=== PATIENT | female | born 1945 | race Caucasian/White ===

== ENCOUNTER → 2016-06-21 | Outpatient (CLI) | payer OTHER, MEDICAID ==
[~2016-06-21] MED LIST: /DULO30CA; /DULO30CA OR; /ESOM40CA; /INSU7030; /INSU7030 SC; /LOR25TA OR; /LOR25TA PO; ADV250INH INH; ALBU83IN INH; ALEV220T26 PO; AMBI10TA; AMBI10TA OR; AMLO10TA2 PO; AMLO5TAB OR; AMOX500C PO; ASPI1TAB PO; ASPI325T PO; ASPI32ECTA PO; AZIT500T2 PO; CALC600T10; CALCTAB22 OR; CELE40TA PO; CETI10TA; CETI10TA OR; CHLORTHALIDONE PO; CIPR500T4 PO; CRES20TA PO; CRES40TA PO; Celexa OR; DIOV320T; DIOV320T PO; DOXY150C PO; DULO30CA PO; ECOT325T5; ECOT325T5 OR; FERR325T OR; FURO1TAB15 PO; FURO40TA2 PO; GABA600T3; GABA600T3 OR; GEMF600T OR; GLUC850T; GLUC850T OR; GLYB5TA PO; HUMULIN; HUMULIN N; HUMULIN N SC; HUMULIN N SUBQ; HYDR-3719 PO; HYDR4TAB OR; HYDROCODONE OR; HYDROCODONE PO; INCR1INH INH; INSUNSD SC; IPRASOL4 INH; K-TA10TA; K-TA10TA OR; LASI40TA; LASI40TA OR; LASI40TA PO; LASI80TA PO; LEVO500T32 PO; LOPR1TAB6 PO; LOPR50TA; LOPR50TA OR; LYRI200C PO; LYRI75CA OR; MAGN400C2 PO; MAGN500T5 PO; METF850T PO; METO25TAB PO; MULTCAP11 PO; MULTIVIT; MULTIVIT OR; MULTIVIT PO; NAPR-239 OR; NEUR100C OR; NEUR300C PO; NEXI40CA PO; NEXI40GR OR; NIAC500C OR; NIAS10003; NIAS500T2; NITR0.4S; NITR0.4S SL; NITR4TASL SL; NOVO70VL; NOVOLIN SC; OSEL75CA PO; PAIN325T OR; PENN1.5S TD; PENN1.5S2 TD; PERC5TAB8 OR; PERC5TAB8 PO; PERC7.5T8 OR; POTA20TA2; PRED10PA PO; PRED10TA PO; PRED20TA PO; PRED5TA PO; PREG50CA OR; RANI150C; RANI150C OR; RANI150C PO; RANI15TA PO; RHINOCORT; SIMV20TA2; SIMV20TA2 OR; SOMA350T OR; SPIR12.9 INH; SPIR1CAP INH; SPIR25TA4 PO; THERGRAN; TRAM50TA2 OR; TRIC145T19; TRIC145T19 OR; VALS40TA; VALS40TA PO; VIBR100C PO; VICT18IN SC; VOLT1GEL EX; VOLT1GEL TOP; VOLT1GEL24 TD; ZOLP5TAB PO; [UNRECOGNIZED DRUG - OTHER]; chlorthalidone PO
--- NOTE | 2016-07-09 02:00 | ECWPNPC ---
PATIENT NAME: ROSALVA MOSES : 1945 GENDER: FEMALE VISIT DATE: 06/21/2016 DISCHARGE DATE: 06/21/16 1543 VISIT LOCKED DATE TIME: PHYSICIAN: NOE VALLEJO RESOURCE: NOE VALLEJO REASON FOR APPOINTMENT 1. BACK HISTORY OF PRESENT ILLNESS HISTORY OF PRESENT ILLNESS: 70 Y/O FEMALE WITH HX OF CHRONIC LBP AND BILAT. 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 CURRENTLY USING LYRICA 200MG BID AND HYDROCODONE 10/325 UP TO 4X DAY PRN FOR SEVERE PAIN WITH GOOD EFFECT. REPORTS IMPROVED ACTIVITY TOLERANCE.HX OF MULTIPLE COMORBIDITIES AND HOSPITALIZATIONS. PAIN THE PATIENT DESCRIBES THE PAIN... THE PATIENT DESCRIBES THE PAIN... THE PATIENT DESCRIBES THE PAIN... THE PATIENT DESCRIBES THE PAIN... PAIN THE PATIENT DESCRIBES THE PAIN... THE PATIENT DESCRIBES THE PAIN... THE PATIENT DESCRIBES THE PAIN... THE PATIENT DESCRIBES THE PAIN... FALL RISK SCREENING: SCREENING :NO FALLS IN THE PAST YEAR CURRENT MEDICATIONS TAKING LYRICA 200 MG CAPSULE 1 CAPSULE ORALLY BID MDD2 TAKING ZOLPIDEM 5 MG TABLET 1 TAB(S) ORAL QHS TAKING ESOMEPRAZOLE MAGNESIUM 40 MG CAPSULE DELAYED RELEASE 1 CAPSULE ORALLY ONCE A DAY TAKING PREDNISONE 10 MG 1 TAB ORAL DAILY TAKING FUROSEMIDE 40 MG _ 1 TABLET ORALLY 2 TABLETS IN THE AM AND 1 IN PM TAKING CALCITRIOL 0.25 MCG CAPSULE 1 CAPSULE ORALLY MON, WED, FRI TAKING AMLODIPINE BESYLATE 10 MG TABLET 1 TABLET ORALLY ONCE A DAY TAKING ASPIRIN 325 MG TABLET 1 TABLET ORALLY ONCE A DAY TAKING CYMBALTA 30 MG CAPSULE DELAYED RELEASE PARTICLES 1 CAPSULE ORALLY TWICE A DAY TAKING HUMULIN N 100 UNIT/ML SUSPENSION 40 UNITS SUBCUTANEOUS BID TAKING METOPROLOL TARTRATE 25 MG TABLET 1 TABLET ORALLY TWICE A DAY TAKING NITROGLYCERIN 0.4 MG TABLET SUBLINGUAL SUBLINGUAL DIRECTED TAKING ZANTAC 150 MG TABLET 1 TABLET ORALLY DAILY TAKING CRESTOR 20 MG TABLET 1 TABLET ORALLY ONCE A DAY AT BEDTIME TAKING SPIRIVA HANDIHALER 18 MCG CAPSULE 1 CAPSULE INHALATION ONCE A DAY NEEDED TAKING ADVAIR DISKUS 250-50 MCG/DOSE AEROSOL POWDER BREATH ACTIVATED 1 PUFF INHALATION TWICE A DAY TAKING MAGNESIUM 500 MG TABLET 1 TABLET WITH A MEAL ORALLY BID TAKING SPIRONOLACTONE 25 MG TABLET 1 TABLET ORALLY EVERY OTHER DAY TAKING NORCO 10-325 MG TABLET 1 ORALLY Q6H PRN MDD4 NOT-TAKING FERROUS SULFATE 325 (65 FE) MG TABLET 1 TABLET ORALLY ONCE A DAY NOT-TAKING VITAMIN D (ERGOCALCIFEROL) 05878 UNIT CAPSULE 1 CAPSULE ORALLY ONCE A DAY NOT-TAKING HYDROCODONE-ACETAMINOPHEN 10-325 MG TABLET 1 TABLET NEEDED ORALLY EVERY 6 HOURS NEEDED NOT-TAKING DOXYCYCLINE HYCLATE 100 MG CAPSULE 1 CAPSULE ORALLY TWICE A DAY NOT-TAKING NEXIUM 40 MG 1 CAPSULE ORALLY ONCE A DAY NOT-TAKING LASIX 40 MG TABLET 2 TABLET ORALLY DAILY NOT-TAKING METFORMIN HCL 850 MG TABLET 1 TABLET WITH A MEAL ORALLY THREE TIMES A DAY NOT-TAKING DIOVAN 320 MG TABLET 1 TABLET ORALLY ONCE A DAY NOT-TAKING LYRICA 200 MG CAPSULE 1 CAPSULE ORALLY ONCE DAILY NOT-TAKING VICTOZA 1.8 MG SOLUTION PEN-INJECTOR SUBCUTANEOUS ONCE A DAY AT BEDTIME MEDICATION LIST REVIEWED AND RECONCILED WITH THE PATIENT PAST MEDICAL HISTORY CONGESTIVE HEART FAILURE HYPERTENSION 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 NEW PATIENT PAIN DIARY TODAY'S VISITNOTES FROM 0-10, WHAT LEVEL IS YOUR PAIN TODAY?0 PAIN CLINIC PFS, CLERGY, PUBLIC HEALTH REFERRALS PFS REFERRAL NEEDED?NO CLERGY REFERRAL NEEDED?NO PUBLIC HEALTH REFERRAL NEEDED?NO WAS THE PROVIDER NOTIFIED OF ANY PERTINENT INFO?NO PFS REFERRAL NEEDED?NO CLERGY REFERRAL NEEDED?NO PUBLIC HEALTH REFERRAL NEEDED?NO WAS THE PROVIDER NOTIFIED OF ANY PERTINENT INFO?NO REVIEW OF SYSTEMS CONSTITUTIONAL: ANY CHANGE IN YOUR MEDICAL CONDITION? NO . CHILLS NO . FEVER NO . INFECTION: DO YOU HAVE NEW INFECTIONS? NO . DO YOU HAVE HISTORY OF MRSA? NO . MUSCULOSKELETAL: ANY NEW PATTERNS OF PAIN OR NUMBNESS? NO . GASTROENTEROLOGY: ANY NEW CHANGE IN BOWEL CONTROL? NO . GENITOURINARY: ANY NEW CHANGE IN BLADDER CONTROL? NO . IS THERE A CHANCE YOU COULD BE ? NO . HEMATOLOGY/LYMPH: DO YOU TAKE ANY BLOOD THINNERS? (FOR EXAMPLE- COUMADIN, PLAVIX, AGGRENOX, PLATEL, PRADAXA, OR XARELTO) NO . WHEN WAS YOUR LAST DOSE? DATE: TIME: . NEUROLOGY: HAVE YOU FALLEN IN THE PAST 6 MONTHS? YES . ANY NEW EXTREMITY NUMBNESS OR WEAKNESS? NO . CARDIOLOGY: DO YOU HAVE A PACEMAKER OR DEFIBRILLATOR? NO . RESPIRATORY: HAVE YOU BEEN SICK IN THE PAST WEEK? NO . FEVER NO . FLU LIKE SYMPTOMS? NO . COUGH NO . INTEGUMENTARY: DO YOU HAVE ANY RASHES OR OPEN SORES? NO . ALLERGIC/IMMUNO: ARE YOU ALLERGIC TO SHELLFISH OR IV DYE? NO . ANY NEW ALLERGIES? NO . PSYCHIATRIC: DO YOU HAVE THOUGHTS OF HURTING YOURSELF OR SOMEONE ELSE? NO . ARE YOU ABUSED, NEGLECTED, OR IN AN UNSAFE ENVIRONMENT? NO . ENDOCRINOLOGY: ARE YOU DIABETIC? YES . OTHER: DO YOU NEED ANY PRESCRIPTIONS? YES . IF YES, PLEASE LIST: ____ . ANY NEW PROBLEMS WITH YOUR MEDICATIONS? NO . WHEN DID YOU LAST EAT? ____ . WHEN DID YOU LAST DRINK? ____ . WHAT DID YOU LAST DRINK? ____ . NAME OF PERSON DRIVING YOU HOME? ____ . DO YOU HAVE ANY OTHER QUESTIONS OR CONCERNS NO . REVIEWED BY: PROVIDER: NOE STINSON . VITAL SIGNS WT 182 LBS, HT 63 IN, BMI 32.24 INDEX, BP 144/71 MM HG, HR 57 /MIN, RR 18 /MIN, TEMP 96.7 F, OXYGEN SAT % 90, NA INITIALS SC 15:05, REVIEWED BY: KG. EXAMINATION GENERAL EXAMINATION: LUNGS:LUNG SOUNDS ARE CLEAR. HEART:HEART RATE REGULAR. MUSCULOSKELETAL:*, MUSCLE STRENGTH TESTING 3/5 BILAT.PALPATION: POSITIVE FOR PAIN OVER L/S SPINE. POSITIVE FOR PAIN OVER L/S PARSPINALS.. ASSESSMENTS POST LAMINECTOMY SYNDROME - M96.1 (PRIMARY) CHRONIC PRESCRIPTION OPIATE USE - Z79.891 TREATMENT POST LAMINECTOMY SYNDROME CONTINUE LYRICA CAPSULE, 200 MG, 1 CAPSULE, ORALLY, BID MDD2 REFILL NORCO TABLET, 10-325 MG, 1, ORALLY, Q6H PRN MDD4, 30 DAY(S), 120, REFILLS 0 NOTES: ISTOP REGISTRY REVIEWED AND DEMNOSTRATES COMPLLIANCE. BRINGS IN MEDICATIONS WHICH IS APPROPRIATE FOR WHAT WAS DISPENSED. RECENT URINE TOXICOLOGY REVIEWED. NO UNAUTHORIZED MEDICATIONS. NO ILLICIT SUBSTANCES AND PRESCRIBED MEDICATIONS WERE PRESENT. , RISKS AND BENEFITS OF NARCOTIC/OPIOD MEDICATIONS WERE REVIEWED WITH PATIENT - THIS INCLUDES BUT IS NOT LIMITED TO RISK OF DEPENDANCE/DEVELOPMENT OF ADDICTION, MOOD DISTURBANCE AND DEPRESSION, OSTEOPOROSIS, HORMONAL AND LABIDAL CHANGES, RESPIRATORY DEPRESSION AND . PATIENT IS ADVISED NOT TO DRIVE WHILE ON THESE MEDICATIONS. FOLLOW UP 2 MONTHS ELECTRONICALLY SIGNED BY MILAD ARVIZU ON 07/08/2016 AT 11:37 AM EST DISCLAIMER : THIS IS A VISIT SUMMARY EXTRACTED FROM THE [employer] CHART. IT IS NOT A COPY OF THE [employer] PROGRESS NOTE. ALINE
== END ==
LOC: M PAIN 14:40
PROVIDERS: ATTEND Nurse Practitioner Family
DX: Z09 Encounter for follow-up examination after completed treatment for conditions other than malignant neoplasm (principal); G89.29 Other chronic pain; M96.1 Postlaminectomy syndrome, not elsewhere classified; M79.661 Pain in right lower leg; M79.662 Pain in left lower leg; I50.9 Heart failure, unspecified; I10 Essential (primary) hypertension; E78.00 Pure hypercholesterolemia, unspecified; E11.9 Type 2 diabetes mellitus without complications; M19.90 Unspecified osteoarthritis, unspecified site; M48.06 Spinal stenosis, lumbar region; Z79.52 Long term (current) use of systemic steroids; Z79.82 Long term (current) use of aspirin; Z79.4 Long term (current) use of insulin; Z79.891 Long term (current) use of opiate analgesic; Z79.899 Other long term (current) drug therapy

== ENCOUNTER → 2016-07-07 | Outpatient (REF) | payer OTHER, MEDICAID ==
[2016-07-07 19:16] LABS: BACTERIA, URINE LARGE AMOUNT; HYALINE CAST, URINE NONE SEEN /lpf (0-1); SQUAMOUS EPITHELIAL CELL URINE MOD AMOUNT /hpf (SMALL AMT)
[2016-07-07 19:17] LABS: MICROSCOPIC EXAM PERFORMED
== END ==
LOC: M LAB REF 17:00
PROVIDERS: ATTEND Internal Medicine Nephrology
DX: N39.0 Urinary tract infection, site not specified (principal); N18.3 Chronic kidney disease, stage 3 (moderate)

== ENCOUNTER → 2016-08-19 | Outpatient (CLI) | payer OTHER, MEDICAID ==
--- NOTE | 2016-08-27 02:13 | ECWPNPC ---
PATIENT NAME: ROSALVA MOSES : 1945 GENDER: FEMALE VISIT DATE: 08/19/2016 DISCHARGE DATE: 08/19/16 1520 VISIT LOCKED DATE TIME: PHYSICIAN: NOE VALLEJO RESOURCE: NOE VALLEJO REASON FOR APPOINTMENT 1. BACK HISTORY OF PRESENT ILLNESS HISTORY OF PRESENT ILLNESS: 70 Y/O FEMALE WITH HX OF CHRONIC LBP AND BILAT. 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 CURRENTLY USING LYRICA 200MG BID AND HYDROCODONE 10/325 UP TO 4X DAY PRN FOR SEVERE PAIN WITH GOOD EFFECT. REPORTS IMPROVED ACTIVITY TOLERANCE.HX OF MULTIPLE COMORBIDITIES AND HOSPITALIZATIONS.STATES LAST HYDROCODONE WAS TAKEN THIS AM,AND TOOK 3 YESTERDAY. PAIN THE PATIENT DESCRIBES THE PAIN... THE PATIENT DESCRIBES THE PAIN... THE PATIENT DESCRIBES THE PAIN... THE PATIENT DESCRIBES THE PAIN... THE PATIENT DESCRIBES THE PAIN... FALL RISK SCREENING: SCREENING :NO FALLS IN THE PAST YEAR CURRENT MEDICATIONS TAKING ZOLPIDEM 5 MG TABLET 1 TAB(S) ORAL QHS TAKING ESOMEPRAZOLE MAGNESIUM 40 MG CAPSULE DELAYED RELEASE 1 CAPSULE ORALLY ONCE A DAY TAKING PREDNISONE 10 MG 1 TAB ORAL DAILY TAKING FUROSEMIDE 40 MG _ 1 TABLET ORALLY 2 TABLETS IN THE AM AND 1 IN PM TAKING CALCITRIOL 0.25 MCG CAPSULE 1 CAPSULE ORALLY MON, TUE, TUE TAKING AMLODIPINE BESYLATE 10 MG TABLET 1 TABLET ORALLY ONCE A DAY TAKING ASPIRIN 325 MG TABLET 1 TABLET ORALLY ONCE A DAY TAKING CYMBALTA 30 MG CAPSULE DELAYED RELEASE PARTICLES 1 CAPSULE ORALLY TWICE A DAY TAKING HUMULIN N 100 UNIT/ML SUSPENSION 50 UNITS SUBCUTANEOUS BID TAKING METOPROLOL TARTRATE 25 MG TABLET 1 TABLET ORALLY TWICE A DAY TAKING NITROGLYCERIN 0.4 MG TABLET SUBLINGUAL SUBLINGUAL DIRECTED TAKING ZANTAC 150 MG TABLET 1 TABLET ORALLY DAILY TAKING CRESTOR 20 MG TABLET 1 TABLET ORALLY ONCE A DAY AT BEDTIME TAKING ADVAIR DISKUS 250-50 MCG/DOSE AEROSOL POWDER BREATH ACTIVATED 1 PUFF INHALATION TWICE A DAY TAKING MAGNESIUM 500 MG TABLET 1 TABLET WITH A MEAL ORALLY BID TAKING SPIRONOLACTONE 25 MG TABLET 1 TABLET ORALLY EVERY OTHER DAY TAKING NORCO 10-325 MG TABLET 1 ORALLY Q6H PRN MDD4 TAKING LYRICA 200 MG CAPSULE 1 CAPSULE ORALLY BID MDD2 TAKING PROAIR HFA 108 (90 BASE) MCG/ACT AEROSOL SOLUTION 1 PUFF INHALATION EVERY 4-6 HOURS NEEDED NOT-TAKING SPIRIVA HANDIHALER 18 MCG CAPSULE 1 CAPSULE INHALATION ONCE A DAY NEEDED NOT-TAKING FERROUS SULFATE 325 (65 FE) MG TABLET 1 TABLET ORALLY ONCE A DAY NOT-TAKING VITAMIN D (ERGOCALCIFEROL) 47478 UNIT CAPSULE 1 CAPSULE ORALLY ONCE A DAY NOT-TAKING HYDROCODONE-ACETAMINOPHEN 10-325 MG TABLET 1 TABLET NEEDED ORALLY EVERY 6 HOURS NEEDED NOT-TAKING DOXYCYCLINE HYCLATE 100 MG CAPSULE 1 CAPSULE ORALLY TWICE A DAY NOT-TAKING NEXIUM 40 MG 1 CAPSULE ORALLY ONCE A DAY NOT-TAKING LASIX 40 MG TABLET 2 TABLET ORALLY DAILY NOT-TAKING METFORMIN HCL 850 MG TABLET 1 TABLET WITH A MEAL ORALLY THREE TIMES A DAY NOT-TAKING DIOVAN 320 MG TABLET 1 TABLET ORALLY ONCE A DAY NOT-TAKING LYRICA 200 MG CAPSULE 1 CAPSULE ORALLY ONCE DAILY NOT-TAKING VICTOZA 1.8 MG SOLUTION PEN-INJECTOR SUBCUTANEOUS ONCE A DAY AT BEDTIME MEDICATION LIST REVIEWED AND RECONCILED WITH THE PATIENT PAST MEDICAL HISTORY CONGESTIVE HEART FAILURE HYPERTENSION 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 REVIEW OF SYSTEMS CONSTITUTIONAL: ANY CHANGE IN YOUR MEDICAL CONDITION? NO . CHILLS NO . FEVER NO . INFECTION: DO YOU HAVE NEW INFECTIONS? NO . DO YOU HAVE HISTORY OF MRSA? NO . MUSCULOSKELETAL: ANY NEW PATTERNS OF PAIN OR NUMBNESS? NO . GASTROENTEROLOGY: ANY NEW CHANGE IN BOWEL CONTROL? NO . GENITOURINARY: ANY NEW CHANGE IN BLADDER CONTROL? NO . IS THERE A CHANCE YOU COULD BE ? NO . HEMATOLOGY/LYMPH: DO YOU TAKE ANY BLOOD THINNERS? (FOR EXAMPLE- COUMADIN, PLAVIX, AGGRENOX, PLATEL, PRADAXA, OR XARELTO) NO . WHEN WAS YOUR LAST DOSE? DATE: TIME: . NEUROLOGY: HAVE YOU FALLEN IN THE PAST 6 MONTHS? YES . ANY NEW EXTREMITY NUMBNESS OR WEAKNESS? NO . CARDIOLOGY: DO YOU HAVE A PACEMAKER OR DEFIBRILLATOR? NO . RESPIRATORY: HAVE YOU BEEN SICK IN THE PAST WEEK? NO . FEVER NO . FLU LIKE SYMPTOMS? NO . COUGH NO . INTEGUMENTARY: DO YOU HAVE ANY RASHES OR OPEN SORES? NO . ALLERGIC/IMMUNO: ARE YOU ALLERGIC TO SHELLFISH OR IV DYE? NO . ANY NEW ALLERGIES? NO . PSYCHIATRIC: DO YOU HAVE THOUGHTS OF HURTING YOURSELF OR SOMEONE ELSE? NO . ARE YOU ABUSED, NEGLECTED, OR IN AN UNSAFE ENVIRONMENT? NO . ENDOCRINOLOGY: ARE YOU DIABETIC? YES . OTHER: DO YOU NEED ANY PRESCRIPTIONS? YES . IF YES, PLEASE LIST: HYDROCODONE/ACETAMINOPHEN 10/325 MG . ANY NEW PROBLEMS WITH YOUR MEDICATIONS? NO . WHEN DID YOU LAST EAT? ____ . WHEN DID YOU LAST DRINK? ____ . WHAT DID YOU LAST DRINK? ____ . NAME OF PERSON DRIVING YOU HOME? ____ . DO YOU HAVE ANY OTHER QUESTIONS OR CONCERNS NO . REVIEWED BY: PROVIDER: NOE STINSON . VITAL SIGNS WT 184 LBS, HT 63 IN, BMI 32.59 INDEX, BP 137/63 MM HG, HR 63 /MIN, RR 18 /MIN, TEMP 97.0 F, OXYGEN SAT % 92%, NA INITIALS SC 14:08, REVIEWED BY: VENECIA. EXAMINATION GENERAL EXAMINATION: LUNGS:LUNG SOUNDS ARE CLEAR. HEART:HEART RATE REGULAR. MUSCULOSKELETAL:*, MUSCLE STRENGTH TESTING 3/5 BILAT.PALPATION: POSITIVE FOR PAIN OVER L/S SPINE. POSITIVE FOR PAIN OVER L/S PARSPINALS.. ASSESSMENTS POST LAMINECTOMY SYNDROME - M96.1 (PRIMARY) CHRONIC PRESCRIPTION OPIATE USE - Z79.891 TREATMENT POST LAMINECTOMY SYNDROME CONTINUE LYRICA CAPSULE, 200 MG, 1 CAPSULE, ORALLY, BID MDD2 REFILL NORCO TABLET, 10-325 MG, 1, ORALLY, Q6H PRN MDD4, 30 DAY(S), 120, REFILLS 0 NOTES: ISTOP REGISTRY REVIEWED AND DEMNOSTRATES COMPLLIANCE. BRINGS IN MEDICATIONS WHICH IS APPROPRIATE FOR WHAT WAS DISPENSED. RECENT URINE TOXICOLOGY REVIEWED. NO UNAUTHORIZED MEDICATIONS. NO ILLICIT SUBSTANCES AND PRESCRIBED MEDICATIONS WERE PRESENT. , RISKS AND BENEFITS OF NARCOTIC/OPIOD MEDICATIONS WERE REVIEWED WITH PATIENT - THIS INCLUDES BUT IS NOT LIMITED TO RISK OF DEPENDANCE/DEVELOPMENT OF ADDICTION, MOOD DISTURBANCE AND DEPRESSION, OSTEOPOROSIS, HORMONAL AND LABIDAL CHANGES, RESPIRATORY DEPRESSION AND . PATIENT IS ADVISED NOT TO DRIVE WHILE ON THESE MEDICATIONS.URINE TOX TODAY. PROCEDURE CODES FA211 ESTABILISHED PATIENT [facility]AC[facility] CHARGE G1198 BP SCR PRFRM RCMDD DEFIND SCR INTVL G7530 PAIN ASSESS POS TOOL F/U PLAN DOC 3016F PT SCRND UNHLTHY OH USE 1124F ACP DISCUSS-NO [id number] DOCD 0518F FALL PLAN OF CARE DOCD G8427 DOC MEDS VERIFIED W/PT OR RE G8417 BMI >=30 CALCUATE W/FOLLOWUP 3288F FALL RISK ASSESSMENT DOCD 4004F PT TOBACCO SCREEN RCVD TLK DISPOSITION & COMMUNICATION FOLLOW UP 2 MONTHS ELECTRONICALLY SIGNED BY MILAD ARVIZU ON 08/24/2016 AT 06:55 PM EDT DISCLAIMER : THIS IS A VISIT SUMMARY EXTRACTED FROM THE [employer] CHART. IT IS NOT A COPY OF THE [employer] PROGRESS NOTE. MTDD
== END ==
LOC: M PAIN 14:00
PROVIDERS: ATTEND Nurse Practitioner Family
DX: Z09 Encounter for follow-up examination after completed treatment for conditions other than malignant neoplasm (principal); G89.29 Other chronic pain; M96.1 Postlaminectomy syndrome, not elsewhere classified; I10 Essential (primary) hypertension; E11.9 Type 2 diabetes mellitus without complications; I50.9 Heart failure, unspecified; E78.00 Pure hypercholesterolemia, unspecified; M19.90 Unspecified osteoarthritis, unspecified site; Z79.52 Long term (current) use of systemic steroids; Z79.82 Long term (current) use of aspirin; Z79.4 Long term (current) use of insulin; Z79.891 Long term (current) use of opiate analgesic; Z79.899 Other long term (current) drug therapy

== ENCOUNTER 2016-09-21 13:27 | Emergency (ER) | payer OTHER, MEDICAID ==
[~2016-09-21] VITALS: Ht 160 cm; Wt 82.6 kg
[2016-09-21] MEDS ORDERED: NOVOINJ5 SC (13:49)
[2016-09-21] MEDS ORDERED: NORCO, ANEXSIA 5/325MG TABLET (HYDROcodone/ACETAMINOPHEN) PO ONE (14:45)
--- NOTE | 2016-09-21 15:07 | REP ---
RIGHT KNEE, FIVE VIEWS: HISTORY: Fall. There is no acute fracture or dislocation. There is narrowing of the joint spaces. Osteophytes are present on the patella. Chondrocalcinosis is present. IMPRESSION: Degenerative change as described above. Signed by Solomon Branham MD 09/21/2016 03:11 P
[2016-09-21 15:18] VITALS: BP 146/70
== END 2016-09-21 15:48 | disposition home or self-care (01) ==
LOC: M ED 14:39
DX: S80.01XA Contusion of right knee, initial encounter (principal); W19.XXXA Unspecified fall, initial encounter; Y92.099 Unspecified place in other non-institutional residence as the place of occurrence of the external cause; Y93.01 Activity, walking, marching and hiking; Y99.9 Unspecified external cause status; E11.9 Type 2 diabetes mellitus without complications; M25.761 Osteophyte, right knee; M11.261 Other chondrocalcinosis, right knee; Z79.82 Long term (current) use of aspirin; Z79.4 Long term (current) use of insulin; Z79.899 Other long term (current) drug therapy; Z91.89 Other specified personal risk factors, not elsewhere classified

== ENCOUNTER → 2016-10-18 | Outpatient (CLI) | payer OTHER, MEDICAID ==
[~2016-10-18] MED LIST changes: +NOVOINJ5 SC
--- NOTE | 2016-11-05 00:46 | ECWPNPC ---
PATIENT NAME: ROSALVA MOSES : 1945 GENDER: FEMALE VISIT DATE: 10/18/2016 DISCHARGE DATE: 10/18/16 1536 VISIT LOCKED DATE TIME: PHYSICIAN: NOE VALLEJO RESOURCE: NOE VALLEJO REASON FOR APPOINTMENT 1. BACK HISTORY OF PRESENT ILLNESS HISTORY OF PRESENT ILLNESS: 70 Y/O FEMALE WITH HX OF CHRONIC LBP AND BILAT. 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 CURRENTLY USING LYRICA 200MG BID AND HYDROCODONE 10/325 UP TO 4X DAY PRN FOR SEVERE PAIN WITH GOOD EFFECT. REPORTS IMPROVED ACTIVITY TOLERANCE.HX OF MULTIPLE COMORBIDITIES AND HOSPITALIZATIONS. PAIN THE PATIENT DESCRIBES THE PAIN... THE PATIENT DESCRIBES THE PAIN... THE PATIENT DESCRIBES THE PAIN... THE PATIENT DESCRIBES THE PAIN... THE PATIENT DESCRIBES THE PAIN... THE PATIENT DESCRIBES THE PAIN... FALL RISK SCREENING: SCREENING :NO FALLS IN THE PAST YEAR CURRENT MEDICATIONS TAKING ZOLPIDEM 5 MG TABLET 1 TAB(S) ORAL QHS TAKING ESOMEPRAZOLE MAGNESIUM 40 MG CAPSULE DELAYED RELEASE 1 CAPSULE ORALLY ONCE A DAY TAKING PREDNISONE 10 MG 1 TAB ORAL DAILY TAKING FUROSEMIDE 40 MG _ 1 TABLET ORALLY 2 TABLETS IN THE AM AND 1 IN PM TAKING CALCITRIOL 0.25 MCG CAPSULE 1 CAPSULE ORALLY MON, TUE, TUE TAKING AMLODIPINE BESYLATE 10 MG TABLET 1 TABLET ORALLY ONCE A DAY TAKING ASPIRIN 325 MG TABLET 1 TABLET ORALLY ONCE A DAY TAKING CYMBALTA 30 MG CAPSULE DELAYED RELEASE PARTICLES 1 CAPSULE ORALLY TWICE A DAY TAKING HUMULIN N 100 UNIT/ML SUSPENSION 50 UNITS SUBCUTANEOUS BID TAKING METOPROLOL TARTRATE 25 MG TABLET 1 TABLET ORALLY TWICE A DAY TAKING NITROGLYCERIN 0.4 MG TABLET SUBLINGUAL SUBLINGUAL DIRECTED TAKING ZANTAC 150 MG TABLET 1 TABLET ORALLY DAILY TAKING CRESTOR 20 MG TABLET 1 TABLET ORALLY ONCE A DAY AT BEDTIME TAKING ADVAIR DISKUS 250-50 MCG/DOSE AEROSOL POWDER BREATH ACTIVATED 1 PUFF INHALATION TWICE A DAY TAKING MAGNESIUM 500 MG TABLET 1 TABLET WITH A MEAL ORALLY BID TAKING SPIRONOLACTONE 25 MG TABLET 1 TABLET ORALLY EVERY OTHER DAY TAKING PROAIR HFA 108 (90 BASE) MCG/ACT AEROSOL SOLUTION 1 PUFF INHALATION EVERY 4-6 HOURS NEEDED TAKING LYRICA 200 MG CAPSULE 1 CAPSULE ORALLY BID MDD2 TAKING NORCO 10-325 MG TABLET 1 ORALLY Q6H PRN MDD4 TAKING MUCINEX 600 MG TABLET EXTENDED RELEASE 12 HOUR 1 TABLET NEEDED ORALLY EVERY 12 HRS NOT-TAKING SPIRIVA HANDIHALER 18 MCG CAPSULE 1 CAPSULE INHALATION ONCE A DAY NEEDED NOT-TAKING FERROUS SULFATE 325 (65 FE) MG TABLET 1 TABLET ORALLY ONCE A DAY NOT-TAKING VITAMIN D (ERGOCALCIFEROL) 97262 UNIT CAPSULE 1 CAPSULE ORALLY ONCE A DAY NOT-TAKING HYDROCODONE-ACETAMINOPHEN 10-325 MG TABLET 1 TABLET NEEDED ORALLY EVERY 6 HOURS NEEDED NOT-TAKING DOXYCYCLINE HYCLATE 100 MG CAPSULE 1 CAPSULE ORALLY TWICE A DAY NOT-TAKING NEXIUM 40 MG 1 CAPSULE ORALLY ONCE A DAY NOT-TAKING LASIX 40 MG TABLET 2 TABLET ORALLY DAILY NOT-TAKING METFORMIN HCL 850 MG TABLET 1 TABLET WITH A MEAL ORALLY THREE TIMES A DAY NOT-TAKING DIOVAN 320 MG TABLET 1 TABLET ORALLY ONCE A DAY NOT-TAKING LYRICA 200 MG CAPSULE 1 CAPSULE ORALLY ONCE DAILY NOT-TAKING VICTOZA 1.8 MG SOLUTION PEN-INJECTOR SUBCUTANEOUS ONCE A DAY AT BEDTIME MEDICATION LIST REVIEWED AND RECONCILED WITH THE PATIENT PAST MEDICAL HISTORY CONGESTIVE HEART FAILURE HYPERTENSION 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 SURGICAL HISTORY ANTERIOR POSTERIOR FUSION BACK SURGERY 12/28 LEFT FOOT NERVE ENTRAPMENT BACK SURGERY 1999 BACK SURGERY TOTAL HYSTERECTOMY CHOLECYSTECTOMY RIGHT SHOULDER SURGERY LEFT LOWER LEG VENOUS STRIPPING REVIEW OF SYSTEMS CONSTITUTIONAL: ANY CHANGE IN YOUR MEDICAL CONDITION? NO . CHILLS NO . FEVER NO . INFECTION: DO YOU HAVE NEW INFECTIONS? NO . DO YOU HAVE HISTORY OF MRSA? NO . MUSCULOSKELETAL: ANY NEW PATTERNS OF PAIN OR NUMBNESS? YES. PT STATES SHE JUST MOVED TO A NEW [place]WELLING 3 WEEKS AGO, STILL UNPACKING. PT STATES SHE HAS TO DO ALL OF THE UNPACKING HERSELF. PT C/O NEW PATTERNS OF PAIN TO LOWER BACK AND RIGHT LEG 01/06. PT STATES PAIN REGIMEN HELPS TO KEEP PAIN UNDER CONTROL. . GASTROENTEROLOGY: ANY NEW CHANGE IN BOWEL CONTROL? NO . GENITOURINARY: ANY NEW CHANGE IN BLADDER CONTROL? NO . IS THERE A CHANCE YOU COULD BE ? NO . HEMATOLOGY/LYMPH: DO YOU TAKE ANY BLOOD THINNERS? (FOR EXAMPLE- COUMADIN, PLAVIX, AGGRENOX, PLATEL, PRADAXA, OR XARELTO) NO . WHEN WAS YOUR LAST DOSE? DATE: TIME: . NEUROLOGY: HAVE YOU FALLEN IN THE PAST 6 MONTHS? YES. PT STATES BEFORE MOVING IN PREVIOUS DWELLING, PT WAS GETTING OUT OF BED, LOST BALANCE, FELL TO FLOOR INTO CLOSET ONTO BOXES. PT STATES SHE WAS ABLE TO GET UP INDEPENDANTLY, PAIN WAS NOT SO BAD SO SHE DIDN'T SEEK MEDICAL ASSISTANCE.&NBSP;. ANY NEW EXTREMITY NUMBNESS OR WEAKNESS? &NBSP;&NBSP; NO&NBSP;. CARDIOLOGY: DO YOU HAVE A PACEMAKER OR DEFIBRILLATOR? NO . RESPIRATORY: HAVE YOU BEEN SICK IN THE PAST WEEK? NO . FEVER NO . FLU LIKE SYMPTOMS? NO . COUGH NO . INTEGUMENTARY: DO YOU HAVE ANY RASHES OR OPEN SORES? NO . ALLERGIC/IMMUNO: ARE YOU ALLERGIC TO SHELLFISH OR IV DYE? NO . ANY NEW ALLERGIES? NO . PSYCHIATRIC: DO YOU HAVE THOUGHTS OF HURTING YOURSELF OR SOMEONE ELSE? NO . ARE YOU ABUSED, NEGLECTED, OR IN AN UNSAFE ENVIRONMENT? NO . ENDOCRINOLOGY: ARE YOU DIABETIC? YES . OTHER: DO YOU NEED ANY PRESCRIPTIONS? YES. LYRICA . IF YES, PLEASE LIST: ____ . ANY NEW PROBLEMS WITH YOUR MEDICATIONS? NO . WHEN DID YOU LAST EAT? ____ . WHEN DID YOU LAST DRINK? ____ . WHAT DID YOU LAST DRINK? ____ . NAME OF PERSON DRIVING YOU HOME? ____ . DO YOU HAVE ANY OTHER QUESTIONS OR CONCERNS NO . REVIEWED BY: PROVIDER: NOE STINSON . VITAL SIGNS WT 184 LBS, HT 63 IN, BMI 32.59 INDEX, BP 134/62 MM HG, HR 66 /MIN, RR 18 /MIN, TEMP 96.8 F, OXYGEN SAT % 92, SAFE IN ENV? (Y/N) Y, NA INITIALS MP, REVIEWED BY: EM. EXAMINATION GENERAL EXAMINATION: LUNGS:LUNG SOUNDS ARE CLEAR. HEART:HEART RATE REGULAR. MUSCULOSKELETAL:*, MUSCLE STRENGTH TESTING 3/5 BILAT.PALPATION: POSITIVE FOR PAIN OVER L/S SPINE. POSITIVE FOR PAIN OVER L/S PARSPINALS., TRIGGER POINTS:NOTED RIGHT LUMBAR PARASPINAL AND PIRIFORMIS. ASSESSMENTS POST LAMINECTOMY SYNDROME - M96.1 (PRIMARY) MYALGIA - M79.1 CHRONIC PRESCRIPTION OPIATE USE - Z79.891 TREATMENT POST LAMINECTOMY SYNDROME REFILL NORCO TABLET, 10-325 MG, 1, ORALLY, Q6H PRN MDD4, 30 DAY(S), 120, REFILLS 0 CONTINUE LYRICA CAPSULE, 200 MG, 1 CAPSULE, ORALLY, BID MDD2 [facility] MRI SPINE, L.S. WITHOUT [id number] NOTES: ISTOP REGISTRY REVIEWED AND DEMNOSTRATES COMPLLIANCE. BRINGS IN MEDICATIONS WHICH IS APPROPRIATE FOR WHAT WAS DISPENSED. RECENT URINE TOXICOLOGY REVIEWED. NO UNAUTHORIZED MEDICATIONS. NO ILLICIT SUBSTANCES AND PRESCRIBED MEDICATIONS WERE PRESENT. , RISKS AND BENEFITS OF NARCOTIC/OPIOD MEDICATIONS WERE REVIEWED WITH PATIENT - THIS INCLUDES BUT IS NOT LIMITED TO RISK OF DEPENDANCE/DEVELOPMENT OF ADDICTION, MOOD DISTURBANCE AND DEPRESSION, OSTEOPOROSIS, HORMONAL AND LABIDAL CHANGES, RESPIRATORY DEPRESSION AND . PATIENT IS ADVISED NOT TO DRIVE WHILE ON THESE MEDICATIONS. PROCEDURE CODES FA211 ESTABILISHED PATIENT [facility] CHARGE DISPOSITION & COMMUNICATION FOLLOW UP 2WKS POST (REASON: REQUEST RIGHT LOW BACK TPI/PIRIFORMIS) ELECTRONICALLY SIGNED BY MILAD ARVIZU ON 11/04/2016 AT 05:17 PM EDT DISCLAIMER : THIS IS A VISIT SUMMARY EXTRACTED FROM THE TEAM INTERVAL CHART. IT IS NOT A COPY OF THE TEAM INTERVAL PROGRESS NOTE. ALINE
== END ==
LOC: M PAIN 14:40
PROVIDERS: ATTEND Nurse Practitioner Family
DX: M96.1 Postlaminectomy syndrome, not elsewhere classified (principal); M79.1 Myalgia; I11.9 Hypertensive heart disease without heart failure; I50.9 Heart failure, unspecified; E78.00 Pure hypercholesterolemia, unspecified; E11.9 Type 2 diabetes mellitus without complications; M19.90 Unspecified osteoarthritis, unspecified site; M48.06 Spinal stenosis, lumbar region; Z79.52 Long term (current) use of systemic steroids; Z79.82 Long term (current) use of aspirin; Z79.4 Long term (current) use of insulin; Z79.891 Long term (current) use of opiate analgesic; Z79.899 Other long term (current) drug therapy

== ENCOUNTER → 2016-11-15 | Outpatient (CLI) | payer OTHER, MEDICAID ==
--- NOTE | 2016-11-22 16:31 | REP ---
REASON: Low back pain, status-post transpedicular screw placement L2 through L4 inclusive and bilateral. There are no prior postoperative examinations for comparison. The latest prior examination is obtained at an outside institution and is dated 07/12/2012. We have been waiting for that prior to arrive for comparison which has delayed interpretation of our exam. There is magnetic susceptibility artifact seen from L2 to L4 inclusive from transpedicular screw placement. There is a septated oval shaped 7.4 cm in length x 2.2 cm anterior to posterior x 3.1 cm in width structure of T1 and T2 prolongation seen posterior to the posterior thecal sac in the postoperative soft-tissues, midline. This extends from the mid body of L2 to the superior endplate of L5. There is loss of disc space height at every level with bone graft material seen. L2-3 through L4-5 inclusive. All of this represents a change from the prior exam. There is no abnormal signal seen in the imaged portion of the spinal cord. The conus ends at L1. At the T12-L1 level there is no abnormality or significant change from the prior exam. At the L1-2 level there was a broad based annular bulge seen in conjunction with degenerative facet joint changes and thickening of the ligamentum flava. There is mild compression of the anterior thecal sac and the factors in concert cause mild central canal stenosis, slightly increased from the prior exam. At the L2-3 level there is magnetic susceptibility artifact. There is a broad based annular bulge. There is no evidence of foraminal narrowing of central canal stenosis. At the L3-4 level magnetic susceptibility artifact is again noted. There is no evidence of a disc extrusion, foraminal narrowing, or central canal stenosis. At the L4-5 level there is no disc herniation, foraminal narrowing or fabiola central stenosis. At L5-S1 there is a slight broad based annular bulge. Degenerative facet joint changes seen bilaterally with mild thickening of the ligamentum flava. The factors are causing mild central canal stenosis but there is no disc extrusion or foraminal narrowing. IMPRESSION: 1. There is a fluid collection in the posterior soft tissues abutting the posterior thecal sac as described above. 2. Postoperative changes and chronic changes at multiple levels as described above. Signed by Chito Bateman DO 11/23/2016 02:05 P
== END ==
LOC: M RAD 17:08
PROVIDERS: ATTEND Nurse Practitioner Family
DX: M96.1 Postlaminectomy syndrome, not elsewhere classified (principal)

== ENCOUNTER 2016-12-06 15:39 | Emergency (ER) | payer MEDICAID, OTHER ==
[~2016-12-06] VITALS: Ht 157.5 cm; Wt 85.0 kg
[~2016-12-06 15:39] MED LIST changes: -AVEL1TAB3 PO; -ESOM1CAP5
[2016-12-06] MEDS ORDERED: ESOM1CAP5 (15:58)
[2016-12-06] MEDS ORDERED: methylPREDNISolone INJ 125 MG/2 ML VIAL (J2930) IV ONE (16:45)
[2016-12-06] MEDS ORDERED: IPRATROPIUM 0.5MG/ALBUTEROL 2.5MG INH SOL UD 3ML (DUONEB)(J7620) NEB ONE (16:45)
[2016-12-06 16:54] LABS: BASO # 0.1 K/mm3 (0.0-0.2); BASO % 0.4 % (0.0-1.0); EOS # 0.1 K/mm3 (0.0-0.50); EOS % 0.6 % (0.0-3.0); LARGE UNSTAINED CELL # 0.1 K/mm3 (0.0-0.4); LARGE UNSTAINED CELL % 0.6 % (0.0-4.0); LYMPH # 1.5 K/mm3 (1.5-4.5); LYMPH % 10.2 % (24.0-44.0); MEAN CORPUSCULAR HEMOGLOBIN 28.7 pg (27.0-33.0); MEAN CORPUSCULAR VOLUME 86.9 fl (80.0-96.0); MONO # 0.4 K/mm3 (0.0-0.8); MONO % 3.1 % (0.0-5.0); NEUTROPHILS # 11.8 K/mm3 (1.8-7.7); NEUTROPHILS % 85.1 % (36.0-66.0); PLATELET COUNT, AUTOMATED 193 k/mm3 (150-450); RED CELL DISTRIBUTION WIDTH 15.4 % (11.5-14.5); WHITE BLOOD COUNT 13.9 K/mm3 (4.0-10.0)
--- NOTE | 2016-12-06 17:04 | REP ---
Chest one-view HISTORY: Shoulder pain Comparison: 08/25/2015 The lungs are clear. The cardiac silhouette is enlarged. The pulmonary vasculature is normal in appearance. Impression: Cardiomegaly. Signed by Solomon Branham MD 12/06/2016 04:55 P
[2016-12-06 17:20] LABS: CALCIUM LEVEL 9.1 MG/DL (8.8-10.2); CREATININE FOR GFR 1.37 MG/DL (0.55-1.02); GLOMERULAR FILTRATION RATE 40.5 (>39); POTASSIUM SERUM 4.2 MEQ/L (3.5-5.1)
--- NOTE | 2016-12-06 17:27 | REP ---
RIGHT SHOULDER, ONE VIEW: HISTORY: Pain. There is no acute fracture or dislocation. The joint spaces are normal in appearance. An osteophyte is present on the coracoid process. IMPRESSION: Degenerative change as described above. Signed by Solomon Branham MD 12/06/2016 05:51 P
[2016-12-06 18:19] VITALS: BP 144/65
--- NOTE | 2016-12-06 18:37 | REP ---
BILATERAL LOWER EXTREMITY DUPLEX VEINS: HISTORY: Swelling. Right lower extremity, there are no filling defects in the deep venous system. The deep venous system is patent. IMPRESSION: There is no deep venous thrombosis. Left lower extremity, there are no filling defects in the deep venous system. The deep venous system is patent. IMPRESSION: There is no deep venous thrombosis. Signed by Solomon Branham MD 12/06/2016 06:40 P
--- NOTE | 2016-12-07 18:23 | ECGEPIP ---
Stationary ECG Study [facility] - ED Test Date: 2016-12-06 Pat Name: ROSALVA MOSES Department: Room: - Gender: F Material Coordinator: sam : 1945 Requested By: MELLY Wall Order Number: [id number] Reading MD: Yudy Roblero Measurements Intervals [place] Rate: 51 P: 39 PA: 170 QRS: -59 QRSD: 97 T: 84 QT: 466 QTc: 431 Interpretive Statements SINUS BRADYCARDIA LEFT ANTERIOR FASCICULAR BLOCK NONSPECIFIC ST & T-WAVE ABNORMALITY BASELINE ARTIFACT LIMITS INTERPRETATION Electronically Signed On 12-07-2016 18:22:48 EDT by Yudy Roblero
== END 2016-12-06 18:36 | disposition home or self-care (01) ==
LOC: M ED 15:39
DX: E06.9 Thyroiditis, unspecified (principal); N18.9 Chronic kidney disease, unspecified; R06.02 Shortness of breath; R60.9 Edema, unspecified; I50.9 Heart failure, unspecified; E11.9 Type 2 diabetes mellitus without complications; I10 Essential (primary) hypertension; G47.30 Sleep apnea, unspecified; F17.200 Nicotine dependence, unspecified, uncomplicated; I51.7 Cardiomegaly; M25.711 Osteophyte, right shoulder; Z79.82 Long term (current) use of aspirin; Z79.899 Other long term (current) drug therapy; Z79.4 Long term (current) use of insulin; Z91.89 Other specified personal risk factors, not elsewhere classified
CPT/HCPCS: 36415; 71010; 73020; 80048; 83880; 84432; 84439; 84443; 85025; 86800; 93005; 93041; 93970; 94640; 94760; 96374; 99284; J2930

== ENCOUNTER → 2016-12-06 | Outpatient (CLI) | payer OTHER, MEDICAID ==
[~2016-12-06] MED LIST changes: +ASPI325T24 PO; -ASPI32ECTA PO; +AVEL1TAB3 PO; +ESOM1CAP5; -FURO1TAB15 PO; +FURO80TA2 PO; +LEVO500T3 PO; -LEVO500T32 PO; -METF850T PO; +METF850T4 PO; +VOLT1GEL15 TD; -VOLT1GEL24 TD
[2016-12-06 17:44] LABS: FREE T4 1.03 NG/DL (0.76-1.46)
== END ==
LOC: M LAB 15:16
PROVIDERS: ATTEND Otolaryngology
DX: E06.9 Thyroiditis, unspecified (principal)

== ENCOUNTER 2017-01-02 13:43 | Emergency (ER) | payer OTHER ==
[~2017-01-02 13:43] MED LIST changes: +ESOM1CAP5
[2017-01-02 13:54] VITALS: BP 138/66
== END 2017-01-02 14:47 | disposition home or self-care (01) ==
LOC: M ED 13:43 → EDBD 13:43 → M ED 14:47
DX: S69.91XA Unspecified injury of right wrist, hand and finger(s), initial encounter (principal); S59.911A Unspecified injury of right forearm, initial encounter; W22.8XXA Striking against or struck by other objects, initial encounter; Y92.512 Supermarket, store or market as the place of occurrence of the external cause; Y93.9 Activity, unspecified; Y99.9 Unspecified external cause status; I50.9 Heart failure, unspecified; I10 Essential (primary) hypertension; E11.9 Type 2 diabetes mellitus without complications; G89.29 Other chronic pain; F17.200 Nicotine dependence, unspecified, uncomplicated; Z79.82 Long term (current) use of aspirin; Z79.899 Other long term (current) drug therapy; Z79.4 Long term (current) use of insulin; Z79.52 Long term (current) use of systemic steroids; Z91.89 Other specified personal risk factors, not elsewhere classified

== ENCOUNTER → 2017-01-03 | Outpatient (CLI) | payer OTHER, MEDICAID ==
[~2017-01-03] MED LIST changes: +AVEL1TAB3 PO; +BUPIVACAINE HCL 0.25% 10 ML VIAL As Ordered ONE; +BUPIVACAINE HCL 0.25% 30 ML VIAL As Ordered ONE; +diazePAM 5 MG TAB As Ordered ONE
--- NOTE | 2017-01-09 23:24 | ECWPNPC ---
PATIENT NAME: ROSALVA MOSES : 1945 GENDER: FEMALE VISIT DATE: 01/03/2017 DISCHARGE DATE: 01/03/17 161 VISIT LOCKED DATE TIME: PHYSICIAN: AAKASH FREEMAN RESOURCE: AAKASH FREEMAN REASON FOR APPOINTMENT 1. BILATERAL LOWER BACK AREA HISTORY OF PRESENT ILLNESS HISTORY OF PRESENT ILLNESS: PAIN THE PATIENT DESCRIBES THE PAIN... FALL RISK SCREENING: SCREENING :NO FALLS IN THE PAST YEAR CURRENT MEDICATIONS TAKING ZOLPIDEM 5 MG TABLET 1 TAB(S) ORAL QHS, NOTES: 01-02-172099 TAKING ESOMEPRAZOLE MAGNESIUM 40 MG CAPSULE DELAYED RELEASE 1 CAPSULE ORALLY ONCE A DAY, NOTES: 01-03-17799 TAKING PREDNISONE 10 MG 1 TAB ORAL DAILY, NOTES: 01-03-17799 TAKING FUROSEMIDE 40 MG _ 1 TABLET ORALLY 2 TABLETS IN THE AM AND 1 IN PM, NOTES: 01-03-17799 TAKING CALCITRIOL 0.25 MCG CAPSULE 1 CAPSULE ORALLY TUE, TUE, TUE, NOTES: 01-03-17799 TAKING AMLODIPINE BESYLATE 10 MG TABLET 1 TABLET ORALLY ONCE A DAY, NOTES: 01-03-17799 TAKING ASPIRIN 325 MG TABLET 1 TABLET ORALLY ONCE A DAY, NOTES: 01-03-172099 TAKING CYMBALTA 30 MG CAPSULE DELAYED RELEASE PARTICLES 1 CAPSULE ORALLY TWICE A DAY, NOTES: 01-03-17799 TAKING HUMULIN N 100 UNIT/ML SUSPENSION 50 UNITS SUBCUTANEOUS BID, NOTES: 01-03-17799 TAKING METOPROLOL TARTRATE 25 MG TABLET 1 TABLET ORALLY TWICE A DAY, NOTES: 01-03-17799 TAKING NITROGLYCERIN 0.4 MG TABLET SUBLINGUAL SUBLINGUAL DIRECTED, NOTES: NOT LATELY TAKING ZANTAC 150 MG TABLET 1 TABLET ORALLY DAILY, NOTES: 01-03-17799 TAKING CRESTOR 20 MG TABLET 1 TABLET ORALLY ONCE A DAY AT BEDTIME, NOTES: 01-03-17799 TAKING ADVAIR DISKUS 250-50 MCG/DOSE AEROSOL POWDER BREATH ACTIVATED 1 PUFF INHALATION TWICE A DAY, NOTES: NOT LATELY TAKING MAGNESIUM 500 MG TABLET 1 TABLET WITH A MEAL ORALLY BID, NOTES: 01-03-17699 TAKING SPIRONOLACTONE 25 MG TABLET 1 TABLET ORALLY EVERY OTHER DAY, NOTES: 01-03-17799 TAKING PROAIR HFA 108 (90 BASE) MCG/ACT AEROSOL SOLUTION 1 PUFF INHALATION EVERY 4-6 HOURS NEEDED, NOTES: 01-03-17 0800 TAKING MUCINEX 600 MG TABLET EXTENDED RELEASE 12 HOUR 1 TABLET NEEDED ORALLY EVERY 12 HRS, NOTES: NOT LATELY TAKING LYRICA 200 MG CAPSULE 1 CAPSULE ORALLY BID MDD2, NOTES: 01-03-17 0800 TAKING HYDROCODONE-ACETAMINOPHEN 10-325 MG TABLET 1 TABLET NEEDED ORALLY Q6H PRN MDD4, NOTES: 01-03 0800 NOT-TAKING NORCO 10-325 MG TABLET 1 ORALLY Q6H PRN MDD4 NOT-TAKING SPIRIVA HANDIHALER 18 MCG CAPSULE 1 CAPSULE INHALATION ONCE A DAY NEEDED NOT-TAKING FERROUS SULFATE 325 (65 FE) MG TABLET 1 TABLET ORALLY ONCE A DAY NOT-TAKING VITAMIN D (ERGOCALCIFEROL) 46416 UNIT CAPSULE 1 CAPSULE ORALLY ONCE A DAY NOT-TAKING DOXYCYCLINE HYCLATE 100 MG CAPSULE 1 CAPSULE ORALLY TWICE A DAY NOT-TAKING NEXIUM 40 MG 1 CAPSULE ORALLY ONCE A DAY NOT-TAKING LASIX 40 MG TABLET 2 TABLET ORALLY DAILY NOT-TAKING METFORMIN HCL 850 MG TABLET 1 TABLET WITH A MEAL ORALLY THREE TIMES A DAY NOT-TAKING DIOVAN 320 MG TABLET 1 TABLET ORALLY ONCE A DAY NOT-TAKING LYRICA 200 MG CAPSULE 1 CAPSULE ORALLY ONCE DAILY NOT-TAKING VICTOZA 1.8 MG SOLUTION PEN-INJECTOR SUBCUTANEOUS ONCE A DAY AT BEDTIME MEDICATION LIST REVIEWED AND RECONCILED WITH THE PATIENT PAST MEDICAL HISTORY CONGESTIVE HEART FAILURE HYPERTENSION 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 SURGICAL HISTORY ANTERIOR POSTERIOR FUSION BACK SURGERY 12/28 LEFT FOOT NERVE ENTRAPMENT BACK SURGERY 1999 BACK SURGERY TOTAL HYSTERECTOMY CHOLECYSTECTOMY RIGHT SHOULDER SURGERY LEFT LOWER LEG VENOUS STRIPPING REVIEW OF SYSTEMS REVIEWED BY: PROVIDER: . CONSTITUTIONAL: ANY CHANGE IN YOUR MEDICAL CONDITION? NO . CHILLS NO . FEVER NO . INFECTION: DO YOU HAVE NEW INFECTIONS? NO . DO YOU HAVE HISTORY OF MRSA? NO . MUSCULOSKELETAL: ANY NEW PATTERNS OF PAIN OR NUMBNESS? NO . GASTROENTEROLOGY: ANY NEW CHANGE IN BOWEL CONTROL? NO . GENITOURINARY: ANY NEW CHANGE IN BLADDER CONTROL? NO . IS THERE A CHANCE YOU COULD BE ? NO . HEMATOLOGY/LYMPH: DO YOU TAKE ANY BLOOD THINNERS? (FOR EXAMPLE- COUMADIN, PLAVIX, AGGRENOX, PLATEL, PRADAXA, OR XARELTO) NO . WHEN WAS YOUR LAST DOSE? DATE: TIME: . NEUROLOGY: HAVE YOU FALLEN IN THE PAST 6 MONTHS? [facility]CO[facility] ACCIDENT AT [facility] YES, YESTERDAY . ANY NEW EXTREMITY NUMBNESS OR WEAKNESS? NO . CARDIOLOGY: DO YOU HAVE A PACEMAKER OR DEFIBRILLATOR? NO . RESPIRATORY: HAVE YOU BEEN SICK IN THE PAST WEEK? NO . FEVER NO . FLU LIKE SYMPTOMS? NO . COUGH NO . INTEGUMENTARY: DO YOU HAVE ANY RASHES OR OPEN SORES? NO . ALLERGIC/IMMUNO: ARE YOU ALLERGIC TO SHELLFISH OR IV DYE? NO . ANY NEW ALLERGIES? NO . PSYCHIATRIC: DO YOU HAVE THOUGHTS OF HURTING YOURSELF OR SOMEONE ELSE? NO . ARE YOU ABUSED, NEGLECTED, OR IN AN UNSAFE ENVIRONMENT? NO . ENDOCRINOLOGY: ARE YOU DIABETIC? NO . OTHER: DO YOU NEED ANY PRESCRIPTIONS? NO . IF YES, PLEASE LIST: ____ . ANY NEW PROBLEMS WITH YOUR MEDICATIONS? NO . WHEN DID YOU LAST EAT? ____ . WHEN DID YOU LAST DRINK? ____ . WHAT DID YOU LAST DRINK? ____ . NAME OF PERSON DRIVING YOU HOME? ____ . DO YOU HAVE ANY OTHER QUESTIONS OR CONCERNS NO . VITAL SIGNS WT 185 LBS, HT 63 IN, BMI 32.77 INDEX, BP 165/77 MM HG, HR 61 /MIN, RR 18 /MIN, TEMP 98.5 F, OXYGEN SAT % 93%, NA INITIALS TR 1449, REVIEWED BY: KG. ASSESSMENTS MYALGIA - M79.1 (PRIMARY) PROCEDURES PN TRIGGER POINT INJECTION NO STEROIDS PRE PROCEDURE DIAGNOSIS 1. MYALGIA 2. PAIN AT BILATERAL LOWER BACK AREA POST PROCEDURE DIAGNOSIS 1. MYALGIA 2. PAIN AT BILATERAL LOWER BACK AREA PROCEDURE TRIGGER POINT INJECTION AT BILATERAL LOWER BACK AREA SURGEON DR. AAKASH FREEMAN ALLERGIST/IMMUNOLOGIST PHYSICIAN NONE ANESTHESIA LOCAL PRE PROCEDURE NOTE 71 YEAR-OLD PATIENT WITH HISTORY OF CHRONIC PAIN AT RIGHT AND LEFT LOWER BACK AREA. I EVALUATED THE PATIENT AND REVIEWED THE CHART. THERE IS EVIDENCE OF BANDS OF TISSUE WITH RESTRICTION OF MOVEMENT AND PRESENCE OF TRIGGER POINT AT THE AFFECTED AREA. I WENT OVER THE RISKS, ALTERNATIVES, AND BENEFITS ASSOCIATED WITH THIS PROCEDURE. THE PATIENT WOULD LIKE TO PROCEED AND GAVE CONSENT TO PERFORM THE PROCEDURE. THE PATIENT DENIES UNEXPLAINABLE WEIGHT LOSS, FEVER, CHILLS, OR NEW CHANGES IN URINARY OR BOWEL CONTROL. DESCRIPTION OF PROCEDURE THE PATIENT WAS BROUGHT TO THE PROCEDURE ROOM AND PLACED IN THE SITTING PRONE POSITION. THE AREA WAS CLEANED WITH ALCOHOL. THE PROCEDURE WAS DONE USING ASEPTIC STERILE TECHNIQUES. I CHECKED LATERALITY AND THE LEVEL WHERE THE PROCEDURE WAS GOING TO BE PERFORMED WITH THE PATIENT AND THE SUPPORTING STAFF AT THE MOMENT OF THE TIME OUT IN THE PROCEDURE ROOM. USING A 25-GAUGE NEEDLE, TRIGGER POINTS WERE INJECTED AT RIGHT AND LEFT LOWER BACK AREA WITH A TOTAL OF 40 ML OF BUPIVACAINE 0.25%. AGREED WITH THE PATIENT THE PROCEDURE WAS DONE WITHOUT STEROIDS. THERE WAS NO EVIDENCE OF BLOOD, PARESTHESIA OR CEREBROSPINAL FLUID DURING THE PROCEDURE. THE PATIENT WAS SENT TO THE RECOVERY ROOM. THE PATIENT WAS MOVING THE EXTREMITIES AND DOING WELL. THERE WAS NO COMPLICATION DURING THE PROCEDURE. POST PROCEDURE NOTE THE PATIENT WILL BE SEEN IN A FOLLOW UP IN THE NEXT FEW WEEKS. INSTRUCTIONS WERE GIVEN, QUESTIONS WERE ANSWERED, AND THE PATIENT EXPRESSED UNDERSTANDING AND AGREED WITH THE PLAN. I, TAMELA FITCH, DOCUMENTED THE ABOVE INFORMATION ACTING A SCRIBE FOR DR. FREEMAN. I, DR. FREEMAN, HAVE REVIEWED THE ABOVE DOCUMENT, SCRIBED BY TAMELA FITCH, AND I VERIFY THAT IT IS ACCURATE PROCEDURE CODES 87288 INJ TRIGGER POINT / MUSCL DISPOSITION & COMMUNICATION FOLLOW UP 3 WEEKS ELECTRONICALLY SIGNED BY AAKASH FREEMAN MD ON 01/09/2017 AT 07:49 AM EDT DISCLAIMER : THIS IS A VISIT SUMMARY EXTRACTED FROM THE [employer] CHART. IT IS NOT A COPY OF THE [employer] PROGRESS NOTE. MTDD
== END ==
LOC: M PAIN 14:40
PROVIDERS: ATTEND Anesthesiology
DX: G89.29 Other chronic pain (principal); M54.5 Low back pain; M79.1 Myalgia; I10 Essential (primary) hypertension; E78.00 Pure hypercholesterolemia, unspecified; E11.9 Type 2 diabetes mellitus without complications; M19.90 Unspecified osteoarthritis, unspecified site; Z79.52 Long term (current) use of systemic steroids; Z79.82 Long term (current) use of aspirin; Z79.4 Long term (current) use of insulin; Z79.891 Long term (current) use of opiate analgesic; Z79.899 Other long term (current) drug therapy

== ENCOUNTER 2017-01-11 12:51 | Emergency (ER) | payer OTHER, MEDICAID ==
[~2017-01-11] VITALS: Ht 157.5 cm; Wt 83.9 kg
[~2017-01-11 12:51] MED LIST changes: -AVEL1TAB3 PO; -BUPIVACAINE HCL 0.25% 10 ML VIAL As Ordered ONE; -BUPIVACAINE HCL 0.25% 30 ML VIAL As Ordered ONE; -diazePAM 5 MG TAB As Ordered ONE
[2017-01-11 12:52] VITALS: BP 149/70
== END 2017-01-11 14:40 | disposition home or self-care (01) ==
LOC: M ED 12:51
DX: Z48.00 Encounter for change or removal of nonsurgical wound dressing (principal); Z51.89 Encounter for other specified aftercare; S51.801D Unspecified open wound of right forearm, subsequent encounter; Y92.9 Unspecified place or not applicable; Y93.9 Activity, unspecified; Y99.9 Unspecified external cause status; X58.XXXD Exposure to other specified factors, subsequent encounter; F17.200 Nicotine dependence, unspecified, uncomplicated; Z86.73 Personal history of transient ischemic attack (TIA), and cerebral infarction without residual deficits; I50.9 Heart failure, unspecified; E78.00 Pure hypercholesterolemia, unspecified; I10 Essential (primary) hypertension; J44.9 Chronic obstructive pulmonary disease, unspecified; G47.30 Sleep apnea, unspecified; Z87.01 Personal history of pneumonia (recurrent); H54.42 Blindness, left eye, normal vision right eye; K21.9 Gastro-esophageal reflux disease without esophagitis; Z87.440 Personal history of urinary (tract) infections; Z85.3 Personal history of malignant neoplasm of breast; E11.9 Type 2 diabetes mellitus without complications; M54.9 Dorsalgia, unspecified; F32.9 Major depressive disorder, single episode, unspecified; Z79.82 Long term (current) use of aspirin; Z79.4 Long term (current) use of insulin; Z79.899 Other long term (current) drug therapy; Z91.89 Other specified personal risk factors, not elsewhere classified

== ENCOUNTER 2017-01-31 12:36 | Emergency (ER) | payer OTHER, MEDICAID ==
[~2017-01-31] VITALS: Ht 157.5 cm; Wt 84.0 kg
--- NOTE | 2017-01-31 14:20 | REP ---
Clinical: Cough. Technique: PA and lateral. Comparison: 12/06/2016. Findings: Stable cardiomegaly and diffuse interstitial changes are appreciated. Superimposed interstitial edema as well as basilar atelectasis cannot be excluded. No focal consolidation, effusion, or pneumothorax. Skeletal structures intact. Impression: Stable cardiomegaly and interstitial changes. Cannot exclude interstitial edema or scattered atelectasis. Signed by Jose Briggs MD 01/31/2017 02:12 P
[2017-01-31] MEDS ORDERED: AVEL1TAB3 PO (14:26)
[2017-01-31] MEDS ORDERED: MOXIFLOXACIN 400 MG TAB PO ONE (14:30)
[2017-01-31 14:43] VITALS: BP 151/69
[2017-01-31] MEDS ORDERED: FLUCONAZOLE 100 MG TAB PO ONE (15:00)
== END 2017-01-31 14:58 | disposition home or self-care (01) ==
LOC: M ED 12:36
DX: J20.9 Acute bronchitis, unspecified (principal); I51.7 Cardiomegaly; I50.9 Heart failure, unspecified; E11.9 Type 2 diabetes mellitus without complications; I10 Essential (primary) hypertension; Z87.440 Personal history of urinary (tract) infections; Z87.01 Personal history of pneumonia (recurrent); F17.200 Nicotine dependence, unspecified, uncomplicated; Z79.82 Long term (current) use of aspirin; Z79.4 Long term (current) use of insulin; Z79.899 Other long term (current) drug therapy; Z91.89 Other specified personal risk factors, not elsewhere classified

== ENCOUNTER → 2017-02-22 | Outpatient (CLI) | payer OTHER, MEDICAID ==
[~2017-02-22] MED LIST changes: +AVEL1TAB3 PO
--- NOTE | 2017-02-22 16:37 | REPMRS ---
Patient History The patient states she has not had a clinical breast exam in over a year. No known family history of cancer. Benign radio exam breast specimen, December 26, 2013. Benign localization of breast nodule of the right breast, December 26, 2013. Digital Mammo Screening Bilat: February 22, 2017 - Exam #: [id number] Bilateral CC and MLO view(s) were taken. Technologist: Rosio Sevilla Technologist Prior study comparison: February 13, 2016, bilateral digital mammo screening bilat performed at [facility], [place]. February 04, 2015, digital mammo diagnostic bilateral performed at [facility] [place]. FINDINGS: The breast tissue is extremely dense which could obscure a lesion on mammography. There is no evidence of cancer on this mammogram. No significant changes when compared with prior studies. ASSESSMENT: BI-RADS/ACR category 2 mammogram. Benign finding(s). Recommendation Routine screening mammogram of both breasts in 1 year (for women over age 40). This mammogram was interpreted with the aid of an FDA-approved computer-aided dectection system. Electronically Signed By: Dominic Louise MD 02/22/17 7030
== END ==
LOC: M RAD 14:56
PROVIDERS: ATTEND Internal Medicine
DX: Z12.31 Encounter for screening mammogram for malignant neoplasm of breast (principal)

== ENCOUNTER → 2017-02-22 | Outpatient (CLI) | payer OTHER, MEDICAID ==
--- NOTE | 2017-02-23 04:32 | REP ---
Clinical: Follow up abnormal findings. Comparison: 03/18/2016. Findings: Chronic progressive moderate fibrosis and interstitial changes/scarring are again identified and appear somewhat increased when compared to prior examinations. Current examination suggests cardiomegaly with chronic pulmonary vascular congestion including cephalization and prominent pulmonary vasculature. Significant atherosclerotic changes to the thoracic aorta and coronary arteries remains relatively stable. No obvious acute consolidation, nodule or mass lesion identified. No pleural effusion or pneumothorax. The tracheobronchial tree is patent. Mediastinal adenopathy including a precarinal lymph nodes measuring up to 19 mm are unchanged as well as a left superior mediastinal soft tissue mass measuring approximately 4.7 x 2.3 x 2.4 cm (images 10 - 23). Surrounding musculoskeletal structures demonstrate age-related degenerative changes without focal osseous abnormality. Limited evaluation of the upper abdomen demonstrates normal bilateral adrenal glands. Impression: 1. Moderate chronic, progressive fibrosis and interstitial changes along with stable mediastinal adenopathy and stable left superior mediastinal soft tissue mass. 2. Chronic cardiomegaly and chronic pulmonary vascular congestion. 3. No acute, new mediastinal or pleuroparenchymal process identified. Signed by Jose Briggs MD 02/23/2017 04:23 A
== END ==
LOC: M RAD 14:53
PROVIDERS: ATTEND Internal Medicine Pulmonary Disease
DX: R91.8 Other nonspecific abnormal finding of lung field (principal); Z12.31 Encounter for screening mammogram for malignant neoplasm of breast
CPT/HCPCS: 71250; G0202

== ENCOUNTER → 2017-03-01 | Outpatient (CLI) | payer OTHER, MEDICAID ==
--- NOTE | 2017-03-22 01:58 | ECWPNPC ---
PATIENT NAME: ROSALVA MOSES : 1945 GENDER: FEMALE VISIT DATE: 03/01/2017 DISCHARGE DATE: 03/01/17 1541 VISIT LOCKED DATE TIME: PHYSICIAN: NOE VALLEJO RESOURCE: NOE VALLEJO REASON FOR APPOINTMENT 1. MEDS HISTORY OF PRESENT ILLNESS HISTORY OF PRESENT ILLNESS: 70 Y/O FEMALE WITH HX OF CHRONIC LBP AND BILAT. 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 CURRENTLY USING LYRICA 200MG BID AND HYDROCODONE 10/325 UP TO 4X DAY PRN FOR SEVERE PAIN WITH GOOD EFFECT. REPORTS IMPROVED ACTIVITY TOLERANCE.HX OF MULTIPLE COMORBIDITIES AND HOSPITALIZATIONS. PAIN THE PATIENT DESCRIBES THE PAIN... THE PATIENT DESCRIBES THE PAIN... THE PATIENT DESCRIBES THE PAIN... THE PATIENT DESCRIBES THE PAIN... THE PATIENT DESCRIBES THE PAIN... THE PATIENT DESCRIBES THE PAIN... THE PATIENT DESCRIBES THE PAIN... FALL RISK SCREENING: SCREENING :NO FALLS IN THE PAST YEAR CURRENT MEDICATIONS TAKING NORVASC 10 MG TABLET 1 TABLET ORALLY ONCE A DAY TAKING RANITIDINE HCL 150 MG CAPSULE 1 CAPSULE AT BEDTIME ORALLY ONCE A DAY TAKING NYSTATIN 581699 UNIT/GM CREAM 1 APPLICATION TO AFFECTED AREA EXTERNALLY TWICE A DAY TAKING ZOLPIDEM 5 MG TABLET 1 TAB(S) ORAL QHS TAKING ESOMEPRAZOLE MAGNESIUM 40 MG CAPSULE DELAYED RELEASE 1 CAPSULE ORALLY ONCE A DAY TAKING PREDNISONE 10 MG 1 TAB ORAL DAILY TAKING FUROSEMIDE 40 MG _ 1 TABLET ORALLY 2 TABLETS IN THE AM AND 1 IN PM TAKING CALCITRIOL 0.25 MCG CAPSULE 1 CAPSULE ORALLY TUE, TUE, TUE TAKING AMLODIPINE BESYLATE 10 MG TABLET 1 TABLET ORALLY ONCE A DAY TAKING ASPIRIN 325 MG TABLET 1 TABLET ORALLY ONCE A DAY TAKING CYMBALTA 30 MG CAPSULE DELAYED RELEASE PARTICLES 1 CAPSULE ORALLY TWICE A DAY TAKING HUMULIN N 100 UNIT/ML SUSPENSION 60 UNITS SUBCUTANEOUS BID TAKING METOPROLOL TARTRATE 25 MG TABLET 1 TABLET ORALLY TWICE A DAY TAKING NITROGLYCERIN 0.4 MG TABLET SUBLINGUAL SUBLINGUAL DIRECTED TAKING ZANTAC 150 MG TABLET 1 TABLET ORALLY DAILY TAKING CRESTOR 20 MG TABLET 1 TABLET ORALLY ONCE A DAY AT BEDTIME TAKING ADVAIR DISKUS 250-50 MCG/DOSE AEROSOL POWDER BREATH ACTIVATED 1 PUFF INHALATION TWICE A DAY TAKING MAGNESIUM 500 MG TABLET 1 TABLET WITH A MEAL ORALLY BID TAKING SPIRONOLACTONE 25 MG TABLET 1 TABLET ORALLY EVERY OTHER DAY TAKING PROAIR HFA 108 (90 BASE) MCG/ACT AEROSOL SOLUTION 1 PUFF INHALATION EVERY 4-6 HOURS NEEDED TAKING LYRICA 200 MG CAPSULE 1 CAPSULE ORALLY BID MDD2 TAKING HYDROCODONE-ACETAMINOPHEN 10-325 MG TABLET 1 TABLET NEEDED ORALLY Q6H PRN MDD4 TAKING SPIRIVA HANDIHALER 18 MCG CAPSULE 1 CAPSULE INHALATION ONCE A DAY NEEDED TAKING LASIX 40 MG TABLET 2 TABLET ORALLY DAILY TAKING METFORMIN HCL 850 MG TABLET 1 TABLET WITH A MEAL ORALLY THREE TIMES A DAY NOT-TAKING LYRICA 200 MG CAPSULE 1 CAPSULE ORALLY ONCE DAILY NOT-TAKING MUCINEX 600 MG TABLET EXTENDED RELEASE 12 HOUR 1 TABLET NEEDED ORALLY EVERY 12 HRS, NOTES: NOT LATELY NOT-TAKING NORCO 10-325 MG TABLET 1 ORALLY Q6H PRN MDD4 NOT-TAKING FERROUS SULFATE 325 (65 FE) MG TABLET 1 TABLET ORALLY ONCE A DAY NOT-TAKING VITAMIN D (ERGOCALCIFEROL) 06175 UNIT CAPSULE 1 CAPSULE ORALLY ONCE A DAY NOT-TAKING DOXYCYCLINE HYCLATE 100 MG CAPSULE 1 CAPSULE ORALLY TWICE A DAY NOT-TAKING NEXIUM 40 MG 1 CAPSULE ORALLY ONCE A DAY NOT-TAKING DIOVAN 320 MG TABLET 1 TABLET ORALLY ONCE A DAY NOT-TAKING VICTOZA 1.8 MG SOLUTION PEN-INJECTOR SUBCUTANEOUS ONCE A DAY AT BEDTIME MEDICATION LIST REVIEWED AND RECONCILED WITH THE PATIENT PAST MEDICAL HISTORY CONGESTIVE HEART FAILURE HYPERTENSION 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 SURGICAL HISTORY ANTERIOR POSTERIOR FUSION BACK SURGERY 12/28 LEFT FOOT NERVE ENTRAPMENT BACK SURGERY 1999 BACK SURGERY TOTAL HYSTERECTOMY CHOLECYSTECTOMY RIGHT SHOULDER SURGERY LEFT LOWER LEG VENOUS STRIPPING REVIEW OF SYSTEMS REVIEWED BY: PROVIDER: NOE STINSON . CONSTITUTIONAL: ANY CHANGE IN YOUR MEDICAL CONDITION? YES, BILATERAL CARPAL TUNNEL . CHILLS NO . FEVER NO . INFECTION: DO YOU HAVE NEW INFECTIONS? NO . DO YOU HAVE HISTORY OF MRSA? NO . MUSCULOSKELETAL: ANY NEW PATTERNS OF PAIN OR NUMBNESS? NO . GASTROENTEROLOGY: ANY NEW CHANGE IN BOWEL CONTROL? NO . GENITOURINARY: ANY NEW CHANGE IN BLADDER CONTROL? NO . IS THERE A CHANCE YOU COULD BE ? NO . HEMATOLOGY/LYMPH: DO YOU TAKE ANY BLOOD THINNERS? (FOR EXAMPLE- COUMADIN, PLAVIX, AGGRENOX, PLATEL, PRADAXA, OR XARELTO) NO . WHEN WAS YOUR LAST DOSE? DATE: TIME: . NEUROLOGY: HAVE YOU FALLEN IN THE PAST 6 MONTHS? YES, TWO MONTHS AGO . ANY NEW EXTREMITY NUMBNESS OR WEAKNESS? NO . CARDIOLOGY: DO YOU HAVE A PACEMAKER OR DEFIBRILLATOR? NO . RESPIRATORY: HAVE YOU BEEN SICK IN THE PAST WEEK? NO . FEVER NO . FLU LIKE SYMPTOMS? NO . COUGH NO . INTEGUMENTARY: DO YOU HAVE ANY RASHES OR OPEN SORES? NO . ALLERGIC/IMMUNO: ARE YOU ALLERGIC TO SHELLFISH OR IV DYE? NO . ANY NEW ALLERGIES? NO . PSYCHIATRIC: DO YOU HAVE THOUGHTS OF HURTING YOURSELF OR SOMEONE ELSE? NO . ARE YOU ABUSED, NEGLECTED, OR IN AN UNSAFE ENVIRONMENT? NO . ENDOCRINOLOGY: ARE YOU DIABETIC? YES . OTHER: DO YOU NEED ANY PRESCRIPTIONS? YES . IF YES, PLEASE LIST: HYDROCODONE, LYRICA . ANY NEW PROBLEMS WITH YOUR MEDICATIONS? NO . WHEN DID YOU LAST EAT? ____ . WHEN DID YOU LAST DRINK? ____ . WHAT DID YOU LAST DRINK? ____ . NAME OF PERSON DRIVING YOU HOME? ____ . DO YOU HAVE ANY OTHER QUESTIONS OR CONCERNS NO . VITAL SIGNS WT 181 LBS, HT 63 IN, BMI 32.06 INDEX, BP 150/74 MM HG, HR 58 /MIN, RR 18 /MIN, TEMP 99.1 F, OXYGEN SAT % 93%, NA INITIALS SC 14:55, REVIEWED BY: NL. EXAMINATION GENERAL EXAMINATION: LUNGS:LUNG SOUNDS ARE CLEAR. HEART:HEART RATE REGULAR. MUSCULOSKELETAL:*, MUSCLE STRENGTH TESTING 3/5 BILAT.PALPATION: POSITIVE FOR PAIN OVER L/S SPINE. POSITIVE FOR PAIN OVER L/S PARSPINALS., TRIGGER POINTS:NOTED RIGHT LUMBAR PARASPINAL AND PIRIFORMIS.LOW THORACI ,UPPER LUMBAR INCISION WITH 2CM X 3CM CIRCULAR RAISED AREA.NON TENDER/NO REDDNESS. ASSESSMENTS POST LAMINECTOMY SYNDROME - M96.1 (PRIMARY) CHRONIC PRESCRIPTION OPIATE USE - Z79.891 TREATMENT POST LAMINECTOMY SYNDROME CONTINUE LYRICA CAPSULE, 200 MG, 1 CAPSULE, ORALLY, BID MDD2 REFILL HYDROCODONE-ACETAMINOPHEN TABLET, 10-325 MG, 1 TABLET NEEDED, ORALLY, Q6H PRN MDD4, 30 DAY(S), 120, REFILLS 0 NOTES: ISTOP REGISTRY REVIEWED [id number] RISKS AND BENEFITS OF NARCOTIC/OPIOD MEDICATIONS WERE REVIEWED WITH PATIENT - THIS INCLUDES BUT IS NOT LIMITED TO RISK OF DEPENDANCE/DEVELOPMENT OF ADDICTION, MOOD DISTURBANCE AND DEPRESSION, OSTEOPOROSIS, HORMONAL AND LABIDAL CHANGES, RESPIRATORY DEPRESSION AND . PATIENT IS ADVISED NOT TO DRIVE WHILE ON THESE MEDICATIONS, AND DEMNOSTRATES COMPLLIANCE. BRINGS IN MEDICATIONS WHICH IS APPROPRIATE FOR WHAT WAS DISPENSED. RECENT URINE TOXICOLOGY REVIEWED. NO UNAUTHORIZED MEDICATIONS. NO ILLICIT SUBSTANCES AND PRESCRIBED MEDICATIONS WERE PRESENT.URINE TOX TODAY. [facility]:PAINFUL THORACIC/LUMBAR INCISIONAL LUMP S/P LUMBAR SURGERY X4,LAST ONE APROX. 5 YEARS AGO PROCEDURE CODES FA211 ESTABILISHED PATIENT [facility] FACILITY CHARGE G8730 PAIN ASSESS POS TOOL F/U PLAN DOC G8427 DOC MEDS VERIFIED W/PT OR RE DISPOSITION & COMMUNICATION FOLLOW UP 2 MONTHS ELECTRONICALLY SIGNED BY MILAD ARVIZU ON 03/21/2017 AT 07:18 PM EDT DISCLAIMER : THIS IS A VISIT SUMMARY EXTRACTED FROM THE [employer] CHART. IT IS NOT A COPY OF THE [employer] PROGRESS NOTE. ALINE
== END ==
LOC: M PAIN 14:30
PROVIDERS: ATTEND Nurse Practitioner Family
DX: M96.1 Postlaminectomy syndrome, not elsewhere classified (principal); I10 Essential (primary) hypertension; E78.00 Pure hypercholesterolemia, unspecified; E11.9 Type 2 diabetes mellitus without complications; Z79.52 Long term (current) use of systemic steroids; Z79.82 Long term (current) use of aspirin; Z79.4 Long term (current) use of insulin; Z79.891 Long term (current) use of opiate analgesic; Z79.899 Other long term (current) drug therapy

== ENCOUNTER → 2017-03-09 | Outpatient (CLI) | payer OTHER, MEDICAID ==
--- NOTE | 2017-03-10 14:20 | REP ---
Clinical: Chronic renal disease stage III. Technique: Real time javed scale and color evaluation using curved array transducer. Findings: The bilateral kidneys are normal in contour, size, echogenicity, and reniform shape without hydronephrosis, nephrolithiasis, mass lesion or perinephric fluid collection. Right kidney measures 11.6 x 7.0 x 5.4 cm with 9 mm lower pole simple cyst and renovascular calcifications consistent with chronic medical renal disease. Left kidney measures 11.1 x 4.1 x 4.7 cm with column of Kush seen as well as renovascular calcifications consistent with chronic medical renal disease. Bladder is grossly unremarkable. Impression: 1. 9 mm simple right renal cyst. 2. Bilateral renovascular calcifications consistent with chronic medical renal disease. Signed by Jose Briggs MD 03/10/2017 02:11 P
== END ==
LOC: M RAD 12:46
PROVIDERS: ATTEND Internal Medicine Nephrology
DX: N18.3 Chronic kidney disease, stage 3 (moderate) (principal); E11.22 Type 2 diabetes mellitus with diabetic chronic kidney disease; I15.0 Renovascular hypertension; N28.1 Cyst of kidney, acquired

== ENCOUNTER → 2017-03-21 | Outpatient (CLI) | payer OTHER, MEDICAID ==
--- NOTE | 2017-03-21 14:01 | REP ---
MRI CERVICAL SPINE WITHOUT CONTRAST: HISTORY: Degenerative disc disease. Neck pain. No known injury. No comparison cervical spine MRI study. Comparison CT study of the cervical spine is from January 15, 2015. TECHNIQUE: Sagittal and axial T1 and T2-weighted scans are acquired in the usual fashion with and without fat saturation. Sequences include spin echo, turbo spin echo, and STIR imaging sequences. MRI FINDINGS: Cervical vertebral body heights are preserved and alignment is normal. Cortical and medullary bone signal intensity are normal. Craniocervical junction is unremarkable. Cervical cord is normal in coarse, caliber and signal intensity on T1 and T2-weighted scans. Axial and sagittal images at the C2-3 show no significant abnormality. The C3-4 and C4-5 disc levels are unremarkable as well. At C5-6 there is mild anterior discogenic spurring. Minimal uncovertebral spurring is noted on the right C5-6. No significant neural foraminal encroachment. No central canal stenosis. At C6-7 there is minimal central disc bulging. No other finding. At C7-T1 there is no abnormality. IMPRESSION: Mild degenerative spondylosis changes with central disc bulging at C6-7 and minimal right-sided uncovertebral spurring at C5-6. Anterior discogenic spurring is seen at C5-6 as well. Signed by Yaya Ludwig MD 03/21/2017 02:50 P
== END ==
LOC: M RAD 12:19
PROVIDERS: ATTEND Physician Assistant
DX: M47.892 Other spondylosis, cervical region (principal)

== ENCOUNTER 2017-04-29 13:54 | Emergency (ER) | payer OTHER, MEDICAID ==
[~2017-04-29] VITALS: Ht 157.5 cm; Wt 82.7 kg
[2017-04-29] MEDS ORDERED: SPIR25TA2 (14:12)
[2017-04-29 16:02] LABS: ABG BASE EXCESS 1.7 (-2.0-2.0); ABG PARTIAL PRESSURE CO2 35.7 mmHg (35.0-45.0); ABG STANDARD HCO3 25.9 MEQ/L (22.0-26.0); ABG TOTAL CO2 26.1 MEQ/L (23.0-31.0); ABG pH (ARTERIAL) 7.464 UNITS (7.350-7.450)
[2017-04-29] MEDS: IPRATROPIUM 0.5MG/ALBUTEROL 2.5MG INH SOL UD 3ML (DUONEB)(J7620) NEB PRN ×2 (16:05→16:06)
[2017-04-29 16:10] LABS: BASO # 0.1 10^3/uL (0.0-0.2); BASO % 0.4 % (0.0-1.0); EOS # 0.1 10^3/uL (0.0-0.50); EOS % 0.9 % (0.0-3.0); IMMATURE GRANULOCYTE % 0.5 % (0-0); LYMPH # 2.9 10^3/uL (1.5-4.5); LYMPH % 19.5 % (24.0-44.0); MEAN CORPUSCULAR HEMOGLOBIN 26.8 pg (27.0-33.0); MEAN CORPUSCULAR HGB CONC 32.5 g/dl (32.0-36.5); MEAN CORPUSCULAR VOLUME 82.4 fl (80.0-96.0); MONO # 1.3 10^3/uL (0.0-0.8); MONO % 8.6 % (0.0-5.0); NEUTROPHILS # 10.4 10^3/uL (1.8-7.7); NEUTROPHILS % 70.1 % (36.0-66.0); PLATELET COUNT, AUTOMATED 187 10^3/uL (150-450); RED CELL DISTRIBUTION WIDTH 15.9 % (11.5-14.5); WHITE BLOOD COUNT 14.8 10^3/uL (4.0-10.0)
--- NOTE | 2017-04-29 16:17 | REP ---
Clinical: Dyspnea. Cough. Comparison: 01/31/2017. Findings: Mild cardiomegaly and pulmonary vascular congestion cannot be excluded. No focal consolidation. No obvious effusion. No pneumothorax. Skeletal structures intact. Impression: Cannot exclude mild pulmonary vascular congestion. Signed by Jose Briggs MD 04/29/2017 04:08 P
[2017-04-29 16:20] LABS: INR 0.93
[2017-04-29 16:35] LABS: ANION GAP 6 MEQ/L (8-16); BLOOD UREA NITROGEN 20 MG/DL (7-18); CALCIUM LEVEL 9.2 MG/DL (8.8-10.2); CARBON DIOXIDE LEVEL 32 MEQ/L (21-32); CHLORIDE LEVEL 101 MEQ/L (98-107); GLUCOSE, FASTING 50 MG/DL (83-110); POTASSIUM SERUM 3.1 MEQ/L (3.5-5.1); SODIUM LEVEL 139 MEQ/L (136-145)
[2017-04-29 16:43] LABS: ALBUMIN 3.1 GM/DL (3.2-5.2); ALBUMIN/GLOBULIN RATIO 0.82 (1.00-1.93); BILIRUBIN,DIRECT 0.1 MG/DL (0.0-0.2); BILIRUBIN,TOTAL 0.3 MG/DL (0.2-1.0); THYROXINE (T4) 8.8 UG/DL (4.5-12.0); TOTAL PROTEIN 6.9 GM/DL (6.4-8.2)
[2017-04-29] MEDS ORDERED: methylPREDNISolone INJ 125 MG/2 ML VIAL (J2930) IV ONE (16:45)
[2017-04-29] MEDS ORDERED: CEFTRIAXONE SOD 2 GM in APPROPRIATE DILUENT 1 EA IV ONE (16:45)
[2017-04-29] MEDS ORDERED: PRED20TA PO (18:27)
[2017-04-29] MEDS ORDERED: AMOX875T2 PO (18:27)
[2017-04-29] MEDS ORDERED: cefTRIAXone SOD 1 GM VIAL (J0696) As Ordered ONE (18:29)
[2017-04-29] MEDS ORDERED: POTASSIUM CHLORIDE 10 MEQ SR TABLET PO ONE (18:30)
[2017-04-29 19:29] VITALS: BP 172/81
--- NOTE | 2017-04-30 10:48 | ECGEPIP ---
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
== END 2017-04-29 19:31 | disposition home or self-care (01) ==
LOC: M ED 13:54
DX: J20.9 Acute bronchitis, unspecified (principal); E87.6 Hypokalemia; E11.9 Type 2 diabetes mellitus without complications; K21.9 Gastro-esophageal reflux disease without esophagitis; I10 Essential (primary) hypertension; M19.90 Unspecified osteoarthritis, unspecified site; E78.00 Pure hypercholesterolemia, unspecified; Z79.82 Long term (current) use of aspirin; Z79.4 Long term (current) use of insulin; Z79.899 Other long term (current) drug therapy; Z79.52 Long term (current) use of systemic steroids; Z91.89 Other specified personal risk factors, not elsewhere classified
CPT/HCPCS: 36600; 71010; 80048; 80076; 82550; 82553; 82803; 83605; 84436; 84443; 84484; 85025; 85610; 87040; 87804; 93005; 93041; 94640; 96374; 96375; 99284; J2930

== ENCOUNTER → 2017-05-02 | Outpatient (CLI) | payer OTHER, MEDICAID ==
[~2017-05-02] MED LIST changes: +AMOX875T2 PO; +SPIR25TA2
== END ==
LOC: M PAIN 13:45
PROVIDERS: ATTEND Nurse Practitioner Family
DX: M96.1 Postlaminectomy syndrome, not elsewhere classified (principal); M47.816 Spondylosis without myelopathy or radiculopathy, lumbar region; G89.29 Other chronic pain; I11.0 Hypertensive heart disease with heart failure; E11.9 Type 2 diabetes mellitus without complications; I50.9 Heart failure, unspecified; E78.00 Pure hypercholesterolemia, unspecified; F17.210 Nicotine dependence, cigarettes, uncomplicated; Z79.82 Long term (current) use of aspirin; Z79.4 Long term (current) use of insulin; Z79.891 Long term (current) use of opiate analgesic; Z79.899 Other long term (current) drug therapy

== ENCOUNTER → 2017-07-04 | Outpatient (CLI) | payer OTHER, MEDICAID | LOC: M PAIN 13:30 | DX: M96.1 Postlaminectomy syndrome, not elsewhere classified (principal); M47.816 Spondylosis without myelopathy or radiculopathy, lumbar region; I10 Essential (primary) hypertension; E78.00 Pure hypercholesterolemia, unspecified; E11.9 Type 2 diabetes mellitus without complications; M19.90 Unspecified osteoarthritis, unspecified site; F17.210 Nicotine dependence, cigarettes, uncomplicated; Z79.82 Long term (current) use of aspirin; Z79.4 Long term (current) use of insulin; Z79.899 Other long term (current) drug therapy | CPT/HCPCS: G0463 ==

== ENCOUNTER 2017-07-19 14:56 | Emergency (ER) | payer OTHER, MEDICAID ==
[2017-07-19 17:01] LABS: VENOUS BASE EXCESS 1.1 (-2.0-2.0); VENOUS HCO3 26.8 MEQ/L (23.0-27.0); VENOUS O2 SATURATION 94.3 % (60.0-80.0); VENOUS PARTIAL PRESSURE CO2 46.4 mmHg (38.0-50.0); VENOUS PARTIAL PRESSURE O2 71.4 mmHg (30.0-50.0); VENOUS STANDARD HCO3 25.4 MEQ/L; VENOUS TOTAL CO2 28.3 MEQ/L (24.0-28.0)
[2017-07-19 17:09] LABS: BASO % 0.3 % (0.0-1.0); HEMATOCRIT 45.8 % (36.0-47.0); HEMOGLOBIN 14.9 g/dl (12.0-16.0); IMMATURE GRANULOCYTE % 0.4 % (0-3.0); LYMPH # 1.3 10^3/uL (1.5-4.5); LYMPH % 9.6 % (24.0-44.0); MEAN CORPUSCULAR HEMOGLOBIN 26.4 pg (27.0-33.0); MEAN CORPUSCULAR HGB CONC 32.5 g/dl (32.0-36.5); MEAN CORPUSCULAR VOLUME 81.1 fl (80.0-96.0); MONO # 0.7 10^3/uL (0.0-0.8); NEUTROPHILS # 11.6 10^3/uL (1.8-7.7); NEUTROPHILS % 84.7 % (36.0-66.0); PLATELET COUNT, AUTOMATED 162 10^3/uL (150-450); RED BLOOD COUNT 5.65 10^6/uL (4.00-5.40); RED CELL DISTRIBUTION WIDTH 16.3 % (11.5-14.5); WHITE BLOOD COUNT 13.7 10^3/uL (4.0-10.0)
[2017-07-19 17:12] LABS: ALBUMIN 3.5 GM/DL (3.2-5.2); ALBUMIN/GLOBULIN RATIO 0.88 (1.00-1.93); ALKALINE PHOSPHATASE 67 U/L (45-117); ALT/SGPT 13 U/L (12-78); ANION GAP 7 MEQ/L (8-16); AST/SGOT 6 U/L (7-37); BILIRUBIN,DIRECT 0.1 MG/DL (0.0-0.2); BILIRUBIN,TOTAL 0.3 MG/DL (0.2-1.0); BLOOD UREA NITROGEN 12 MG/DL (7-18); CALCIUM LEVEL 8.4 MG/DL (8.8-10.2); CARBON DIOXIDE LEVEL 28 MEQ/L (21-32); CHLORIDE LEVEL 105 MEQ/L (98-107); CREATININE FOR GFR 1.35 MG/DL (0.55-1.30); GLOMERULAR FILTRATION RATE 41.2 (>39); GLUCOSE, FASTING 107 MG/DL (70-100); POTASSIUM SERUM 4.1 MEQ/L (3.5-5.1); SODIUM LEVEL 140 MEQ/L (136-145); TOTAL PROTEIN 7.5 GM/DL (6.4-8.2)
[2017-07-19 17:13] LABS: LACTIC ACID SEPSIS PROTOCOL 1.6 MMOL/L (0.4-2.0)
[2017-07-19 17:28] LABS: INFLUENZA A AMPLIFICATION NEGATIVE (NEGATIVE); INFLUENZA B AMPLIFICATION NEGATIVE (NEGATIVE)
[2017-07-19] MEDS: ONDANSETRON 4MG/2ML VIAL (J2405) IV (17:56)
[2017-07-19] MEDS: ASPIRIN 81 MG CHEW TABLET PO (17:57)
[2017-07-19] MEDS: IPRATROPIUM 0.5MG/ALBUTEROL 2.5MG INH SOL UD 3ML (DUONEB)(J7620) NEB ×2 (17:57→18:17)
[2017-07-19] MEDS: NS 1,000 ML IV (17:57)
[2017-07-19] MEDS: MOXIFLOXACIN 400 MG TAB PO (18:41)
== END 2017-07-19 18:55 | disposition home or self-care (01) ==
LOC: M ED 14:56
DX: J44.0 Chronic obstructive pulmonary disease with (acute) lower respiratory infection (principal); I10 Essential (primary) hypertension; F17.200 Nicotine dependence, unspecified, uncomplicated; Z99.81 Dependence on supplemental oxygen; Z91.048 Other nonmedicinal substance allergy status; Z79.899 Other long term (current) drug therapy; Z79.891 Long term (current) use of opiate analgesic; Z79.51 Long term (current) use of inhaled steroids; Z79.4 Long term (current) use of insulin; Z79.52 Long term (current) use of systemic steroids
CPT/HCPCS: 71046

== ENCOUNTER → 2017-08-27 | Outpatient (REF) | payer OTHER, MEDICAID | LOC: M LAB 11:42 | DX: J44.9 Chronic obstructive pulmonary disease, unspecified (principal); E78.5 Hyperlipidemia, unspecified; E11.9 Type 2 diabetes mellitus without complications; I10 Essential (primary) hypertension ==

== ENCOUNTER → 2017-09-08 | Outpatient (CLI) | payer OTHER, MEDICAID | LOC: M PAIN 14:30 | DX: G89.29 Other chronic pain (principal); M96.1 Postlaminectomy syndrome, not elsewhere classified; Z79.891 Long term (current) use of opiate analgesic; G96.19 Other disorders of meninges, not elsewhere classified; I50.9 Heart failure, unspecified; I11.0 Hypertensive heart disease with heart failure; M79.1 Myalgia; E78.00 Pure hypercholesterolemia, unspecified; E11.9 Type 2 diabetes mellitus without complications; F17.210 Nicotine dependence, cigarettes, uncomplicated; Z98.1 Arthrodesis status; Z79.52 Long term (current) use of systemic steroids; Z79.4 Long term (current) use of insulin; Z79.899 Other long term (current) drug therapy | CPT/HCPCS: G0463 ==

== ENCOUNTER → 2017-09-13 | Outpatient (REF) | payer OTHER, MEDICAID ==
[2017-09-13 13:59] LABS: C REACTIVE PROTEIN QUANTITATIV 0.31 MG/DL (0.00-0.30)
[2017-09-13 14:13] LABS: ERYTHROCYTE SEDIMENTATION RATE 2 mm/hr (0-30); REASON FOR REVIEW LEUKOCYTOSIS; SLIDE REVIEW Report; SOURCE PERIPHERAL SMEAR
[2017-09-14 14:16] LABS: ANTINUCLEAR ANTIBODIES DIRECT Negative (Negative)
== END ==
LOC: M LAB REF 12:55
DX: D72.829 Elevated white blood cell count, unspecified (principal)
CPT/HCPCS: 86140

== ENCOUNTER → 2017-10-04 | Outpatient (CLI) | payer OTHER, MEDICAID | LOC: M RAD 15:32 | DX: R91.8 Other nonspecific abnormal finding of lung field (principal); J84.10 Pulmonary fibrosis, unspecified; I70.0 Atherosclerosis of aorta | CPT/HCPCS: 71250 ==

== ENCOUNTER 2017-10-24 19:33 | Inpatient (IN) | payer OTHER, MEDICAID ==
[2017-10-24 20:39] LABS: BASO % 0.3 % (0.0-1.0); EOS % 0.1 % (0.0-3.0); HEMATOCRIT 44.6 % (36.0-47.0); IMMATURE GRANULOCYTE % 0.6 % (0-3.0); LYMPH # 1.6 10^3/uL (1.5-4.5); LYMPH % 10.9 % (24.0-44.0); MEAN CORPUSCULAR HEMOGLOBIN 25.4 pg (27.0-33.0); MEAN CORPUSCULAR HGB CONC 31.4 g/dl (32.0-36.5); MEAN CORPUSCULAR VOLUME 80.8 fl (80.0-96.0); MONO # 0.9 10^3/uL (0.0-0.8); MONO % 6.2 % (0.0-5.0); NEUTROPHILS # 11.7 10^3/uL (1.8-7.7); NEUTROPHILS % 81.9 % (36.0-66.0); PLATELET COUNT, AUTOMATED 177 10^3/uL (150-450); RED BLOOD COUNT 5.52 10^6/uL (4.00-5.40); RED CELL DISTRIBUTION WIDTH 18.7 % (11.5-14.5); WHITE BLOOD COUNT 14.3 10^3/uL (4.0-10.0)
[2017-10-24 20:51] LABS: ANION GAP 8 MEQ/L (8-16); BLOOD UREA NITROGEN 22 MG/DL (7-18); CALCIUM LEVEL 8.1 MG/DL (8.8-10.2); CARBON DIOXIDE LEVEL 27 MEQ/L (21-32); CHLORIDE LEVEL 106 MEQ/L (98-107); CK-MB VALUE MASS 1.2 NG/ML (<3.6); CPK CREATINE PHOSPHOKINASE 62 U/L (26-192); CREATININE FOR GFR 2.02 MG/DL (0.55-1.30); GLOMERULAR FILTRATION RATE 25.8 (>39); GLUCOSE, FASTING 215 MG/DL (70-100); MB/CK RELATIVE INDEX 1.93 (< OR =4); NT-PRO BNP 1312 PG/ML (<125); POTASSIUM SERUM 4.2 MEQ/L (3.5-5.1); SODIUM LEVEL 141 MEQ/L (136-145); TROPONIN I < 0.02 NG/ML (< 0.10)
[2017-10-24 20:52] LABS: LACTIC ACID SEPSIS PROTOCOL 2.4 MMOL/L (0.4-2.0)
[2017-10-24] MEDS: IPRATROPIUM 0.5MG/ALBUTEROL 2.5MG INH SOL UD 3ML (DUONEB)(J7620) NEB ×3 (21:15)
[2017-10-24 21:36] LABS: VENOUS BASE EXCESS 3.1 (-2.0-2.0); VENOUS HCO3 25.7 MEQ/L (23.0-27.0); VENOUS O2 SATURATION 88.8 % (60.0-80.0); VENOUS PARTIAL PRESSURE CO2 33.1 mmHg (38.0-50.0); VENOUS PARTIAL PRESSURE O2 48.9 mmHg (30.0-50.0); VENOUS PH 7.508 UNITS (7.330-7.430); VENOUS TOTAL CO2 26.7 MEQ/L (24.0-28.0)
[2017-10-25] MEDS: FUROSEMIDE 100 MG/10 ML VIAL (J1940) IV ×3 (00:45→21:26)
[2017-10-25] MEDS ORDERED: BISACODYL 10 MG SUPP PR (03:15)
[2017-10-25] MEDS ORDERED: ACETAMINOPHEN TAB 650MG DOSE (2X325MG) PO (03:15)
[2017-10-25] MEDS ORDERED: MORPHINE 4 MG/ML 1ML VIAL/SYRINGE (J2270) IV (03:15)
[2017-10-25] MEDS ORDERED: ONDANSETRON 4 MG TAB (S0181) PO (03:15)
[2017-10-25] MEDS: PERCOCET 5MG/325MG TAB PO ×2 (03:40→21:25)
[2017-10-25 05:08] LABS: BASO % 0.3 % (0.0-1.0); EOS # 0.1 10^3/uL (0.0-0.50); EOS % 0.5 % (0.0-3.0); HEMATOCRIT 41.6 % (36.0-47.0); IMMATURE GRANULOCYTE % 0.3 % (0-3.0); LYMPH # 2.4 10^3/uL (1.5-4.5); LYMPH % 19.6 % (24.0-44.0); MEAN CORPUSCULAR HEMOGLOBIN 25.2 pg (27.0-33.0); MEAN CORPUSCULAR HGB CONC 31.3 g/dl (32.0-36.5); MEAN CORPUSCULAR VOLUME 80.6 fl (80.0-96.0); MONO # 1.3 10^3/uL (0.0-0.8); MONO % 10.7 % (0.0-5.0); NEUTROPHILS # 8.2 10^3/uL (1.8-7.7); NEUTROPHILS % 68.6 % (36.0-66.0); PLATELET COUNT, AUTOMATED 161 10^3/uL (150-450); RED BLOOD COUNT 5.16 10^6/uL (4.00-5.40); RED CELL DISTRIBUTION WIDTH 18.4 % (11.5-14.5)
[2017-10-25 05:30] LABS: BLOOD UREA NITROGEN 25 MG/DL (7-18); CALCIUM LEVEL 8.5 MG/DL (8.8-10.2); CARBON DIOXIDE LEVEL 30 MEQ/L (21-32); CHLORIDE LEVEL 105 MEQ/L (98-107); CREATININE FOR GFR 1.76 MG/DL (0.55-1.30); GLOMERULAR FILTRATION RATE 30.2 (>39); GLUCOSE, FASTING 99 MG/DL (70-100); MAGNESIUM LEVEL 2.1 MG/DL (1.8-2.4); TROPONIN I < 0.02 NG/ML (< 0.10)
[2017-10-25 05:41] LABS: ANION GAP 8 MEQ/L (8-16); SODIUM LEVEL 143 MEQ/L (136-145)
[2017-10-25 05:45] LABS: POTASSIUM SERUM 3.2 MEQ/L (3.5-5.1)
[2017-10-25] MEDS: HEPARIN SOD (PORCINE) 5000 UNITS/ML VIAL SC ×3 (06:00→21:27)
[2017-10-25] MEDS ORDERED: NITROGLYCERIN 0.4 MG SUBL TABLET SL (07:00)
[2017-10-25] MEDS ORDERED: ALBUTEROL SULFATE 2.5 MG/0.5 ML INH NEB SOLN INH (07:00)
[2017-10-25] MEDS ORDERED: IPRATROPIUM 0.5MG/ALBUTEROL 2.5MG INH SOL UD 3ML (DUONEB)(J7620) NEB (07:30)
[2017-10-25] MEDS: POTASSIUM CHLORIDE 10 MEQ SR TABLET PO ×2 (08:37→12:34)
[2017-10-25] MEDS: amLODIPine 10 MG TAB PO (08:37)
[2017-10-25] MEDS: PREGABALIN 100 MG CAP (LYRICA) PO ×2 (08:37→21:27)
[2017-10-25] MEDS: methylPREDNISolone INJ 125 MG/2 ML VIAL (J2930) IV ×2 (08:37→17:01)
[2017-10-25] MEDS: HumuLIN N INSULIN (NovoLIN N) PER UNIT SC ×2 (08:37→17:01)
[2017-10-25] MEDS: METOPROLOL TART 25 MG TABLET PO ×2 (08:37→21:27)
[2017-10-25] MEDS: DULoxetine 30 MG CAP (CYMBALTA) PO ×2 (08:37→21:27)
[2017-10-25] MEDS: SENOKOT S TAB PO ×2 (08:38→21:27)
[2017-10-25] MEDS: ALLOPURINOL 300 MG TAB PO (08:38)
[2017-10-25] MEDS: LevoFLOXacin IV 750 MG in APPROPRIATE DILUENT 1 EA IV (08:38)
[2017-10-25] MEDS: PANTOPRAZOLE 40MG TAB (PROTONIX) PO (08:38)
[2017-10-25] MEDS ORDERED: HumuLIN N INSULIN (NovoLIN N) PER UNIT SC (09:00)
[2017-10-25] MEDS: ADVAIR HFA 115/21MCG INHALER INH ×2 (09:00→20:40)
[2017-10-25] MEDS ORDERED: SLF 3 ML SYR IV (11:00)
[2017-10-25] MEDS: SLF 3 ML SYR IV ×2 (15:01→21:28)
[2017-10-25] MEDS: zolPIDEM TARTRATE 5 MG TAB PO (21:26)
[2017-10-25] MEDS: ASPIRIN ENTERIC 325 MG TAB PO (21:26)
[2017-10-25] MEDS: ROSUVASTATIN 10 MG TAB (CRESTOR) PO (21:26)
[2017-10-26] MEDS: methylPREDNISolone INJ 125 MG/2 ML VIAL (J2930) IV (00:53)
[2017-10-26 05:43] LABS: BASO % 0.1 % (0.0-1.0); HEMATOCRIT 41.5 % (36.0-47.0); HEMOGLOBIN 12.7 g/dl (12.0-15.5); IMMATURE GRANULOCYTE % 0.6 % (0-3.0); LYMPH # 0.9 10^3/uL (1.5-4.5); LYMPH % 7.5 % (24.0-44.0); MEAN CORPUSCULAR HEMOGLOBIN 24.8 pg (27.0-33.0); MEAN CORPUSCULAR HGB CONC 30.6 g/dl (32.0-36.5); MEAN CORPUSCULAR VOLUME 81.1 fl (80.0-96.0); MONO # 0.2 10^3/uL (0.0-0.8); MONO % 1.2 % (0.0-5.0); NEUTROPHILS % 90.6 % (36.0-66.0); PLATELET COUNT, AUTOMATED 182 10^3/uL (150-450); RED BLOOD COUNT 5.12 10^6/uL (4.00-5.40); RED CELL DISTRIBUTION WIDTH 17.6 % (11.5-14.5); WHITE BLOOD COUNT 12.1 10^3/uL (4.0-10.0)
[2017-10-26] MEDS: SLF 3 ML SYR IV ×3 (05:54→21:38)
[2017-10-26] MEDS: HEPARIN SOD (PORCINE) 5000 UNITS/ML VIAL SC ×3 (05:55→21:37)
[2017-10-26 05:59] LABS: ANION GAP 6 MEQ/L (8-16); BLOOD UREA NITROGEN 31 MG/DL (7-18); CARBON DIOXIDE LEVEL 28 MEQ/L (21-32); CHLORIDE LEVEL 103 MEQ/L (98-107); CREATININE FOR GFR 1.55 MG/DL (0.55-1.30); MAGNESIUM LEVEL 2.1 MG/DL (1.8-2.4); POTASSIUM SERUM 4.4 MEQ/L (3.5-5.1); SODIUM LEVEL 137 MEQ/L (136-145)
[2017-10-26 06:00] LABS: GLUCOSE, FASTING 438 MG/DL (70-100)
[2017-10-26] MEDS ORDERED: GLUCOSE 4 GM CHEW TABLET PO (07:00)
[2017-10-26] MEDS ORDERED: DEXTROSE 50% 50 ML SYRINGE IV (07:00)
[2017-10-26] MEDS ORDERED: GLUCAGON FOR INJ 1 MG VIAL (J1610) SC (07:00)
[2017-10-26] MEDS: ADVAIR HFA 115/21MCG INHALER INH ×2 (07:22→21:00)
[2017-10-26] MEDS: HumuLIN N INSULIN (NovoLIN N) PER UNIT SC ×2 (08:48→17:30)
[2017-10-26] MEDS: HumaLOG INSULIN (NovoLOG) PER UNIT SC ×4 (08:49→21:36)
[2017-10-26] MEDS: ALLOPURINOL 300 MG TAB PO (08:49)
[2017-10-26] MEDS: PREGABALIN 100 MG CAP (LYRICA) PO ×2 (08:49→21:32)
[2017-10-26] MEDS: amLODIPine 10 MG TAB PO (08:50)
[2017-10-26] MEDS: METOPROLOL TART 25 MG TABLET PO ×2 (08:50→21:34)
[2017-10-26] MEDS: predniSONE 20 MG TAB PO (08:50)
[2017-10-26] MEDS: SPIRONOLACTONE 25 MG TAB PO (08:50)
[2017-10-26] MEDS: DULoxetine 30 MG CAP (CYMBALTA) PO ×2 (08:50→21:32)
[2017-10-26] MEDS: CALCITRIOL 0.25 MCG CAP (S0169) PO (08:50)
[2017-10-26] MEDS: FUROSEMIDE 100 MG/10 ML VIAL (J1940) IV ×2 (08:51→21:32)
[2017-10-26] MEDS: PANTOPRAZOLE 40MG TAB (PROTONIX) PO (08:51)
[2017-10-26] MEDS: SENOKOT S TAB PO ×2 (08:51→21:35)
[2017-10-26 12:06] LABS: BEDSIDE GLUCOSE 562 MG/DL (83-110)
[2017-10-26] MEDS: ASPIRIN ENTERIC 325 MG TAB PO (21:32)
[2017-10-26] MEDS: zolPIDEM TARTRATE 5 MG TAB PO (21:33)
[2017-10-26] MEDS: ROSUVASTATIN 10 MG TAB (CRESTOR) PO (21:33)
[2017-10-26] MEDS: PERCOCET 5MG/325MG TAB PO (21:35)
[2017-10-27 05:16] LABS: BASO % 0.1 % (0.0-1.0); EOS % 0.1 % (0.0-3.0); HEMATOCRIT 41.2 % (36.0-47.0); HEMOGLOBIN 12.9 g/dl (12.0-15.5); IMMATURE GRANULOCYTE % 0.6 % (0-3.0); LYMPH # 2.2 10^3/uL (1.5-4.5); LYMPH % 13.9 % (24.0-44.0); MEAN CORPUSCULAR HEMOGLOBIN 25.2 pg (27.0-33.0); MEAN CORPUSCULAR HGB CONC 31.3 g/dl (32.0-36.5); MEAN CORPUSCULAR VOLUME 80.6 fl (80.0-96.0); MONO # 0.9 10^3/uL (0.0-0.8); MONO % 5.4 % (0.0-5.0); NEUTROPHILS # 12.6 10^3/uL (1.8-7.7); NEUTROPHILS % 79.9 % (36.0-66.0); PLATELET COUNT, AUTOMATED 198 10^3/uL (150-450); RED BLOOD COUNT 5.11 10^6/uL (4.00-5.40); RED CELL DISTRIBUTION WIDTH 17.8 % (11.5-14.5); WHITE BLOOD COUNT 15.7 10^3/uL (4.0-10.0)
[2017-10-27] MEDS: SLF 3 ML SYR IV ×3 (05:17→20:50)
[2017-10-27] MEDS: HEPARIN SOD (PORCINE) 5000 UNITS/ML VIAL SC ×3 (05:17→20:50)
[2017-10-27 05:28] LABS: ANION GAP 6 MEQ/L (8-16); BLOOD UREA NITROGEN 40 MG/DL (7-18); CARBON DIOXIDE LEVEL 29 MEQ/L (21-32); CHLORIDE LEVEL 101 MEQ/L (98-107); CREATININE FOR GFR 1.58 MG/DL (0.55-1.30); GLOMERULAR FILTRATION RATE 34.2 (>39); GLUCOSE, FASTING 279 MG/DL (70-100); MAGNESIUM LEVEL 1.9 MG/DL (1.8-2.4); POTASSIUM SERUM 3.9 MEQ/L (3.5-5.1); SODIUM LEVEL 136 MEQ/L (136-145)
[2017-10-27] MEDS: ADVAIR HFA 115/21MCG INHALER INH ×2 (07:28→20:33)
[2017-10-27] MEDS: DULoxetine 30 MG CAP (CYMBALTA) PO ×2 (07:57→20:45)
[2017-10-27] MEDS: HumaLOG INSULIN (NovoLOG) PER UNIT SC ×4 (07:57→20:49)
[2017-10-27] MEDS: FUROSEMIDE 100 MG/10 ML VIAL (J1940) IV ×2 (07:57→20:49)
[2017-10-27] MEDS: LevoFLOXacin IV 750 MG in APPROPRIATE DILUENT 1 EA IV (07:57)
[2017-10-27] MEDS: PREGABALIN 100 MG CAP (LYRICA) PO ×2 (07:58→20:45)
[2017-10-27] MEDS: ALLOPURINOL 300 MG TAB PO (07:58)
[2017-10-27] MEDS: SENOKOT S TAB PO ×2 (07:58→20:48)
[2017-10-27] MEDS: METOPROLOL TART 25 MG TABLET PO ×2 (07:58→20:48)
[2017-10-27] MEDS: amLODIPine 10 MG TAB PO (07:59)
[2017-10-27] MEDS: predniSONE 10 MG TAB PO (07:59)
[2017-10-27] MEDS: PANTOPRAZOLE 40MG TAB (PROTONIX) PO (07:59)
[2017-10-27 10:11] LABS: BEDSIDE GLUCOSE 410 MG/DL (83-110)
[2017-10-27 10:11] LABS: BEDSIDE GLUCOSE 428 MG/DL (83-110)
[2017-10-27 10:12] LABS: BEDSIDE GLUCOSE 356 MG/DL (83-110)
[2017-10-27] MEDS: HumuLIN N INSULIN (NovoLIN N) PER UNIT SC ×2 (10:21→18:04)
[2017-10-27 11:27] LABS: BEDSIDE GLUCOSE 387 MG/DL (83-110)
[2017-10-27 17:38] LABS: BEDSIDE GLUCOSE 286 MG/DL (83-110)
[2017-10-27] MEDS: PERCOCET 5MG/325MG TAB PO ×2 (18:04→23:23)
[2017-10-27 20:42] LABS: BEDSIDE GLUCOSE 400 MG/DL (83-110)
[2017-10-27] MEDS: zolPIDEM TARTRATE 5 MG TAB PO (20:45)
[2017-10-27] MEDS: ASPIRIN ENTERIC 325 MG TAB PO (20:45)
[2017-10-27] MEDS: ROSUVASTATIN 10 MG TAB (CRESTOR) PO (20:48)
[2017-10-28] MEDS: SLF 3 ML SYR IV (05:41)
[2017-10-28] MEDS: HEPARIN SOD (PORCINE) 5000 UNITS/ML VIAL SC (05:41)
[2017-10-28 05:48] LABS: BASO % 0.2 % (0.0-1.0); EOS % 0.3 % (0.0-3.0); HEMATOCRIT 42.6 % (36.0-47.0); HEMOGLOBIN 13.5 g/dl (12.0-15.5); IMMATURE GRANULOCYTE % 0.7 % (0-3.0); LYMPH # 3.1 10^3/uL (1.5-4.5); LYMPH % 22.8 % (24.0-44.0); MEAN CORPUSCULAR HEMOGLOBIN 25.3 pg (27.0-33.0); MEAN CORPUSCULAR HGB CONC 31.7 g/dl (32.0-36.5); MEAN CORPUSCULAR VOLUME 79.9 fl (80.0-96.0); MONO # 1.3 10^3/uL (0.0-0.8); MONO % 9.3 % (0.0-5.0); NEUTROPHILS # 9.2 10^3/uL (1.8-7.7); NEUTROPHILS % 66.7 % (36.0-66.0); PLATELET COUNT, AUTOMATED 204 10^3/uL (150-450); RED BLOOD COUNT 5.33 10^6/uL (4.00-5.40); RED CELL DISTRIBUTION WIDTH 17.5 % (11.5-14.5); WHITE BLOOD COUNT 13.7 10^3/uL (4.0-10.0)
[2017-10-28 06:08] LABS: ANION GAP 6 MEQ/L (8-16); BLOOD UREA NITROGEN 36 MG/DL (7-18); CALCIUM LEVEL 8.9 MG/DL (8.8-10.2); CARBON DIOXIDE LEVEL 34 MEQ/L (21-32); CHLORIDE LEVEL 104 MEQ/L (98-107); CREATININE FOR GFR 1.41 MG/DL (0.55-1.30); GLUCOSE, FASTING 177 MG/DL (70-100); MAGNESIUM LEVEL 1.7 MG/DL (1.8-2.4); POTASSIUM SERUM 3.7 MEQ/L (3.5-5.1); SODIUM LEVEL 144 MEQ/L (136-145)
[2017-10-28] MEDS: MAG SULF 1GM/100ML (MAG RUN) 1 GM in APPROPRIATE DILUENT 1 EA IV (06:39)
[2017-10-28] MEDS: ADVAIR HFA 115/21MCG INHALER INH (07:24)
[2017-10-28] MEDS: FUROSEMIDE 100 MG/10 ML VIAL (J1940) IV (08:39)
[2017-10-28] MEDS: HumaLOG INSULIN (NovoLOG) PER UNIT SC (08:39)
[2017-10-28] MEDS: DULoxetine 30 MG CAP (CYMBALTA) PO (08:40)
[2017-10-28] MEDS: PREGABALIN 100 MG CAP (LYRICA) PO (08:40)
[2017-10-28] MEDS: HumuLIN N INSULIN (NovoLIN N) PER UNIT SC (08:40)
[2017-10-28] MEDS: SENOKOT S TAB PO (08:40)
[2017-10-28] MEDS: CALCITRIOL 0.25 MCG CAP (S0169) PO (08:40)
[2017-10-28] MEDS: METOPROLOL TART 25 MG TABLET PO (08:41)
[2017-10-28] MEDS: ALLOPURINOL 300 MG TAB PO (08:41)
[2017-10-28] MEDS: PANTOPRAZOLE 40MG TAB (PROTONIX) PO (08:41)
[2017-10-28] MEDS: predniSONE 10 MG TAB PO (08:41)
[2017-10-28] MEDS: SPIRONOLACTONE 25 MG TAB PO (08:41)
[2017-10-28] MEDS: amLODIPine 10 MG TAB PO (08:41)
[2017-10-28] MEDS: PERCOCET 5MG/325MG TAB PO (08:49)
== END 2017-10-28 12:00 | disposition home or self-care (01) | DRG 291 ==
LOC: M ED INP 10-25 03:10 → M PCU 10-25 03:45 → M ED 19:33
DX: I13.0 Hypertensive heart and chronic kidney disease with heart failure and stage 1 through stage 4 chronic kidney disease, or unspecified chronic kidney disease (principal); I50.31 Acute diastolic (congestive) heart failure; N17.9 Acute kidney failure, unspecified; J96.11 Chronic respiratory failure with hypoxia; J44.1 Chronic obstructive pulmonary disease with (acute) exacerbation; N18.3 Chronic kidney disease, stage 3 (moderate); E11.65 Type 2 diabetes mellitus with hyperglycemia; K21.9 Gastro-esophageal reflux disease without esophagitis; E78.5 Hyperlipidemia, unspecified; G47.00 Insomnia, unspecified; F39 Unspecified mood [affective] disorder; G89.29 Other chronic pain; Z91.11 Patient's noncompliance with dietary regimen; M10.9 Gout, unspecified; Z79.899 Other long term (current) drug therapy; Z79.82 Long term (current) use of aspirin; I27.20 Pulmonary hypertension, unspecified

== ENCOUNTER → 2017-11-25 | Outpatient (CLI) | payer OTHER, MEDICAID | LOC: M PAIN 13:45 | DX: M96.1 Postlaminectomy syndrome, not elsewhere classified (principal); G89.29 Other chronic pain; I10 Essential (primary) hypertension; E78.00 Pure hypercholesterolemia, unspecified; E11.9 Type 2 diabetes mellitus without complications; M19.90 Unspecified osteoarthritis, unspecified site; F17.210 Nicotine dependence, cigarettes, uncomplicated; Z79.4 Long term (current) use of insulin; Z79.82 Long term (current) use of aspirin; Z79.891 Long term (current) use of opiate analgesic; Z86.79 Personal history of other diseases of the circulatory system | CPT/HCPCS: G0463 ==

== ENCOUNTER 2017-12-05 17:12 | Emergency (ER) | payer OTHER, MEDICAID ==
[2017-12-05 19:01] LABS: ANION GAP 5 MEQ/L (8-16); BLOOD UREA NITROGEN 25 MG/DL (7-18); CALCIUM LEVEL 8.7 MG/DL (8.8-10.2); CARBON DIOXIDE LEVEL 30 MEQ/L (21-32); CHLORIDE LEVEL 105 MEQ/L (98-107); CREATININE FOR GFR 1.45 MG/DL (0.55-1.30); GLOMERULAR FILTRATION RATE 37.8 (>39); GLUCOSE, FASTING 141 MG/DL (70-100); POTASSIUM SERUM 4.7 MEQ/L (3.5-5.1); SODIUM LEVEL 140 MEQ/L (136-145)
[2017-12-05] MEDS ORDERED: PROHANCE 279.3MG/ML 5ML VIAL (A9576) As Ordered (21:54)
[2017-12-05 23:20] LABS: BEDSIDE GLUCOSE 71 MG/DL (83-110)
== END 2017-12-05 23:40 | disposition home or self-care (01) ==
LOC: M ED 17:12
DX: H05.20 Unspecified exophthalmos (principal); E11.9 Type 2 diabetes mellitus without complications; I10 Essential (primary) hypertension; J44.9 Chronic obstructive pulmonary disease, unspecified; F32.9 Major depressive disorder, single episode, unspecified; Z72.0 Tobacco use; H26.9 Unspecified cataract; Z79.82 Long term (current) use of aspirin; Z79.4 Long term (current) use of insulin; Z79.899 Other long term (current) drug therapy; Z91.89 Other specified personal risk factors, not elsewhere classified
CPT/HCPCS: A9576

== ENCOUNTER → 2018-01-18 | Outpatient (CLI) | payer OTHER, MEDICAID | LOC: M WUC 14:53 | DX: M19.011 Primary osteoarthritis, right shoulder (principal); M85.871 Other specified disorders of bone density and structure, right ankle and foot; M85.811 Other specified disorders of bone density and structure, right shoulder; M19.071 Primary osteoarthritis, right ankle and foot; M25.471 Effusion, right ankle | CPT/HCPCS: 73030 ==

== ENCOUNTER → 2018-02-27 | Outpatient (CLI) | payer OTHER, MEDICAID | LOC: M PAIN 14:00 | DX: M96.1 Postlaminectomy syndrome, not elsewhere classified (principal); E11.9 Type 2 diabetes mellitus without complications; M19.90 Unspecified osteoarthritis, unspecified site; I10 Essential (primary) hypertension; E78.00 Pure hypercholesterolemia, unspecified; Z79.82 Long term (current) use of aspirin; Z79.4 Long term (current) use of insulin; Z79.899 Other long term (current) drug therapy; Z87.891 Personal history of nicotine dependence; Z86.79 Personal history of other diseases of the circulatory system | CPT/HCPCS: G0463 ==

== ENCOUNTER 2018-03-06 17:42 | Emergency (ER) | payer OTHER, MEDICAID ==
[2018-03-06] MEDS: predniSONE 20 MG TAB PO (18:37)
[2018-03-06] MEDS: IPRATROPIUM 0.5MG/ALBUTEROL 2.5MG INH SOL UD 3ML (DUONEB)(J7620) NEB (18:38)
== END 2018-03-06 19:54 | disposition home or self-care (01) ==
LOC: M ED 17:42
DX: J44.1 Chronic obstructive pulmonary disease with (acute) exacerbation (principal); E11.9 Type 2 diabetes mellitus without complications; I12.9 Hypertensive chronic kidney disease with stage 1 through stage 4 chronic kidney disease, or unspecified chronic kidney disease; N18.3 Chronic kidney disease, stage 3 (moderate); N17.9 Acute kidney failure, unspecified; Z99.81 Dependence on supplemental oxygen; Z79.82 Long term (current) use of aspirin; Z91.048 Other nonmedicinal substance allergy status; Z79.899 Other long term (current) drug therapy; Z79.51 Long term (current) use of inhaled steroids; Z79.4 Long term (current) use of insulin
CPT/HCPCS: 71046

== ENCOUNTER → 2018-04-14 | Outpatient (CLI) | payer OTHER, MEDICAID | LOC: M RAD 12:59 | DX: Z12.31 Encounter for screening mammogram for malignant neoplasm of breast (principal) | CPT/HCPCS: 77067 ==

== ENCOUNTER → 2018-05-12 | Outpatient (CLI) | payer OTHER, MEDICAID ==
[~2018-05-12] MED LIST changes: +ALLO10TA PO; -AMLO10TA2 PO; +AMLO10TA4 PO; -ASPI325T24 PO; +ASPI325T25 PO; +CALC1CAP31 PO; +CALC600T31 PO; +CALCTAB68 PO; +DULO1CAP3 PO; +GUAI100S27 PO; +INSUN SC; +IPRA0.00 INH; -IPRASOL4 INH; +MAGN400T PO; +MAXI0.1O OS; +MAXI0.1S4 OP; +METO25TA4 PO; +NEO/POLY/DEX; +PRED10TA2 PO; +SPIR-10; +SPIR-10 PO; -SPIR25TA2; +VENTAER INH; +VITA50005 PO; +ZANT150T15 PO; +ZITHTAB PO; +ZYLO300T6 PO
--- NOTE | 2018-05-12 14:05 | REP ---
CT chest without contrast: History: Abnormal lung field finding. Adenopathy. Density left lung. There are numerous prior chest CTs. The most recent of these is a CT study from October 04, 2017. The most remote prior chest CT in the patient's electronic x-ray jacket is dated April 29, 2005. CT findings: The known superior middle mediastinum is again seen essentially unchanged over the long interval of a prior CT studies. It measures 4.9 cm anterior to posterior by 2.3 cm medial to lateral by 3.1 cm cranial to caudal which is similar to multiple prior studies. There is mild mediastinal lymphadenopathy again noted. These lymph nodes are a little larger than they were in 2005 but not changed from the more recent prior study of October 04, 2017. The largest lymph node is a precarinal lymph node which measures 17 x 20 mm in transverse dimension. Prominent vascular calcification is again noted. There is no evidence of pleural effusion. There is a diffuse interstitial fibrosis pattern in the bases as before. Coarse fibrosis is seen in the upper lobes unchanged. No pulmonary mass lesion or new nodular opacity is seen. No adrenal lesion is observed. The gallbladder is surgically absent. There is fusion hardware in the upper lumbar spine. Impression: Chronic findings including left mediastinal mass and stable mediastinal lymphadenopathy. Interstitial fibrosis and coarse fibrosis changes in the lung parenchyma are stable as well. Electronically Signed by Yaya Ludwig MD 05/12/2018 04:57 P
== END ==
LOC: M RAD 13:20
PROVIDERS: ATTEND Internal Medicine Pulmonary Disease
DX: R91.8 Other nonspecific abnormal finding of lung field (principal)

== ENCOUNTER → 2018-07-03 | Outpatient (CLI) | payer MEDICARE, MEDICAID ==
[~2018-07-03] MED LIST changes: -AMLO10TA4 PO; +AMLO10TA5 PO; +LASI40TA9 PO; -LASI80TA PO; +LASI80TA3 PO
--- NOTE | 2018-07-04 01:58 | ECWPNPC ---
PATIENT NAME: ROSALVA MOSES : 1945 GENDER: FEMALE VISIT DATE: 07/03/2018 DISCHARGE DATE: 07/03/18 1417 VISIT LOCKED DATE TIME: PHYSICIAN: NOE VALLEJO RESOURCE: NOE VALLEJO REASON FOR APPOINTMENT 1. BACK HISTORY OF PRESENT ILLNESS HISTORY OF PRESENT ILLNESS: 72 Y/O FEMALE WITH HX OF CHRONIC LBP AND BILAT. 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 CURRENTLY USING LYRICA 200MG BID AND HYDROCODONE 10/325 UP TO 4X DAY PRN FOR SEVERE PAIN WITH GOOD EFFECT. REPORTS IMPROVED ACTIVITY TOLERANCE.HX OF MULTIPLE COMORBIDITIES AND HOSPITALIZATIONS.COMPLAINING SEVERE NIGHTTIME CRAMPING 2-3 NIGHTS PER WEEK. PAIN THE PATIENT DESCRIBES THE PAIN... THE PATIENT DESCRIBES THE PAIN... THE PATIENT DESCRIBES THE PAIN... THE PATIENT DESCRIBES THE PAIN... THE PATIENT DESCRIBES THE PAIN... THE PATIENT DESCRIBES THE PAIN... THE PATIENT DESCRIBES THE PAIN... THE PATIENT DESCRIBES THE PAIN... THE PATIENT DESCRIBES THE PAIN... THE PATIENT DESCRIBES THE PAIN... THE PATIENT DESCRIBES THE PAIN... THE PATIENT DESCRIBES THE PAIN... THE PATIENT DESCRIBES THE PAIN... FALL RISK SCREENING: SCREENING :NO FALLS IN THE PAST YEAR CURRENT MEDICATIONS TAKING SPIRIVA HANDIHALER 18 MCG CAPSULE 1 CAPSULE INHALATION ONCE A DAY NEEDED TAKING LASIX 40 MG TABLET 2 TABLET ORALLY BID TAKING PREDNISONE 10 MG TABLET 1 TABLET ORALLY ONCE A DAY TAKING RANITIDINE HCL 150 MG CAPSULE 1 CAPSULE ORALLY ONCE A DAY TAKING CALCITRIOL 0.25 MCG CAPSULE 1 CAPSULE ORALLY TUE, TUE, TUE TAKING ASPIRIN 325 MG TABLET 1 TABLET ORALLY ONCE A DAY TAKING CYMBALTA 60 MG CAPSULE DELAYED RELEASE PARTICLES 1 CAPSULE ORALLY TWICE A DAY TAKING HUMULIN N 100 UNIT/ML SUSPENSION 70 UNITS SUBCUTANEOUS BID TAKING NITROGLYCERIN 0.4 MG TABLET SUBLINGUAL SUBLINGUAL DIRECTED TAKING CRESTOR 20 MG TABLET 1 TABLET ORALLY ONCE A DAY AT BEDTIME TAKING MAGNESIUM 500 MG TABLET 2 TABLET WITH A MEAL ORALLY BID TAKING SPIRONOLACTONE 25 MG TABLET 1 TABLET ORALLY ONCE A DAY TAKING NEXIUM 40 MG 1 CAPSULE ORALLY ONCE A DAY TAKING ACETAMINOPHEN EXTRA STRENGTH 500 MG TABLET 1-2 TABLET NEEDED ORALLY EVERY 8 HRS TAKING AMLODIPINE BESYLATE 5 MG TABLET 1 TABLET ORALLY ONCE A DAY TAKING LYRICA 200 MG CAPSULE 1 CAPSULE ORALLY BID MDD2 TAKING OXYGEN 2 LITERS/MIN NASAL CANNULA TAKING LYRICA 200 MG CAPSULE 1 CAPSULE ORALLY BID MDD=2 TAKING HYDROCODONE-ACETAMINOPHEN 10-325 MG TABLET 1 TABLET NEEDED ORALLY Q6H PRN MDD4 NOT-TAKING VITAMIN D (ERGOCALCIFEROL) 84744 UNIT CAPSULE 1 CAPSULE ORALLY ONCE A DAY NOT-TAKING ZOLPIDEM 5 MG TABLET 1 TAB(S) ORAL QHS NOT-TAKING METOPROLOL TARTRATE 25 MG TABLET 1 TABLET ORALLY TWICE A DAY NOT-TAKING ADVAIR DISKUS 250-50 MCG/DOSE AEROSOL POWDER BREATH ACTIVATED 1 PUFF INHALATION TWICE A DAY NOT-TAKING PROAIR HFA 108 (90 BASE) MCG/ACT AEROSOL SOLUTION 1 PUFF INHALATION EVERY 4-6 HOURS NEEDED NOT-TAKING ALLOPURINOL 300 MG TABLET 1 TABLET ORALLY ONCE A DAY NOT-TAKING CALCIUM 600 + D 600-200 MG-UNIT TABLET 1 TABLET WITH A MEAL ORALLY ONCE A DAY NOT-TAKING ROSUVASTATIN CALCIUM 20 MG TABLET 1 TABLET ORALLY ONCE A DAY NOT-TAKING ZANTAC 150 MG TABLET 1 TABLET ORALLY DAILY NOT-TAKING MUCINEX 600 MG TABLET EXTENDED RELEASE 12 HOUR 1 TABLET NEEDED ORALLY EVERY 12 HRS, NOTES: NOT LATELY MEDICATION LIST REVIEWED AND RECONCILED WITH THE PATIENT PAST MEDICAL HISTORY CONGESTIVE HEART FAILURE HYPERTENSION 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 SURGICAL HISTORY ANTERIOR POSTERIOR FUSION BACK SURGERY 12/28 LEFT FOOT NERVE ENTRAPMENT BACK SURGERY 1999 BACK SURGERY TOTAL HYSTERECTOMY CHOLECYSTECTOMY RIGHT SHOULDER SURGERY LEFT LOWER LEG VENOUS STRIPPING FAMILY HISTORY FATHER: DIAGNOSED WITH HYPERTENSION MOTHER: DIAGNOSED WITH DIABETES, HYPERTENSION SOCIAL HISTORY GENERAL: TOBACCO USE ARE YOU A:CURRENT SMOKER ARE YOU INTERESTED IN QUITTING?NOT READY TO QUIT HAS CUT DOWN ON # OF CIGARETTES/DAY HOW MANY CIGARETTES A DAY DO YOU SMOKE?11-20 HOW SOON AFTER YOU WAKE UP DO YOU SMOKE YOUR FIRST CIGARETTE?6-30 MIN HOW OFTEN DO YOU SMOKE CIGARETTES?EVERY DAY PATIENT COUNSELED ON THE DANGERS OF TOBACCO USE AND URGED TO QUIT:02/27/2018 ALCOHOL SCREENING DID YOU HAVE A DRINK CONTAINING ALCOHOL IN THE PAST YEAR?NO POINTS0 INTERPRETATIONNEGATIVE RECREATIONAL DRUG USE DRUG USE?NO CAFFEINE CAFFEINE USE?YES HOW OFTEN AND HOW MUCH? 2 CUPS COFFEE PER DAY CONGREGATIONAL [id number] YARSANI LANGUAGE LANGUAGES SPOKEN:UKRAINIAN LEARNING BARRIERS / SPECIAL NEEDS ORIENTED TO PLAN OF CARE: PATIENT, PAIN MANAGEMENT PATIENT, ORIENTED TO PLAN OF CARE: PATIENT, PAIN MANAGEMENT PATIENT. NO DOMESTIC VIOLENCE . 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 DIET: REGULAR, NO ADDED SALT. EXERCISE: NONE. OTHERS AT HOME: NONE. NEW PATIENT PAIN DIARY TODAY'S VISITNOTES FROM 0-10, WHAT LEVEL IS YOUR PAIN TODAY?8 PAIN CLINIC PFS, CLERGY, PUBLIC HEALTH REFERRALS PFS REFERRAL NEEDED?NO CLERGY REFERRAL NEEDED?NO PUBLIC HEALTH REFERRAL NEEDED?NO WAS THE PROVIDER NOTIFIED OF ANY PERTINENT INFO?NO N/A HAS THE PATIENT BEEN EDUCATED REGARDING HIS/HER PLAN OF CARE?YES HAS THE PATIENT BEEN EDUCATED REGARDING PAIN, THE RISK FOR PAIN, THE IMPORTANCE OF EFFECTIVE PAIN MANAGEMENT, AND THE PAIN ASSESSMENT PROCESS?YES HOUSING: RENTS APARTMENT. ADVANCE DIRECTIVE ADVANCE DIRECTIVE DISCUSSED WITH PATIENT:YES DECLINED INFO AND ASSISTANCE WITH HCP FORM AT THIS TIME. 07/03/18 REVIEWED WITH PT 07/03/18 1349 BV. HOSPITALIZATION/MAJOR DIAGNOSTIC PROCEDURE SURGERY RELATED CONGESTIVE HEART FAILURE AND REDUCED KIDNEY FUNCTION 10/2017 REVIEW OF SYSTEMS REVIEWED BY: PROVIDER: NOE STINSON . CONSTITUTIONAL: ANY CHANGE IN YOUR MEDICAL CONDITION? NO . CHILLS NO . FEVER NO . INFECTION: DO YOU HAVE NEW INFECTIONS? NO . DO YOU HAVE HISTORY OF MRSA? NO . MUSCULOSKELETAL: ANY NEW PATTERNS OF PAIN OR NUMBNESS? NO . GASTROENTEROLOGY: ANY NEW CHANGE IN BOWEL CONTROL? YES, COMPLAINS OF INCREASED LOOSE STOOLS OVER THE PAST MONTH. . GENITOURINARY: ANY NEW CHANGE IN BLADDER CONTROL? YES, COMPLAINS OF INCREASED STRESS INCONTINENCE AND URGENCY OVER THE PAST COUPLE MONTHS. . IS THERE A CHANCE YOU COULD BE ? NO . HEMATOLOGY/LYMPH: DO YOU TAKE ANY BLOOD THINNERS? (FOR EXAMPLE- COUMADIN, PLAVIX, AGGRENOX, PLATEL, PRADAXA, OR XARELTO) NO . WHEN WAS YOUR LAST DOSE? DATE: TIME: . NEUROLOGY: HAVE YOU FALLEN IN THE PAST 12 MONTHS? YES, PT REPORTS A FEW FALLS IN THE PAST 12 MONTS. CANNOT RECALL EXACTLY WHEN BUT DENIES INJURIES OR ED VISIT WITH ANY FALL, . ANY NEW EXTREMITY NUMBNESS OR WEAKNESS? YES, PT COMPLAINS OF CONSTANT NUMBNESS IN BILATERAL HANDS THAT HAS BEEN GOING ON FOR THE PAST COUPLE MONTHS . CARDIOLOGY: DO YOU HAVE A PACEMAKER OR DEFIBRILLATOR? NO . RESPIRATORY: HAVE YOU BEEN SICK IN THE PAST WEEK? NO . FEVER NO . FLU LIKE SYMPTOMS? NO . COUGH NO . INTEGUMENTARY: DO YOU HAVE ANY RASHES OR OPEN SORES? YES, PT HAS SCRAPE TO RIGHT ARM THAT SHE HAS COVERED BY A BANDAGE. STATES SHE KNOCKED HER ARM ON THE BATHROOM COUNTER. . ALLERGIC/IMMUNO: ARE YOU ALLERGIC TO IV DYE? NO . ANY NEW ALLERGIES? NO . PSYCHIATRIC: DO YOU HAVE THOUGHTS OF HURTING YOURSELF OR SOMEONE ELSE? NO . ARE YOU ABUSED, NEGLECTED, OR IN AN UNSAFE ENVIRONMENT? NO . ENDOCRINOLOGY: ARE YOU DIABETIC? YES . OTHER: DO YOU NEED ANY PRESCRIPTIONS? NO . IF YES, PLEASE LIST: ____ . ANY NEW PROBLEMS WITH YOUR MEDICATIONS? NO . WHEN DID YOU LAST EAT? ____ . WHEN DID YOU LAST DRINK? ____ . WHAT DID YOU LAST DRINK? ____ . NAME OF PERSON DRIVING YOU HOME? ____ . DO YOU HAVE ANY OTHER QUESTIONS OR CONCERNS NO . VITAL SIGNS WT 192 LBS, HT 63 IN, BMI 34.01 INDEX, BP 172/74 MM HG, HR 86 /MIN, RR 18 /MIN, TEMP 97.0 F, OXYGEN SAT % 91%, NA INITIALS SC 13:38, REVIEWED BY: BV. EXAMINATION GENERAL EXAMINATION: LUNGS:BILATERAL, BIBASILAR CRACKLES. HEART:HEART RATE REGULAR. MUSCULOSKELETAL:*, MUSCLE STRENGTH TESTING 3/5 BILAT.PALPATION: POSITIVE FOR PAIN OVER L/S SPINE. POSITIVE FOR PAIN OVER L/S PARSPINALS., TRIGGER POINTS:NOTED RIGHT LUMBAR PARASPINAL AND PIRIFORMIS.LOW THORACI ,UPPER LUMBAR INCISION WITH 2CM X 3CM CIRCULAR RAISED AREA.NON TENDER/NO REDDNESS. ASSESSMENTS POST LAMINECTOMY SYNDROME - M96.1 RESTLESS LEG SYNDROME - G25.81 TREATMENT POST LAMINECTOMY SYNDROME CONTINUE LYRICA CAPSULE, 200 MG, 1 CAPSULE, ORALLY, BID MDD2 REFILL HYDROCODONE-ACETAMINOPHEN TABLET, 10-325 MG, 1 TABLET NEEDED, ORALLY, Q6H PRN MDD4, 30 DAY(S), 120, REFILLS 0 START ROPINIROLE HCL TABLET, 0.25 MG, 1TO 2, ORALLY, BEFORE BEDTIME, 30 DAY(S), 60, REFILLS 1 NOTES: [employer] REGISTRY REVIEWED AND DEMONSTRATES COMPLLIANCE. (REF # [id number] ) BRINGS IN MEDICATIONS WHICH IS APPROPRIATE FOR WHAT WAS DISPENSED. RECENT URINE TOXICOLOGY REVIEWED. NO UNAUTHORIZED MEDICATIONS. NO ILLICIT SUBSTANCES AND PRESCRIBED MEDICATIONS WERE PRESENT. URINE TOX TODAY, RISKS AND BENEFITS OF NARCOTIC/OPIOD MEDICATIONS WERE REVIEWED WITH PATIENT - THIS INCLUDES BUT IS NOT LIMITED TO RISK OF DEPENDANCE/DEVELOPMENT OF ADDICTION, MOOD DISTURBANCE AND DEPRESSION, OSTEOPOROSIS, HORMONAL AND LABIDAL CHANGES, RESPIRATORY DEPRESSION AND . PATIENT IS ADVISED NOT TO DRIVE OR DRINK ALCOHOL WHILE ON THESE MEDICATIONS, [facility] NARCOTIC AGREEMENT WAS UPDATEDAND SIGNED TODAY BY THE PATIENT. SEE ATTACHED DOCUMENT FOR FULL DETAILS; SPECIFIC ISSUES WERE REVIEWED: 1) KEEP PAIN MEDS IN THEIR ORIGINAL BOTTLES AND ANY WEEKLY PLANNERS ARE TO BE BROUGHT TO THE PAIN CENTER AT EVERY VISIT. 2) THE PATIENT IS NOT TO INCREASE DOSING OR TIMING OF THEIR PAIN MEDICATION WITHOUT SPECIFIC DIRECTION OF THEIR PAIN CENTERPROVIDER (NOT ER OR OTHER PROVIDERS). 3) ALL PAIN MEDS ARE TO BE KEPT SECURED, IN A LOCKED BOX. 4) NO PAIN MEDS ARE TO BE SHARED WITH ANY OTHER PERSON FOR ANY REASON. 5) NO PAIN MEDS MAY BE TAKEN FROM ANY FRIENDS OR RELATIVES FOR ANY REASON 6) NO MEDS OR SUBSTANCES WHICH ARE NOT LEGAL ARE TO BE USED- NO MARIJUANA, NO COCAINE, AMPHETAMINES, HEROIN, OR OTHERS ARE EVER TO BE USED. 7)URINE TESTING IS DONE TO ACCOUNT FOR MEDS AND SUBSTANCES BEING TAKEN AND WILL BE DONE RANDOMLY. PROCEDURE CODES FA211 ESTABILISHED PATIENT [facility] CHARGE DISPOSITION & COMMUNICATION FOLLOW UP 3 MONTHS ELECTRONICALLY SIGNED BY MILAD BUENO ON 07/03/2018 AT 02:11 PM EST DISCLAIMER : THIS IS A VISIT SUMMARY EXTRACTED FROM THE [employer] ([employer] CHART. IT IS NOT A COPY OF THE [employer] PROGRESS NOTE. ALINE
== END ==
LOC: M PAIN 13:30
PROVIDERS: ATTEND Nurse Practitioner Family
DX: M96.1 Postlaminectomy syndrome, not elsewhere classified (principal); G25.81 Restless legs syndrome; I50.9 Heart failure, unspecified; E11.9 Type 2 diabetes mellitus without complications; I11.0 Hypertensive heart disease with heart failure; M19.90 Unspecified osteoarthritis, unspecified site; E78.00 Pure hypercholesterolemia, unspecified; F17.210 Nicotine dependence, cigarettes, uncomplicated; Z90.710 Acquired absence of both cervix and uterus; E66.09 Other obesity due to excess calories; Z68.34 Body mass index [BMI] 34.0-34.9, adult; Z79.82 Long term (current) use of aspirin; Z79.4 Long term (current) use of insulin; Z86.79 Personal history of other diseases of the circulatory system

== ENCOUNTER 2018-10-24 14:55 | Inpatient (IN) | payer MEDICARE, MEDICAID ==
[~2018-10-24] VITALS: Ht 157.5 cm; Wt 83.7 kg
[~2018-10-24 14:55] MED LIST changes: -/DULO30CA; -/DULO30CA OR; -/ESOM40CA; -/INSU7030; -/INSU7030 SC; +ASPI-1 PO; +ASPI-255 PO; -ASPI1TAB PO; -ASPI325T PO; -ASPI325T25 PO; +ASPI81TA26 PO; -CRES20TA PO; +CRES20TA2 PO; +CYMB1CAP5; +CYMB1CAP5 OR; -DULO30CA PO; +DULO30CA9 PO; +GLYB-147 PO; -GLYB5TA PO; +GUAI100L6 PO; -GUAI100S27 PO; +METO1TAB63 PO; -METO25TAB PO; +NEXI1CAP3; +NOVO1INJ4; +NOVO1INJ4 SC; +PRED-351 PO; -PRED10TA PO
[2018-10-24] MEDS ORDERED: CVS10CAP7 PO (16:01)
[2018-10-24] MEDS ORDERED: NYAM10003 TOP (16:01)
[2018-10-24] MEDS ORDERED: ACET-683 PO (16:01)
[2018-10-24] MEDS ORDERED: REQU1TAB14 PO (16:01)
[2018-10-24] MEDS ORDERED: SPIR1CAP INH (16:01)
--- NOTE | 2018-10-24 16:01 | REP ---
Clinical: Cough and dyspnea. Comparison: 03/06/2018. Findings: Stable cardiomegaly and diffuse chronic changes are appreciated. Mild pulmonary vascular congestion cannot be excluded and requires clinical correlation. No focal consolidation or effusion. No pneumothorax. Skeletal structures intact. Impression: Stable cardiomegaly and stable chronic changes. Evaluation is limited by technique and mild pulmonary venous congestion cannot be excluded. Electronically Signed by Jose Briggs MD 10/24/2018 03:53 P
[2018-10-24] MEDS ORDERED: XALA0.007 OU (16:03)
[2018-10-24] MEDS ORDERED: REST0.05 OU (16:03)
[2018-10-24 16:20] LABS: BASO # 0.1 10^3/uL (0.0-0.2); BASO % 0.3 % (0.0-1.0); HEMATOCRIT 43.8 % (36.0-47.0); HEMOGLOBIN 13.5 g/dl (12.0-15.5); LYMPH # 1.5 10^3/uL (1.5-4.5); LYMPH % 7.2 % (24.0-44.0); MEAN CORPUSCULAR HEMOGLOBIN 24.4 pg (27.0-33.0); MEAN CORPUSCULAR HGB CONC 30.8 g/dl (32.0-36.5); MEAN CORPUSCULAR VOLUME 79.1 fl (80.0-96.0); MONO # 0.6 10^3/uL (0.0-0.8); MONO % 3.2 % (0.0-5.0); NEUTROPHILS % 88.7 % (36.0-66.0); PLATELET COUNT, AUTOMATED 207 10^3/uL (150-450); RED BLOOD COUNT 5.54 10^6/uL (4.00-5.40); WHITE BLOOD COUNT 20.3 10^3/uL (4.0-10.0)
[2018-10-24 16:29] LABS: INR 0.94; PROTHROMBIN TIME 12.7 SECONDS (12.1-14.4)
[2018-10-24 16:50] LABS: ALBUMIN 3.6 GM/DL (3.2-5.2); ALT/SGPT 18 U/L (12-78); BILIRUBIN,DIRECT < 0.1 MG/DL (0.0-0.2); BILIRUBIN,TOTAL 0.4 MG/DL (0.2-1.0); BLOOD UREA NITROGEN 26 MG/DL (7-18); CALCIUM LEVEL 9.5 MG/DL (8.8-10.2); CARBON DIOXIDE LEVEL 29 MEQ/L (21-32); CHLORIDE LEVEL 104 MEQ/L (98-107); CPK CREATINE PHOSPHOKINASE 77 U/L (26-192); CREATININE FOR GFR 1.35 MG/DL (0.55-1.30); GLOMERULAR FILTRATION RATE 40.9 (>39); GLUCOSE, FASTING 86 MG/DL (70-100); MB/CK RELATIVE INDEX 4.29 (< OR =4); NT-PRO BNP 1439 PG/ML (<125); POTASSIUM SERUM 4.2 MEQ/L (3.5-5.1); SODIUM LEVEL 140 MEQ/L (136-145); THYROXINE (T4) 6.5 UG/DL (4.5-12.0); TROPONIN I 0.04 NG/ML (< 0.10)
[2018-10-24] MEDS ORDERED: ISOVUE-370 76% 100ML VIAL (Q9967) As Ordered ONE (17:50)
[2018-10-24] MEDS ORDERED: FUROSEMIDE 40 MG/4 ML VIAL (J1940) IV ONE (18:15)
--- NOTE | 2018-10-24 18:18 | REP ---
Clinical: Acute chest pain. Technique: Axial contrast enhanced images from the thoracic inlet to the upper abdomen using 100 ml Isovue 370 intravenous contrast material with coronal and sagittal re-formations. Comparison: Multiple examinations through 03/18/2016 Findings: Satisfactory enhancement of the pulmonary vasculature is achieved and no filling defects are identified to suggest pulmonary embolus. Cardiomegaly is appreciated with chronic pulmonary vascular congestion. Atherosclerotic changes to the thoracic aorta and coronary arteries noted. No evidence for aortic aneurysm or dissection. No pericardial effusion. The lung shelton demonstrate diffuse chronic fibrosis and scarring along with chronic stable mass in the medial left apex unchanged through 2016. Mediastinal adenopathy is also identified and unchanged. No acute consolidation, effusion, or atelectasis. Impression: 1. No evidence for pulmonary embolus. 2. Cardiomegaly and pulmonary vascular congestion. 3. No obvious further acute mediastinal or pleuroparenchymal process appreciated. 4. Chronic scattered fibrosis/scarring and adenopathy as well as chronic stable left apical mass all of which remains stable through 03/18/2016. Electronically Signed by Jose Briggs MD 10/24/2018 06:10 P
[2018-10-24] MEDS ORDERED: FUROSEMIDE 100 MG/10 ML VIAL (J1940) IV ONE (18:30)
[2018-10-24] MEDS ORDERED: INCR1INH INH (18:38)
[2018-10-24] MEDS ORDERED: FURO40TA2 PO (18:38)
[2018-10-24] MEDS ORDERED: RANI150T14 PO (18:38)
[2018-10-24] MEDS ORDERED: NITROGLYCERIN 0.4 MG SUBL TABLET SL PRN (20:15)
[2018-10-24] MEDS ORDERED: IPRATROPIUM 0.5MG/ALBUTEROL 2.5MG INH SOL UD 3ML (DUONEB)(J7620) NEB PRN (20:15)
[2018-10-24] MEDS: HumaLOG INSULIN (NovoLOG) PER UNIT SC SCH (21:00)
[2018-10-24] MEDS: ASPIRIN ENTERIC 325 MG TAB PO SCH (21:00)
[2018-10-24] MEDS: rOPINIRole 0.25 MG TAB(REQUIP) PO SCH (21:00)
--- NOTE | 2018-10-24 21:10 | ECGEPIP ---
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
[2018-10-24] MEDS ORDERED: GLUCOSE 4 GM CHEW TABLET PO PRN (22:00)
[2018-10-24] MEDS ORDERED: GLUCAGON FOR INJ 1 MG VIAL (J1610) SC PRN (22:00)
[2018-10-24] MEDS ORDERED: DEXTROSE 50% 50 ML SYRINGE IV PRN (22:00)
--- NOTE | 2018-10-24 22:08 | HPEPDOC ---
General Date of Admission 10/24/2018 Date of Service: October 24, 2018 Other Providers Primary care provider: Kurt Stanley Attending Physician: SARA ESPINOZA MD Chief Complaint The patient is a 73-year-old female admitted with a reason for visit of Fluid Retention/Sob. Source: Patient, Family, Old records Exam Limitations: No limitations Timing/Duration: Week(s) Associated Symptoms: Cough, Shortness of breath, Weakness History of Present Illness Ms. Julio is a 73-year-old female who presents to [facility]'s Emergency Department with shortness of breath. Patient is accompanied by her daughter and granddaughter. Patient states that for about the last week she has been having increasing shortness of breath. At baseline she is able to shower and wash dishes, but that starting last week she was having increasing shortness of breath and only able to walk about 25 feet. She does wear oxygen, but had to increase it from 2L to 3L and also started wearing it at night. Her daughter checked her oxygen saturation today and it was in the 70s. Associated with the shortness of breath is a cough that is productive of yellow/clear sputum. Patient denies sick contacts or recently being sick. She further denies fevers, night sweats, chills. She has also noted increased swelling of her ankles and lower legs up to her knees. However, even with daily weights she has not noticed any change in her weight. Her "dry weight" is about 180 pounds. She states that she sleeps with one pillow at night and that has not varied over this last week. She does not wake up gasping for air. She is experiencing chest pain on the right side of her chest that is reproducible with palpation. Patient also experiences occasional episodes of food getting stuck (and points to the center of her chest), but states that it is not difficulty to swallow or painful to swallow. She has had diabetes for 30+ years and has noticed a decrease, over the last week, or oral intake with abdominal bloating. Emergency Department evaluation included a chest x-ray which was personally reviewed by myself and revealed an enlarged heart with pulmonary vascular congestion without focal consolidations. A CT chest angiogram was also done which was personally reviewed by myself and revealed an enlarged heart, emphysematous changes, pulmonary vascular congestion without focal consolidations. A pro-BNP level was 1439, neutrophilic leukocytosis of 20.3, baseline renal function with creatinine of 1.35. Lactic acid of 1.2. Pending blood cultures. Hospitalist service was consulted and patient was admitted for further medical management. Home Medications Scheduled Acetaminophen (Acetaminophen) 500 Mg Tablet, 1,000 MG PO QHS, (Reported) Allopurinol (Zyloprim) 300 Mg Tab, 300 MG PO DAILY, (Reported) Amlodipine Besylate (Amlodipine Besylate) 10 Mg Tab, 10 MG PO DAILY, (Reported) Aspirin (Aspirin EC) 325 Mg Tabec, 325 MG PO QHS, (Reported) Calcitriol (Calcitriol) 0.25 Mcg Cap, 0.25 MCG PO 3XW, (Reported) TAKES TUESDAY, TUESDAY AND TUESDAY MORNINGS Cyclosporine (Restasis) 0.05% Droperette, 1 DROP OU BID, (Reported) Duloxetine Hcl (Duloxetine HCl) 60 Mg Cap, 60 MG PO BID, (Reported) Esomeprazole Magnesium (Nexium) 40 Mg Cap, 40 MG PO DAILY, (Reported) Furosemide (Furosemide) 40 Mg Tab, 80 MG PO DAILY, (Reported) Insulin Human NPH (Novolin N) 1 Ml Susp, 80 UNITS SC BID, (Reported) Latanoprost (Xalatan) 0.005% 2.5ML Drops, 1 DROP OU QHS, (Reported) Magnesium Oxide (Magnesium Oxide) 400 Mg Tab, 400 MG PO BID, (Reported) Melatonin (Melatonin) 10 Mg Capsule, 10 MG PO QHS, (Reported) Prednisone (Prednisone) 10 Mg Tab, 10 MG PO DAILY, (Reported) Pregabalin (Lyrica) 200 Mg Cap, 200 MG PO BID, (Reported) Ranitidine HCl (Ranitidine HCl) 150 Mg Tablet, 1 TAB PO DAILY, (Reported) Ropinirole HCl (Requip) 0.25 Mg Tablet, 0.5 MG PO QHS, (Reported) Rosuvastatin Calcium (Crestor) 20 Mg Tab, 20 MG PO QHS, (Reported) Spironolactone (Spironolactone) 25 Mg Tab, 25 MG PO QHS, (Reported) Umeclidinium [place] (Incruse Ellipta) 62.5 Mcg Blst.w.dev, 1 PUFF INH DAILY, (Reported) Scheduled PRN Albuterol Sulf (Albuterol Sulfate) 2.5 Mg/3 Ml Nebu, 2.5 MG INH Q4H PRN for SHORTNESS OF BREATH, (Reported) Albuterol Sulfate (Ventolin Hfa) 108 Mcg/Act Aer, 2 PUFFS INH Q4H PRN for SHORTNESS OF BREATH, (Reported) Furosemide (Furosemide) 40 Mg Tablet, 80 MG PO DAILY PRN for SWELLING, (Repo rted) TAKES IN THE AFTERNOON Hydrocodone/Acetaminophen (Hydrocodone-Acetamin 10-325 mg) 1 Tab Tab, 1 TAB PO Q6H PRN for PAIN, (Reported) Nitroglycerin (Nitrostat) 0.4 Mg Subl, 0.4 MG SL NITRO PRN for CHEST PAIN, (Reported) Nystatin (Nyamyc) 15 Gm Powder, 1 DOSE TOP BID PRN for REDNESS/IRRITATION, (R eported) APPLY TO UNDER BREASTS AND GROIN Allergies Coded Allergies: TAPE (Verified Allergy, Unknown, 10/25/18) GME ATTESTATION My faculty preceptor for this patient encounter was physically present during the encounter and was fully available. All aspects of the patient interview, examination, medical decision making process, and medical care plan development were reviewed and approved by the faculty preceptor. The faculty preceptor is aware and concurs with the plan as stated in the body of this note and will attest to such by his/her cosignature. Past Medical History Medical History 1. Emphysematous COPD 2. Gout 3. HTN 4. CAD 5. Dry eye 6. Depression 7. CHF, diastolic, EF 65% 8. GERD 9. DM 10. Diabetic neuropathy 11. CBP 12. Glaucoma 13. Insomnia 14. RLS 15. DLP Surgical History 1. Left knee joint debridement 2. B/L blepharoplasty 3. Right distal claviculectomy, acromioplasty, bursectomy 4. Cholecystecotmy 5. SHAYLA with B/L OOP 6. EGD 7. Colonoscopy 8. Trigger point injections 9. Multiple back steroid injections 10. Right cataract 11. L3-4 laminectomy and decompression 12. Right breast lesion excision 13. Bronchoscopy Family History Father: , 49, CHF Mother: , 72, CHF Siblings - Sister: Alive, 72 - Brothers: x2, alive, 63, 90 - Sister: , 60s, liver cancer - Sister: , 63, pulmonary HTN, COPD, DM - Brother: , 56, MS - Brother: , 78, CHF Social History * Smoker: current smoker (1 PPD, started at age 35) Alcohol: Denies Drugs: denies Patient lives independently. . 5 children, 1 at age 47 from endocarditis. No pets in the home. 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 No EtOH, illicit drug use. A-FIB/CHADSVASC A-FIB History Current/History of A-Fib/PAF?: No Review of Systems Constitutional: Reports: Weakness (B/L hands); Denies: Chills, Fever, Night Sweats, Weight Loss Eyes: Denies: Vision change, Conjunctivae inflammation, Eyelid inflammation ENT: Denies: Head Aches, Dysphagia, Sinus Congestion, Post Nasal Drip, Sore Throat, Epistaxis, Other Symptoms (describes food getting stuck in the center of her chest) Skin: Denies: Rash, Lesions, Jaundice, Bruising Pulmonary: Reports: Dyspnea (with requiring increasing oxygen requirements), Cough (productive of yellow/clear sputum), Pleuritic Chest Pain (right sided) Cardiovascular: Reports: Chest Pain (pleuritic, right sided), Edema (B/L LE up to the knees), Lt Headedness (without falls); Denies: Palpitations, Orthopnea, Paroxysmal Noc. Dyspnea Gastrointestinal: Reports: Abdominal Pain, Diarrhea (chronic, unsure of etiology); Denies: Nausea, Vomiting, Constipation, Melena, Hematochezia Genitourinary: Denies: Dysuria, Frequency, Incontinence, Hematuria, Retention Hematologic: Reports: Bruising; Denies: Bleeding Excessively, Petecchia Endocrine: Denies: Polydipsia, Polyphagia Musculoskeletal: Reports: Neck Pain, Back Pain, Other Symptoms (elbow pain) Neurological: Reports: Weakness (B/L hands), Numbness (B/L hands) Physical Examination General Exam: Positive: Alert, Cooperative Eye Exam: Positive: PERRLA, Conjunctiva & lids normal, EOMI, Other Eye Symptoms (wears spectacles); Negative: Sclera icteric, Ptosis ENT Exam: Positive: Atraumatic, Mucous membr. moist/pink, Pharynx Normal, Tongue Midline, Nares Patent; Negative: Pharyngeal Edema Neck Exam: Positive: Supple, JVD (+3 cm above the sternal angle), +2 carotid pulse wo bruit; Negative: thyromegaly, Lymphadenopathy Chest Exam: Positive: Rales, Rhonchi, Diminished; Negative: Clear to auscultation, Normal air movement, Wheezing Heart Exam: Positive: Rate Normal, Regular Rhythm, Normal S1, Normal S2; Negative: Gallops, Murmurs, Rubs Telemetry: Positive: Sinus, PACs, Other Telemetry: (leftward axis, LAFB) Abdomen Exam: Positive: BS Hypoactive, Soft, Other (stretch kat, midline healed abdominal surgical incision); Negative: Tenderness, Hepatospenomegaly, Mass, Hernia Extremity Exam: Positive: Edema (+2 pitting edema up to the leve of the B/L tibial tuberosities), Normal pulses, Swelling; Negative: Clubbing, Cyanosis, Tenderness Skin Exam: Positive: Other skin issue (many ecchymoses noted on B/L UE) Neuro Exam: Positive: Normal Speech, Cranial Nerves 3-12 NL Psych Exam: Positive: Oriented x 3 Other physical findings 1. Portable chest x-ray on 10/24/2018 - Stable cardiomegaly and stable chronic changes. Evaluation is limited by technique and mild pulmonary venous congestion cannot be excluded. 2. CT chest angiogram on 10/24/2018 - No evidence for pulmonary embolus. Cardiomegaly and pulmonary vascular congestion. No obvious further acute mediastinal or pleuroparenchymal process appreciated. Chronic scattered fibrosis/scarring and adenopathy as well as chronic stable left apical mass all of which remains stable through 03/18/2016. Vital Signs Vital Signs Date Time Temp Pulse Resp B/P (MAP) Pulse Ox O2 Delivery O2 Flow Rate FiO2 10/24/18 20:01 210/86 (127) 10/24/18 20:00 82 91 10/24/18 19:00 19 Nasal Cannula 4.0 10/24/18 14:55 97.7 Height (in): 62 Weight (kg): 85 BMI (kg): 34.3 Laboratory Data Labs 24H Laboratory Tests 2 10/24/18 15:51: Immature Granulocyte % (Auto) 0.6, White Blood Count 20.3H, Red Blood Count 5.54H, Hemoglobin 13.5, Hematocrit 43.8, Mean Corpuscular Volume 79.1L, Mean Corpuscular Hemoglobin 24.4L, Mean Corpuscular Hemoglobin Concent 30.8L, Red Cell Distribution Width 18.8H, Platelet Count 207, Neutrophils (%) (Auto) 88.7H, Lymphocytes (%) (Auto) 7.2L, Monocytes (%) (Auto) 3.2, Eosinophils (%) (Auto) 0.0, Basophils (%) (Auto) 0.3, Neutrophils # (Auto) 18.0H, Lymphocytes # (Auto) 1.5, Monocytes # (Auto) 0.6, Eosinophils # (Auto) 0.0, Basophils # (Auto) 0.1, Nucleated Red Blood Cells % (auto) 0.0, Prothrombin Time 12.7, Prothromb Time International Ratio 0.94, Anion Gap 7L, Glomerular Filtration Rate 40.9, Lactic Acid Level 1.2, Calcium Level 9.5, Aspartate Amino Transf (AST/SGOT) 20, Alanine Aminotransferase (ALT/SGPT) 18, Alkaline Phosphatase 80, Total Bilirubin 0.4, Direct Bilirubin < 0.1, Total Creatine Kinase 77, Creatine Kinase MB 3.0, Creatine Kinase MB Relative Index 4.29H, Troponin I 0.04, LG-Msq-[id number]-Type Natriuretic Peptide 1439H, Total Protein 7.0, Albumin 3.6, Albumin/Globulin Ratio 1.06, Thyroid Stimulating Hormone (TSH) 2.080, Thyroxine (T4) 6.5 CBC/BMP Laboratory Tests 10/24/18 15:51 Red Blood Count 5.54 H, Mean Corpuscular Volume 79.1 L, Mean Corpuscular Hemoglobin 24.4 L, Mean Corpuscular Hemoglobin Concent 30.8 L, Red Cell Distribution Width 18.8 H, Neutrophils (%) (Auto) 88.7 H, Lymphocytes (%) (Auto) 7.2 L, Monocytes (%) (Auto) 3.2, Eosinophils (%) (Auto) 0.0, Basophils (%) (Auto) 0.3, Neutrophils # (Auto) 18.0 H, Lymphocytes # (Auto) 1.5, Monocytes # (Auto) 0.6, Eosinophils # (Auto) 0.0, Basophils # (Auto) 0.1 Microbiology Microbiology 10/24/18 Blood Culture, Received Pending 10/24/18 Blood Culture, Received Pending Plan / VTE VTE Prophylaxis Ordered?: Yes (Heparin 5,000 units SQ Q8H) Plan Plan 1. Diastolic CHF exacerbation, EF 65% (2018 echocardiogram) - Pro-BNP 1439. Hold home dose of Lasx. Start Lasix 60mg IV Q8H. Continue Spironolactone 25mg PO QHS. No BB on reconciled home medication list (likely due to patient's underlying COPD). BB are not initiated during CHF exacerbation. Instructed patient to elevated B/L lower extremities. TEDs and sequentials ordered. Patient's activity as tolerated. ABG ordered. 2. COPD, emphysematous - Continue Spiriva. Started Duoneb's scheduled and as needed. Continue low dose Prednisone. No clinical or imaging findings consistent with infective source. Unremarkable lactic acid. Afebrile. Will monitor leukocytosis with daily labs. Sputum culture and gram stain ordered. Oxygen therapy with titration orders to maintain oxygenation 88-92%. Respiratory panel ordered. Continuous pulse oximetry. Patient continues to smoke. Smoking cessation counseling ordered. 3. Neutrophilic leukocytosis - Afebrile, not tachycardiac, not HoTN. Respiratory panel and sputum culture with gram stain ordered. No antibiotics at this time. If patient becomes febrile will consider addition of antibiotic regimen. Monitor for the time. Daily labs. 4. HTN - Continue Amlodipine, Spironolactone. 5. CAD - Continue ASA, Crestor, Nitroglycerin. 6. DM with diabetic neuropathy - Continue NPH insulin 80 unit SQ BID, FBSB AC/HS, SSI AC/HS, hypoglycemic protocol. Continue Lyrica. 7. CKD-III - Stable. Creatinine at baseline. 8. RLS - Continue Requip. 9. DLP - Continue Crestor. 10. GERD - Continue Protonix. Adjusted Ranitidine to Famotidine since Ranitidine is not on formulary. 11. CBP - Adjusted patient's Hydrocodone to Oxycodone since Hydrocodone is not on formulary. Continue Tylenol. 12. Gout - Continue Allopurinol. 13. Depression - Continue Cymbalta. 14. Glaucoma - Continue Latanoprost. Disposition Admit: Med/Surg Anticipated hospitalization: 2 nights Attending: Diet: Continue Current Activity: Continue Current Therapy: PT Respiratory: Increase Oxygen Diagnostics: Check Labs, Repeat Labs in AM, Obtain Cultures Anticipated Discharge: Home GRACY VANG DO October 24, 2018 22:08 SARA ESPINOZA MD October 25, 2018 06:09
[2018-10-24] MEDS: DULoxetine 30 MG CAP (CYMBALTA) PO SCH (22:26)
[2018-10-24] MEDS: SPIRONOLACTONE 25 MG TAB PO SCH (22:26)
[2018-10-24] MEDS: ROSUVASTATIN 10 MG TAB (CRESTOR) PO SCH (22:26)
[2018-10-24] MEDS: MAGNESIUM OXIDE 400 MG TAB (MAG-OX) PO SCH (22:27)
[2018-10-24] MEDS: PREGABALIN 100 MG CAP (LYRICA) PO SCH (22:27)
[2018-10-24] MEDS: ACETAMINOPHEN 500 MG TAB PO SCH (22:28)
[2018-10-24] MEDS: HEPARIN SOD (PORCINE) 5000 UNITS/ML VIAL SC SCH (22:29)
[2018-10-24 22:35] LABS: ABG BASE EXCESS 2.7 (-2.0-2.0); ABG HCO3 26.7 MEQ/L (22.0-26.0); ABG O2 SATURATION 96.9 % (95.0-99.0); ABG PARTIAL PRESSURE O2 89.9 mmHg (75.0-100.0); ABG STANDARD HCO3 26.8 MEQ/L (22.0-26.0); ABG TOTAL CO2 27.9 MEQ/L (23.0-31.0); ABG pH (ARTERIAL) 7.453 UNITS (7.350-7.450)
[2018-10-24] MEDS: oxyCODONE 5MG TAB PO PRN (22:35)
[2018-10-25] MEDS: LATANOPROST 0.005% OPHTH SOLN 2.5 ML OU SCH ×2 (01:00→21:51)
[2018-10-25] MEDS: HumuLIN N INSULIN (NovoLIN N) PER UNIT SC SCH ×3 (01:00→21:51)
[2018-10-25 01:01] LABS: MB/CK RELATIVE INDEX 3.47 (< OR =4); TROPONIN I 0.05 NG/ML (< 0.10)
[2018-10-25] MEDS: IPRATROPIUM 0.5MG/ALBUTEROL 2.5MG INH SOL UD 3ML (DUONEB)(J7620) NEB SCH ×4 (02:00→19:33)
[2018-10-25] MEDS: FUROSEMIDE 100 MG/10 ML VIAL (J1940) IV SCH ×3 (02:20→17:00)
[2018-10-25] MEDS: HEPARIN SOD (PORCINE) 5000 UNITS/ML VIAL SC SCH ×3 (06:12→20:29)
[2018-10-25 07:12] LABS: HEMATOCRIT 43.5 % (36.0-47.0); HEMOGLOBIN 13.2 g/dl (12.0-15.5); MEAN CORPUSCULAR HEMOGLOBIN 24.3 pg (27.0-33.0); MEAN CORPUSCULAR HGB CONC 30.3 g/dl (32.0-36.5); MEAN CORPUSCULAR VOLUME 80.1 fl (80.0-96.0); PLATELET COUNT, AUTOMATED 195 10^3/uL (150-450); RED BLOOD COUNT 5.43 10^6/uL (4.00-5.40); WHITE BLOOD COUNT 13.1 10^3/uL (4.0-10.0)
[2018-10-25 07:29] LABS: CALCIUM LEVEL 8.7 MG/DL (8.8-10.2); CREATININE FOR GFR 1.35 MG/DL (0.55-1.30); GLOMERULAR FILTRATION RATE 40.9 (>39); MB/CK RELATIVE INDEX 3.48 (< OR =4); POTASSIUM SERUM 3.4 MEQ/L (3.5-5.1); TROPONIN I 0.06 NG/ML (< 0.10)
[2018-10-25] MEDS: TIOTROPIUM INHALER/CAPSULE (SPIRIVA) INH SCH (07:30)
[2018-10-25] MEDS: HumaLOG INSULIN (NovoLOG) PER UNIT SC SCH ×4 (07:36→21:51)
[2018-10-25] MEDS: PREGABALIN 100 MG CAP (LYRICA) PO SCH ×2 (09:07→20:27)
[2018-10-25] MEDS: DULoxetine 30 MG CAP (CYMBALTA) PO SCH ×2 (09:07→20:28)
[2018-10-25] MEDS: FAMOTIDINE 20 MG TAB PO SCH (09:08)
[2018-10-25] MEDS: ALLOPURINOL 300 MG TAB PO SCH (09:09)
[2018-10-25] MEDS: PANTOPRAZOLE 40MG TAB (PROTONIX) PO SCH (09:09)
[2018-10-25] MEDS: amLODIPine 10 MG TAB PO SCH (09:09)
[2018-10-25] MEDS: MAGNESIUM OXIDE 400 MG TAB (MAG-OX) PO SCH ×2 (09:10→20:28)
[2018-10-25] MEDS: predniSONE 10 MG TAB PO SCH (09:10)
--- NOTE | 2018-10-25 13:31 | IPNPDOC ---
Text Note Date of Service The patient was seen on 10/25/18. NOTE SUBJECTIVE: Ms. Julio is seen at bedside rounds this morning, she is a little bit short of breath during conversation. She does state that this is a little bit bothersome for her. Otherwise patient denies chest pain, shortness breath, nausea, vomiting, fevers, chills. OBJECTIVE PHYSICAL EXAMINATION: VITAL SIGNS: Please see below. GENERAL: This is 73-year-old female appearing older than her stated age, she is laying in bed, she does appear to have conversational dyspnea and some shortness of breath during the physical examination, she is not using accessory muscles of respiration to breathe. She is mildly uncomfortable appearing due to this. HEENT: Moist mucous membranes, EOMI, minimal elevation in JVD CARDIOVASCULAR: Normal S1 and S2 although distant, no murmurs, rubs or gallops appreciated RESPIRATORY: Diffusely rhonchorous with crackles, no rales appreciated, wheezing diffusely throughout as well ABDOMINAL: Obese, NABS 4, no hepatosplenomegaly, no masses appreciated, no pain to palpation, no distention, no rebound rigidity or guarding EXTREMITIES: Trace bilateral lower extremity edema, no cyanosis or mottling NEUROLOGICAL: No focal neurologic deficits appreciated PSYCHOLOGICAL: [Appropriate] LABORATORY DATA, MICROBIOLOGY: Please see below. ASSESSMENT AND PLAN: This is a 73-year-old female who came to the emergency department with shortness of breath and found to be in CHF exacerbation PROBLEMS: 1. Shortness of breath secondary to CHF exacerbation -Unfortunately the patient on physical examination does still appear to be volume overloaded. She has responded well to current diuresis and has put out 1.5 L. We will continue the Lasix 60 mg IV every 8 hours right now. She is continued on spironolactone 25 mg. We will consider weaning her down on her diuretics tomorrow pending her respiratory status. She is on 3 L nasal cannula oxygenation which is her home O2 use, therefore we will not wean this down today. 2. COPD -This could also be contributing to her shortness of breath, we will continue with DuoNeb's and her Spiriva. She is maintained on low-dose prednisone. We'll hold off on antibiotics at this point time. Her white count improved today. She is afebrile. She did not present with an increased lactic acid. Sputum culture & gram stains are currently still pending. Respiratory panel pending. She continues on 3 L of oxygenation which is her current home dose. She does have blood cultures pending but do not suspect this is infectious in nature. 3. Hypertension Controlled, continue amlodipine and spironolactone 4. Coronary artery disease - stable, will continue aspirin, crestor and nitroglycerin 5. DM2 -Patient continues on consistent carb diet, NPH insulin 80 units subcutaneous twice a day, hypoglycemic protocol, sliding scale with FBSB AC/HS. 7. CKD-III -Continue to monitor, creatinine 1.35, this is her baseline. 8. RLS -C/w Requip 9. DLP - -c/w home statin 10. GERD - -c/w home protonix 11. CBP - -chronic for her, c/w home pain medication and Tylenol 12. Gout -c/w home allopurinol 13. Depression -stable c/w home medication Cymbalta Disposition, the patient is still fluid overloaded, we will continue with current Lasix therapy. VS,Fishbone, I+O VS, Fishbone, I+O Laboratory Tests 10/24/18 15:51 Red Blood Count 5.54 H, Mean Corpuscular Volume 79.1 L, Mean Corpuscular Hemoglobin 24.4 L, Mean Corpuscular Hemoglobin Concent 30.8 L, Red Cell Distri bution Width 18.8 H, Neutrophils (%) (Auto) 88.7 H, Lymphocytes (%) (Auto) 7.2 L, Monocytes (%) (Auto) 3.2, Eosinophils (%) (Auto) 0.0, Basophils (%) (Auto) 0.3, Neutrophils # (Auto) 18.0 H, Lymphocytes # (Auto) 1.5, Monocytes # (Auto) 0.6, Eosinophils # (Auto) 0.0, Basophils # (Auto) 0.1 10/25/18 06:53 Red Blood Count 5.43 H, Mean Corpuscular Volume 80.1, Mean Corpuscular H emoglobin 24.3 L, Mean Corpuscular Hemoglobin Concent 30.3 L, Red Cell Distribution Width 18.7 H, Calcium Level 8.7 L, Total Creatine Kinase 69 Vital Signs Date Time Temp Pulse Resp B/P (MAP) Pulse Ox O2 Delivery O2 Flow Rate FiO2 10/25/18 13:04 71 93 Nasal Cannula 4.0 10/25/18 13:00 167/77 (107) 10/25/18 11:00 98.1 18 I&O- Last 24 Hours up to 6 AM 10/25/18 06:00 Output Total 2300 ml Balance -2300 ml GME ATTESTATION GME ATTESTATION My faculty preceptor for this patient encounter was physically present during the encounter and was fully available. All aspects of the patient interview, examination, medical decision making process, and medical care plan development were reviewed and approved by the faculty preceptor. The faculty preceptor is aware and concurs with the plan as stated in the body of this note and will attest to such by his/her cosignature. ATTENDING NOTE I saw and evaluated the patient. I agree with the findings and plan of care as documented in the resident's note FELICIA REES DO October 25, 2018 13:31 EVERARDO FOUNTAIN MD Oct 28, 2018 12:21
[2018-10-25 15:21] VITALS: BP 177/85
[2018-10-25] MEDS: oxyCODONE 5MG TAB PO PRN (16:49)
[2018-10-25 17:28] VITALS: O2SAT 91
[2018-10-25] MEDS ORDERED: POTASSIUM CHLORIDE 10 MEQ SR TABLET PO ONE (17:30)
[2018-10-25] MEDS: SPIRONOLACTONE 25 MG TAB PO SCH (20:28)
[2018-10-25] MEDS: ROSUVASTATIN 10 MG TAB (CRESTOR) PO SCH (20:28)
[2018-10-25] MEDS: rOPINIRole 0.25 MG TAB(REQUIP) PO SCH (20:28)
[2018-10-25] MEDS: ASPIRIN ENTERIC 325 MG TAB PO SCH (20:28)
[2018-10-25] MEDS: ACETAMINOPHEN 500 MG TAB PO SCH (20:29)
[2018-10-25 22:00] VITALS: BP 159/78
[2018-10-26] MEDS: oxyCODONE 5MG TAB PO PRN ×3 (01:52→20:40)
[2018-10-26 02:25] VITALS: O2SAT 92
[2018-10-26] MEDS: IPRATROPIUM 0.5MG/ALBUTEROL 2.5MG INH SOL UD 3ML (DUONEB)(J7620) NEB SCH ×4 (02:30→19:41)
[2018-10-26] MEDS: HEPARIN SOD (PORCINE) 5000 UNITS/ML VIAL SC SCH ×3 (05:13→20:36)
[2018-10-26 06:00] VITALS: BP 151/70
[2018-10-26 06:34] LABS: HEMATOCRIT 42.7 % (36.0-47.0); HEMOGLOBIN 12.8 g/dl (12.0-15.5); MEAN CORPUSCULAR HEMOGLOBIN 23.7 pg (27.0-33.0); MEAN CORPUSCULAR VOLUME 79.2 fl (80.0-96.0); PLATELET COUNT, AUTOMATED 198 10^3/uL (150-450); RED BLOOD COUNT 5.39 10^6/uL (4.00-5.40); WHITE BLOOD COUNT 12.4 10^3/uL (4.0-10.0)
[2018-10-26 06:59] LABS: CALCIUM LEVEL 8.6 MG/DL (8.8-10.2); CREATININE FOR GFR 1.18 MG/DL (0.55-1.30); GLOMERULAR FILTRATION RATE 47.8 (>39); POTASSIUM SERUM 3.5 MEQ/L (3.5-5.1)
[2018-10-26] MEDS: HumaLOG INSULIN (NovoLOG) PER UNIT SC SCH ×4 (07:30→21:53)
[2018-10-26] MEDS: HumuLIN N INSULIN (NovoLIN N) PER UNIT SC SCH ×2 (08:12→21:54)
[2018-10-26 08:19] LABS: TROPONIN I 0.04 NG/ML (< 0.10)
[2018-10-26] MEDS: MAGNESIUM OXIDE 400 MG TAB (MAG-OX) PO SCH ×2 (09:29→20:35)
[2018-10-26] MEDS: PREGABALIN 100 MG CAP (LYRICA) PO SCH ×2 (09:30→20:35)
[2018-10-26] MEDS: FAMOTIDINE 20 MG TAB PO SCH (09:30)
[2018-10-26] MEDS: PANTOPRAZOLE 40MG TAB (PROTONIX) PO SCH (09:30)
[2018-10-26] MEDS: predniSONE 10 MG TAB PO SCH (09:30)
[2018-10-26] MEDS: DULoxetine 30 MG CAP (CYMBALTA) PO SCH ×2 (09:30→20:34)
[2018-10-26] MEDS: ALLOPURINOL 300 MG TAB PO SCH (09:30)
[2018-10-26] MEDS: amLODIPine 10 MG TAB PO SCH (09:33)
[2018-10-26] MEDS: FUROSEMIDE 100 MG/10 ML VIAL (J1940) IV SCH ×2 (09:53→18:05)
[2018-10-26] MEDS: TIOTROPIUM INHALER/CAPSULE (SPIRIVA) INH SCH (12:20)
[2018-10-26 14:00] VITALS: BP 148/72
[2018-10-26] MEDS ORDERED: LASI80TA3 PO (14:47)
[2018-10-26] MEDS ORDERED: LASI20TA3 PO (14:47)
--- NOTE | 2018-10-26 16:05 | ECHO ---
DATE OF STUDY: 10/25/2018 REFERRING PHYSICIAN: Dr. Mohinder Loera INDICATION: Dyspnea. HEIGHT: 158 cm WEIGHT: 85 kg 2-D MEASUREMENTS: Left atrium: 3.2 cm Aortic root: 2.8 cm Ventricular septum: 1.21 cm Posterior wall: 1.24 cm Left ventricle diastole: 4.5 cm Aortic annulus: 1.1 cm Inferior vena cava: 2.1 cm (more than 50% respiratory variation) DOPPLER MEASUREMENTS: Aortic valve velocity: 160 cm/s LVOT velocity: 125 cm/s LVOT VTI: 28.3 cm Mitral E velocity: 65.2 cm/s Mitral A velocity: 102 cm/s Mitral deceleration time: 271 ms Very mild tricuspid regurgitation. Estimated right ventricle systolic pressure 65-70 mmHg No pulmonic regurgitation. MITRAL ANNULAR TISSUE DOPPLER: E prime septal: 4.2 cm/s E prime lateral: 5.1 cm/s DESCRIPTION: Rhythm was sinus. This was a moderately, technically difficult echocardiogram. No pericardial effusion. CONCLUSIONS: 1. Suggestive of severe elevation of estimated right ventricular systolic pressure (65-70 mmHg assuming a right atrial pressure of 5-10 mmHg). Normal right ventricle size and systolic function. Right atrium appeared in normal size. 2. Slight concentric left ventricular hypertrophy. Normal regional LV wall motion and wall thickening. Normal LV systolic function. Left ventricular ejection fraction (LVEF) 75% by visual estimate. Grade 1 LV diastolic dysfunction (impaired relaxation filling pattern). Normal left atrial size. 3. Mild aortic valve sclerosis of a 3-cusp aortic valve. No aortic regurgitation. 4. Mild mitral annular calcification. No mitral regurgitation. 5. No pericardial effusion.
--- NOTE | 2018-10-26 16:19 | IPNPDOC ---
Text Note Date of Service The patient was seen on 10/26/18. NOTE SUBJECTIVE: Ms. Julio is seen at bedside rounds this morning, she is much i mproved in her breathing on bedside rounds. She states she feels better as well. She has no CP, but does complain of some productive cough, no n/v or fevers reported. OBJECTIVE PHYSICAL EXAMINATION: VITAL SIGNS: Please see below. GENERAL: This is 73-year-old female appearing older than her stated age, she is sitting in her bedside chair, she appears comfortable and NAD HEENT: Moist mucous membranes, EOMI, no elevation in JVD CARDIOVASCULAR: Normal S1 and S2 although distant, no murmurs, rubs or gallops appreciated RESPIRATORY: diminished throughout, no rales, no rhonchi, some diffuse crackles at bibasilar lung [place] ABDOMINAL: Obese, NABS 4, no hepatosplenomegaly, no masses appreciated, no pain to palpation, no distention, no rebound rigidity or guarding EXTREMITIES: Trace bilateral lower extremity edema but this is improved today as well, no cyanosis or mottling NEUROLOGICAL: No focal neurologic deficits appreciated PSYCHOLOGICAL: Appropriate affect LABORATORY DATA, MICROBIOLOGY: Please see below. ASSESSMENT AND PLAN: This is a 73-year-old female who came to the emergency depa rtment with shortness of breath and found to be in CHF exacerbation PROBLEMS: 1. Shortness of breath secondary to CHF exacerbation -She seems more comfortable today, not as labored as she was yesterday, she is definitely improved. She has responded well to current diuresis and has put out 2.6 L. She is continued on spironolactone 25 mg. She is continued on Lasix 60 mg BID. We will consider weaning her down on her diuretics tomorrow.She did have an ECHO performed and we are awaiting results. pending her respiratory status. She is on 2 L nasal cannula oxygenation, her home O2 is 3L. 2. COPD -This could also be contributing to her shortness of breath, continue with DuoNeb's and her Spiriva. She is maintained on low-dose prednisone. Do not believe she needs antibiotics at this time. She is afebrile. She did not present with an increased lactic acid. Sputum culture pending, resp panel is negative. Blood cx negative for 24 hours. 3. Hypertension Controlled, continue amlodipine and spironolactone 4. Coronary artery disease - stable, will continue aspirin, crestor and nitroglycerin 5. DM2 -Patient continues on consistent carb diet, NPH insulin 80 units subcutaneous twice a day, hypoglycemic protocol, sliding scale with FBSB AC/HS. 7. CKD-III -Continue to monitor, creatinine 1.35, this is her baseline. 8. RLS -C/w Requip 9. DLP - -c/w home statin 10. GERD - -c/w home protonix 11. CBP - -chronic for her, c/w home pain medication and Tylenol 12. Gout -c/w home allopurinol 13. Depression -stable c/w home medication Cymbalta Disposition: She needs to continue to work with physical therapy, her breathing is certainly improved from yesterday from diuresis. We will see how she is doing in the morning, we can change her to PO Lasix in the AM. VS,Fishbone, I+O VS, Fishbone, I+O Laboratory Tests 10/26/18 05:39 Red Blood Count 5.39, Mean Corpuscular Volume 79.2 L, Mean Corpuscular Hemoglobin 23.7 L, Mean Corpuscular Hemoglobin Concent 30.0 L, Red Cell Distribution Width 18.4 H, Calcium Level 8.6 L Vital Signs Date Time Temp Pulse Resp B/P (MAP) Pulse Ox O2 Delivery O2 Flow Rate FiO2 10/26/18 14:00 97.3 70 18 148/72 (97) 91 2.0 10/26/18 02:25 Nasal Cannula I&O- Last 24 Hours up to 6 AM 10/26/18 06:00 Intake Total 1470 ml Output Total 1700 ml Balance -230 ml GME ATTESTATION GME ATTESTATION My faculty preceptor for this patient encounter was physically present during the encounter and was fully available. All aspects of the patient interview, examination, medical decision making process, and medical care plan development were reviewed and approved by the faculty preceptor. The faculty preceptor is aware and concurs with the plan as stated in the body of this note and will attest to such by his/her cosignature. ATTENDING NOTE I saw and evaluated the patient. I agree with the findings and plan of care as documented in the resident's note FELICIA REES DO October 26, 2018 16:18 EVERARDO FOUNTAIN MD Oct 28, 2018 12:30
[2018-10-26] MEDS: ROSUVASTATIN 10 MG TAB (CRESTOR) PO SCH (20:34)
[2018-10-26] MEDS: ASPIRIN ENTERIC 325 MG TAB PO SCH (20:34)
[2018-10-26] MEDS: ACETAMINOPHEN 500 MG TAB PO SCH (20:35)
[2018-10-26] MEDS: rOPINIRole 0.25 MG TAB(REQUIP) PO SCH (20:35)
[2018-10-26] MEDS: LATANOPROST 0.005% OPHTH SOLN 2.5 ML OU SCH (20:36)
[2018-10-26] MEDS: SPIRONOLACTONE 25 MG TAB PO SCH (20:40)
--- NOTE | 2018-10-26 21:57 | ECGEPIP ---
[facility] Test Date: 2018-10-25 Pat Name: ROSALVA MOSES Department: Room: Y0128-27 Gender: Female Test Conductor: LILA : 1945 Requested By: EVERARDO FOUNTAIN Order Number: [id number] Reading MD: Issa [place] Measurements Intervals [place] Rate: 91 P: 67 [place]: 175 QRS: QRSD: 98 T: 93 QT: 360 QTc: 444 Interpretive Statements SINUS RHYTHM WITH FREQUENT SUPRAVENTRICULAR PREMATURE COMPLEXES POSSIBLE LEFT ATRIAL ENLARGEMENT Marked left axis deviation Nonspecific ST-T abnormalities. No significant change compared with 10/24/2018 at 1549 Electronically Signed on 10-26-2018 21:57:05 EDT by Issa Washington
[2018-10-26 22:00] VITALS: BP 182/84
[2018-10-26 23:00] VITALS: BP 164/72
[2018-10-27] MEDS: IPRATROPIUM 0.5MG/ALBUTEROL 2.5MG INH SOL UD 3ML (DUONEB)(J7620) NEB SCH ×2 (01:37→07:16)
[2018-10-27] MEDS ORDERED: BENZONATATE 100 MG CAP PO ONE (04:00)
[2018-10-27] MEDS: HEPARIN SOD (PORCINE) 5000 UNITS/ML VIAL SC SCH (05:19)
[2018-10-27 05:55] LABS: HEMATOCRIT 40.2 % (36.0-47.0); HEMOGLOBIN 12.3 g/dl (12.0-15.5); MEAN CORPUSCULAR HEMOGLOBIN 23.9 pg (27.0-33.0); MEAN CORPUSCULAR HGB CONC 30.6 g/dl (32.0-36.5); MEAN CORPUSCULAR VOLUME 78.1 fl (80.0-96.0); PLATELET COUNT, AUTOMATED 195 10^3/uL (150-450); RED BLOOD COUNT 5.15 10^6/uL (4.00-5.40); WHITE BLOOD COUNT 12.1 10^3/uL (4.0-10.0)
[2018-10-27 06:00] VITALS: BP 162/73
[2018-10-27 06:10] LABS: CALCIUM LEVEL 9.2 MG/DL (8.8-10.2); CREATININE FOR GFR 1.42 MG/DL (0.55-1.30); GLOMERULAR FILTRATION RATE 38.6 (>39); POTASSIUM SERUM 3.9 MEQ/L (3.5-5.1)
[2018-10-27] MEDS: TIOTROPIUM INHALER/CAPSULE (SPIRIVA) INH SCH (07:16)
[2018-10-27] MEDS ORDERED: BENZONATATE 100 MG CAP PO SCH (09:00)
[2018-10-27 09:15] VITALS: BP 162/73
[2018-10-27] MEDS: predniSONE 10 MG TAB PO SCH (09:15)
[2018-10-27] MEDS: MAGNESIUM OXIDE 400 MG TAB (MAG-OX) PO SCH (09:15)
[2018-10-27] MEDS: amLODIPine 10 MG TAB PO SCH (09:15)
[2018-10-27] MEDS: HumaLOG INSULIN (NovoLOG) PER UNIT SC SCH (09:16)
[2018-10-27] MEDS: PREGABALIN 100 MG CAP (LYRICA) PO SCH (09:16)
[2018-10-27] MEDS: PANTOPRAZOLE 40MG TAB (PROTONIX) PO SCH (09:16)
[2018-10-27] MEDS: ALLOPURINOL 300 MG TAB PO SCH (09:16)
[2018-10-27] MEDS: FAMOTIDINE 20 MG TAB PO SCH (09:16)
[2018-10-27] MEDS: DULoxetine 30 MG CAP (CYMBALTA) PO SCH (09:16)
[2018-10-27] MEDS: FUROSEMIDE 100 MG/10 ML VIAL (J1940) IV SCH (09:18)
[2018-10-27] MEDS: HumuLIN N INSULIN (NovoLIN N) PER UNIT SC SCH (10:52)
--- NOTE | 2018-10-27 12:02 | DS.PDOC ---
Discharge Summary General Date of Admission October 24, 2018 at 20:50 Date of Discharge 10/27/18 Discharge Summary DISCHARGE DIAGNOSIS: SOB secondary to CHF exacerbation SECONDARY DIAGNOSIS: 1. COPD 2. Hypertension 3. Coronary artery disease 4. DM2 5. CKD-III 6. RLS 7. DLP - 8. GERD - 9. CBP - 10. Gout 11. Depression PROCEDURES PERFORMED DURING STAY: ECHO CONSULTANTS:None HOSPITAL COURSE: During the course of her stay she was actively diuresed with IV Lasix. She worked with physical therapy for improvement in her acute on chronic physical deconditioning. She was eventually weaned down to her home O2 needs of 2L and was tolerating this well on day of discharge. She will be sent home on total of 100 mg Lasix which is 20 mg more than she was on pre-admission, she is aware of this. She has follow up appt all ready scheduled with PCP and Cardiology and she is aware of these appointments. She had ECHO performed this stay and it showed increased RV systolic pressure with an EF of 75%, likely she has some elevated pulmonary pressures, and with diastolic dysfunction. We did discuss importance of smoking cessation and using her CPAP at night. DISCHARGE MEDICATIONS: Please see below. ALLERGIES: Please see below. SUBJECTIVE: This is a 73 y/o female sitting in bed, in NAD, she states she is at her baseline respiratory status and feels well to go home. She is anxious to leave. Otherwise patient denies chest pain, shortness, breath, nausea, vomiting, fevers, chills. OBJECTIVE: PHYSICAL EXAMINATION: VITAL SIGNS: Please see below. GENERAL: Pleasant 73 y/o female sitting up in bed awake alert oriented speaking in complete sentences no acute distress HEENT: moist mucus membranes, EOMI, no JVD CARDIOVASCULAR: S1 S2 regular no additional heart sounds appreciated RESPIRATORY: minimal bibasilar wheeze, no crackles, no rhonchi, no rales ABDOMINAL: soft, non-tender, nabsx4, no distension, no rebound ridgity or guarding, no hepatosplenomegaly or masses appreciated EXTREMITIES: No clubbing, cyanosis, edema NEUROLOGICAL: no gross focal deficits appreciated PSYCHOLOGICAL: Appropriate affect LABORATORY DATA, MICROBIOLOGY: Please see below. IMAGING STUDIES: CXR 10.24.18 Impression: Stable cardiomegaly and stable chronic changes. Evaluation is limited by technique and mild pulmonary venous congestion cannot be excluded. CTA chest 10.24.18 Impression: 1. No evidence for pulmonary embolus. 2. Cardiomegaly and pulmonary vascular congestion. 3. No obvious further acute mediastinal or pleuroparenchymal process appreciated. 4. Chronic scattered fibrosis/scarring and adenopathy as well as chronic stable left apical mass all of which remains stable through 03/18/2016. ECHOCARDIOGRAM: CONCLUSIONS: 1. Suggestive of severe elevation of estimated right ventricular systolic pressure (65-70 mmHg assuming a right atrial pressure of 5-10 mmHg). Normal right ventricle size and systolic function. Right atrium appeared in normal size. 2. Slight concentric left ventricular hypertrophy. Normal regional LV wall motion and wall thickening. Normal LV systolic function. Left ventricular ejection fraction (LVEF) 75% by visual estimate. Grade 1 LV diastolic dysfunction (impaired relaxation filling pattern). Normal left atrial size. 3. Mild aortic valve sclerosis of a 3-cusp aortic valve. No aortic regurgitation. 4. Mild mitral annular calcification. No mitral regurgitation. 5. No pericardial effusion. ASSESSMENT AND PLAN: This is a 73 y/o female who presented for SOB and found to be in CHF exacerbation. PROBLEMS: 1. COPD 2. Hypertension 3. Coronary artery disease 4. DM2 5. CKD-III 6. RLS 7. DLP - 8. GERD - 9. CBP - 10. Gout 11. Depression DISPOSITION: Discharge to home DISCHARGE CONDITION: Improved and Stable [PROGNOSIS]: Stable FOLLOW UP: Please follow up with Cardiology and PCP within 5-7 days of d/c ACTIVITY: As prior to admission DIET: As prior to admission TIME SPENT ON DISCHARGE: 35 minutes Vital Signs/I&Os Vital Signs Date Time Temp Pulse Resp B/P (MAP) Pulse Ox O2 Delivery O2 Flow Rate FiO2 10/27/18 09:15 76 162/73 10/27/18 09:00 2.0 10/27/18 06:00 98.5 16 92 10/26/18 02:25 Nasal Cannula I&O- Last 24 Hours up to 6 AM 10/27/18 06:00 Intake Total 1500 ml Output Total 1200 ml Balance 300 ml Laboratory Data Labs 24H Laboratory Tests 2 10/26/18 11:53: Bedside Glucose (Misc Panel) 140H 10/26/18 17:03: Bedside Glucose (Misc Panel) 306H 10/26/18 20:46: Bedside Glucose (Misc Panel) 343H 10/27/18 05:33: Nucleated Red Blood Cells % (auto) 0.0, Anion Gap 5L, Glomerular Filtration Rate 38.6L, Blood Urea Nitrogen 26H, Creatinine 1.42H, Sodium Level 137, Potassium Level 3.9, Chloride Level 99, Carbon Dioxide Level 33H, Calcium Level 9.2 CBC/BMP Laboratory Tests 10/27/18 05:33 Red Blood Count 5.15, Mean Corpuscular Volume 78.1 L, Mean Corpuscular Hemoglobin 23.9 L, Mean Corpuscular Hemoglobin Concent 30.6 L, Red Cell Distribution Width 17.6 H, Calcium Level 9.2 FSBS Laboratory Tests Test 10/26/18 11:53 10/26/18 17:03 10/26/18 20:46 Range/Units Bedside Glucose (Misc Panel) 140 306 343 83-110 MG/DL Microbiology Microbiology 10/24/18 Blood Culture - Preliminary, Resulted No Growth after 48 hours. All Specime... 10/24/18 Blood Culture - Preliminary, Resulted No Growth after 48 hours. All Specime... 10/25/18 Gram Stain - Final, Complete 10/25/18 Sputum Culture - Final, Complete Haemophilus Influenzae 10/25/18 Respiratory Virus Panel (PCR) (MARY) - Final, Complete Discharge Medications Scheduled Acetaminophen (Acetaminophen) 500 Mg Tablet, 1,000 MG PO QHS, (Reported) Allopurinol (Zyloprim) 300 Mg Tab, 300 MG PO DAILY, (Reported) Amlodipine Besylate (Amlodipine Besylate) 10 Mg Tab, 10 MG PO DAILY, (Reported) Aspirin (Aspirin EC) 325 Mg Tabec, 325 MG PO QHS, (Reported) Calcitriol (Calcitriol) 0.25 Mcg Cap, 0.25 MCG PO 3XW, (Reported) TAKES TUESDAY, TUESDAY AND TUESDAY MORNINGS Cyclosporine (Restasis) 0.05% Droperette, 1 DROP OU BID, (Reported) Duloxetine Hcl (Duloxetine HCl) 60 Mg Cap, 60 MG PO BID, (Reported) Esomeprazole Magnesium (Nexium) 40 Mg Cap, 40 MG PO DAILY, (Reported) Furosemide (Lasix) 20 Mg Tablet, 1 TAB PO DAILY Furosemide (Lasix) 80 Mg Tablet, 80 MG PO DAILY Insulin Human NPH (Novolin N) 1 Ml Susp, 80 UNITS SC BID, (Reported) Latanoprost (Xalatan) 0.005% 2.5ML Drops, 1 DROP OU QHS, (Reported) Magnesium Oxide (Magnesium Oxide) 400 Mg Tab, 400 MG PO BID, (Reported) Melatonin (Melatonin) 10 Mg Capsule, 10 MG PO QHS, (Reported) Prednisone (Prednisone) 10 Mg Tab, 10 MG PO DAILY, (Reported) Pregabalin (Lyrica) 200 Mg Cap, 200 MG PO BID, (Reported) Ranitidine HCl (Ranitidine HCl) 150 Mg Tablet, 1 TAB PO DAILY, (Reported) Ropinirole HCl (Requip) 0.25 Mg Tablet, 0.5 MG PO QHS, (Reported) Rosuvastatin Calcium (Crestor) 20 Mg Tab, 20 MG PO QHS, (Reported) Spironolactone (Spironolactone) 25 Mg Tab, 25 MG PO QHS, (Reported) Umeclidinium [place] (Incruse Ellipta) 62.5 Mcg Blst.w.dev, 1 PUFF INH DAILY, (Reported) Scheduled PRN Albuterol Sulf (Albuterol Sulfate) 2.5 Mg/3 Ml Nebu, 2.5 MG INH Q4H PRN for SHORTNESS OF BREATH, (Reported) Albuterol Sulfate (Ventolin Hfa) 108 Mcg/Act Aer, 2 PUFFS INH Q4H PRN for SHORTNESS OF BREATH, (Reported) Hydrocodone/Acetaminophen (Hydrocodone-Acetamin 10-325 mg) 1 Tab Tab, 1 TAB PO Q6H PRN for PAIN, (Reported) Nitroglycerin (Nitrostat) 0.4 Mg Subl, 0.4 MG SL NITRO PRN for CHEST PAIN, (Reported) Nystatin (Nyamyc) 15 Gm Powder, 1 DOSE TOP BID PRN for REDNESS/IRRITATION, (Reported) APPLY TO UNDER BREASTS AND GROIN Allergies Coded Allergies: TAPE (Verified Allergy, Unknown, 10/25/18) GME ATTESTATION GME ATTESTATION My faculty preceptor for this patient encounter was physically present during the encounter and was fully available. All aspects of the patient interview, examination, medical decision making process, and medical care plan development were reviewed and approved by the faculty preceptor. The faculty preceptor is aware and concurs with the plan as stated in the body of this note and will attest to such by his/her cosignature. ATTENDING NOTE I saw and evaluated the patient. I agree with the findings and plan of care as documented in the resident's note. I spent 45 minutes coordinating this patient's discharge. FELICIA REES DO October 27, 2018 12:02 EVERARDO FOUNTAIN MD Oct 28, 2018 12:33
== END 2018-10-27 11:58 | disposition home or self-care (01) | DRG 291 ==
LOC: M ED 14:55 → M ED INP 20:50 → M MSPAV 10-25 14:45
PROVIDERS: ADMIT Internal Medicine; ATTEND Internal Medicine
DX: I13.0 Hypertensive heart and chronic kidney disease with heart failure and stage 1 through stage 4 chronic kidney disease, or unspecified chronic kidney disease (principal); I50.33 Acute on chronic diastolic (congestive) heart failure; J44.9 Chronic obstructive pulmonary disease, unspecified; K21.9 Gastro-esophageal reflux disease without esophagitis; M10.9 Gout, unspecified; F32.9 Major depressive disorder, single episode, unspecified; E11.40 Type 2 diabetes mellitus with diabetic neuropathy, unspecified; N18.3 Chronic kidney disease, stage 3 (moderate); G25.81 Restless legs syndrome; Z79.82 Long term (current) use of aspirin; Z79.899 Other long term (current) drug therapy; G47.00 Insomnia, unspecified; H40.9 Unspecified glaucoma

== ENCOUNTER 2018-11-03 13:17 | Inpatient (IN) | payer MEDICARE, MEDICAID ==
[~2018-11-03] VITALS: Ht 157.5 cm; Wt 85.8 kg
[~2018-11-03 13:17] MED LIST changes: +ACET-683 PO; +CVS10CAP7 PO; +LASI20TA3 PO; +NYAM10003 TOP; +RANI150T14 PO; +REQU1TAB14 PO; +REST0.05 OU; +XALA0.007 OU
[2018-11-03 14:48] LABS: VENOUS BASE EXCESS 6.6 (-2.0-2.0); VENOUS HCO3 31.2 MEQ/L (23.0-27.0); VENOUS O2 SATURATION 96.3 % (60.0-80.0); VENOUS PARTIAL PRESSURE CO2 44.6 mmHg (38.0-50.0); VENOUS PARTIAL PRESSURE O2 82.5 mmHg (30.0-50.0); VENOUS PH 7.463 UNITS (7.330-7.430); VENOUS STANDARD HCO3 30.4 MEQ/L; VENOUS TOTAL CO2 32.6 MEQ/L (24.0-28.0)
[2018-11-03 14:50] LABS: BASO # 0.1 10^3/uL (0.0-0.2); BASO % 0.2 % (0.0-1.0); EOS # 0.1 10^3/uL (0.0-0.50); EOS % 0.3 % (0.0-3.0); HEMATOCRIT 42.9 % (36.0-47.0); HEMOGLOBIN 13.3 g/dl (12.0-15.5); LYMPH # 1.4 10^3/uL (1.5-4.5); LYMPH % 6.5 % (24.0-44.0); MEAN CORPUSCULAR HEMOGLOBIN 24.6 pg (27.0-33.0); MEAN CORPUSCULAR VOLUME 79.4 fl (80.0-96.0); MONO # 0.8 10^3/uL (0.0-0.8); MONO % 3.7 % (0.0-5.0); NEUTROPHILS # 18.9 10^3/uL (1.8-7.7); NEUTROPHILS % 88.6 % (36.0-66.0); PLATELET COUNT, AUTOMATED 224 10^3/uL (150-450); WHITE BLOOD COUNT 21.3 10^3/uL (4.0-10.0)
[2018-11-03 15:00] LABS: INR 0.96; PROTHROMBIN TIME 12.9 SECONDS (12.1-14.4)
[2018-11-03 15:21] LABS: ALBUMIN 3.5 GM/DL (3.2-5.2); BILIRUBIN,DIRECT 0.1 MG/DL (0.0-0.2); BILIRUBIN,TOTAL 0.3 MG/DL (0.2-1.0); CALCIUM LEVEL 8.5 MG/DL (8.8-10.2); CK-MB VALUE MASS 3.7 NG/ML (<3.6); CREATININE FOR GFR 1.36 MG/DL (0.55-1.30); GLOMERULAR FILTRATION RATE 40.6 (>39); MB/CK RELATIVE INDEX 4.35 (< OR =4); POTASSIUM SERUM 4.2 MEQ/L (3.5-5.1); THYROID STIMULATING HORMONE 5.96 uIU/ML (0.358-3.740); TOTAL PROTEIN 7.6 GM/DL (6.4-8.2); TROPONIN I 0.05 NG/ML (< 0.10)
--- NOTE | 2018-11-03 16:09 | REP ---
Bilateral lower extremity Duplex Doppler venous ultrasound: Real time compression and duplex Doppler interrogation of the bilateral lower extremity deep venous system is performed. Bilaterally, the common femoral, superficial femoral and popliteal veins are fully compressible with transducer pressure and demonstrate normal spontaneous and phasic flow, without evidence of deep venous thrombosis. Impression: No evidence of deep venous thrombosis of the bilateral lower extremity femoral popliteal venous system. Electronically Signed by Dominic Louise MD 11/03/2018 04:01 P
[2018-11-03] MEDS ORDERED: FURO20TA2 PO (16:14)
[2018-11-03] MEDS ORDERED: MELA5TAB7 PO (16:19)
[2018-11-03] MEDS ORDERED: FURO80TA2 PO (16:19)
[2018-11-03] MEDS ORDERED: IPRATROPIUM 0.5MG/ALBUTEROL 2.5MG INH SOL UD 3ML (DUONEB)(J7620) NEB ONE (17:15)
--- NOTE | 2018-11-03 17:19 | REP ---
REASON: Cough and dyspnea. COMPARISON: Multiple, the latest 10/24/2018. The technique utilized in obtaining the radiograph has magnified the cardiac silhouette and accentuated the interstitial markings. There is global cardiomegaly status quo. There is a diffuse increase in the interstitial markings accentuated by technique. No acute patchy parenchymal opacities or pleural effusions seem to have developed on this limited semi-upright portable exam. There is no change in the osseous structures. IMPRESSION:Cardiomegaly with interstitial edema/fibrosis. This needs to be correlated clinically with appropriate followup. Consider PA and lateral views of the chest. Electronically Signed by Chito Bateman DO 11/06/2018 12:54 P
[2018-11-03] MEDS ORDERED: methylPREDNISolone INJ 125 MG/2 ML VIAL (J2930) IV ONE (18:00)
[2018-11-03] MEDS ORDERED: IPRATROPIUM 0.5MG/ALBUTEROL 2.5MG INH SOL UD 3ML (DUONEB)(J7620) NEB PRN (20:00)
[2018-11-03] MEDS ORDERED: ACETAMINOPHEN TAB 650MG DOSE (2X325MG) PO PRN (20:00)
[2018-11-03] MEDS ORDERED: DEXTROSE 50% 50 ML SYRINGE IV PRN (20:15)
[2018-11-03] MEDS ORDERED: GLUCAGON FOR INJ 1 MG VIAL (J1610) SC PRN (20:15)
[2018-11-03] MEDS ORDERED: GLUCOSE 4 GM CHEW TABLET PO PRN (20:15)
--- NOTE | 2018-11-03 20:32 | HPEPDOC ---
[facility] Medical History & Physical Date of Admission Nov 03, 2018 Date of Service: Nov 03, 2018 Other Provider PMD: Kurt Villeda History and Physical CHIEF COMPLAINT: SOB HISTORY OF PRESENT ILLNESS: 73-year-old female with past medical history of COPD on 2 L home O2, HFpEF, CAD, HTN, DM, RLS, gout presented to the ER with complaints of worsening SOB. Of note, patient has been admitted and discharged recently for similar complaints and was treated for HF/COPD with improvement. She reports worsening LE swelling, cough and LE edema. She also reports feeling unwell overall but otherwise denies any other specific complaints including chest pain, fever, chills. She is on chronic steroid at home of 10 mg Prednisone. States that she feels this is more COPD. PAST MEDICAL HISTORY: Refer to [facility] PAST SURGICAL HISTORY: Cholecystectomy Hysterectomy EGD/colonoscopy SOCIAL HISTORY: Denies tobacco, alcohol or illicit drug use. FAMILY HISTORY: Parents both passed congestive heart failure Sister- liver cancer, COPD, DM ALLERGIES: Please see below. REVIEW OF SYSTEMS: 10 point review of system negative except as stated in HPI HOME MEDICATIONS: Please see below. PHYSICAL EXAMINATION: General: lethargy, congested with mild distress. Eyes: Normal sclera, EOMI, MARIUSZ HENT: Atraumatic, neck supple, moist mucous membranes Cardiovascular: Normal rate, normal rhythm. 2+ pitting edema b/l. Pulmonary: Decrease breath sounds b/l with expiratory wheeze GI: Soft, nontender, nondistended Skin: Warm and dry Neuro: CN grossly intact. No focal deficits. Strengths equal b/l. Psych: oriented x 3 LABORATORY DATA: See below. IMAGING: CXR- IMPRESSION: Cardiomegaly with interstitial edema/fibrosis. This needs to be correlated clinically with appropriate followup. Consider PA and lateral views of the chest MICROBIOLOGY: Please see below. ECHO: 10/15 CONCLUSIONS: 1. Suggestive of severe elevation of estimated right ventricular systolic pressure (65-70 mmHg assuming a right atrial pressure of 5-10 mmHg). Normal right ventricle size and systolic function. Right atrium appeared in normal size. 2. Slight concentric left ventricular hypertrophy. Normal regional LV wall motion and wall thickening. Normal LV systolic function. Left ventricular ejection fraction (LVEF) 75% by visual estimate. Grade 1 LV diastolic dysfunction (impaired relaxation filling pattern). Normal left atrial size. 3. Mild aortic valve sclerosis of a 3-cusp aortic valve. No aortic regurgitation. 4. Mild mitral annular calcification. No mitral regurgitation. 5. No pericardial effusion. ASSESSMENT AND PLAN: 1. COPD exacerbation - On 2L home O2. Recently treated and on prednisone 10mg daily chronically at home. - Will c/w solumedrol around the clock along with nebs. - Leukocytosis likely 2/2 steroid use. Afebrile. - Monitor O2 sat, O2 support as needed. - Titrate to keep sat >92%. 2. HFpEF - Recent ECHO noted with preserved EF and grade 1 diastolic dysfunction. - Unsure if cardiac dysfunction is contributing to all symptoms. - LE edema may also be attributed to steroid use. - CXR does show interstitial edema. - Will start on IV lasix, hold home diuretics. - I/O. fluid restriction. daily weights. 3. DM - resume home regimen insulin. - Accuchecks and sliding scale. 4. HTN - Monitor BP. - Resume home meds. DVT ppx: HSQ and SCD Code status: Full code Vital Signs Vital Signs Date Time Temp Pulse Resp B/P (MAP) Pulse Ox O2 Delivery O2 Flow Rate FiO2 11/03/18 18:45 78 16 144/78 (100) 97 Nasal Cannula 2.0 11/03/18 13:17 98.5 Laboratory Data Labs 24H Laboratory Tests 2 11/03/18 14:36: Immature Granulocyte % (Auto) 0.7, White Blood Count 21.3H, Red Blood Count 5.40, Hemoglobin 13.3, Hematocrit 42.9, Mean Corpuscular Volume 79.4L, Mean Corpuscular Hemoglobin 24.6L, Mean Corpuscular Hemoglobin Concent 31.0L, Red Cell Distribution Width 19.5H, Platelet Count 224, Neutrophils (%) (Auto) 88.6H, Lymphocytes (%) (Auto) 6.5L, Monocytes (%) (Auto) 3.7, Eosinophils (%) (Auto) 0.3, Basophils (%) (Auto) 0.2, Neutrophils # (Auto) 18.9H, Lymphocytes # (Auto) 1.4L, Monocytes # (Auto) 0.8, Eosinophils # (Auto) 0.1, Basophils # (Auto) 0.1, Nucleated Red Blood Cells % (auto) 0.0, Prothrombin Time 12.9, Prothromb Time International Ratio 0.96, Blood Gas Bicarbonate Standard 30.4, Venous Blood pH 7.463H, Venous Blood Partial Pressure CO2 44.6, Venous Blood Partial Pressure O2 82.5H, Venous Blood Total Carbon Dioxide 32.6H, Venous Blood HCO3 31.2H, Venous Blood Oxygen Saturation 96.3H, Venous Blood Base Excess 6.6H, Anion Gap 7L, Glomerular Filtration Rate 40.6, Lactic Acid Level 1.7, Calcium Level 8.5L, Aspartate Amino Transf (AST/SGOT) 13, Alanine Aminotransferase (ALT/SGPT) 19, Alkaline Phosphatase 91, Total Bilirubin 0.3, Direct Bilirubin 0.1, Total Creatine Kinase 85, Creatine Kinase MB 3.7H, Creatine Kinase MB Relative Index 4.35H, Troponin I 0.05, PF-Zyh-P-Type Natriuretic Peptide 1131H, Total Protein 7.6, Albumin 3.5, Albumin/Globulin Ratio 0.85L, Thyroid Stimulating Hormone (TSH) 5.960H CBC/BMP Laboratory Tests 11/03/18 14:36 Red Blood Count 5.40, Mean Corpuscular Volume 79.4 L, Mean Corpuscular Hemoglobin 24.6 L, Mean Corpuscular Hemoglobin Concent 31.0 L, Red Cell Distribution Width 19.5 H, Neutrophils (%) (Auto) 88.6 H, Lymphocytes (%) (Auto) 6.5 L, Monocytes (%) (Auto) 3.7, Eosinophils (%) (Auto) 0.3, Basophils (%) (Auto) 0.2, Neutrophils # (Auto) 18.9 H, Lymphocytes # (Auto) 1.4 L, Monocytes # (Auto) 0.8, Eosinophils # (Auto) 0.1, Basophils # (Auto) 0.1 Microbiology Microbiology 11/03/18 Blood Culture, Received Pending 11/03/18 Blood Culture, Received Pending Home Medications Scheduled Acetaminophen (Acetaminophen) 500 Mg Tablet, 1,000 MG PO QHS Allopurinol (Zyloprim) 300 Mg Tab, 300 MG PO DAILY Amlodipine Besylate (Amlodipine Besylate) 10 Mg Tab, 10 MG PO DAILY Aspirin (Aspirin EC) 325 Mg Tabec, 325 MG PO QHS Calcitriol (Calcitriol) 0.25 Mcg Cap, 0.25 MCG PO 3XW TAKES TUESDAY, TUESDAY AND TUESDAY MORNINGS Cyclosporine (Restasis) 0.05% Droperette, 1 DROP OU BID Duloxetine Hcl (Duloxetine HCl) 60 Mg Cap, 60 MG PO BID Furosemide (Furosemide) 20 Mg Tablet, 20 MG PO QPM TAKES AT 1630 Furosemide (Furosemide) 80 Mg Tablet, 80 MG PO DAILY Insulin Human NPH (Novolin N) 1 Ml Susp, 80 UNITS SC BID Latanoprost (Xalatan) 0.005% 2.5ML Drops, 1 DROP OU QHS Magnesium Oxide (Magnesium Oxide) 400 Mg Tab, 400 MG PO BID Melatonin (Melatonin) 5 Mg Tablet, 5 MG PO QHS Prednisone (Prednisone) 10 Mg Tab, 10 MG PO DAILY Pregabalin (Lyrica) 200 Mg Cap, 200 MG PO BID Ranitidine HCl (Ranitidine HCl) 150 Mg Tablet, 1 TAB PO DAILY Ropinirole HCl (Requip) 0.25 Mg Tablet, 0.5 MG PO QHS Rosuvastatin Calcium (Crestor) 20 Mg Tab, 20 MG PO DAILY Spironolactone (Spironolactone) 25 Mg Tab, 25 MG PO QHS Umeclidinium [place] (Incruse Ellipta) 62.5 Mcg Blst.w.dev, 1 PUFF INH DAILY Scheduled PRN Albuterol Sulf (Albuterol Sulfate) 2.5 Mg/3 Ml Nebu, 1 INH INH Q4H PRN for SHORTNESS OF BREATH Albuterol Sulfate (Ventolin Hfa) 108 Mcg/Act Aer, 2 PUFFS INH Q4H PRN for SHORTNESS OF BREATH Hydrocodone/Acetaminophen (Hydrocodone-Acetamin 10-325 mg) 1 Tab Tab, 1 TAB PO Q6H PRN for PAIN Nitroglycerin (Nitrostat) 0.4 Mg Subl, 0.4 MG SL NITRO PRN for CHEST PAIN Nystatin (Nyamyc) 15 Gm Powder, 1 DOSE TOP BID PRN for REDNESS/IRRITATION APPLY TO UNDER BREASTS AND GROIN Allergies Coded Allergies: TAPE (Verified Allergy, Unknown, 10/25/18) A-FIB/CHADSVASC A-FIB History Current/History of A-Fib/PAF?: No ISSA RUELAS MD Nov 03, 2018 20:32
[2018-11-03] MEDS: LATANOPROST 0.005% OPHTH SOLN 2.5 ML OU SCH (21:00)
[2018-11-03] MEDS: HumaLOG INSULIN (NovoLOG) PER UNIT SC SCH (21:00)
[2018-11-03] MEDS: IPRATROPIUM 0.5MG/ALBUTEROL 2.5MG INH SOL UD 3ML (DUONEB)(J7620) NEB SCH (21:47)
[2018-11-03 22:25] VITALS: BP 172/77
[2018-11-03] MEDS: PREGABALIN 100 MG CAP (LYRICA) PO SCH (22:49)
[2018-11-03] MEDS: rOPINIRole 0.25 MG TAB(REQUIP) PO SCH (22:50)
[2018-11-03] MEDS: MAGNESIUM OXIDE 400 MG TAB (MAG-OX) PO SCH (22:50)
[2018-11-03] MEDS: ASPIRIN ENTERIC 325 MG TAB PO SCH (22:50)
[2018-11-03] MEDS: SPIRONOLACTONE 25 MG TAB PO SCH (22:50)
[2018-11-03] MEDS: DULoxetine 30 MG CAP (CYMBALTA) PO SCH (22:50)
[2018-11-03] MEDS: FUROSEMIDE 40 MG/4 ML VIAL (J1940) IV SCH (22:51)
[2018-11-03] MEDS: HEPARIN SOD (PORCINE) 5000 UNITS/ML VIAL SC SCH (22:51)
[2018-11-03] MEDS: NORCO, ANEXSIA 5/325MG TABLET (HYDROcodone/ACETAMINOPHEN) PO PRN (22:55)
[2018-11-03] MEDS ORDERED: DEXTROMETHORPHAN 5 ML SYRUP (ROBITUSSIN PEDIATRIC COUGH) PO PRN (23:45)
[2018-11-04] MEDS: HumuLIN N INSULIN (NovoLIN N) PER UNIT SC SCH ×3 (00:28→22:06)
[2018-11-04 02:00] VITALS: BP 165/70
[2018-11-04] MEDS: FUROSEMIDE 40 MG/4 ML VIAL (J1940) IV SCH ×2 (04:58→12:38)
[2018-11-04] MEDS: HEPARIN SOD (PORCINE) 5000 UNITS/ML VIAL SC SCH ×3 (05:10→22:06)
[2018-11-04] MEDS: methylPREDNISolone INJ 125 MG/2 ML VIAL (J2930) IV SCH ×3 (05:11→22:05)
[2018-11-04 06:00] VITALS: BP 145/72
[2018-11-04 06:01] LABS: HEMATOCRIT 44.9 % (36.0-47.0); HEMOGLOBIN 13.6 g/dl (12.0-15.5); MEAN CORPUSCULAR HEMOGLOBIN 23.4 pg (27.0-33.0); MEAN CORPUSCULAR HGB CONC 30.3 g/dl (32.0-36.5); MEAN CORPUSCULAR VOLUME 77.4 fl (80.0-96.0); PLATELET COUNT, AUTOMATED 228 10^3/uL (150-450); WHITE BLOOD COUNT 13.3 10^3/uL (4.0-10.0)
[2018-11-04 06:20] LABS: CALCIUM LEVEL 9.6 MG/DL (8.8-10.2); CREATININE FOR GFR 1.43 MG/DL (0.55-1.30); GLOMERULAR FILTRATION RATE 38.3 (>39); POTASSIUM SERUM 3.9 MEQ/L (3.5-5.1)
[2018-11-04] MEDS: IPRATROPIUM 0.5MG/ALBUTEROL 2.5MG INH SOL UD 3ML (DUONEB)(J7620) NEB SCH ×3 (07:50→19:30)
--- NOTE | 2018-11-04 08:04 | REP ---
CT CHEST WITHOUT IV CONTRAST: CT chest performed without IV contrast. Sagittal and coronal reconstruction images are performed. Comparison is made with prior studies of and 05/12/2018. There is diffuse interstitial fibrotic change in the lungs, moderate and symmetrical bilaterally. The findings are stable. No new infiltrate is seen. The heart is somewhat enlarged. There is no pleural or pericardial effusion. Left superior mediastinal mass is stable. There are severe mildly enlarged mediastinal lymph nodes which are also stable. There are degenerative changes of the spine. Multiple metallic clips are seen in the right upper quadrant presumably status post cholecystectomy. IMPRESSION: Stable chronic fibrotic changes of the lungs. Stable left superior mediastinal mass and stable mediastinal adenopathy. Electronically Signed by Dominic Louise MD 11/07/2018 09:58 A
[2018-11-04] MEDS: ROSUVASTATIN 10 MG TAB (CRESTOR) PO SCH (08:13)
[2018-11-04] MEDS: PREGABALIN 100 MG CAP (LYRICA) PO SCH ×2 (08:13→22:04)
[2018-11-04] MEDS: ALLOPURINOL 300 MG TAB PO SCH (08:13)
[2018-11-04] MEDS: DULoxetine 30 MG CAP (CYMBALTA) PO SCH ×2 (08:13→22:05)
[2018-11-04] MEDS: MAGNESIUM OXIDE 400 MG TAB (MAG-OX) PO SCH ×2 (08:13→22:04)
[2018-11-04] MEDS: HumaLOG INSULIN (NovoLOG) PER UNIT SC SCH ×4 (08:18→21:00)
--- NOTE | 2018-11-04 08:54 | ECGEPIP ---
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
[2018-11-04] MEDS ORDERED: amLODIPine 10 MG TAB PO SCH (09:00)
[2018-11-04] MEDS: NORCO, ANEXSIA 5/325MG TABLET (HYDROcodone/ACETAMINOPHEN) PO PRN ×2 (09:38→22:03)
[2018-11-04] MEDS: DOXYCYCLINE HYCLATE 100 MG TAB PO SCH ×2 (09:39→22:05)
[2018-11-04] MEDS: METOPROLOL TART 50 MG TAB PO SCH ×2 (09:41→22:04)
[2018-11-04 10:00] VITALS: BP 176/90
[2018-11-04] MEDS: DEXTROMETHORPHAN 60MG/10ML SUSP 90ML BTL(DELSYM) PO PRN (12:36)
--- NOTE | 2018-11-04 13:57 | IPNPDOC ---
Subjective Date Seen The patient was seen on 11/04/18. Subjective Chief Complaint/HPI The patient states that her swelling of b/l lower extremities started a few months ago, and amlodipine was started around the time. Currently, she feels short of breath, worse than her baseline. Denies a fever, chills, but admits to cough. The patient wants to try cough syrup. No diarrhea or constipation. General: Denies: ROS Unobtainable, Chills, Night Sweats, Fatigue, Malaise, Normal Appetite, Other Symptoms Constitutional: Denies: Chills, Fever, Malaise, Night Sweats, Weakness, Fatigue, Weight Loss, Lethargy, Other Eyes: Denies: Pain, Vision change, Conjunctivae inflammation, Eyelid inflammation, Redness, Other ENT: Denies: Head Aches, Ear Pain, Dysphagia, Sinus Congestion, Post Nasal Drip, Sore Throat, Epistaxis, Other Symptoms Skin: Denies: Rash, Lesions, Jaundice, Bruising, Itching, Dry, Breakdown, Nail Changes, Other Pulmonary: Reports: Dyspnea, Cough Cardiovascular: Reports: Edema; Denies: Chest Pain, Palpitations, Orthopnea, Paroxysmal Noc. Dyspnea, Lt Headedness, Other Symptoms Gastrointestinal: Denies: Nausea, Vomiting, Abdominal Pain, Diarrhea, Constipation, Melena, Hematochezia, Other Symptoms Genitourinary: Denies: Dysuria, Frequency, Incontinence, Hematuria, Retention, Other Symptoms Hematologic: Denies: Bruising, Bleeding Excessively, Petecchia, Purpura, Enlarged Lymph Nodes, Other Hematologic Endocrine: Denies: Polydipsia, Polyphagia, Polyuria, Heat Intolerance, Cold Intolerance, Other Endocrine Sx Musculoskeletal: Denies: Neck Pain, Back Pain, Shoulder Pain, Arm Pain, Hand Pain, Leg Pain, Foot Pain, Joint Pain, Muscle Pain, Spasms, Other Symptoms Neurological: Denies: Weakness, Numbness, Incoordination, Change in speech, Confusion, Seizures, Other Symptoms Psych: Denies: Mood Normal, Anxiety, Depression, Memory Issues, Thoughts of Self Harm, Anger, Thoughts of Harming Other, Other Psych Objective Physical Examination General Exam: Positive: Alert Eye Exam: Positive: PERRLA ENT Exam: Positive: Atraumatic, Mucous membr. moist/pink Neck Exam: Positive: Supple Chest Exam: Positive: Wheezing Heart Exam: Positive: Rate Normal Telemetry: Positive: No significant arrhythmia Abdomen Exam: Positive: Normal bowel sounds Extremity Exam: Positive: Edema Skin Exam: Positive: Nl turgor and temperature Neuro Exam: Positive: Normal Speech Psych Exam: Positive: Mood NL Assessment /Plan Problems (1) Hypoxia Status: Acute Problem Text: # Shortness of breath, lower ext edema, cough - This seems to be combination of COPD, CHF, and pulmonary HTN. - Most recent echocardiogram in September this year shows severe pulmonary HTN and LVEF 75%. - She was receiving lasix 40 IV TID, but will decrease it to BID, given mildly suppressed renal function. - She was started on amlodipine a few months ago, and she noticed lower ex tremity swelling worse from that point. This could be 2/2 worsening pHTN, but R- sided heart EF is preserved. Will stop amlodipine and start metoprolol 50 BID. - She does not have pneumonia, but will cover atypical infection in the setting of COPD exacerbation. Continue doxycycline BID. - Continue breathing treatment and IV solumedrol. Will slowly taper down steroid. # HTN, HLD, DM, DM neuropathy - Continue aspirin full dose. Cont. home medications except for amlodipine. - Cont. insulin sliding scale - Cont. lyrica # Glaucoma - Cont. home med # Depression and mental disorder - Cont. home medications Plan/VTE VTE Prophylaxis Ordered?: Yes (heparin) VS, I&O, 24H, Fishbone Vital Signs/I&O Vital Signs Date Time Temp Pulse Resp B/P (MAP) Pulse Ox O2 Delivery O2 Flow Rate FiO2 11/04/18 10:08 18 2.0 11/04/18 10:00 97.4 88 176/90 (118) 94 11/04/18 07:53 Nasal Cannula I&O- Last 24 Hours up to 6 AM 11/04/18 06:00 Intake Total 0 ml Output Total 50 ml Balance -50 ml Laboratory Data 24H LABS Laboratory Tests 2 11/03/18 14:36: Immature Granulocyte % (Auto) 0.7, White Blood Count 21.3H, Red Blood Count 5.40, Hemoglobin 13.3, Hematocrit 42.9, Mean Corpuscular Volume 79.4L, Mean Corpuscular Hemoglobin 24.6L, Mean Corpuscular Hemoglobin Concent 31.0L, Red Cell Distribution Width 19.5H, Platelet Count 224, Neutrophils (%) (Auto) 88.6H, Lymphocytes (%) (Auto) 6.5L, Monocytes (%) (Auto) 3.7, Eosinophils (%) (Auto) 0.3, Basophils (%) (Auto) 0.2, Neutrophils # (Auto) 18.9H, Lymphocytes # (Auto) 1.4L, Monocytes # (Auto) 0.8, Eosinophils # (Auto) 0.1, Basophils # (Auto) 0.1, Nucleated Red Blood Cells % (auto) 0.0, Prothrombin Time 12.9, Prothromb Time International Ratio 0.96, Blood Gas Bicarbonate Standard 30.4, Venous Blood pH 7.463H, Venous Blood Partial Pressure CO2 44.6, Venous Blood Partial Pressure O2 82.5H, Venous Blood Total Carbon Dioxide 32.6H, Venous Blood HCO3 31.2H, Venous Blood Oxygen Saturation 96.3H, Venous Blood Base Excess 6.6H, Anion Gap 7L, Glomerular Filtration Rate 40.6, Lactic Acid Level 1.7, Calcium Level 8.5L, Aspartate Amino Transf (AST/SGOT) 13, Alanine Aminotransferase (ALT/SGPT) 19, Alkaline Phosphatase 91, Total Bilirubin 0.3, Direct Bilirubin 0.1, Total Creatine Kinase 85, Creatine Kinase MB 3.7H, Creatine Kinase MB Relative Index 4.35H, Troponin I 0.05, VK-[id number]-Type Natriuretic Peptide 1131H, Total Protein 7.6, Albumin 3.5, Albumin/Globulin Ratio 0.85L, Thyroid Stimulating Hormone (TSH) 5.960H 11/03/18 22:48: Bedside Glucose (Misc Panel) 228H 11/04/18 05:45: Nucleated Red Blood Cells % (auto) 0.0, Anion Gap 7L, Glomerular Filtration Rate 38.3L, Calcium Level 9.6, Blood Urea Nitrogen 22H, Creatinine 1.43H, Sodium Level 136, Potassium Level 3.9, Chloride Level 100, Carbon Dioxide Level 29 11/04/18 11:29: Bedside Glucose (Misc Panel) 425H CBC/BMP Laboratory Tests 11/03/18 14:36 Red Blood Count 5.40, Mean Corpuscular Volume 79.4 L, Mean Corpuscular Hemoglobin 24.6 L, Mean Corpuscular Hemoglobin Concent 31.0 L, Red Cell Distribution Width 19.5 H, Neutrophils (%) (Auto) 88.6 H, Lymphocytes (%) (Auto) 6.5 L, Monocytes (%) (Auto) 3.7, Eosinophils (%) (Auto) 0.3, Basophils (%) (Auto) 0.2, Neutrophils # (Auto) 18.9 H, Lymphocytes # (Auto) 1.4 L, Monocytes # (Auto) 0.8, Eosinophils # (Auto) 0.1, Basophils # (Auto) 0.1 11/04/18 05:45 Red Blood Count 5.80 H, Mean Corpuscular Volume 77.4 L, Mean Corpuscular Hemoglobin 23.4 L, Mean Corpuscular Hemoglobin Concent 30.3 L, Red Cell Distribution Width 19.6 H, Calcium Level 9.6 Microbiology Microbiology 11/03/18 Blood Culture, Received Pending 11/03/18 Blood Culture, Received Pending KOBE FULLER MD Nov 04, 2018 13:57
[2018-11-04 14:00] VITALS: BP 137/51
[2018-11-04] MEDS ORDERED: guaiFENesin DM LIQ 10ML UD PO PRN (14:00)
[2018-11-04 18:00] VITALS: BP 166/73
[2018-11-04 22:00] VITALS: BP 152/69
[2018-11-04] MEDS: LATANOPROST 0.005% OPHTH SOLN 2.5 ML OU SCH (22:04)
[2018-11-04] MEDS: ASPIRIN ENTERIC 325 MG TAB PO SCH (22:05)
[2018-11-04] MEDS: SPIRONOLACTONE 25 MG TAB PO SCH (22:05)
[2018-11-04] MEDS: rOPINIRole 0.25 MG TAB(REQUIP) PO SCH (22:05)
[2018-11-05 02:00] VITALS: BP 157/72
[2018-11-05] MEDS: IPRATROPIUM 0.5MG/ALBUTEROL 2.5MG INH SOL UD 3ML (DUONEB)(J7620) NEB SCH ×4 (02:00→20:33)
[2018-11-05] MEDS: HEPARIN SOD (PORCINE) 5000 UNITS/ML VIAL SC SCH ×3 (05:43→21:09)
[2018-11-05] MEDS: methylPREDNISolone INJ 125 MG/2 ML VIAL (J2930) IV SCH ×2 (05:43→21:09)
[2018-11-05 06:00] VITALS: BP 156/75
[2018-11-05 06:54] LABS: HEMATOCRIT 42.3 % (36.0-47.0); MEAN CORPUSCULAR HEMOGLOBIN 24.3 pg (27.0-33.0); MEAN CORPUSCULAR HGB CONC 30.7 g/dl (32.0-36.5); MEAN CORPUSCULAR VOLUME 79.2 fl (80.0-96.0); PLATELET COUNT, AUTOMATED 240 10^3/uL (150-450); RED BLOOD COUNT 5.34 10^6/uL (4.00-5.40); WHITE BLOOD COUNT 20.2 10^3/uL (4.0-10.0)
[2018-11-05 07:35] LABS: ALBUMIN 3.3 GM/DL (3.2-5.2); BILIRUBIN,TOTAL 0.3 MG/DL (0.2-1.0); CALCIUM LEVEL 9.3 MG/DL (8.8-10.2); CREATININE FOR GFR 1.41 MG/DL (0.55-1.30); GLOMERULAR FILTRATION RATE 38.9 (>39); POTASSIUM SERUM 4.4 MEQ/L (3.5-5.1); TOTAL PROTEIN 6.9 GM/DL (6.4-8.2)
[2018-11-05] MEDS: PREGABALIN 100 MG CAP (LYRICA) PO SCH ×2 (08:57→21:10)
[2018-11-05] MEDS: FUROSEMIDE 20 MG TAB PO SCH (08:57)
[2018-11-05] MEDS: DOXYCYCLINE HYCLATE 100 MG TAB PO SCH ×2 (08:57→21:09)
[2018-11-05] MEDS: ALLOPURINOL 300 MG TAB PO SCH (08:57)
[2018-11-05] MEDS: ROSUVASTATIN 10 MG TAB (CRESTOR) PO SCH (08:57)
[2018-11-05] MEDS: MAGNESIUM OXIDE 400 MG TAB (MAG-OX) PO SCH ×2 (08:57→21:10)
[2018-11-05] MEDS: DULoxetine 30 MG CAP (CYMBALTA) PO SCH ×2 (08:57→21:10)
[2018-11-05] MEDS: DEXTROMETHORPHAN 60MG/10ML SUSP 90ML BTL(DELSYM) PO PRN ×2 (08:58→21:12)
[2018-11-05] MEDS: HumuLIN N INSULIN (NovoLIN N) PER UNIT SC SCH ×2 (08:58→21:00)
[2018-11-05] MEDS: HumaLOG INSULIN (NovoLOG) PER UNIT SC SCH ×4 (08:58→21:10)
[2018-11-05] MEDS ORDERED: FUROSEMIDE 40 MG/4 ML VIAL (J1940) IV SCH (09:00)
[2018-11-05] MEDS: NORCO, ANEXSIA 5/325MG TABLET (HYDROcodone/ACETAMINOPHEN) PO PRN ×3 (09:06→22:15)
[2018-11-05 10:00] VITALS: BP 146/56
--- NOTE | 2018-11-05 12:38 | IPNPDOC ---
Subjective Date Seen The patient was seen on 11/05/18. Subjective Chief Complaint/HPI The patient feels better today. Cough has improved, although she is still coughing. No fevers, chills, nausea, or vomiting. No dysuria or urgency. General: Denies: ROS Unobtainable, Chills, Night Sweats, Fatigue, Malaise, No rmal Appetite, Other Symptoms Constitutional: Denies: Chills, Fever, Malaise, Night Sweats, Weakness, Fatigue, Weight Loss, Lethargy, Other Eyes: Denies: Pain, Vision change, Conjunctivae inflammation, Eyelid inflammation, Redness, Other ENT: Denies: Head Aches, Ear Pain, Dysphagia, Sinus Congestion, Post Nasal Drip, Sore Throat, Epistaxis, Other Symptoms Skin: Denies: Rash, Lesions, Jaundice, Bruising, Itching, Dry, Breakdown, Nail Changes, Other Pulmonary: Reports: Dyspnea, Cough Cardiovascular: Denies: Chest Pain, Palpitations, Orthopnea, Paroxysmal Noc. Dyspnea, Edema, Lt Headedness, Other Symptoms Gastrointestinal: Denies: Nausea, Vomiting, Abdominal Pain, Diarrhea, Constipation, Melena, Hematochezia, Other Symptoms Genitourinary: Denies: Dysuria, Frequency, Incontinence, Hematuria, Retention, Other Symptoms Hematologic: Denies: Bruising, Bleeding Excessively, Petecchia, Purpura, Enla rged Lymph Nodes, Other Hematologic Endocrine: Denies: Polydipsia, Polyphagia, Polyuria, Heat Intolerance, Cold Intolerance, Other Endocrine Sx Musculoskeletal: Denies: Neck Pain, Back Pain, Shoulder Pain, Arm Pain, Hand Pain, Leg Pain, Foot Pain, Joint Pain, Muscle Pain, Spasms, Other Symptoms Neurological: Denies: Weakness, Numbness, Incoordination, Change in speech, Confusion, Seizures, Other Symptoms Psych: Denies: Mood Normal, Anxiety, Depression, Memory Issues, Thoughts of Self Harm, Anger, Thoughts of Harming Other, Other Psych Objective Physical Examination General Exam: Positive: Alert Eye Exam: Positive: PERRLA ENT Exam: Positive: Atraumatic, Mucous membr. moist/pink Neck Exam: Positive: Supple Chest Exam: Positive: Wheezing Heart Exam: Positive: Rate Normal Telemetry: Positive: No significant arrhythmia Abdomen Exam: Positive: Normal bowel sounds Extremity Exam: Positive: Edema Skin Exam: Positive: Nl turgor and temperature Neuro Exam: Positive: Normal Speech Psych Exam: Positive: Mood NL Assessment /Plan Problems (1) Hypoxia Status: Acute Problem Text: # Shortness of breath, lower ext edema, cough - This seems to be combination of COPD, CHF, and pulmonary HTN. - Most recent echocardiogram in September this year shows severe pulmonary HTN and LVEF 75%. - She was receiving lasix 40 IV TID, but was decreased to BID, given mildly suppressed renal function. Further decreased to 20 mg PO daily today. She is not hypervolemic. - She was started on amlodipine a few months ago, and she noticed lower extremit y swelling worse from that point. This could be 2/2 worsening pHTN, but R-sided heart EF is preserved. Amlodipine was stopped, and metoprolol 50 BID was started. - She does not have pneumonia, but will cover atypical infection in the setting of COPD exacerbation. Continue doxycycline BID. - Continue breathing treatment and IV solumedrol. # HTN, HLD, DM, DM neuropathy - Continue aspirin full dose. Cont. home medications except for amlodipine. - Cont. insulin sliding scale - Cont. lyrica # Glaucoma - Cont. home med # Depression and mental disorder - Cont. home medications Plan/VTE VTE Prophylaxis Ordered?: Yes (heparin) VS, I&O, 24H, Fishbone Vital Signs/I&O Vital Signs Date Time Temp Pulse Resp B/P (MAP) Pulse Ox O2 Delivery O2 Flow Rate FiO2 11/05/18 10:00 97.7 58 17 146/56 (86) 97 2.0 11/05/18 07:21 Nasal Cannula I&O- Last 24 Hours up to 6 AM 11/05/18 06:00 Intake Total 1200 ml Output Total 2750 ml Balance -1550 ml Laboratory Data 24H LABS Laboratory Tests 2 11/04/18 16:28: Bedside Glucose (Misc Panel) 144H 11/04/18 20:04: Bedside Glucose (Misc Panel) 237H 11/05/18 06:43: Nucleated Red Blood Cells % (auto) 0.0, Anion Gap 7L, Glomerular Filtration Rate 38.9L, Blood Urea Nitrogen 41#H, Creatinine 1.41H, Sodium Level 137, Potassium Level 4.4, Chloride Level 99, Carbon Dioxide Level 31, Calcium Level 9.3, Aspartate Amino Transf (AST/SGOT) 8, Alanine Aminotransferase (ALT/SGPT) 24, Alkaline Phosphatase 72, Total Bilirubin 0.3, Total Protein 6.9, Albumin 3.3, Albumin/Globulin Ratio 0.92L 11/05/18 11:46: Bedside Glucose (Misc Panel) 451H CBC/BMP Laboratory Tests 11/05/18 06:43 Red Blood Count 5.34, Mean Corpuscular Volume 79.2 L, Mean Corpuscular Hemoglobin 24.3 L, Mean Corpuscular Hemoglobin Concent 30.7 L, Red Cell Distribution Width 19.0 H, Calcium Level 9.3, Aspartate Amino Transf (AST/SGOT) 8, Alanine Aminotransferase (ALT/SGPT) 24, Alkaline Phosphatase 72, Total Bilirubin 0.3, Total Protein 6.9, Albumin 3.3 Microbiology Microbiology 11/03/18 Blood Culture - Preliminary, Resulted No growth after 24 hours . All specim... 11/03/18 Blood Culture - Preliminary, Resulted No growth after 24 hours . All specim... KOBE FULLER MD Nov 05, 2018 12:38
[2018-11-05 14:00] VITALS: BP 138/53
[2018-11-05] MEDS: NICOTINE 21MG/24HR 1 EA TRANSDERMAL TD SCH (17:32)
[2018-11-05 18:00] VITALS: BP 103/77
[2018-11-05] MEDS: SPIRONOLACTONE 25 MG TAB PO SCH (21:09)
[2018-11-05] MEDS: LATANOPROST 0.005% OPHTH SOLN 2.5 ML OU SCH (21:10)
[2018-11-05] MEDS: rOPINIRole 0.25 MG TAB(REQUIP) PO SCH (21:10)
--- NOTE | 2018-11-05 21:52 | IPNPDOC ---
Date Seen The patient was seen on 11/05/18. [facility] out [facility] N[facility] that patient takes at home, switch to Levemir 60 units BID. Monitor BS and adjust as needed. ISSA RUELAS MD Nov 05, 2018 21:52
[2018-11-05 22:00] VITALS: BP 136/69
[2018-11-05] MEDS: LEVEMIR (INSULIN DETEMIR) 1 UNITS/0.01ML SC SCH (22:15)
[2018-11-06] MEDS: IPRATROPIUM 0.5MG/ALBUTEROL 2.5MG INH SOL UD 3ML (DUONEB)(J7620) NEB SCH ×4 (01:58→20:42)
[2018-11-06 02:00] VITALS: BP 172/72
[2018-11-06] MEDS: HEPARIN SOD (PORCINE) 5000 UNITS/ML VIAL SC SCH ×3 (05:40→21:59)
[2018-11-06 06:00] VITALS: BP 164/64
[2018-11-06 06:07] LABS: HEMATOCRIT 43.1 % (36.0-47.0); HEMOGLOBIN 13.2 g/dl (12.0-15.5); MEAN CORPUSCULAR HEMOGLOBIN 24.3 pg (27.0-33.0); MEAN CORPUSCULAR HGB CONC 30.6 g/dl (32.0-36.5); MEAN CORPUSCULAR VOLUME 79.4 fl (80.0-96.0); PLATELET COUNT, AUTOMATED 210 10^3/uL (150-450); RED BLOOD COUNT 5.43 10^6/uL (4.00-5.40); WHITE BLOOD COUNT 15.6 10^3/uL (4.0-10.0)
[2018-11-06 06:26] LABS: ALBUMIN 2.9 GM/DL (3.2-5.2); BILIRUBIN,TOTAL 0.3 MG/DL (0.2-1.0); CALCIUM LEVEL 8.4 MG/DL (8.8-10.2); CREATININE FOR GFR 1.32 MG/DL (0.55-1.30); POTASSIUM SERUM 4.4 MEQ/L (3.5-5.1)
[2018-11-06] MEDS: DULoxetine 30 MG CAP (CYMBALTA) PO SCH ×2 (08:26→21:58)
[2018-11-06] MEDS: NIFEdipine 30 MG XL TAB PO SCH (08:28)
[2018-11-06] MEDS: NORCO, ANEXSIA 5/325MG TABLET (HYDROcodone/ACETAMINOPHEN) PO PRN ×3 (08:28→23:12)
[2018-11-06] MEDS: ROSUVASTATIN 10 MG TAB (CRESTOR) PO SCH (08:29)
[2018-11-06] MEDS: ALLOPURINOL 300 MG TAB PO SCH (08:29)
[2018-11-06] MEDS: MAGNESIUM OXIDE 400 MG TAB (MAG-OX) PO SCH ×2 (08:29→21:58)
[2018-11-06] MEDS: PREGABALIN 100 MG CAP (LYRICA) PO SCH ×2 (08:29→21:58)
[2018-11-06] MEDS: FUROSEMIDE 20 MG TAB PO SCH (08:30)
[2018-11-06] MEDS: DOXYCYCLINE HYCLATE 100 MG TAB PO SCH ×2 (08:30→21:58)
[2018-11-06] MEDS: methylPREDNISolone INJ 125 MG/2 ML VIAL (J2930) IV SCH (08:31)
[2018-11-06] MEDS: LEVEMIR (INSULIN DETEMIR) 1 UNITS/0.01ML SC SCH ×2 (08:32→21:59)
[2018-11-06] MEDS: HumaLOG INSULIN (NovoLOG) PER UNIT SC SCH ×4 (08:32→22:00)
[2018-11-06] MEDS: NICOTINE 21MG/24HR 1 EA TRANSDERMAL TD SCH (08:35)
[2018-11-06 10:00] VITALS: BP 151/66
--- NOTE | 2018-11-06 12:06 | IPNPDOC ---
Subjective Date Seen The patient was seen on 11/06/18. Subjective Chief Complaint/HPI Breathing has improved. Mild cough, but overall she feels much improved. No other complaints. She continues to ambulate to the bathroom, but she is physically not very active. General: Denies: ROS Unobtainable, Chills, Night Sweats, Fatigue, Malaise, Normal Appetite, Other Symptoms Constitutional: Denies: Chills, Fever, Malaise, Night Sweats, Weakness, Fatigue, Weight Loss, Lethargy, Other Eyes: Denies: Pain, Vision change, Conjunctivae inflammation, Eyelid inflammation, Redness, Other ENT: Denies: Head Aches, Ear Pain, Dysphagia, Sinus Congestion, Post Nasal Drip, Sore Throat, Epistaxis, Other Symptoms Skin: Denies: Rash, Lesions, Jaundice, Bruising, Itching, Dry, Breakdown, Nail Changes, Other Pulmonary: Reports: Dyspnea, Cough Cardiovascular: Denies: Chest Pain, Palpitations, Orthopnea, Paroxysmal Noc. Dyspnea, Edema, Lt Headedness, Other Symptoms Gastrointestinal: Denies: Nausea, Vomiting, Abdominal Pain, Diarrhea, Constipation, Melena, Hematochezia, Other Symptoms Genitourinary: Denies: Dysuria, Frequency, Incontinence, Hematuria, Retention, Other Symptoms Hematologic: Denies: Bruising, Bleeding Excessively, Petecchia, Purpura, Enlarged Lymph Nodes, Other Hematologic Endocrine: Denies: Polydipsia, Polyphagia, Polyuria, Heat Intolerance, Cold Intolerance, Other Endocrine Sx Musculoskeletal: Denies: Neck Pain, Back Pain, Shoulder Pain, Arm Pain, Hand Pain, Leg Pain, Foot Pain, Joint Pain, Muscle Pain, Spasms, Other Symptoms Neurological: Denies: Weakness, Numbness, Incoordination, Change in speech, Confusion, Seizures, Other Symptoms Psych: Denies: Mood Normal, Anxiety, Depression, Memory Issues, Thoughts of Self Harm, Anger, Thoughts of Harming Other, Other Psych Objective Physical Examination General Exam: Positive: Alert Eye Exam: Positive: PERRLA ENT Exam: Positive: Atraumatic, Mucous membr. moist/pink Neck Exam: Positive: Supple Chest Exam: Positive: Wheezing Heart Exam: Positive: Rate Normal Telemetry: Positive: No significant arrhythmia Abdomen Exam: Positive: Normal bowel sounds Extremity Exam: Positive: Edema Skin Exam: Positive: Nl turgor and temperature Neuro Exam: Positive: Normal Speech Psych Exam: Positive: Mood NL Assessment /Plan Problems (1) Hypoxia Status: Acute Problem Text: # Shortness of breath, lower ext edema, cough - This seems to be combination of COPD, acute on chronic CHF, and pulmonary HTN. - Most recent echocardiogram in September this year shows severe pulmonary HTN and LVEF 75%. - She was receiving lasix 40 IV TID, but was decreased to BID, given mildly suppressed renal function. Further decreased to 20 mg PO daily yesterday. She is not hypervolemic. - She was started on amlodipine a few months ago, and she noticed lower extremity swelling worse from that point. This could be 2/2 worsening pHTN, but R-sided heart EF is preserved. Amlodipine was stopped, and metoprolol 50 BID was started. Given uncontrolled hypertension, nifedipine ER 30 was started. This could have a different side effect profile, and continue to watch lower ext edema. - She does not have pneumonia, but will cover atypical infection in the setting of COPD exacerbation. Continue doxycycline BID. - Improved breathing, will start prednisone from this afternoon, and continue daily. If she is doing well tomorrow, she could be discharged tomorrow afternoon. - Continue PPI given high dose of steroid. # HTN, HLD, DM, DM neuropathy - Continue aspirin full dose. Cont. home medications except for amlodipine. Continue metoprolol 50 BID. - Cont. insulin sliding scale - Cont. lyrica # Glaucoma - Cont. home med # Depression and mental disorder - Cont. home medications # Mild protein calorie malnutrition - Continue to encourage PO intake Plan/VTE VTE Prophylaxis Ordered?: Yes (heparin) VS, I&O, 24H, [facility] Vital Signs/I&O Vital Signs Date Time Temp Pulse Resp B/P (MAP) Pulse Ox O2 Delivery O2 Flow Rate FiO2 11/06/18 10:00 98.0 71 18 151/66 (94) 94 2.0 11/05/18 07:21 Nasal Cannula I&O- Last 24 Hours up to 6 AM 11/06/18 06:00 Intake Total 1170 ml Output Total 1550 ml Balance -380 ml Laboratory Data 24H LABS Laboratory Tests 2 11/05/18 16:49: Bedside Glucose (Misc Panel) 269H 11/05/18 20:37: Bedside Glucose (Misc Panel) 454H 11/06/18 05:20: Bedside Glucose (Misc Panel) 268H 11/06/18 05:23: Nucleated Red Blood Cells % (auto) 0.0, Anion Gap 5L, Glomerular Filtration Rate 42.0, Blood Urea Nitrogen 42H, Creatinine 1.32H, Sodium Level 138, Potassium Level 4.4, Chloride Level 102, Carbon Dioxide Level 31, Calcium Level 8.4L, Aspartate Amino Transf (AST/SGOT) 9, Alanine Aminotransferase (ALT/SGPT) 16, Alkaline Phosphatase 77, Total Bilirubin 0.3, Total Protein 7.0, Albumin 2.9L, Albumin/Globulin Ratio 0.71L CBC/BMP Laboratory Tests 11/06/18 05:23 Red Blood Count 5.43 H, Mean Corpuscular Volume 79.4 L, Mean Corpuscular Hemoglobin 24.3 L, Mean Corpuscular Hemoglobin Concent 30.6 L, Red Cell Di stribution Width 18.6 H, Calcium Level 8.4 L, Aspartate Amino Transf (AST/SGOT) 9, Alanine Aminotransferase (ALT/SGPT) 16, Alkaline Phosphatase 77, Total Bilirubin 0.3, Total Protein 7.0, Albumin 2.9 L Microbiology Microbiology 11/03/18 Blood Culture - Preliminary, Resulted No Growth after 48 hours. All Specime... 11/03/18 Blood Culture - Preliminary, Resulted No Growth after 48 hours. All Specime... KOBE FULLER MD Nov 06, 2018 12:06
[2018-11-06] MEDS ORDERED: PANTOPRAZOLE 40MG INJ (PROTONIX) (C9113) IV ONE (13:00)
[2018-11-06 14:00] VITALS: BP 174/79
[2018-11-06] MEDS ORDERED: predniSONE 20 MG TAB PO ONE (17:00)
[2018-11-06 17:30] VITALS: BP 116/75
[2018-11-06] MEDS: SPIRONOLACTONE 25 MG TAB PO SCH (21:58)
[2018-11-06] MEDS: rOPINIRole 0.25 MG TAB(REQUIP) PO SCH (21:59)
[2018-11-06 22:00] VITALS: BP 166/69
[2018-11-06] MEDS: LATANOPROST 0.005% OPHTH SOLN 2.5 ML OU SCH (22:00)
[2018-11-07 02:00] VITALS: BP 149/72
[2018-11-07] MEDS: IPRATROPIUM 0.5MG/ALBUTEROL 2.5MG INH SOL UD 3ML (DUONEB)(J7620) NEB SCH ×2 (02:00→07:23)
[2018-11-07 06:00] VITALS: BP 165/72
[2018-11-07 06:12] LABS: HEMATOCRIT 41.5 % (36.0-47.0); HEMOGLOBIN 12.7 g/dl (12.0-15.5); MEAN CORPUSCULAR HEMOGLOBIN 23.6 pg (27.0-33.0); MEAN CORPUSCULAR HGB CONC 30.6 g/dl (32.0-36.5); MEAN CORPUSCULAR VOLUME 77.3 fl (80.0-96.0); PLATELET COUNT, AUTOMATED 226 10^3/uL (150-450); RED BLOOD COUNT 5.37 10^6/uL (4.00-5.40); WHITE BLOOD COUNT 14.4 10^3/uL (4.0-10.0)
[2018-11-07] MEDS: HEPARIN SOD (PORCINE) 5000 UNITS/ML VIAL SC SCH (06:21)
[2018-11-07 06:36] LABS: ALBUMIN 2.9 GM/DL (3.2-5.2); BILIRUBIN,TOTAL 0.3 MG/DL (0.2-1.0); CALCIUM LEVEL 8.2 MG/DL (8.8-10.2); CREATININE FOR GFR 1.16 MG/DL (0.55-1.30); GLOMERULAR FILTRATION RATE 48.8 (>39); POTASSIUM SERUM 4.5 MEQ/L (3.5-5.1); TOTAL PROTEIN 6.7 GM/DL (6.4-8.2)
[2018-11-07] MEDS ORDERED: PANTOPRAZOLE 40MG TAB (PROTONIX) PO SCH (07:00)
[2018-11-07] MEDS: HumaLOG INSULIN (NovoLOG) PER UNIT SC SCH ×2 (07:50→11:41)
[2018-11-07] MEDS: LEVEMIR (INSULIN DETEMIR) 1 UNITS/0.01ML SC SCH (07:50)
[2018-11-07] MEDS: ALLOPURINOL 300 MG TAB PO SCH (07:51)
[2018-11-07] MEDS: FUROSEMIDE 20 MG TAB PO SCH (07:51)
[2018-11-07] MEDS: PREGABALIN 100 MG CAP (LYRICA) PO SCH (07:51)
[2018-11-07] MEDS: ROSUVASTATIN 10 MG TAB (CRESTOR) PO SCH (07:51)
[2018-11-07] MEDS: NICOTINE 21MG/24HR 1 EA TRANSDERMAL TD SCH (07:51)
[2018-11-07 07:52] VITALS: BP 158/80
[2018-11-07] MEDS: NIFEdipine 30 MG XL TAB PO SCH (07:52)
[2018-11-07] MEDS: DOXYCYCLINE HYCLATE 100 MG TAB PO SCH (07:52)
[2018-11-07] MEDS: DULoxetine 30 MG CAP (CYMBALTA) PO SCH (07:52)
[2018-11-07] MEDS: MAGNESIUM OXIDE 400 MG TAB (MAG-OX) PO SCH (07:52)
[2018-11-07] MEDS: NORCO, ANEXSIA 5/325MG TABLET (HYDROcodone/ACETAMINOPHEN) PO PRN (07:53)
[2018-11-07] MEDS ORDERED: predniSONE 20 MG TAB PO SCH (09:00)
[2018-11-07 10:00] VITALS: BP 160/70
[2018-11-07] MEDS ORDERED: NICO21PAT TD (10:07)
[2018-11-07] MEDS ORDERED: PRED10TA2 PO (10:07)
[2018-11-07] MEDS ORDERED: DOXY100T PO (10:07)
[2018-11-07] MEDS ORDERED: INSUN SC (16:13)
--- NOTE | 2018-11-07 16:19 | DS.PDOC ---
Discharge Summary General Date of Admission Nov 03, 2018 at 19:54 Date of Discharge 11/07/2018 Attending Physician: EVERARDO FOUNTAIN MD Specialist/Consultants Involve Primary care provider: Kurt Stanley MD Discharge Summary PROCEDURES PERFORMED DURING STAY: None. ADMITTING DIAGNOSES: 1. COPD exacerbation. 2. HFpEF. 3. DM. 4. HTN. DISCHARGE DIAGNOSES: 1. COPD exacerbation. 2. Acute on chronic HFpEF. 3. Pulmonary HTN. 4. HTN. 5. DLP. 6. DM with neuropathy. 7. Glaucoma. 8. Depression. COMPLICATIONS/CHIEF COMPLAINT: Chf, Copd Exacerbation. HISTORY OF PRESENT ILLNESS: Ms. Julio is a 73-year-old female with past medical history of COPD on 2 L home O2, HFpEF, CAD, HTN, DM, RLS, gout presented to the ER with complaints of worsening SOB. Of note, patient has been admitted and discharged recently for similar complaints and was treated for HF/COPD with improvement. She reports worsening LE swelling, cough and LE edema. She also reports feeling unwell overall but otherwise denies any other specific complaints including chest pain, fever, chills. She is on chronic steroid at home of 10 mg Prednisone. States that she feels this is more COPD. HOSPITAL COURSE: Patient was admitted for COPD exacerbation and started on SoluMedrol and Duoneb's. Started patient on IV Furosemide and held home diuretics. Continued home insulin regimen and blood pressure medications. Amlodipine was discontinued due to lower extremity edema. She was started on Metoprolol 50mg PO BID. Patient was covered with Doxycycline for atypical infection. Insulin was adjusted to Levemir 60 units BID. Nifedipine ER 30 was admitted for blood pressure control. Adjusted to oral Prednisone. Patient was discharged with remaining course of Doxycycline, an oral Prednisone taper, and Nicotine replacement patches. Her Amlodipine was discontinued. Other home medications remained the same. DISCHARGE MEDICATIONS: Please see below. ALLERGIES: Please see below. PHYSICAL EXAMINATION ON DISCHARGE: VITAL SIGNS: Please see below. GENERAL: Well nourished, well developed female, alert and conversant, no acute distress. HEENT: Atraumatic, normocephalic, PERRL, EOMI, wears spectacles, oral mucosa pink and moist, nares are patent. NECK: Soft, supple, trachea midline. CARDIOVASCULAR EXAMINATION: Regular rate and rhythm, normal S1 and S2, no murmur, rub, click. RESPIRATORY EXAMINATION: Improvement in wheezing. ABDOMINAL EXAMINATION: Round, soft, non-tender, non-distended. EXTREMITIES: No clubbing, no cyanosis, B/L LE edema. SKIN: Warm, dry, intact. NEUROLOGICAL EXAMINATION: CN II-XII grossly intact. PSYCHIATRIC EXAMINATION: Mood and affect appropriate. LABORATORY DATA: Please see below. IMAGIN. Portable chest x-ray - Cardiomegaly with interstitial edema/fibrosis. This needs to be correlated clinically with appropriate followup. Consider PA and lateral views of the chest. 2. Bilateral lower extremity duplex ultrasound - No evidence of deep venous thrombosis of the bilateral lower extremity femoral popliteal venous system. 3. CT chest without contrast - Stable chronic fibrotic changes of the lungs. Stable left superior mediastinal mass and stable mediastinal adenopathy. PROGNOSIS: Stable. ACTIVITY: As tolerated; 4-wheeled walker. DIET: COPD + consistent carbohydrate. DISCHARGE PLAN: Problem: Managing health at home Goal: Improve health & wellness Instructions: Follow DC Instruction DISPOSITION: 01 Home, Self-Care. DISCHARGE INSTRUCTIONS: 1. Follow-up appointment - Dr. Kurt Stanley on 11/10/2018 at 1:30pm. 2. Check daily weights. 3. Resume home care. 4. Return to the ED if your symptoms worsen or persist. 5. Consider moving in with daughter or alternative living arrangement. ITEMS TO FOLLOWUP ON ON OUTPATIENT: 1. COPD exacerbation. 2. Hypertension. 3. Tobacco dependence. 4. Diabetes management. DISCHARGE CONDITION: Stable. TIME SPENT ON DISCHARGE: Greater than 30 minutes. Vital Signs/I&Os Vital Signs Date Time Temp Pulse Resp B/P (MAP) Pulse Ox O2 Delivery O2 Flow Rate FiO2 11/07/18 10:00 98.3 83 20 160/70 (100) 91 2.0 11/05/18 07:21 Nasal Cannula I&O- Last 24 Hours up to 6 AM 11/07/18 06:00 Intake Total 890 ml Output Total 2100 ml Balance -1210 ml Laboratory Data Labs 24H Laboratory Tests 2 11/06/18 16:45: Bedside Glucose (Misc Panel) 224H 11/06/18 20:36: Bedside Glucose (Misc Panel) 274H 11/07/18 06:01: Nucleated Red Blood Cells % (auto) 0.0, Anion Gap 3L, Glomerular Filtration Rate 48.8, Blood Urea Nitrogen 37H, Creatinine 1.16, Sodium Level 139, Potassium Level 4.5, Chloride Level 103, Carbon Dioxide Level 33H, Calcium Level 8.2L, Aspartate Amino Transf (AST/SGOT) 10, Alanine Aminotransferase (ALT/SGPT) 20, Alkaline Phosphatase 67, Total Bilirubin 0.3, Total Protein 6.7, Albumin 2.9L, Albumin/Globulin Ratio 0.76L CBC/BMP Laboratory Tests 11/07/18 06:01 Red Blood Count 5.37, Mean Corpuscular Volume 77.3 L, Mean Corpuscular Hemoglobin 23.6 L, Mean Corpuscular Hemoglobin Concent 30.6 L, Red Cell Distribution Width 18.4 H, Calcium Level 8.2 L, Aspartate Amino Transf (AST/SGOT) 10, Alanine Aminotransferase (ALT/SGPT) 20, Alkaline Phosphatase 67, Total Bilirubin 0.3, Total Protein 6.7, Albumin 2.9 L FSBS Laboratory Tests Test 11/06/18 16:45 11/06/18 20:36 Range/Units Bedside Glucose (Misc Panel) 224 274 83-110 MG/DL Microbiology Microbiology 11/03/18 Blood Culture - Preliminary, Resulted No Growth after 72 hours. All specime... 11/03/18 Blood Culture - Preliminary, Resulted No Growth after 72 hours. All specime... Discharge Medications Scheduled Acetaminophen (Acetaminophen) 500 Mg Tablet, 1,000 MG PO QHS, (Reported) Allopurinol (Zyloprim) 300 Mg Tab, 300 MG PO DAILY, (Reported) Aspirin (Aspirin EC) 325 Mg Tabec, 325 MG PO QHS, (Reported) Calcitriol (Calcitriol) 0.25 Mcg Cap, 0.25 MCG PO 3XW, (Reported) TAKES TUESDAY, TUESDAY AND TUESDAY MORNINGS Cyclosporine (Restasis) 0.05% Droperette, 1 DROP OU BID, (Reported) Doxycycline Hyclate (Doxycycline Hyclate) 100 Mg Tablet, 100 MG PO BID Duloxetine Hcl (Duloxetine HCl) 60 Mg Cap, 60 MG PO BID, (Reported) Furosemide (Furosemide) 20 Mg Tablet, 20 MG PO QPM, (Reported) TAKES AT 1630 Furosemide (Furosemide) 80 Mg Tablet, 80 MG PO DAILY, (Reported) Insulin Human NPH (Novolin N) 1 Ml Susp, 80 UNITS SC BID, (Reported) Latanoprost (Xalatan) 0.005% 2.5ML Drops, 1 DROP OU QHS, (Reported) Magnesium Oxide (Magnesium Oxide) 400 Mg Tab, 400 MG PO BID, (Reported) Melatonin (Melatonin) 5 Mg Tablet, 5 MG PO QHS, (Reported) Nicotine (Nicotine Patch) 21 Mg Patch.td24, 1 PATCH TD DAILY Prednisone (Prednisone) 10 Mg Tab, 10 MG PO DAILY, (Reported) Prednisone (Prednisone) 10 Mg Tablet, 10 MG PO TAPER 4 tabs daily x3 days, 3 tabs daily x3 days, 2 tabs daily x3 days, 1 tab daily x3 days, continue home dose Pregabalin (Lyrica) 200 Mg Cap, 200 MG PO BID, (Reported) Ranitidine HCl (Ranitidine HCl) 150 Mg Tablet, 1 TAB PO DAILY, (Reported) Ropinirole HCl (Requip) 0.25 Mg Tablet, 0.5 MG PO QHS, (Reported) Rosuvastatin Calcium (Crestor) 20 Mg Tab, 20 MG PO DAILY, (Reported) Spironolactone (Spironolactone) 25 Mg Tab, 25 MG PO QHS, (Reported) Umeclidinium [place] (Incruse Ellipta) 62.5 Mcg Blst.w.dev, 1 PUFF INH DAILY, (Reported) Scheduled PRN Albuterol Sulf (Albuterol Sulfate) 2.5 Mg/3 Ml Nebu, 1 INH INH Q4H PRN for SHORTNESS OF BREATH, (Reported) Albuterol Sulfate (Ventolin Hfa) 108 Mcg/Act Aer, 2 PUFFS INH Q4H PRN for SHORTNESS OF BREATH, (Reported) Hydrocodone/Acetaminophen (Hydrocodone-Acetamin 10-325 mg) 1 Tab Tab, 1 TAB PO Q6H PRN for PAIN, (Reported) Nitroglycerin (Nitrostat) 0.4 Mg Subl, 0.4 MG SL NITRO PRN for CHEST PAIN, (Reported) Nystatin (Nyamyc) 15 Gm Powder, 1 DOSE TOP BID PRN for REDNESS/IRRITATION, (Reported) APPLY TO UNDER BREASTS AND GROIN Allergies Coded Allergies: TAPE (Verified Allergy, Unknown, 10/25/18) GRACY VANG DO Nov 07, 2018 16:19
== END 2018-11-07 12:38 | disposition home or self-care (01) | DRG 190 ==
LOC: M ED 13:17 → M ED INP 19:54 → M MSPAV 22:22
PROVIDERS: ADMIT Student in an Organized Health Care Education/Training Program; ATTEND Internal Medicine
DX: J44.1 Chronic obstructive pulmonary disease with (acute) exacerbation (principal); I50.21 Acute systolic (congestive) heart failure; E44.1 Mild protein-calorie malnutrition; E11.40 Type 2 diabetes mellitus with diabetic neuropathy, unspecified; I11.0 Hypertensive heart disease with heart failure; F32.9 Major depressive disorder, single episode, unspecified; I27.20 Pulmonary hypertension, unspecified; H40.9 Unspecified glaucoma; M10.9 Gout, unspecified; G25.81 Restless legs syndrome; F17.200 Nicotine dependence, unspecified, uncomplicated; Z79.4 Long term (current) use of insulin; Z79.899 Other long term (current) drug therapy; I25.10 Atherosclerotic heart disease of native coronary artery without angina pectoris

== ENCOUNTER 2018-12-13 23:00 | Observation (INO) | payer MEDICARE, MEDICAID ==
[~2018-12-13] VITALS: Ht 157.5 cm; Wt 83.0 kg
[~2018-12-13 23:00] MED LIST changes: -NOVOINJ13 SC; -TORS20TA2 PO
[2018-12-14 00:36] LABS: BASO # 0.1 10^3/uL (0.0-0.2); BASO % 0.3 % (0.0-1.0); EOS % 0.1 % (0.0-3.0); HEMATOCRIT 48.4 % (36.0-47.0); HEMOGLOBIN 15.2 g/dl (12.0-15.5); LYMPH # 2.2 10^3/uL (1.5-4.5); LYMPH % 12.2 % (24.0-44.0); MEAN CORPUSCULAR HEMOGLOBIN 25.2 pg (27.0-33.0); MEAN CORPUSCULAR HGB CONC 31.4 g/dl (32.0-36.5); MEAN CORPUSCULAR VOLUME 80.4 fl (80.0-96.0); MONO # 1.2 10^3/uL (0.0-0.8); MONO % 6.3 % (0.0-5.0); NEUTROPHILS # 14.7 10^3/uL (1.8-7.7); NEUTROPHILS % 80.2 % (36.0-66.0); PLATELET COUNT, AUTOMATED 179 10^3/uL (150-450); RED BLOOD COUNT 6.02 10^6/uL (4.00-5.40); WHITE BLOOD COUNT 18.4 10^3/uL (4.0-10.0)
[2018-12-14 01:04] LABS: CALCIUM LEVEL 9.2 MG/DL (8.8-10.2); CK-MB VALUE MASS 5.9 NG/ML (<3.6); CREATININE FOR GFR 1.52 MG/DL (0.55-1.30); FREE T4 0.81 NG/DL (0.76-1.46); GLOMERULAR FILTRATION RATE 35.7 (>39); MAGNESIUM LEVEL 2.9 MG/DL (1.8-2.4); MB/CK RELATIVE INDEX 6.7 (< OR =4); POTASSIUM SERUM 3.7 MEQ/L (3.5-5.1); THYROID STIMULATING HORMONE 1.49 uIU/ML (0.358-3.740); TROPONIN I 0.05 NG/ML (< 0.10)
--- NOTE | 2018-12-14 02:42 | REPVR ---
EXAM: CT Cervical Spine Without Contrast EXAM DATE/TIME: 12/14/18 (12:56am) CLINICAL HISTORY: 73 year old female. Pain. Trauma. TECHNIQUE: Imaging protocol: Computed tomography images of the cervical spine without contrast. Coronal and sagittal reformatted images were created and reviewed. Radiation optimization: All CT scans at this facility use at least one of these dose optimization techniques: automated exposure control; mA and/or kV adjustment per patient size (includes targeted exams where dose is matched to clinical indication); or iterative reconstruction. COMPARISON: CT CERVICAL SPINE of 01/15/15 FINDINGS: Vertebrae: No acute fracture. Normal alignment. Discs/Spinal canal/Neural foramina: No spinal stenosis. No neural foraminal narrowing. Soft tissues: Unremarkable. Lungs: Lung apices are normal. IMPRESSION: No acute findings. Electronically signed by: Rosa Cool On 12/14/2018 02:42:02 AM
--- NOTE | 2018-12-14 02:48 | REPVR ---
EXAM: CT Chest Without Contrast EXAM DATE/TIME: 12/14/18 (12:56am) CLINICAL HISTORY: 73 year old female. Injury or trauma. Initial encounter. Abrasion. TECHNIQUE: Imaging protocol: Axial computed tomography images of the chest without intravenous contrast. Coronal and sagittal reformatted images were created and reviewed. 3D rendering: MIP reconstructed images were created and reviewed. Radiation optimization: All CT scans at this facility use at least one of these dose optimization techniques: automated exposure control; mA and/or kV adjustment per patient size (includes targeted exams where dose is matched to clinical indication); or iterative reconstruction. COMPARISON: CT CHEST of 11/03/18 FINDINGS: Lungs: No masses. Scattered streaky parenchymal changes (perhaps old scarring, eg). No dense consolidation. Pleural space: Unremarkable. No pneumothorax. No pleural effusions. Heart: Cardiomegaly. No pericardial effusion. Aorta: Unremarkable. No aortic aneurysm. Lymph nodes: Nonspecific mediastinal nodes. Bones/joints: No acute fracture. Previous posterior lumbar spine fusion surgery. Soft tissues: Unremarkable. Upper abdomen: Previous cholecystectomy. IMPRESSION: No acute findings. Previous cholecystectomy. Electronically signed by: Rosa Cool On 12/14/2018 02:48:47 AM
--- NOTE | 2018-12-14 02:52 | REPVR ---
EXAM: CT Head Without Contrast EXAM DATE/TIME: 12/14/18 (12:56am) CLINICAL HISTORY: 73 year old female. Trauma. Pain. TECHNIQUE: Imaging protocol: Computed tomography images of the head without contrast. Radiation optimization: All CT scans at this facility use at least one of these dose optimization techniques: automated exposure control; mA and/or kV adjustment per patient size (includes targeted exams where dose is matched to clinical indication); or iterative reconstruction. COMPARISON: CT HEAD of 08/04/15 FINDINGS: Brain: No acute hemorrhage. No cerebral edema. Age-appropriate atrophic changes are noted. Periventricular and subcortical areas of low attenuation, compatible with small vessel microischemic changes. Ventricles: Normal. No ventriculomegaly. Bones/joints: Unremarkable. No acute fracture. Sinuses: Visualized sinuses are unremarkable. No fluid levels. Mastoid air cells: Visualized mastoid air cells are well aerated. No mastoid effusion. Soft tissues: Unremarkable. IMPRESSION: No acute intracranial pathology is appreciated. Chronic atrophic and microischemic changes are noted. Electronically signed by: Rosa Cool On 12/14/2018 02:51:56 AM
[2018-12-14 03:15] VITALS: O2SAT 87
[2018-12-14] MEDS ORDERED: methylPREDNISolone INJ 125 MG/2 ML VIAL (J2930) IV ONE (03:45)
[2018-12-14] MEDS ORDERED: IPRATROPIUM 0.5MG/ALBUTEROL 2.5MG INH SOL UD 3ML (DUONEB)(J7620) NEB ONE (03:45)
[2018-12-14] MEDS ORDERED: FURO40TA2 PO ×2 (04:10)
[2018-12-14] MEDS ORDERED: ALBU83IN INH (04:10)
[2018-12-14] MEDS ORDERED: NOVOINJ13 SC (04:10)
[2018-12-14] MEDS ORDERED: NEXI40CA PO (04:10)
[2018-12-14] MEDS ORDERED: AMLO10TA5 PO (04:10)
[2018-12-14] MEDS ORDERED: GLUCAGON FOR INJ 1 MG VIAL (J1610) SC PRN (04:15)
[2018-12-14] MEDS ORDERED: MAALOX 30 ML SUSP *UDC PO PRN (04:15)
[2018-12-14] MEDS ORDERED: DEXTROSE 50% 50 ML SYRINGE IV PRN (04:15)
[2018-12-14] MEDS ORDERED: MOM 30ML SUSPENSION UDC PO PRN (04:15)
[2018-12-14] MEDS ORDERED: GLUCOSE 4 GM CHEW TABLET PO PRN (04:15)
[2018-12-14] MEDS ORDERED: ALBUTEROL SULFATE 2.5 MG/0.5 ML INH NEB SOLN NEB PRN (04:15)
--- NOTE | 2018-12-14 04:23 | HPEPDOC ---
General Date of Admission 12/14/18 Date of Service: Dec 14, 2018 Primary Care Physician: АНДРЕЙ GARCIA MD Attending Physician: URSULA LANCE MD Chief Complaint The patient is a 73-year-old female admitted with a reason for visit of Blood Sugar Issue. Source: Patient Exam Limitations: No limitations Timing/Duration: 4-6 hours Severity: Moderate Associated Symptoms: Other (altered mental status) History of Present Illness 73 years old, obese, white female with past medical history of diabetes mellitus, COPD, syncope on home oxygen 2 L nasal cannula active smoker, was found by EMS outside in the street in a wheelchair lethargic and confused. She was found to have blood sugar of 39, and O2 saturation of 80% on room air, hence was brought to the to the ED for further workup. As per patient, she was doing her dinner shopping at 12:00 and she did not travel with her oxygen tank is too heavy. Patient denies any trauma, injury any drugs or any other medications. ED, patient's blood sugar improved after oranges and some food, but she is still complaining of shortness of breath as being admitted with exacerbation of COPD Home Medications Scheduled Acetaminophen (Acetaminophen) 500 Mg Tablet, 1,000 MG PO QHS, (Reported) Allopurinol (Zyloprim) 300 Mg Tab, 300 MG PO DAILY, (Reported) Aspirin (Aspirin EC) 325 Mg Tabec, 325 MG PO QHS, (Reported) Calcitriol (Calcitriol) 0.25 Mcg Cap, 0.25 MCG PO 3XW, (Reported) TAKES TUESDAY, TUESDAY AND TUESDAY MORNINGS Cyclosporine (Restasis) 0.05% Droperette, 1 DROP OU BID, (Reported) Doxycycline Hyclate (Doxycycline Hyclate) 100 Mg Tablet, 100 MG PO BID Duloxetine Hcl (Duloxetine HCl) 60 Mg Cap, 60 MG PO BID, (Reported) Furosemide (Furosemide) 20 Mg Tablet, 20 MG PO QPM, (Reported) TAKES AT 1630 Furosemide (Furosemide) 80 Mg Tablet, 80 MG PO DAILY, (Reported) Insulin Human NPH (Novolin N) 1 Ml Susp, 80 UNITS SC BID Latanoprost (Xalatan) 0.005% 2.5ML Drops, 1 DROP OU QHS, (Reported) Magnesium Oxide (Magnesium Oxide) 400 Mg Tab, 400 MG PO BID, (Reported) Melatonin (Melatonin) 5 Mg Tablet, 5 MG PO QHS, (Reported) Nicotine (Nicotine Patch) 21 Mg Patch.td24, 1 PATCH TD DAILY Prednisone (Prednisone) 10 Mg Tab, 10 MG PO DAILY, (Reported) Prednisone (Prednisone) 10 Mg Tablet, 10 MG PO TAPER 4 tabs daily x3 days, 3 tabs daily x3 days, 2 tabs daily x3 days, 1 tab daily x3 days, continue home dose Pregabalin (Lyrica) 200 Mg Cap, 200 MG PO BID, (Reported) Ranitidine HCl (Ranitidine HCl) 150 Mg Tablet, 1 TAB PO DAILY, (Reported) Ropinirole HCl (Requip) 0.25 Mg Tablet, 0.5 MG PO QHS, (Reported) Rosuvastatin Calcium (Crestor) 20 Mg Tab, 20 MG PO DAILY, (Reported) Spironolactone (Spironolactone) 25 Mg Tab, 25 MG PO QHS, (Reported) Umeclidinium [place] (Incruse Ellipta) 62.5 Mcg Blst.w.dev, 1 PUFF INH DAILY, (Reported) Scheduled PRN Albuterol Sulf (Albuterol Sulfate) 2.5 Mg/3 Ml Nebu, 1 INH INH Q4H PRN for SHORTNESS OF BREATH, (Reported) Albuterol Sulfate (Ventolin Hfa) 108 Mcg/Act Aer, 2 PUFFS INH Q4H PRN for SHORTNESS OF BREATH, (Reported) Hydrocodone/Acetaminophen (Hydrocodone-Acetamin 10-325 mg) 1 Tab Tab, 1 TAB PO Q6H PRN for PAIN, (Reported) Nitroglycerin (Nitrostat) 0.4 Mg Subl, 0.4 MG SL NITRO PRN for CHEST PAIN, (Reported) Nystatin (Nyamyc) 15 Gm Powder, 1 DOSE TOP BID PRN for REDNESS/IRRITATION, (Reported) APPLY TO UNDER BREASTS AND GROIN Allergies Coded Allergies: TAPE (Verified Allergy, Unknown, 12/13/18) Past Medical History Medical History As per HPI Surgical History Right distal clavicle surgery, L4, L3 decompression, left knee joint. Debridement, 4 laminectomies , cholecystectomy, hysterectomy with BSO Family History Significant Family History: No pertinent family hx Social History * Smoker: current smoker Alcohol: Denies Drugs: denies A-FIB/CHADSVASC A-FIB History Current/History of A-Fib/PAF?: No Review of Systems Constitutional: Denies: Chills, Fever, Malaise, Night Sweats, Weakness, Fatigue, Weight Loss, Lethargy, Other Eyes: Denies: Pain, Vision change ENT: Denies: Head Aches, Ear Pain, Dysphagia, Sinus Congestion, Post Nasal Drip, Sore Throat, Epistaxis, Other Symptoms Skin: Denies: Rash, Lesions, Breakdown Pulmonary: Reports: Dyspnea Cardiovascular: Denies: Chest Pain, Palpitations, Orthopnea, Paroxysmal Noc. Dyspnea, Edema, Lt Headedness, Other Symptoms Gastrointestinal: Denies: Nausea, Vomiting, Abdominal Pain, Diarrhea, Con stipation, Melena, Hematochezia, Other Symptoms Genitourinary: Denies: Dysuria, Frequency, Incontinence, Hematuria, Retention, Other Symptoms Hematologic: Denies: Bruising, Bleeding Excessively, Petecchia, Purpura, Enlarged Lymph Nodes, Other Hematologic Endocrine: Denies: Polydipsia, Polyphagia, Polyuria, Heat Intolerance, Cold Int olerance, Other Endocrine Sx Musculoskeletal: Denies: Neck Pain, Back Pain, Shoulder Pain, Arm Pain, Hand Pain, Leg Pain, Foot Pain, Joint Pain, Muscle Pain, Spasms, Other Symptoms Neurological: Denies: Weakness, Numbness, Incoordination, Change in speech, Confusion, Seizures, Other Symptoms Psych: Denies: Mood Normal, Anxiety, Depression, Memory Issues, Thoughts of Self Harm, Anger, Thoughts of Harming Other, Other Psych Physical Examination General Exam: Positive: Alert, Cooperative Eye Exam: Positive: PERRLA, Conjunctiva & lids normal ENT Exam: Positive: Atraumatic, Mucous membr. moist/pink Neck Exam: Positive: Supple, JVD Chest Exam: Positive: Wheezing Heart Exam: Positive: Rate Normal, Normal S1, Normal S2 Abdomen Exam: Positive: Normal bowel sounds, Soft Skin Exam: Positive: Nl turgor and temperature Neuro Exam: Positive: Normal Gait, Cranial Nerves 3-12 NL Psych Exam: Positive: Mental status NL, Oriented x 3 Vital Signs Vital Signs Date Time Temp Pulse Resp B/P (MAP) Pulse Ox O2 Delivery O2 Flow Rate FiO2 12/14/18 03:15 87 Nasal Cannula 12/14/18 03:01 97.0 74 18 150/67 (94) 3.0 Laboratory Data Labs 24H Laboratory Tests 2 12/14/18 00:29: Immature Granulocyte % (Auto) 0.9, White Blood Count 18.4H, Red Blood Count 6.02H, Hemoglobin 15.2, Hematocrit 48.4H, Mean Corpuscular Volume 80.4, Mean Corpuscular Hemoglobin 25.2L, Mean Corpuscular Hemoglobin Concent 31.4L, Red Cell Distribution Width 20.7H, Platelet Count 179, Neutrophils (%) (Auto) 80.2H, Lymphocytes (%) (Auto) 12.2L, Monocytes (%) (Auto) 6.3H, Eosinophils (%) (Auto) 0.1, Basophils (%) (Auto) 0.3, Neutrophils # (Auto) 14.7H, Lymphocytes # (Auto) 2.2, Monocytes # (Auto) 1.2H, Eosinophils # (Auto) 0.0, Basophils # (Auto) 0.1, Nucleated Red Blood Cells % (auto) 0.1H, Anion Gap 7L, Glomerular Filtration Rate 35.7L, Blood Urea Nitrogen 26H, Creatinine 1.52H, Sodium Level 142, Potassium Level 3.7, Chloride Level 103, Carbon Dioxide Level 32, Calcium Level 9.2, Total Creatine Kinase 88, Magnesium Level 2.9H, Creatine Kinase MB 5.9H, Creatine Kinase MB Relative Index 6.70H, Troponin I 0.05, Thyroid Stimulating Hormone (TSH) 1.490, Free Thyroxine 0.81 12/14/18 00:32: Bedside Glucose (Misc Panel) 40L 12/14/18 01:37: Bedside Glucose (Misc Panel) 66L 12/14/18 03:13: Bedside Glucose (Misc Panel) 148H CBC/BMP Laboratory Tests 12/14/18 00:29 Red Blood Count 6.02 H, Mean Corpuscular Volume 80.4, Mean Corpuscular Hemog lobin 25.2 L, Mean Corpuscular Hemoglobin Concent 31.4 L, Red Cell Distribution Width 20.7 H, Neutrophils (%) (Auto) 80.2 H, Lymphocytes (%) (Auto) 12.2 L, Monocytes (%) (Auto) 6.3 H, Eosinophils (%) (Auto) 0.1, Basophils (%) (Auto) 0.3, Neutrophils # (Auto) 14.7 H, Lymphocytes # (Auto) 2.2, Monocytes # (Auto) 1.2 H, Eosinophils # (Auto) 0.0, Basophils # (Auto) 0.1, Calcium Level 9.2, Total Creatine Kinase 88 Problems (1) COPD exacerbation Onset Date: 05/24/2014 Status: Acute Problem Text: Admit to medical floor with telemetry with T4 per continuous pulse ox monitoring O2 support Patient received a loading dose of steroids in ED Continue Solu-Medrol as per orders DuoNeb scheduled and as needed basis Continue home meds, once the med rec is completed by pharmacy Diabetic diet Activity as tolerated Due to prophylaxis with heparin (2) Hypoglycemia Status: Acute Problem Text: Secondary to noncompliance Blood sugar is under well control now Will start fingerstick blood sugar every before meals and at bedtime and with coverage Restart home long-acting insulin dose once the med rec record is completed by pharmacy Plan / VTE VTE Prophylaxis Ordered?: Yes URSULA LANCE MD Dec 14, 2018 04:23
--- NOTE | 2018-12-14 05:44 | ECGEPIP ---
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
--- NOTE | 2018-12-14 07:13 | REP ---
Left tibia-fibula two views : There is no fracture or dislocation. Mineralization and joint spaces are normal. There are no calcifications or foreign bodies. Impression: Negative Left tibia-fibula . Electronically Signed by Dominic Mckenna MD 12/14/2018 07:05 A
[2018-12-14] MEDS: HumaLOG INSULIN (NovoLOG) PER UNIT SC SCH ×4 (07:30→23:32)
[2018-12-14] MEDS: DOCUSATE SODIUM 100 MG CAP PO SCH ×2 (08:32→22:24)
[2018-12-14] MEDS: ACETAMINOPHEN TAB 650MG DOSE (2X325MG) PO PRN ×2 (08:32→13:01)
[2018-12-14] MEDS: HEPARIN SOD (PORCINE) 5000 UNITS/ML VIAL SC SCH ×2 (08:32→22:25)
[2018-12-14] MEDS: IPRATROPIUM 0.5MG/ALBUTEROL 2.5MG INH SOL UD 3ML (DUONEB)(J7620) NEB SCH ×3 (08:39→20:45)
[2018-12-14] MEDS ORDERED: predniSONE 10 MG TAB PO SCH (09:00)
[2018-12-14 11:40] VITALS: BP 103/54
[2018-12-14] MEDS ORDERED: methylPREDNISolone INJ 125 MG/2 ML VIAL (J2930) IV SCH (12:00)
[2018-12-14 14:00] VITALS: BP 175/85
[2018-12-14] MEDS: ALLOPURINOL 300 MG TAB PO SCH ×2 (15:54→18:23)
[2018-12-14] MEDS: ROSUVASTATIN 10 MG TAB (CRESTOR) PO SCH ×2 (15:54→18:23)
[2018-12-14] MEDS: PANTOPRAZOLE 40MG TAB (PROTONIX) PO SCH ×2 (15:54→18:23)
[2018-12-14] MEDS: TORSEMIDE 20 MG TAB PO SCH (18:21)
[2018-12-14] MEDS: amLODIPine 10 MG TAB PO SCH (18:21)
[2018-12-14] MEDS ORDERED: diphenhydrAMINE INJ 50MG/ML VIAL (J1200) IV PRN (18:30)
[2018-12-14] MEDS ORDERED: NYSTATIN 100,000 UNITS/GM TOPICAL PWD 15 GM TOP PRN (18:30)
--- NOTE | 2018-12-14 18:34 | IPNPDOC ---
Text Note Date of Service The patient was seen on 12/14/18. NOTE S: patient seen with granddaughter in room and spoke with daughter on phone. patient non compliant and left house to go to store on her electric wheelchair without oxygen (because too big to carry on chair) and did not eat (was going to store to get something to eat). She states her PCP told her to take NPH whether she eats or not, and whether her blood sugar is high or low. She states 7 of 10 blood sugars are low on her monitor - mostly in the morning. Med rec reveiwed with patient and family: patient is on torsemide - not lasix takes 81mg asa not 325 O: Vitals as below General : Pleasant, NAD AAOx3 HRRR LCTA no W/R/R Ext: no edema A/P: Leukocytosis probably leukamoid reaction from hypoxia/hypoglycemia no antibiotics at this time. repeat in AM (may be elevated due to steroids) COPD exacerbation - resolved. 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 Recommend holding NPH if blood sugars below 100 and to cover high sugars with SSI. Discussed possible outpatient referral to [facility] for DM management and they will discuss with PCP. Anticipate d/c tomorrow VS,Pamela, I+O VS, Pamela, I+O Laboratory Tests 12/14/18 00:29 Red Blood Count 6.02 H, Mean Corpuscular Volume 80.4, Mean Corpuscular Hemoglobin 25.2 L, Mean Corpuscular Hemoglobin Concent 31.4 L, Red Cell Distribution Width 20.7 H, Neutrophils (%) (Auto) 80.2 H, Lymphocytes (%) (Auto) 12.2 L, Monocytes (%) (Auto) 6.3 H, Eosinophils (%) (Auto) 0.1, Basophils (%) (Auto) 0.3, Neutrophils # (Auto) 14.7 H, Lymphocytes # (Auto) 2.2, Monocytes # (Auto) 1.2 H, Eosinophils # (Auto) 0.0, Basophils # (Auto) 0.1, Calcium Level 9.2, Total Creatine Kinase 88 Vital Signs Date Time Temp Pulse Resp B/P (MAP) Pulse Ox O2 Delivery O2 Flow Rate FiO2 12/14/18 11:40 97.1 65 20 103/54 (70) 95 2.0 12/14/18 06:53 Nasal Cannula ARMEN BOLANOS DO Dec 14, 2018 15:10
[2018-12-14] MEDS ORDERED: HumaLOG INSULIN (NovoLOG) PER UNIT SC STA (18:36)
[2018-12-14] MEDS ORDERED: LEVEMIR (INSULIN DETEMIR) 1 UNITS/0.01ML SC SCH (21:00)
[2018-12-14 22:00] VITALS: BP 152/73
[2018-12-14] MEDS: MAGNESIUM OXIDE 400 MG TAB (MAG-OX) PO SCH (22:23)
[2018-12-14] MEDS: SPIRONOLACTONE 25 MG TAB PO SCH (22:24)
[2018-12-14] MEDS: DULoxetine 30 MG CAP (CYMBALTA) PO SCH (22:24)
[2018-12-14] MEDS: ASPIRIN 81 MG ENTERIC TAB PO SCH (22:24)
[2018-12-14] MEDS: rOPINIRole 0.25 MG TAB(REQUIP) PO SCH (22:24)
[2018-12-14] MEDS: PREGABALIN 100 MG CAP (LYRICA) PO SCH (22:24)
[2018-12-14] MEDS: ACETAMINOPHEN 500 MG TAB PO SCH (22:25)
[2018-12-14] MEDS: LATANOPROST 0.005% OPHTH SOLN 2.5 ML OU SCH ×2 (22:27→23:31)
[2018-12-14] MEDS: NORCO, ANEXSIA 5/325MG TABLET (HYDROcodone/ACETAMINOPHEN) PO PRN (22:49)
[2018-12-15] MEDS: IPRATROPIUM 0.5MG/ALBUTEROL 2.5MG INH SOL UD 3ML (DUONEB)(J7620) NEB SCH ×4 (02:00→20:00)
[2018-12-15] MEDS ORDERED: HumaLOG INSULIN (NovoLOG) PER UNIT SC ONE (03:45)
[2018-12-15 05:55] LABS: HEMATOCRIT 42.7 % (36.0-47.0); HEMOGLOBIN 13.4 g/dl (12.0-15.5); MEAN CORPUSCULAR HEMOGLOBIN 25.2 pg (27.0-33.0); MEAN CORPUSCULAR HGB CONC 31.4 g/dl (32.0-36.5); MEAN CORPUSCULAR VOLUME 80.4 fl (80.0-96.0); PLATELET COUNT, AUTOMATED 166 10^3/uL (150-450); RED BLOOD COUNT 5.31 10^6/uL (4.00-5.40); WHITE BLOOD COUNT 13.4 10^3/uL (4.0-10.0)
[2018-12-15 06:00] VITALS: BP 162/79
[2018-12-15 06:12] LABS: HEMOGLOBIN A1c 8.4 %
[2018-12-15 06:18] LABS: ALBUMIN 3.2 GM/DL (3.2-5.2); BILIRUBIN,TOTAL 0.3 MG/DL (0.2-1.0); CREATININE FOR GFR 1.37 MG/DL (0.55-1.30); GLOMERULAR FILTRATION RATE 40.2 (>39); MAGNESIUM LEVEL 2.4 MG/DL (1.8-2.4); TOTAL PROTEIN 6.8 GM/DL (6.4-8.2)
[2018-12-15] MEDS: NORCO, ANEXSIA 5/325MG TABLET (HYDROcodone/ACETAMINOPHEN) PO PRN ×2 (08:52→23:41)
[2018-12-15] MEDS: TORSEMIDE 20 MG TAB PO SCH ×2 (08:53→18:22)
[2018-12-15] MEDS: DULoxetine 30 MG CAP (CYMBALTA) PO SCH ×2 (08:53→21:45)
[2018-12-15] MEDS: MAGNESIUM OXIDE 400 MG TAB (MAG-OX) PO SCH ×2 (08:53→21:45)
[2018-12-15] MEDS: PREGABALIN 100 MG CAP (LYRICA) PO SCH ×2 (08:53→21:44)
[2018-12-15] MEDS: ALLOPURINOL 300 MG TAB PO SCH (08:53)
[2018-12-15] MEDS: ROSUVASTATIN 10 MG TAB (CRESTOR) PO SCH (08:53)
[2018-12-15] MEDS: predniSONE 10 MG TAB PO SCH (08:53)
[2018-12-15] MEDS: PANTOPRAZOLE 40MG TAB (PROTONIX) PO SCH (08:53)
[2018-12-15] MEDS: amLODIPine 10 MG TAB PO SCH (08:53)
[2018-12-15] MEDS: DOCUSATE SODIUM 100 MG CAP PO SCH ×3 (08:54→21:45)
[2018-12-15] MEDS: HumaLOG INSULIN (NovoLOG) PER UNIT SC SCH ×4 (08:54→21:46)
[2018-12-15] MEDS: HEPARIN SOD (PORCINE) 5000 UNITS/ML VIAL SC SCH ×2 (08:54→21:43)
[2018-12-15] MEDS ORDERED: LEVEMIR (INSULIN DETEMIR) 1 UNITS/0.01ML SC SCH (09:00)
[2018-12-15] MEDS ORDERED: FAMOTIDINE 20 MG TAB PO SCH (09:00)
[2018-12-15] MEDS: NYSTATIN 100,000 UNITS/GM TOPICAL PWD 15 GM TOP SCH ×2 (12:14→21:43)
[2018-12-15] MEDS ORDERED: LEVEMIR (INSULIN DETEMIR) 1 UNITS/0.01ML SC ONE (13:00)
--- NOTE | 2018-12-15 13:20 | IPNPDOC ---
Text Note Date of Service The patient was seen on 12/15/18. NOTE S: patient states feels fine and hoping to go home. She has had significantly elevated blood sugars (300-400) during the night and given 10unit levemir last night and this AM with minimal improvement. She is on SSI. States no SOB, no CP, no cough, no REIS, no vision changes, no N, no V. Patient is on insulin NPH 80 unit BID at home that caused significant hypoglycemia. O: VITAL BELOW General : Pleasant, NAD AAOx3 HRRR LCTA no W/R/R abdomen soft NT ND Ext no edema to pretibia or ankles A/P: Leukocytosis probably leukamoid reaction from hypoxia/hypoglycemia - IMPROVED no antibiotics at this time. repeat in AM (may be elevated due to IV steroids) COPD exacerbation - resolved. due to hypoxic episode from not wearing oxygen and outdoor ambient temperature/humidity D/C IV solumedrol and continue with home prednisone dose 10mg daily continue nebs, oxygen (at baseline 2 liter). outpatient PCP and family working on getting portable oxygen concentrator Diabetes -on fci insulin with hypoglycemia discussed with patient and family basal insulin vs NPH. Recommend holding NPH at home if blood sugars below 100 and to cover high sugars with SSI. sta rted on LOW dose detemir last night with blood sugar above 300. Will give detemir 40 units BID and anticipate d/c tomorrow if BS more stable. Discussed possible outpatient referral to [facility] for DM management and they will discuss with PCP. VS,Emeteriobone, I+O VS, Fishbone, I+O Laboratory Tests 12/15/18 05:28 Red Blood Count 5.31, Mean Corpuscular Volume 80.4, Mean Corpuscular Hemoglobin 25.2 L, Mean Corpuscular Hemoglobin Concent 31.4 L, Red Cell Distribution Width 20.1 H, Calcium Level 9.0, Aspartate Amino Transf (AST/SGOT) 7, Alanine Amino transferase (ALT/SGPT) 19, Alkaline Phosphatase 84, Total Bilirubin 0.3, Total Protein 6.8, Albumin 3.2 Vital Signs Date Time Temp Pulse Resp B/P (MAP) Pulse Ox O2 Delivery O2 Flow Rate FiO2 12/15/18 09:22 18 12/15/18 08:53 76 162/79 12/15/18 08:00 2.0 12/15/18 06:00 97.1 93 12/14/18 06:53 Nasal Cannula I&O- Last 24 Hours up to 6 AM 12/15/18 06:00 Intake Total 2430 ml Output Total 1200 ml Balance 1230 ml ARMEN BOLANOS DO Dec 15, 2018 12:54
[2018-12-15 14:00] VITALS: BP 150/74
[2018-12-15] MEDS: rOPINIRole 0.25 MG TAB(REQUIP) PO SCH (21:45)
[2018-12-15] MEDS: ACETAMINOPHEN 500 MG TAB PO SCH (21:45)
[2018-12-15] MEDS: ASPIRIN 81 MG ENTERIC TAB PO SCH (21:45)
[2018-12-15] MEDS: SPIRONOLACTONE 25 MG TAB PO SCH (21:45)
[2018-12-15] MEDS: LEVEMIR (INSULIN DETEMIR) 1 UNITS/0.01ML SC SCH (21:47)
[2018-12-15 22:00] VITALS: BP 124/75
[2018-12-16] MEDS: IPRATROPIUM 0.5MG/ALBUTEROL 2.5MG INH SOL UD 3ML (DUONEB)(J7620) NEB SCH ×2 (02:00→07:33)
[2018-12-16 06:00] VITALS: BP 129/78
[2018-12-16] MEDS: HumaLOG INSULIN (NovoLOG) PER UNIT SC SCH ×2 (07:30→12:41)
[2018-12-16] MEDS: NORCO, ANEXSIA 5/325MG TABLET (HYDROcodone/ACETAMINOPHEN) PO PRN (08:46)
[2018-12-16] MEDS: ALLOPURINOL 300 MG TAB PO SCH ×2 (08:50→09:19)
[2018-12-16] MEDS: HEPARIN SOD (PORCINE) 5000 UNITS/ML VIAL SC SCH (08:50)
[2018-12-16] MEDS: DULoxetine 30 MG CAP (CYMBALTA) PO SCH (08:50)
[2018-12-16] MEDS: ROSUVASTATIN 10 MG TAB (CRESTOR) PO SCH ×2 (08:50→09:23)
[2018-12-16] MEDS: TORSEMIDE 20 MG TAB PO SCH (08:50)
[2018-12-16] MEDS: predniSONE 10 MG TAB PO SCH (08:51)
[2018-12-16] MEDS: PANTOPRAZOLE 40MG TAB (PROTONIX) PO SCH ×2 (08:52→09:19)
[2018-12-16] MEDS: amLODIPine 10 MG TAB PO SCH ×2 (08:52→09:19)
[2018-12-16] MEDS: MAGNESIUM OXIDE 400 MG TAB (MAG-OX) PO SCH ×2 (08:52→09:19)
[2018-12-16] MEDS: DOCUSATE SODIUM 100 MG CAP PO SCH ×2 (08:52→09:23)
[2018-12-16] MEDS: PREGABALIN 100 MG CAP (LYRICA) PO SCH ×2 (08:53→09:19)
[2018-12-16] MEDS: NYSTATIN 100,000 UNITS/GM TOPICAL PWD 15 GM TOP SCH (09:00)
[2018-12-16 09:19] VITALS: BP 129/78
[2018-12-16] MEDS: LEVEMIR (INSULIN DETEMIR) 1 UNITS/0.01ML SC SCH (09:20)
[2018-12-16] MEDS ORDERED: TORS20TA2 PO (11:17)
--- NOTE | 2018-12-16 11:27 | DS.PDOC ---
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 HISTORY OF PRESENT ILLNESS: 73 years old, obese, white female with past medical history of diabetes mellitus, COPD, syncope on home oxygen 2 L nasal cannula active smoker, was found by EMS outside in the street in a wheelchair lethargic and confused. She was found to have blood sugar of 39, and O2 saturation of 80% on room air, hence was brought to the to the ED for further workup. As per patient, she was doing her dinner shopping at 12:00 and she did not travel with her oxygen tank is too heavy. Patient denies any trauma, injury any drugs or any other medications. ED, patient's blood sugar improved after oranges and some food, but she is still complaining of shortness of breath as being admitted with exacerbation of COPD. see H&P for details HOSPITAL COURSE: patient was placed under observation , hypoglycemia treated and her blood sugars ranged from 80-400 during hospitalization and were difficult to control. She is using 80 unit NPH BID and although HgA1c is good, she is experiencing hypoglycemia on frequent bases. Her oxygenation and COPD improved with restarting her baseline oxygen dose. IV steroids were stopped after first day and she was resumed on her usual oral steroid dose. Discussed importance of compliance with patient to avoid hospitalizations (she left her home without oxygen, did not eat breakfast or lunch on day of admission). Patient demonstarted good verbal understanding and is being discharged in stable and improved condition. DISCHARGE MEDICATIONS: Please see below. ALLERGIES: Please see below. PHYSICAL EXAMINATION ON DISCHARGE: VITAL SIGNS: Please see below. General: pleasant, NAD AAOx3 HRRR LCTA Ext: no edema Abdomen obese, NT ND NABS ACTIVITY: as tolerated DIET: consistant carb DISCHARGE PLAN: discharge home DISCHARGE INSTRUCTIONS: do not take NPH if BS before 100; use 1/2 dose NPH if BS is below 150; keep using sliding scale insulin recommend follow up at [facility] DISCHARGE CONDITION:stable TIME SPENT ON DISCHARGE: 29 minutes. Vital Signs/I&Os Vital Signs Date Time Temp Pulse Resp B/P (MAP) Pulse Ox O2 Delivery O2 Flow Rate FiO2 12/16/18 09:19 83 129/78 12/16/18 09:16 16 12/16/18 08:46 2.0 12/16/18 06:00 98.0 94 12/14/18 06:53 Nasal Cannula I&O- Last 24 Hours up to 6 AM 12/16/18 06:00 Intake Total 2740 ml Output Total 200 ml Balance 2540 ml Laboratory Data Labs 24H Laboratory Tests 2 12/15/18 12:00: Bedside Glucose (Misc Panel) 403H 12/15/18 12:02: Bedside Glucose (Misc Panel) 389H 12/15/18 17:32: Bedside Glucose (Misc Panel) 340H 12/15/18 20:38: Bedside Glucose (Misc Panel) 356H 12/16/18 06:54: Bedside Glucose (Misc Panel) 89 12/16/18 09:57: Bedside Glucose (Misc Panel) 362H FSBS Laboratory Tests Test 12/15/18 12:00 12/15/18 12:02 12/15/18 17:32 12/15/18 20:38 Range/Units Bedside Glucose (Misc Panel) 403 389 340 356 83-110 MG/DL Test 12/16/18 06:54 12/16/18 09:57 Range/Units Bedside Glucose (Misc Panel) 89 362 83-110 MG/DL Discharge Medications Scheduled Acetaminophen (Acetaminophen) 500 Mg Tablet, 1,000 MG PO QHS, (Reported) Allopurinol (Zyloprim) 300 Mg Tab, 300 MG PO DAILY, (Reported) Amlodipine Besylate (Amlodipine Besylate) 10 Mg Tablet, 10 MG PO DAILY, (Reported) Aspirin (Aspirin EC) 325 Mg Tabec, 325 MG PO QHS, (Reported) Calcitriol (Calcitriol) 0.25 Mcg Cap, 0.25 MCG PO 3XW, (Reported) TAKES TUESDAY, TUESDAY AND TUESDAY MORNINGS Cyclosporine (Restasis) 0.05% Droperette, 1 DROP OU BID, (Reported) Duloxetine Hcl (Duloxetine HCl) 60 Mg Cap, 60 MG PO BID, (Reported) Esomeprazole Magnesium (Nexium) 40 Mg Capsule.dr, 40 MG PO DAILY, (Reported) Furosemide (Furosemide) 40 Mg Tablet, 40 MG PO BID, (Reported) Insulin NPH Human Isophane (Novolin N) 100 Unit/1 Ml Vial, 80 UNITS SC BID, (Reported) Latanoprost (Xalatan) 0.005% 2.5ML Drops, 1 DROP OU QHS, (Reported) Magnesium Oxide (Magnesium Oxide) 400 Mg Tab, 400 MG PO BID, (Reported) Melatonin (Melatonin) 5 Mg Tablet, 5 MG PO QHS, (Reported) Prednisone (Prednisone) 10 Mg Tab, 10 MG PO DAILY, (Reported) Pregabalin (Lyrica) 200 Mg Cap, 200 MG PO BID, (Reported) Ranitidine HCl (Ranitidine HCl) 150 Mg Tablet, 1 TAB PO DAILY, (Reported) Ropinirole HCl (Requip) 0.25 Mg Tablet, 0.5 MG PO QHS, (Reported) Rosuvastatin Calcium (Crestor) 20 Mg Tab, 20 MG PO DAILY, (Reported) Spironolactone (Spironolactone) 25 Mg Tab, 25 MG PO QHS, (Reported) Torsemide (Torsemide) 20 Mg Tablet, 40 MG PO BID@ no prescription given - has medication at home Umeclidinium Letts (Incruse Ellipta) 62.5 Mcg Blst.w.dev, 1 PUFF INH DAILY, (Reported) Scheduled PRN Albuterol Sulf (Albuterol Sulfate) 2.5 Mg/3 Ml Vial.neb, 2.5 MG INH Q4H PRN for SHORTNESS OF BREATH, (Reported) Albuterol Sulfate (Ventolin Hfa) 108 Mcg/Act Aer, 2 PUFFS INH Q4H PRN for SHORT NESS OF BREATH, (Reported) Hydrocodone/Acetaminophen (Hydrocodone-Acetamin 10-325 mg) 1 Tab Tab, 1 TAB PO Q6H PRN for PAIN, (Reported) Nitroglycerin (Nitrostat) 0.4 Mg Subl, 0.4 MG SL NITRO PRN for CHEST PAIN, (Reported) Nystatin (Nyamyc) 15 Gm Powder, 1 DOSE TOP BID PRN for REDNESS/IRRITATION, (Reported) APPLY TO UNDER BREASTS AND GROIN Allergies Coded Allergies: TAPE (Verified Allergy, Unknown, 12/13/18) ARMEN BOLANOS DO Dec 16, 2018 11:27
== END 2018-12-16 13:37 | disposition home health service (06) ==
LOC: M ED 23:00 → M ED INP 23:01 → M MSPAV 12-14 13:24
PROVIDERS: ADMIT Internal Medicine; ATTEND Family Medicine
DX: J44.1 Chronic obstructive pulmonary disease with (acute) exacerbation (principal); E11.649 Type 2 diabetes mellitus with hypoglycemia without coma; Z91.11 Patient's noncompliance with dietary regimen; D72.829 Elevated white blood cell count, unspecified; J96.11 Chronic respiratory failure with hypoxia; Z99.81 Dependence on supplemental oxygen; Z79.82 Long term (current) use of aspirin; Z79.52 Long term (current) use of systemic steroids; Z79.899 Other long term (current) drug therapy; E66.9 Obesity, unspecified; F17.210 Nicotine dependence, cigarettes, uncomplicated; M79.605 Pain in left leg
CPT/HCPCS: 36415; 70450; 71250; 72125; 73590; 80048; 80053; 82550; 82553; 82947; 83036; 83735; 84439; 84443; 84484; 85025; 85027; 93005; 93041; 94640; 94760; 96372; 96374; 96376; 99285; G0378; G0463; J2930

== ENCOUNTER → 2018-12-13 | Outpatient (CLI) | payer MEDICARE, MEDICAID ==
[~2018-12-13] MED LIST changes: +DOXY100T PO; -DULO1CAP3 PO; +DULO1CAP6 PO; +FURO20TA2 PO; +MELA5TAB7 PO; +NICO21PAT TD; +NOVOINJ13 SC; +TORS20TA2 PO
--- NOTE | 2018-12-28 01:39 | ECWPNPC ---
PATIENT NAME: ROSALVA MOSES : 1945 GENDER: FEMALE VISIT DATE: 12/13/2018 DISCHARGE DATE: 12/13/18 1354 VISIT LOCKED DATE TIME: PHYSICIAN: NOE VALLEJO RESOURCE: NOE VALLEJO REASON FOR APPOINTMENT 1. BACK HISTORY OF PRESENT ILLNESS HISTORY OF PRESENT ILLNESS: 72 Y/O FEMALE WITH HX OF CHRONIC LBP AND BILAT. 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 CURRENTLY USING LYRICA 200MG BID AND HYDROCODONE 10/325 UP TO 4X DAY PRN FOR SEVERE PAIN WITH GOOD EFFECT. REPORTS IMPROVED ACTIVITY TOLERANCE.HX OF MULTIPLE COMORBIDITIES AND HOSPITALIZATIONS.COMPLAINING SEVERE NIGHTTIME CRAMPING 2-3 NIGHTS PER WEEK. PAIN THE PATIENT DESCRIBES THE PAIN... THE PATIENT DESCRIBES THE PAIN... THE PATIENT DESCRIBES THE PAIN... THE PATIENT DESCRIBES THE PAIN... THE PATIENT DESCRIBES THE PAIN... THE PATIENT DESCRIBES THE PAIN... THE PATIENT DESCRIBES THE PAIN... THE PATIENT DESCRIBES THE PAIN... THE PATIENT DESCRIBES THE PAIN... THE PATIENT DESCRIBES THE PAIN... THE PATIENT DESCRIBES THE PAIN... THE PATIENT DESCRIBES THE PAIN... THE PATIENT DESCRIBES THE PAIN... THE PATIENT DESCRIBES THE PAIN... FALL RISK SCREENING: SCREENING :NO FALLS REPORTED IN THE LAST YEAR CURRENT MEDICATIONS TAKING SPIRIVA HANDIHALER 18 MCG CAPSULE 1 CAPSULE INHALATION ONCE A DAY NEEDED TAKING PREDNISONE 10 MG TABLET 1 TABLET ORALLY ONCE A DAY TAKING RANITIDINE HCL 150 MG CAPSULE 1 CAPSULE ORALLY ONCE A DAY TAKING CALCITRIOL 0.25 MCG CAPSULE 1 CAPSULE ORALLY MON, WED, TUE TAKING CYMBALTA 60 MG CAPSULE DELAYED RELEASE PARTICLES 1 CAPSULE ORALLY TWICE A DAY TAKING HUMULIN N 100 UNIT/ML SUSPENSION 70 UNITS SUBCUTANEOUS BID TAKING NITROGLYCERIN 0.4 MG TABLET SUBLINGUAL SUBLINGUAL DIRECTED TAKING CRESTOR 20 MG TABLET 1 TABLET ORALLY ONCE A DAY AT BEDTIME TAKING MAGNESIUM 500 MG TABLET 2 TABLET WITH A MEAL ORALLY BID TAKING SPIRONOLACTONE 25 MG TABLET 1 TABLET ORALLY ONCE A DAY TAKING NEXIUM 40 MG 1 CAPSULE ORALLY ONCE A DAY TAKING ACETAMINOPHEN EXTRA STRENGTH 500 MG TABLET 1-2 TABLET NEEDED ORALLY EVERY 8 HRS TAKING AMLODIPINE BESYLATE 5 MG TABLET 1 TABLET ORALLY ONCE A DAY TAKING OXYGEN 2 LITERS/MIN NASAL CANNULA TAKING LYRICA 200 MG CAPSULE 1 CAPSULE ORALLY BID MDD2 TAKING ROPINIROLE HCL 0.25 MG TABLET 1TO 2 ORALLY BEFORE BEDTIME TAKING HYDROCODONE-ACETAMINOPHEN 10-325 MG TABLET 1 TABLET NEEDED ORALLY Q6H PRN MDD4 TAKING ASPIRIN 81 81 MG TABLET DELAYED RELEASE 1 TABLET ORALLY ONCE A DAY NOT-TAKING VITAMIN D (ERGOCALCIFEROL) 35098 UNIT CAPSULE 1 CAPSULE ORALLY ONCE A DAY NOT-TAKING ZOLPIDEM 5 MG TABLET 1 TAB(S) ORAL QHS NOT-TAKING METOPROLOL TARTRATE 25 MG TABLET 1 TABLET ORALLY TWICE A DAY NOT-TAKING ADVAIR DISKUS 250-50 MCG/DOSE AEROSOL POWDER BREATH ACTIVATED 1 PUFF INHALATION TWICE A DAY NOT-TAKING PROAIR HFA 108 (90 BASE) MCG/ACT AEROSOL SOLUTION 1 PUFF INHALATION EVERY 4-6 HOURS NEEDED NOT-TAKING ALLOPURINOL 300 MG TABLET 1 TABLET ORALLY ONCE A DAY NOT-TAKING CALCIUM 600 + D 600-200 MG-UNIT TABLET 1 TABLET WITH A MEAL ORALLY ONCE A DAY NOT-TAKING ROSUVASTATIN CALCIUM 20 MG TABLET 1 TABLET ORALLY ONCE A DAY NOT-TAKING ZANTAC 150 MG TABLET 1 TABLET ORALLY DAILY NOT-TAKING MUCINEX 600 MG TABLET EXTENDED RELEASE 12 HOUR 1 TABLET NEEDED ORALLY EVERY 12 HRS, NOTES: NOT LATELY DISCONTINUED LASIX 40 MG TABLET 2 TABLET ORALLY BID DISCONTINUED ASPIRIN 325 MG TABLET 1 TABLET ORALLY ONCE A DAY DISCONTINUED LYRICA 200 MG CAPSULE 1 CAPSULE ORALLY BID MDD=2 MEDICATION LIST REVIEWED AND RECONCILED WITH THE PATIENT PAST MEDICAL HISTORY CONGESTIVE HEART FAILURE HYPERTENSION 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 SURGICAL HISTORY ANTERIOR POSTERIOR FUSION BACK SURGERY 12/28 LEFT FOOT NERVE ENTRAPMENT BACK SURGERY 1999 BACK SURGERY TOTAL HYSTERECTOMY CHOLECYSTECTOMY RIGHT SHOULDER SURGERY LEFT LOWER LEG VENOUS STRIPPING FAMILY HISTORY FATHER: DIAGNOSED WITH HYPERTENSION MOTHER: DIABETES, HYPERTENSION SOCIAL HISTORY GENERAL: TOBACCO USE ARE YOU A:CURRENT SMOKER ARE YOU INTERESTED IN QUITTING?NOT READY TO QUIT HAS CUT DOWN ON # OF CIGARETTES/DAY COUNSELED THE PATIENT ON SMOKING EFFECTS, EDUCATION [id number]/17/2019 HOW MANY CIGARETTES A DAY DO YOU SMOKE?11-20 HOW SOON AFTER YOU WAKE UP DO YOU SMOKE YOUR FIRST CIGARETTE?6-30 MIN HOW OFTEN DO YOU SMOKE CIGARETTES?EVERY DAY PATIENT COUNSELED ON THE DANGERS OF TOBACCO USE AND URGED TO QUIT:02/27/2018 OTHERS AT HOME: NONE. HOUSING: RENTS APARTMENT. DIET: REGULAR, NO ADDED SALT. LANGUAGE LANGUAGES SPOKEN:SYRIAC NO DOMESTIC VIOLENCE . NEW PATIENT PAIN DIARY TODAY'S VISITNOTES FROM 0-10, WHAT LEVEL IS YOUR PAIN TODAY?8 RECREATIONAL DRUG USE DRUG USE?NO EXERCISE: NONE. LEARNING BARRIERS / SPECIAL NEEDS ORIENTED TO PLAN OF CARE: PATIENT, PAIN MANAGEMENT PATIENT, ORIENTED TO PLAN OF CARE: PATIENT, PAIN MANAGEMENT PATIENT. PAIN CLINIC PFS, CLERGY, PUBLIC HEALTH REFERRALS PFS REFERRAL NEEDED?NO CLERGY REFERRAL NEEDED?NO PUBLIC HEALTH REFERRAL NEEDED?NO WAS THE PROVIDER NOTIFIED OF ANY PERTINENT INFO?NO N/A HAS THE PATIENT BEEN EDUCATED REGARDING HIS/HER PLAN OF CARE?YES HAS THE PATIENT BEEN EDUCATED REGARDING PAIN, THE RISK FOR PAIN, THE IMPORTANCE OF EFFECTIVE PAIN MANAGEMENT, AND THE PAIN ASSESSMENT PROCESS?YES CAFFEINE CAFFEINE USE?YES HOW OFTEN AND HOW MUCH? 2 CUPS COFFEE PER DAY ADVANCE DIRECTIVE ADVANCE DIRECTIVE DISCUSSED WITH PATIENT:YES DECLINED INFO AND ASSISTANCE WITH HCP FORM AT THIS TIME. 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 REVIEWED WITH PT 07/03/18 1349 BV. HOSPITALIZATION/MAJOR DIAGNOSTIC PROCEDURE SURGERY RELATED CONGESTIVE HEART FAILURE AND REDUCED KIDNEY FUNCTION 10/2017 REVIEW OF SYSTEMS REVIEWED BY: PROVIDER: NOE STINSON . CONSTITUTIONAL: ANY CHANGE IN YOUR MEDICAL CONDITION? NO . CHILLS NO . FEVER NO . INFECTION: DO YOU HAVE NEW INFECTIONS? NO . DO YOU HAVE HISTORY OF MRSA? NO . MUSCULOSKELETAL: ANY NEW PATTERNS OF PAIN OR NUMBNESS? NO . GASTROENTEROLOGY: ANY NEW CHANGE IN BOWEL CONTROL? NO . GENITOURINARY: ANY NEW CHANGE IN BLADDER CONTROL? NO . IS THERE A CHANCE YOU COULD BE ? NO . HEMATOLOGY/LYMPH: DO YOU TAKE ANY BLOOD THINNERS? (FOR EXAMPLE- COUMADIN, PLAVIX, AGGRENOX, PLATEL, PRADAXA, OR XARELTO) NO . WHEN WAS YOUR LAST DOSE? DATE: TIME: . NEUROLOGY: HAVE YOU FALLEN IN THE PAST 12 MONTHS? NO . ANY NEW EXTREMITY NUMBNESS OR WEAKNESS? NO . CARDIOLOGY: DO YOU HAVE A PACEMAKER OR DEFIBRILLATOR? NO . RESPIRATORY: HAVE YOU BEEN SICK IN THE PAST WEEK? NO . FEVER NO . FLU LIKE SYMPTOMS? NO . COUGH NO . INTEGUMENTARY: DO YOU HAVE ANY RASHES OR OPEN SORES? NO . ALLERGIC/IMMUNO: ARE YOU ALLERGIC TO IV DYE? NO . ANY NEW ALLERGIES? NO . PSYCHIATRIC: DO YOU HAVE THOUGHTS OF HURTING YOURSELF OR SOMEONE ELSE? NO . ARE YOU ABUSED, NEGLECTED, OR IN AN UNSAFE ENVIRONMENT? NO . ENDOCRINOLOGY: ARE YOU DIABETIC? YES . OTHER: DO YOU NEED ANY PRESCRIPTIONS? YES, LYRICA, NORCO, ROPINEROLE . IF YES, PLEASE LIST: ____ . ANY NEW PROBLEMS WITH YOUR MEDICATIONS? NO . WHEN DID YOU LAST EAT? ____ . WHEN DID YOU LAST DRINK? ____ . WHAT DID YOU LAST DRINK? ____ . NAME OF PERSON DRIVING YOU HOME? ____ . DO YOU HAVE ANY OTHER QUESTIONS OR CONCERNS YES ,WILL BE RECEIVING SHINGLES VACCINE SOON . VITAL SIGNS WT 186 LBS, HT 63 IN, BMI 32.94 INDEX, BP 156/70 MM HG, HR 81 /MIN, RR 16 /MIN, TEMP 95.9 F, OXYGEN SAT % 90 ON 2L NC, REVIEWED BY: EM. EXAMINATION GENERAL EXAMINATION: GENERAL AWAKE,ALERT ,PLEAASANT . PSYCH AFFECT NORMAL . LUNGS: LUNG MCMAHON DIMINISHED BILAT.NO RSPIRATORY DISTRESS.ON O2 2L. HEART: S1, S2 IN A REGULAR RATE AND RHYTHM. NO SIGNIFICANT MURMURS, RUBS OR GALLOPS NOTED . ASSESSMENTS POST LAMINECTOMY SYNDROME - M96.1 TREATMENT POST LAMINECTOMY SYNDROME REFILL LYRICA CAPSULE, 200 MG, 1 CAPSULE, ORALLY, BID MDD2, 30 DAY(S), 60, REFILLS 2 CONTINUE ROPINIROLE HCL TABLET, 0.25 MG, 1TO 2, ORALLY, BEFORE BEDTIME REFILL HYDROCODONE-ACETAMINOPHEN TABLET, 10-325 MG, 1 TABLET NEEDED, ORALLY, Q6H PRN MDD4, 30 DAY(S), 120, REFILLS 0 NOTES: ISTOP REGISTRY REVIEWED AND DEMONSTRATES COMPLLIANCE. BRINGS IN MEDICATIONS WHICH IS APPROPRIATE FOR WHAT WAS DISPENSED. RECENT URINE TOXICOLOGY REVIEWED. NO UNAUTHORIZED MEDICATIONS. NO ILLICIT SUBSTANCES AND PRESCRIBED MEDICATIONS WERE PRESENT. , RISKS AND BENEFITS OF NARCOTIC/OPIOD MEDICATIONS WERE REVIEWED WITH PATIENT - THIS INCLUDES BUT IS NOT LIMITED TO RISK OF DEPENDANCE/DEVELOPMENT OF ADDICTION, MOOD DISTURBANCE AND DEPRESSION, OSTEOPOROSIS, HORMONAL AND LABIDAL CHANGES, RESPIRATORY DEPRESSION AND . PATIENT IS ADVISED NOT TO DRIVE OR DRINK ALCOHOL WHILE ON THESE MEDICATIONS. PROCEDURE CODES FA211 ESTABILISHED PATIENT [facility] FACILITY CHARGE DISPOSITION & COMMUNICATION FOLLOW UP 3 MONTHS ELECTRONICALLY SIGNED BY MILAD BUENO ON 12/27/2018 AT 04:10 PM EDT DISCLAIMER : THIS IS A VISIT SUMMARY EXTRACTED FROM THE [employer] CHART. IT IS NOT A COPY OF THE [employer] PROGRESS NOTE. CAROL ANND
== END ==
LOC: M PAIN 13:15
PROVIDERS: ATTEND Nurse Practitioner Family
DX: M96.1 Postlaminectomy syndrome, not elsewhere classified (principal); I50.9 Heart failure, unspecified; I11.0 Hypertensive heart disease with heart failure; E78.00 Pure hypercholesterolemia, unspecified; E11.9 Type 2 diabetes mellitus without complications; M48.061 Spinal stenosis, lumbar region without neurogenic claudication; F17.210 Nicotine dependence, cigarettes, uncomplicated; Z98.1 Arthrodesis status; Z90.710 Acquired absence of both cervix and uterus; Z90.49 Acquired absence of other specified parts of digestive tract; Z79.52 Long term (current) use of systemic steroids; Z79.4 Long term (current) use of insulin; Z79.82 Long term (current) use of aspirin; Z79.899 Other long term (current) drug therapy; Z99.81 Dependence on supplemental oxygen

== ENCOUNTER → 2019-01-17 | Outpatient (CLI) | payer MEDICARE, MEDICAID ==
[~2019-01-17] MED LIST changes: +NOVOINJ13 SC; +TORS20TA2 PO
--- NOTE | 2019-01-17 18:27 | REP ---
HISTORY: COPD with exacerbation. COMPARISON: 11/03/2018, a portable exam. There is cardiomegaly. The interstitial markings are diffusely increased. No patchy parenchymal opacities have developed. There are chronic changes seen involving the imaged osseous structures. IMPRESSION: Cardiomegaly and suspected fibrotic changes, however, I cannot completely rule out the possibility of acute disease superimposed upon chronic change. Clinical correlation is recommended. Electronically Signed by Chito Bateman DO 01/18/2019 10:52 A
== END ==
LOC: M SMT 15:21
PROVIDERS: ATTEND Nurse Practitioner Family
DX: J44.9 Chronic obstructive pulmonary disease, unspecified (principal); I50.32 Chronic diastolic (congestive) heart failure; I51.7 Cardiomegaly

== ENCOUNTER → 2019-01-18 | Outpatient (CLI) | payer MEDICARE, MEDICAID ==
[~2019-01-18] MED LIST changes: -AZIT500T2 PO; +AZIT500T5 PO; -MAGN400T PO; +MAGN400T3 PO
--- NOTE | 2019-01-18 13:40 | REP ---
MRI LEFT ELBOW WITHOUT CONTRAST: HISTORY: Contusion of the left elbow. Rule out fracture. Injury in a fall in the previous month. No comparison imaging. TECHNIQUE: Axial, coronal, and sagittal imaging planes are utilized for T1- and T2-weighted scans obtained with and without fat saturation. MRI FINDINGS: There is subcutaneous edema along the dorsal aspect of the proximal ulna consistent with soft tissue contusion. Cortical and medullary bone signal intensity are normal about the elbow. No occult fracture is appreciated. There is no evidence of abnormal joint effusion. The triceps, brachialis, and biceps tendons appear intact. Skeletal muscle signal intensity is normal as visualized. No abnormal fluid collection is seen. IMPRESSION: No occult fracture is evident. Soft tissue contusion pattern about the olecranon. Electronically Signed by Yaya Ludwig MD 01/18/2019 04:49 P
== END ==
LOC: M RAD 10:53
PROVIDERS: ATTEND Physician Assistant
DX: S50.02XA Contusion of left elbow, initial encounter (principal); X58.XXXA Exposure to other specified factors, initial encounter; Y92.89 Other specified places as the place of occurrence of the external cause

== ENCOUNTER → 2019-02-09 | Outpatient (CLI) | payer MEDICARE, MEDICAID ==
[~2019-02-09] MED LIST changes: +AZIT500T2 PO; -AZIT500T5 PO; +MAGN400T PO; -MAGN400T3 PO
[2019-02-09 14:36] LABS: CALCIUM LEVEL 9.5 MG/DL (8.8-10.2); CREATININE FOR GFR 1.65 MG/DL (0.55-1.30); GLOMERULAR FILTRATION RATE 32.5 (>39); POTASSIUM SERUM 3.9 MEQ/L (3.5-5.1)
== END ==
LOC: M LAB 13:44
PROVIDERS: ATTEND Physician Assistant
DX: I50.32 Chronic diastolic (congestive) heart failure (principal)

== ENCOUNTER → 2019-02-16 | Outpatient (CLI) | payer MEDICARE, MEDICAID ==
[~2019-02-16] MED LIST changes: -AZIT500T2 PO; +AZIT500T5 PO; +CONRAY-43 43% 50ML VIAL (Q9960) As Ordered ONE; +LIDOCAINE 1% MDV 20ML VIAL As Ordered ONE; -MAGN400T PO; +MAGN400T3 PO; +methylPREDNISolone SUSP 40 MG/ML (DEPO-medrol) VIAL (J1030) As Ordered ONE
--- NOTE | 2019-02-16 17:29 | REP ---
RIGHT SHOULDER INJECTION The procedure was performed under the direct supervision of Dr. Louise. The benefits and risks including but not limited to pain infection bleeding and anaphylaxis were explained to the patient and informed consent was obtained. The right glenohumeral joint space was localized using fluoroscopic guidance. The skin was prepped and draped in a sterile fashion. 1% lidocaine was used as a local anesthetic. Using fluoroscopic guidance a 22-gauge needle was inserted and advanced into the joint. 0.5 ml of Conray 43 was injected to verify placement. 7 ml of a solution containing 5 ml of 1% lidocaine and 2 ml of Depo-Medrol 40 mg injected. The needle was then removed. The patient tolerated the procedure well and there were no immediate complications. Less than 6 seconds of fluoroscopy time was utilized for this procedure. Electronically Signed by ROBLES Adams 02/16/2019 01:37 P Electronically Signed by Dominic Louise MD 02/16/2019 05:21 P
== END ==
LOC: M RADPRO 11:25
PROVIDERS: ATTEND Physician Assistant
DX: M19.011 Primary osteoarthritis, right shoulder (principal)
CPT/HCPCS: 20610; 77002; 99152; 99153; J1030; Q9960

== ENCOUNTER → 2019-03-15 | Outpatient (CLI) | payer MEDICARE, MEDICAID ==
[~2019-03-15] MED LIST changes: -CONRAY-43 43% 50ML VIAL (Q9960) As Ordered ONE; -LIDOCAINE 1% MDV 20ML VIAL As Ordered ONE; -methylPREDNISolone SUSP 40 MG/ML (DEPO-medrol) VIAL (J1030) As Ordered ONE
--- NOTE | 2019-03-29 03:41 | ECWPNPC ---
PATIENT NAME: ROSALVA MOSES : 1945 GENDER: FEMALE VISIT DATE: 03/15/2019 DISCHARGE DATE: 03/15/19 145 VISIT LOCKED DATE TIME: PHYSICIAN: NOE VALLEJO RESOURCE: NOE VALLEJO DISCLAIMER : THIS IS A VISIT SUMMARY [facility]. IT IS NOT A COPY OF THE [employer] PROGRESS NOTE. MTDD
== END ==
LOC: M PAIN 13:15
PROVIDERS: ATTEND Nurse Practitioner Family
DX: M96.1 Postlaminectomy syndrome, not elsewhere classified (principal); M54.5 Low back pain; I50.9 Heart failure, unspecified; E11.9 Type 2 diabetes mellitus without complications; I12.9 Hypertensive chronic kidney disease with stage 1 through stage 4 chronic kidney disease, or unspecified chronic kidney disease; N18.9 Chronic kidney disease, unspecified; F17.210 Nicotine dependence, cigarettes, uncomplicated; Z79.4 Long term (current) use of insulin; Z79.891 Long term (current) use of opiate analgesic; Z79.899 Other long term (current) drug therapy

== ENCOUNTER → 2019-03-16 | Outpatient (CLI) | payer MEDICARE, MEDICAID ==
--- NOTE | 2019-03-16 14:39 | REP ---
DIGITAL DIAGNOSTIC UNILATERAL LEFT BREAST MAMMOGRAPHY WITH CAD, AND 3D TOMOGRAPHY. HISTORY: Unilateral left breast enlargement times 1 week. Comparison is made with April 14, 2018, February 22, 2017, and February 13, 2016 prior left breast mammography. MAMMOGRAPHIC FINDINGS: Left breast parenchyma remains heterogeneously dense in a pattern which may inhibit the sensitivity of mammography. This is unchanged however. No neodensity is seen. No spiculation or architectural distortion is seen. No worrisome skin change or microcalcification is observed. 3D tone was synthesis shows no additional abnormality. IMPRESSION: BIRADS 1: BI-RADS/ACR category 1 mammogram. Negative Mammogram. BIRADS category 1 negative mammographic findings. Recommend screening mammography of the right breast in March 2019 and bilateral screening mammography in 1 year. This mammogram was interpreted with the aid of an FDA-approved computer-aided detection system. A the patient states she had a clinical breast exam in March 18, 2019 The patient letter being requested is M2 . This patient's estimated Tyrer-Cuzick lifetime risk assessment for the breast cancer is 2.9 %. Electronically Signed by Yaya Ludwig MD 03/16/2019 07:42 P
== END ==
LOC: M RAD 12:50
PROVIDERS: ATTEND Nurse Practitioner Family
DX: N62 Hypertrophy of breast (principal)
CPT/HCPCS: 77065; G0279

== ENCOUNTER → 2019-05-01 | Outpatient (REF) | payer MEDICARE, MEDICAID | LOC: M LAB REF 18:55 | PROVIDERS: ATTEND Dermatology | DX: D04.39 Carcinoma in situ of skin of other parts of face (principal) | CPT/HCPCS: 11102; 17000; 17003; 17110; 88305; G0463 ==

== ENCOUNTER → 2019-06-13 | Outpatient (REF) | payer MEDICARE, MEDICAID | LOC: M LAB REF 10:22 | PROVIDERS: ATTEND Dermatology | DX: D04.39 Carcinoma in situ of skin of other parts of face (principal); L57.0 Actinic keratosis ==

== ENCOUNTER → 2019-06-19 | Outpatient (REF) | payer MEDICARE, MEDICAID | LOC: M LAB REF 09:20 | PROVIDERS: ATTEND Dermatology | DX: C44.320 Squamous cell carcinoma of skin of unspecified parts of face (principal) ==

== ENCOUNTER → 2019-07-18 | Outpatient (REF) | payer MEDICARE, MEDICAID ==
[~2019-07-18] MED LIST changes: +HUMU1INJ2; +METO25TA
== END ==
LOC: M LAB REF 09:27
PROVIDERS: ATTEND Dermatology
DX: D04.30 Carcinoma in situ of skin of unspecified part of face (principal); L57.0 Actinic keratosis

== ENCOUNTER → 2019-08-01 | Outpatient (CLI) | payer MEDICARE, MEDICAID ==
[~2019-08-01] MED LIST changes: -HUMU1INJ2; -METO25TA
--- NOTE | 2019-08-01 18:45 | REP ---
Left ankle: Four views. History: Knee and ankle pain. Findings: Four views of the left ankle demonstrate diffuse osteopenia. There is a large Achilles calcaneal spur. There is diffuse subcutaneous swelling in the distal calf. There is subtle irregularity of the distal fibular tip. It is difficult to exclude a tiny distal fibular tip chip fracture. This should be correlated with area of tenderness to palpation. No other evidence of fracture or subluxation is seen. Ankle mortise is intact. Impression: Cannot exclude tiny chip fracture lateral malleolus. Diffuse osteopenia. Diffuse soft tissue subcutaneous swelling. Electronically Signed by Yaya Ludwig MD 08/01/2019 07:37 P
--- NOTE | 2019-08-01 18:46 | REP ---
Left knee series: Five views. History: Knee and ankle pain. Findings: Five views of the left knee are compared with radiographs from December 14, 2018. Findings: There is patellofemoral osteoarthritic spurring. Some vascular calcification and diffuse osteopenia is noted. There is no evidence of joint effusion. No fracture is seen. No bony destructive lesion seen. Impression: Diffuse osteoporosis. Patellofemoral spurring. No acute bony abnormality. Electronically Signed by Yaya Ludwig MD 08/01/2019 07:37 P
== END ==
LOC: M WUC 17:51
PROVIDERS: ATTEND Physician Assistant
DX: M25.562 Pain in left knee (principal); M25.572 Pain in left ankle and joints of left foot

== ENCOUNTER 2019-08-06 14:49 | Emergency (ER) | payer MEDICARE, MEDICAID ==
[~2019-08-06] VITALS: Ht 160 cm; Wt 71.3 kg
[2019-08-06] MEDS ORDERED: METO25TA (17:11)
[2019-08-06] MEDS ORDERED: HUMU1INJ2 (17:11)
--- NOTE | 2019-08-06 17:13 | REP ---
Left ribs for views: There is o rib fracture or other rib abnormalities. PA chest: Comparison is the PA and lateral chest of 01/17/2019. There is no pneumothorax, hemothorax or pulmonary contusion. No pleural thickening. There is chronic diffuse interstitial coarsening compatible with chronic lung disease, unchanged. No focal infiltrate. There is chronic cardiomegaly, unchanged. Impression: Chronic interstitial coarsening. Chronic cardiomegaly. Pedicle screws and stabilization rods are identified in the visualized lumbar spine. Electronically Signed by Dominic Mckenna MD 08/06/2019 05:04 P
--- NOTE | 2019-08-06 17:18 | REP ---
Right knee four views: There is no fracture or dislocation. There is no hemarthrosis. There is diffuse demineralization. There is questionable chondrocalcinosis suggestive of CPPD. There is calcified vascular atheroma. Impression: No fracture or dislocation. No hemarthrosis. Questionable chondrocalcinosis and CPPD. Electronically Signed by Dominic Mckenna MD 08/06/2019 05:08 P
[2019-08-06 18:25] LABS: BASO # 0.1 10^3/uL (0.0-0.2); BASO % 0.3 % (0.0-1.0); HEMATOCRIT 43.6 % (36.0-47.0); HEMOGLOBIN 13.9 g/dl (12.0-15.5); LYMPH # 1.3 10^3/uL (1.5-5.0); LYMPH % 7.4 % (24.0-44.0); MEAN CORPUSCULAR HEMOGLOBIN 25.4 pg (27.0-33.0); MEAN CORPUSCULAR HGB CONC 31.9 g/dl (32.0-36.5); MEAN CORPUSCULAR VOLUME 79.7 fl (80.0-96.0); MONO # 0.5 10^3/uL (0.0-0.8); NEUTROPHILS # 15.4 10^3/uL (1.5-8.5); NEUTROPHILS % 88.9 % (36.0-66.0); PLATELET COUNT, AUTOMATED 208 10^3/uL (150-450); RED BLOOD COUNT 5.47 10^6/uL (4.00-5.40); WHITE BLOOD COUNT 17.3 10^3/uL (4.0-10.0)
[2019-08-06] MEDS ORDERED: ISOVUE-370 76% 100ML VIAL (Q9967) As Ordered ONE (18:33)
[2019-08-06 18:51] LABS: ALBUMIN 3.6 GM/DL (3.2-5.2); ALT/SGPT 22 U/L (12-78); AMYLASE 132 U/L (25-115); BILIRUBIN,DIRECT < 0.1 MG/DL (0.0-0.2); BILIRUBIN,TOTAL 0.4 MG/DL (0.2-1.0); TOTAL PROTEIN 7.2 GM/DL (6.4-8.2)
--- NOTE | 2019-08-06 19:48 | REPVR ---
PROCEDURE INFORMATION: Exam: CT Abdomen And Pelvis With Contrast Exam date and time: 08/06/2019 6:36 PM Age: 73 years old Clinical indication: Abdominal pain; Localized; Left upper quadrant (luq); Additional info: Luq x 1 mo TECHNIQUE: Imaging protocol: Computed tomography of the abdomen and pelvis with intravenous contrast. Radiation optimization: All CT scans at this facility use at least one of these dose optimization techniques: automated exposure control; mA and/or kV adjustment per patient size (includes targeted exams where dose is matched to clinical indication); or iterative reconstruction. Contrast material: ISOVUE 370; Contrast volume: 100 ml; Contrast route: IV; COMPARISON: CT ABD PELVIS WITH CONTRAST 12/25/2012 1:58 AM FINDINGS: Lungs: There is subpleural reticulation in both lung bases, which is similar in appearance compared to the prior CT on 12/25/2012. Heart: The heart is enlarged, which is similar in size compared to the prior CT on 12/25/2012. No pericardial effusion is noted. Liver: Unremarkable. No liver lesion is identified. The contour of the liver is smooth. No hepatomegaly is noted. Gallbladder and bile ducts: There has been a cholecystectomy. There is no fluid collection in the gallbladder fossa. There is mild intrahepatic biliary ductal dilation and dilation of the common bile duct, which measures 11 mm in diameter at the level of the charanjit hepatis, which are similar findings compared to the prior CT on 12/25/2012. No calcified stones are seen in the common bile duct. Pancreas: Normal. No dilation of the main pancreatic duct is noted. There is no inflammatory fat stranding around the pancreas to suggest acute pancreatitis. Spleen: Normal. No splenomegaly is noted. Adrenals: Normal. No adrenal mass is noted. Kidneys and ureters: No calculi are seen in the kidneys or ureters. There is no hydronephrosis or hydroureter. There are no wedge-shaped areas of low attenuation in the kidneys to suggest pyelonephritis. There is no renal abscess or perinephric fluid collection. There is a 9 mm benign-appearing cyst in the midpole of the right kidney for which follow-up is not necessary. Stomach and bowel: There is colonic diverticulosis without evidence for diverticulitis. There is no evidence for a bowel obstruction, colitis, pneumatosis intestinalis, intussusception, volvulus, or perforated viscus. There is thickening of the wall of the stomach, which may be secondary to its decompressed state versus gastritis. Appendix: The appendix is not identified and may have been removed. No dilated blind ending tubular structure, inflammatory fat stranding, or fluid is noted in the expected location of the appendix. Intraperitoneal space: No free air. No fluid collection. Retroperitoneal space: No fluid collection. No mass. Vasculature: The abdominal aorta is patent, normal in caliber, and there is no dissection. The iliac arteries, common femoral arteries, renal arteries, celiac artery, superior mesenteric artery, and inferior mesenteric artery are patent. There are extensive atherosclerotic calcifications. The portal veins, splenic vein, superior mesenteric vein, inferior mesenteric vein, and renal veins are patent. Lymph nodes: No enlarged lymph nodes. Bladder: The distended urinary bladder is normal in appearance. No stones or masses are seen in the bladder. Reproductive: There has been a hysterectomy. No adnexal mass is noted. Bones/joints: No fracture or dislocation is noted. There is no suspicious osteolytic or osteoblastic lesion. Postoperative changes are noted from a posterior lumbar interbody fusion, bilateral laminectomy, and bilateral facetectomy at the L2-L3 and L3-L4 levels, with bilateral vertical posterior rods and transpedicular screws, which are intact and appropriately positioned without evidence for loosening. A solid interbody fusion has been achieved at the L2-L3 and L3-L4 levels. There is also a solid lumbar interbody fusion at the L4-L5 level with bilateral laminectomy defects at this level. There is a slight levoscoliosis of the lumbar spine. There is severe loss of disc height, vacuum phenomenon intervertebral disc, a broad-based posterior protrusion, increased epidural fat posteriorly, and mild stenosis of the thecal sac at the L1-L2 level. At the L5-S1 level, there is moderate osteoarthritis of the right facet joint and mild osteoarthritis of the left facet joint. Soft tissues: There is a small fat containing umbilical hernia, which is similar in appearance compared to the prior CT on 12/25/2012. There is a midline vertical incision scar and a left paramedian vertical incision scar in the anterior abdominal wall. There is scarring of the soft tissues dorsally along the midline of the lumbar spine. There is severe fatty atrophy of the paraspinal muscles in the lumbosacral region. IMPRESSION: 1. Thickening of the wall of the stomach, which may be secondary to its decompressed state versus gastritis. 2. Colonic diverticulosis without evidence for diverticulitis. 3. Small fat containing umbilical hernia, which is similar in appearance compared to the prior CT on 12/25/2012. 4. Cardiomegaly, which is similar in size compared to the prior CT on 12/25/2012. Electronically signed by: Lorenzo Fairbanks On 08/06/2019 19:48:08 PM
[2019-08-06 20:10] VITALS: BP 137/64
== END 2019-08-06 20:13 | disposition home or self-care (01) ==
LOC: M ED 14:49
DX: R10.12 Left upper quadrant pain (principal); R07.9 Chest pain, unspecified; S89.91XA Unspecified injury of right lower leg, initial encounter; W07.XXXA Fall from chair, initial encounter; Y92.019 Unspecified place in single-family (private) house as the place of occurrence of the external cause; I51.7 Cardiomegaly; J98.4 Other disorders of lung; K57.30 Diverticulosis of large intestine without perforation or abscess without bleeding; K43.9 Ventral hernia without obstruction or gangrene; E11.9 Type 2 diabetes mellitus without complications; J44.9 Chronic obstructive pulmonary disease, unspecified; F17.210 Nicotine dependence, cigarettes, uncomplicated; Z98.1 Arthrodesis status; Z91.048 Other nonmedicinal substance allergy status; Z79.51 Long term (current) use of inhaled steroids; Z79.899 Other long term (current) drug therapy
CPT/HCPCS: 36415; 71101; 73564; 74177; 80047; 80076; 82150; 85025; 99284; Q9967

== ENCOUNTER 2020-02-10 17:34 | Inpatient (IN) | payer MEDICARE, MEDICAID ==
[~2020-02-10] VITALS: Ht 157.5 cm; Wt 68.6 kg
[~2020-02-10 17:34] MED LIST changes: -AMLO10TA5 PO; +AMLO1TAB25 PO; +HUMU1INJ2 SQ; +METO25TA PO
[2020-02-10] MEDS ORDERED: COMBIVENT RESPIMAT 100-20MCG INHALER 4GM INH STA (17:45)
[2020-02-10] MEDS ORDERED: methylPREDNISolone 125MG 2ML VIAL IV ONE (17:45)
[2020-02-10 18:16] LABS: VENOUS BASE EXCESS 3.7 (-2.0-2.0); VENOUS HCO3 30.9 MEQ/L (23.0-27.0); VENOUS O2 SATURATION 67.5 % (60.0-80.0); VENOUS PARTIAL PRESSURE CO2 57.3 mmHg (38.0-50.0); VENOUS PARTIAL PRESSURE O2 36.5 mmHg (30.0-50.0); VENOUS TOTAL CO2 32.7 MEQ/L (24.0-28.0)
[2020-02-10 18:24] LABS: BASO # 0.1 10^3/uL (0.0-0.2); BASO % 0.3 % (0.0-1.0); EOS % 0.2 % (0.0-3.0); HEMATOCRIT 47.2 % (36.0-47.0); HEMOGLOBIN 14.6 g/dl (12.0-15.5); LYMPH # 1.2 10^3/uL (1.5-5.0); LYMPH % 5.3 % (24.0-44.0); MEAN CORPUSCULAR HEMOGLOBIN 26.2 pg (27.0-33.0); MEAN CORPUSCULAR HGB CONC 30.9 g/dl (32.0-36.5); MEAN CORPUSCULAR VOLUME 84.6 fl (80.0-96.0); MONO # 1.2 10^3/uL (0.0-0.8); MONO % 5.3 % (0.0-5.0); NEUTROPHILS # 19.5 10^3/uL (1.5-8.5); NEUTROPHILS % 88.4 % (36.0-66.0); PLATELET COUNT, AUTOMATED 196 10^3/uL (150-450); RED BLOOD COUNT 5.58 10^6/uL (4.00-5.40); WHITE BLOOD COUNT 22.1 10^3/uL (4.0-10.0)
--- NOTE | 2020-02-10 18:30 | REPVR ---
PROCEDURE INFORMATION: Exam: XR Chest, 1 View Exam date and time: 02/10/2020 5:55 PM Age: 74 years old Clinical indication: Shortness of breath; Additional info: Dyspnea/cough TECHNIQUE: Imaging protocol: XR of the chest Views: 1 view. COMPARISON: 1. CR Ribs uni W-PA CHEST ONLY 08/06/2019 4:[address] Chest without contrast 12/14/2018. FINDINGS: Lungs: Diffuse mild nonspecific prominence of the pulmonary interstitium is similar to prior chest x-rays. Interstitial prominence and pulmonary vascular prominence are suggestive of early congestive heart failure and interstitial pulmonary edema. No focal pulmonary infiltrate. Pleural space: No pleural effusion. Heart/Mediastinum: Stable mild cardiomegaly. Bones/joints: No acute asseous abnormalities are identified. Soft tissues: Unremarkable. IMPRESSION: 1. Stable mild cardiomegaly. 2. Diffuse mild nonspecific prominence of the pulmonary interstitium is similar to prior chest x-rays. 3. Interstitial prominence and pulmonary vascular prominence are suggestive of early congestive heart failure and interstitial pulmonary edema. 4. No focal pulmonary infiltrate. Electronically signed by: Quang Abbott On 02/10/2020 18:30:16 PM
[2020-02-10 18:37] LABS: INR 0.92; PROTHROMBIN TIME 12.5 SECONDS (11.8-14.0)
[2020-02-10] MEDS ORDERED: FUROSEMIDE 100MG/10ML VIAL (J1940) IV ONE (18:45)
[2020-02-10 18:51] LABS: ALBUMIN 3.3 GM/DL (3.2-5.2); BILIRUBIN,DIRECT 0.1 MG/DL (0.0-0.2); BILIRUBIN,TOTAL 0.4 MG/DL (0.2-1.0); CALCIUM LEVEL 9.3 MG/DL (8.8-10.2); CK-MB VALUE MASS 3.7 NG/ML (<3.6); CREATININE FOR GFR 1.41 MG/DL (0.55-1.30); GLOMERULAR FILTRATION RATE 38.8 (>39); MB/CK RELATIVE INDEX 5.69 (< OR =4); POTASSIUM SERUM 4.4 MEQ/L (3.5-5.1); THYROID STIMULATING HORMONE 1.56 uIU/ML (0.358-3.740); TOTAL PROTEIN 7.3 GM/DL (6.4-8.2); TROPONIN I 0.02 NG/ML (< 0.10)
[2020-02-10] MEDS ORDERED: ISOVUE-370 76% 100ML VIAL As Ordered ONE (19:31)
[2020-02-10] MEDS: SYMBICORT 80/4.5MCG INHALER 6GM INH SCH (20:00)
[2020-02-10 20:54] VITALS: O2SAT 76
--- NOTE | 2020-02-10 20:54 | REPVR ---
PROCEDURE INFORMATION: Exam: CT Angiography Chest With Contrast Exam date and time: 02/10/2020 7:40 PM Age: 74 years old Clinical indication: Shortness of breath; Additional info: Hypoxia above baseline TECHNIQUE: Imaging protocol: Computed tomographic angiography of the chest with intravenous contrast. 3D rendering (Not supervised by radiologist): MIP and/or 3D reconstructed images were created by the technologist. Radiation optimization: All CT scans at this facility use at least one of these dose optimization techniques: automated exposure control; mA and/or kV adjustment per patient size (includes targeted exams where dose is matched to clinical indication); or iterative reconstruction. Contrast material: ISOVUE 370; Contrast volume: 75 ml; Contrast route: INTRAVENOUS (IV); COMPARISON: 1. CT ANGIO CHEST 10/24/2018 5:[address] ANGIO CHEST 05/07/2015 11:07:[address] ANGIO CHEST 11/09/2013 4:41:29 PM FINDINGS: Pulmonary arteries: No pulmonary embolism. The pulmonary artery trunk is dilated and measures 3.9 cm in diameter, which is stable compared to the prior CTA chest on 10/24/2018 and can be seen with pulmonary artery hypertension. Aorta: The thoracic aorta is intact and patent. There is no thoracic aortic aneurysm, pseudoaneurysm, penetrating atherosclerotic ulcer, intramural hematoma, or dissection. There are extensive atherosclerotic calcifications. Great vessels off aortic arch: The brachiocephalic artery, imaged proximal portions of the common carotid arteries, imaged proximal portions of the vertebral arteries, and subclavian arteries are intact. No stenosis or occlusion of these vessels is noted. Thyroid: Unremarkable. Tracheobronchial tree: Intact and patent. Lungs: There is a 4.5 cm left superior mediastinal/left apical soft tissue density lesion that is unchanged compared to the prior CTAs on 10/24/2018, 05/07/2015 and 11/09/2013. No new region of lung consolidation is noted compared to the prior CTA chest on 10/24/2018. There are chronic subpleural reticular opacities in both lungs without significant change compared to the prior CTA chest on 10/24/2018. No honeycombing is noted. There is no cavitary lesion. Pleural space: Normal. No pneumothorax or pleural effusion. Heart: The heart is enlarged. The ratio of the diameter of the right ventricle to the diameter of the left ventricle measures less than 1, which is within normal limits and there is no evidence for a right ventricular strain. There are coronary artery calcifications. No pericardial effusion is noted. There is lipomatous hypertrophy of the interatrial septum. Mediastinal space: No mediastinal fluid collection or pneumomediastinum is noted. Lymph nodes: There is pretracheal, subcarinal, and bilateral hilar lymphadenopathy, which is stable compared to the prior CTA chest on 10/24/2018. For example, there is a 15 mm pretracheal lymph node, a 20 mm subcarinal lymph node, an 11 mm right hilar lymph node, and a 10 mm left hilar lymph node, which are unchanged compared to the prior CTA chest on 10/24/2018. Gallbladder and bile ducts: There are surgical clips in the gallbladder fossa secondary to a cholecystectomy. The common bile duct is dilated and measures 15 mm in diameter at the level of the charanjit hepatis, which is unchanged compared to the prior CTA chest on 11/09/2013. The bile ducts were not fully imaged. Adrenals: Normal. No adrenal mass is noted. Bones/joints: There is no fracture or dislocation. No suspicious osteolytic or osteoblastic lesion. There are endplate spurs in the thoracic spine. Soft tissues: Unremarkable. No soft tissue fluid collection. IMPRESSION: 1. No acute findings in the chest. No pulmonary embolism. 2. 4.5 cm left superior mediastinal/left apical soft tissue density lesion that is unchanged compared to the prior CTAs on 10/24/2018, 05/07/2015 and 11/09/2013. 3. Pretracheal, subcarinal, and bilateral hilar lymphadenopathy, which is stable compared to the prior CTA chest on 10/24/2018. 4. Chronic subpleural reticular opacities in both lungs without significant change compared to the prior CTA chest on 10/24/2018. 5. Cardiomegaly, which is similar in appearance compared to the prior CTA chest on 10/24/2018. 6. Dilation of the pulmonary artery trunk, which may indicate pulmonary artery hypertension. Electronically signed by: Lorenzo Fairbanks On 02/10/2020 20:53:29 PM
[2020-02-10] MEDS: HumuLIN N INSULIN (NovoLIN N) PER UNIT SC SCH (21:00)
[2020-02-10] MEDS ORDERED: INSUNSD SC ×2 (21:38→21:45)
[2020-02-10] MEDS ORDERED: XALA0.007 OU (21:45)
[2020-02-10] MEDS ORDERED: TORS20TA2 PO (21:45)
[2020-02-10] MEDS ORDERED: NYSTATIN 100,000 UNITS/GM TOPICAL PWD 15 GM TOP PRN (22:00)
--- NOTE | 2020-02-10 22:16 | HPEPDOC ---
General Date of Admission Feb 10, 2020 at 21:44 Date of Service: Feb 10, 2020 Chief Complaint The patient is a 74-year-old female admitted with a reason for visit of Chf,Copd Exacerbation. Source: Patient Exam Limitations: No limitations Timing/Duration: 24 hours Severity: Moderate Associated Symptoms: Shortness of breath History of Present Illness Patient 73 years old female with past medical history of COPD on 2 L home O2, active smoker, HFpEF, CAD, HTN, DM, RLS, gout presented to the ER with complaints of worsening SOB. Patient stated that today she has been having increased shortness of breath associated with increased cough and yellowish to brownish sputum production. Patient denies any fever or chills. In ER patient was found to have leukocytosis of 22.1, hemoglobin 14.6, creatinine 1.4. CTA was done and showed Cardiomegaly, which is similar in appearance compared to the prior CTA chest on 10/24/2018, 4.5 cm left superior mediastinal/left apical soft tissue density lesion that is unchanged compared to the prior CTAs on 10/24/2018, 05/07/2015 and 11/09/2013. Pretracheal, subcarinal, and bilateral hilar lymphadenopathy, which is stable compared to the prior CTA chest on 10/24/2018 Home Medications Scheduled Acetaminophen (Acetaminophen) 500 Mg Tablet, 1,000 MG PO QHS, (Reported) Allopurinol (Zyloprim) 300 Mg Tab, 300 MG PO DAILY, (Reported) Amlodipine Besylate (Amlodipine Besylate) 10 Mg Tablet, 10 MG PO DAILY, (Reported) Calcitriol (Calcitriol) 0.25 Mcg Cap, 0.25 MCG PO 5XW, (Reported) MON-TUE Duloxetine Hcl (Duloxetine HCl) 60 Mg Cap, 60 MG PO BID, (Reported) Esomeprazole Magnesium (Nexium) 40 Mg Capsule.dr, 40 MG PO DAILY, (Reported) Insulin Human NPH (Humulin N) 100 Unit/1 Ml Vial, 10 UNITS SC QHS, (Reported) PATIENT HOLDS IN BS IS LESS THAN 300 Insulin NPH Human Isophane (Humulin N Kwikpen) 100 Unit/1 Ml Insuln.pen, 75 UNITS SQ QAM, (Reported) Latanoprost (Xalatan) 0.005% 2.5ML Drops, 1 DROP OU QHS, (Reported) Latanoprost (Xalatan) 0.005% 2.5ML Drops, 1 DROP OU QHS, (Reported) Melatonin (Melatonin) 5 Mg Tablet, 5 MG PO QHS, (Reported) Metolazone (Metolazone) 2.5 Mg Tablet, 2.5 MG PO BID, (Reported) Prednisone (Prednisone) 10 Mg Tab, 10 MG PO DAILY, (Reported) Pregabalin (Lyrica) 200 Mg Cap, 200 MG PO BID, (Reported) Ropinirole HCl (Requip) 0.25 Mg Tablet, 0.5 MG PO QHS, (Reported) Rosuvastatin Calcium (Crestor) 20 Mg Tab, 20 MG PO DAILY, (Reported) Spironolactone (Spironolactone) 25 Mg Tab, 25 MG PO BID, (Reported) Torsemide (Torsemide) 20 Mg Tablet, 40 MG PO BID, (Reported) Umeclidinium [place] (Incruse Ellipta) 62.5 Mcg Blst.w.dev, 1 PUFF INH DAILY, (Reported) Scheduled PRN Albuterol Sulf (Albuterol Sulfate) 2.5 Mg/3 Ml Vial.neb, 2.5 MG INH Q4H PRN for SHORTNESS OF BREATH, (Reported) Albuterol Sulfate (Ventolin Hfa) 108 Mcg/Act Aer, 2 PUFFS INH Q4H PRN for SHORTNESS OF BREATH, (Reported) Hydrocodone/Acetaminophen (Hydrocodone-Acetamin 10-325 mg) 1 Tab Tab, 1 TAB PO Q6H PRN for PAIN, (Reported) Nitroglycerin (Nitrostat) 0.4 Mg Subl, 0.4 MG SL NITRO PRN for CHEST PAIN, (Reported) Nystatin (Nyamyc) 15 Gm Powder, 1 DOSE TOP BID PRN for REDNESS/IRRITATION, (Reported) APPLY TO UNDER BREASTS AND GROIN Allergies Coded Allergies: TAPE (Verified Allergy, Unknown, 12/13/18) Past Medical History Medical History COPD on 2 L home O2, HFpEF, CAD, HTN, DM, RLS, gout Surgical History Right distal clavicle surgery, L4, L3 decompression, left knee joint. Debridement, 4 laminectomies , cholecystectomy, hysterectomy with BSO Family History I personally reviewed family history and found not pertinent Social History * Smoker: current smoker Alcohol: Denies Drugs: denies A-FIB/CHADSVASC A-FIB History Current/History of A-Fib/PAF?: No Current PO Anticoag Therapy: No Review of Systems Constitutional: Reports: Fatigue; Denies: Chills, Fever Eyes: Denies: Pain ENT: Denies: Head Aches Skin: Denies: Rash, Lesions Pulmonary: Reports: Dyspnea, Cough Cardiovascular: Denies: Chest Pain, Palpitations Gastrointestinal: Denies: Nausea, Vomiting Genitourinary: Denies: Dysuria Hematologic: Denies: Bruising Endocrine: Denies: Polydipsia, Polyphagia Musculoskeletal: Denies: Neck Pain Neurological: Denies: Weakness Psych: Reports: Mood Normal Physical Examination General Exam: Positive: Alert, Cooperative Eye Exam: Positive: PERRLA ENT Exam: Positive: Atraumatic Neck Exam: Positive: Supple, JVD Chest Exam: Positive: Rhonchi, Wheezing Heart Exam: Positive: Rate Normal Telemetry: Positive: No significant arrhythmia Abdomen Exam: Positive: Normal bowel sounds Extremity Exam: Positive: Clubbing; Negative: Cyanosis Skin Exam: Positive: Nl turgor and temperature Neuro Exam: Positive: Strength at 5/5 X4 ext, Cranial Nerves 3-12 NL Psych Exam: Positive: Mental status NL Vital Signs Vital Signs Date Time Temp Pulse Resp B/P (MAP) Pulse Ox O2 Delivery O2 Flow Rate FiO2 02/10/20 20:54 76 Room Air 02/10/20 18:28 2.0 93 02/10/20 18:06 76 16 02/10/20 17:56 99.0 179/81 (113) Laboratory Data Labs 24H Laboratory Tests 2 02/10/20 17:41: Immature Granulocyte % (Auto) 0.5, Neutrophils (%) (Auto) 88.4H, Lymphocytes (%) (Auto) 5.3L, Monocytes (%) (Auto) 5.3H, Eosinophils (%) (Auto) 0.2, Basophils (%) (Auto) 0.3, Neutrophils # (Auto) 19.5H, Lymphocytes # (Auto) 1.2L, Monocytes # (Auto) 1.2H, Eosinophils # (Auto) 0.0, Basophils # (Auto) 0.1, Nucleated Red Blood Cells % (auto) 0.0, Prothrombin Time 12.5, Prothromb Time International Ratio 0.92, Anion Gap 6L, Glomerular Filtration Rate 38.8L, Lactic Acid Level 1.1, Calcium Level 9.3, Total Bilirubin 0.4, Direct Bilirubin 0.1, Aspartate Amino Transf (AST/SGOT) 22, Alanine Aminotransferase (ALT/SGPT) 28, Alkaline Phosphatase 88, Total Creatine Kinase 65, Creatine Kinase MB 3.7H, Creatine Ki nase MB Relative Index 5.69H, Troponin I 0.02, LV-Szd-M-Type Natriuretic Peptide 2792H, Total Protein 7.3, Albumin 3.3, Albumin/Globulin Ratio 0.8L, Thyroid Stimulating Hormone (TSH) 1.560 02/10/20 17:53: Blood Gas Bicarbonate Standard 27.0, Venous Blood pH 7.350, Venous Blood Partial Pressure CO2 57.3H, Venous Blood Partial Pressure O2 36.5, Venous Blood Total Carbon Dioxide 32.7H, Venous Blood HCO3 30.9H, Venous Blood Oxygen Saturation 67.5, Venous Blood Base Excess 3.7H CBC/BMP Laboratory Tests 02/10/20 17:41 Microbiology Microbiology 02/10/20 Blood Culture, Received Pending 02/10/20 Blood Culture, Received Pending Assessment/Plan Patient 73 years old female with past medical history of COPD on 2 L home O2, active smoker, HFpEF, CAD, HTN, DM, RLS, gout presented to the ER with c omplaints of worsening SOB. Patient stated that today she has been having increased shortness of breath associated with increased cough and yellowish to brownish sputum production. Patient denies any fever or chills. In ER patient was found to have leukocytosis of 22.1, hemoglobin 14.6, creatinine 1.4. CTA was done and showed Cardiomegaly, which is similar in appearance compared to the prior CTA chest on 10/24/2018, 4.5 cm left superior mediastinal/left apical soft tissue density lesion that is unchanged compared to the prior CTAs on 10/24/2018, 05/07/2015 and 11/09/2013. Pretracheal, subcarinal, and bilateral hilar lymphadenopathy, which is stable compared to the prior CTA chest on 09/28 Problems (1) SIRS (systemic inflammatory response syndrome) Status: Acute Problem Text: Most likely secondary to COPD exacerbation Patient has leukocytosis and increased dyspnea Levofloxacin IV started (2) Diastolic CHF, acute on chronic Status: Acute Problem Text: I's and O's Cardiac diet Lasix IV Echo (3) Insulin dependent diabetes mellitus Status: Chronic Problem Text: NPH twice a day Diabetes is diet (4) COPD exacerbation Onset Date: 05/24/2014 Status: Acute Problem Text: Patient is active smoker Levofloxacin IV Continue inhalers Prednisone 40 mg daily (5) Acute and chronic respiratory failure ([id number]) Status: Acute Problem Text: Multifactorial secondary to acute CHF exacerbation with COPD exacerbation. During walking oxygen saturation dropped to 84-85% Incentive spirometry (6) HTN (hypertension) Status: Chronic Problem Text: Continue home meds (7) HLD (hyperlipidemia) Status: Chronic Problem Text: Continue statin Plan / VTE VTE Prophylaxis Ordered?: Yes ALMA KIMBROUGH DO Feb 10, 2020 22:16
[2020-02-10 22:45] VITALS: BP 151/75
[2020-02-10] MEDS: SPIRONOLACTONE 25 MG TAB PO SCH (23:14)
[2020-02-10] MEDS: ACETAMINOPHEN TAB 650MG DOSE (2X325MG) PO PRN (23:15)
[2020-02-10] MEDS: rOPINIRole 0.25 MG TAB(REQUIP) PO SCH (23:15)
[2020-02-10] MEDS: PREGABALIN 100 MG CAP (LYRICA) PO SCH (23:15)
[2020-02-10] MEDS: DULoxetine 30 MG CAP (CYMBALTA) PO SCH (23:16)
[2020-02-10] MEDS: LevoFLOXacin IV 750 MG in IV 1 EA IV SCH (23:21)
[2020-02-11 00:06] LABS: ABG BASE EXCESS 2.4 (-2.0-2.0); ABG HCO3 27.2 MEQ/L (22.0-26.0); ABG O2 SATURATION 91.9 % (95.0-99.0); ABG PARTIAL PRESSURE CO2 42.9 mmHg (35.0-45.0); ABG PARTIAL PRESSURE O2 62.8 mmHg (75.0-100.0); ABG STANDARD HCO3 26.5 MEQ/L (22.0-26.0); ABG TOTAL CO2 28.5 MEQ/L (23.0-31.0)
[2020-02-11] MEDS: FUROSEMIDE 40MG/4ML VIAL (J1940) IV SCH ×3 (00:56→23:53)
[2020-02-11] MEDS: IPRATROPIUM 0.5MG/ALBUTEROL 2.5MG INH SOL UD 3ML (DUONEB) NEB SCH ×4 (01:38→20:00)
[2020-02-11 06:00] VITALS: BP 148/77
[2020-02-11 06:47] LABS: HEMATOCRIT 43.3 % (36.0-47.0); HEMOGLOBIN 13.7 g/dl (12.0-15.5); MEAN CORPUSCULAR HEMOGLOBIN 26.4 pg (27.0-33.0); MEAN CORPUSCULAR HGB CONC 31.6 g/dl (32.0-36.5); MEAN CORPUSCULAR VOLUME 83.4 fl (80.0-96.0); PLATELET COUNT, AUTOMATED 188 10^3/uL (150-450); RED BLOOD COUNT 5.19 10^6/uL (4.00-5.40); WHITE BLOOD COUNT 16.2 10^3/uL (4.0-10.0)
[2020-02-11 07:05] LABS: ALBUMIN 2.8 GM/DL (3.2-5.2); BILIRUBIN,TOTAL 0.3 MG/DL (0.2-1.0); CALCIUM LEVEL 8.7 MG/DL (8.8-10.2); CREATININE FOR GFR 1.38 MG/DL (0.55-1.30); GLOMERULAR FILTRATION RATE 39.8 (>39); MAGNESIUM LEVEL 2.1 MG/DL (1.8-2.4); POTASSIUM SERUM 4.2 MEQ/L (3.5-5.1); TOTAL PROTEIN 6.7 GM/DL (6.4-8.2)
[2020-02-11] MEDS: SYMBICORT 80/4.5MCG INHALER 6GM INH SCH ×2 (07:23→19:19)
[2020-02-11] MEDS ORDERED: FLUBLOK(EGG FREE)(QUAD)INFLUENZA VACC 0.5ML SYRINGE 18YRS & OLDER IM ONE (09:00)
[2020-02-11] MEDS: PREGABALIN 100 MG CAP (LYRICA) PO SCH ×2 (09:25→21:18)
[2020-02-11] MEDS: DULoxetine 30 MG CAP (CYMBALTA) PO SCH ×2 (09:25→21:20)
[2020-02-11] MEDS: amLODIPine 10 MG TAB PO SCH (09:25)
[2020-02-11] MEDS: SPIRONOLACTONE 25 MG TAB PO SCH ×2 (09:25→21:19)
[2020-02-11] MEDS: ROSUVASTATIN 10 MG TAB (CRESTOR) PO SCH (09:26)
[2020-02-11] MEDS: PANTOPRAZOLE 40MG TAB (PROTONIX) PO SCH (09:26)
[2020-02-11] MEDS: predniSONE 20 MG TAB PO SCH (09:26)
[2020-02-11] MEDS: allopurinoL 300 MG TAB PO SCH (09:26)
[2020-02-11] MEDS: ENOXAPARIN 30MG/0.3ML SYRINGE (J1650 PER 10MG) SC SCH (09:27)
[2020-02-11] MEDS: ACETAMINOPHEN TAB 650MG DOSE (2X325MG) PO PRN (10:40)
[2020-02-11] MEDS: HumuLIN N INSULIN (NovoLIN N) PER UNIT SQ SCH (12:21)
--- NOTE | 2020-02-11 13:53 | IPNPDOC ---
Text Note Date of Service The patient was seen on 02/11/20. NOTE Subjective: Patient stated that she is doing better today, her breathing impr dianne. Patient denied fever, chills, nausea, vomiting, diarrhea or dysuria Objective: GENERAL APPEARANCE: NAD HEENT: no scleral icterus, + JVD, EOMI CARDIOVASCULAR: S1S2 LUNGS: Diminished sounds with bibasilar crackles ABDOMEN: soft & not tender w palpitation MUSCULOSKELETAL: no cyanosis, no swelling INTEGUMENT: no generalized palor NEUROLOGICAL: cranial nerve function from 2-12 intact intact, follows commands, speech not dysarthric Assessment/Plan Patient 73 years old female with past medical history of COPD on 2 L home O2, active smoker, HFpEF, CAD, HTN, DM, RLS, gout presented to the ER with complaints of worsening SOB. Patient stated that today she has been having increased shortness of breath associated with increased cough and yellowish to brownish sputum production. Patient denies any fever or chills. In ER patient was found to have leukocytosis of 22.1, hemoglobin 14.6, creatinine 1.4. CTA was done and showed Cardiomegaly, which is similar in appearance compared to the prior CTA chest on 10/24/2018, 4.5 cm left superior mediastinal/left apical soft tissue density lesion that is unchanged compared to the prior CTAs on 10/24/2018, 05/07/2015 and 11/09/2013. Pretracheal, subcarinal, and bilateral hilar lymphadenopathy, which is stable compared to the prior CTA chest on 10/24/2018 Problems (1) SIRS (systemic inflammatory response syndrome) Improved Most likely secondary to COPD exacerbation Patient has leukocytosis and increased dyspnea Levofloxacin IV (2) Diastolic CHF, acute on chronic I's and O's Cardiac diet Lasix IV Echo pending (3) Insulin dependent diabetes mellitus NPH twice a day Diabetes is diet (4) COPD exacerbation Patient is active smoker Levofloxacin IV Continue inhalers Prednisone 40 mg daily (5) Acute and chronic respiratory failure ([id number]) Improved Multifactorial secondary to acute CHF exacerbation with COPD exacerbation. During walking oxygen saturation dropped to 84-85% Incentive spirometry (6) HTN (hypertension) Continue home meds (7) HLD (hyperlipidemia) Continue statin VS,Fishbone, I+O VS, Fishbone, I+O Laboratory Tests 02/10/20 17:41 02/11/20 06:22 Vital Signs Date Time Temp Pulse Resp B/P (MAP) Pulse Ox O2 Delivery O2 Flow Rate FiO2 02/11/20 09:25 88 155/77 02/11/20 06:00 98.6 18 91 Nasal Cannula 2.0 02/10/20 18:28 93 I&O- Last 24 Hours up to 6 AM 02/11/20 06:00 Intake Total 400 ml Output Total 1730 ml Balance -1330 ml ALMA KIMBROUGH DO Feb 11, 2020 13:53
[2020-02-11 14:00] VITALS: BP 156/73
[2020-02-11] MEDS: PERCOCET 5MG/325MG TAB PO PRN ×2 (15:22→21:27)
[2020-02-11] MEDS ORDERED: GLUCAGON INJ 1MG VIAL SC PRN (18:15)
[2020-02-11] MEDS ORDERED: DEXTROSE 50% 50 ML SYRINGE IV PRN (18:15)
[2020-02-11] MEDS ORDERED: GLUCOSE 4GM CHEW TABLET PO PRN (18:15)
[2020-02-11] MEDS: HumaLOG INSULIN (NovoLOG) PER UNIT SC SCH ×2 (18:27→21:19)
[2020-02-11] MEDS: HumuLIN N INSULIN (NovoLIN N) PER UNIT SC SCH (21:19)
[2020-02-11] MEDS: rOPINIRole 0.25 MG TAB(REQUIP) PO SCH (21:20)
[2020-02-11 22:00] VITALS: BP 154/70
[2020-02-12] MEDS: IPRATROPIUM 0.5MG/ALBUTEROL 2.5MG INH SOL UD 3ML (DUONEB) NEB SCH ×5 (02:00→23:55)
[2020-02-12] MEDS: PERCOCET 5MG/325MG TAB PO PRN ×3 (04:49→20:52)
[2020-02-12 06:00] VITALS: BP 157/81
[2020-02-12 06:01] LABS: BASO % 0.2 % (0.0-1.0); EOS % 0.1 % (0.0-3.0); HEMATOCRIT 39.9 % (36.0-47.0); HEMOGLOBIN 12.8 g/dl (12.0-15.5); LYMPH # 2.2 10^3/uL (1.5-5.0); LYMPH % 12.9 % (24.0-44.0); MEAN CORPUSCULAR HEMOGLOBIN 26.6 pg (27.0-33.0); MEAN CORPUSCULAR HGB CONC 32.1 g/dl (32.0-36.5); MONO # 1.3 10^3/uL (0.0-0.8); MONO % 7.4 % (0.0-5.0); NEUTROPHILS # 13.3 10^3/uL (1.5-8.5); NEUTROPHILS % 78.9 % (36.0-66.0); PLATELET COUNT, AUTOMATED 207 10^3/uL (150-450); RED BLOOD COUNT 4.81 10^6/uL (4.00-5.40); WHITE BLOOD COUNT 16.9 10^3/uL (4.0-10.0)
[2020-02-12 06:22] LABS: CALCIUM LEVEL 8.8 MG/DL (8.8-10.2); CREATININE FOR GFR 1.46 MG/DL (0.55-1.30); GLOMERULAR FILTRATION RATE 37.3 (>39); MAGNESIUM LEVEL 2.1 MG/DL (1.8-2.4); POTASSIUM SERUM 4.1 MEQ/L (3.5-5.1)
[2020-02-12] MEDS: SYMBICORT 80/4.5MCG INHALER 6GM INH SCH ×2 (07:10→19:41)
[2020-02-12] MEDS: ENOXAPARIN 30MG/0.3ML SYRINGE (J1650 PER 10MG) SC SCH (07:43)
[2020-02-12] MEDS: HumaLOG INSULIN (NovoLOG) PER UNIT SC SCH ×4 (07:44→20:53)
[2020-02-12] MEDS: PREGABALIN 100 MG CAP (LYRICA) PO SCH ×2 (07:45→20:52)
[2020-02-12] MEDS: PANTOPRAZOLE 40MG TAB (PROTONIX) PO SCH (07:45)
[2020-02-12] MEDS: SPIRONOLACTONE 25 MG TAB PO SCH ×2 (07:45→20:52)
[2020-02-12] MEDS: HumuLIN N INSULIN (NovoLIN N) PER UNIT SQ SCH (07:45)
[2020-02-12] MEDS: ROSUVASTATIN 10 MG TAB (CRESTOR) PO SCH (07:45)
[2020-02-12] MEDS: allopurinoL 300 MG TAB PO SCH (07:46)
[2020-02-12] MEDS: predniSONE 20 MG TAB PO SCH (07:46)
[2020-02-12] MEDS: DULoxetine 30 MG CAP (CYMBALTA) PO SCH ×2 (07:46→20:52)
[2020-02-12] MEDS: amLODIPine 10 MG TAB PO SCH (07:48)
[2020-02-12] MEDS: FUROSEMIDE 40MG/4ML VIAL (J1940) IV SCH (12:49)
--- NOTE | 2020-02-12 13:52 | ECHO ---
DATE OF PROCEDURE: 02/11/2020 Age: Gender: Height: 157 cm Weight: 69 kg REFERRING PHYSICIAN: Sundeep Morales DO INDICATION: Congestive heart failure, unspecified. MEASUREMENTS: 2D Measurements: Left ventricle diastole 4.8 cm Aortic root 2.6 cm Left atrium 3.5 cm Left atrial volume index 32 cm Aortic root 2.6 cm Intraventricular septum 1.20 cm Posterior wall 1.21 cm Inferior vena cava 1.7 cm (more than 50% respiratory variation) Doppler Measurements: Aortic valve velocity 156 cm/s LVOT velocity 114 cm/s No aortic stenosis No aortic regurgitation No mitral stenosis No mitral regurgitation Mitral E velocity 59.7 cm/s Mitral A velocity 108 cm/s Mitral deceleration time 187 msec Mild tricuspid regurgitation Estimated right ventricular systolic pressure 67-72 mmHg Estimated right atrial pressure 5-10 mmHg No pulmonic regurgitation MITRAL ANNULAR TISSUE DOPPLER E prime lateral 16.1 cm/s, E prime septal 3.0 cm/s DESCRIPTION: Rhythm was sinus. Image quality was fair. No pericardial effusion. This was a 2D, M-mode, color flow Doppler, and pulsed wave Doppler examination including mitral annular tissue Doppler. CONCLUSIONS: 1. Severe elevation of estimated right ventricle systolic pressure (67-72 mmHg). Normal right ventricle size with mild right ventricle hypertrophy. Normal right ventricle systolic function. 2. Very mild concentric left ventricular hypertrophy. Hyperdynamic LV systolic function. LVEF 75% by visual estimate. Grade 1 LV diastolic dysfunction. 3. Mild left atrial dilatation by left atrial volume index. 4. Mild mitral annular calcification. No mitral regurgitation. 5. Mild aortic valve sclerosis of a 3-cuspid aortic valve. No aortic regurgitation. 6. No pericardial effusion. [facility]
[2020-02-12 14:00] VITALS: BP 158/78
--- NOTE | 2020-02-12 15:27 | IPNPDOC ---
Text Note Date of Service The patient was seen on 02/12/20. NOTE Subjective: Patient stated that she is doing better today, her breathing impr dianne. Patient denied fever, chills, nausea, vomiting, diarrhea or dysuria Objective: GENERAL APPEARANCE: NAD HEENT: no scleral icterus, + JVD, EOMI CARDIOVASCULAR: S1S2 LUNGS: Diminished sounds with bibasilar crackles ABDOMEN: soft & not tender w palpitation MUSCULOSKELETAL: no cyanosis, no swelling INTEGUMENT: no generalized palor NEUROLOGICAL: cranial nerve function from 2-12 intact intact, follows commands, speech not dysarthric Assessment/Plan Patient 73 years old female with past medical history of COPD on 2 L home O2, active smoker, HFpEF, CAD, HTN, DM, RLS, gout presented to the ER with complaints of worsening SOB. Patient stated that today she has been having increased shortness of breath associated with increased cough and yellowish to brownish sputum production. Patient denies any fever or chills. In ER patient was found to have leukocytosis of 22.1, hemoglobin 14.6, creatinine 1.4. CTA was done and showed Cardiomegaly, which is similar in appearance compared to the prior CTA chest on 10/24/2018, 4.5 cm left superior mediastinal/left apical soft tissue density lesion that is unchanged compared to the prior CTAs on 10/24/2018, 05/07/2015 and 11/09/2013. Pretracheal, subcarinal, and bilateral hilar lymphadenopathy, which is stable compared to the prior CTA chest on 10/24/2018 Problems (1) SIRS (systemic inflammatory response syndrome) Improved Most likely secondary to COPD exacerbation Patient has leukocytosis and increased dyspnea Levofloxacin IV (2) Diastolic CHF, acute on chronic I's and O's Cardiac diet Lasix IV dose decreased due worsening kidney function Echo pending (3) Insulin dependent diabetes mellitus NPH twice a day Diabetes is diet (4) COPD exacerbation Patient is active smoker Levofloxacin IV Continue inhalers Prednisone 20 mg daily (5) Acute and chronic respiratory failure (siqhd-pu-ssfiyis) Improved Multifactorial secondary to acute CHF exacerbation with COPD exacerbation. During walking oxygen saturation dropped to 84-85% Incentive spirometry (6) HTN (hypertension) Continue home meds (7) HLD (hyperlipidemia) Continue statin Lung nodules CT showed multiple lung nodules, unchanged from previous CT However patient has a high risk for lung cancer due to smoking history Follow-up with drier feeder in the outpatient settings for biopsy or PET scan VS,Raymund[place], I+O VS, [place]mund[place], I+O Laboratory Tests 02/12/20 05:39 Vital Signs Date Time Temp Pulse Resp B/P (MAP) Pulse Ox O2 Delivery O2 Flow Rate FiO2 02/12/20 14:47 18 02/12/20 14:00 98.1 86 158/78 (104) 96 Nasal Cannula 2.0 02/10/20 18:28 93 I&O- Last 24 Hours up to 6 AM 02/12/20 06:00 Intake Total 1350 ml Output Total 1350 ml Balance 0 ml ALMA KIMBROUGH DO Feb 12, 2020 15:27
[2020-02-12] MEDS: rOPINIRole 0.25 MG TAB(REQUIP) PO SCH (20:53)
[2020-02-12] MEDS: HumuLIN N INSULIN (NovoLIN N) PER UNIT SC SCH (20:54)
[2020-02-12 22:00] VITALS: BP 166/77
[2020-02-12] MEDS: LevoFLOXacin IV 750 MG in IV 1 EA IV SCH (23:49)
[2020-02-13] MEDS ORDERED: FUROSEMIDE 40MG/4ML VIAL (J1940) IV SCH
[2020-02-13] MEDS: PERCOCET 5MG/325MG TAB PO PRN (03:04)
[2020-02-13 06:00] VITALS: BP 160/80
[2020-02-13 07:01] LABS: BASO % 0.1 % (0.0-1.0); EOS % 0.2 % (0.0-3.0); HEMOGLOBIN 12.4 g/dl (12.0-15.5); LYMPH # 2.4 10^3/uL (1.5-5.0); LYMPH % 17.9 % (24.0-44.0); MEAN CORPUSCULAR HEMOGLOBIN 26.4 pg (27.0-33.0); MEAN CORPUSCULAR HGB CONC 31.8 g/dl (32.0-36.5); MEAN CORPUSCULAR VOLUME 83.2 fl (80.0-96.0); MONO # 1.2 10^3/uL (0.0-0.8); MONO % 8.8 % (0.0-5.0); NEUTROPHILS # 9.6 10^3/uL (1.5-8.5); NEUTROPHILS % 72.5 % (36.0-66.0); PLATELET COUNT, AUTOMATED 188 10^3/uL (150-450); RED BLOOD COUNT 4.69 10^6/uL (4.00-5.40); WHITE BLOOD COUNT 13.2 10^3/uL (4.0-10.0)
[2020-02-13 07:06] LABS: CALCIUM LEVEL 8.8 MG/DL (8.8-10.2); CREATININE FOR GFR 1.53 MG/DL (0.55-1.30); GLOMERULAR FILTRATION RATE 35.3 (>39); MAGNESIUM LEVEL 1.8 MG/DL (1.8-2.4)
[2020-02-13] MEDS: SYMBICORT 80/4.5MCG INHALER 6GM INH SCH (07:11)
[2020-02-13] MEDS: IPRATROPIUM 0.5MG/ALBUTEROL 2.5MG INH SOL UD 3ML (DUONEB) NEB SCH ×2 (07:11→13:39)
[2020-02-13] MEDS ORDERED: predniSONE 20 MG TAB PO SCH (09:00)
[2020-02-13] MEDS ORDERED: PANTOPRAZOLE 20 MG TAB PO SCH (09:00)
[2020-02-13] MEDS: HumuLIN N INSULIN (NovoLIN N) PER UNIT SQ SCH (09:28)
[2020-02-13] MEDS: HumaLOG INSULIN (NovoLOG) PER UNIT SC SCH ×3 (09:29→17:24)
[2020-02-13] MEDS: ENOXAPARIN 30MG/0.3ML SYRINGE (J1650 PER 10MG) SC SCH (09:30)
[2020-02-13] MEDS: SPIRONOLACTONE 25 MG TAB PO SCH (09:30)
[2020-02-13] MEDS: PREGABALIN 100 MG CAP (LYRICA) PO SCH (09:31)
[2020-02-13] MEDS: ROSUVASTATIN 10 MG TAB (CRESTOR) PO SCH (09:31)
[2020-02-13] MEDS: DULoxetine 30 MG CAP (CYMBALTA) PO SCH (09:31)
[2020-02-13] MEDS: allopurinoL 300 MG TAB PO SCH (09:32)
[2020-02-13 09:34] VITALS: BP 172/88
[2020-02-13] MEDS: amLODIPine 10 MG TAB PO SCH (09:34)
[2020-02-13] MEDS ORDERED: LEVA1TAB2 PO (13:37)
[2020-02-13 13:57] VITALS: BP 173/87
--- NOTE | 2020-02-13 14:39 | DS.PDOC ---
Discharge Summary General Date of Admission Feb 10, 2020 at 21:44 Date of Discharge 02/13/20 Discharge Summary PROCEDURES PERFORMED DURING STAY: [None]. ADMITTING DIAGNOSES: SIRS (systemic inflammatory response syndrome) Diastolic CHF, acute on chronic Insulin dependent diabetes mellitus COPD exacerbation Acute and chronic respiratory failure (smjwc-gf-hliwvuq) HTN (hypertension) HLD (hyperlipidemia) Lung nodules DISCHARGE DIAGNOSES: SIRS (systemic inflammatory response syndrome) Diastolic CHF, acute on chronic Insulin dependent diabetes mellitus COPD exacerbation Acute and chronic respiratory failure (qovhu-kd-mvibxyv) HTN (hypertension) HLD (hyperlipidemia) Lung nodules COMPLICATIONS/CHIEF COMPLAINT: Chf,Copd Exacerbation. HISTORY OF PRESENT ILLNESS: Patient 73 years old female with past medical history of COPD on 2 L home O2, active smoker, HFpEF, CAD, HTN, DM, RLS, gout presented to the ER with complaints of worsening SOB. Patient stated that today she has been having increased shortness of breath associated with increased cough and yellowish to brownish sputum production. Patient denies any fever or chills. In ER patient was found to have leukocytosis of 22.1, hemoglobin 14.6, creatinine 1.4. CTA was done and showed Cardiomegaly, which is similar in appearance compared to the prior CTA chest on 10/24/2018, 4.5 cm left superior mediastinal/left apical soft tissue density lesion that is unchanged compared to the prior CTAs on 10/24/2018, 05/07/2015 and 11/09/2013. Pretracheal, subcarinal, and bilateral hilar lymphadenopathy, which is stable compared to the prior CTA chest on 10/24/2018 HOSPITAL COURSE: During hospital stay the following issues addressed (1) SIRS (systemic inflammatory response syndrome) Resolved Most likely secondary to COPD exacerbation Patient received treatment with Levofloxacin IV (2) Diastolic CHF, acute on chronic I's and O's Cardiac diet Patient received treatment with Lasix IV Echo pending (3) Insulin dependent diabetes mellitus NPH twice a day Diabetes is diet (4) COPD exacerbation Patient is active smoker Levofloxacin IV Continue inhalers Prednisone 20 mg daily (5) Acute and chronic respiratory failure (qxhpf-pr-lkhsvvt) Improved Multifactorial secondary to acute CHF exacerbation with COPD exacerbation. During walking oxygen saturation dropped to 84-85% Incentive spirometry (6) HTN (hypertension) Continue home meds (7) HLD (hyperlipidemia) Continue statin Lung nodules Follow-up with regional owner operator truck driver in the outpatient settings. Patient might need biopsy DISCHARGE MEDICATIONS: Please see below. ALLERGIES: Please see below. PHYSICAL EXAMINATION ON DISCHARGE: VITAL SIGNS: Please see below. GENERAL APPEARANCE: NAD HEENT: no scleral icterus, + JVD, EOMI CARDIOVASCULAR: S1S2 LUNGS: Diminished sounds with bibasilar crackles ABDOMEN: soft & not tender w palpitation MUSCULOSKELETAL: no cyanosis, no swelling INTEGUMENT: no generalized palor NEUROLOGICAL: cranial nerve function from 2-12 intact intact, follows commands, speech not dysarthric LABORATORY DATA: Please see below. IMAGING: PROCEDURE INFORMATION: Exam: CT Angiography Chest With Contrast Exam date and time: 02/10/2020 7:40 PM Age: 74 years old Clinical indication: Shortness of breath; Additional info: Hypoxia above baseline TECHNIQUE: Imaging protocol: Computed tomographic angiography of the chest with intravenous contrast. 3D rendering (Not supervised by radiologist): MIP and/or 3D reconstructed images were created by the technologist. Radiation optimization: All CT scans at this facility use at least one of these dose optimization techniques: automated exposure control; mA and/or kV adjustment per patient size (includes targeted exams where dose is matched to clinical indication); or iterative reconstruction. Contrast material: ISOVUE 370; Contrast volume: 75 ml; Contrast route: INTRAVENOUS (IV); COMPARISON: 1. CT ANGIO CHEST 10/24/2018 5:[address] ANGIO CHEST 05/07/2015 11:07:[address] ANGIO CHEST 11/09/2013 4:41:29 PM FINDINGS: Pulmonary arteries: No pulmonary embolism. The pulmonary artery trunk is dilated and measures 3.9 cm in diameter, which is stable compared to the prior CTA chest on 10/24/2018 and can be seen with pulmonary artery hypertension. Aorta: The thoracic aorta is intact and patent. There is no thoracic aortic aneurysm, pseudoaneurysm, penetrating atherosclerotic ulcer, intramural hematoma, or dissection. There are extensive atherosclerotic calcifications. Great vessels off aortic arch: The brachiocephalic artery, imaged proximal portions of the common carotid arteries, imaged proximal portions of the vertebral arteries, and subclavian arteries are intact. No stenosis or occlusion of these vessels is noted. Thyroid: Unremarkable. Tracheobronchial tree: Intact and patent. Lungs: There is a 4.5 cm left superior mediastinal/left apical soft tissue density lesion that is unchanged compared to the prior CTAs on 10/24/2018, 05/07/2015 and 11/09/2013. No new region of lung consolidation is noted compared to the prior CTA chest on 10/24/2018. There are chronic subpleural reticular opacities in both lungs without significant change compared to the prior CTA chest on 10/24/2018. No honeycombing is noted. There is no cavitary lesion. Pleural space: Normal. No pneumothorax or pleural effusion. Heart: The heart is enlarged. The ratio of the diameter of the right ventricle to the diameter of the left ventricle measures less than 1, which is within normal limits and there is no evidence for a right ventricular strain. There are coronary artery calcifications. No pericardial effusion is noted. There is lipomatous hypertrophy of the interatrial septum. Mediastinal space: No mediastinal fluid collection or pneumomediastinum is noted. Lymph nodes: There is pretracheal, subcarinal, and bilateral hilar lymphadenopathy, which is stable compared to the prior CTA chest on 10/24/2018. For example, there is a 15 mm pretracheal lymph node, a 20 mm subcarinal lymph node, an 11 mm right hilar lymph node, and a 10 mm left hilar lymph node, which are unchanged compared to the prior CTA chest on 10/24/2018. Gallbladder and bile ducts: There are surgical clips in the gallbladder fossa secondary to a cholecystectomy. The common bile duct is dilated and measures 15 PROGNOSIS: ACTIVITY: [As tolerated]. DIET: Cardiac DISPOSITION: . Home DISCHARGE INSTRUCTIONS: Continue incentive spirometry ITEMS TO FOLLOWUP ON ON OUTPATIENT: Follow-up with regional owner operator truck driver and manager of supply chain in 5-7 days DISCHARGE CONDITION: [Stable]. TIME SPENT ON DISCHARGE: Greater than 40 minutes. Vital Signs/I&Os Vital Signs Date Time Temp Pulse Resp B/P (MAP) Pulse Ox O2 Delivery O2 Flow Rate FiO2 02/13/20 13:57 98.1 71 20 173/87 (115) 99 Nasal Cannula 2.0 02/10/20 18:28 93 I&O- Last 24 Hours up to 6 AM 02/13/20 05:59 Intake Total 1820 ml Output Total 2700 ml Balance -880 ml Laboratory Data Labs 24H Laboratory Tests 2 02/12/20 16:38: Bedside Glucose (Misc Panel) 235H 02/12/20 20:20: Bedside Glucose (Misc Panel) 343H 02/13/20 06:14: Immature Granulocyte % (Auto) 0.5, Neutrophils (%) (Auto) 72.5H, Lymphocytes (%) (Auto) 17.9L, Monocytes (%) (Auto) 8.8H, Eosinophils (%) (Auto) 0.2, Basophils (%) (Auto) 0.1, Neutrophils # (Auto) 9.6H, Lymphocytes # (Auto) 2.4, Monocytes # (Auto) 1.2H, Eosinophils # (Auto) 0.0, Basophils # (Auto) 0.0, Nucleated Red Blood Cells % (auto) 0.0, Anion Gap 5L, Glomerular Filtration Rate 35.3L, Calcium Level 8.8, Magnesium Level 1.8 02/13/20 11:34: Bedside Glucose (Misc Panel) 83 CBC/BMP Laboratory Tests 02/13/20 06:14 FSBS Laboratory Tests Test 02/12/20 16:38 02/12/20 20:20 02/13/20 11:34 Range/Units Bedside Glucose (Misc Panel) 235 343 83 83-110 MG/DL Microbiology Microbiology 02/11/20 Gram Stain - Final, Resulted 02/11/20 Sputum Culture, Resulted Pending 02/10/20 Blood Culture - Preliminary, Resulted No Growth after 48 hours. All Specime... 02/10/20 Blood Culture - Preliminary, Resulted No Growth after 48 hours. All Specime... 02/10/20 Blood Culture - Preliminary, Resulted No Growth after 48 hours. All Specime... Discharge Medications Scheduled Allopurinol (Zyloprim) 300 Mg Tab, 300 MG PO DAILY, (Reported) Amlodipine Besylate (Amlodipine Besylate) 10 Mg Tablet, 10 MG PO DAILY, ( Reported) Calcitriol (Calcitriol) 0.25 Mcg Cap, 0.25 MCG PO 5XW, (Reported) MON-FRI Duloxetine Hcl (Duloxetine HCl) 60 Mg Cap, 60 MG PO BID, (Reported) Esomeprazole Magnesium (Nexium) 40 Mg Capsule.dr, 40 MG PO DAILY, (Reported) Insulin Human NPH (Humulin N) 100 Unit/1 Ml Vial, 10 UNITS SC QHS, (Reported) PATIENT HOLDS IN BS IS LESS THAN 300 Insulin NPH Human Isophane (Humulin N Kwikpen) 100 Unit/1 Ml Insuln.pen, 75 UNITS SQ QAM, (Reported) Latanoprost (Xalatan) 0.005% 2.5ML Drops, 1 DROP OU QHS, (Reported) Latanoprost (Xalatan) 0.005% 2.5ML Drops, 1 DROP OU QHS, (Reported) Levofloxacin (Levaquin) 500 Mg Tablet, 500 MG PO Q48H Melatonin (Melatonin) 5 Mg Tablet, 5 MG PO QHS, (Reported) Metolazone (Metolazone) 2.5 Mg Tablet, 2.5 MG PO BID, (Reported) Prednisone (Prednisone) 10 Mg Tab, 10 MG PO DAILY, (Reported) Pregabalin (Lyrica) 200 Mg Cap, 200 MG PO BID, (Reported) Ropinirole HCl (Requip) 0.25 Mg Tablet, 0.5 MG PO QHS, (Reported) Rosuvastatin Calcium (Crestor) 20 Mg Tab, 20 MG PO DAILY, (Reported) Spironolactone (Spironolactone) 25 Mg Tab, 25 MG PO BID, (Reported) Torsemide (Torsemide) 20 Mg Tablet, 40 MG PO BID, (Reported) Umeclidinium [place] (Incruse Ellipta) 62.5 Mcg Blst.w.dev, 1 PUFF INH DAILY, (Reported) Scheduled PRN Albuterol Sulf (Albuterol Sulfate) 2.5 Mg/3 Ml Vial.neb, 2.5 MG INH Q4H PRN for SHORTNESS OF BREATH, (Reported) Albuterol Sulfate (Ventolin Hfa) 108 Mcg/Act Aer, 2 PUFFS INH Q4H PRN for SHORTNESS OF BREATH, (Reported) Hydrocodone/Acetaminophen (Hydrocodone-Acetamin 10-325 mg) 1 Tab Tab, 1 TAB PO Q6H PRN for PAIN, (Reported) Nitroglycerin (Nitrostat) 0.4 Mg Subl, 0.4 MG SL NITRO PRN for CHEST PAIN, (Reported) Nystatin (Nyamyc) 15 Gm Powder, 1 DOSE TOP BID PRN for REDNESS/IRRITATION, (Reported) APPLY TO UNDER BREASTS AND GROIN Allergies Coded Allergies: TAPE (Verified Allergy, Unknown, 12/13/18) ALMA KIMBROUGH DO Feb 13, 2020 14:39
[2020-02-14] MEDS ORDERED: LevoFLOXacin 500 MG TABLET PO SCH (06:00)
--- NOTE | 2020-02-15 12:18 | ECGEPIP ---
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
== END 2020-02-13 18:04 | disposition home or self-care (01) | DRG 189 ==
LOC: EDBD 17:34 → M ED 17:34 → M ED INP 21:44 → ENRESERV 22:13 → M MSPAV 22:45
PROVIDERS: ADMIT Internal Medicine; ATTEND Internal Medicine
DX: J96.20 Acute and chronic respiratory failure, unspecified whether with hypoxia or hypercapnia (principal); I50.33 Acute on chronic diastolic (congestive) heart failure; J44.1 Chronic obstructive pulmonary disease with (acute) exacerbation; I11.0 Hypertensive heart disease with heart failure; R91.8 Other nonspecific abnormal finding of lung field; E11.9 Type 2 diabetes mellitus without complications; E78.5 Hyperlipidemia, unspecified; F17.200 Nicotine dependence, unspecified, uncomplicated; I25.10 Atherosclerotic heart disease of native coronary artery without angina pectoris; M10.9 Gout, unspecified; G25.81 Restless legs syndrome; Z79.4 Long term (current) use of insulin; Z79.899 Other long term (current) drug therapy

== ENCOUNTER 2020-02-27 13:50 | Inpatient (IN) | payer MEDICARE, MEDICAID ==
[~2020-02-27] VITALS: Ht 157.5 cm; Wt 69.8 kg
[~2020-02-27 13:50] MED LIST changes: +LEVA1TAB2 PO
[2020-02-27 14:36] LABS: BASO # 0.1 10^3/uL (0.0-0.2); BASO % 0.4 % (0.0-1.0); EOS # 0.1 10^3/uL (0.0-0.5); EOS % 0.6 % (0.0-3.0); HEMATOCRIT 44.4 % (36.0-47.0); HEMOGLOBIN 14.2 g/dl (12.0-15.5); LYMPH # 2.2 10^3/uL (1.5-5.0); LYMPH % 11.2 % (24.0-44.0); MEAN CORPUSCULAR HEMOGLOBIN 26.2 pg (27.0-33.0); MEAN CORPUSCULAR VOLUME 82.1 fl (80.0-96.0); MONO # 1.5 10^3/uL (0.0-0.8); MONO % 7.3 % (0.0-5.0); NEUTROPHILS # 15.9 10^3/uL (1.5-8.5); NEUTROPHILS % 79.7 % (36.0-66.0); PLATELET COUNT, AUTOMATED 240 10^3/uL (150-450); RED BLOOD COUNT 5.41 10^6/uL (4.00-5.40); WHITE BLOOD COUNT 19.9 10^3/uL (4.0-10.0)
--- NOTE | 2020-02-27 15:15 | REPVR ---
PROCEDURE INFORMATION: Exam: XR Chest, 1 View Exam date and time: 02/27/2020 2:22 PM Age: 74 years old Clinical indication: Shortness of breath; Additional info: SOB TECHNIQUE: Imaging protocol: XR of the chest Views: 1 view. COMPARISON: CR PORTABLE CHEST X-RAY 02/10/2020 5:48 PM FINDINGS: Lungs: Comparison to the previous chest radiograph from 02/10/2020 shows persistence of patchy pneumonia/pneumonitis and or atelectasis in the right lower lobe. There is a small amount of improvement in aeration at the right costophrenic angle. Pleural space: See "Lungs" finding. Heart/Mediastinum: Cardiomegaly is present with mild pulmonary venous congestion. The right pulmonary hilum appears prominent but this is likely an artifact, secondary to rotation of the patient right anterior oblique. Bones/joints: Unremarkable. IMPRESSION: 1. Comparison to the previous chest radiograph from 02/10/2020 shows persistence of patchy pneumonia/pneumonitis and or atelectasis in the right lower lobe. There is a small amount of improvement in aeration at the right costophrenic angle. 2. Cardiomegaly is present with mild pulmonary venous congestion. The right pulmonary hilum appears prominent but this is likely an artifact, secondary to rotation of the patient right anterior oblique. Electronically signed by: Venkata Ha On 02/27/2020 15:15:32 PM
[2020-02-27 16:05] LABS: ALBUMIN 3.3 GM/DL (3.2-5.2); ALT/SGPT 40 U/L (12-78); BILIRUBIN,DIRECT 0.2 MG/DL (0.0-0.2); BILIRUBIN,TOTAL 0.4 MG/DL (0.2-1.0); BLOOD UREA NITROGEN 45 MG/DL (7-18); CALCIUM LEVEL 9.3 MG/DL (8.8-10.2); CARBON DIOXIDE LEVEL 31 MEQ/L (21-32); CHLORIDE LEVEL 94 MEQ/L (98-107); CK-MB VALUE MASS 5.2 NG/ML (<3.6); CPK CREATINE PHOSPHOKINASE 104 U/L (26-192); CREATININE FOR GFR 1.79 MG/DL (0.55-1.30); GLOMERULAR FILTRATION RATE 29.5 (>39); GLUCOSE, FASTING 215 MG/DL (70-100); POTASSIUM SERUM 4.2 MEQ/L (3.5-5.1); SODIUM LEVEL 132 MEQ/L (136-145); TOTAL PROTEIN 6.7 GM/DL (6.4-8.2); TROPONIN I 0.03 NG/ML (< 0.10)
[2020-02-27 16:36] LABS: NT-PRO BNP 359 PG/ML (<125)
--- NOTE | 2020-02-27 16:52 | REPVR ---
PROCEDURE INFORMATION: Exam: CT Chest Without Contrast Exam date and time: 02/27/2020 4:09 PM Age: 74 years old Clinical indication: Other: Persistent rll infiltrate TECHNIQUE: Imaging protocol: Computed tomography of the chest without contrast. 3D rendering (Not supervised by radiologist): MIP and/or 3D reconstructed images were created by the technologist. Radiation optimization: All CT scans at this facility use at least one of these dose optimization techniques: automated exposure control; mA and/or kV adjustment per patient size (includes targeted exams where dose is matched to clinical indication); or iterative reconstruction. COMPARISON: CT ANGIO CHEST 02/10/2020 7:31 PM FINDINGS: Lungs: There are multiple lung findings suggestive of underlying pulmonary fibrotic lung disease with tiny areas of peripheral honeycombing in both lower lobes, patchy areas of ground-glass density in the inferior lingula and anterior right upper lobes, as well as pleural thickening and bronchiolectasis with associated airspace consolidation in the medial right middle lobe seen on images 49 through 63 of series 202. Pleural space: Unremarkable. No pneumothorax. No pleural effusion. Heart: The heart size is normal. Severe coronary artery calcification is present however. Mediastinal space: There is a soft tissue mass present in the lateral left side upper mediastinum on image 20 of series 202, image 74 of series 205 and image 53 of series 203. This measures 4.6 x 2.5 cm transversely and approximately 3.7 cm craniocaudally. The mass lies immediately posterior to the proximal left subclavian artery but appears separate from the artery on images 71 through 78 of series 205. The differential diagnosis includes thymic hyperplasia/thymoma, lymphoma, with a medial left upper lobe lung mass or pleural mass less likely. Pulmonary arteries: The main pulmonary artery trunk is markedly enlarged measuring 4.5 cm transversely on image 43 of series 202 suggestive of underlying central pulmonary arterial hypertension. Aorta: No CT evidence of thoracic aortic aneurysm or acute intramural thoracic aortic hematoma. Lymph nodes: Small shotty lymph nodes are present in the mediastinum. Gallbladder and bile ducts: Prior cholecystectomy. Bones/joints: Moderate chronic degenerative vertebral body endplate osteophytic disease is seen in the mid to lower thoracic spine. Soft tissues: Unremarkable. IMPRESSION: 1. There is a soft tissue mass present in the lateral left side upper mediastinum on image 20 of series 202, image 74 of series 205 and image 53 of series 203. This measures 4.6 x 2.5 cm transversely and approximately 3.7 cm craniocaudally. The mass lies immediately posterior to the proximal left subclavian artery but appears separate from the artery on images 71 through 78 of series 205. The differential diagnosis includes thymic hyperplasia/thymoma, lymphoma, with a medial left upper lobe lung mass or pleural mass less likely. 2. The main pulmonary artery trunk is markedly enlarged measuring 4.5 cm transversely on image 43 of series 202 suggestive of underlying central pulmonary arterial hypertension. 3. No CT evidence of thoracic aortic aneurysm or acute intramural thoracic aortic hematoma. 4. The heart size is normal. Severe coronary artery calcification is present however. 5. There are multiple lung findings suggestive of underlying pulmonary fibrotic lung disease with tiny areas of peripheral honeycombing in both lower lobes, patchy areas of ground-glass density in the inferior lingula and anterior right upper lobes, as well as pleural thickening and bronchiolectasis with associated airspace consolidation in the medial right middle lobe seen on images 49 through 63 of series 202. 6. Small shotty lymph nodes are present in the mediastinum. 7. Moderate chronic degenerative vertebral body endplate osteophytic disease is seen in the mid to lower thoracic spine. 8. Prior cholecystectomy. Electronically signed by: Venkata Ha On 02/27/2020 16:52:29 PM
[2020-02-27] MEDS ORDERED: ALBUTEROL 90 MCG/ACT 8GM HFA INHALER INH PRN ×2 (17:15→18:00)
[2020-02-27] MEDS ORDERED: D3 U5000 PO (17:33)
[2020-02-27] MEDS ORDERED: ASPI81TA86 PO (17:33)
[2020-02-27] MEDS ORDERED: FAMO20TA PO (17:33)
[2020-02-27 17:43] LABS: C REACTIVE PROTEIN QUANTITATIV < 0.30 MG/DL (0.00-0.30)
[2020-02-27] MEDS ORDERED: cefTRIAXone SOD 2 GM in D5W MINI-BAG PLUS 50 ML IV SCH (18:00)
[2020-02-27] MEDS ORDERED: ALBUTEROL SULFATE 2.5 MG/0.5 ML INH NEB SOLN INH PRN (18:00)
[2020-02-27] MEDS ORDERED: NITROGLYCERIN 0.4 MG SUBL TABLET SL PRN (18:00)
[2020-02-27] MEDS ORDERED: NYSTATIN 100,000 UNITS/GM TOPICAL PWD 15 GM TOP PRN (18:00)
[2020-02-27 18:13] LABS: ERYTHROCYTE SEDIMENTATION RATE 4 mm/hr (0-30)
--- NOTE | 2020-02-27 18:31 | HPEPDOC ---
[facility] Medical History & Physical Date of Admission Feb 27, 2020 Date of Service: Feb 27, 2020 History and Physical CHIEF COMPLAINT: weakness 2days after hospital discharge HISTORY OF PRESENTING ILLNESS: 74F recently admitted for CHF exacerbation and pneumonia treated with diuresis and levaquin, followed up with her sterile preparation technician's office Dr. Borrego, without changes in meds presents now with worsening weakness 2 days after hospital discharge. She denies any sob, fever, chills, cough, or sputum production, n/v/d/abd pain, dysuria, urgency, frequency, flank pain, diarrhea, headache, sore throat, changes in vision, hearing, polyphagia, polydipsia, and only admits to unintentional weight loss in the past 1 year from 200lbs when she first moved in with her daughter to 148 lbs now. She denies any diplopia, ptosis, fatigable chewing, feeling that her head is heavy, dysarthria, but has had episodes of dysphagia. Pt c/o feeling tired all the time and wanting to take a nap. She has chronic back pain and leg pain which are alleviated by her q4-6hrs hydrocodone. 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 Troponin was nega tive. wbc 19 from discharge of 13, but pt has been on prednisone. PAST MEDICAL HISTORY: 1. Emphysematous COPD, steroid and 2L o2 dependent 2. Gout 3. HTN 4. CAD 5. Dry eye 6. Depression 7. CHF, diastolic, EF 65% 8. GERD 9. DM 10. Diabetic neuropathy 11. CBP 12. Glaucoma 13. Insomnia 14. RLS 15. DLP 16. Chronic Hypoxic respiratory Failure on 2liters home oxygen 17. Chronic hypercapnic respiratory Failure 18. Active tobacco smoker PAST SURGICAL HISTORY: 1. Left knee joint debridement 2. B/L blepharoplasty 3. Right distal claviculectomy, acromioplasty, bursectomy 4. Cholecystecotmy 5. SHAYLA with B/L OOP 6. EGD 7. Colonoscopy 8. Trigger point injections 9. Multiple back steroid injections 10. Right cataract 11. L3-4 laminectomy and decompression 12. Right breast lesion excision 13. Bronchoscopy HOME MEDICATIONS: pls see below ALLERGIES: TAPE FAMILY HISTORY: Father: , 49, CHF Mother: , 72, CHF Siblings - Sister: Alive, 72 - Brothers: x2, alive, 63, 90 - Sister: , 60s, liver cancer - Sister: , 63, pulmonary HTN, COPD, DM - Brother: , 56, SD - Brother: , 78, CHF SOCIAL HISTORY: * Smoker: current smoker (1 PPD, started at age 35) Alcohol: Denies Drugs: denies Patient lives independently. . 5 children, 1 at age 47 from endocarditis. No pets in the home. 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 No EtOH, illicit drug use. A-FIB/CHADSVASC A-FIB History Current/History of A-Fib/PAF?: No Review of Systems Constitutional: Reports: Weakness (B/L hands); Denies: Chills, Fever, Night Sweats, (+)Weight Loss 200 lbs to 148 lbs in the past year. generalized weakness. Eyes: Denies: Vision change, Conjunctivae inflammation, Eyelid inflammation ENT: Denies: Head Aches, Dysphagia, Sinus Congestion, Post Nasal Drip, Sore Throat, Epistaxis, Skin: Denies: Rash, Lesions, Jaundice, Bruising Pulmonary: Reports: Dyspnea (with requiring increasing oxygen requirements), Cough (productive of clear sputum improved from previous hospital admission) Cardiovascular: Denies: Palpitations, Orthopnea, Paroxysmal Noc. Dyspnea Gastrointestinal: Denies: Nausea, Vomiting, Constipation, Melena, Hematochezia Genitourinary: Denies: Dysuria, Frequency, Incontinence, Hematuria, Retention Hematologic: Reports: Bruising; Denies: Bleeding Excessively, Petecchia Endocrine: Denies: Polydipsia, Polyphagia Musculoskeletal: Reports: Neck Pain, Back Pain, Other Symptoms (elbow pain) Neurological: Reports: generalized Weakness PHYSICAL EXAMINATION: VITALS: SEE BELOW General Exam: Positive: Alert, Cooperative Eye Exam: Positive: PERRLA, Conjunctiva & lids normal, EOMI, Other Eye Symptoms (wears spectacles); Negative: Sclera icteric, Ptosis ENT Exam: Positive: Atraumatic, Mucous membr. moist/pink, Pharynx Normal, Tongue Midline, Nares Patent; Negative: Pharyngeal Edema Neck Exam: Positive: Supple, no JVD, +2 carotid pulse wo bruit; Negative: thyromegaly, Lymphadenopathy Chest Exam: Positive: rhonchi Heart Exam: Positive: Rate Normal, Regular Rhythm, Normal S1, Normal S2; Negative: Gallops, Murmurs, Rubs Telemetry: Positive: Sinus, PACs, Other Telemetry: (leftward axis, LAFB) Abdomen Exam: Positive: BS Soft, Other (stretch kat, midline healed abdominal surgical incision); Negative: Tenderness, Hepatospenomegaly, Mass, Hernia Extremity Exam: Positive: trace edema b/l LE Normal pulses, Negative: Clubbing, Cyanosis, Tenderness Skin Exam: Positive: Other skin issue (many ecchymoses noted on B/L UE) Neuro Exam: Positive: Normal Speech, Cranial Nerves 3-12 NL Psych Exam: Positive: Oriented x 3 LABORATORY DATA: pls see below IMAGING STUDIES: PROCEDURE INFORMATION: Exam: CT Chest Without Contrast Exam date and time: 02/27/2020 4:09 PM Age: 74 years old Clinical indication: Other: Persistent rll infiltrate TECHNIQUE: Imaging protocol: Computed tomography of the chest without contrast. 3D rendering (Not supervised by radiologist): MIP and/or 3D reconstructed images were created by the technologist. Radiation optimization: All CT scans at this facility use at least one of these dose optimization techniques: automated exposure control; mA and/or kV adjustment per patient size (includes targeted exams where dose is matched to clinical indication); or iterative reconstruction. COMPARISON: CT ANGIO CHEST 02/10/2020 7:31 PM FINDINGS: Lungs: There are multiple lung findings suggestive of underlying pulmonary fibrotic lung disease with tiny areas of peripheral honeycombing in both lower lobes, patchy areas of ground-glass density in the inferior lingula and anterior right upper lobes, as well as pleural thickening and bronchiolectasis with associated airspace consolidation in the medial right middle lobe seen on images 49 through 63 of series 202. Pleural space: Unremarkable. No pneumothorax. No pleural effusion. Heart: The heart size is normal. Severe coronary artery calcification is present however. Mediastinal space: There is a soft tissue mass present in the lateral left side upper mediastinum on image 20 of series 202, image 74 of series 205 and image 53 of series 203. This measures 4.6 x 2.5 cm transversely and approximately 3.7 cm craniocaudally. The mass lies immediately posterior to the proximal left subclavian artery but appears separate from the artery on images 71 through 78 of series 205. The differential diagnosis includes thymic hyperplasia/thymoma, lymphoma, with a medial left upper lobe lung mass or pleural mass less likely. Pulmonary arteries: The main pulmonary artery trunk is markedly enlarged measuring 4.5 cm transversely on image 43 of series 202 suggestive of underlying central pulmonary arterial hypertension. Aorta: No CT evidence of thoracic aortic aneurysm or acute intramural thoracic aortic hematoma. Lymph nodes: Small shotty lymph nodes are present in the mediastinum. Gallbladder and bile ducts: Prior cholecystectomy. Bones/joints: Moderate chronic degenerative vertebral body endplate osteophytic disease is seen in the mid to lower thoracic spine. Soft tissues: Unremarkable. IMPRESSION: 1. There is a soft tissue mass present in the lateral left side upper mediastinum on image 20 of series 202, image 74 of series 205 and image 53 of series 203. This measures 4.6 x 2.5 cm transversely and approximately 3.7 cm craniocaudally. The mass lies immediately posterior to the proximal left subclavian artery but appears separate from the artery on images 71 through 78 of series 205. The differential diagnosis includes thymic hyperplasia/thymoma, lymphoma, with a medial left upper lobe lung mass or pleural mass less likely. 2. The main pulmonary artery trunk is markedly enlarged measuring 4.5 cm transversely on image 43 of series 202 suggestive of underlying central pulmonary arterial hypertension. 3. No CT evidence of thoracic aortic aneurysm or acute intramural thoracic aortic hematoma. 4. The heart size is normal. Severe coronary artery calcification is present however. 5. There are multiple lung findings suggestive of underlying pulmonary fibrotic Electronically signed by: Angela Ha On 02/27/2020 16:52:29 PM DD: ANGELA HA MD 02/27/20 1609 DT: QUENTIN 02/27/20 165 DS: AALIYAH 02/27/20 165 ASSESSMENT AND PLAN: 74F recently admitted for CHF exacerbation and pneumonia treated with diuresis and levaquin, followed up with her sterile preparation technician's office Dr. Borrego, without changes in meds presents now with worsening weakness 2 days after hospital dis charge. She denies any sob, fever, chills, cough, or sputum production, n/v/d/abd pain, dysuria, urgency, frequency, flank pain, diarrhea, headache, sore throat, changes in vision, hearing, polyphagia, polydipsia, and only admits to unintentional weight loss in the past 1 year from 200lbs when she first moved in with her daughter to 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 Troponin was negative. wbc 19 from discharge of 13, but pt has been on prednisone. 1. Community Acquired RLL Pneumonia 2. Failure to thrive 3. 52 Weight loss for the past year 4. Steroid-induced Leukocytosis vs Reactive Leukocytosis 5. COPD, compensated 6. 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 CHF with preserved systolic function, grade 1 Diastolic dysfunction, compensated 8. Mediastinal mass 4.6 x 2.5 cm / ? Thymoma rule out myasthenia gravis 9. Active Tobacco abuse 10. Chronic hypoxic and chronic hypercapnic respiratory failure 11. Chronic bronchiectasis 12. Pulmonary Fibrosis 13. Generalized weakness 14. Dysphagia, intermittent Plan: Due to leukocytosis with wbc 19, will continue on iv ceftriaxone and doxycycline to cover typical gram negative and atypical bacteria, obtain sputum, blood, urine cx, continue albuterol, keep o2 sat 88-92% with supplemental oxygen. check tsh and a1c to evaluate weight loss. resume home meds for chf as she appears euvolemic, but monitor for worsening azotemia with daily basic metabolic panel. replete any electrolyte abnormalities. cycle card kat, and review CT Chest with her export clerk. Pt presents with B symptoms, and a mediastinal mass, but no significant LAD to suspect lymphoma. Due to worsening weakness and possible thymoma, may benefit from neurology referral for myasthenia gravis at some point for repetitive nerve stimulation test. will do serologic workup to rule out myasthenia gravis including Binding, blocking, and modulating Acet ylcholinesterase receptor antibodies, and if negative muSK ab, or anti-striated muscle antibody if available. If persistent dysphagia, can check UGI series and swallow evaluation. Vital Signs Vital Signs Date Time Temp Pulse Resp B/P (MAP) Pulse Ox O2 Delivery O2 Flow Rate FiO2 02/27/20 15:30 73 144/82 (102) 97 Nasal Cannula 2.0 02/27/20 14:07 97.2 18 Laboratory Data Labs 24H Laboratory Tests 2 02/27/20 14:14: Immature Granulocyte % (Auto) 0.8, Neutrophils (%) (Auto) 79.7H, Lymphocytes (%) (Auto) 11.2L, Monocytes (%) (Auto) 7.3H, Eosinophils (%) (Auto) 0.6, Basophils (%) (Auto) 0.4, Neutrophils # (Auto) 15.9H, Lymphocytes # (Auto) 2.2, Monocytes # (Auto) 1.5H, Eosinophils # (Auto) 0.1, Basophils # (Auto) 0.1, Nucleated Red Blood Cells % (auto) 0.0 02/27/20 14:51: POC pH (Misc Panel) 7.444, POC Base Excess (Misc Panel) 5.0H, POC Saturated Percent O2 (Misc) 96, POC pO2 (Misc Panel) 82.0, POC pCO2 (Misc Panel) 42.3, POC HCO3 (Misc Panel) 29.0H, POC Total CO2 (Misc Panel) 30.0H 02/27/20 15:17: Anion Gap 7L, Glomerular Filtration Rate 29.5L, Calcium Level 9.3, Total Bilirubin 0.4, Direct Bilirubin 0.2, Aspartate Amino Transf (AST/SGOT) 25, Alanine Aminotransferase (ALT/SGPT) 40, Alkaline Phosphatase 75, Total Creatine Kinase 104, Creatine Kinase MB 5.2H, Creatine Kinase MB Relative Index 5.00H, Troponin I 0.03, IP-Xma-N-Type Natriuretic Peptide 359H, Total Protein 6.7, Albumin 3.3, Albumin/Globulin Ratio 1.0L CBC/BMP Laboratory Tests 02/27/20 14:14 02/27/20 15:17 Microbiology Microbiology 02/27/20 Blood Culture, Received Pending 02/27/20 Blood Culture, Received Pending Home Medications Scheduled Allopurinol (Zyloprim) 300 Mg Tab, 300 MG PO DAILY Amlodipine Besylate (Amlodipine Besylate) 10 Mg Tablet, 10 MG PO DAILY Aspirin (Aspir 81) 81 Mg Tablet.dr, 81 MG PO QHS Calcitriol (Calcitriol) 0.25 Mcg Cap, 0.25 MCG PO 5XW MON-TUE Cholecalciferol (Vitamin D3) (Vitamin D3) 125 Mcg Capsule, 5,000 MCG PO DAILY Duloxetine Hcl (Duloxetine HCl) 60 Mg Cap, 60 MG PO BID Esomeprazole Magnesium (Nexium) 40 Mg Capsule.dr, 40 MG PO DAILY Famotidine (Famotidine) 20 Mg Tablet, 20 MG PO QHS Insulin NPH Human Isophane (Humulin N Kwikpen) 100 Unit/1 Ml Insuln.pen, 75 UNITS SQ QAM Latanoprost (Xalatan) 0.005% 2.5ML Drops, 1 DROP OU QHS Melatonin (Melatonin) 5 Mg Tablet, 5 MG PO QHS Metolazone (Metolazone) 2.5 Mg Tablet, 2.5 MG PO 3XW MON/WED/FRI Prednisone (Prednisone) 10 Mg Tab, 10 MG PO DAILY Pregabalin (Lyrica) 200 Mg Cap, 200 MG PO BID Ropinirole HCl (Requip) 0.25 Mg Tablet, 0.5 MG PO QHS Rosuvastatin Calcium (Crestor) 20 Mg Tab, 20 MG PO QHS Spironolactone (Spironolactone) 25 Mg Tab, 25 MG PO BID Torsemide (Torsemide) 20 Mg Tablet, 40 MG PO BID TAKES AM/1600 Umeclidinium [place] (Incruse Ellipta) 62.5 Mcg Blst.w.dev, 1 PUFF INH DAILY Scheduled PRN Albuterol Sulf (Albuterol Sulfate) 2.5 Mg/3 Ml Vial.neb, 2.5 MG INH Q4H PRN for SHORTNESS OF BREATH Albuterol Sulfate (Ventolin Hfa) 108 Mcg/Act Aer, 2 PUFFS INH Q4H PRN for SHORTNESS OF BREATH Hydrocodone/Acetaminophen (Hydrocodone-Acetamin 10-325 mg) 1 Tab Tab, 1 TAB PO Q6H PRN for PAIN Nitroglycerin (Nitrostat) 0.4 Mg Subl, 0.4 MG SL NITRO PRN for CHEST PAIN Nystatin (Nyamyc) 15 Gm Powder, 1 DOSE TOP BID PRN for REDNESS/IRRITATION APPLY TO UNDER BREASTS AND GROIN Allergies Coded Allergies: TAPE (Verified Allergy, Unknown, 12/13/18) A-FIB/CHADSVASC A-FIB History Current/History of A-Fib/PAF?: No Current PO Anticoag Therapy: No Age/Risk Factor Scoring CHADSVASC: CHADSVASC Response (Comments) Value Age Risk Factor Age 65-74 years old 1 Gender Risk Factor Female 1 Hx of CHF Yes 1 Hx of HTN Yes 1 Hx of Stroke/TIA/or VTE No 0 Hx of Diabetes No 0 Hx of Vascular Disease No 0 Total 4 Treatment Treatment ordered: NONE JENNIFER PONCE MD Feb 27, 2020 17:23
[2020-02-27] MEDS ORDERED: amLODIPine 10 MG TAB PO ONE (19:15)
[2020-02-27 20:22] VITALS: BP 176/78
[2020-02-27] MEDS ORDERED: ANEXSIA, NORCO 7.5MG/325MG TABLET(HYDROCODONE/APAP) PO ONE (20:30)
--- NOTE | 2020-02-27 20:43 | ECGEPIP ---
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
[2020-02-27] MEDS ORDERED: DOXYCYCLINE HYCLATE 100 MG in D5W MINI-BAG PLUS 100 ML IV SCH (21:00)
[2020-02-27] MEDS ORDERED: SPIRONOLACTONE 25 MG TAB PO SCH (21:00)
[2020-02-27] MEDS: FAMOTIDINE 20 MG TAB PO SCH (21:02)
[2020-02-27] MEDS: ASPIRIN 81 MG ENTERIC TAB PO SCH (21:02)
[2020-02-27] MEDS: LATANOPROST 0.005% OPHTH SOLN 2.5 ML OU SCH (21:02)
[2020-02-27] MEDS: rOPINIRole 0.25 MG TAB(REQUIP) PO SCH (21:03)
[2020-02-27] MEDS: DULoxetine 30 MG CAP (CYMBALTA) PO SCH (21:03)
[2020-02-27] MEDS: ROSUVASTATIN 10 MG TAB (CRESTOR) PO SCH (21:03)
[2020-02-27] MEDS: PREGABALIN 100 MG CAP (LYRICA) PO SCH (21:06)
[2020-02-28 00:35] LABS: CK-MB VALUE MASS 5.2 NG/ML (<3.6); MB/CK RELATIVE INDEX 4.3 (< OR =4); TROPONIN I 0.04 NG/ML (< 0.10)
[2020-02-28] MEDS: ANEXSIA, NORCO 7.5MG/325MG TABLET(HYDROCODONE/APAP) PO PRN ×3 (05:29→20:29)
[2020-02-28 06:00] VITALS: BP 148/83
[2020-02-28 06:43] LABS: HEMATOCRIT 41.2 % (36.0-47.0); HEMOGLOBIN 13.2 g/dl (12.0-15.5); MEAN CORPUSCULAR HEMOGLOBIN 26.1 pg (27.0-33.0); MEAN CORPUSCULAR VOLUME 81.6 fl (80.0-96.0); PLATELET COUNT, AUTOMATED 230 10^3/uL (150-450); RED BLOOD COUNT 5.05 10^6/uL (4.00-5.40); WHITE BLOOD COUNT 15.9 10^3/uL (4.0-10.0)
[2020-02-28 07:06] LABS: HEMOGLOBIN A1c 6.9 %
[2020-02-28 07:22] LABS: CALCIUM LEVEL 9.5 MG/DL (8.8-10.2); CREATININE FOR GFR 1.99 MG/DL (0.55-1.30); GLOMERULAR FILTRATION RATE 26.1 (>39); MB/CK RELATIVE INDEX 4.4 (< OR =4); POTASSIUM SERUM 3.7 MEQ/L (3.5-5.1); THYROID STIMULATING HORMONE 1.72 uIU/ML (0.358-3.740); TROPONIN I 0.05 NG/ML (< 0.10)
[2020-02-28] MEDS: CALCITRIOL 0.25 MCG CAP (S0169) PO SCH (08:08)
[2020-02-28] MEDS: DULoxetine 30 MG CAP (CYMBALTA) PO SCH ×2 (08:09→20:28)
[2020-02-28] MEDS: PREGABALIN 100 MG CAP (LYRICA) PO SCH ×2 (08:09→20:28)
[2020-02-28] MEDS: amLODIPine 10 MG TAB PO SCH (08:09)
[2020-02-28] MEDS: allopurinoL 300 MG TAB PO SCH (08:09)
[2020-02-28] MEDS: PANTOPRAZOLE 40MG TAB (PROTONIX) PO SCH (08:09)
[2020-02-28] MEDS: HumuLIN N INSULIN (NovoLIN N) PER UNIT SQ SCH (08:14)
[2020-02-28] MEDS ORDERED: TORSEMIDE 20 MG TAB PO SCH (09:00)
[2020-02-28] MEDS ORDERED: MOXIFLOXACIN 400 MG TAB PO ONE (12:00)
[2020-02-28 14:00] VITALS: BP 149/78
[2020-02-28] MEDS: ASPIRIN 81 MG ENTERIC TAB PO SCH (20:28)
[2020-02-28] MEDS: FAMOTIDINE 20 MG TAB PO SCH (20:28)
[2020-02-28] MEDS: ROSUVASTATIN 10 MG TAB (CRESTOR) PO SCH (20:28)
[2020-02-28] MEDS: rOPINIRole 0.25 MG TAB(REQUIP) PO SCH (20:28)
[2020-02-28] MEDS: LATANOPROST 0.005% OPHTH SOLN 2.5 ML OU SCH (20:29)
[2020-02-28 22:00] VITALS: BP 150/77
[2020-02-29] MEDS: ANEXSIA, NORCO 7.5MG/325MG TABLET(HYDROCODONE/APAP) PO PRN ×3 (04:46→20:04)
[2020-02-29] MEDS: MOXIFLOXACIN 400 MG TAB PO SCH (05:23)
[2020-02-29 06:00] VITALS: BP 149/76
[2020-02-29 06:36] LABS: HEMATOCRIT 41.6 % (36.0-47.0); HEMOGLOBIN 13.6 g/dl (12.0-15.5); MEAN CORPUSCULAR HEMOGLOBIN 26.8 pg (27.0-33.0); MEAN CORPUSCULAR HGB CONC 32.7 g/dl (32.0-36.5); MEAN CORPUSCULAR VOLUME 81.9 fl (80.0-96.0); PLATELET COUNT, AUTOMATED 224 10^3/uL (150-450); RED BLOOD COUNT 5.08 10^6/uL (4.00-5.40); WHITE BLOOD COUNT 13.8 10^3/uL (4.0-10.0)
[2020-02-29 07:05] LABS: CALCIUM LEVEL 9.2 MG/DL (8.8-10.2); CREATININE FOR GFR 1.92 MG/DL (0.55-1.30); GLOMERULAR FILTRATION RATE 27.2 (>39)
[2020-02-29] MEDS: allopurinoL 300 MG TAB PO SCH (08:04)
[2020-02-29] MEDS: DULoxetine 30 MG CAP (CYMBALTA) PO SCH ×2 (08:04→20:04)
[2020-02-29] MEDS: PANTOPRAZOLE 40MG TAB (PROTONIX) PO SCH (08:04)
[2020-02-29] MEDS: PREGABALIN 100 MG CAP (LYRICA) PO SCH ×2 (08:04→20:04)
[2020-02-29] MEDS: HumuLIN N INSULIN (NovoLIN N) PER UNIT SQ SCH (08:04)
[2020-02-29] MEDS: CALCITRIOL 0.25 MCG CAP (S0169) PO SCH (08:04)
[2020-02-29] MEDS: amLODIPine 10 MG TAB PO SCH (08:09)
--- NOTE | 2020-02-29 10:09 | IPN ---
DATE: 02/28/2020 SUBJECTIVE: Patient seen and examined at the bedside. Chart has been reviewed. This morning still complains of generalized weakness. She otherwise denies any shortness of breath, chest pain, pressure, or tightness, lightheadedness, or dizziness. She denies any dysuria, urgency, frequency, fever, chills, or flank pain. She continues to complain of occasional dysphagia to solids and liquids. She has had some weight loss as well as chronic left lid lag. She complains of some difficulty with chewing her food and fatigability at times. She presented to the emergency room for evaluation of generalized weakness, which has progressed on since she was released from the hospital. She was noted to have significant leukocytosis with white count of 19,000, decreased to 15.9. Imaging studies included CT chest, which was showing improved right middle lobe consolidation and bronchiectasis. OBJECTIVE: PHYSICAL EXAMINATION: VITAL SIGNS: Temperature 98.3, pulse 80, respiratory rate 18, blood pressure 148/83, 94% on 2 liters nasal cannula. GENERAL: Patient appears older than her stated age. No respiratory distress, cyanosis. Patient has dry mucous membranes with chapped lips. No jugular venous distention (JVD) or thyromegaly. LUNGS: Diminished with bilateral coarse rhonchi. HEART: S1, S2, sinus rhythm. ABDOMEN: Soft, nontender, nondistended. Positive bowel sounds. No costovertebral angle (CVA) tenderness. EXTREMITIES: No cyanosis, clubbing, or pitting edema. LABORATORY DATA: White count 15.9, hemoglobin 13, hematocrit 41, platelet count 230. Sodium 129, potassium 3.7, chloride 93, bicarbonate 32, BUN 52, creatinine 1.99, glucose 193. A1c of 6.9. Troponin 0.05. TSH 1.72. ASSESSMENT AND PLAN: This is a 74-year-old female recently discharged after being treated for congestive heart failure (CHF) exacerbation and pneumonia. Completed a full course of Levaquin as outpatient. Presented to the emergency room with complaints of generalized weakness 2 days after hospital discharge, which has progressed along. She was found to have a white count of 19,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 IMPRESSION: 1. Resolving right lower lobe pneumonia. Patient completed Levaquin as outpatient, now with elevated white count. Patient's C-reactive protein (CRP) and sedimentation rate are negative. She is afebrile. She still complains of cough productive of yellow sputum, most likely due to bronchiectasis. Therefore, we will continue with oral antibiotics. Ceftriaxone and doxycycline have been discontinued. She will be continued on Avelox 400 mg to complete a full 7-day course. Attempt to clear her bronchiectasis with some Acapella. Avoid over- diuresis. 2. Acute on chronic renal failure, currently a stage IV creatinine. Her diuretics have been held temporarily. Chest CT shows chronic fibrosis and prior right lower lobe pneumonia. No signs of fluid overload but will continue to monitor renal function. Once we know function is improved with decreasing creatinine back to normal, will resume patient's diuretics. 3. Hypertension. Continue on Norvasc for now. 4. Depression. Continue on Cymbalta. 5. Chronic neuropathy, on Lyrica. 6. Reflux. Continue on Protonix. 7. Restless legs. Continue Requip. 8. Congestive heart failure. Patient's Aldactone and torsemide have been held due to acute on chronic renal failure. 9, Weight loss with left-sided lid lag. Complains of dysphagia and fatigable mastication, rule out myasthenia gravis. We have checked acetylcholine, esterase antibodies. If abnormal, may refer to neurology for repetitive nerve stimulation test for confirmation and treatment. CAROL ANND
--- NOTE | 2020-02-29 12:50 | IPNPDOC ---
Date Seen The patient was seen on 02/29/20. Progress Note SUBJECTIVE: Patient seen and examined at the bedside. Chart has been reviewed. patient has been continued on Avelox due to increased risk of persistent bacterial infection due to chronic bronchiectasis despite completing a full course of antibiotics during the previous admission. She remains afebrile with decreasing white count. She currently says that her breathing is improved but still dyspneic on exertion and generalized weakness. The patient continues to have decreased appetite, awaiting nutrition consult for failure to thrive and unintentional weight loss. She otherwise complains of occasional fatigability with chewing as well as dysphagia to solids. OBJECTIVE: PHYSICAL EXAMINATION: VITAL SIGNS: SEE BELOW GENERAL: Speaks in full sentences. No conversational dyspnea. Speech is fluent. Face is symmetric. Patient has slitlike in the left upper eyelid No respiratory distress, cyanosis. Patient has dry mucous membranes with chapped lips. No jugular venous distention (JVD) or thyromegaly. LUNGS: Diminished with bilateral coarse rhonchi. , Air entry is equal bilaterally HEART: S1, S2, sinus rhythm. ABDOMEN: Soft, nontender, nondistended. Positive bowel sounds. No costoverteb ralangle (CVA) tenderness. EXTREMITIES: No cyanosis, clubbing, or pitting edema. LABORATORY DATA: see below IMAGING STUDIES: see chart ASSESSMENT AND PLAN: This is a 74-year-old female recently discharged after being treated for congestive heart failure (CHF) exacerbation and pneumonia. Completed a full course of Levaquin as outpatient. Presented to the emergency room with complaints of generalized weakness 2 days after hospital discharge, which has progressed along. She was found to have a white count of 19,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 IMPRESSION: 1. Resolving right lower lobe pneumonia. 2. Acute on chronic renal failure, currently a stage IV 3. Hypertension. 4. Depression 5. Chronic neuropathy 6. Reflux. 7. Restless legs. 8. Congestive heart failure with preserved systolic function, compensated. 9. Unintentional Weight loss with left-sided lid lag. Complains of dysphagia and fatigable mastication, rule out myasthenia gravis. 10. Chronic bronchiectasis 11. Generalized weakness and fatigue PLAN: Patient was admitted for evaluation of generalized weakness and fatigue which occurred 2 days after hospital discharge at home. Per the daughter, ervin price usually does not complain and does not like being in the hospital, but the patient was concerned that "something is going on." Evaluation in the ER included a CT chest which showed resolving pneumonia, improved from previous. She has completed a full course of antibiotics at home, but with persisting cough and increased white count of 20,000. She was initially treated with IV ceftriaxone and intravenous doxycycline. Due to normal. Last CRP in sedimentation rate despite increased white count. IV antibiotics have been discontinued. However, because of chronic bronchiectasis and increased a ggressive infection. Patient had been On Avelox, which symptomatic improvement with decrease in cough production and change in sputum production to White from yellow. Patient is concerned about hair unintentional weight loss, as well as dysphagia which have not been looked at previously due to nonspecific complaints and CT chest showing a possible thymoma versus thymic hyperplasia. We are ruling her out for myasthenia gravis and have sent off anticholinesterase receptor antibodies as well as MGUS K antibody. If abnormal, patient will benefit from neurology referral in order to confirm with the repetitive stimulation test. Patient has past home safety evaluation. We are waiting for her kidney function to return back to baseline of stage III and has been without her diuretics since hospital admission. She currently denies any shortness of breath or signs of fluid overload. . She appears to be clinically euvolemic. However, we will need to wait until the creatinine and GFR are back to baseline before resuming her diuretics. We are continuing strict I's and O's, daily weights to monitor for any fluid overload and she has been advised to tell her nurse in case shortness of breath were to occur. VS[facility]&O, [facility] Vital Signs/I&O Vital Signs Date Time Temp Pulse Resp B/P (MAP) Pulse Ox O2 Delivery O2 Flow Rate FiO2 02/29/20 11:43 20 02/29/20 09:00 2.0 02/29/20 08:09 92 140/80 02/29/20 06:00 97.2 91 Nasal Cannula I&O- Last 24 Hours up to 6 AM 02/29/20 06:00 Intake Total 945 ml Output Total 1000 ml Balance -55 ml Laboratory Data 24H LABS Laboratory Tests 2 02/28/20 16:25: Bedside Glucose (Misc Panel) 185H 02/28/20 19:44: Bedside Glucose (Misc Panel) 253H 02/29/20 06:04: Nucleated Red Blood Cells % (auto) 0.0, Anion Gap 5L, Glomerular Filtration Rate 27.2L, Calcium Level 9.2 02/29/20 11:28: Bedside Glucose (Misc Panel) 85 CBC/BMP Laboratory Tests 02/29/20 06:04 Microbiology Microbiology 02/28/20 Gram Stain - Final, Resulted 02/28/20 Sputum Culture, Resulted Pending 02/27/20 Blood Culture - Preliminary, Resulted No growth after 24 hours . All specim... 02/27/20 Blood Culture - Preliminary, Resulted No growth after 24 hours . All specim... JENNIFER PONCE MD Feb 29, 2020 12:34
[2020-02-29 14:00] VITALS: BP 131/72
[2020-02-29] MEDS: FAMOTIDINE 20 MG TAB PO SCH (20:04)
[2020-02-29] MEDS: rOPINIRole 0.25 MG TAB(REQUIP) PO SCH (20:04)
[2020-02-29] MEDS: ASPIRIN 81 MG ENTERIC TAB PO SCH (20:04)
[2020-02-29] MEDS: ROSUVASTATIN 10 MG TAB (CRESTOR) PO SCH (20:04)
[2020-02-29] MEDS: LATANOPROST 0.005% OPHTH SOLN 2.5 ML OU SCH (20:05)
[2020-02-29 22:00] VITALS: BP 133/65
[2020-03-01] MEDS: ANEXSIA, NORCO 7.5MG/325MG TABLET(HYDROCODONE/APAP) PO PRN ×2 (01:47→18:04)
[2020-03-01] MEDS: MOXIFLOXACIN 400 MG TAB PO SCH (05:29)
[2020-03-01 06:00] VITALS: BP 133/65
[2020-03-01 06:42] LABS: HEMATOCRIT 40.5 % (36.0-47.0); HEMOGLOBIN 12.8 g/dl (12.0-15.5); MEAN CORPUSCULAR HEMOGLOBIN 26.3 pg (27.0-33.0); MEAN CORPUSCULAR HGB CONC 31.6 g/dl (32.0-36.5); MEAN CORPUSCULAR VOLUME 83.3 fl (80.0-96.0); PLATELET COUNT, AUTOMATED 200 10^3/uL (150-450); RED BLOOD COUNT 4.86 10^6/uL (4.00-5.40); WHITE BLOOD COUNT 11.6 10^3/uL (4.0-10.0)
[2020-03-01 07:09] LABS: CREATININE FOR GFR 1.64 MG/DL (0.55-1.30); GLOMERULAR FILTRATION RATE 32.6 (>39); POTASSIUM SERUM 3.9 MEQ/L (3.5-5.1)
[2020-03-01] MEDS: HumuLIN N INSULIN (NovoLIN N) PER UNIT SQ SCH (08:00)
--- NOTE | 2020-03-01 08:42 | REPVR ---
PROCEDURE INFORMATION: Exam: XR Chest, 1 View Exam date and time: 03/01/2020 7:38 AM Age: 74 years old Clinical indication: Shortness of breath; Additional info: SOB TECHNIQUE: Imaging protocol: XR of the chest Views: 1 view. COMPARISON: CT Chest without contrast 02/27/2020 4:03 PM FINDINGS: Lungs: Stable chronic interstitial changes in the lungs bilaterally suggesting pulmonary fibrosis.No acute infiltrate or consolidation is seen. Pleural space: No pleural effusion. No pneumothorax. Heart/Mediastinum: The heart demonstrates mild diffuse enlargement. Bones/joints: There is a mild scoliosis. There is moderate diffuse osteopenia. Metallic hardware is seen in the lumbar spine. Soft tissues: Soft tissue mass is again noted in the left paratracheal region in the superior mediastinum. IMPRESSION: 1. Stable chronic interstitial changes in the lungs bilaterally suggesting pulmonary fibrosis.No acute infiltrate or consolidation is seen. 2. Soft tissue mass is again noted in the left paratracheal region in the superior mediastinum. Electronically signed by: Stefan Hills On 03/01/2020 08:41:40 AM
[2020-03-01] MEDS: DULoxetine 30 MG CAP (CYMBALTA) PO SCH ×2 (09:20→20:16)
[2020-03-01] MEDS: PREGABALIN 100 MG CAP (LYRICA) PO SCH ×2 (09:21→20:16)
[2020-03-01] MEDS: PANTOPRAZOLE 40MG TAB (PROTONIX) PO SCH (09:21)
[2020-03-01] MEDS: allopurinoL 300 MG TAB PO SCH (09:21)
[2020-03-01] MEDS: amLODIPine 10 MG TAB PO SCH (09:23)
--- NOTE | 2020-03-01 10:25 | IPNPDOC ---
Date Seen The patient was seen on 03/01/20. Progress Note SUBJECTIVE: Patient seen and examined at the bedside. Chart has been reviewed. Patient continues to have a lid lag at the left upper eyelid. She sometimes has red eyes but no drainage. Vision is unchanged. She is feeling better. Creatinine is improving. Dr. luque. No chest pain, pressure, tightness or shortness of breath despite holding her diuretic. She is noticing exertional dyspnea. Last able to sleep with 2 pillows without any discomfort. No nausea, vomiting. Appetite is improved, tolerating her diet. No fever, chills, no cough. OBJECTIVE: PHYSICAL EXAMINATION: VITAL SIGNS: SEE BELOW GENERAL: Speaks in full sentences. No conversational dyspnea. Speech is fluent. Face is symmetric. Patient has lid lag in the left upper eyelid No respiratory distress, cyanosis. Patient has dry mucous membranes with chapped lips. No jugular venous distention (JVD) or thyromegaly. Ptosis of the left eye LUNGS: Diminished with bilateral coarse rhonchi. , Air entry is equal bilaterally . Slight kyphosis HEART: S1, S2, sinus rhythm. Nondisplaced point of maximal impulse. ABDOMEN: Soft, nontender, nondistended. Positive bowel sounds. No costovertebralangle (CVA) tenderness. EXTREMITIES: No cyanosis, clubbing, or pitting edema. LABORATORY DATA: see below IMAGING STUDIES: see chart ASSESSMENT AND PLAN: This is a 74-year-old female recently discharged after being treated for congest luiz heart failure (CHF) exacerbation and pneumonia. Completed a full course of Levaquin as outpatient. Presented to the emergency room with complaints of generalized weakness 2 days after hospital discharge, which has progressed along. She was found to have a white count of 19,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 IMPRESSION: 1. Resolving right lower lobe pneumonia. 2. Acute on chronic renal failure, currently a stage IV 3. Hypertension. 4. Depression 5. Chronic neuropathy 6. Reflux. 7. Restless legs. 8. Congestive heart failure with preserved systolic function, compensated. 9. Unintentional Weight loss with left-sided lid lag. Complains of dysphagia and fatigable mastication, rule out myasthenia gravis. 10. Chronic bronchiectasis 11. Generalized weakness and fatigue PLAN: Continue present management.. We may be able to resume patient's diuretics tomorrow when she is back to her baseline creatinine of 1.4. We will need to monitor her for the next 12 hours to make sure that the creatinine does not worsen or she does not develop florid ingest heart failure. Chest x-ray today has no fluid overload. Her severe pulmonary hypertension. She has chronic fibrosis and improving consolidation. She is continued on Avelox to complete a course due to risk of infection with chronic bronchiectasis. She has been given acapella, as well as incentive spirometry encouraged to ambulate and has passed some safety evaluation. Discharge plans are for Tuesday VS, I&O, 24H, [facility] Vital Signs/I&O Vital Signs Date Time Temp Pulse Resp B/P (MAP) Pulse Ox O2 Delivery O2 Flow Rate FiO2 03/01/20 09:23 73 135/65 03/01/20 06:00 97.3 18 97 Nasal Cannula 2.0 I&O- Last 24 Hours up to 6 AM 03/01/20 06:00 Intake Total 1595 ml Output Total 1200 ml Balance 395 ml Laboratory Data 24H LABS Laboratory Tests 2 02/29/20 11:28: Bedside Glucose (Misc Panel) 85 02/29/20 16:59: Bedside Glucose (Misc Panel) 131H 02/29/20 19:48: Bedside Glucose (Misc Panel) 133H 02/29/20 21:12: Urine Color YELLOW, Urine Appearance HAZY, Urine pH 5.0, Urine Specific [place] 1.017, Urine Protein 2+H, Urine Glucose (UA) NEGATIVE, Urine Ketones NEGATIVE, Urine Blood NEGATIVE, Urine Nitrite NEGATIVE, Urine Bilirubin NEGATIVE, Urine Urobilinogen 0.2, Urine Leukocyte Esterase NEGATIVE, Urine WBC (Auto) 3, Urine RBC (Auto) 1, Urine Hyaline Casts (Auto) 25, Urine Bacteria (Auto) 2+H, Urine Squamous Epithelial Cells 3, Urine Sperm (Auto) 03/01/20 05:45: Nucleated Red Blood Cells % (auto) 0.0, Anion Gap 7L, Glomerular Filtration Rate 32.6L, Calcium Level 9.0 CBC/BMP Laboratory Tests 03/01/20 05:45 Microbiology Microbiology 02/28/20 Gram Stain - Final, Complete 02/28/20 Sputum Culture - Final, Complete Yeast Like Organism 02/27/20 Blood Culture - Preliminary, Resulted No Growth after 48 hours. All Specime... 02/27/20 Blood Culture - Preliminary, Resulted No Growth after 48 hours. All Specime... JENNIFER PONCE MD Mar 01, 2020 10:25
[2020-03-01 14:00] VITALS: BP 142/69
[2020-03-01] MEDS ORDERED: HumaLOG INSULIN (NovoLOG) PER UNIT SC STA (17:48)
[2020-03-01] MEDS: LATANOPROST 0.005% OPHTH SOLN 2.5 ML OU SCH (20:16)
[2020-03-01] MEDS: rOPINIRole 0.25 MG TAB(REQUIP) PO SCH (20:16)
[2020-03-01] MEDS: ROSUVASTATIN 10 MG TAB (CRESTOR) PO SCH (20:16)
[2020-03-01] MEDS: ASPIRIN 81 MG ENTERIC TAB PO SCH (20:16)
[2020-03-01] MEDS: FAMOTIDINE 20 MG TAB PO SCH (20:16)
[2020-03-01 22:00] VITALS: BP 140/66
[2020-03-02] MEDS: ANEXSIA, NORCO 7.5MG/325MG TABLET(HYDROCODONE/APAP) PO PRN ×4 (00:06→22:29)
[2020-03-02] MEDS: MOXIFLOXACIN 400 MG TAB PO SCH (05:55)
[2020-03-02 05:57] LABS: HEMATOCRIT 39.4 % (36.0-47.0); HEMOGLOBIN 12.6 g/dl (12.0-15.5); MEAN CORPUSCULAR HEMOGLOBIN 26.5 pg (27.0-33.0); MEAN CORPUSCULAR VOLUME 82.8 fl (80.0-96.0); PLATELET COUNT, AUTOMATED 175 10^3/uL (150-450); RED BLOOD COUNT 4.76 10^6/uL (4.00-5.40); WHITE BLOOD COUNT 12.7 10^3/uL (4.0-10.0)
[2020-03-02 06:00] VITALS: BP 141/61
[2020-03-02 06:18] LABS: CALCIUM LEVEL 9.1 MG/DL (8.8-10.2); CREATININE FOR GFR 1.46 MG/DL (0.55-1.30); GLOMERULAR FILTRATION RATE 37.3 (>39); POTASSIUM SERUM 3.7 MEQ/L (3.5-5.1)
[2020-03-02] MEDS: PREGABALIN 100 MG CAP (LYRICA) PO SCH ×2 (09:49→20:34)
[2020-03-02] MEDS: DULoxetine 30 MG CAP (CYMBALTA) PO SCH ×2 (09:49→20:34)
[2020-03-02] MEDS: HumuLIN N INSULIN (NovoLIN N) PER UNIT SQ SCH (09:49)
[2020-03-02] MEDS: PANTOPRAZOLE 40MG TAB (PROTONIX) PO SCH (09:49)
[2020-03-02] MEDS: allopurinoL 300 MG TAB PO SCH (09:49)
--- NOTE | 2020-03-02 09:54 | IPNPDOC ---
Date Seen The patient was seen on 03/02/20. Progress Note SUBJECTIVE: Patient was seen and examined at the methotrexate has been reviewed. No conversational dyspnea. No fever or chills. Still occasional cough with white sputum, not thick or purulent. Patient has no nausea, vomiting, fatigue is improved. Patient has passed, home safety evaluation and ready for hospital discharge in the morning. Once patient's diuretics are resumed and creatinine remained stable overnight. No other complaints .agreeable for hospital discharge in the morning OBJECTIVE: PHYSICAL EXAMINATION: VITAL SIGNS: SEE BELOW GENERAL: Speaks in full sentences. No conversational dyspnea. Speech is fluent. Face is symmetric. Patient has lid lag in the left upper eyelid No respiratory distress, cyanosis. Patient has dry mucous membranes with chapped lips. No jugular venous distention (JVD) or thyromegaly. LUNGS: Diminished with bilateral coarse rhonchi. , Air entry is equal bilaterally . Slight kyphosis HEART: S1, S2, sinus rhythm. Nondisplaced point of maximal impulse. ABDOMEN: Soft, nontender, nondistended. Positive bowel sounds. No costovertebralangle (CVA) tenderness. EXTREMITIES: No cyanosis, clubbing, or pitting edema. LABORATORY DATA: see below IMAGING STUDIES: see chart ASSESSMENT AND PLAN: This is a 74-year-old female recently discharged after being treated for congestive heart failure (CHF) exacerbation and pneumonia. Completed a full course of Levaquin as outpatient. Presented to the emergency room with complaints of generalized weakness 2 days after hospital discharge, which has progressed along. She was found to have a white count of 19,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 IMPRESSION: 1. Resolving right lower lobe pneumonia., Resolved 2. Acute on chronic renal failure, stage IV on hospital admission, currently is stage III, resolving 3. Hypertension. 4. Depression 5. Chronic neuropathy 6. Reflux. 7. Restless legs. 8. Congestive heart failure with preserved systolic function, compensated. 9. Unintentional Weight loss with left-sided lid lag. Complains of dysphagia and fatigable mastication, rule out myasthenia gravis. 10. Chronic bronchiectasis 11. Generalized weakness and fatigue PLAN: Patient is clinically improving and has completed a full course of antibiotics from previous hospitalization and will not need outpatient antibiotics. Patient's diuretic will be started today. If stable overnight with no change in her creatinine. She may be discharged home in the morning. Patient has passed a home safety evaluation and maybe released. She appears to be back to her baseline strength myasthenia gravis workup will be discussed by her primary care physician once serologic testing has returned. If negative, no further testing is positive. Her suspicion remains. Patient may be referred to [facility] to do repetitive stimulation testing to confirm myasthenia gravis and proceed with treatment if this is occasionally improved with resection of thymoma. No need for inpatient work up for this. She is not an aspiration risk. Despite complains of dysphagia. VS, I&O, 24H, [facility] Vital Signs/I&O Vital Signs Date Time Temp Pulse Resp B/P (MAP) Pulse Ox O2 Delivery O2 Flow Rate FiO2 03/02/20 06:38 16 03/02/20 06:00 98.4 76 141/61 (87) 97 Nasal Cannula 2.0 I&O- Last 24 Hours up to 6 AM 03/02/20 06:00 Intake Total 1660 ml Output Total 1600 ml Balance 60 ml Laboratory Data 24H LABS Laboratory Tests 2 03/01/20 11:32: Bedside Glucose (Misc Panel) 172H 03/01/20 16:21: Bedside Glucose (Misc Panel) 338H 03/01/20 21:22: Bedside Glucose (Misc Panel) 94 03/02/20 05:33: Nucleated Red Blood Cells % (auto) 0.0, Anion Gap 4L, Glomerular Filtration Rate 37.3L, Calcium Level 9.1 CBC/BMP Laboratory Tests 03/02/20 05:33 Microbiology Microbiology 02/28/20 Gram Stain - Final, Complete 02/28/20 Sputum Culture - Final, Complete Yeast Like Organism 02/27/20 Blood Culture - Preliminary, Resulted No Growth after 72 hours. All specime... 02/27/20 Blood Culture - Preliminary, Resulted No Growth after 72 hours. All specime... JENNIFER PONCE MD Mar 02, 2020 09:54
[2020-03-02] MEDS: amLODIPine 10 MG TAB PO SCH (09:58)
[2020-03-02 14:00] VITALS: BP 143/78
[2020-03-02] MEDS: OLOPATADINE 0.1% OPHTH SOL 5ML(PATANOL) OS SCH (16:31)
[2020-03-02] MEDS: POLYVINYL ALCOHOL OPHTH SOLN 15 ML(LIQUITEARS) OS SCH ×2 (16:31→20:34)
[2020-03-02] MEDS: ROSUVASTATIN 10 MG TAB (CRESTOR) PO SCH (20:33)
[2020-03-02] MEDS: LATANOPROST 0.005% OPHTH SOLN 2.5 ML OU SCH (20:34)
[2020-03-02] MEDS: rOPINIRole 0.25 MG TAB(REQUIP) PO SCH (20:34)
[2020-03-02] MEDS: ASPIRIN 81 MG ENTERIC TAB PO SCH (20:34)
[2020-03-02] MEDS: FAMOTIDINE 20 MG TAB PO SCH (20:34)
[2020-03-02 22:00] VITALS: BP 144/70
[2020-03-03] MEDS: ANEXSIA, NORCO 7.5MG/325MG TABLET(HYDROCODONE/APAP) PO PRN (04:52)
[2020-03-03 05:57] LABS: HEMOGLOBIN 11.6 g/dl (12.0-15.5); MEAN CORPUSCULAR HEMOGLOBIN 26.1 pg (27.0-33.0); MEAN CORPUSCULAR HGB CONC 31.4 g/dl (32.0-36.5); MEAN CORPUSCULAR VOLUME 83.3 fl (80.0-96.0); PLATELET COUNT, AUTOMATED 163 10^3/uL (150-450); RED BLOOD COUNT 4.44 10^6/uL (4.00-5.40); WHITE BLOOD COUNT 10.9 10^3/uL (4.0-10.0)
[2020-03-03 06:00] VITALS: BP 151/70
[2020-03-03] MEDS: MOXIFLOXACIN 400 MG TAB PO SCH (06:14)
[2020-03-03 06:21] LABS: CALCIUM LEVEL 8.2 MG/DL (8.8-10.2); CREATININE FOR GFR 1.3 MG/DL (0.55-1.30); GLOMERULAR FILTRATION RATE 42.6 (>39); POTASSIUM SERUM 3.8 MEQ/L (3.5-5.1)
[2020-03-03] MEDS ORDERED: OLOP0.1D OS (08:07)
[2020-03-03] MEDS ORDERED: POLYOPD OS (08:07)
[2020-03-03] MEDS: OLOPATADINE 0.1% OPHTH SOL 5ML(PATANOL) OS SCH (08:59)
[2020-03-03] MEDS: HumuLIN N INSULIN (NovoLIN N) PER UNIT SQ SCH (09:00)
[2020-03-03] MEDS: PREGABALIN 100 MG CAP (LYRICA) PO SCH (09:00)
[2020-03-03] MEDS: DULoxetine 30 MG CAP (CYMBALTA) PO SCH (09:00)
[2020-03-03] MEDS: CALCITRIOL 0.25 MCG CAP (S0169) PO SCH (09:00)
[2020-03-03] MEDS: PANTOPRAZOLE 40MG TAB (PROTONIX) PO SCH (09:01)
[2020-03-03] MEDS: allopurinoL 300 MG TAB PO SCH (09:01)
[2020-03-03 09:03] VITALS: BP 178/68
[2020-03-03] MEDS: amLODIPine 10 MG TAB PO SCH (09:03)
[2020-03-03] MEDS: POLYVINYL ALCOHOL OPHTH SOLN 15 ML(LIQUITEARS) OS SCH (09:12)
--- NOTE | 2020-03-03 12:31 | DS.PDOC ---
Discharge Summary General Date of Admission Feb 27, 2020 at 17:10 Date of Discharge 03/03/20 Discharge Summary DISCHARGE DIAGNOSES: 1. Resolving right lower lobe pneumonia. 2. Acute on chronic renal failure, presented with stage IV, resolved back to stage III at hospital discharge. 3. Hypertension. 4. Depression 5. Chronic neuropathy 6. Reflux. 7. Restless legs. 8. Congestive heart failure with preserved systolic function, compensated. 9. Unintentional Weight loss with left-sided lid lag. Complains of dysphagia and fatigable mastication, rule out myasthenia gravis. 10. Chronic bronchiectasis 11. Generalized weakness and fatigue DISCHARGE MEDICATIONS: SEE BELOW DISCHARGE INSTRUCTIONS: Patient is to see her primary care physician within 5 days of discharge. Anterior for her to neurology. Patient's neurologic symptoms do not resolve. PCP to discuss findings of serologic testing from myasthenia gravis workup. If persistent dysphagia occur. 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 Elder', without changes in meds presents now with worsening weakness 2 days after hospital discharge. She denies any sob, fever, chills, cough, or sputum production, n/v/d/abd pain, dysuria, urgency, frequency, flank pain, diarrhea, headache, sore throat, changes in vision, hearing, polyphagia, polydipsia, and only admits to unintentional weight loss in the past 1 year from 200lbs when she first moved in with her daughter to 148 lbs now. She denies any diplopia, ptosis, fatigable chewing, feeling that her head is heavy, dysarthria, but has had episodes of dysphagia. Pt c/o feeling tired all the time and wanting to take a nap. She has chronic back pain and leg pain which are alleviated by her q4-6hrs hydrocodone. 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 Troponin was negative. wbc 19 from discharge of 13, but pt has been on prednisone. HOSPITAL COURSE: Due to leukocytosis with wbc 19, patient was started on iv ceftriaxone and doxycycline to cover typical gram negative and atypical bacteria, sputum, blood cultures were negative. Patient was kept on albuterol and supplemental oxygen, to keep o2 sat 88-92%. Her home meds for chf were resumed as she appears euvolemic. CT chest showed bronchiectasis resolving consolidation and possible thymoma versus thymic hyperplasia. Pt presents with B symptoms, and a mediastinal mass, but no significant LAD to suspect lymphoma. Due to worsening weakness and possible thymoma, may benefit from neurology referral for myasthenia gravis at some point for repetitive nerve stimulation test as outpatient . We have done serologic workup to rule out myasthenia gravis including Binding, blocking, and modulating Acetylcholinesterase receptor antibodies, and if negative muSK ab, or anti-striated muscle antibody if available. Due to worsening creatinine. Patient's diuretics were held and kidney function returned back to baseline with a creatinine 1.3. Her antibiotics were de-escalated to Avelox with no resultant cough, fever or chills. She completed a full course of antibiotics with no antibiotics prescribed at hospital discharge. Patient had no signs of aspiration and diet was not changed. DISCHARGE PHYSICAL EXAMINATION: VITAL SIGNS: SEE BELOW GENERAL: Speaks in full sentences. No conversational dyspnea. Speech is fluent. Face is symmetric. Patient has lid lag in the left upper eyelid No respiratory distress, cyanosis. Patient has dry mucous membranes with chapped lips. No jugular venous distention (JVD) or thyromegaly. Ptosis of the left eye LUNGS: Diminished with bilateral coarse rhonchi. , Air entry is equal bilaterally . Slight kyphosis HEART: S1, S2, sinus rhythm. Nondisplaced point of maximal impulse. ABDOMEN: Soft, nontender, nondistended. Positive bowel sounds. No costovertebralangle (CVA) tenderness. EXTREMITIES: No cyanosis, clubbing, or pitting edema. DISCHARGE LABORATORY DATA: see below IMAGING STUDIES: PROCEDURE INFORMATION: Exam: CT Chest Without Contrast Exam date and time: 02/27/2020 4:09 PM Age: 74 years old Clinical indication: Other: Persistent rll infiltrate TECHNIQUE: Imaging protocol: Computed tomography of the chest without contrast. 3D rendering (Not supervised by radiologist): MIP and/or 3D reconstructed images were created by the technologist. Radiation optimization: All CT scans at this facility use at least one of these dose optimization techniques: automated exposure control; mA and/or kV adjustment per patient size (includes targeted exams where dose is matched to clinical indication); or iterative reconstruction. COMPARISON: CT ANGIO CHEST 02/10/2020 7:31 PM FINDINGS: Lungs: There are multiple lung findings suggestive of underlying pulmonary fibrotic lung disease with tiny areas of peripheral honeycombing in both lower lobes, patchy areas of ground-glass density in the inferior lingula and anterior right upper lobes, as well as pleural thickening and bronchiolectasis with associated airspace consolidation in the medial right middle lobe seen on images 49 through 63 of series 202. Pleural space: Unremarkable. No pneumothorax. No pleural effusion. Heart: The heart size is normal. Severe coronary artery calcification is present however. Mediastinal space: There is a soft tissue mass present in the lateral left side upper mediastinum on image 20 of series 202, image 74 of series 205 and image 53 of series 203. This measures 4.6 x 2.5 cm transversely and approximately 3.7 cm craniocaudally. The mass lies immediately posterior to the proximal left subclavian artery but appears separate from the artery on images 71 through 78 of series 205. The differential diagnosis includes thymic hyperplasia/thymoma, lymphoma, with a medial left upper lobe lung mass or pleural mass less likely. Pulmonary arteries: The main pulmonary artery trunk is markedly enlarged measuring 4.5 cm transversely on image 43 of series 202 suggestive of underlying central pulmonary arterial hypertension. Aorta: No CT evidence of thoracic aortic aneurysm or acute intramural thoracic aortic hematoma. Lymph nodes: Small shotty lymph nodes are present in the mediastinum. Gallbladder and bile ducts: Prior cholecystectomy. Bones/joints: Moderate chronic degenerative vertebral body endplate osteophytic disease is seen in the mid to lower thoracic spine. Soft tissues: Unremarkable. IMPRESSION: 1. There is a soft tissue mass present in the lateral left side upper mediastinum on image 20 of series 202, image 74 of series 205 and image 53 of series 203. This measures 4.6 x 2.5 cm transversely and approximately 3.7 cm craniocaudally. The mass lies immediately posterior to the proximal left subclavian artery but appears separate from the artery on images 71 through 78 of series 205. The differential diagnosis includes thymic hyperplasia/thymoma, lymphoma, with a medial left upper lobe lung mass or pleural mass less likely. 2. The main pulmonary artery trunk is markedly enlarged measuring 4.5 cm transversely on image 43 of series 202 suggestive of underlying central pulmonary arterial hypertension. 3. No CT evidence of thoracic aortic aneurysm or acute intramural thoracic aortic hematoma. 4. The heart size is normal. Severe coronary artery calcification is present however. 5. There are multiple lung findings suggestive of underlying pulmonary fibrotic lung disease with tiny areas of peripheral honeycombing in both lower lobes, patchy areas of ground-glass density in the inferior lingula and anterior right upper lobes, as well as pleural thickening and bronchiolectasis with associated airspace consolidation in the medial right middle lobe seen on images 49 through 63 of series 202. 6. Small shotty lymph nodes are present in the mediastinum. 7. Moderate chronic degenerative vertebral body endplate osteophytic disease is seen in the mid to lower thoracic spine. 8. Prior cholecystectomy. Electronically signed by: Angela Ha On 02/27/2020 16:52:29 PM DD: ANGELA HA MD 02/27/20 1609 DT: QUENTIN 02/27/20 1652 DS: AALIYAH 02/27/20 1652 TIME SPENT ON DISCHARGE 30 MINUTES Vital Signs/I&Os Vital Signs Date Time Temp Pulse Resp B/P (MAP) Pulse Ox O2 Delivery O2 Flow Rate FiO2 03/03/20 09:41 2.0 03/03/20 09:03 178/68 03/03/20 06:00 98.5 77 18 98 Nasal Cannula I&O- Last 24 Hours up to 6 AM 03/03/20 06:00 Intake Total 720 ml Output Total 850 ml Balance -130 ml Laboratory Data Labs 24H Laboratory Tests 2 03/02/20 16:26: Bedside Glucose (Misc Panel) 235H 03/02/20 19:33: Bedside Glucose (Misc Panel) 179H 03/03/20 05:25: Nucleated Red Blood Cells % (auto) 0.0, Anion Gap 5L, Glomerular Filtration Rate 42.6, Calcium Level 8.2L 03/03/20 11:48: Bedside Glucose (Misc Panel) 166H CBC/BMP Laboratory Tests 03/03/20 05:25 FSBS Laboratory Tests Test 03/02/20 16:26 03/02/20 19:33 03/03/20 11:48 Range/Units Bedside Glucose (Misc Panel) 235 179 166 83-110 MG/DL Microbiology Microbiology 02/28/20 Gram Stain - Final, Complete 02/28/20 Sputum Culture - Final, Complete Yeast Like Organism 02/27/20 Blood Culture - Preliminary, Resulted No Growth after 72 hours. All specime... 02/27/20 Blood Culture - Preliminary, Resulted No Growth after 72 hours. All specime... Discharge Medications Scheduled Allopurinol (Zyloprim) 300 Mg Tab, 300 MG PO DAILY, (Reported) Amlodipine Besylate (Amlodipine Besylate) 10 Mg Tablet, 10 MG PO DAILY, (Reported) Aspirin (Aspir 81) 81 Mg Tablet.dr, 81 MG PO QHS, (Reported) Calcitriol (Calcitriol) 0.25 Mcg Cap, 0.25 MCG PO 5XW, (Reported) TUE-TUE Cholecalciferol (Vitamin D3) (Vitamin D3) 125 Mcg Capsule, 5,000 MCG PO DAILY, (Reported) Duloxetine Hcl (Duloxetine HCl) 60 Mg Cap, 60 MG PO BID, (Reported) Esomeprazole Magnesium (Nexium) 40 Mg Capsule.dr, 40 MG PO DAILY, (Reported) Famotidine (Famotidine) 20 Mg Tablet, 20 MG PO QHS, (Reported) Insulin NPH Human Isophane (Humulin N Kwikpen) 100 Unit/1 Ml Insuln.pen, 75 UNITS SQ QAM, (Reported) Latanoprost (Xalatan) 0.005% 2.5ML Drops, 1 DROP OU QHS, (Reported) Melatonin (Melatonin) 5 Mg Tablet, 5 MG PO QHS, (Reported) Metolazone (Metolazone) 2.5 Mg Tablet, 2.5 MG PO 3XW, (Reported) TUE/TUE/TUE Olopatadine HCl (Olopatadine HCl) 0.1% 5ML Drops, 1 DROP OS BID@09,17 Polyvinyl Alcohol (Artificial Tears) 15 Ml Drops, 2 DROP OS QID Prednisone (Prednisone) 10 Mg Tab, 10 MG PO DAILY, (Reported) Pregabalin (Lyrica) 200 Mg Cap, 200 MG PO BID, (Reported) Ropinirole HCl (Requip) 0.25 Mg Tablet, 0.5 MG PO QHS, (Reported) Rosuvastatin Calcium (Crestor) 20 Mg Tab, 20 MG PO QHS, (Reported) Spironolactone (Spironolactone) 25 Mg Tab, 25 MG PO BID, (Reported) Torsemide (Torsemide) 20 Mg Tablet, 40 MG PO BID, (Reported) TAKES AM/1600 Umeclidinium [place] (Incruse Ellipta) 62.5 Mcg Blst.w.dev, 1 PUFF INH DAILY, (Reported) Scheduled PRN Albuterol Sulf (Albuterol Sulfate) 2.5 Mg/3 Ml Vial.neb, 2.5 MG INH Q4H PRN for SHORTNESS OF BREATH, (Reported) Albuterol Sulfate (Ventolin Hfa) 108 Mcg/Act Aer, 2 PUFFS INH Q4H PRN for SHORTNESS OF BREATH, (Reported) Hydrocodone/Acetaminophen (Hydrocodone-Acetamin 10-325 mg) 1 Tab Tab, 1 TAB PO Q6H PRN for PAIN, (Reported) Nitroglycerin (Nitrostat) 0.4 Mg Subl, 0.4 MG SL NITRO PRN for CHEST PAIN, (Reported) Nystatin (Nyamyc) 15 Gm Powder, 1 DOSE TOP BID PRN for REDNESS/IRRITATION, (Reported) APPLY TO UNDER BREASTS AND GROIN Allergies Coded Allergies: TAPE (Verified Allergy, Unknown, 12/13/18) JENNIFER PONCE MD Mar 03, 2020 12:26
[2020-03-06 12:12] LABS: ACETYLCHOLINE RCPTOR BINDING A < 0.03 nmol/L (0.00-0.24); ACETYLCHOLINE RCPTOR BLOCK AB 25 % (0-25); ACETYLCHOLINE RCPTOR MODULATIN <12 % (0-20); ANTINUCLEAR ANTIBODIES DIRECT Negative (Negative); STRIATIONAL ANTIBODIES Negative (Neg:<1:40)
== END 2020-03-03 12:15 | disposition home or self-care (01) | DRG 391 ==
LOC: EDBD 13:50 → M ED 13:50 → M ED INP 17:10 → ENRESERV 19:37 → M MSPAV 20:22
PROVIDERS: ADMIT General Practice; ATTEND General Practice
DX: R13.10 Dysphagia, unspecified (principal); J18.9 Pneumonia, unspecified organism; J44.0 Chronic obstructive pulmonary disease with (acute) lower respiratory infection; I50.32 Chronic diastolic (congestive) heart failure; J96.11 Chronic respiratory failure with hypoxia; J96.12 Chronic respiratory failure with hypercapnia; N18.4 Chronic kidney disease, stage 4 (severe); I13.0 Hypertensive heart and chronic kidney disease with heart failure and stage 1 through stage 4 chronic kidney disease, or unspecified chronic kidney disease; N17.9 Acute kidney failure, unspecified; M10.9 Gout, unspecified; I25.10 Atherosclerotic heart disease of native coronary artery without angina pectoris; F32.9 Major depressive disorder, single episode, unspecified; K21.9 Gastro-esophageal reflux disease without esophagitis; E11.40 Type 2 diabetes mellitus with diabetic neuropathy, unspecified; H40.9 Unspecified glaucoma; R53.1 Weakness; G47.00 Insomnia, unspecified; R53.83 Other fatigue; G25.81 Restless legs syndrome; E78.5 Hyperlipidemia, unspecified; F17.200 Nicotine dependence, unspecified, uncomplicated; G70.00 Myasthenia gravis without (acute) exacerbation; R62.7 Adult failure to thrive; R63.4 Abnormal weight loss; E11.22 Type 2 diabetes mellitus with diabetic chronic kidney disease; J84.10 Pulmonary fibrosis, unspecified; Z99.81 Dependence on supplemental oxygen; Z79.82 Long term (current) use of aspirin; Z98.41 Cataract extraction status, right eye; Z90.49 Acquired absence of other specified parts of digestive tract; Z79.52 Long term (current) use of systemic steroids; Z79.899 Other long term (current) drug therapy; Z91.048 Other nonmedicinal substance allergy status; Z20.828 Contact with and (suspected) exposure to other viral communicable diseases

== ENCOUNTER 2020-03-05 11:39 | Inpatient (IN) | payer MEDICARE, MEDICAID ==
[~2020-03-05] VITALS: Ht 157.5 cm; Wt 67.2 kg
[~2020-03-05 11:39] MED LIST changes: +ASPI81TA86 PO; +D3 U5000 PO; +FAMO20TA PO; +OLOP0.1D OS; +POLYOPD OS
[2020-03-05 12:25] LABS: BASO # 0.1 10^3/uL (0.0-0.2); BASO % 0.3 % (0.0-1.0); EOS # 0.1 10^3/uL (0.0-0.5); EOS % 0.3 % (0.0-3.0); HEMATOCRIT 43.7 % (36.0-47.0); HEMOGLOBIN 14.1 g/dl (12.0-15.5); LYMPH # 1.4 10^3/uL (1.5-5.0); LYMPH % 7.3 % (24.0-44.0); MEAN CORPUSCULAR HEMOGLOBIN 26.8 pg (27.0-33.0); MEAN CORPUSCULAR HGB CONC 32.3 g/dl (32.0-36.5); MEAN CORPUSCULAR VOLUME 83.1 fl (80.0-96.0); MONO % 5.1 % (0.0-5.0); NEUTROPHILS # 16.1 10^3/uL (1.5-8.5); NEUTROPHILS % 86.6 % (36.0-66.0); PLATELET COUNT, AUTOMATED 185 10^3/uL (150-450); RED BLOOD COUNT 5.26 10^6/uL (4.00-5.40); WHITE BLOOD COUNT 18.6 10^3/uL (4.0-10.0)
[2020-03-05 12:29] LABS: INR 0.97; PROTHROMBIN TIME 13.1 SECONDS (12.5-14.3)
[2020-03-05 12:30] LABS: PARTIAL THROMBOPLASTIN TIME 36.2 SECONDS (24.2-38.5)
[2020-03-05 12:44] LABS: ALBUMIN 2.9 GM/DL (3.2-5.2); ALT/SGPT 25 U/L (12-78); BILIRUBIN,DIRECT 0.1 MG/DL (0.0-0.2); BILIRUBIN,TOTAL 0.3 MG/DL (0.2-1.0); BLOOD UREA NITROGEN 34 MG/DL (7-18); CALCIUM LEVEL 9.5 MG/DL (8.8-10.2); CARBON DIOXIDE LEVEL 31 MEQ/L (21-32); CHLORIDE LEVEL 98 MEQ/L (98-107); CK-MB VALUE MASS 2.9 NG/ML (<3.6); CPK CREATINE PHOSPHOKINASE 108 U/L (26-192); CREATININE FOR GFR 1.45 MG/DL (0.55-1.30); GLOMERULAR FILTRATION RATE 37.6 (>39); GLUCOSE, FASTING 186 MG/DL (70-100); LIPASE 53 U/L (73-393); MB/CK RELATIVE INDEX 2.69 (< OR =4); POTASSIUM SERUM 4.2 MEQ/L (3.5-5.1); SODIUM LEVEL 134 MEQ/L (136-145); TOTAL PROTEIN 7.7 GM/DL (6.4-8.2); TROPONIN I < 0.02 NG/ML (< 0.10)
[2020-03-05] MEDS ORDERED: ISOVUE-370 76% 100ML VIAL As Ordered ONE (12:58)
[2020-03-05 13:46] LABS: NT-PRO BNP 4879 PG/ML (<125)
--- NOTE | 2020-03-05 13:46 | REPVR ---
PROCEDURE INFORMATION: Exam: CT Abdomen And Pelvis With Contrast Exam date and time: 03/05/2020 1:14 PM Age: 74 years old Clinical indication: Abdominal pain TECHNIQUE: Imaging protocol: Computed tomography of the abdomen and pelvis with intravenous contrast. Radiation optimization: All CT scans at this facility use at least one of these dose optimization techniques: automated exposure control; mA and/or kV adjustment per patient size (includes targeted exams where dose is matched to clinical indication); or iterative reconstruction. Contrast material: ISO 370; Contrast volume: 100 ml; Contrast route: INTRAVENOUS (IV); COMPARISON: CT ABD/PEL W/IV CONTRAST ONLY 08/06/2019 6:34 PM FINDINGS: Lungs: Complete consolidation of the imaged portion of the right middle lobe. Interstitial scarring in the lung bases. Heart: Cardiomegaly. Liver: Normal. No mass. Gallbladder and bile ducts: There has been a cholecystectomy. Unchanged mild diffuse intrahepatic ductal dilatation. Unchanged mild prominence of the extrahepatic duct. Findings most likely reflect dynamic changes following cholecystectomy. Pancreas: Normal. No ductal dilation. Spleen: Normal. No splenomegaly. Adrenals: Normal. No mass. Kidneys and ureters: Mild bilateral renal cortical scarring. 10 mm simple right renal cortical cyst. Subcentimeter bilateral renal cortical hypodensities are too small to definitively characterize, but likely represent cysts. Stomach and bowel: Copious amount of retained colonic fecal material. No evidence of bowel obstruction. Colonic diverticulosis. No evidence of acute diverticulitis. Apparent mild circumferential wall thickening of the cecum and the proximal ascending colon. Apparent mild circumferential wall thickening of the proximal transverse colon. Apparent colonic wall thickening may be secondary to nondistention. Appendix: No evidence of appendicitis. Intraperitoneal space: Unremarkable. No free air. No significant fluid collection. Vasculature: Advanced atherosclerotic changes. Lymph nodes: Unremarkable. No enlarged lymph nodes. Urinary bladder: Unremarkable as visualized. Reproductive: The patient appears to be status post hysterectomy. Bones/joints: Degenerative change of the spine. Postsurgical change of the spine. Mild degenerative change of the pubic symphysis. Mild bilateral hip joint DJD. Soft tissues: Left inguinal surgical clips. IMPRESSION: 1. Question of mild regional colitis, which may be artifactual. 2. Copious amount of retained colonic fecal material. Correlate for constipation. 3. Colonic diverticulosis. 4. Complete consolidation of the imaged portion of the right middle lobe, suggestive of pneumonia. 5. Additional nonacute findings, as above. COMMENTS: Consistent with the [employer]'s Incidental Findings Committee white paper (J Am Namita Radiol 2018): Any incidental renal lesion less than 1 cm or classified as too small to characterize, or any incidental cystic renal lesion characterized as simple-appearing, is likely benign. No follow-up imaging is recommended for these lesions per consensus recommendations based on imaging criteria. Electronically signed by: Shi Loo On 03/05/2020 13:46:15 PM
--- NOTE | 2020-03-05 13:49 | REPVR ---
PROCEDURE INFORMATION: Exam: XR Chest, 1 View Exam date and time: 03/05/2020 1:32 PM Age: 74 years old Clinical indication: Shortness of breath; Additional info: Chf TECHNIQUE: Imaging protocol: XR of the chest Views: 1 view. COMPARISON: CR PORTABLE CHEST X-RAY 03/01/2020 8:05 AM FINDINGS: Lungs: Consolidation in the right lung base, significantly progressed since prior. Interstitial scarring in both lungs. Pleural space: Unremarkable. No pleural effusion. No pneumothorax. Heart/Mediastinum: Prominence of the cardiac silhouette. Vasculature: Calcification of the thoracic aorta. Bones/joints: Degenerative change of the spine. IMPRESSION: Right-sided pneumonia, significantly progressed since prior. Electronically signed by: Shi Loo On 03/05/2020 13:48:53 PM
[2020-03-05] MEDS ORDERED: PIPERACILLIN/TAZOBACTAM SOD 3.375 GM in D5W MINI-BAG PLUS 50 ML IV ONE (14:45)
[2020-03-05] MEDS ORDERED: PIPERACILLIN/TAZOBACTAM SOD 4.5 GM in D5W MINI-BAG PLUS 100 ML IV SCH (15:15)
[2020-03-05] MEDS ORDERED: ACETAMINOPHEN TAB 650MG DOSE (2X325MG) PO PRN (15:15)
[2020-03-05] MEDS ORDERED: OLOP0.1D OS (15:25)
[2020-03-05] MEDS ORDERED: POLYOPD OU (15:25)
--- NOTE | 2020-03-05 15:53 | HPEPDOC ---
General Date of Admission Mar 05, 2020 at 15:13 Date of Service: Mar 05, 2020 Chief Complaint The patient is a 74-year-old female admitted with a reason for visit of Acute And Chronic Resp Failure,Pneumonia. Source: Patient Exam Limitations: No limitations Timing/Duration: Day(s) Severity: Moderate Associated Symptoms: Shortness of breath History of Present Illness Patient 74 years old female with past medical history of COPD on 2 L home O2, active smoker, HFpEF, CAD, HTN, DM, RLS, gout presented to the ER with complaints of worsening SOB. Patient stated that for past few days she has been having increased shortness of breath associated with increased cough and yellowish to brownish sputum production. Also patient complains on the diffuse abdominal pain. Patient stated that she had large bowel movement in the morning, denies any blood or black stool. Patient denies any fever or chills. In ER patient was found to have leukocytosis of 18, lactic acid of 2.1, BNP elevated to 4800. Chest x-ray showed Consolidation in the right lung base, significantly progressed since prior Home Medications Scheduled Allopurinol (Zyloprim) 300 Mg Tab, 300 MG PO DAILY, (Reported) Amlodipine Besylate (Amlodipine Besylate) 10 Mg Tablet, 10 MG PO DAILY, (Reported) Aspirin (Aspir 81) 81 Mg Tablet.dr, 81 MG PO QHS, (Reported) Calcitriol (Calcitriol) 0.25 Mcg Cap, 0.25 MCG PO 5XW, (Reported) TUE-TUE Cholecalciferol (Vitamin D3) (Vitamin D3) 125 Mcg Capsule, 5,000 MCG PO DAILY, (Reported) Duloxetine Hcl (Duloxetine HCl) 60 Mg Cap, 60 MG PO BID, (Reported) Esomeprazole Magnesium (Nexium) 40 Mg Capsule.dr, 40 MG PO DAILY, (Reported) Famotidine (Famotidine) 20 Mg Tablet, 20 MG PO QHS, (Reported) Insulin NPH Human Isophane (Humulin N Kwikpen) 100 Unit/1 Ml Insuln.pen, 75 UNITS SQ QAM, (Reported) Latanoprost (Xalatan) 0.005% 2.5ML Drops, 1 DROP OU QHS, (Reported) Melatonin (Melatonin) 5 Mg Tablet, 10 MG PO QHS, (Reported) Metolazone (Metolazone) 2.5 Mg Tablet, 2.5 MG PO 3XW, (Reported) TUE/TUE/TUE Olopatadine HCl (Olopatadine HCl) 0.1% 5ML Drops, 1 DROP OS BID, (Reported) Prednisone (Prednisone) 10 Mg Tab, 10 MG PO DAILY, (Reported) Pregabalin (Lyrica) 200 Mg Cap, 200 MG PO BID, (Reported) Ropinirole HCl (Requip) 0.25 Mg Tablet, 0.5 MG PO QHS, (Reported) Rosuvastatin Calcium (Crestor) 20 Mg Tab, 20 MG PO QHS, (Reported) Spironolactone (Spironolactone) 25 Mg Tab, 25 MG PO BID, (Reported) Torsemide (Torsemide) 20 Mg Tablet, 40 MG PO BID, (Reported) TAKES AM/1600 Umeclidinium [place] (Incruse Ellipta) 62.5 Mcg Blst.w.dev, 1 PUFF INH DAILY, (Reported) Scheduled PRN Albuterol Sulf (Albuterol Sulfate) 2.5 Mg/3 Ml Vial.neb, 2.5 MG INH Q4H PRN for SHORTNESS OF BREATH, (Reported) Albuterol Sulfate (Ventolin Hfa) 108 Mcg/Act Aer, 2 PUFFS INH Q4H PRN for SHORTNESS OF BREATH, (Reported) Hydrocodone/Acetaminophen (Hydrocodone-Acetamin 10-325 mg) 1 Tab Tab, 1 TAB PO Q6H PRN for PAIN, (Reported) Nitroglycerin (Nitrostat) 0.4 Mg Subl, 0.4 MG SL NITRO PRN for CHEST PAIN, (Reported) Nystatin (Nyamyc) 15 Gm Powder, 1 DOSE TOP BID PRN for REDNESS/IRRITATION, (Reported) APPLY TO UNDER BREASTS AND GROIN Polyvinyl Alcohol (Artificial Tears) 15 Ml Drops, 1 DROP OU QID PRN for DRY EYES, (Reported) Allergies Coded Allergies: TAPE (Verified Allergy, Unknown, 12/13/18) Past Medical History Medical History 1. Emphysematous COPD, steroid and 2L o2 dependent 2. Gout 3. HTN 4. CAD 5. Dry eye 6. Depression 7. CHF, diastolic, EF 65% 8. GERD 9. DM 10. Diabetic neuropathy 11. CBP 12. Glaucoma 13. Insomnia 14. RLS 15. DLP 16. Chronic Hypoxic respiratory Failure on 2liters home oxygen 17. Chronic hypercapnic respiratory Failure 18. Active tobacco smoker Surgical History 1. Left knee joint debridement 2. B/L blepharoplasty 3. Right distal claviculectomy, acromioplasty, bursectomy 4. Cholecystecotmy 5. SHAYLA with B/L OOP 6. EGD 7. Colonoscopy 8. Trigger point injections 9. Multiple back steroid injections 10. Right cataract 11. L3-4 laminectomy and decompression 12. Right breast lesion excision 13. Bronchoscopy Family History Father: , 49, CHF Mother: , 72, CHF Siblings - Sister: Alive, 72 - Brothers: x2, alive, 63, 90 - Sister: , 60s, liver cancer - Sister: , 63, pulmonary HTN, COPD, DM - Brother: , 56, [place] - Brother: , 78, CHF Social History * Smoker: current smoker Alcohol: Denies Drugs: denies A-FIB/CHADSVASC A-FIB History Current/History of A-Fib/PAF?: No Current PO Anticoag Therapy: No Review of Systems Constitutional: Reports: Malaise; Denies: Chills, Fever Eyes: Denies: Pain ENT: Denies: Head Aches Skin: Denies: Rash, Lesions Pulmonary: Reports: Dyspnea, Cough Cardiovascular: Denies: Chest Pain, Palpitations Gastrointestinal: Reports: Abdominal Pain; Denies: Nausea, Vomiting Genitourinary: Denies: Dysuria Hematologic: Denies: Bruising Endocrine: Denies: Polydipsia, Polyphagia Musculoskeletal: Denies: Neck Pain, Back Pain Neurological: Denies: Weakness Psych: Reports: Mood Normal Physical Examination General Exam: Positive: Alert, Cooperative Eye Exam: Positive: PERRLA ENT Exam: Positive: Atraumatic Neck Exam: Positive: Supple, JVD Chest Exam: Positive: Diminished Heart Exam: Positive: Rate Normal Telemetry: Positive: No significant arrhythmia Abdomen Exam: Positive: Normal bowel sounds Extremity Exam: Negative: Cyanosis, Edema Skin Exam: Positive: Nl turgor and temperature Neuro Exam: Positive: Strength at 5/5 X4 ext, Cranial Nerves 3-12 NL Psych Exam: Positive: Mental status NL Vital Signs Vital Signs Date Time Temp Pulse Resp B/P (MAP) Pulse Ox O2 Delivery O2 Flow Rate FiO2 03/05/20 11:57 97.3 81 18 163/77 (105) 95 Nasal Cannula 2.0 Laboratory Data Labs 24H Laboratory Tests 2 03/05/20 11:58: Immature Granulocyte % (Auto) 0.4, Neutrophils (%) (Auto) 86.6H, Lymphocytes (%) (Auto) 7.3L, Monocytes (%) (Auto) 5.1H, Eosinophils (%) (Auto) 0.3, Basophils (%) (Auto) 0.3, Neutrophils # (Auto) 16.1H, Lymphocytes # (Auto) 1.4L, Monocytes # (Auto) 1.0H, Eosinophils # (Auto) 0.1, Basophils # (Auto) 0.1, Nucleated Red Blood Cells % (auto) 0.0, Prothrombin Time 13.1, Prothromb Time International Ratio 0.97, Activated Partial Thromboplast Time 36.2, Anion Gap 5L, Glomerular Filtration Rate 37.6L, Lactic Acid Level 2.1*H, Calcium Level 9.5#, Total Bilirubin 0.3, Direct Bilirubin 0.1, Aspartate Amino Transf (AST/SGOT) 19, Alanine Aminotransferase (ALT/SGPT) 25, Alkaline Phosphatase 85, Total Creatine Kinase 108, Creatine Kinase MB 2.9, Creatine Kinase MB Relative Index 2.69, Troponin I < 0.02, MD-Zli-O-Type Natriuretic Peptide 4879H, Total Protein 7.7, Albumin 2.9L, Albumin/Globulin Ratio 0.6L, Lipase 53L 03/05/20 15:17: CBC/BMP Laboratory Tests 03/05/20 11:58 Microbiology Microbiology 03/05/20 Blood Culture, Received Pending 03/05/20 Blood Culture, Received Pending Assessment/Plan Patient 74 years old female with past medical history of COPD on 2 L home O2, active smoker, HFpEF, CAD, HTN, DM, RLS, gout presented to the ER with complaints of worsening SOB. Patient stated that for past few days she has been having increased shortness of breath associated with increased cough and yellowish to brownish sputum production. Also patient complains on the diffuse abdominal pain. Patient stated that she had large bowel movement in the morning, denies any blood or black stool. Patient denies any fever or chills. In ER patient was found to have leukocytosis of 18, lactic acid of 2.1. Chest x-ray showed Consolidation in the right lung base, significantly progressed since prior Problems (1) Pneumonia Status: Acute Problem Text: Chest x-ray showed right middle lobe pneumonia increased in size compared to the previous one Patient was recently hospitalized, there is concern for HCAP versus postobstructive pneumonia secondary to malignancy Zosyn IV, azithromycin IV Incentive spirometry will repeat CT chest On 02/27/2020 CT was done and showed There is a soft tissue mass present in the lateral left side upper mediastinum on image 20 of series 202, image 74 of series 205 and image 53 of series 203. This measures 4.6 x 2.5 cm transversely and approximately 3.7 cm craniocaudally. The mass lies immediately posterior to the proximal left subclavian artery but appears separate from the artery on images 71 through 78 of series 205. The differential diagnosis includes thymic hyperplasia/thymoma, lymphoma, with a medial left upper lobe lung mass or pleural mass less likely I did not find labs related to myasthenia gravis workup I will repeat anti Ach receptor Ab test Appreciate/agree with drafter (cad) electrical consult (2) Chronic kidney disease Status: Chronic Problem Text: Stage III Continue to monitor (3) Congestive heart failure (CHF) Status: Acute Problem Text: Diastolic CHF exacerbation Echo Is and os Lasix IV (4) GERD (gastroesophageal reflux disease) Status: Chronic Problem Text: Continue Protonix (5) Insulin dependent diabetes mellitus Status: Chronic Problem Text: Insulin sliding scale Detemir twice a day Diabetes diet (6) Dyspnea Status: Acute Problem Text: Secondary to right-sided pneumonia and CHF exacerbation Continue oxygen, inhalers, diuresis Plan / VTE VTE Prophylaxis Ordered?: Yes ALMA KIMBROUGH DO Mar 05, 2020 15:53
[2020-03-05] MEDS ORDERED: GLUCOSE 4GM CHEW TABLET PO PRN (16:00)
[2020-03-05] MEDS ORDERED: DEXTROSE 50% 50 ML SYRINGE IV PRN (16:00)
[2020-03-05] MEDS ORDERED: ALBUTEROL 90 MCG/ACT 8GM HFA INHALER INH PRN (16:00)
[2020-03-05] MEDS ORDERED: NYSTATIN 100,000 UNITS/GM TOPICAL PWD 15 GM TOP PRN (16:00)
[2020-03-05] MEDS ORDERED: NITROGLYCERIN 0.4 MG SUBL TABLET SL PRN (16:00)
[2020-03-05] MEDS ORDERED: GLUCAGON INJ 1MG VIAL SC PRN (16:00)
[2020-03-05] MEDS ORDERED: POLYVINYL ALCOHOL OPHTH SOLN 15 ML(LIQUITEARS) OU PRN (16:00)
--- NOTE | 2020-03-05 16:26 | REPVR ---
PROCEDURE INFORMATION: Exam: CT Chest Without Contrast Exam date and time: 03/05/2020 3:54 PM Age: 74 years old Clinical indication: Chest pain; Additional info: Pna TECHNIQUE: Imaging protocol: Computed tomography of the chest without contrast. 3D rendering (Not supervised by radiologist): MIP and/or 3D reconstructed images were created by the technologist. Radiation optimization: All CT scans at this facility use at least one of these dose optimization techniques: automated exposure control; mA and/or kV adjustment per patient size (includes targeted exams where dose is matched to clinical indication); or iterative reconstruction. COMPARISON: CT Chest without contrast 02/27/2020 4:03 PM FINDINGS: Limitations: Lack of intravenous contrast material limits evaluation of the vascular and visceral structures. Lungs: Complete consolidation and volume loss of the right middle lobe, significantly progressed since prior. Occlusion of the right middle lobe bronchi. Interlobular septal thickening, in a predominantly subpleural distribution. Pleural space: Unremarkable. No pneumothorax. No pleural effusion. Heart: Cardiomegaly. Prominent coronary artery calcifications. Aortic valve calcification. Mediastinal space: Redemonstration of a mass within the left posterosuperior mediastinum. This measures 5.0 cm x 2.3 cm and is intermediate in density. Pulmonary arteries: Unchanged prominence of the main pulmonary arteries, suggestive of pulmonary hypertension. Aorta: Moderate atherosclerotic calcification of the thoracic aorta. Lymph nodes: Several prominent mediastinal lymph nodes, measuring up to 16 mm in short axis dimension. Overall, these are slightly increased in size. Bones/joints: Degenerative change of the spine. Postsurgical change of the spine. Soft tissues: Unremarkable. Other findings: Abdominal findings are dictated separately. IMPRESSION: 1. Complete consolidation and volume loss of the right middle lobe and occlusion of the right middle lobe bronchi. Findings are progressed since the prior CT. 2. Slight interval progression of mediastinal lymphadenopathy. 3. Stable mediastinal mass. 4. Pulmonary fibrosis. 5. Cardiomegaly and prominent coronary artery calcifications. 6. Pulmonary hypertension. Electronically signed by: Shi Loo On 03/05/2020 16:25:36 PM
[2020-03-05 16:30] VITALS: BP 157/74
[2020-03-05] MEDS ORDERED: TORSEMIDE 20 MG TAB PO SCH (17:00)
[2020-03-05] MEDS: IPRATROPIUM 0.5MG/ALBUTEROL 2.5MG INH SOL UD 3ML (DUONEB) INH SCH ×3 (17:02→23:25)
[2020-03-05] MEDS ORDERED: SLF 3 ML SYR IV PRN (17:15)
[2020-03-05] MEDS: FUROSEMIDE 40MG/4ML VIAL (J1940) IV SCH ×2 (18:01→23:56)
[2020-03-05] MEDS: HumaLOG INSULIN (NovoLOG) PER UNIT SC SCH ×2 (18:02→22:42)
[2020-03-05] MEDS: AZITHROMYCIN INJ 500 MG, VIAL MATE ADAPTER 1 EACH in D5W 250 ML IV SCH (18:02)
--- NOTE | 2020-03-05 18:33 | ECGEPIP ---
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
[2020-03-05] MEDS: ADVAIR HFA 230/21MCG INHALER INH SCH (19:24)
[2020-03-05 20:00] VITALS: BP 132/72
[2020-03-05] MEDS ORDERED: LEVEMIR (INSULIN DETEMIR) 1 UNITS/0.01ML SC SCH (21:00)
[2020-03-05] MEDS ORDERED: MORPHINE 2 MG/ML 1ML VIAL (J2270) IV ONE (21:30)
[2020-03-05] MEDS: OLOPATADINE 0.1% OPHTH SOL 5ML(PATANOL) OS SCH (21:56)
[2020-03-05] MEDS: LATANOPROST 0.005% OPHTH SOLN 2.5 ML OU SCH (21:56)
[2020-03-05] MEDS: PIPERACILLIN/TAZOBACTAM SOD 3.375 GM in D5W MINI-BAG PLUS 50 ML IV SCH (22:00)
[2020-03-05] MEDS: HEPARIN SOD (PORCINE) 5000UNITS/ML 1ML VIAL/SYRINGE SC SCH (22:00)
[2020-03-05] MEDS: PREGABALIN 100 MG CAP (LYRICA) PO SCH (22:01)
[2020-03-05] MEDS: FAMOTIDINE 20 MG TAB PO SCH (22:01)
[2020-03-05] MEDS: DULoxetine 30 MG CAP (CYMBALTA) PO SCH (22:01)
[2020-03-05] MEDS: ROSUVASTATIN 10 MG TAB (CRESTOR) PO SCH (22:02)
[2020-03-05] MEDS: SLF 3 ML SYR IV SCH (22:02)
[2020-03-05] MEDS: ASPIRIN 81 MG ENTERIC TAB PO SCH (22:02)
[2020-03-05] MEDS: rOPINIRole 0.25 MG TAB(REQUIP) PO SCH (22:02)
[2020-03-05] MEDS: SPIRONOLACTONE 25 MG TAB PO SCH (22:41)
[2020-03-05] MEDS: ANEXSIA, NORCO 7.5MG/325MG TABLET(HYDROCODONE/APAP) PO PRN (23:35)
[2020-03-06] VITALS: BP 145/72
[2020-03-06 04:00] VITALS: BP 136/70
[2020-03-06] MEDS: IPRATROPIUM 0.5MG/ALBUTEROL 2.5MG INH SOL UD 3ML (DUONEB) INH SCH ×5 (04:00→19:54)
[2020-03-06] MEDS: PIPERACILLIN/TAZOBACTAM SOD 3.375 GM in D5W MINI-BAG PLUS 50 ML IV SCH ×4 (04:01→20:56)
[2020-03-06 05:27] LABS: HEMATOCRIT 38.9 % (36.0-47.0); HEMOGLOBIN 12.6 g/dl (12.0-15.5); MEAN CORPUSCULAR HEMOGLOBIN 26.5 pg (27.0-33.0); MEAN CORPUSCULAR HGB CONC 32.4 g/dl (32.0-36.5); MEAN CORPUSCULAR VOLUME 81.7 fl (80.0-96.0); PLATELET COUNT, AUTOMATED 191 10^3/uL (150-450); RED BLOOD COUNT 4.76 10^6/uL (4.00-5.40); WHITE BLOOD COUNT 15.3 10^3/uL (4.0-10.0)
[2020-03-06 06:02] LABS: ALBUMIN 2.6 GM/DL (3.2-5.2); BILIRUBIN,TOTAL 0.3 MG/DL (0.2-1.0); CREATININE FOR GFR 1.47 MG/DL (0.55-1.30); MAGNESIUM LEVEL 1.8 MG/DL (1.8-2.4); POTASSIUM SERUM 3.6 MEQ/L (3.5-5.1); TOTAL PROTEIN 6.1 GM/DL (6.4-8.2)
[2020-03-06] MEDS: SLF 3 ML SYR IV SCH ×3 (06:37→20:56)
[2020-03-06] MEDS: ANEXSIA, NORCO 7.5MG/325MG TABLET(HYDROCODONE/APAP) PO PRN ×3 (07:01→22:30)
[2020-03-06] MEDS: ADVAIR HFA 230/21MCG INHALER INH SCH ×2 (07:26→19:54)
[2020-03-06] MEDS: TIOTROPIUM INHALER/CAPSULE (SPIRIVA) INH SCH (07:26)
[2020-03-06] MEDS: HumaLOG INSULIN (NovoLOG) PER UNIT SC SCH ×5 (07:30→21:00)
[2020-03-06 08:00] VITALS: BP 158/68
[2020-03-06] MEDS ORDERED: POTASSIUM CHLORIDE 10 MEQ SR TABLET PO ONE (08:00)
[2020-03-06] MEDS: LEVEMIR (INSULIN DETEMIR) 1 UNITS/0.01ML SC SCH ×2 (08:33→20:49)
[2020-03-06] MEDS: SENNA 8.6 MG TAB (SENOKOT) PO SCH (08:34)
[2020-03-06] MEDS: CALCITRIOL 0.25 MCG CAP (S0169) PO SCH (08:34)
[2020-03-06] MEDS: predniSONE 10 MG TAB PO SCH (08:35)
[2020-03-06] MEDS: allopurinoL 300 MG TAB PO SCH (08:35)
[2020-03-06] MEDS: FUROSEMIDE 40MG/4ML VIAL (J1940) IV SCH ×2 (08:36→15:03)
[2020-03-06] MEDS: DULoxetine 30 MG CAP (CYMBALTA) PO SCH ×2 (08:36→20:50)
[2020-03-06] MEDS: PREGABALIN 100 MG CAP (LYRICA) PO SCH ×2 (08:36→20:50)
[2020-03-06] MEDS: PANTOPRAZOLE 40MG TAB (PROTONIX) PO SCH (08:36)
[2020-03-06] MEDS: HEPARIN SOD (PORCINE) 5000UNITS/ML 1ML VIAL/SYRINGE SC SCH ×2 (08:37→20:48)
[2020-03-06] MEDS: amLODIPine 10 MG TAB PO SCH (08:39)
[2020-03-06] MEDS: SPIRONOLACTONE 25 MG TAB PO SCH ×2 (08:39→22:30)
[2020-03-06] MEDS: OLOPATADINE 0.1% OPHTH SOL 5ML(PATANOL) OS SCH ×2 (08:39→20:56)
--- NOTE | 2020-03-06 11:32 | IPNPDOC ---
Text Note Date of Service The patient was seen on 03/06/20. NOTE Subjective: No any acute events overnight. Patient denies fever, chills, nausea, vomiting, diarrhea or dysuria. Patient stated that her breathing is better today. Objective: GENERAL APPEARANCE: NAD HEENT: no scleral icterus, + JVD, left eye blindness CARDIOVASCULAR: S1S2 LUNGS: CTA ABDOMEN: soft & not tender w palpitation MUSCULOSKELETAL: no cyanosis, no swelling INTEGUMENT: no generalized palor NEUROLOGICAL: follows commands, speech not dysarthric, no nuchal rigidity Assessment/Plan Patient 74 years old female with past medical history of COPD on 2 L home O2, active smoker, HFpEF, CAD, HTN, DM, RLS, gout presented to the ER with complaints of worsening SOB. Patient stated that for past few days she has been having increased shortness of breath associated with increased cough and yellowish to brownish sputum production. Also patient complains on the diffuse a bdominal pain. Patient stated that she had large bowel movement in the morning, denies any blood or black stool. Patient denies any fever or chills. In ER patient was found to have leukocytosis of 18, lactic acid of 2.1. Chest x-ray showed Consolidation in the right lung base, significantly progressed since prior Problems (1) Pneumonia Chest x-ray showed right middle lobe pneumonia increased in size compared to the previous one Patient was recently hospitalized, there is concern for HCAP versus postobstructive pneumonia secondary to malignancy Zosyn IV, azithromycin IV Incentive spirometry On 02/27/2020 CT was done and showed There is a soft tissue mass present in the lateral left side upper mediastinum on image 20 of series 202, image 74 of series 205 and image 53 of series 203. This measures 4.6 x 2.5 cm transversely and approximately 3.7 cm craniocaudally. The mass lies immediately posterior to the proximal left subclavian artery but appears separate from the artery on images 71 through 78 of series 205. The differential diagnosis includes thymic hyperplasia/thymoma, lymphoma, with a medial left upper lobe lung mass or pleural mass less likely I did not find labs related to myasthenia gravis workup - anti Ach receptor Ab test pending On 03/05 CT chest showed . Complete consolidation and volume loss of the right middle lobe and occlusion of the right middle lobe bronchi. Findings are progressed since the prior CT. Slight interval progression of mediastinal lymphadenopathy. Stable mediastinal mass. Dr. Holcomb recommended to continue antibiotic therapy, pulmonology team will re- evaluate patient few days for possible bronchoscopy (2) Chronic kidney disease Stage III Continue to monitor (3) Congestive heart failure (CHF) Diastolic CHF exacerbation Echo Is and os Lasix IV (4) GERD (gastroesophageal reflux disease) Continue Protonix (5) Insulin dependent diabetes mellitus Insulin sliding scale Detemir twice a day. I reduced the dose of detemir to 20 units twice a day due to one episode of hypoglycemia Diabetes diet (6) Dyspnea Resolved Secondary to right-sided pneumonia and CHF exacerbation Continue oxygen, inhalers, diuresis Mediastinal mass Patient had biopsy in 2014, negative for malignancy, biopsy was done by Dr. Carranza However patient is active smoker, we'll discuss with pulmonology team possible repeat of biopsy VS,Pamela, I+O VS, Raymund[place], I+O Laboratory Tests 03/05/20 11:58 03/06/20 05:10 Vital Signs Date Time Temp Pulse Resp B/P (MAP) Pulse Ox O2 Delivery O2 Flow Rate FiO2 03/06/20 08:39 69 158/68 03/06/20 08:00 96.9 17 94 Nasal Cannula 2.0 I&O- Last 24 Hours up to 6 AM 03/06/20 06:00 Intake Total 50 ml Output Total 1875 ml Balance -1825 ml ALMA KIMBROUGH DO Mar 06, 2020 11:32
[2020-03-06 12:00] VITALS: BP 140/0
[2020-03-06 16:00] VITALS: BP 137/67
[2020-03-06] MEDS: AZITHROMYCIN INJ 500 MG, VIAL MATE ADAPTER 1 EACH in D5W 250 ML IV SCH (17:32)
--- NOTE | 2020-03-06 18:26 | CR ---
DATE OF CONSULTATION: 03/05/2020 REASON FOR CONSULTATION: Pulmonary consultation. I was asked to evaluate this 74-year-old, female admitted today for increasing dyspnea and abnormal x-rays. She is followed on an outpatient basis by Dr. France, last visit was June of 2019, at which time she was assessed for her obstructive lung disease and abnormal adenopathy. She underwent bronchoscopy in 2014 for biopsy of an abnormal lymph node in the right hilar area. Atypical cells were identified but there was no evidence of malignancy. CT scans have been stable from 2013 up to January of 2020. The patient is oxygen dependent with chronic obstructive pulmonary disease (COPD), actively smoking, she has a 50+ pack-year smoking history, now has reduced her habit to a few cigarettes per day. She has an FEV1 of 1.13 liters, 54% of predicted. At baseline, she is oxygen dependent and dyspneic with activities of daily living. She has some daily cough with occasional sputum production. Prior to admission, she did not experience fever or chills, her cough was mildly purulent, no hemoptysis. She denies chest pain. PAST MEDICAL HISTORY: Includes obstructive sleep apnea syndrome, remote diagnosis, not using continuous positive airway pressure (CPAP) prescribed at a level of 4 cm, chronic pain, type 2 diabetes, hypertension, pulmonary hypertension (right ventricular (RV) systolic pressure 70), lumbar disc disease status post discectomy. Her pulmonary medications included Advair 250/50 twice a day and Incruse Ellipta once a day, Ventolin as needed, and supplemental oxygen at two liters. ALLERGIES: She has no known medication allergies. PHYSICAL EXAMINATION: Her temperature is 97, pulse rate 74, respirations 20, blood pressure 154/74. She is alert and oriented, in moderate respiratory distress. HEENT: Her oral mucosa is pink. Neck is supple, no meningismus, no adenopathy in the cervical chains. She has mild exophthalmus. Jugular venous distention is approximately 3 cm. Heart sounds are regular with a prominent second heart sound. Breath sounds are diminished with coarse rhonchi on the right. Abdomen is soft. Extremities: No edema. Extensive review was made of her past medical records, her laboratory studies since admission, and imaging studies. IMPRESSIONS: 1. Acute exacerbation of chronic hypoxemic respiratory failure. 2. Pulmonary edema. 3. Pulmonary hypertension. 4. Obstructive sleep apnea. 5. Abnormal CT. 5.a. Atelectasis right middle lobe. 6. Bronchiectasis. 7. Ongoing tobacco use. RECOMMENDATION: 1. I agree with supplemental oxygen diuresis and I will restart long acting inhaled corticosteroid, long acting beta agonist, long acting muscarinic antagonist therapy. 2. I will add positive expiratory pressure (PEP) therapy and Acapella to facilitate secretion clearance. 3. Will obtain sputum for cytology. 4. Will reassess imaging and if the atelectasis persists at that point I would consider endoscopic evaluation. Thank you for allowing me to consult in the care of this patient. If there are questions, please do not hesitate to contact me. ALINE
[2020-03-06 20:00] VITALS: BP 152/71
[2020-03-06] MEDS: ASPIRIN 81 MG ENTERIC TAB PO SCH (20:50)
[2020-03-06] MEDS: rOPINIRole 0.25 MG TAB(REQUIP) PO SCH (20:50)
[2020-03-06] MEDS: FAMOTIDINE 20 MG TAB PO SCH (20:50)
[2020-03-06] MEDS: ROSUVASTATIN 10 MG TAB (CRESTOR) PO SCH (20:51)
[2020-03-06] MEDS: LATANOPROST 0.005% OPHTH SOLN 2.5 ML OU SCH (20:56)
[2020-03-07] VITALS: BP 153/70
[2020-03-07] MEDS: FUROSEMIDE 40MG/4ML VIAL (J1940) IV SCH ×3 (00:34→15:13)
[2020-03-07] MEDS ORDERED: HumaLOG INSULIN (NovoLOG) PER UNIT SC ONE ×2 (02:30)
[2020-03-07] MEDS: PIPERACILLIN/TAZOBACTAM SOD 3.375 GM in D5W MINI-BAG PLUS 50 ML IV SCH ×4 (03:01→20:28)
[2020-03-07] MEDS: IPRATROPIUM 0.5MG/ALBUTEROL 2.5MG INH SOL UD 3ML (DUONEB) INH SCH ×6 (03:23→19:45)
[2020-03-07 04:00] VITALS: BP 150/72
[2020-03-07] MEDS: ANEXSIA, NORCO 7.5MG/325MG TABLET(HYDROCODONE/APAP) PO PRN ×3 (04:26→20:27)
[2020-03-07] MEDS: SLF 3 ML SYR IV SCH ×3 (05:46→21:55)
[2020-03-07] MEDS: TIOTROPIUM INHALER/CAPSULE (SPIRIVA) INH SCH (07:21)
[2020-03-07] MEDS: ADVAIR HFA 230/21MCG INHALER INH SCH ×2 (07:21→19:44)
[2020-03-07 08:00] VITALS: BP 159/80
[2020-03-07 08:23] LABS: BASO # 0.1 10^3/uL (0.0-0.2); BASO % 0.5 % (0.0-1.0); EOS # 0.1 10^3/uL (0.0-0.5); EOS % 1.1 % (0.0-3.0); HEMATOCRIT 39.1 % (36.0-47.0); HEMOGLOBIN 12.4 g/dl (12.0-15.5); LYMPH # 2.3 10^3/uL (1.5-5.0); LYMPH % 18.9 % (24.0-44.0); MEAN CORPUSCULAR HEMOGLOBIN 26.4 pg (27.0-33.0); MEAN CORPUSCULAR HGB CONC 31.7 g/dl (32.0-36.5); MEAN CORPUSCULAR VOLUME 83.4 fl (80.0-96.0); MONO % 8.3 % (0.0-5.0); NEUTROPHILS # 8.6 10^3/uL (1.5-8.5); NEUTROPHILS % 70.8 % (36.0-66.0); PLATELET COUNT, AUTOMATED 205 10^3/uL (150-450); RED BLOOD COUNT 4.69 10^6/uL (4.00-5.40); WHITE BLOOD COUNT 12.1 10^3/uL (4.0-10.0)
[2020-03-07] MEDS: HumaLOG INSULIN (NovoLOG) PER UNIT SC SCH ×4 (08:35→20:25)
[2020-03-07] MEDS: HEPARIN SOD (PORCINE) 5000UNITS/ML 1ML VIAL/SYRINGE SC SCH ×2 (08:36→20:28)
[2020-03-07] MEDS: PANTOPRAZOLE 40MG TAB (PROTONIX) PO SCH (08:37)
[2020-03-07] MEDS: LEVEMIR (INSULIN DETEMIR) 1 UNITS/0.01ML SC SCH (08:37)
[2020-03-07] MEDS: DULoxetine 30 MG CAP (CYMBALTA) PO SCH ×2 (08:38→20:26)
[2020-03-07] MEDS: predniSONE 10 MG TAB PO SCH (08:38)
[2020-03-07] MEDS: allopurinoL 300 MG TAB PO SCH (08:38)
[2020-03-07] MEDS: CALCITRIOL 0.25 MCG CAP (S0169) PO SCH (08:39)
[2020-03-07] MEDS: amLODIPine 10 MG TAB PO SCH (08:39)
[2020-03-07] MEDS: SPIRONOLACTONE 25 MG TAB PO SCH ×2 (08:39→20:26)
[2020-03-07] MEDS: SENNA 8.6 MG TAB (SENOKOT) PO SCH (08:39)
[2020-03-07] MEDS: PREGABALIN 100 MG CAP (LYRICA) PO SCH ×2 (08:39→20:26)
[2020-03-07] MEDS: OLOPATADINE 0.1% OPHTH SOL 5ML(PATANOL) OS SCH ×2 (08:41→20:28)
[2020-03-07 08:55] LABS: CREATININE FOR GFR 1.81 MG/DL (0.55-1.30)
[2020-03-07 08:56] LABS: CALCIUM LEVEL 8.4 MG/DL (8.8-10.2); GLOMERULAR FILTRATION RATE 29.1 (>39); MAGNESIUM LEVEL 1.6 MG/DL (1.8-2.4)
[2020-03-07] MEDS ORDERED: metOLazone 2.5 MG TAB PO SCH (09:00)
--- NOTE | 2020-03-07 11:43 | IPNPDOC ---
Text Note Date of Service The patient was seen on 03/07/20. NOTE Subjective: No any acute events overnight. Patient stated that her breathing improved Objective: GENERAL APPEARANCE: NAD HEENT: no scleral icterus, + JVD, left eye blindness CARDIOVASCULAR: S1S2 LUNGS: CTA ABDOMEN: soft & not tender w palpitation MUSCULOSKELETAL: no cyanosis, no swelling INTEGUMENT: no generalized palor NEUROLOGICAL: follows commands, speech not dysarthric, no nuchal rigidity Assessment/Plan Patient 74 years old female with past medical history of COPD on 2 L home O2, active smoker, HFpEF, CAD, HTN, DM, RLS, gout presented to the ER with c omplaints of worsening SOB. Patient stated that for past few days she has been having increased shortness of breath associated with increased cough and yellowish to brownish sputum production. Also patient complains on the diffuse abdominal pain. Patient stated that she had large bowel movement in the morning, denies any blood or black stool. Patient denies any fever or chills. In ER patient was found to have leukocytosis of 18, lactic acid of 2.1. Chest x-ray showed Consolidation in the right lung base, significantly progressed since prior (1) Pneumonia Chest x-ray showed right middle lobe pneumonia increased in size compared to the previous one Patient was recently hospitalized, there is concern for HCAP versus postobstructive pneumonia secondary to malignancy Zosyn IV, azithromycin IV Incentive spirometry On 02/27/2020 CT was done and showed There is a soft tissue mass present in the lateral left side upper mediastinum on image 20 of series 202, image 74 of series 205 and image 53 of series 203. This measures 4.6 x 2.5 cm transversely and approximately 3.7 cm craniocaudally. The mass lies immediately posterior to the proximal left subclavian artery but appears separate from the artery on images 71 through 78 of series 205. The differential diagnosis includes thymic hyperplasia/thymoma, lymphoma, with a medial left upper lobe lung mass or pleural mass less likely I did not find labs related to myasthenia gravis workup - anti Ach receptor Ab test pending On 03/05 CT chest showed . Complete consolidation and volume loss of the right middle lobe and occlusion of the right middle lobe bronchi. Findings are progressed since the prior CT. Slight interval progression of mediastinal lymphadenopathy. Stable mediastinal mass. Dr. Holcomb recommended to continue antibiotic therapy Dr. Carranza saw patient today she recommended follow-up in the outpatient settings (2) Chronic kidney disease Stage III Continue to monitor (3) Congestive heart failure (CHF) Diastolic CHF exacerbation Echo pending Is and os Lasix IV (4) GERD (gastroesophageal reflux disease) Continue Protonix (5) Insulin dependent diabetes mellitus Insulin sliding scale Detemir twice a day. (6) Dyspnea Resolved Secondary to right-sided pneumonia and CHF exacerbation Continue oxygen, inhalers, diuresis Mediastinal mass Patient had biopsy in 2014, negative for malignancy, biopsy was done by Dr. Carranza However patient is active smoker Dr. Carranza saw patient today and recommended follow-up in the outpatient settings VS,Emeteriobone, I+O VS, Fishbone, I+O Laboratory Tests 03/07/20 07:51 Vital Signs Date Time Temp Pulse Resp B/P (MAP) Pulse Ox O2 Delivery O2 Flow Rate FiO2 03/07/20 10:44 20 03/07/20 09:00 2.0 03/07/20 08:39 85 159/80 03/07/20 08:00 98.4 95 Nasal Cannula I&O- Last 24 Hours up to 6 AM 03/07/20 06:00 Intake Total 2130 ml Output Total 2750 ml Balance -620 ml ALMA KIMBROUGH DO Mar 07, 2020 11:43
[2020-03-07 12:00] VITALS: BP 142/60
[2020-03-07 16:00] VITALS: BP 150/70
[2020-03-07] MEDS ORDERED: PILL CUTTER 1 EACH XX PRN (18:30)
[2020-03-07] MEDS: AZITHROMYCIN INJ 500 MG, VIAL MATE ADAPTER 1 EACH in D5W 250 ML IV SCH (18:33)
[2020-03-07 20:00] VITALS: BP 143/77
[2020-03-07] MEDS: MAGNESIUM GLUCONATE 500 MG TAB PO SCH (20:24)
[2020-03-07] MEDS: ROSUVASTATIN 10 MG TAB (CRESTOR) PO SCH (20:26)
[2020-03-07] MEDS: rOPINIRole 0.25 MG TAB(REQUIP) PO SCH (20:26)
[2020-03-07] MEDS: LATANOPROST 0.005% OPHTH SOLN 2.5 ML OU SCH (20:27)
[2020-03-07] MEDS: ASPIRIN 81 MG ENTERIC TAB PO SCH (20:27)
[2020-03-07] MEDS: FAMOTIDINE 20 MG TAB PO SCH (20:27)
[2020-03-07] MEDS ORDERED: LEVEMIR (INSULIN DETEMIR) 1 UNITS/0.01ML SC SCH (21:00)
[2020-03-07] MEDS ORDERED: MAGNESIUM GLUCONATE 500 MG TAB PO SCH (21:00)
[2020-03-08] VITALS: BP 155/74
[2020-03-08] MEDS: IPRATROPIUM 0.5MG/ALBUTEROL 2.5MG INH SOL UD 3ML (DUONEB) INH SCH ×4 (00:01→12:00)
[2020-03-08] MEDS: FUROSEMIDE 40MG/4ML VIAL (J1940) IV SCH ×2 (00:03→08:50)
[2020-03-08 04:00] VITALS: BP 154/76
[2020-03-08] MEDS: PIPERACILLIN/TAZOBACTAM SOD 3.375 GM in D5W MINI-BAG PLUS 50 ML IV SCH ×2 (04:19→08:53)
[2020-03-08 04:27] LABS: BASO # 0.1 10^3/uL (0.0-0.2); BASO % 0.5 % (0.0-1.0); EOS # 0.1 10^3/uL (0.0-0.5); EOS % 0.5 % (0.0-3.0); HEMATOCRIT 38.6 % (36.0-47.0); HEMOGLOBIN 12.2 g/dl (12.0-15.5); LYMPH # 2.4 10^3/uL (1.5-5.0); MEAN CORPUSCULAR HGB CONC 31.6 g/dl (32.0-36.5); MEAN CORPUSCULAR VOLUME 82.1 fl (80.0-96.0); MONO % 8.4 % (0.0-5.0); NEUTROPHILS # 8.5 10^3/uL (1.5-8.5); NEUTROPHILS % 70.1 % (36.0-66.0); PLATELET COUNT, AUTOMATED 200 10^3/uL (150-450); WHITE BLOOD COUNT 12.1 10^3/uL (4.0-10.0)
[2020-03-08] MEDS: ANEXSIA, NORCO 7.5MG/325MG TABLET(HYDROCODONE/APAP) PO PRN (04:44)
[2020-03-08 04:53] LABS: CALCIUM LEVEL 9.2 MG/DL (8.8-10.2); CREATININE FOR GFR 1.74 MG/DL (0.55-1.30); GLOMERULAR FILTRATION RATE 30.4 (>39); MAGNESIUM LEVEL 1.6 MG/DL (1.8-2.4); POTASSIUM SERUM 4.4 MEQ/L (3.5-5.1)
[2020-03-08] MEDS: SLF 3 ML SYR IV SCH (05:22)
[2020-03-08] MEDS: TIOTROPIUM INHALER/CAPSULE (SPIRIVA) INH SCH (07:28)
[2020-03-08] MEDS: ADVAIR HFA 230/21MCG INHALER INH SCH (07:28)
[2020-03-08] MEDS: HumaLOG INSULIN (NovoLOG) PER UNIT SC SCH ×2 (07:30→12:00)
[2020-03-08 08:00] VITALS: BP 159/76
[2020-03-08 08:51] VITALS: BP 159/76
[2020-03-08] MEDS: predniSONE 10 MG TAB PO SCH (08:51)
[2020-03-08] MEDS: allopurinoL 300 MG TAB PO SCH (08:51)
[2020-03-08] MEDS: SENNA 8.6 MG TAB (SENOKOT) PO SCH (08:51)
[2020-03-08] MEDS: amLODIPine 10 MG TAB PO SCH (08:51)
[2020-03-08] MEDS: DULoxetine 30 MG CAP (CYMBALTA) PO SCH (08:51)
[2020-03-08] MEDS: PANTOPRAZOLE 40MG TAB (PROTONIX) PO SCH (08:51)
[2020-03-08] MEDS: SPIRONOLACTONE 25 MG TAB PO SCH (08:52)
[2020-03-08] MEDS: PREGABALIN 100 MG CAP (LYRICA) PO SCH (08:52)
[2020-03-08] MEDS: HEPARIN SOD (PORCINE) 5000UNITS/ML 1ML VIAL/SYRINGE SC SCH (08:52)
[2020-03-08] MEDS: MAGNESIUM GLUCONATE 500 MG TAB PO SCH (08:52)
[2020-03-08] MEDS: OLOPATADINE 0.1% OPHTH SOL 5ML(PATANOL) OS SCH (08:53)
[2020-03-08] MEDS: LEVEMIR (INSULIN DETEMIR) 1 UNITS/0.01ML SC SCH (08:53)
[2020-03-08] MEDS ORDERED: NICO1DIS9 TOP (10:27)
[2020-03-08] MEDS ORDERED: AZIT-12 PO (10:29)
[2020-03-08 12:00] VITALS: BP 136/68
--- NOTE | 2020-03-08 12:34 | DS.PDOC ---
Discharge Summary General Date of Admission Mar 05, 2020 at 15:13 Date of Discharge 03/08/20 Discharge Summary PROCEDURES PERFORMED DURING STAY: [None]. ADMITTING DIAGNOSES: Pneumonia Chronic kidney disease Congestive heart failure (CHF) GERD (gastroesophageal reflux disease) Insulin dependent diabetes mellitus Dyspnea Mediastinal mass DISCHARGE DIAGNOSES: Pneumonia Chronic kidney disease Congestive heart failure (CHF) GERD (gastroesophageal reflux disease) Insulin dependent diabetes mellitus Dyspnea Mediastinal mass COMPLICATIONS/CHIEF COMPLAINT: Acute And Chronic Resp Failure,Pneumonia. HISTORY OF PRESENT ILLNESS: Patient 74 years old female with past medical history of COPD on 2 L home O2, active smoker, HFpEF, CAD, HTN, DM, RLS, gout presented to the ER with complaints of worsening SOB. Patient stated that for past few days she has been having increased shortness of breath associated with increased cough and yellowish to brownish sputum production. Also patient complains on the diffuse abdominal pain. Patient stated that she had large bowel movement in the morning, denies any blood or black stool. Patient denies any fever or chills. In ER patient was found to have leukocytosis of 18, lactic acid of 2.1. Chest x-ray showed Consolidation in the right lung base, significantly progressed since prior HOSPITAL COURSE: During hospital stay following issue addressed (1) Pneumonia Chest x-ray showed right middle lobe pneumonia increased in size compared to the previous one Patient was recently hospitalized, there is concern for HCAP versus postobstructive pneumonia secondary to malignancy Patient received treatment with antibiotic therapy Incentive spirometry On 02/27/2020 CT was done and showed There is a soft tissue mass present in the lateral left side upper mediastinum on image 20 of series 202, image 74 of series 205 and image 53 of series 203. This measures 4.6 x 2.5 cm transversely and approximately 3.7 cm craniocaudally. The mass lies immediately posterior to the proximal left subclavian artery but appears separate from the artery on images 71 through 78 of series 205. The differential diagnosis includes thymic hyperplasia/thymoma, lymphoma, with a medial left upper lobe lung mass or pleural mass less likely I did not find labs related to myasthenia gravis workup - anti Ach receptor Ab test pending On 03/05 CT chest showed . Complete consolidation and volume loss of the right middle lobe and occlusion of the right middle lobe bronchi. Findings are progressed since the prior CT. Slight interval progression of mediastinal lymphadenopathy. Stable mediastinal mass. Dr. Holcomb recommended to continue antibiotic therapy Dr. Carranza saw patient today she recommended follow-up in the outpatient settings Most likely patient will benefit from chronic azithromycin therapy. (2) Chronic kidney disease Stage III Continue to monitor (3) Congestive heart failure (CHF) Diastolic CHF exacerbation Echo pending Is and os Lasix IV (4) GERD (gastroesophageal reflux disease) Continue Protonix (5) Insulin dependent diabetes mellitus Insulin sliding scale Detemir twice a day. (6) Dyspnea Resolved Secondary to right-sided pneumonia and CHF exacerbation Continue oxygen, inhalers, diuresis Mediastinal mass Patient had biopsy in 2014, negative for malignancy, biopsy was done by Dr. Carranza However patient is active smoker Dr. Carranza saw patient today and recommended follow-up in the outpatient settings DISCHARGE MEDICATIONS: Please see below. ALLERGIES: Please see below. PHYSICAL EXAMINATION ON DISCHARGE: VITAL SIGNS: Please see below. GENERAL APPEARANCE: NAD HEENT: no scleral icterus, + JVD, left eye blindness CARDIOVASCULAR: S1S2 LUNGS: CTA ABDOMEN: soft & not tender w palpitation MUSCULOSKELETAL: no cyanosis, no swelling INTEGUMENT: no generalized palor NEUROLOGICAL: follows commands, speech not dysarthric, no nuchal rigidity LABORATORY DATA: Please see below. IMAGING: Exam: CT Chest Without Contrast Exam date and time: 03/05/2020 3:54 PM Age: 74 years old Clinical indication: Chest pain; Additional info: Pna TECHNIQUE: Imaging protocol: Computed tomography of the chest without contrast. 3D rendering (Not supervised by radiologist): MIP and/or 3D reconstructed images were created by the technologist. Radiation optimization: All CT scans at this facility use at least one of these dose optimization techniques: automated exposure control; mA and/or kV adjustment per patient size (includes targeted exams where dose is matched to clinical indication); or iterative reconstruction. COMPARISON: CT Chest without contrast 02/27/2020 4:03 PM FINDINGS: Limitations: Lack of intravenous contrast material limits evaluation of the vascular and visceral structures. Lungs: Complete consolidation and volume loss of the right middle lobe, significantly progressed since prior. Occlusion of the right middle lobe bronchi. Interlobular septal thickening, in a predominantly subpleural distribution. Pleural space: Unremarkable. No pneumothorax. No pleural effusion. Heart: Cardiomegaly. Prominent coronary artery calcifications. Aortic valve calcification. Mediastinal space: Redemonstration of a mass within the left posterosuperior mediastinum. This measures 5.0 cm x 2.3 cm and is intermediate in density. Pulmonary arteries: Unchanged prominence of the main pulmonary arteries, suggestive of pulmonary hypertension. Aorta: Moderate atherosclerotic calcification of the thoracic aorta. Lymph nodes: Several prominent mediastinal lymph nodes, measuring up to 16 mm in short axis dimension. Overall, these are slightly increased in size. Bones/joints: Degenerative change of the spine. Postsurgical change of the spine. Soft tissues: Unremarkable. Other findings: Abdominal findings are dictated separately. IMPRESSION: 1. Complete consolidation and volume loss of the right middle lobe and occlusion of the right middle lobe bronchi. Findings are progressed since the prior CT. 2. Slight interval progression of mediastinal lymphadenopathy. 3. Stable mediastinal mass. 4. Pulmonary fibrosis. 5. Cardiomegaly and prominent coronary artery calcifications. 6. Pulmonary hypertension. Electronically signed by: Shi Loo On 03/05/2020 16:25:36 PM DD: SHI LOO MD 03/05/20 1554 DT: QUENTIN 03/05/20 1625 DS: MIKE 03/05/20 1625 PROGNOSIS: Fair ACTIVITY: [As tolerated]. DIET: Regular DISCHARGE PLAN: Home with home service DISCHARGE INSTRUCTIONS: Follow-up with foam rubber molder, director credit risk and PCP in 7 days DISCHARGE CONDITION: [Stable]. TIME SPENT ON DISCHARGE: Greater than 40minutes. Vital Signs/I&Os Vital Signs Date Time Temp Pulse Resp B/P (MAP) Pulse Ox O2 Delivery O2 Flow Rate FiO2 03/08/20 12:00 97.2 86 20 136/68 (90) 95 Nasal Cannula 2.0 I&O- Last 24 Hours up to 6 AM 03/08/20 06:00 Intake Total 999 ml Output Total 3550 ml Balance -2551 ml Laboratory Data Labs 24H Laboratory Tests 2 03/07/20 18:14: Bedside Glucose (Misc Panel) 369H 03/07/20 19:52: Bedside Glucose (Misc Panel) 447H 03/07/20 23:55: Bedside Glucose (Misc Panel) 213H 03/08/20 02:37: Bedside Glucose (Misc Panel) 179H 03/08/20 04:11: Immature Granulocyte % (Auto) 0.5, Neutrophils (%) (Auto) 70.1H, Lymphocytes (%) (Auto) 20.0L, Monocytes (%) (Auto) 8.4H, Eosinophils (%) (Auto) 0.5, Basophils (%) (Auto) 0.5, Neutrophils # (Auto) 8.5, Lymphocytes # (Auto) 2.4, Monocytes # (Auto) 1.0H, Eosinophils # (Auto) 0.1, Basophils # (Auto) 0.1, Nucleated Red Blood Cells % (auto) 0.0, Anion Gap 4L, Glomerular Filtration Rate 30.4L, Calcium Level 9.2, Magnesium Level 1.6L 03/08/20 04:18: Bedside Glucose (Misc Panel) 170H CBC/BMP Laboratory Tests 03/08/20 04:11 FSBS Laboratory Tests Test 03/07/20 18:14 03/07/20 19:52 03/07/20 23:55 03/08/20 02:37 Range/Units Bedside Glucose (Misc Panel) 369 447 213 179 83-110 MG/DL Test 03/08/20 04:18 Range/Units Bedside Glucose (Misc Panel) 170 83-110 MG/DL Microbiology Microbiology 03/05/20 Gram Stain - Final, Complete 03/05/20 Sputum Culture - Final, Complete 03/05/20 Blood Culture - Preliminary, Resulted No Growth after 72 hours. All specime... 03/05/20 Blood Culture - Preliminary, Resulted No Growth after 72 hours. All specime... Discharge Medications Scheduled Allopurinol (Zyloprim) 300 Mg Tab, 300 MG PO DAILY, (Reported) Amlodipine Besylate (Amlodipine Besylate) 10 Mg Tablet, 10 MG PO DAILY, (Reported) Aspirin (Aspir 81) 81 Mg Tablet.dr, 81 MG PO QHS, (Reported) Azithromycin (Azithromycin) 250 Mg Tablet, 250 MG PO ASDIRECTED 2 the first day followed by 1 for days 2-5 Calcitriol (Calcitriol) 0.25 Mcg Cap, 0.25 MCG PO 5XW, (Reported) MON-TUE Cholecalciferol (Vitamin D3) (Vitamin D3) 125 Mcg Capsule, 5,000 MCG PO DAILY, (Reported) Duloxetine Hcl (Duloxetine HCl) 60 Mg Cap, 60 MG PO BID, (Reported) Esomeprazole Magnesium (Nexium) 40 Mg Capsule.dr, 40 MG PO DAILY, (Reported) Famotidine (Famotidine) 20 Mg Tablet, 20 MG PO QHS, (Reported) Insulin NPH Human Isophane (Humulin N Kwikpen) 100 Unit/1 Ml Insuln.pen, 75 UNITS SQ QAM, (Reported) Latanoprost (Xalatan) 0.005% 2.5ML Drops, 1 DROP OU QHS, (Reported) Melatonin (Melatonin) 5 Mg Tablet, 10 MG PO QHS, (Reported) Metolazone (Metolazone) 2.5 Mg Tablet, 2.5 MG PO 3XW, (Reported) MON/TUE/FRI Nicotine (Nicotine Patch) 14 Mg/24 Hr Patch.td24, 1 PATCH TOP DAILY for smoking cessation Olopatadine HCl (Olopatadine HCl) 0.1% 5ML Drops, 1 DROP OS BID, (Reported) Prednisone (Prednisone) 10 Mg Tab, 10 MG PO DAILY, (Reported) Pregabalin (Lyrica) 200 Mg Cap, 200 MG PO BID, (Reported) Ropinirole HCl (Requip) 0.25 Mg Tablet, 0.5 MG PO QHS, (Reported) Rosuvastatin Calcium (Crestor) 20 Mg Tab, 20 MG PO QHS, (Reported) Spironolactone (Spironolactone) 25 Mg Tab, 25 MG PO BID, (Reported) Torsemide (Torsemide) 20 Mg Tablet, 40 MG PO BID, (Reported) TAKES AM/1600 Umeclidinium [place] (Incruse Ellipta) 62.5 Mcg Blst.w.dev, 1 PUFF INH DAILY, (Reported) Scheduled PRN Albuterol Sulf (Albuterol Sulfate) 2.5 Mg/3 Ml Vial.neb, 2.5 MG INH Q4H PRN for SHORTNESS OF BREATH, (Reported) Albuterol Sulfate (Ventolin Hfa) 108 Mcg/Act Aer, 2 PUFFS INH Q4H PRN for SHORTNESS OF BREATH, (Reported) Hydrocodone/Acetaminophen (Hydrocodone-Acetamin 10-325 mg) 1 Tab Tab, 1 TAB PO Q6H PRN for PAIN, (Reported) Nitroglycerin (Nitrostat) 0.4 Mg Subl, 0.4 MG SL NITRO PRN for CHEST PAIN, (Reported) Nystatin (Nyamyc) 15 Gm Powder, 1 DOSE TOP BID PRN for REDNESS/IRRITATION, (Reported) APPLY TO UNDER BREASTS AND GROIN Polyvinyl Alcohol (Artificial Tears) 15 Ml Drops, 1 DROP OU QID PRN for DRY EYES, (Reported) Allergies Coded Allergies: TAPE (Verified Allergy, Unknown, 12/13/18) ALMA KIMBROUGH DO Mar 08, 2020 12:34
[2020-03-09 14:11] LABS: BODY FLUID CULTURE Not indicated. (.); ORGANISM ID Not indicated. (.); SPECIMEN SOURCE Urine (.); URINE STREP PNEUMONIAE ANTIGEN Negative (Negative)
--- NOTE | 2020-03-09 14:27 | IPN ---
DATE: 03/07/2020 Ms. Julio is seen on progressive care unit (PCU). She reports that she is gradually improving. She denies any new issues overnight. Patient denies fevers or chills. She states her breathing is gradually improving. PHYSICAL EXAMINATION: Vital signs: Temperature 98.4, pulse 82, respiratory rate 18, blood pressure 159/80, pulse oximetry 95% on two liters. General: Patient is alert and oriented times three, mood and affect appropriate. She speaks in complete sentences. She is sitting up in a chair. HEENT: Head is normocephalic, atraumatic. Moist mucous membranes. Mallampati IV. Neck: Neck is supple, no cervical lymphadenopathy. No jugular venous distension (JVD). Trachea is midline. Cardiac: Regular rate and rhythm, S1 and S2, no murmurs. Pulmonary: Patient has an inspiratory squeak on the right. No wheezes, rales, or rhonchi appreciated. No accessory muscle use. Abdomen: Positive bowel sounds, soft, nontender, no rebound or guarding. Extremities: No clubbing, cyanosis, or edema. Skin: Patient does have areas of ecchymosis on her upper distal extremities. She does have a dressing on her right gotti area covering a skin tear. LABORATORY DATA: WBC 12.1, hemoglobin 12.4, hematocrit 39.1, platelets 205. Chemistry pending at the time of this dictation. Sputum culture is pending at the time of this dictation. Chest x-ray from 03/07/2020: There is a consolidation in the right lung which does appear to be improving compared to prior imaging. ASSESSMENT AND PLAN: 1. Pneumonia. DICTATION ENDS HERE MTDD
--- NOTE | 2020-03-10 07:13 | ECHO ---
DATE OF PROCEDURE: 03/07/2020 Age: 74 Gender: Female REFERRING PROVIDER: Sundeep Morales DO PATIENT LOCATION: Room 3217. REASON FOR STUDY: Heart failure, unspecified. 2D MEASUREMENTS: IVS 1.7 cm LV 4.3 cm LVPW 1.6 cm LA 5.0 cm Aorta 3.2 cm IVC 1.5 cm DOPPLER MEASUREMENT Peak velocity across the aortic valve 1.6 m/s Peak velocity across the LVOT 0.86 m/s Peak gradient across the aortic valve 10 mmHg. Mean gradient across the aortic valve 6 mmHg Mitral E 0.78 Mitral A 0.97 with a ratio of 0.8 Maximum tricuspid valve velocity 2.6 m/s 2D COMMENTS: 1. Normal left ventricular size with moderately increased left ventricular wall thickness. Left ventricular systolic function is normal, estimated at 60% to 65%. 2. Mildly to moderately enlarged left atrium. Normal right atrium. The right ventricle appeared to be mildly enlarged and hypokinetic in limited views. 3. The atrial septum appeared to be normal without evidence of defect or shunt. 4. Normal aortic root. 5. A small pericardial effusion was noted, no evidence of cardiac tamponade. 6. Mildly calcified aortic valve with normal leaflet excursion. Mildly calcified mitral annulus with normal anterior mitral valve leaflet motion. Normal tricuspid valve and pulmonic valve. The proximal pulmonary artery branches were not well visualized. 7. The inferior vena cava was normal in size, central venous pressure is most likely normal. Doppler detects mild tricuspid regurgitation, and mild pulmonic regurgitation. The calculated pulmonary artery systolic pressure varies between 30 to 40 mmHg. Abnormal relaxation pattern was noted across the mitral valve leaflets, as well as the mitral valve annulus consistent with features of grade 1 left ventricular diastolic dysfunction. IMPRESSION: 1. Normal global left ventricular systolic function. There are some features of grade 1 left ventricular dialysis manifested by abnormal relaxation. 2. Aortic valve sclerosis with trivial aortic stenosis, but no aortic regurgitation. 3. Mitral annulus calcification, isolated. The left atrium is mildly to moderately enlarged. No evidence of significant mitral regurgitation or mitral stenosis. 4. Mild tricuspid regurgitation with mild pulmonary hypertension. 5. Mild pulmonic regurgitation. 6. A small pericardial effusion was noted, no evidence of cardiac tamponade. 7. Patient had an echocardiogram on 02/11/2020, left ventricular systolic function was normal. [facility]
--- NOTE | 2020-03-11 09:23 | REP ---
CHEST X-RAY: 2-VIEWS HISTORY: Right middle lobe atelectasis. COMPARISON: Made with chest CT study and chest x-ray study 03/05/2020. FINDINGS: There is parenchymal opacity in the right middle lobe distribution obscuring the right heart border consistent with CT finding of lobar atelectasis right middle lobe. Widening of the mediastinum is seen in the left apex above the aortic arch consistent with the mediastinal mass seen in this location. Moderate cardiac enlargement is again observed unchanged. Diffuse interstitial parenchymal changes are seen bilaterally consistent with fibrosis. No pleural effusion is seen. IMPRESSION: Lobar atelectasis right middle lobe. Cardiomegaly and diffuse interstitial lung disease. Mediastinal mass to the left of the trachea at the thoracic inlet. MTDD
--- NOTE | 2020-03-11 15:15 | IPN ---
DATE: 03/07/2020 SUBJECTIVE: Ms. Julio is seen in the PCU. She reports that she is gradually improving and feels that she is slowly breathing better. She denies any issues overnight. She denies fevers or chills. PHYSICAL EXAMINATION: Vitals: Temperature 98.4, pulse 85, respiratory rate 18, blood pressure 159/80, pulse oximetry 95% on 2 liters. General: The patient is alert and oriented times three. Mood and affect appropriate. She is sitting in a chair. She is speaking complete sentences. HEENT: Head is normocephalic/atraumatic. Moist mucous membranes. Tongue is midline. Mallampati IV. Neck: Neck is supple. No cervical lymphadenopathy. No JVD. Trachea is midline. Cardiac: Regular rate and rhythm, S1, S2, no murmurs. Pulmonary: The patient has an inspiratory squeak on the right, otherwise no rales, rhonchi, or wheezes. No accessory muscle use. Abdomen: Positive bowel sounds, soft and nontender. Extremities: No clubbing, cyanosis, or edema. Skin: Skin is warm and dry. There is ecchymosis noted on the distal upper extremities. The patient does have a dressing on her right distal lower extremity for a skin tear. LABS: WBC 12.1, hemoglobin 12.4, hematocrit 39.1, platelets 205. Chemistry is pending at the time of this dictation. Sputum culture is pending at the time of this dictation. Chest x-ray: Chest x-ray from 03/07/2020 does show consolidation in the right lung which does appear to be improving compared to prior imaging. ASSESSMENT AND PLAN: 1. Pneumonia. The patient is being treated with antibiotics. She is on IV Zosyn and IV Azithromycin. She is getting nebs. She is getting Prednisone. She is getting Advair and Spiriva. We feel the patient is likely nearing discharge. We have discussed this with the patient's medical attending. 2. Abnormal chest CT. The patients chest CT does show a right middle lobe consolidation with minimal aeration which is new this admission. She does have mediastinal adenopathy which does appear to be stable going back to prior imaging studies. She has bronchiectasis. There is peripheral fibrosis without true features of IPF. The patient does have a left-sided mediastinal mass in the posterior/superior mediastinum that has been unchanged going back over a year. This may be a loculated area from lung collapse. When the patient is able to be discharged, the patient should follow up with her mid level business analyst, Dr. France for followup and consideration of bronchoscopy due to the abnormalities on imaging. ALINE
== END 2020-03-08 14:00 | disposition home health service (06) | DRG 291 ==
LOC: M ED 11:39 → EDBD 11:39 → M ED INP 15:13 → ENRESERV 15:28 → M PCU 16:28
PROVIDERS: ADMIT Internal Medicine; ATTEND Internal Medicine
DX: I13.0 Hypertensive heart and chronic kidney disease with heart failure and stage 1 through stage 4 chronic kidney disease, or unspecified chronic kidney disease (principal); J18.9 Pneumonia, unspecified organism; I50.33 Acute on chronic diastolic (congestive) heart failure; J96.20 Acute and chronic respiratory failure, unspecified whether with hypoxia or hypercapnia; N18.30 Chronic kidney disease, stage 3 unspecified; E11.40 Type 2 diabetes mellitus with diabetic neuropathy, unspecified; Z79.4 Long term (current) use of insulin; J43.9 Emphysema, unspecified; F17.210 Nicotine dependence, cigarettes, uncomplicated; I25.10 Atherosclerotic heart disease of native coronary artery without angina pectoris; G25.81 Restless legs syndrome; M10.9 Gout, unspecified; Z79.899 Other long term (current) drug therapy; Z79.82 Long term (current) use of aspirin; Z79.52 Long term (current) use of systemic steroids; F32.9 Major depressive disorder, single episode, unspecified; G47.33 Obstructive sleep apnea (adult) (pediatric); H40.9 Unspecified glaucoma; Z96.662 Presence of left artificial ankle joint; I27.20 Pulmonary hypertension, unspecified; R91.8 Other nonspecific abnormal finding of lung field

== ENCOUNTER → 2020-08-04 | Outpatient (CLI) | payer MEDICARE, MEDICAID ==
[~2020-08-04] MED LIST changes: +AZIT-12 PO; +NICO1DIS9 TOP; +POLYOPD OU
== END ==
LOC: M PT 13:02
PROVIDERS: ATTEND Internal Medicine
DX: M48.07 Spinal stenosis, lumbosacral region (principal)

== ENCOUNTER → 2020-08-20 | Outpatient (CLI) | payer MEDICARE, MEDICAID ==
[~2020-08-20] MED LIST changes: +ACET1TAB16 PO; +AUGM875T28 PO
[2020-08-20 13:44] LABS: CREATININE FOR GFR 1.2 MG/DL (0.55-1.30); FREE THYROXINE INDEX 2.2 % (1.3-4.8); GLOMERULAR FILTRATION RATE 46.8 (>39); THYROID STIMULATING HORMONE 1.87 uIU/ML (0.358-3.740)
== END ==
LOC: M LAB 12:24
PROVIDERS: ATTEND Physician Assistant
DX: H05.20 Unspecified exophthalmos (principal)

== ENCOUNTER 2020-08-23 17:15 | Emergency (ER) | payer MEDICARE, MEDICAID ==
[~2020-08-23] VITALS: Ht 154.9 cm; Wt 66.8 kg
[~2020-08-23 17:15] MED LIST changes: -ACET1TAB16 PO; -AUGM875T28 PO
[2020-08-23] MEDS ORDERED: ACET1TAB16 PO (17:44)
[2020-08-23 18:24] LABS: BASO % 0.2 % (0.0-1.0); EOS % 0.2 % (0.0-3.0); HEMATOCRIT 39.9 % (36.0-47.0); HEMOGLOBIN 11.9 g/dl (12.0-15.5); LYMPH # 1.2 10^3/uL (1.5-5.0); LYMPH % 8.1 % (24.0-44.0); MEAN CORPUSCULAR HEMOGLOBIN 23.4 pg (27.0-33.0); MEAN CORPUSCULAR HGB CONC 29.8 g/dl (32.0-36.5); MEAN CORPUSCULAR VOLUME 78.4 fl (80.0-96.0); MONO # 0.6 10^3/uL (0.0-0.8); MONO % 4.2 % (2.0-8.0); NEUTROPHILS # 12.8 10^3/uL (1.5-8.5); NEUTROPHILS % 86.8 % (36.0-66.0); PLATELET COUNT, AUTOMATED 205 10^3/uL (150-450); RED BLOOD COUNT 5.09 10^6/uL (4.00-5.40); WHITE BLOOD COUNT 14.8 10^3/uL (4.0-10.0)
--- NOTE | 2020-08-23 19:20 | REP ---
INDICATION: cough. COMPARISON: Comparison radiograph March 07, 2020. TECHNIQUE: Portable upright AP chest radiograph. FINDINGS: Moderate cardiac enlargement is observed. Pulmonary vascular and interstitial markings are increased. Fissural thickening is noted. No free pleural effusion is seen. No definite focal infiltrate. . IMPRESSION: Cardiomegaly. Vascular cephalization and congestion. CHF pattern. No definite focal infiltrate.. <Electronically signed by Kristopher Ludwig > 08/23/201915
--- NOTE | 2020-08-23 19:25 | REPVR ---
PROCEDURE INFORMATION: Exam: CT Abdomen And Pelvis Without Contrast Exam date and time: 08/23/2020 6:26 PM Age: 74 years old Clinical indication: Abdominal pain; Flank; Left; Additional info: Left flank pain with CVA tenderness TECHNIQUE: Imaging protocol: Computed tomography of the abdomen and pelvis without contrast. Radiation optimization: All CT scans at this facility use at least one of these dose optimization techniques: automated exposure control; mA and/or kV adjustment per patient size (includes targeted exams where dose is matched to clinical indication); or iterative reconstruction. COMPARISON: CT ABD/PEL W/IV CONTRAST ONLY 03/05/2020 1:02 PM FINDINGS: Liver: Normal. No mass. Gallbladder and bile ducts: Cholecystectomy clips. Pancreas: Normal. No ductal dilation. Spleen: Normal. No splenomegaly. Adrenal glands: Normal. No mass. Kidneys and ureters: Left perinephric stranding. Stomach and bowel: Diverticulosis of the colon. Appendix: No evidence of appendicitis. Intraperitoneal space: Unremarkable. No free air. No significant fluid collection. Vasculature: Atherosclerotic calcification of the abdominal aorta and bilateral iliac vessels. Lymph nodes: Unremarkable. No enlarged lymph nodes. Urinary bladder: Unremarkable as visualized. Reproductive: Unremarkable as visualized. Bones/joints: Posterior spinal fixation of L2, L3 and L4 vertebra. Soft tissues: Unremarkable. IMPRESSION: 1. No acute abdominal or pelvic abnormality. 2. Mild left perinephric stranding. Etiology inflammation/infection. Electronically signed by: Ben Galdamez On 08/23/2020 19:25:15 PM
[2020-08-23] MEDS ORDERED: MORPHINE 4 MG/ML 1ML VIAL/SYRINGE (J2270) IV ONE (21:10)
[2020-08-23] MEDS ORDERED: cefTRIAXone SOD 1 GM in D5W MINI-BAG PLUS 50 ML IV ONE (21:10)
[2020-08-23] MEDS ORDERED: ONDANSETRON 4MG/2ML VIAL IV ONE (21:10)
[2020-08-23] MEDS ORDERED: AUGM875T28 PO (21:56)
[2020-08-23 22:00] VITALS: BP 150/95
[2020-08-24] MEDS ORDERED: ASPI81TA26 PO (20:52)
== END 2020-08-23 22:20 | disposition home or self-care (01) ==
LOC: M ED 17:15
DX: N10 Acute pyelonephritis (principal); E11.9 Type 2 diabetes mellitus without complications; I51.7 Cardiomegaly; I50.9 Heart failure, unspecified; J44.9 Chronic obstructive pulmonary disease, unspecified; N28.1 Cyst of kidney, acquired; F17.200 Nicotine dependence, unspecified, uncomplicated; Z91.048 Other nonmedicinal substance allergy status; Z79.899 Other long term (current) drug therapy

== ENCOUNTER 2020-08-24 18:12 | Inpatient (IN) | payer MEDICARE, MEDICAID ==
[~2020-08-24] VITALS: Ht 154.9 cm; Wt 67.9 kg
[~2020-08-24 18:12] MED LIST changes: +ACET1TAB16 PO; +AUGM875T28 PO
[2020-08-24] MEDS ORDERED: NS 500 ML IV ONE (19:50)
[2020-08-24] MEDS ORDERED: ONDANSETRON 4MG/2ML VIAL IV ONE (19:50)
[2020-08-24] MEDS ORDERED: MORPHINE 4 MG/ML 1ML VIAL/SYRINGE (J2270) IV ONE (19:50)
[2020-08-24] MEDS ORDERED: cefTRIAXone SOD 1 GM in D5W MINI-BAG PLUS 50 ML IV ONE (20:00)
[2020-08-24 20:22] LABS: HEMATOCRIT 37.7 % (36.0-47.0); MEAN CORPUSCULAR HEMOGLOBIN 23.6 pg (27.0-33.0); MEAN CORPUSCULAR HGB CONC 29.2 g/dl (32.0-36.5); MEAN CORPUSCULAR VOLUME 80.7 fl (80.0-96.0); PLATELET COUNT, AUTOMATED 214 10^3/uL (150-450); RED BLOOD COUNT 4.67 10^6/uL (4.00-5.40)
--- NOTE | 2020-08-24 20:32 | REPVR ---
PROCEDURE INFORMATION: Exam: CT Head Without Contrast Exam date and time: 08/24/2020 8:00 PM Age: 74 years old Clinical indication: Injury or trauma; Fall; Blunt trauma (contusions or hematomas); With loss of consciousness; Additional info: Falls with head injuries and loc TECHNIQUE: Imaging protocol: Computed tomography of the head without contrast. Radiation optimization: All CT scans at this facility use at least one of these dose optimization techniques: automated exposure control; mA and/or kV adjustment per patient size (includes targeted exams where dose is matched to clinical indication); or iterative reconstruction. COMPARISON: CT Head without contrast 12/14/2018 12:55 AM FINDINGS: Brain: There are moderate periventricular and subcortical lucencies consistent with chronic microvascular ischemic changes. The javed-white differentiation is maintained. No hemorrhage. No edema. Cerebral ventricles: No ventriculomegaly. Bones/joints: Unremarkable. No acute fracture. Paranasal sinuses: Visualized sinuses are unremarkable. No fluid levels. Mastoid air cells: Visualized mastoid air cells are well aerated. Soft tissues: Unremarkable. IMPRESSION: No acute intracranial abnormality. Chronic microvascular ischemic changes. Electronically signed by: Ben Galdamez On 08/24/2020 20:32:06 PM
[2020-08-24 20:47] LABS: ALBUMIN 2.8 GM/DL (3.2-5.2); BILIRUBIN,TOTAL 0.2 MG/DL (0.2-1.0); CALCIUM LEVEL 7.8 MG/DL (8.8-10.2); CK-MB VALUE MASS 3.7 NG/ML (<3.6); CREATININE FOR GFR 1.51 MG/DL (0.55-1.30); GLOMERULAR FILTRATION RATE 35.9 (>39); MB/CK RELATIVE INDEX 3.43 (< OR =4); POTASSIUM SERUM 5.2 MEQ/L (3.5-5.1); TOTAL PROTEIN 6.3 GM/DL (6.4-8.2); TROPONIN I 0.03 NG/ML (< 0.10)
[2020-08-24] MEDS ORDERED: NS 1,000 ML IV SCH (20:48)
[2020-08-24 20:50] LABS: RSV AMPLIFICATION NEGATIVE (NEGATIVE)
[2020-08-24] MEDS ORDERED: DEXTROSE 50% 50 ML SYRINGE IV PRN (20:50)
[2020-08-24] MEDS ORDERED: MAALOX 30 ML SUSP *UDC PO PRN (20:50)
[2020-08-24] MEDS ORDERED: MOM 30ML SUSPENSION UDC PO PRN (20:50)
[2020-08-24] MEDS ORDERED: GLUCAGON INJ 1MG VIAL SC PRN (20:50)
[2020-08-24] MEDS ORDERED: GLUCOSE 4GM CHEW TABLET PO PRN (20:50)
[2020-08-24] MEDS ORDERED: ASPI81TA26 PO (20:52)
[2020-08-24] MEDS: LATANOPROST 0.005% OPHTH SOLN 2.5 ML OU SCH (21:00)
[2020-08-24 21:08] LABS: PHOSPHORUS LEVEL 3.3 MG/DL (2.5-4.9)
--- NOTE | 2020-08-24 21:35 | REPVR ---
PROCEDURE INFORMATION: Exam: XR Chest Exam date and time: 08/24/2020 9:23 PM Age: 74 years old Clinical indication: Shortness of breath; Additional info: SOB, hypoxia TECHNIQUE: Imaging protocol: XR of the chest Views: 1 view. COMPARISON: [place] PORTABLE CHEST X-RAY 08/23/2020 6:36 PM FINDINGS: Lungs: Increased pulmonary vascular and interstitial markings. No focal consolidations. Pleural spaces: Unremarkable. No pleural effusion. No pneumothorax. Heart/Mediastinum: Cardiomegaly. Bones/joints: Degenerative changes of the spine. IMPRESSION: Cardiomegaly with pulmonary vascular congestion. No significant change from prior study. Electronically signed by: Ben Galdamez On 08/24/2020 21:35:34 PM
[2020-08-24] MEDS: ACETAMINOPHEN TAB 650MG DOSE (2X325MG) PO PRN (22:00)
[2020-08-24] MEDS: HumaLOG INSULIN (NovoLOG) PER UNIT SC SCH (22:26)
[2020-08-24 23:20] VITALS: BP 161/79
[2020-08-24 23:30] VITALS: O2SAT 92
[2020-08-24 23:50] VITALS: BP 158/78
--- NOTE | 2020-08-24 23:58 | HPEPDOC ---
[facility] Medical History & Physical Date of Admission Aug 25, 2020 Date of Service: Aug 25, 2020 Other Provider Kurt Stanley MD Attending Physician: IBIS MCMULLEN MD History and Physical TIME OF SERVICE: 215am CHIEF COMPLAINT: weakness HISTORY OF PRESENT ILLNESS: The history was obtained from who saw the patient on August 23 and This 74 yr old F presented to the ER on August 23 w c/o L flank pain for 1 week and was diagnosed with pyelonephritis and sent home with augmentin; she was sent home but continued to feel weak passed out 2 times and hit her head, so she returned to the ER for evaluation. Prior to this the patient told that she was recently treated for a UTI had to switch abx because the infection was resistant to the abx. At the time of my evaluation the patient denied having dizziness, n/v/d, chest pain, or pain with urination. She had some abdominal pain and added that her back pain was chronic. 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 FAMILY HISTORY: Father: , 49, CHF Mother: , 72, CAD Sister: , 60s, liver cancer Sister: , 63, pulmonary HTN, COPD, DM Brother: , 56, GA Brother: , 78, CHF ALLERGIES: Please see below. HOME MEDICATIONS: Please see below. PHYSICAL EXAMINATION: Vital Signs Date Time Temp Pulse Resp B/P (MAP) Pulse Ox O2 Delivery O2 Flow Rate FiO2 08/24/20 18:25 97.3 74 18 132/69 (90) 92 Room Air 2.0 GENERAL APPEARANCE: well nourished and developed / NAD HEENT: EOMI / NC in place CARDIOVASCULAR: RRR/S3 LUNGS: Rhochi ABDOMEN: obese /soft &slightly tender w palpation MUSCULOSKELETAL: BRIAN x 4 INTEGUMENT: not flushed or diaphoretic NEUROLOGICAL: CN 2-12 grossly intact / speech not dysarthric PSYCHIATRIC: A&Ox 3 / able to understand and follow all commands LABORATORY DATA: 08/24/20 19:59 Nucleated Red Blood Cells % (auto) 0.0, Anion Gap 2L, Glomerular Filtration Rate 35.9L, Lactic Acid Level 1.1, Calcium Level 7.8L, Phosphorus Level 3.3, Total Bilirubin 0.2, Aspartate Amino Transf (AST/SGOT) 19, Alanine Aminotransferase (ALT/SGPT) 20, Alkaline Phosphatase 82, Total Creatine Kinase 108, Creatine Kinase MB 3.7H, Creatine Kinase MB Relative Index 3.43, Troponin I 0.03, Total Protein 6.3L, Albumin 2.8L, Albumin/Globulin Ratio 0.8L 08/24/20 22:25: Bedside Glucose (Misc Panel) 249H IMAGING: CT head IMPRESSION: No acute intracranial abnormality. Chronic microvascular ischemic changes. Chest xray IMPRESSION: Cardiomegaly with pulmonary vascular congestion. No significant change from prior study. MICROBIOLOGY: Coronavirus (COVID-19)(PCR) NEGATIVE, Influenza Type A (RT-PCR) NEGATIVE, Influenza Type B (RT-PCR) NEGATIVE, Respiratory Syncytial Virus (PCR) NEGATIVE ASSESSMENT is a 74 yr old w a hx of UTIs, HTN, HFpEF, COPD, Chronic O2 dep re spiratory failure, CAD, DM, gout, chronic back pain w hx of laminectomies who was diagnosed w pyelonephritis on August 23 and returned after having 2 syncopal episodes. PLAN: 1 Syncope/Transient Loss of Consciousness Cause TBD CT head, Troponin &, EKG unrevealing Plan: admit to medical floor / f/u orthostats & finger sticks to r/o hypoglycemia / fall precautions / hold famotidine, and melatonin which can cause sedation / f/u A1C if to low she may be having hypoglycemia 2 SREE Possibly cardiorenal Plan: f/u Ulytes for FENa & Renal US 3 Hyperkalemia 2/2 SREE Plan: f/u repeat K 4 Partially decompensated HFpEF/ HTN Partially decompensated Plan: f/u Is and Os /daily weights / hold torsemide 40 mg daily & start Lasix 60 mg IV daily / c/w Spironolactone 5 Abnormal UTI She only has + Leuk esterase Plan: hold off additional abx / f/u blood cx 6 O2 and steroid dependent COPD with Chronic hypoxic hypercapneic respiratory failure Plan: c/w supplemental O2 / c/w inhalers & current dose of prednisone 7 IDDM w neuropathy Plan: diabetic diet / f/u accuchecks / hypoglycemia protocol / sliding scale insulin / hold oral anti-glycemic / f/u A1C (target A1C is 7.1 to 8.5% bc she is frail and elderly) / decrease long acting insulin from 90 to 45 units for now / Pregabalin 8 Essential HTN Plan: Amlodipine 9 Chronic CAD / DLP Plan: Aspirin & Rosuvastatin 10 Chronic back pain Plan Hydrocodone/Acetaminophen 11. Gout Plan: Allopurinol 12. RLS Plan: Ropinirole DVT px w lovenox Dispo: home after at least 2 midnights stay Home Medications Scheduled Allopurinol (Zyloprim) 300 Mg Tab, 300 MG PO DAILY Amlodipine Besylate (Amlodipine Besylate) 10 Mg Tablet, 10 MG PO DAILY Aspirin (Aspirin EC) 81 Mg Tablet.dr, 81 MG PO QHS Calcitriol (Calcitriol) 0.25 Mcg Cap, 0.25 MCG PO 5XW MON-FRI Cholecalciferol (Vitamin D3) (Vitamin D3) 125 Mcg Capsule, 5,000 MCG PO DAILY Duloxetine Hcl (Duloxetine HCl) 60 Mg Cap, 60 MG PO BID Esomeprazole Magnesium (Nexium) 40 Mg Capsule.dr, 40 MG PO DAILY Famotidine (Famotidine) 20 Mg Tablet, 20 MG PO QHS Insulin NPH Human Isophane (Humulin N Kwikpen) 100 Unit/1 Ml Insuln.pen, 90 UNITS SQ QAM Latanoprost (Xalatan) 0.005% 2.5ML Drops, 1 DROP OU QHS Melatonin (Melatonin) 5 Mg Tablet, 10 MG PO QHS Metolazone (Metolazone) 2.5 Mg Tablet, 2.5 MG PO 3XW MON/WED/FRI Prednisone (Prednisone) 10 Mg Tab, 10 MG PO DAILY Pregabalin (Lyrica) 200 Mg Cap, 200 MG PO BID Ropinirole HCl (Requip) 0.25 Mg Tablet, 0.5 MG PO QHS Rosuvastatin Calcium (Crestor) 20 Mg Tab, 20 MG PO QHS Spironolactone (Spironolactone) 25 Mg Tab, 25 MG PO BID Torsemide (Torsemide) 20 Mg Tablet, 40 MG PO BID TAKES AM/1600 Umeclidinium [place] (Incruse Ellipta) 62.5 Mcg Blst.w.dev, 1 PUFF INH DAILY Scheduled PRN Albuterol Sulf (Albuterol Sulfate) 2.5 Mg/3 Ml Vial.neb, 2.5 MG INH Q4H PRN for SHORTNESS OF BREATH Albuterol Sulfate (Ventolin Hfa) 108 Mcg/Act Aer, 2 PUFFS INH Q4H PRN for SHORTNESS OF BREATH Hydrocodone/Acetaminophen (Hydrocodone-Acetamin 10-325 mg) 1 Tab Tab, 1 TAB PO Q6H PRN for PAIN Nitroglycerin (Nitrostat) 0.4 Mg Subl, 0.4 MG SL NITRO PRN for CHEST PAIN Nystatin (Nyamyc) 15 Gm Powder, 1 DOSE TOP BID PRN for REDNESS/IRRITATION APPLY TO UNDER BREASTS AND GROIN Polyvinyl Alcohol (Artificial Tears) 15 Ml Drops, 1 DROP OU QID PRN for DRY EYES Allergies Coded Allergies: TAPE (Verified Allergy, Unknown, 12/13/18) A-FIB/CHADSVASC A-FIB History Current/History of A-Fib/PAF?: No Current PO Anticoag Therapy: No IBIS MCMULLEN MD Aug 24, 2020 23:58
[2020-08-25] VITALS (9 sets, daily range): BP systolic 132–145; BP diastolic 66–70; O2SAT 94
[2020-08-25] MEDS: MORPHINE 4 MG/ML 1ML VIAL/SYRINGE (J2270) IV PRN ×3 (00:30→10:45)
[2020-08-25] MEDS ORDERED: NITROGLYCERIN 0.4 MG SUBL TABLET SL PRN (01:35)
[2020-08-25] MEDS ORDERED: NYSTATIN 100,000 UNITS/GM TOPICAL PWD 15 GM TOP PRN (01:35)
[2020-08-25] MEDS ORDERED: POLYVINYL ALCOHOL OPHTH SOLN 15 ML(LIQUITEARS) OU PRN (01:35)
[2020-08-25] MEDS ORDERED: ALBUTEROL 90 MCG/ACT 8GM HFA INHALER INH PRN (01:35)
[2020-08-25] MEDS ORDERED: ALBUTEROL SULFATE 2.5 MG/0.5 ML INH NEB SOLN INH PRN (01:35)
[2020-08-25] MEDS ORDERED: TORSEMIDE 20 MG TAB PO SCH (01:35)
[2020-08-25] MEDS: ACETAMINOPHEN TAB 650MG DOSE (2X325MG) PO PRN ×2 (02:08→09:19)
[2020-08-25] MEDS: rOPINIRole 0.25 MG TAB(REQUIP) PO SCH ×2 (02:09→21:17)
[2020-08-25] MEDS: SPIRONOLACTONE 25 MG TAB PO SCH ×3 (02:09→21:18)
[2020-08-25] MEDS: PREGABALIN 100 MG CAP (LYRICA) PO SCH ×3 (02:09→21:18)
[2020-08-25] MEDS: ASPIRIN 81MG ENTERIC TABLET PO SCH ×2 (02:09→21:18)
[2020-08-25] MEDS: DULoxetine 30 MG CAP (CYMBALTA) PO SCH ×3 (02:09→21:16)
[2020-08-25] MEDS ORDERED: LevoFLOXacin 500 MG TABLET PO SCH (06:00)
[2020-08-25 06:50] LABS: HEMATOCRIT 35.8 % (36.0-47.0); HEMOGLOBIN 10.5 g/dl (12.0-15.5); MEAN CORPUSCULAR HEMOGLOBIN 23.6 pg (27.0-33.0); MEAN CORPUSCULAR HGB CONC 29.3 g/dl (32.0-36.5); MEAN CORPUSCULAR VOLUME 80.4 fl (80.0-96.0); PLATELET COUNT, AUTOMATED 218 10^3/uL (150-450); RED BLOOD COUNT 4.45 10^6/uL (4.00-5.40); WHITE BLOOD COUNT 13.5 10^3/uL (4.0-10.0)
[2020-08-25] MEDS ORDERED: NS 1,000 ML IV SCH (06:55)
[2020-08-25 07:08] LABS: HEMOGLOBIN A1c 7.7 %
[2020-08-25 07:18] LABS: CREATININE FOR GFR 1.28 MG/DL (0.55-1.30); GLOMERULAR FILTRATION RATE 43.4 (>39); POTASSIUM SERUM 4.1 MEQ/L (3.5-5.1)
[2020-08-25] MEDS: HumaLOG INSULIN (NovoLOG) PER UNIT SC SCH ×4 (07:26→21:26)
[2020-08-25] MEDS: IPRATROPIUM HFA INHALER 12.9 GRAMS (ATROVENT HFA) INH SCH ×2 (07:33→20:01)
[2020-08-25 07:51] LABS: TROPONIN I 0.03 NG/ML (< 0.10)
[2020-08-25] MEDS ORDERED: HumuLIN N INSULIN (NovoLIN N) PER UNIT SQ SCH (09:00)
[2020-08-25] MEDS: predniSONE 10 MG TAB PO SCH (09:04)
[2020-08-25] MEDS: VITAMIN D 1,000 INTERNATIONAL UNITS TABLET PO SCH (09:05)
[2020-08-25] MEDS: metOLazone 2.5 MG TAB PO SCH (09:05)
[2020-08-25] MEDS: FUROSEMIDE 100MG/10ML VIAL (J1940) IV SCH ×2 (09:06→17:20)
[2020-08-25] MEDS: ENOXAPARIN 30MG/0.3ML SYRINGE (J1650 PER 10MG) SC SCH (09:06)
[2020-08-25] MEDS: PANTOPRAZOLE 40MG TAB (PROTONIX) PO SCH (09:06)
[2020-08-25] MEDS: CALCITRIOL 0.25 MCG CAP (S0169) PO SCH (09:06)
[2020-08-25] MEDS: allopurinoL 300 MG TAB PO SCH (09:06)
--- NOTE | 2020-08-25 11:11 | REP ---
INDICATION: leslye. COMPARISON: Comparison CT study August 23, 2020.. TECHNIQUE: Urinary tract sonography. FINDINGS: Scanning at the level of the urinary bladder shows no abnormality. Renal cortical echogenicity pattern is normal bilaterally and contours are smooth. There is no evidence hydronephrosis on either side. No mass is seen. Bilateral small renal cysts are observed. The largest on the right is 0.9 cm in the largest on the left 0.8 cm.. The right kidney measures 10.6 x 4.7 x 4.9 cm. Left renal dimensions are 10.4 x 4.9 x 5.5 cm. IMPRESSION: Small bilateral renal cortical cysts. Otherwise negative urinary tract sonography.. <Electronically signed by Kristopher Ludwig > 08/25/20 [id number]
[2020-08-25] MEDS: ANEXSIA, NORCO 7.5MG/325MG TABLET(HYDROCODONE/APAP) PO PRN ×2 (11:40→21:18)
--- NOTE | 2020-08-25 17:15 | IPNPDOC ---
Text Note Date of Service The patient was seen on 08/25/20. NOTE SUBJECTIVE: Patient is reclined in the bed. She is awake, alert, and appears to be a good historian. Apparently she has had multiple episodes of syncope while at home. She reports that these episodes come on suddenly and she does not apparently have any sort of prodrome or warning signs. She has not had any such episodes since her admission. This morning she was found to be hypoglycemic and lethargic, she was given an amp of D50 and seemed to recover fairly well. Her NPH insulin is discontinued at this time, and we will proceed with only AC & HS dosing of insulin without any long-acting, as it is suspected that her syncope may be secondary to hypoglycemic episodes, and her insulin dose at home is most likely too high. PHYSICAL EXAMINATION: GENERAL APPEARANCE: well nourished and developed / NAD HEENT: EOMI / NC in place. Exophthalmos noted, she indicates that she has been followed by ophthalmology for the past few months regarding this. CARDIOVASCULAR: RRR/S3 LUNGS: Clear to auscultation ABDOMEN: obese /soft &slightly tender w palpation INTEGUMENT: not flushed or diaphoretic NEUROLOGICAL: CN 2-12 grossly intact / speech not dysarthric PSYCHIATRIC: A&Ox 3 / able to understand and follow all commands ASSESSMENT is a 74 yr old w a hx of UTIs, HTN, HFpEF, COPD, Chronic O2 dep respiratory failure, CAD, DM, gout, chronic back pain w hx of laminectomies who was diagnosed w pyelonephritis on August 23 and returned after having 2 syncopal episodes PLAN: 1 Syncope/Transient Loss of Consciousness Cause TBD CT head, Troponin &, EKG unrevealing -Most likely etiology of this point is hypoglycemia. NPH insulin has been discontinued. Continue with AC & HS dosing only for now to determine insulin requirements. Will likely reinitiate with a long-acting insulin such as Levemir and continue forward with basal bolus dosing as this has been found to be more effective than using NPH. Orthostatic vital signs were within normal limits. Will continue to hold medications that can cause sedation. 2 SREE 3 Recent Pyelonephritis Given fluid bolus on admission but in light of the fact that she appears to be partially decompensated heart failure (perhaps cardiorenal), we will be cautious with fluid administration. This does now appear to be resolving/improving. Continue to monitor. 4 Hyperkalemia Plan: f/u repeat K & supplement as necessary 5 Partially decompensated HFpEF/ HTN Partially decompensated Plan: f/u Is and Os /daily weights / Spironolactone / hold torsemide 40 mg daily. Continue Lasix 60 mg IV daily 6 Abnormal UTI (likely asymptomatic bacteriuria in the elderly) She only has + Leuk esterase Plan: hold off additional abx / f/u blood cx 7 Emphysematous COPD, steroid and 2L o2 dependent / Chronic Hypoxic hypercapneic respiratory Failure on 2liters home oxygen Plan: supplemental O2 / c/w inhalers 8 IDDM w neuropathy Plan: diabetic diet / f/u accuchecks / hypoglycemia protocol / sliding scale insulin / hold oral anti-glycemic / f/u A1C (target A1C is 7.1 to 8.5% bc she is frail and eldery / Pregabalin. Long-acting NPH insulin has been discontinued at this time as per the plan above. 9 HTN Plan: Amlodipine 10 CAD / DLP Plan: Aspirin & Rosuvastatin 11 Chronic back pain Plan Hydrocodone/Acetaminophen 12. Gout Plan: Allopurinol 13. RLS Plan: Ropinirole DVT px w lovenox VS,Fishbone, I+O VS, Fishbone, I+O Laboratory Tests 08/24/20 19:59 08/25/20 06:38 Vital Signs Date Time Temp Pulse Resp B/P (MAP) Pulse Ox O2 Delivery O2 Flow Rate FiO2 08/25/20 14:19 75 141/66 (91) 76 138/66 (90) 08/25/20 14:00 98.1 12 89 Nasal Cannula 3.5 I&O- Last 24 Hours up to 6 AM 08/25/20 06:00 Intake Total 600 ml Output Total 800 ml Balance -200 ml BAUTISTA GRAHAM DO Aug 25, 2020 17:15
--- NOTE | 2020-08-25 19:55 | ECGEPIP ---
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
[2020-08-25] MEDS: LATANOPROST 0.005% OPHTH SOLN 2.5 ML OU SCH (21:16)
[2020-08-25 21:21] LABS: CREATININE, URINE 27.6 MG/DL
[2020-08-26] MEDS: ACETAMINOPHEN TAB 650MG DOSE (2X325MG) PO PRN (01:16)
[2020-08-26 02:08] VITALS: O2SAT 92
[2020-08-26 06:00] VITALS: BP 142/70
[2020-08-26 07:22] LABS: HEMATOCRIT 37.2 % (36.0-47.0); MEAN CORPUSCULAR HEMOGLOBIN 23.3 pg (27.0-33.0); MEAN CORPUSCULAR HGB CONC 29.6 g/dl (32.0-36.5); MEAN CORPUSCULAR VOLUME 78.6 fl (80.0-96.0); PLATELET COUNT, AUTOMATED 237 10^3/uL (150-450); RED BLOOD COUNT 4.73 10^6/uL (4.00-5.40); WHITE BLOOD COUNT 11.8 10^3/uL (4.0-10.0)
[2020-08-26 07:45] LABS: ALBUMIN 2.7 GM/DL (3.2-5.2); CREATININE FOR GFR 1.2 MG/DL (0.55-1.30); GLOMERULAR FILTRATION RATE 46.8 (>39); PHOSPHORUS LEVEL 2.7 MG/DL (2.5-4.9); POTASSIUM SERUM 3.9 MEQ/L (3.5-5.1)
[2020-08-26] MEDS: IPRATROPIUM HFA INHALER 12.9 GRAMS (ATROVENT HFA) INH SCH ×2 (07:56→19:36)
[2020-08-26] MEDS: HumaLOG INSULIN (NovoLOG) PER UNIT SC SCH ×4 (08:09→21:37)
[2020-08-26] MEDS: PREGABALIN 100 MG CAP (LYRICA) PO SCH ×2 (08:10→21:37)
[2020-08-26] MEDS: ANEXSIA, NORCO 7.5MG/325MG TABLET(HYDROCODONE/APAP) PO PRN (08:11)
[2020-08-26 09:30] VITALS: BP 167/79
[2020-08-26] MEDS: PANTOPRAZOLE 40MG TAB (PROTONIX) PO SCH (09:46)
[2020-08-26] MEDS: DULoxetine 30 MG CAP (CYMBALTA) PO SCH ×2 (09:47→21:36)
[2020-08-26] MEDS: VITAMIN D 1,000 INTERNATIONAL UNITS TABLET PO SCH (09:47)
[2020-08-26] MEDS: predniSONE 10 MG TAB PO SCH (09:48)
[2020-08-26] MEDS: CALCITRIOL 0.25 MCG CAP (S0169) PO SCH (09:48)
[2020-08-26] MEDS: allopurinoL 300 MG TAB PO SCH (09:48)
[2020-08-26] MEDS: SPIRONOLACTONE 25 MG TAB PO SCH ×2 (09:49→21:37)
[2020-08-26] MEDS: ENOXAPARIN 30MG/0.3ML SYRINGE (J1650 PER 10MG) SC SCH (09:51)
[2020-08-26] MEDS: FUROSEMIDE 100MG/10ML VIAL (J1940) IV SCH ×2 (09:52→17:00)
[2020-08-26] MEDS ORDERED: cefTRIAXone SOD 1 GM in D5W MINI-BAG PLUS 50 ML IV SCH (11:00)
[2020-08-26] MEDS: ACETAMINOPHEN 500 MG TAB PO SCH ×2 (11:29→17:02)
--- NOTE | 2020-08-26 11:39 | IPN ---
PROGRESS NOTE DATE: 08/26/2020 SUBJECTIVE: The patient complains of left-sided flank pain without fever or chills. No dysuria, urgency, or frequency. No shortness of breath, chest pain, pressure, tightness, lightheadedness, or dizziness. OBJECTIVE: VITAL SIGNS: Temperature 98.4, pulse 64, respiratory rate 20, blood pressure 142/70, 91% on 3 liters nasal cannula. GENERAL: Awake, alert, oriented, and answering questions appropriately. HEENT: Anicteric. No jaundice. No use of respiratory accessory muscles. Exophthalmos noted. Moist mucous membranes. LUNGS: Clear to auscultation. No wheezing or rales. HEART: S1, S2. Sinus rhythm. ABDOMEN: Soft, nontender, nondistended, and obese. Positive bowel sounds x4 quadrants. EXTREMITIES: No cyanosis or clubbing. LABORATORY DATA: Reviewed. Input 940, output 2500, negative 1560 overnight. Current weight 66.8 kg. ASSESSMENT AND PLAN: This 74-year-old admitted on 08/24 with history of chronic obstructive pulmonary disease (COPD) on chronic O2 at 3 liters, hypoxic respiratory failure, coronary artery disease (CAD), diabetes, chronic back pain with laminectomy, history of urinary tract infections (UTIs), diastolic heart failure, hypertension, diagnosed with pyelonephritis 08/23, and with two syncopal episodes at home. IMPRESSION: 1. Syncope. Most likely secondary to hypoglycemia. NPH insulin has been discontinued. Echo is still pending. On a consistent carbohydrate diet, insulin on sliding scale, and hyperglycemic protocol. 2. Acute kidney injury in the setting of recent pyelonephritis. The patient is currently on intravenous (IV) antibiotics. Creatinine is back to baseline normal. Avoid nephrotoxins and renally dose all medications. 3. Decompensated diastolic heart failure currently on Spironolactone and Lasix with negative balance currently. Avoid nephrotoxins. Renal function is back to baseline. Repeat chest x-ray today. 4. Pyelonephritis. Blood culture is negative. Afebrile. Urine culture on 08/23 was contaminated. A 08/23 CT abdomen and pelvis shows left-sided perinephric stranding. Continued on ceftriaxone. 5. Diastolic heart failure currently on IV Lasix and has been net negative balance. Continue with Lasix for now. Recheck a chest x-ray and if negative, resume home dose of Lasix once the patient's infection is stable. 6. Chronic obstructive pulmonary disease (COPD) compensated on chronic prednisone, oxygen, and nebulizer treatments. MTDD
[2020-08-26] MEDS: oxyCODONE 5MG TAB PO PRN ×3 (12:45→21:36)
[2020-08-26 14:00] VITALS: BP 163/76
[2020-08-26] MEDS: rOPINIRole 0.25 MG TAB(REQUIP) PO SCH (21:36)
[2020-08-26] MEDS: LATANOPROST 0.005% OPHTH SOLN 2.5 ML OU SCH (21:36)
[2020-08-26] MEDS: ASPIRIN 81MG ENTERIC TABLET PO SCH (21:37)
[2020-08-26 22:00] VITALS: BP 139/73
[2020-08-27] MEDS: oxyCODONE 5MG TAB PO PRN ×4 (03:53→17:32)
[2020-08-27] MEDS: ACETAMINOPHEN 500 MG TAB PO SCH ×4 (05:32→17:32)
[2020-08-27 06:00] VITALS: BP 178/88
[2020-08-27 06:55] LABS: HEMATOCRIT 40.5 % (36.0-47.0); HEMOGLOBIN 11.9 g/dl (12.0-15.5); MEAN CORPUSCULAR HGB CONC 29.4 g/dl (32.0-36.5); MEAN CORPUSCULAR VOLUME 78.3 fl (80.0-96.0); PLATELET COUNT, AUTOMATED 235 10^3/uL (150-450); RED BLOOD COUNT 5.17 10^6/uL (4.00-5.40); WHITE BLOOD COUNT 11.8 10^3/uL (4.0-10.0)
[2020-08-27 07:17] LABS: ALBUMIN 2.8 GM/DL (3.2-5.2); CALCIUM LEVEL 9.2 MG/DL (8.8-10.2); CREATININE FOR GFR 1.11 MG/DL (0.55-1.30); GLOMERULAR FILTRATION RATE 51.2 (>39); PHOSPHORUS LEVEL 2.2 MG/DL (2.5-4.9)
[2020-08-27] MEDS: IPRATROPIUM HFA INHALER 12.9 GRAMS (ATROVENT HFA) INH SCH (07:54)
[2020-08-27] MEDS: FUROSEMIDE 100MG/10ML VIAL (J1940) IV SCH ×2 (08:10→17:31)
[2020-08-27] MEDS: VITAMIN D 1,000 INTERNATIONAL UNITS TABLET PO SCH (08:10)
[2020-08-27 08:11] VITALS: BP 148/84
[2020-08-27] MEDS: allopurinoL 300 MG TAB PO SCH (08:11)
[2020-08-27] MEDS: PREGABALIN 100 MG CAP (LYRICA) PO SCH (08:11)
[2020-08-27] MEDS: CALCITRIOL 0.25 MCG CAP (S0169) PO SCH (08:11)
[2020-08-27] MEDS: DULoxetine 30 MG CAP (CYMBALTA) PO SCH (08:11)
[2020-08-27] MEDS: PANTOPRAZOLE 40MG TAB (PROTONIX) PO SCH (08:11)
[2020-08-27] MEDS: predniSONE 10 MG TAB PO SCH (08:11)
[2020-08-27] MEDS: SPIRONOLACTONE 25 MG TAB PO SCH (08:11)
[2020-08-27] MEDS: ENOXAPARIN 30MG/0.3ML SYRINGE (J1650 PER 10MG) SC SCH (08:12)
[2020-08-27] MEDS: metOLazone 2.5 MG TAB PO SCH (08:12)
[2020-08-27] MEDS: HumaLOG INSULIN (NovoLOG) PER UNIT SC SCH ×3 (08:13→17:30)
[2020-08-27] MEDS ORDERED: BACI1CAP PO (08:53)
[2020-08-27] MEDS ORDERED: LEVO750T13 PO (08:53)
[2020-08-27] MEDS ORDERED: LINEZOLID 600MG TABLET (ZYVOX) PO ONE (10:45)
[2020-08-27] MEDS ORDERED: FLUC10TA PO (11:07)
--- NOTE | 2020-08-27 11:11 | REP ---
INDICATION: sob COMPARISON: 08/24/2020 TECHNIQUE: Portable AP view of the chest FINDINGS: The mediastinum and cardiac silhouette are stable and cardiomegaly is again appreciated along with findings to suggest pulmonary vascular congestion/interstitial edema. No focal consolidation. No obvious effusion. No pneumothorax. Skeletal structures stable. IMPRESSION: Stable cardiomegaly and findings to suggest pulmonary vascular congestion/interstitial edema. No focal consolidation or effusion identified. <Electronically signed by Jose Briggs > 08/27/20 1101
--- NOTE | 2020-08-27 11:13 | DS.PDOC ---
Discharge Summary General Date of Admission Aug 24, 2020 at 20:48 Date of Discharge 08/27/20 Discharge Summary please have community health outreach worker call [employer] at [phone] to stat transcribed discharge summary by Dr. Kimball if needed urgently. Vital Signs/I&Os Vital Signs Date Time Temp Pulse Resp B/P (MAP) Pulse Ox O2 Delivery O2 Flow Rate FiO2 08/27/20 08:12 18 08/27/20 08:11 72 148/84 08/27/20 06:00 97.6 95 Nasal Cannula 2.5 I&O- Last 24 Hours up to 6 AM 08/27/20 05:59 Intake Total 1940 ml Output Total 1650 ml Balance 290 ml Laboratory Data Labs 24H Laboratory Tests 2 08/26/20 11:19: Urine Color STRAW, Urine Appearance CLEAR, Urine pH 7.0, Urine Specific [place] 1.008, Urine Protein 1+H, Urine Glucose (UA) NEGATIVE, Urine Ketones NEGATIVE, Urine Blood NEGATIVE, Urine Nitrite NEGATIVE, Urine Bilirubin NEGATIVE, Urine Urobilinogen 0.2, Urine Leukocyte Esterase 1+H, Urine WBC (Auto) 3, Urine RBC (Auto) 5H, Urine Hyaline Casts (Auto) 0, Urine Bacteria (Auto) 1+H, Urine Squamous Epithelial Cells 3, Urine Sperm (Auto) 08/26/20 12:16: Bedside Glucose (Misc Panel) 162H 08/26/20 16:38: Bedside Glucose (Misc Panel) 245H 08/26/20 20:01: Bedside Glucose (Misc Panel) 287H 08/27/20 06:28: Nucleated Red Blood Cells % (auto) 0.0, Anion Gap 2L, Glomerular Filtration Rate 51.2, Calcium Level 9.2, Phosphorus Level 2.2L, Albumin 2.8L CBC/BMP Laboratory Tests 08/27/20 06:28 FSBS Laboratory Tests Test 08/26/20 12:16 08/26/20 16:38 08/26/20 20:01 Range/Units Bedside Glucose (Misc Panel) 162 245 287 83-110 MG/DL Microbiology Microbiology 08/26/20 Urine Culture - Final, Complete Yeast Like Organism 08/24/20 Blood Culture - Preliminary, Resulted Discharge Medications Scheduled Allopurinol (Zyloprim) 300 Mg Tab, 300 MG PO DAILY, (Reported) Amlodipine Besylate (Amlodipine Besylate) 10 Mg Tablet, 10 MG PO DAILY, (Reported) Aspirin (Aspirin EC) 81 Mg Tablet.dr, 81 MG PO QHS, (Reported) Bacillus Coagulans (Bacid with Lactospore) 1 Each Capsule, 1 CAP PO WM Calcitriol (Calcitriol) 0.25 Mcg Cap, 0.25 MCG PO 5XW, (Reported) MON-FRI Cholecalciferol (Vitamin D3) (Vitamin D3) 125 Mcg Capsule, 5,000 MCG PO DAILY, (Reported) Duloxetine Hcl (Duloxetine HCl) 60 Mg Cap, 60 MG PO BID, (Reported) Esomeprazole Magnesium (Nexium) 40 Mg Capsule.dr, 40 MG PO DAILY, (Reported) Famotidine (Famotidine) 20 Mg Tablet, 20 MG PO QHS, (Reported) Fluconazole (Diflucan) 100 Mg Tablet, 100 MG PO DAILY for yeast infection Insulin NPH Human Isophane (Humulin N Kwikpen) 100 Unit/1 Ml Insuln.pen, 90 UNITS SQ QAM, (Reported) Latanoprost (Xalatan) 0.005% 2.5ML Drops, 1 DROP OU QHS, (Reported) Melatonin (Melatonin) 5 Mg Tablet, 10 MG PO QHS, (Reported) Metolazone (Metolazone) 2.5 Mg Tablet, 2.5 MG PO 3XW, (Reported) TUE/TUE/FRI Prednisone (Prednisone) 10 Mg Tab, 10 MG PO DAILY, (Reported) Pregabalin (Lyrica) 200 Mg Cap, 200 MG PO BID, (Reported) Ropinirole HCl (Requip) 0.25 Mg Tablet, 0.5 MG PO QHS, (Reported) Rosuvastatin Calcium (Crestor) 20 Mg Tab, 20 MG PO QHS, (Reported) Spironolactone (Spironolactone) 25 Mg Tab, 25 MG PO BID, (Reported) Torsemide (Torsemide) 20 Mg Tablet, 40 MG PO BID, (Reported) TAKES AM/1600 Umeclidinium [place] (Incruse Ellipta) 62.5 Mcg Blst.w.dev, 1 PUFF INH DAILY, (Reported) Scheduled PRN Albuterol Sulf (Albuterol Sulfate) 2.5 Mg/3 Ml Vial.neb, 2.5 MG INH Q4H PRN for SHORTNESS OF BREATH, (Reported) Albuterol Sulfate (Ventolin Hfa) 108 Mcg/Act Aer, 2 PUFFS INH Q4H PRN for SHORTNESS OF BREATH, (Reported) Hydrocodone/Acetaminophen (Hydrocodone-Acetamin 10-325 mg) 1 Tab Tab, 1 TAB PO Q6H PRN for PAIN, (Reported) Nitroglycerin (Nitrostat) 0.4 Mg Subl, 0.4 MG SL NITRO PRN for CHEST PAIN, (Reported) Nystatin (Nyamyc) 15 Gm Powder, 1 DOSE TOP BID PRN for REDNESS/IRRITATION, (Reported) APPLY TO UNDER BREASTS AND GROIN Polyvinyl Alcohol (Artificial Tears) 15 Ml Drops, 1 DROP OU QID PRN for DRY EYES, (Reported) Allergies Coded Allergies: TAPE (Verified Allergy, Unknown, 12/13/18) JENNIFER KIMBALL MD Aug 27, 2020 11:13
[2020-08-27] MEDS ORDERED: VANCOMYCIN HCL 1,000 MG, VIAL MATE ADAPTER 1 EACH in NS 250 ML IV ONE (11:20)
--- NOTE | 2020-08-27 11:42 | DSES ---
DISCHARGE SUMMARY DATE OF ADMISSION: 08/24/2020 DATE OF DISCHARGE: 08/27/2020 PRIMARY DISCHARGE DIAGNOSIS: 1. Syncopal episode due to hypoglycemia. 2. Recent pyelonephritis. Urine culture showing yeast in the urine. 3. Congestive heart failure, diastolic dysfunction, acute exacerbation. 4. Uncontrolled hypertension. 5. Chronic kidney disease Stage III. 6. Possible contaminated blood culture s/p 1 dose of vancomycin. DISCHARGE INSTRUCTIONS: Immediate follow-up with primary care physician within five days of discharge, 2 liter fluid restriction, call your dwarf tree grower if more than 2 pound weight gain. HOSPITAL COURSE: This is a 74-year-old female with a history of diastolic congestive heart failure, chronic kidney disease Stage III, admitted on 08/24/2020 due to complaints of generalized weakness. Patient was seen in the Emergency Room with complaints of left sided flank pain on 08/23/2020, diagnosed with pyelonephritis and sent home with Augmentin, passed out twice at home and hit her head. Prior to this, the patient had been recently treated for a UTI but was resistant to prior antibiotic. She was found to be hypoglycemic as a cause for her syncopal episode. Repeat urine culture grew out yeast. She was treated with two days of IV Ceftriaxone and Diflucan on discharge. Renal ultrasound was negative on 08/24/2020 without signs or pyelonephritis or perinephric stranding. The patient had no fevers or chills. She developed shortness of breath. Chest x-ray showed increase in vascular distribution. She was treated with intravenous Lasix 60 mg IV b.i.d. with resolution of her shortness of breath but remained hypoxic with ambulation but quickly recovers after 1 minute back to saturations of 95%. The patient's discharge weight is 67.9 with previous weight of 71.36 kilos back in February 2020. The patient was adamant about being discharged and was in stable condition, did well physically with ambulation with Physical Therapy. She had episodes of uncontrolled blood pressure and was given Norvasc 10 mg. Patient was instructed to keep to a 2 liter fluid restriction. Continue with daily weights and to call our dwarf tree grower if more than 2 pound weight gain at home. Blood culture grew out gram positive cocci. She was given one dose of Zyvox, most likely a contamination. Repeat blood cultures, two sets were obtained as well. Since the urine culture grew out yeast she was given Diflucan. No organisms were seen on the urine culture obtained recently. A 08/23/2020 urine culture was contaminated. LABORATORY DATA ON DISCHARGE: White count 11.8, previous white count was 14.8 on 08/23/2020, hemoglobin 11.9, hematocrit of 40, platelet count 235,000, sodium 137, potassium 4, chloride 98, bicarbonate 37, BUN 28, creatinine 1.1, glucose of 202. Phosphorus of 2.2, albumin of 2.8. Microbiology: Urine culture on 08/26 showed yeast. Blood culture on 08/24 showed gram positive cocci in clusters. A 08/23 urine culture was contaminated. IMAGING STUDIES: Renal ultrasound on 08/25/2020: Renal cortical echogenicity pattern is normal bilaterally, contours are smooth, no hydronephrosis on either side. No mass. Bilateral small renal cysts observed. Largest on the right, 0.9 cm and the left 0.8 cm. Negative ultrasound sonography. TIME SPENT ON DISCHARGE: 30 minutes [facility]
[2020-08-27] MEDS ORDERED: VANCOMYCIN HCL 750 MG, VIAL MATE ADAPTER 1 EACH in NS 250 ML IV ONE (12:00)
[2020-08-27] MEDS ORDERED: FLUCONAZOLE 50MG TABLET PO ONE (13:00)
[2020-08-27] MEDS ORDERED: VANCOMYCIN HCL 500 MG in D5W MINI-BAG PLUS 100 ML IV ONE (13:00)
[2020-08-27 14:00] VITALS: BP 166/74
[2020-08-27] MEDS ORDERED: DIFL200T PO (15:28)
== END 2020-08-27 18:25 | disposition home or self-care (01) | DRG 291 ==
LOC: M ED 18:12 → M ED INP 20:48 → ENRESERV 21:22 → M MS5PR 23:30
PROVIDERS: ADMIT Internal Medicine; ATTEND General Practice
DX: I13.0 Hypertensive heart and chronic kidney disease with heart failure and stage 1 through stage 4 chronic kidney disease, or unspecified chronic kidney disease (principal); I50.33 Acute on chronic diastolic (congestive) heart failure; J96.11 Chronic respiratory failure with hypoxia; N17.9 Acute kidney failure, unspecified; M10.9 Gout, unspecified; N18.30 Chronic kidney disease, stage 3 unspecified; I25.10 Atherosclerotic heart disease of native coronary artery without angina pectoris; J43.9 Emphysema, unspecified; K21.9 Gastro-esophageal reflux disease without esophagitis; E11.40 Type 2 diabetes mellitus with diabetic neuropathy, unspecified; G47.00 Insomnia, unspecified; G25.81 Restless legs syndrome; H40.9 Unspecified glaucoma; E87.5 Hyperkalemia; Z79.899 Other long term (current) drug therapy; Z79.82 Long term (current) use of aspirin; Z99.81 Dependence on supplemental oxygen

== ENCOUNTER 2020-09-01 11:44 | Emergency (ER) | payer MEDICARE, MEDICAID ==
[~2020-09-01] VITALS: Ht 154.9 cm; Wt 67.7 kg
[~2020-09-01 11:44] MED LIST changes: +BACI1CAP PO; +DIFL200T PO; +FLUC10TA PO; +LEVO750T13 PO
[2020-09-01 12:39] LABS: BASO # 0.1 10^3/uL (0.0-0.2); BASO % 0.3 % (0.0-1.0); EOS # 0.1 10^3/uL (0.0-0.5); EOS % 0.5 % (0.0-3.0); HEMATOCRIT 35.4 % (36.0-47.0); HEMOGLOBIN 10.8 g/dl (12.0-15.5); LYMPH # 2.5 10^3/uL (1.5-5.0); LYMPH % 11.7 % (24.0-44.0); MEAN CORPUSCULAR HEMOGLOBIN 23.7 pg (27.0-33.0); MEAN CORPUSCULAR HGB CONC 30.5 g/dl (32.0-36.5); MEAN CORPUSCULAR VOLUME 77.6 fl (80.0-96.0); MONO # 1.6 10^3/uL (0.0-0.8); MONO % 7.5 % (2.0-8.0); NEUTROPHILS % 79.1 % (36.0-66.0); PLATELET COUNT, AUTOMATED 202 10^3/uL (150-450); RED BLOOD COUNT 4.56 10^6/uL (4.00-5.40)
[2020-09-01 12:52] LABS: WHITE BLOOD COUNT 21.6 10^3/uL (4.0-10.0)
--- NOTE | 2020-09-01 12:53 | REP ---
INDICATION: DYSPNEA/COUGH. COMPARISON: Portable chest dated 08/27/2020. TECHNIQUE: Portable AP chest with the patient sitting. FINDINGS: There is diffuse bilateral interstitial coarsening, unchanged, chronic versus acute versus combination. Cardiomegaly, unchanged. No pleural effusions. IMPRESSION: Diffuse bilateral interstitial coarsening, chronic versus acute versus combination. There is cardiomegaly, unchanged. There are no pleural effusions. No significant interval change. <Electronically signed by Dominic Mckenna > 09/01/20 [id number]
[2020-09-01] MEDS ORDERED: FUROSEMIDE 40MG/4ML VIAL (J1940) IV ONE (13:00)
[2020-09-01 13:16] LABS: BILIRUBIN,DIRECT 0.1 MG/DL (0.0-0.2); BILIRUBIN,TOTAL 0.3 MG/DL (0.2-1.0); CK-MB VALUE MASS 2.7 NG/ML (<3.6); MB/CK RELATIVE INDEX 3.38 (< OR =4); THYROID STIMULATING HORMONE 2.09 uIU/ML (0.358-3.740); TOTAL PROTEIN 6.3 GM/DL (6.4-8.2); TROPONIN I 0.07 NG/ML (< 0.10)
[2020-09-01 15:45] VITALS: BP 146/68
--- NOTE | 2020-09-02 17:51 | ECGEPIP ---
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
--- NOTE | 2020-09-03 17:55 | ED PDOC ---
Post-Departure Follow-Up cxr faxed o dr moroe for fu . pt left ama. Reji Lewis MD Sep 03, 2020 17:55
== END 2020-09-01 15:56 | disposition left against medical advice (07) ==
LOC: EDBD 11:44 → M ED 11:44
DX: J96.20 Acute and chronic respiratory failure, unspecified whether with hypoxia or hypercapnia (principal); J44.9 Chronic obstructive pulmonary disease, unspecified; Z99.81 Dependence on supplemental oxygen; I13.0 Hypertensive heart and chronic kidney disease with heart failure and stage 1 through stage 4 chronic kidney disease, or unspecified chronic kidney disease; I50.33 Acute on chronic diastolic (congestive) heart failure; N17.9 Acute kidney failure, unspecified; I51.7 Cardiomegaly; K21.9 Gastro-esophageal reflux disease without esophagitis; I25.10 Atherosclerotic heart disease of native coronary artery without angina pectoris; G25.81 Restless legs syndrome; F17.200 Nicotine dependence, unspecified, uncomplicated; Z91.048 Other nonmedicinal substance allergy status; Z79.82 Long term (current) use of aspirin; Z79.899 Other long term (current) drug therapy; Z79.51 Long term (current) use of inhaled steroids
CPT/HCPCS: 71045; 80047; 80076; 82550; 82553; 82803; 83605; 83880; 84443; 84484; 85025; 87040; 87798; 93005; 93041; 94760; 96374; 99285; J1940

== ENCOUNTER → 2020-10-09 | Outpatient (CLI) | payer MEDICARE, MEDICAID ==
[2020-10-09 16:24] LABS: CREATININE FOR GFR 1.15 MG/DL (0.55-1.30)
== END ==
LOC: M LAB 15:29
PROVIDERS: ATTEND Ophthalmology
DX: H05.25 Intermittent exophthalmos (principal)

== ENCOUNTER → 2020-10-10 | Outpatient (CLI) | payer MEDICARE, MEDICAID ==
[~2020-10-10] MED LIST changes: +PROHANCE 279.3MG/ML 5ML VIAL As Ordered ONE
--- NOTE | 2020-10-10 19:47 | REPVR ---
PROCEDURE INFORMATION: Exam: MR Orbit Without and With Contrast Exam date and time: 10/10/2020 6:42 PM Age: 75 years old Clinical indication: Exophthalmos (bulging eyes); Constant exophthalmos; Left; Patient HX: Proprosis exophthalmos TECHNIQUE: Imaging protocol: MR Orbit was performed without and with intravenous contrast. Contrast material: PROHANCE; Contrast volume: 7 ml; Contrast route: INTRAVENOUS (IV); COMPARISON: MRI ORBIT FACE NECK W/O FOLL W 12/05/2017 9:14 PM FINDINGS: Orbital cavity: Bilateral exophthalmos, left greater than right with an ovoid shape of the left globe.. Increase in intraorbital fat, predominantly intraconal. Slight enlargement of the medial inferior rectus muscles bilaterally and of the lateral rectus muscle on the left. Paranasal sinuses: Mild inflammatory changes in the anterior ethmoid cells on the right and anterior and mid ethmoid cells on the left. Soft tissues: Unremarkable. IMPRESSION: 1. Bilateral exophthalmos, left greater than right with an ovoid shape of the left globe.. Increase in intraorbital fat, predominantly intraconal. Slight enlargement of the medial inferior rectus muscles bilaterally and of the lateral rectus muscle on the left. Clinical correlation to exclude thyroid ophthalmopathy suggested. 2. Mild inflammatory changes in the anterior ethmoid cells on the right and anterior and mid ethmoid cells on the left. Electronically signed by: Michel Hinojosa On 10/10/2020 19:46:30 PM
--- NOTE | 2020-10-10 19:49 | REPVR ---
PROCEDURE INFORMATION: Exam: MR Head Without Contrast Exam date and time: 10/10/2020 6:42 PM Age: 75 years old Clinical indication: Other: Proprosis exophthalmos TECHNIQUE: Imaging protocol: MR of the head without contrast. COMPARISON: MRI-Brain W/O FOLL BY WITH 12/05/2017 8:55 PM FINDINGS: Brain: Multiple foci of T2 lengthening are demonstrated in the subcortical, periventricular and centrum semiovale white matter consistent with age-related small vessel gliosis. Moderate age related parenchymal atrophy. No evidence of acute ischemia. Cerebral ventricles: Normal. No ventriculomegaly. Bones/joints: Unremarkable. Paranasal sinuses: Normal as visualized. No acute sinusitis. Mastoid air cells: Normal as visualized. No mastoid effusion. Orbital cavity: Unremarkable. Soft tissues: Unremarkable. IMPRESSION: 1. Multiple foci of T2 lengthening are demonstrated in the subcortical, periventricular and centrum semiovale white matter consistent with age-related small vessel gliosis. 2. Moderate age related parenchymal atrophy. 3. No acute findings. Electronically signed by: Michel Hinojosa On 10/10/2020 19:48:56 PM
== END ==
LOC: M RAD 17:05
PROVIDERS: ATTEND Physician Assistant
DX: H05.20 Unspecified exophthalmos (principal)
CPT/HCPCS: 70543; 70551; A9576

== ENCOUNTER → 2020-12-23 | Outpatient (CLI) | payer MEDICARE, MEDICAID ==
[~2020-12-23] MED LIST changes: -PROHANCE 279.3MG/ML 5ML VIAL As Ordered ONE
[2020-12-23 10:51] LABS: BASO % 0.3 % (0.0-1.0); EOS # 0.3 10^3/uL (0.0-0.5); EOS % 1.7 % (0.0-3.0); HEMOGLOBIN 13.7 g/dl (12.0-15.5); LYMPH # 3.2 10^3/uL (1.5-5.0); LYMPH % 21.9 % (24.0-44.0); MEAN CORPUSCULAR HGB CONC 31.1 g/dl (32.0-36.5); MEAN CORPUSCULAR VOLUME 86.8 fl (80.0-96.0); MONO # 1.2 10^3/uL (0.0-0.8); MONO % 7.9 % (2.0-8.0); NEUTROPHILS % 67.7 % (36.0-66.0); PLATELET COUNT, AUTOMATED 157 10^3/uL (150-450); RED BLOOD COUNT 5.07 10^6/uL (4.00-5.40); WHITE BLOOD COUNT 14.7 10^3/uL (4.0-10.0)
[2020-12-23 11:21] LABS: ALBUMIN 3.1 GM/DL (3.2-5.2); BILIRUBIN,TOTAL 0.4 MG/DL (0.2-1.0); CALCIUM LEVEL 8.7 MG/DL (8.8-10.2); CHOLESTEROL RISK RATIO 2.071 (<5); CREATININE FOR GFR 1.25 MG/DL (0.55-1.30); GLOMERULAR FILTRATION RATE 44.5 (>39); PERCENT SATURATION 15.5 % (13.2-45.0); POTASSIUM SERUM 4.5 MEQ/L (3.5-5.1); TOTAL PROTEIN 6.6 GM/DL (6.4-8.2)
[2020-12-23 11:42] LABS: HEMOGLOBIN A1c 7.2 %
== END ==
LOC: M LAB 10:09
PROVIDERS: ATTEND Internal Medicine
DX: E11.9 Type 2 diabetes mellitus without complications (principal); I10 Essential (primary) hypertension; D63.8 Anemia in other chronic diseases classified elsewhere; J44.9 Chronic obstructive pulmonary disease, unspecified; E78.5 Hyperlipidemia, unspecified

== ENCOUNTER 2021-01-20 13:38 | Outpatient (RCR) | payer MEDICARE, OTHER | END 2021-01-27 | LOC: M OT 13:38 | PROVIDERS: ATTEND Physician Assistant | DX: G56.01 Carpal tunnel syndrome, right upper limb (principal) ==

== ENCOUNTER 2021-01-29 13:35 | Outpatient (RCR) | payer MEDICARE, OTHER | END 2021-02-26 | LOC: M OT 13:35 | PROVIDERS: ATTEND Physician Assistant | DX: Z98.890 Other specified postprocedural states (principal); G56.01 Carpal tunnel syndrome, right upper limb ==

== ENCOUNTER → 2021-01-30 | Outpatient (REF) | payer MEDICARE, OTHER | LOC: M LAB REF 17:28 | PROVIDERS: ATTEND Nurse Practitioner Family | DX: E83.42 Hypomagnesemia (principal) ==

== ENCOUNTER → 2021-02-13 | Outpatient (REF) | payer MEDICARE, MEDICAID, OTHER ==
[~2021-02-13] MED LIST changes: +ALLO300T2 PO; +CARV6.25 PO; +CEFD300C41 PO; +DOXY100C3 PO; -LEVO500T3 PO; +LEVO500T4 PO; +MAGN400C PO; +MAGN400T2 PO; -MAGN400T3 PO; +MAGN400T33 PO; +ROPI0.253 PO; +TRUL0.5I SC; +VALS1TAB66 PO; +VITA400C56 PO
== END ==
LOC: M LAB REF 17:05
PROVIDERS: ATTEND Nurse Practitioner Family
DX: E83.42 Hypomagnesemia (principal)

== ENCOUNTER → 2021-03-27 | Outpatient (REF) | payer MEDICARE, MEDICAID, OTHER ==
[~2021-03-27] MED LIST changes: -ALLO300T2 PO; -CARV6.25 PO; -CEFD300C41 PO; -DOXY100C3 PO; +LEVO500T3 PO; -LEVO500T4 PO; -MAGN400C PO; -MAGN400T2 PO; -ROPI0.253 PO; -TRUL0.5I SC; -VALS1TAB66 PO; -VITA400C56 PO
== END ==
LOC: M LAB REF 16:49
PROVIDERS: ATTEND Nurse Practitioner Family
DX: E83.42 Hypomagnesemia (principal)

== ENCOUNTER → 2021-05-21 | Outpatient (CLI) | payer MEDICARE, MEDICAID, OTHER ==
--- NOTE | 2021-05-21 16:05 | REP ---
INDICATION: DYSPNEA, CHRONIC DIASTOLIC HEART FAILURE. COMPARISON: 09/01/2020 a portable exam TECHNIQUE: PA and lateral FINDINGS: Once again, there is evidence of global cardiomegaly. Once again, there is a diffuse increase in the interstitial markings throughout the lung [place]. No patchy opacities or pleural effusions have developed. There is no significant change in the appearance of the osseous structures. IMPRESSION: There are chronic changes as described above. Correlate clinically to rule out the possibility of acute interstitial edema superimposed upon chronic changes. <Electronically signed by Chito Bateman > 05/21/21 [id number]
== END ==
LOC: M WUC 15:53
PROVIDERS: ATTEND Nurse Practitioner Family
DX: I50.32 Chronic diastolic (congestive) heart failure (principal); R06.00 Dyspnea, unspecified

== ENCOUNTER 2021-06-02 12:31 | Emergency (ER) | payer MEDICARE, MEDICAID, OTHER ==
[~2021-06-02] VITALS: Ht 160 cm; Wt 68.7 kg
[2021-06-02 12:31] VITALS: BP 108/57
== END 2021-06-02 15:47 | disposition left against medical advice (07) ==
LOC: M ED 12:31
DX: Z53.21 Procedure and treatment not carried out due to patient leaving prior to being seen by health care provider (principal)

== ENCOUNTER → 2021-06-23 | Outpatient (REF) | payer MEDICARE, MEDICAID, OTHER ==
[~2021-06-23] MED LIST changes: +ALLO300T2 PO; +CARV6.25 PO; +CEFD300C41 PO; +DOXY100C3 PO; -LEVO500T3 PO; +LEVO500T4 PO; +MAGN400C PO; +MAGN400T2 PO; +ROPI0.253 PO; +TRUL0.5I SC; +VALS1TAB66 PO; +VITA400C56 PO
== END ==
LOC: M LAB REF 16:59
PROVIDERS: ATTEND Nurse Practitioner Family
DX: D23.62 Other benign neoplasm of skin of left upper limb, including shoulder (principal)
CPT/HCPCS: 11102; 88305; G0463

== ENCOUNTER → 2021-06-26 | Outpatient (CLI) | payer MEDICARE, OTHER | LOC: M PLAIMG 13:10 | PROVIDERS: ATTEND Physician Assistant | DX: M50.21 Other cervical disc displacement, high cervical region (principal); M50.221 Other cervical disc displacement at C4-C5 level; M50.222 Other cervical disc displacement at C5-C6 level; M50.223 Other cervical disc displacement at C6-C7 level; M48.02 Spinal stenosis, cervical region; M47.892 Other spondylosis, cervical region ==

== ENCOUNTER 2021-07-07 15:57 | Inpatient (IN) | payer MEDICARE, OTHER ==
[~2021-07-07] VITALS: Ht 154.9 cm; Wt 67.3 kg
[~2021-07-07 15:57] MED LIST changes: -ALLO300T2 PO; -CARV6.25 PO; -MAGN400C PO; -MAGN400T2 PO; -ROPI0.253 PO; -TRUL0.5I SC; -VALS1TAB66 PO; -VITA400C56 PO
[2021-07-07] MEDS ORDERED: HYDR-3719 PO (16:34)
[2021-07-07] MEDS ORDERED: CARV6.25 PO (16:34)
[2021-07-07] MEDS ORDERED: TRUL0.5I SC (16:34)
[2021-07-07] MEDS ORDERED: MAGN400C PO (16:34)
[2021-07-07] MEDS ORDERED: FURO40TA2 PO (16:34)
[2021-07-07] MEDS ORDERED: ALBUTEROL SULFATE 2.5 MG/0.5 ML INH NEB SOLN INH ONE (16:40)
[2021-07-07] MEDS ORDERED: cefTRIAXone SOD 2 GM in D5W MINI-BAG PLUS 50 ML IV ONE (16:40)
[2021-07-07] MEDS ORDERED: dexameTHASONE 20MG/5ML VIAL (J1100 PER 1MG) IV ONE (16:40)
[2021-07-07] MEDS ORDERED: IPRATROPIUM 0.5MG/ALBUTEROL 2.5MG INH SOL UD 3ML (DUONEB) NEB ONE (16:40)
[2021-07-07 16:44] LABS: BASO # 0.1 10^3/uL (0.0-0.2); BASO % 0.3 % (0.0-1.0); EOS # 0.1 10^3/uL (0.0-0.5); EOS % 0.6 % (0.0-3.0); HEMATOCRIT 41.9 % (36.0-47.0); HEMOGLOBIN 13.1 g/dl (12.0-15.5); LYMPH # 1.4 10^3/uL (1.5-5.0); LYMPH % 7.2 % (24.0-44.0); MEAN CORPUSCULAR HEMOGLOBIN 28.7 pg (27.0-33.0); MEAN CORPUSCULAR HGB CONC 31.3 g/dl (32.0-36.5); MEAN CORPUSCULAR VOLUME 91.9 fl (80.0-96.0); MONO # 1.3 10^3/uL (0.0-0.8); MONO % 6.9 % (2.0-8.0); NEUTROPHILS # 16.4 10^3/uL (1.5-8.5); NEUTROPHILS % 84.3 % (36.0-66.0); PLATELET COUNT, AUTOMATED 138 10^3/uL (150-450); RED BLOOD COUNT 4.56 10^6/uL (4.00-5.40); WHITE BLOOD COUNT 19.5 10^3/uL (4.0-10.0)
[2021-07-07 17:29] LABS: CK-MB VALUE MASS 4.2 NG/ML (<3.6); MB/CK RELATIVE INDEX 6.36 (< OR =4)
[2021-07-07 17:54] LABS: ABG BASE EXCESS 1.7 (-2.0-2.0); ABG HCO3 27.2 MEQ/L (22.0-26.0); ABG PARTIAL PRESSURE O2 62.2 mmHg (75.0-100.0); ABG STANDARD HCO3 25.8 MEQ/L (22.0-26.0); ABG TOTAL CO2 28.6 MEQ/L (23.0-31.0); ABG pH (ARTERIAL) 7.389 UNITS (7.350-7.450)
[2021-07-07 17:54] LABS: BILIRUBIN,DIRECT 0.1 MG/DL (0.0-0.2); BILIRUBIN,TOTAL 0.4 MG/DL (0.2-1.0); CALCIUM LEVEL 8.9 MG/DL (8.8-10.2); CREATININE FOR GFR 1.63 MG/DL (0.55-1.30); GLOMERULAR FILTRATION RATE 32.7 (>39); POTASSIUM SERUM 5.7 MEQ/L (3.5-5.1); TOTAL PROTEIN 6.7 GM/DL (6.4-8.2)
[2021-07-07 18:50] LABS: THYROID STIMULATING HORMONE 2.21 uIU/ML (0.358-3.740)
[2021-07-07] MEDS ORDERED: ROPI0.253 PO (19:25)
[2021-07-07] MEDS ORDERED: VITA400C56 PO (19:25)
[2021-07-07] MEDS ORDERED: ALLO300T2 PO (19:25)
[2021-07-07] MEDS ORDERED: CVS10CAP7 PO (19:25)
[2021-07-07] MEDS ORDERED: VALS1TAB66 PO (19:25)
[2021-07-07] MEDS ORDERED: MAGN400T2 PO (19:27)
[2021-07-07] MEDS ORDERED: HOME MED LIST COMPLETE! XX SCH (19:30)
[2021-07-07] MEDS ORDERED: GLUCOSE 4GM CHEW TABLET PO PRN (20:05)
[2021-07-07] MEDS ORDERED: GLUCAGON INJ 1MG VIAL SC PRN (20:05)
[2021-07-07] MEDS ORDERED: DEXTROSE 50% 50 ML SYRINGE IV PRN (20:05)
[2021-07-07] MEDS ORDERED: ALBUTEROL 90 MCG/ACT 8GM HFA INHALER INH PRN (20:05)
[2021-07-07] MEDS ORDERED: NYSTATIN 100,000 UNITS/GM TOPICAL PWD 15 GM TOP PRN (20:05)
[2021-07-07] MEDS ORDERED: ALBUTEROL SULFATE 2.5 MG/0.5 ML INH NEB SOLN INH PRN (20:05)
[2021-07-07 21:11] LABS: CALCIUM LEVEL 9.4 MG/DL (8.8-10.2); CREATININE FOR GFR 1.56 MG/DL (0.55-1.30); GLOMERULAR FILTRATION RATE 34.4 (>39); POTASSIUM SERUM 5.5 MEQ/L (3.5-5.1)
[2021-07-07] MEDS: HumaLOG INSULIN (NovoLOG) PER UNIT SC SCH (22:00)
[2021-07-07] MEDS ORDERED: FUROSEMIDE 40MG/4ML VIAL (J1940) IV ONE (22:00)
[2021-07-07] MEDS: NORCO, ANEXSIA 5/325MG TABLET (HYDROcodone/ACETAMINOPHEN) PO PRN (23:05)
[2021-07-07] MEDS: DULoxetine 30MG CAPSULE (CYMBALTA) PO SCH (23:05)
[2021-07-07] MEDS: ROSUVASTATIN 10 MG TAB (CRESTOR) PO SCH (23:05)
[2021-07-07] MEDS: DOXYCYCLINE HYCLATE 100 MG in D5W MINI-BAG PLUS 100 ML IV SCH (23:05)
[2021-07-07] MEDS: PREGABALIN 100 MG CAP (LYRICA) PO SCH (23:05)
[2021-07-07] MEDS: FAMOTIDINE 20 MG TAB PO SCH (23:05)
[2021-07-07] MEDS: CARVedilol 6.25 MG TAB PO SCH (23:05)
[2021-07-07] MEDS: ASPIRIN 81MG ENTERIC TABLET PO SCH (23:05)
[2021-07-08] MEDS: POLYVINYL ALCOHOL OPHTH SOLN 15 ML(LIQUITEARS) OU SCH ×2 (00:13→09:00)
[2021-07-08] MEDS: rOPINIRole 0.25 MG TAB(REQUIP) PO SCH ×2 (00:13→21:51)
[2021-07-08] MEDS: IPRATROPIUM 0.5MG/ALBUTEROL 2.5MG INH SOL UD 3ML (DUONEB) INH SCH ×6 (01:21→18:20)
[2021-07-08 04:49] VITALS: BP 142/72
[2021-07-08] MEDS: HEPARIN SOD (PORCINE) 5000UNITS/ML 1ML VIAL/SYRINGE SQ SCH ×3 (05:26→21:52)
[2021-07-08] MEDS: NORCO, ANEXSIA 5/325MG TABLET (HYDROcodone/ACETAMINOPHEN) PO PRN ×3 (05:27→21:53)
[2021-07-08 06:17] LABS: BASO % 0.1 % (0.0-1.0); HEMATOCRIT 39.9 % (36.0-47.0); HEMOGLOBIN 12.5 g/dl (12.0-15.5); LYMPH # 1.2 10^3/uL (1.5-5.0); LYMPH % 10.1 % (24.0-44.0); MEAN CORPUSCULAR HEMOGLOBIN 28.6 pg (27.0-33.0); MEAN CORPUSCULAR HGB CONC 31.3 g/dl (32.0-36.5); MEAN CORPUSCULAR VOLUME 91.3 fl (80.0-96.0); MONO # 0.3 10^3/uL (0.0-0.8); MONO % 2.3 % (2.0-8.0); NEUTROPHILS % 86.8 % (36.0-66.0); PLATELET COUNT, AUTOMATED 132 10^3/uL (150-450); RED BLOOD COUNT 4.37 10^6/uL (4.00-5.40); WHITE BLOOD COUNT 11.5 10^3/uL (4.0-10.0)
[2021-07-08 06:31] LABS: CALCIUM LEVEL 9.1 MG/DL (8.8-10.2); CREATININE FOR GFR 1.59 MG/DL (0.55-1.30); GLOMERULAR FILTRATION RATE 33.7 (>39); POTASSIUM SERUM 5.9 MEQ/L (3.5-5.1)
[2021-07-08] MEDS: TIOTROPIUM INHALER/CAPSULE (SPIRIVA) INH SCH (07:18)
[2021-07-08] MEDS ORDERED: VALSARTAN 80 MG TAB (DIOVAN) PO SCH (09:00)
[2021-07-08] MEDS ORDERED: LEVEMIR (INSULIN DETEMIR) 1 UNITS/0.01ML SC SCH (09:00)
[2021-07-08] MEDS ORDERED: FUROSEMIDE 40 MG TAB PO SCH (09:00)
[2021-07-08] MEDS: FUROSEMIDE 40MG/4ML VIAL (J1940) IV SCH ×2 (09:26→17:07)
[2021-07-08] MEDS: HumaLOG INSULIN (NovoLOG) PER UNIT SC SCH ×4 (09:26→21:52)
[2021-07-08] MEDS: allopurinoL 300 MG TAB PO SCH (09:27)
[2021-07-08] MEDS: predniSONE 20 MG TAB PO SCH (09:27)
[2021-07-08] MEDS: MAGNESIUM OXIDE 400MG TAB (MAG-OX) PO SCH (09:27)
[2021-07-08] MEDS: DULoxetine 30MG CAPSULE (CYMBALTA) PO SCH ×2 (09:27→21:51)
[2021-07-08] MEDS: PREGABALIN 100 MG CAP (LYRICA) PO SCH ×2 (09:27→21:51)
[2021-07-08] MEDS: LEVEMIR (INSULIN DETEMIR) 1 UNITS/0.01ML SC SCH (09:27)
[2021-07-08] MEDS: guaiFENesin ER 600 MG TAB PO SCH ×2 (09:28→21:51)
[2021-07-08] MEDS: PANTOPRAZOLE 40MG TAB (PROTONIX) PO SCH (09:28)
[2021-07-08] MEDS: CARVedilol 6.25 MG TAB PO SCH ×2 (09:28→21:51)
[2021-07-08] MEDS: DOXYCYCLINE HYCLATE 100 MG in D5W MINI-BAG PLUS 100 ML IV SCH ×2 (09:28→21:53)
[2021-07-08] MEDS: CALCITRIOL 0.25 MCG CAP (S0169) PO SCH (09:28)
[2021-07-08 14:00] VITALS: BP 114/54
[2021-07-08 15:34] LABS: MAGNESIUM LEVEL 2.4 MG/DL (1.7-2.2)
[2021-07-08] MEDS: cefTRIAXone SOD 1 GM in D5W MINI-BAG PLUS 50 ML IV SCH (16:38)
[2021-07-08] MEDS: ASPIRIN 81MG ENTERIC TABLET PO SCH (21:51)
[2021-07-08] MEDS: ROSUVASTATIN 10 MG TAB (CRESTOR) PO SCH (21:51)
[2021-07-08] MEDS: FAMOTIDINE 20 MG TAB PO SCH (21:51)
[2021-07-08 22:00] VITALS: BP 137/65
[2021-07-09] MEDS: IPRATROPIUM 0.5MG/ALBUTEROL 2.5MG INH SOL UD 3ML (DUONEB) INH SCH
[2021-07-09] MEDS: POLYVINYL ALCOHOL OPHTH SOLN 15 ML(LIQUITEARS) OU SCH ×3 (00:52→19:59)
[2021-07-09] MEDS: ALBUTEROL SULFATE 2.5 MG/0.5 ML INH NEB SOLN NEB SCH ×6 (00:52→20:37)
[2021-07-09] MEDS: NORCO, ANEXSIA 5/325MG TABLET (HYDROcodone/ACETAMINOPHEN) PO PRN ×3 (05:40→20:07)
[2021-07-09] MEDS: HEPARIN SOD (PORCINE) 5000UNITS/ML 1ML VIAL/SYRINGE SQ SCH ×3 (05:40→21:13)
[2021-07-09 06:00] VITALS: BP 154/70
[2021-07-09 06:25] LABS: BASO % 0.1 % (0.0-1.0); EOS % 0.1 % (0.0-3.0); HEMATOCRIT 38.6 % (36.0-47.0); LYMPH # 2.3 10^3/uL (1.5-5.0); LYMPH % 13.3 % (24.0-44.0); MEAN CORPUSCULAR HEMOGLOBIN 28.4 pg (27.0-33.0); MEAN CORPUSCULAR HGB CONC 31.1 g/dl (32.0-36.5); MEAN CORPUSCULAR VOLUME 91.5 fl (80.0-96.0); MONO # 1.1 10^3/uL (0.0-0.8); MONO % 6.5 % (2.0-8.0); NEUTROPHILS # 13.8 10^3/uL (1.5-8.5); NEUTROPHILS % 79.3 % (36.0-66.0); PLATELET COUNT, AUTOMATED 155 10^3/uL (150-450); RED BLOOD COUNT 4.22 10^6/uL (4.00-5.40); WHITE BLOOD COUNT 17.5 10^3/uL (4.0-10.0)
[2021-07-09 07:01] LABS: CALCIUM LEVEL 9.1 MG/DL (8.8-10.2); CREATININE FOR GFR 1.49 MG/DL (0.55-1.30); GLOMERULAR FILTRATION RATE 36.3 (>39); POTASSIUM SERUM 4.4 MEQ/L (3.5-5.1)
[2021-07-09] MEDS: TIOTROPIUM INHALER/CAPSULE (SPIRIVA) INH SCH (08:00)
[2021-07-09] MEDS: FUROSEMIDE 40MG/4ML VIAL (J1940) IV SCH ×2 (08:45→18:23)
[2021-07-09] MEDS: DOXYCYCLINE HYCLATE 100 MG in D5W MINI-BAG PLUS 100 ML IV SCH ×2 (08:45→19:56)
[2021-07-09] MEDS: LEVEMIR (INSULIN DETEMIR) 1 UNITS/0.01ML SC SCH (08:46)
[2021-07-09] MEDS: HumaLOG INSULIN (NovoLOG) PER UNIT SC SCH ×4 (08:46→20:07)
[2021-07-09] MEDS: CARVedilol 6.25 MG TAB PO SCH ×2 (08:47→19:58)
[2021-07-09] MEDS: DULoxetine 30MG CAPSULE (CYMBALTA) PO SCH ×2 (08:47→19:57)
[2021-07-09] MEDS: predniSONE 20 MG TAB PO SCH (08:47)
[2021-07-09] MEDS: allopurinoL 300 MG TAB PO SCH (08:47)
[2021-07-09] MEDS: PREGABALIN 100 MG CAP (LYRICA) PO SCH ×2 (08:47→19:57)
[2021-07-09] MEDS: CALCITRIOL 0.25 MCG CAP (S0169) PO SCH (08:47)
[2021-07-09] MEDS: PANTOPRAZOLE 40MG TAB (PROTONIX) PO SCH (08:48)
[2021-07-09] MEDS: guaiFENesin ER 600 MG TAB PO SCH ×2 (08:48→19:56)
[2021-07-09] MEDS: MAGNESIUM OXIDE 400MG TAB (MAG-OX) PO SCH (08:56)
[2021-07-09 14:00] VITALS: BP 154/75
[2021-07-09] MEDS: cefTRIAXone SOD 1 GM in D5W MINI-BAG PLUS 50 ML IV SCH (18:23)
[2021-07-09] MEDS: rOPINIRole 0.25 MG TAB(REQUIP) PO SCH (19:56)
[2021-07-09] MEDS: ROSUVASTATIN 10 MG TAB (CRESTOR) PO SCH (19:57)
[2021-07-09] MEDS: FAMOTIDINE 20 MG TAB PO SCH (19:58)
[2021-07-09] MEDS: ASPIRIN 81MG ENTERIC TABLET PO SCH (19:58)
[2021-07-09 21:05] VITALS: BP 149/68
[2021-07-10] MEDS: ALBUTEROL SULFATE 2.5 MG/0.5 ML INH NEB SOLN NEB SCH ×4 (01:22→11:19)
[2021-07-10] MEDS: HEPARIN SOD (PORCINE) 5000UNITS/ML 1ML VIAL/SYRINGE SQ SCH ×2 (05:18→14:00)
[2021-07-10 06:57] VITALS: BP 144/68
[2021-07-10] MEDS: TIOTROPIUM INHALER/CAPSULE (SPIRIVA) INH SCH (07:16)
[2021-07-10 07:17] LABS: BASO % 0.1 % (0.0-1.0); EOS # 0.1 10^3/uL (0.0-0.5); EOS % 0.4 % (0.0-3.0); HEMOGLOBIN 12.6 g/dl (12.0-15.5); LYMPH # 2.7 10^3/uL (1.5-5.0); LYMPH % 16.3 % (24.0-44.0); MEAN CORPUSCULAR HEMOGLOBIN 28.9 pg (27.0-33.0); MEAN CORPUSCULAR HGB CONC 31.5 g/dl (32.0-36.5); MEAN CORPUSCULAR VOLUME 91.7 fl (80.0-96.0); MONO # 1.3 10^3/uL (0.0-0.8); MONO % 7.9 % (2.0-8.0); NEUTROPHILS # 12.2 10^3/uL (1.5-8.5); NEUTROPHILS % 74.7 % (36.0-66.0); PLATELET COUNT, AUTOMATED 157 10^3/uL (150-450); RED BLOOD COUNT 4.36 10^6/uL (4.00-5.40); WHITE BLOOD COUNT 16.3 10^3/uL (4.0-10.0)
[2021-07-10 07:42] LABS: CALCIUM LEVEL 8.9 MG/DL (8.8-10.2); CREATININE FOR GFR 1.17 MG/DL (0.55-1.30)
[2021-07-10] MEDS ORDERED: FURO40TA2 PO (08:14)
[2021-07-10] MEDS ORDERED: PRED20TA PO (08:14)
[2021-07-10] MEDS ORDERED: DOXY100C3 PO (08:17)
[2021-07-10] MEDS ORDERED: CEFD300C41 PO (08:17)
[2021-07-10] MEDS: DOXYCYCLINE HYCLATE 100 MG in D5W MINI-BAG PLUS 100 ML IV SCH (08:28)
[2021-07-10] MEDS: HumaLOG INSULIN (NovoLOG) PER UNIT SC SCH ×2 (08:28→11:40)
[2021-07-10] MEDS: FUROSEMIDE 40MG/4ML VIAL (J1940) IV SCH (08:28)
[2021-07-10] MEDS: PANTOPRAZOLE 40MG TAB (PROTONIX) PO SCH (08:29)
[2021-07-10] MEDS: DULoxetine 30MG CAPSULE (CYMBALTA) PO SCH (08:29)
[2021-07-10] MEDS: allopurinoL 300 MG TAB PO SCH (08:29)
[2021-07-10] MEDS: MAGNESIUM OXIDE 400MG TAB (MAG-OX) PO SCH (08:29)
[2021-07-10] MEDS: LEVEMIR (INSULIN DETEMIR) 1 UNITS/0.01ML SC SCH (08:29)
[2021-07-10] MEDS: predniSONE 20 MG TAB PO SCH (08:29)
[2021-07-10] MEDS: PREGABALIN 100 MG CAP (LYRICA) PO SCH (08:29)
[2021-07-10] MEDS: CARVedilol 6.25 MG TAB PO SCH (08:30)
[2021-07-10] MEDS: CALCITRIOL 0.25 MCG CAP (S0169) PO SCH (08:30)
[2021-07-10] MEDS: POLYVINYL ALCOHOL OPHTH SOLN 15 ML(LIQUITEARS) OU SCH (08:30)
[2021-07-10] MEDS: guaiFENesin ER 600 MG TAB PO SCH (08:30)
[2021-07-10 09:46] VITALS: BP 170/85
[2021-07-10] MEDS ORDERED: cefTRIAXone SOD 1 GM in D5W MINI-BAG PLUS 50 ML IV SCH (11:00)
== END 2021-07-10 15:23 | disposition home health service (06) | DRG 193 ==
LOC: EDBD 15:57 → M ED 15:57 → M ED INP 20:10 → M MSPAV 07-08 04:40
PROVIDERS: ADMIT Family Medicine; ATTEND Internal Medicine Nephrology
DX: J18.9 Pneumonia, unspecified organism (principal); J96.21 Acute and chronic respiratory failure with hypoxia; J96.22 Acute and chronic respiratory failure with hypercapnia; I50.33 Acute on chronic diastolic (congestive) heart failure; I13.0 Hypertensive heart and chronic kidney disease with heart failure and stage 1 through stage 4 chronic kidney disease, or unspecified chronic kidney disease; J44.1 Chronic obstructive pulmonary disease with (acute) exacerbation; J44.0 Chronic obstructive pulmonary disease with (acute) lower respiratory infection; N18.30 Chronic kidney disease, stage 3 unspecified; E11.22 Type 2 diabetes mellitus with diabetic chronic kidney disease; I27.20 Pulmonary hypertension, unspecified; E11.40 Type 2 diabetes mellitus with diabetic neuropathy, unspecified; J84.10 Pulmonary fibrosis, unspecified; I25.10 Atherosclerotic heart disease of native coronary artery without angina pectoris; K21.9 Gastro-esophageal reflux disease without esophagitis; G25.81 Restless legs syndrome; M10.9 Gout, unspecified; B37.2 Candidiasis of skin and nail; Z79.899 Other long term (current) drug therapy; Z79.82 Long term (current) use of aspirin; Z79.52 Long term (current) use of systemic steroids; Z99.81 Dependence on supplemental oxygen; E78.5 Hyperlipidemia, unspecified; F17.210 Nicotine dependence, cigarettes, uncomplicated; E87.5 Hyperkalemia

== ENCOUNTER → 2021-07-07 | Outpatient (REF) | payer MEDICARE, OTHER ==
[~2021-07-07] MED LIST changes: -CEFD300C41 PO; -DOXY100C3 PO
== END ==
LOC: M LAB REF 17:19
PROVIDERS: ATTEND Nurse Practitioner Family
DX: I50.32 Chronic diastolic (congestive) heart failure (principal)

== ENCOUNTER 2021-10-08 13:40 | Emergency (ER) | payer MEDICARE ==
[~2021-10-08] VITALS: Ht 160 cm; Wt 65.9 kg
[~2021-10-08 13:40] MED LIST changes: -ACET1TAB16 PO; +ACET300T48 PO; +ALLO300T2 PO; +CARV6.25 PO; +CEFD300C41 PO; +DOXY100C3 PO; -DOXY150C PO; +DOXY150C3 PO; +MAGN400C PO; +MAGN400T2 PO; -OLOP0.1D OS; +OLOP5DRO16 OS; +ROPI0.253 PO; +TRUL0.5I SC; +VALS1TAB66 PO; +VITA400C56 PO
[2021-10-08] MEDS ORDERED: NORCO, ANEXSIA 5/325MG TABLET (HYDROcodone/ACETAMINOPHEN) PO ONE ×2 (19:00→21:20)
[2021-10-08 19:50] VITALS: BP 182/85
[2021-10-08 20:21] LABS: BASO % 0.2 % (0.0-1.0); EOS % 0.1 % (0.0-3.0); HEMATOCRIT 42.3 % (36.0-47.0); HEMOGLOBIN 13.5 g/dl (12.0-15.5); LYMPH # 1.9 10^3/uL (1.5-5.0); LYMPH % 9.9 % (24.0-44.0); MEAN CORPUSCULAR HGB CONC 31.9 g/dl (32.0-36.5); MEAN CORPUSCULAR VOLUME 90.8 fl (80.0-96.0); MONO # 1.2 10^3/uL (0.0-0.8); MONO % 6.4 % (2.0-8.0); NEUTROPHILS # 15.5 10^3/uL (1.5-8.5); NEUTROPHILS % 82.8 % (36.0-66.0); PLATELET COUNT, AUTOMATED 113 10^3/uL (150-450); RED BLOOD COUNT 4.66 10^6/uL (4.00-5.40); WHITE BLOOD COUNT 18.7 10^3/uL (4.0-10.0)
[2021-10-08 20:53] LABS: C REACTIVE PROTEIN QUANTITATIV 3.56 MG/DL (0.00-0.30); CALCIUM LEVEL 8.3 MG/DL (8.8-10.2); CREATININE FOR GFR 1.32 MG/DL (0.55-1.30); GLOMERULAR FILTRATION RATE 41.7 (>39); POTASSIUM SERUM 4.2 MEQ/L (3.5-5.1)
[2021-10-08 21:00] LABS: ERYTHROCYTE SEDIMENTATION RATE 24 mm/hr (0-30)
[2021-10-08] MEDS ORDERED: CEPHALEXIN 500 MG CAP PO ONE (21:15)
[2021-10-08] MEDS ORDERED: CEPH500C PO (21:18)
[2021-10-08] MEDS ORDERED: HYDR-3713 PO (21:21)
== END 2021-10-08 22:20 | disposition home or self-care (01) ==
LOC: M ED 13:40
DX: R22.32 Localized swelling, mass and lump, left upper limb (principal); L03.012 Cellulitis of left finger; E11.9 Type 2 diabetes mellitus without complications; J44.9 Chronic obstructive pulmonary disease, unspecified; N18.30 Chronic kidney disease, stage 3 unspecified; I10 Essential (primary) hypertension; Z86.79 Personal history of other diseases of the circulatory system; Z79.4 Long term (current) use of insulin; Z91.048 Other nonmedicinal substance allergy status

== ENCOUNTER 2021-11-11 20:43 | Inpatient (IN) | payer MEDICARE ==
[~2021-11-11] VITALS: Ht 160 cm; Wt 66.0 kg
[~2021-11-11 20:43] MED LIST changes: +ALBU2.5V10 INH; -ALBU83IN INH; +CEPH500C PO; +HUMU1INJ2 SC; -HUMU1INJ2 SQ; +HYDR-3713 PO
[2021-11-11] MEDS ORDERED: methylPREDNISolone 125MG 2ML VIAL IV ONE (20:55)
[2021-11-11 22:02] LABS: CK-MB VALUE MASS 3.8 NG/ML (<3.6); MB/CK RELATIVE INDEX 7.31 (< OR =4)
[2021-11-11 22:04] LABS: ALBUMIN 2.1 GM/DL (3.2-5.2); BILIRUBIN,DIRECT 0.2 MG/DL (0.0-0.2); BILIRUBIN,TOTAL 0.2 MG/DL (0.2-1.0); CALCIUM LEVEL 7.5 MG/DL (8.8-10.2); CREATININE FOR GFR 1.88 MG/DL (0.55-1.30); GLOMERULAR FILTRATION RATE 27.7 (>39); POTASSIUM SERUM 5.8 MEQ/L (3.5-5.1); THYROID STIMULATING HORMONE 0.712 uIU/ML (0.358-3.740); THYROXINE (T4) 2.5 UG/DL (4.5-12.0)
[2021-11-11] MEDS ORDERED: ACETAMINOPHEN 325 MG TAB PO ONE (22:25)
[2021-11-11 22:28] LABS: BASO % 0.1 % (0.0-1.0); HEMATOCRIT 35.7 % (36.0-47.0); HEMOGLOBIN 11.2 g/dl (12.0-15.5); LYMPH # 1.3 10^3/uL (1.5-5.0); LYMPH % 7.4 % (24.0-44.0); MEAN CORPUSCULAR HEMOGLOBIN 28.1 pg (27.0-33.0); MEAN CORPUSCULAR HGB CONC 31.4 g/dl (32.0-36.5); MEAN CORPUSCULAR VOLUME 89.5 fl (80.0-96.0); MONO # 0.7 10^3/uL (0.0-0.8); MONO % 3.9 % (2.0-8.0); NEUTROPHILS # 15.9 10^3/uL (1.5-8.5); NEUTROPHILS % 87.8 % (36.0-66.0); PLATELET COUNT, AUTOMATED 192 10^3/uL (150-450); RED BLOOD COUNT 3.99 10^6/uL (4.00-5.40); WHITE BLOOD COUNT 18.1 10^3/uL (4.0-10.0)
[2021-11-11] MEDS ORDERED: FUROSEMIDE 100MG/10ML VIAL (J1940) IV ONE (22:35)
[2021-11-11] MEDS ORDERED: HumuLIN R (REGULAR) INSULIN (NovoLIN R) **100U/ML** PER UNIT IV ONE (22:45)
[2021-11-12] MEDS ORDERED: ALBUTEROL SULFATE 2.5 MG/0.5 ML INH NEB SOLN NEB PRN (01:20)
[2021-11-12] MEDS ORDERED: GLUCOSE 4GM CHEW TABLET PO PRN (01:20)
[2021-11-12] MEDS ORDERED: GLUCAGON INJ 1MG VIAL SC PRN (01:20)
[2021-11-12] MEDS ORDERED: HYDROMORPHONE HCL 0.5 MG/ 0.5 ML SYRINGE (J1170 PER 1) IV PRN (01:20)
[2021-11-12] MEDS ORDERED: DEXTROSE 50% 50 ML SYRINGE IV PRN (01:20)
[2021-11-12] MEDS: IPRATROPIUM 0.5MG/ALBUTEROL 2.5MG INH SOL UD 3ML (DUONEB) NEB SCH ×4 (02:00→19:45)
[2021-11-12] MEDS ORDERED: FURO20TA2 PO (02:03)
[2021-11-12] MEDS ORDERED: POTA10TA17 PO (02:03)
[2021-11-12] MEDS ORDERED: HYDR-4517 PO (02:03)
[2021-11-12] MEDS ORDERED: GLUC1KIT IM (02:03)
[2021-11-12] MEDS ORDERED: D 50CAP2 PO (02:03)
[2021-11-12] MEDS ORDERED: NYSTATIN 100,000 UNITS/GM TOPICAL PWD 15 GM TOP PRN (02:05)
[2021-11-12] MEDS ORDERED: HOME MED LIST COMPLETE! XX SCH (02:05)
[2021-11-12] MEDS ORDERED: NITROGLYCERIN 0.4 MG SUBL TABLET SL PRN (02:05)
[2021-11-12] MEDS: NS 1,000 ML IV SCH ×2 (02:13→03:24)
[2021-11-12] MEDS ORDERED: HumuLIN R (REGULAR) INSULIN (NovoLIN R) **100U/ML** PER UNIT IV STA (02:22)
[2021-11-12 02:38] VITALS: BP 143/86
[2021-11-12] MEDS: NORCO, ANEXSIA 5/325MG TABLET (HYDROcodone/ACETAMINOPHEN) PO PRN ×3 (03:24→18:00)
[2021-11-12 06:00] VITALS: BP 144/85
[2021-11-12] MEDS ORDERED: methylPREDNISolone 125MG 2ML VIAL IV SCH (06:00)
[2021-11-12 06:39] LABS: HEMATOCRIT 36.1 % (36.0-47.0); HEMOGLOBIN 11.5 g/dl (12.0-15.5)
[2021-11-12 06:55] LABS: ALBUMIN 2.1 GM/DL (3.2-5.2); BILIRUBIN,TOTAL 0.3 MG/DL (0.2-1.0); CALCIUM LEVEL 8.8 MG/DL (8.8-10.2); CREATININE FOR GFR 1.73 MG/DL (0.55-1.30); GLOMERULAR FILTRATION RATE 30.5 (>39); POTASSIUM SERUM 5.5 MEQ/L (3.5-5.1); TOTAL PROTEIN 6.7 GM/DL (6.4-8.2)
[2021-11-12] MEDS ORDERED: FUROSEMIDE 100MG/10ML VIAL (J1940) IV SCH (08:00)
[2021-11-12] MEDS: DULoxetine 30MG CAPSULE (CYMBALTA) PO SCH ×2 (08:36→22:05)
[2021-11-12] MEDS: allopurinoL 300 MG TAB PO SCH (08:36)
[2021-11-12] MEDS: CARVedilol 6.25 MG TAB PO SCH ×2 (08:37→22:06)
[2021-11-12] MEDS: PANTOPRAZOLE 40MG TAB (PROTONIX) PO SCH (08:37)
[2021-11-12] MEDS: HEPARIN SOD (PORCINE) 5000UNITS/ML 1ML VIAL/SYRINGE SQ SCH ×2 (08:37→22:04)
[2021-11-12] MEDS: PREGABALIN 100 MG CAP (LYRICA) PO SCH ×2 (08:37→22:04)
[2021-11-12] MEDS: HumuLIN N INSULIN (NovoLIN N) PER UNIT SC SCH ×2 (08:38→22:07)
[2021-11-12] MEDS: INSULIN LISPRO (NovoLOG) PER UNIT SC SCH ×4 (08:38→22:06)
[2021-11-12] MEDS ORDERED: ENOXAPARIN 40MG/0.4ML SYRINGE (J1650 PER 10MG) SC SCH (09:00)
[2021-11-12] MEDS ORDERED: VALSARTAN 80 MG TAB (DIOVAN) PO SCH (09:00)
[2021-11-12 14:00] VITALS: BP 142/63
[2021-11-12] MEDS: NYSTATIN 100,000 UNITS/GM TOPICAL PWD 15 GM TOP SCH ×2 (14:16→22:07)
[2021-11-12] MEDS: FUROSEMIDE 40MG/4ML VIAL (J1940) IV SCH (16:35)
[2021-11-12 19:48] VITALS: BP 139/64
[2021-11-12] MEDS: ASPIRIN 81MG ENTERIC TABLET PO SCH (22:05)
[2021-11-12] MEDS: ROSUVASTATIN 10 MG TAB (CRESTOR) PO SCH (22:05)
[2021-11-12] MEDS: rOPINIRole 0.25 MG TAB(REQUIP) PO SCH (22:05)
[2021-11-13] VITALS (8 sets, daily range): BP systolic 103–142; BP diastolic 58–80
[2021-11-13] MEDS: IPRATROPIUM 0.5MG/ALBUTEROL 2.5MG INH SOL UD 3ML (DUONEB) NEB SCH ×4 (01:14→19:28)
[2021-11-13] MEDS: NORCO, ANEXSIA 5/325MG TABLET (HYDROcodone/ACETAMINOPHEN) PO PRN ×3 (05:38→22:19)
[2021-11-13 06:41] LABS: PHOSPHORUS LEVEL 3.2 MG/DL (2.5-4.9)
[2021-11-13 08:15] LABS: BASO % 0.1 % (0.0-1.0); EOS # 0.1 10^3/uL (0.0-0.5); EOS % 0.4 % (0.0-3.0); HEMATOCRIT 36.9 % (36.0-47.0); HEMOGLOBIN 11.3 g/dl (12.0-15.5); LYMPH # 2.7 10^3/uL (1.5-5.0); LYMPH % 14.6 % (24.0-44.0); MEAN CORPUSCULAR HEMOGLOBIN 27.4 pg (27.0-33.0); MEAN CORPUSCULAR HGB CONC 30.6 g/dl (32.0-36.5); MEAN CORPUSCULAR VOLUME 89.6 fl (80.0-96.0); MONO % 5.6 % (2.0-8.0); NEUTROPHILS # 14.7 10^3/uL (1.5-8.5); NEUTROPHILS % 78.5 % (36.0-66.0); PLATELET COUNT, AUTOMATED 209 10^3/uL (150-450); RED BLOOD COUNT 4.12 10^6/uL (4.00-5.40); WHITE BLOOD COUNT 18.6 10^3/uL (4.0-10.0)
[2021-11-13 08:30] LABS: CALCIUM LEVEL 9.1 MG/DL (8.8-10.2); CREATININE FOR GFR 1.48 MG/DL (0.55-1.30); GLOMERULAR FILTRATION RATE 36.5 (>39); POTASSIUM SERUM 4.7 MEQ/L (3.5-5.1)
[2021-11-13] MEDS: PREGABALIN 100 MG CAP (LYRICA) PO SCH ×2 (08:42→22:06)
[2021-11-13] MEDS: NYSTATIN 100,000 UNITS/GM TOPICAL PWD 15 GM TOP SCH ×2 (08:42→22:16)
[2021-11-13] MEDS: HEPARIN SOD (PORCINE) 5000UNITS/ML 1ML VIAL/SYRINGE SQ SCH ×2 (08:43→22:05)
[2021-11-13] MEDS: INSULIN LISPRO (NovoLOG) PER UNIT SC SCH ×4 (08:43→21:00)
[2021-11-13] MEDS: HumuLIN N INSULIN (NovoLIN N) PER UNIT SC SCH (08:44)
[2021-11-13] MEDS: FUROSEMIDE 40MG/4ML VIAL (J1940) IV SCH ×2 (08:44→17:27)
[2021-11-13] MEDS: DULoxetine 30MG CAPSULE (CYMBALTA) PO SCH ×2 (08:44→22:06)
[2021-11-13] MEDS: CARVedilol 6.25 MG TAB PO SCH ×2 (08:48→22:15)
[2021-11-13] MEDS: PANTOPRAZOLE 40MG TAB (PROTONIX) PO SCH (08:51)
[2021-11-13] MEDS: allopurinoL 300 MG TAB PO SCH (08:51)
[2021-11-13] MEDS: carisoprodoL 350 MG TAB PO PRN ×2 (09:29→17:28)
[2021-11-13 12:59] LABS: BILIRUBIN,DIRECT 0.1 MG/DL (0.0-0.2); BILIRUBIN,TOTAL 0.2 MG/DL (0.2-1.0); TOTAL PROTEIN 6.2 GM/DL (6.4-8.2)
[2021-11-13] MEDS: predniSONE 10 MG TAB PO SCH (13:17)
[2021-11-13] MEDS: MAGNESIUM OXIDE 400MG TAB (MAG-OX) PO SCH (13:17)
[2021-11-13] MEDS: FAMOTIDINE 20 MG TAB PO SCH (22:05)
[2021-11-13] MEDS: rOPINIRole 0.25 MG TAB(REQUIP) PO SCH (22:05)
[2021-11-13] MEDS: ASPIRIN 81MG ENTERIC TABLET PO SCH (22:05)
[2021-11-13] MEDS: ROSUVASTATIN 10 MG TAB (CRESTOR) PO SCH (22:06)
[2021-11-14] MEDS: carisoprodoL 350 MG TAB PO PRN ×2 (02:02→09:48)
[2021-11-14] MEDS: IPRATROPIUM 0.5MG/ALBUTEROL 2.5MG INH SOL UD 3ML (DUONEB) NEB SCH ×4 (02:54→19:51)
[2021-11-14] MEDS: NORCO, ANEXSIA 5/325MG TABLET (HYDROcodone/ACETAMINOPHEN) PO PRN ×2 (05:56→20:41)
[2021-11-14 05:58] VITALS: BP_SYST 113; BP_SYST 114; BP_DIAS 62; BP_DIAS 66; BP_DIAS 67
[2021-11-14 06:00] VITALS: BP 113/62
[2021-11-14 07:44] LABS: ALBUMIN 2.1 GM/DL (3.2-5.2); BILIRUBIN,DIRECT 0.1 MG/DL (0.0-0.2); BILIRUBIN,TOTAL 0.2 MG/DL (0.2-1.0); TOTAL PROTEIN 5.6 GM/DL (6.4-8.2)
[2021-11-14 07:57] LABS: CALCIUM LEVEL 8.3 MG/DL (8.8-10.2); CREATININE FOR GFR 1.4 MG/DL (0.55-1.30); GLOMERULAR FILTRATION RATE 38.9 (>39); POTASSIUM SERUM 5.1 MEQ/L (3.5-5.1)
[2021-11-14] MEDS ORDERED: HumuLIN N INSULIN (NovoLIN N) PER UNIT SC SCH (09:00)
[2021-11-14] MEDS: VALSARTAN 40MG TABLET (DIOVAN) PO SCH (09:00)
[2021-11-14] MEDS: allopurinoL 300 MG TAB PO SCH (09:45)
[2021-11-14] MEDS: MAGNESIUM OXIDE 400MG TAB (MAG-OX) PO SCH (09:45)
[2021-11-14] MEDS: DULoxetine 30MG CAPSULE (CYMBALTA) PO SCH ×2 (09:45→20:40)
[2021-11-14] MEDS: PREGABALIN 100 MG CAP (LYRICA) PO SCH ×2 (09:45→20:39)
[2021-11-14] MEDS: PANTOPRAZOLE 40MG TAB (PROTONIX) PO SCH (09:45)
[2021-11-14] MEDS: CARVedilol 3.125 MG TAB PO SCH ×2 (09:48→20:42)
[2021-11-14] MEDS: predniSONE 10 MG TAB PO SCH (09:49)
[2021-11-14] MEDS: FUROSEMIDE 40MG/4ML VIAL (J1940) IV SCH ×2 (09:53→17:25)
[2021-11-14] MEDS: HEPARIN SOD (PORCINE) 5000UNITS/ML 1ML VIAL/SYRINGE SQ SCH ×2 (09:53→20:42)
[2021-11-14] MEDS: NYSTATIN 100,000 UNITS/GM TOPICAL PWD 15 GM TOP SCH ×2 (09:54→20:43)
[2021-11-14] MEDS: INSULIN LISPRO (NovoLOG) PER UNIT SC SCH ×4 (09:55→20:42)
[2021-11-14 14:00] VITALS: BP 118/69
[2021-11-14] MEDS: ASPIRIN 81MG ENTERIC TABLET PO SCH (20:39)
[2021-11-14] MEDS: ROSUVASTATIN 10 MG TAB (CRESTOR) PO SCH (20:39)
[2021-11-14] MEDS: FAMOTIDINE 20 MG TAB PO SCH (20:40)
[2021-11-14] MEDS: rOPINIRole 0.25 MG TAB(REQUIP) PO SCH (20:40)
[2021-11-14 22:00] VITALS: BP 135/71
[2021-11-15] MEDS: IPRATROPIUM 0.5MG/ALBUTEROL 2.5MG INH SOL UD 3ML (DUONEB) NEB SCH ×2 (01:34→07:31)
[2021-11-15] MEDS: NORCO, ANEXSIA 5/325MG TABLET (HYDROcodone/ACETAMINOPHEN) PO PRN (04:48)
[2021-11-15 06:00] VITALS: BP 135/74
[2021-11-15 06:26] VITALS: BP_SYST 134; BP_SYST 135; BP_DIAS 74; BP_DIAS 75
[2021-11-15 06:36] LABS: BASO % 0.2 % (0.0-1.0); EOS # 0.2 10^3/uL (0.0-0.5); EOS % 0.8 % (0.0-3.0); HEMATOCRIT 35.7 % (36.0-47.0); HEMOGLOBIN 11.3 g/dl (12.0-15.5); LYMPH # 2.3 10^3/uL (1.5-5.0); LYMPH % 10.6 % (24.0-44.0); MEAN CORPUSCULAR HEMOGLOBIN 28.3 pg (27.0-33.0); MEAN CORPUSCULAR HGB CONC 31.7 g/dl (32.0-36.5); MEAN CORPUSCULAR VOLUME 89.5 fl (80.0-96.0); MONO # 1.5 10^3/uL (0.0-0.8); MONO % 6.6 % (2.0-8.0); NEUTROPHILS # 17.6 10^3/uL (1.5-8.5); NEUTROPHILS % 80.6 % (36.0-66.0); PLATELET COUNT, AUTOMATED 205 10^3/uL (150-450); RED BLOOD COUNT 3.99 10^6/uL (4.00-5.40); WHITE BLOOD COUNT 21.9 10^3/uL (4.0-10.0)
[2021-11-15 06:58] LABS: CALCIUM LEVEL 8.6 MG/DL (8.8-10.2); CREATININE FOR GFR 1.28 MG/DL (0.55-1.30); GLOMERULAR FILTRATION RATE 43.2 (>39); POTASSIUM SERUM 4.4 MEQ/L (3.5-5.1)
[2021-11-15] MEDS: HEPARIN SOD (PORCINE) 5000UNITS/ML 1ML VIAL/SYRINGE SQ SCH (08:13)
[2021-11-15 08:14] VITALS: BP 135/76
[2021-11-15] MEDS: PREGABALIN 100 MG CAP (LYRICA) PO SCH (08:14)
[2021-11-15] MEDS: VALSARTAN 40MG TABLET (DIOVAN) PO SCH (08:14)
[2021-11-15] MEDS: DULoxetine 30MG CAPSULE (CYMBALTA) PO SCH (08:14)
[2021-11-15] MEDS: allopurinoL 300 MG TAB PO SCH (08:14)
[2021-11-15] MEDS: PANTOPRAZOLE 40MG TAB (PROTONIX) PO SCH (08:14)
[2021-11-15] MEDS: INSULIN LISPRO (NovoLOG) PER UNIT SC SCH ×2 (08:15→12:27)
[2021-11-15] MEDS: predniSONE 10 MG TAB PO SCH (08:15)
[2021-11-15] MEDS: CARVedilol 3.125 MG TAB PO SCH (08:15)
[2021-11-15] MEDS: NYSTATIN 100,000 UNITS/GM TOPICAL PWD 15 GM TOP SCH (08:16)
[2021-11-15] MEDS: FUROSEMIDE 40MG/4ML VIAL (J1940) IV SCH (08:16)
[2021-11-15] MEDS: MAGNESIUM OXIDE 400MG TAB (MAG-OX) PO SCH (08:21)
[2021-11-15 08:32] LABS: BILIRUBIN,DIRECT 0.1 MG/DL (0.0-0.2); BILIRUBIN,TOTAL 0.3 MG/DL (0.2-1.0); TOTAL PROTEIN 5.7 GM/DL (6.4-8.2)
[2021-11-15] MEDS ORDERED: HumuLIN N INSULIN (NovoLIN N) PER UNIT SC SCH (09:00)
[2021-11-15] MEDS ORDERED: NYST10006 TOP (11:20)
[2021-11-15] MEDS ORDERED: VALS1TAB66 PO (11:20)
[2021-11-15] MEDS ORDERED: CARV6.25 PO (11:20)
== END 2021-11-15 15:03 | DRG 291 ==
LOC: M ED 20:43 → M ED INP 11-12 01:17 → M MSPAV 11-12 02:37
PROVIDERS: ADMIT Internal Medicine; ATTEND Internal Medicine Nephrology
DX: I13.0 Hypertensive heart and chronic kidney disease with heart failure and stage 1 through stage 4 chronic kidney disease, or unspecified chronic kidney disease (principal); I50.33 Acute on chronic diastolic (congestive) heart failure; N17.9 Acute kidney failure, unspecified; J96.11 Chronic respiratory failure with hypoxia; F11.20 Opioid dependence, uncomplicated; J44.1 Chronic obstructive pulmonary disease with (acute) exacerbation; K21.9 Gastro-esophageal reflux disease without esophagitis; E11.42 Type 2 diabetes mellitus with diabetic polyneuropathy; G25.81 Restless legs syndrome; J84.10 Pulmonary fibrosis, unspecified; N18.30 Chronic kidney disease, stage 3 unspecified; E87.5 Hyperkalemia; R74.01 Elevation of levels of liver transaminase levels; I25.10 Atherosclerotic heart disease of native coronary artery without angina pectoris; I27.20 Pulmonary hypertension, unspecified; E11.65 Type 2 diabetes mellitus with hyperglycemia; E11.22 Type 2 diabetes mellitus with diabetic chronic kidney disease; I27.81 Cor pulmonale (chronic); M10.9 Gout, unspecified; F17.200 Nicotine dependence, unspecified, uncomplicated; Z79.52 Long term (current) use of systemic steroids; R55 Syncope and collapse; Z79.899 Other long term (current) drug therapy; Z79.82 Long term (current) use of aspirin; Z99.81 Dependence on supplemental oxygen; Z66 Do not resuscitate; B37.2 Candidiasis of skin and nail; Z79.4 Long term (current) use of insulin

== ENCOUNTER 2021-11-15 11:28 | Inpatient (IN) | payer MEDICARE ==
[~2021-11-15] VITALS: Ht 160 cm; Wt 68.1 kg
[~2021-11-15 11:28] MED LIST changes: +D 50CAP2 PO; +GLUC1KIT IM; +HYDR-4517 PO; +NYST10006 TOP; +POTA10TA17 PO
[2021-11-15] MEDS ORDERED: ALBUTEROL 90 MCG/ACT 8GM HFA INHALER INH PRN (14:20)
[2021-11-15] MEDS ORDERED: NORCO, ANEXSIA 5/325MG TABLET (HYDROcodone/ACETAMINOPHEN) PO PRN (14:20)
[2021-11-15] MEDS ORDERED: NITROGLYCERIN 0.4 MG SUBL TABLET SL PRN (14:20)
[2021-11-15] MEDS ORDERED: DEXTROSE 50% 50 ML SYRINGE IV PRN (14:20)
[2021-11-15] MEDS ORDERED: GLUCOSE 4GM CHEW TABLET PO PRN (14:20)
[2021-11-15] MEDS ORDERED: GLUCAGON INJ 1MG VIAL SC PRN (14:20)
[2021-11-15 15:14] VITALS: BP 155/78
[2021-11-15] MEDS: COMBIVENT RESPIMAT 100-20MCG INHALER 4GM INH SCH ×2 (15:42→20:00)
[2021-11-15] MEDS: REMEDY PHYTOPLEX Z-GUARD PASTE 113GM TUBE (FROM STOREROOM PRODUCT) TOP SCH ×2 (16:00→20:10)
[2021-11-15] MEDS: INSULIN LISPRO (NovoLOG) PER UNIT SC SCH ×2 (16:58→20:08)
[2021-11-15] MEDS: ACETAMINOPHEN TAB 650MG DOSE (2X325MG) PO PRN (16:58)
[2021-11-15 19:42] VITALS: BP 146/73
[2021-11-15] MEDS: ROSUVASTATIN 10 MG TAB (CRESTOR) PO SCH (20:07)
[2021-11-15] MEDS: ASPIRIN 81MG ENTERIC TABLET PO SCH (20:08)
[2021-11-15] MEDS: HEPARIN SOD (PORCINE) 5000UNITS/ML 1ML VIAL/SYRINGE SC SCH (20:08)
[2021-11-15] MEDS: SENNA 8.6 MG TAB (SENOKOT) PO SCH (20:08)
[2021-11-15] MEDS: DOCUSATE SODIUM 100MG CAPSULE PO SCH (20:08)
[2021-11-15] MEDS: PREGABALIN 100 MG CAP (LYRICA) PO SCH (20:09)
[2021-11-15] MEDS: CARVedilol 3.125 MG TAB PO SCH (20:09)
[2021-11-15] MEDS: rOPINIRole 0.25 MG TAB(REQUIP) PO SCH (20:09)
[2021-11-15] MEDS: FAMOTIDINE 20 MG TAB PO SCH (20:09)
[2021-11-15] MEDS: DULoxetine 30MG CAPSULE (CYMBALTA) PO SCH (20:10)
[2021-11-15] MEDS: NYSTATIN 100,000 UNITS/GM TOPICAL PWD 15 GM TOP SCH (20:11)
[2021-11-16] MEDS: ACETAMINOPHEN TAB 650MG DOSE (2X325MG) PO PRN ×2 (02:25→08:54)
[2021-11-16] MEDS ORDERED: ACETAMINOPHEN TAB 650MG DOSE (2X325MG) PO ONE (03:00)
[2021-11-16 06:00] VITALS: BP 160/70
[2021-11-16 06:43] LABS: BASO # 0.1 10^3/uL (0.0-0.2); BASO % 0.2 % (0.0-1.0); EOS # 0.3 10^3/uL (0.0-0.5); EOS % 1.1 % (0.0-3.0); HEMATOCRIT 36.7 % (36.0-47.0); HEMOGLOBIN 11.6 g/dl (12.0-15.5); LYMPH # 2.5 10^3/uL (1.5-5.0); LYMPH % 11.3 % (24.0-44.0); MEAN CORPUSCULAR HEMOGLOBIN 27.8 pg (27.0-33.0); MEAN CORPUSCULAR HGB CONC 31.6 g/dl (32.0-36.5); MONO % 7.9 % (2.0-8.0); NEUTROPHILS # 17.3 10^3/uL (1.5-8.5); NEUTROPHILS % 78.4 % (36.0-66.0); PLATELET COUNT, AUTOMATED 217 10^3/uL (150-450); RED BLOOD COUNT 4.17 10^6/uL (4.00-5.40)
[2021-11-16 06:54] LABS: MONO # 1.7 10^3/uL (0.0-0.8)
[2021-11-16 07:17] LABS: ALBUMIN 2.1 GM/DL (3.2-5.2); BILIRUBIN,TOTAL 0.3 MG/DL (0.2-1.0); CALCIUM LEVEL 9.2 MG/DL (8.8-10.2); CREATININE FOR GFR 1.07 MG/DL (0.55-1.30); GLOMERULAR FILTRATION RATE 53.1 (>39); POTASSIUM SERUM 4.1 MEQ/L (3.5-5.1); TOTAL PROTEIN 5.8 GM/DL (6.4-8.2)
[2021-11-16] MEDS: COMBIVENT RESPIMAT 100-20MCG INHALER 4GM INH SCH ×4 (07:38→20:00)
[2021-11-16] MEDS: INSULIN LISPRO (NovoLOG) PER UNIT SC SCH ×4 (08:53→21:21)
[2021-11-16] MEDS: HEPARIN SOD (PORCINE) 5000UNITS/ML 1ML VIAL/SYRINGE SC SCH ×2 (08:53→21:20)
[2021-11-16] MEDS: HumuLIN N INSULIN (NovoLIN N) PER UNIT SC SCH (08:53)
[2021-11-16] MEDS: PANTOPRAZOLE 40MG TAB (PROTONIX) PO SCH (08:54)
[2021-11-16] MEDS: PREGABALIN 100 MG CAP (LYRICA) PO SCH ×2 (08:54→21:25)
[2021-11-16] MEDS: DOCUSATE SODIUM 100MG CAPSULE PO SCH ×2 (08:54→21:26)
[2021-11-16] MEDS: CARVedilol 3.125 MG TAB PO SCH ×2 (08:54→21:25)
[2021-11-16] MEDS: VALSARTAN 40MG TABLET (DIOVAN) PO SCH (08:55)
[2021-11-16] MEDS: allopurinoL 300 MG TAB PO SCH (08:55)
[2021-11-16] MEDS: MAGNESIUM OXIDE 400MG TAB (MAG-OX) PO SCH (08:55)
[2021-11-16] MEDS: DULoxetine 30MG CAPSULE (CYMBALTA) PO SCH ×2 (08:55→21:24)
[2021-11-16] MEDS: REMEDY PHYTOPLEX Z-GUARD PASTE 113GM TUBE (FROM STOREROOM PRODUCT) TOP SCH ×3 (08:56→21:21)
[2021-11-16] MEDS: NYSTATIN 100,000 UNITS/GM TOPICAL PWD 15 GM TOP SCH ×2 (08:56→21:21)
[2021-11-16] MEDS: FUROSEMIDE 20 MG TAB PO SCH ×2 (12:25→17:23)
[2021-11-16] MEDS: LACTOBACILLUS ACIDOPHILUS CAP (BACID) PO SCH ×3 (13:36→21:23)
[2021-11-16] MEDS: CEPHALEXIN 500 MG CAP PO SCH ×2 (13:36→17:23)
[2021-11-16 14:00] VITALS: BP 104/55
[2021-11-16 20:00] VITALS: BP 147/67
[2021-11-16] MEDS: rOPINIRole 0.25 MG TAB(REQUIP) PO SCH (21:20)
[2021-11-16] MEDS: ROSUVASTATIN 10 MG TAB (CRESTOR) PO SCH (21:24)
[2021-11-16] MEDS: SENNA 8.6 MG TAB (SENOKOT) PO SCH (21:25)
[2021-11-16] MEDS: FAMOTIDINE 20 MG TAB PO SCH (21:25)
[2021-11-16] MEDS: ASPIRIN 81MG ENTERIC TABLET PO SCH (21:25)
[2021-11-17] MEDS: CEPHALEXIN 500 MG CAP PO SCH ×2 (00:09→06:06)
[2021-11-17 06:00] VITALS: BP 117/63
[2021-11-17 07:06] LABS: BASO # 0.1 10^3/uL (0.0-0.2); BASO % 0.3 % (0.0-1.0); EOS # 0.3 10^3/uL (0.0-0.5); EOS % 1.2 % (0.0-3.0); HEMOGLOBIN 11.2 g/dl (12.0-15.5); LYMPH # 2.8 10^3/uL (1.5-5.0); LYMPH % 11.9 % (24.0-44.0); MEAN CORPUSCULAR HEMOGLOBIN 27.4 pg (27.0-33.0); MEAN CORPUSCULAR HGB CONC 31.1 g/dl (32.0-36.5); NEUTROPHILS # 18.1 10^3/uL (1.5-8.5); NEUTROPHILS % 76.5 % (36.0-66.0); PLATELET COUNT, AUTOMATED 215 10^3/uL (150-450); RED BLOOD COUNT 4.09 10^6/uL (4.00-5.40); WHITE BLOOD COUNT 23.6 10^3/uL (4.0-10.0)
[2021-11-17] MEDS: INSULIN LISPRO (NovoLOG) PER UNIT SC SCH ×4 (07:30→22:03)
[2021-11-17] MEDS: HumuLIN N INSULIN (NovoLIN N) PER UNIT SC SCH (07:30)
[2021-11-17 07:32] LABS: MONO # 2.1 10^3/uL (0.0-0.8)
[2021-11-17 07:35] LABS: C REACTIVE PROTEIN QUANTITATIV 18.2 MG/DL (0.00-0.30); CALCIUM LEVEL 8.9 MG/DL (8.8-10.2); CREATININE FOR GFR 1.29 MG/DL (0.55-1.30); GLOMERULAR FILTRATION RATE 42.8 (>39); POTASSIUM SERUM 3.9 MEQ/L (3.5-5.1)
[2021-11-17 07:39] LABS: ERYTHROCYTE SEDIMENTATION RATE 79 mm/hr (0-30)
[2021-11-17] MEDS: ACETAMINOPHEN TAB 650MG DOSE (2X325MG) PO PRN (07:53)
[2021-11-17] MEDS: allopurinoL 300 MG TAB PO SCH (07:53)
[2021-11-17] MEDS: MAGNESIUM OXIDE 400MG TAB (MAG-OX) PO SCH (07:54)
[2021-11-17] MEDS: CARVedilol 3.125 MG TAB PO SCH ×2 (07:55→22:05)
[2021-11-17] MEDS: PREGABALIN 100 MG CAP (LYRICA) PO SCH (07:55)
[2021-11-17] MEDS: DOCUSATE SODIUM 100MG CAPSULE PO SCH (07:55)
[2021-11-17] MEDS: DULoxetine 30MG CAPSULE (CYMBALTA) PO SCH ×2 (07:55→22:06)
[2021-11-17] MEDS: FUROSEMIDE 20 MG TAB PO SCH (07:55)
[2021-11-17] MEDS: LACTOBACILLUS ACIDOPHILUS CAP (BACID) PO SCH ×5 (07:55→22:04)
[2021-11-17] MEDS: VALSARTAN 40MG TABLET (DIOVAN) PO SCH (07:56)
[2021-11-17] MEDS: PANTOPRAZOLE 40MG TAB (PROTONIX) PO SCH (07:56)
[2021-11-17] MEDS: NYSTATIN 100,000 UNITS/GM TOPICAL PWD 15 GM TOP SCH ×2 (07:56→22:07)
[2021-11-17] MEDS: HEPARIN SOD (PORCINE) 5000UNITS/ML 1ML VIAL/SYRINGE SC SCH ×2 (07:56→22:04)
[2021-11-17] MEDS: REMEDY PHYTOPLEX Z-GUARD PASTE 113GM TUBE (FROM STOREROOM PRODUCT) TOP SCH ×3 (07:57→22:07)
[2021-11-17] MEDS: COMBIVENT RESPIMAT 100-20MCG INHALER 4GM INH SCH ×4 (08:00→20:00)
[2021-11-17] MEDS: PIPERACILLIN/TAZOBACTAM SOD 3.375 GM in D5W MINI-BAG PLUS 50 ML IV SCH ×2 (12:13→18:01)
[2021-11-17 15:09] LABS: ABG BASE EXCESS 5.1 (-2.0-2.0); ABG HCO3 28.3 MEQ/L (22.0-26.0); ABG O2 SATURATION 90.5 % (95.0-99.0); ABG PARTIAL PRESSURE CO2 36.7 mmHg (35.0-45.0); ABG PARTIAL PRESSURE O2 58.4 mmHg (75.0-100.0); ABG STANDARD HCO3 28.9 MEQ/L (22.0-26.0); ABG TOTAL CO2 29.4 MEQ/L (23.0-31.0); ABG pH (ARTERIAL) 7.505 UNITS (7.350-7.450)
[2021-11-17] MEDS: guaiFENesin SYRUP 200MG 10ML UDC PO SCH ×2 (18:01→22:04)
[2021-11-17 19:57] VITALS: BP 124/60
[2021-11-17] MEDS ORDERED: HumuLIN N INSULIN (NovoLIN N) PER UNIT SC SCH (21:00)
[2021-11-17] MEDS: ASPIRIN 81MG ENTERIC TABLET PO SCH (22:04)
[2021-11-17] MEDS: ROSUVASTATIN 10 MG TAB (CRESTOR) PO SCH (22:04)
[2021-11-17] MEDS: PREGABALIN 75 MG CAP(LYRICA) PO SCH (22:05)
[2021-11-17] MEDS: FAMOTIDINE 20 MG TAB PO SCH (22:05)
[2021-11-17] MEDS: rOPINIRole 0.25 MG TAB(REQUIP) PO SCH (22:06)
[2021-11-18] MEDS: PIPERACILLIN/TAZOBACTAM SOD 3.375 GM in D5W MINI-BAG PLUS 50 ML IV SCH ×4 (00:45→18:12)
[2021-11-18 04:58] VITALS: BP 136/66
[2021-11-18 06:59] LABS: BASO # 0.1 10^3/uL (0.0-0.2); BASO % 0.4 % (0.0-1.0); EOS # 0.3 10^3/uL (0.0-0.5); EOS % 1.6 % (0.0-3.0); HEMATOCRIT 34.6 % (36.0-47.0); HEMOGLOBIN 10.7 g/dl (12.0-15.5); LYMPH # 2.5 10^3/uL (1.5-5.0); LYMPH % 12.7 % (24.0-44.0); MEAN CORPUSCULAR HGB CONC 30.9 g/dl (32.0-36.5); MEAN CORPUSCULAR VOLUME 87.4 fl (80.0-96.0); MONO % 8.8 % (2.0-8.0); NEUTROPHILS # 15.1 10^3/uL (1.5-8.5); NEUTROPHILS % 75.7 % (36.0-66.0); PLATELET COUNT, AUTOMATED 214 10^3/uL (150-450); RED BLOOD COUNT 3.96 10^6/uL (4.00-5.40)
[2021-11-18 07:25] LABS: MONO # 1.8 10^3/uL (0.0-0.8)
[2021-11-18 07:30] LABS: C REACTIVE PROTEIN QUANTITATIV 20.7 MG/DL (0.00-0.30); CALCIUM LEVEL 8.6 MG/DL (8.8-10.2); CREATININE FOR GFR 1.55 MG/DL (0.55-1.30); GLOMERULAR FILTRATION RATE 34.6 (>39); POTASSIUM SERUM 3.8 MEQ/L (3.5-5.1)
[2021-11-18] MEDS: COMBIVENT RESPIMAT 100-20MCG INHALER 4GM INH SCH ×4 (07:40→19:58)
[2021-11-18 07:41] LABS: ERYTHROCYTE SEDIMENTATION RATE 81 mm/hr (0-30)
[2021-11-18] MEDS: INSULIN LISPRO (NovoLOG) PER UNIT SC SCH ×4 (08:25→20:21)
[2021-11-18] MEDS: LACTOBACILLUS ACIDOPHILUS CAP (BACID) PO SCH ×4 (08:25→20:19)
[2021-11-18] MEDS: HEPARIN SOD (PORCINE) 5000UNITS/ML 1ML VIAL/SYRINGE SC SCH ×2 (08:25→20:20)
[2021-11-18] MEDS: REMEDY PHYTOPLEX Z-GUARD PASTE 113GM TUBE (FROM STOREROOM PRODUCT) TOP SCH ×3 (08:26→20:22)
[2021-11-18] MEDS: MAGNESIUM OXIDE 400MG TAB (MAG-OX) PO SCH (08:26)
[2021-11-18] MEDS: NYSTATIN 100,000 UNITS/GM TOPICAL PWD 15 GM TOP SCH ×2 (08:26→20:22)
[2021-11-18] MEDS: PANTOPRAZOLE 40MG TAB (PROTONIX) PO SCH (08:27)
[2021-11-18] MEDS: guaiFENesin SYRUP 200MG 10ML UDC PO SCH ×3 (08:27→20:20)
[2021-11-18] MEDS: DULoxetine 30MG CAPSULE (CYMBALTA) PO SCH ×2 (08:27→20:20)
[2021-11-18] MEDS: CARVedilol 3.125 MG TAB PO SCH ×2 (08:27→20:19)
[2021-11-18] MEDS: allopurinoL 300 MG TAB PO SCH (08:27)
[2021-11-18] MEDS: PREGABALIN 75 MG CAP(LYRICA) PO SCH ×2 (08:27→20:19)
[2021-11-18] MEDS: ACETAMINOPHEN TAB 650MG DOSE (2X325MG) PO PRN ×2 (10:25→20:18)
[2021-11-18 14:00] VITALS: BP 90/52
[2021-11-18 19:45] VITALS: BP 113/57
[2021-11-18] MEDS: ROSUVASTATIN 10 MG TAB (CRESTOR) PO SCH (20:18)
[2021-11-18] MEDS: FAMOTIDINE 20 MG TAB PO SCH (20:19)
[2021-11-18] MEDS: rOPINIRole 0.25 MG TAB(REQUIP) PO SCH (20:19)
[2021-11-18] MEDS: ASPIRIN 81MG ENTERIC TABLET PO SCH (20:19)
[2021-11-18] MEDS: LEVEMIR (INSULIN DETEMIR) 1 UNITS/0.01ML SC SCH (20:21)
[2021-11-19] MEDS: PIPERACILLIN/TAZOBACTAM SOD 3.375 GM in D5W MINI-BAG PLUS 50 ML IV SCH ×5 (00:16→23:38)
[2021-11-19 05:07] VITALS: BP 123/64
[2021-11-19] MEDS: COMBIVENT RESPIMAT 100-20MCG INHALER 4GM INH SCH ×4 (07:25→20:15)
[2021-11-19] MEDS: HEPARIN SOD (PORCINE) 5000UNITS/ML 1ML VIAL/SYRINGE SC SCH ×2 (08:25→20:29)
[2021-11-19] MEDS: INSULIN LISPRO (NovoLOG) PER UNIT SC SCH ×4 (08:25→20:28)
[2021-11-19] MEDS: LEVEMIR (INSULIN DETEMIR) 1 UNITS/0.01ML SC SCH ×2 (08:25→20:28)
[2021-11-19] MEDS: guaiFENesin SYRUP 200MG 10ML UDC PO SCH ×3 (08:25→20:24)
[2021-11-19] MEDS: PREGABALIN 75 MG CAP(LYRICA) PO SCH ×2 (08:26→20:23)
[2021-11-19] MEDS: DULoxetine 30MG CAPSULE (CYMBALTA) PO SCH ×2 (08:26→20:23)
[2021-11-19] MEDS: CARVedilol 3.125 MG TAB PO SCH ×2 (08:26→20:28)
[2021-11-19] MEDS: allopurinoL 300 MG TAB PO SCH (08:26)
[2021-11-19] MEDS: LACTOBACILLUS ACIDOPHILUS CAP (BACID) PO SCH ×4 (08:27→20:23)
[2021-11-19] MEDS: PANTOPRAZOLE 40MG TAB (PROTONIX) PO SCH (08:27)
[2021-11-19] MEDS: MAGNESIUM OXIDE 400MG TAB (MAG-OX) PO SCH (08:27)
[2021-11-19] MEDS: NYSTATIN 100,000 UNITS/GM TOPICAL PWD 15 GM TOP SCH ×2 (08:28→20:29)
[2021-11-19] MEDS: REMEDY PHYTOPLEX Z-GUARD PASTE 113GM TUBE (FROM STOREROOM PRODUCT) TOP SCH ×3 (08:29→20:29)
[2021-11-19] MEDS: ACETAMINOPHEN TAB 650MG DOSE (2X325MG) PO PRN ×2 (08:42→20:24)
[2021-11-19 15:00] VITALS: BP 120/80
[2021-11-19 20:11] VITALS: BP 125/60
[2021-11-19] MEDS: ASPIRIN 81MG ENTERIC TABLET PO SCH (20:23)
[2021-11-19] MEDS: rOPINIRole 0.25 MG TAB(REQUIP) PO SCH (20:23)
[2021-11-19] MEDS: ROSUVASTATIN 10 MG TAB (CRESTOR) PO SCH (20:25)
[2021-11-19] MEDS: FAMOTIDINE 20 MG TAB PO SCH (20:26)
[2021-11-20] MEDS: PIPERACILLIN/TAZOBACTAM SOD 3.375 GM in D5W MINI-BAG PLUS 50 ML IV SCH ×2 (05:21→12:27)
[2021-11-20 05:55] VITALS: BP 134/76
[2021-11-20 06:19] LABS: BASO % 0.2 % (0.0-1.0); EOS # 0.3 10^3/uL (0.0-0.5); EOS % 2.2 % (0.0-3.0); HEMATOCRIT 33.8 % (36.0-47.0); HEMOGLOBIN 10.6 g/dl (12.0-15.5); LYMPH # 2.2 10^3/uL (1.5-5.0); LYMPH % 16.8 % (24.0-44.0); MEAN CORPUSCULAR HEMOGLOBIN 26.8 pg (27.0-33.0); MEAN CORPUSCULAR HGB CONC 31.4 g/dl (32.0-36.5); MEAN CORPUSCULAR VOLUME 85.6 fl (80.0-96.0); MONO # 1.3 10^3/uL (0.0-0.8); MONO % 9.7 % (2.0-8.0); NEUTROPHILS # 9.2 10^3/uL (1.5-8.5); NEUTROPHILS % 70.5 % (36.0-66.0); PLATELET COUNT, AUTOMATED 195 10^3/uL (150-450); RED BLOOD COUNT 3.95 10^6/uL (4.00-5.40)
[2021-11-20 06:38] LABS: C REACTIVE PROTEIN QUANTITATIV 12.9 MG/DL (0.00-0.30); CALCIUM LEVEL 8.5 MG/DL (8.8-10.2); CREATININE FOR GFR 1.74 MG/DL (0.55-1.30); GLOMERULAR FILTRATION RATE 30.3 (>39); POTASSIUM SERUM 4.1 MEQ/L (3.5-5.1)
[2021-11-20] MEDS: COMBIVENT RESPIMAT 100-20MCG INHALER 4GM INH SCH ×4 (07:26→20:28)
[2021-11-20] MEDS: INSULIN LISPRO (NovoLOG) PER UNIT SC SCH ×4 (08:20→21:00)
[2021-11-20] MEDS: HEPARIN SOD (PORCINE) 5000UNITS/ML 1ML VIAL/SYRINGE SC SCH ×2 (08:20→21:10)
[2021-11-20] MEDS: LEVEMIR (INSULIN DETEMIR) 1 UNITS/0.01ML SC SCH ×2 (08:20→21:12)
[2021-11-20] MEDS: DULoxetine 30MG CAPSULE (CYMBALTA) PO SCH ×2 (08:21→21:11)
[2021-11-20] MEDS: guaiFENesin SYRUP 200MG 10ML UDC PO SCH ×3 (08:21→21:11)
[2021-11-20] MEDS: MAGNESIUM OXIDE 400MG TAB (MAG-OX) PO SCH (08:21)
[2021-11-20] MEDS: LACTOBACILLUS ACIDOPHILUS CAP (BACID) PO SCH ×4 (08:21→21:11)
[2021-11-20] MEDS: PREGABALIN 75 MG CAP(LYRICA) PO SCH (08:21)
[2021-11-20] MEDS: PANTOPRAZOLE 40MG TAB (PROTONIX) PO SCH (08:21)
[2021-11-20] MEDS: allopurinoL 300 MG TAB PO SCH (08:22)
[2021-11-20] MEDS: NYSTATIN 100,000 UNITS/GM TOPICAL PWD 15 GM TOP SCH ×2 (08:22→21:12)
[2021-11-20] MEDS: REMEDY PHYTOPLEX Z-GUARD PASTE 113GM TUBE (FROM STOREROOM PRODUCT) TOP SCH ×3 (08:23→21:13)
[2021-11-20] MEDS: ACETAMINOPHEN TAB 650MG DOSE (2X325MG) PO PRN (08:29)
[2021-11-20] MEDS: CARVedilol 3.125 MG TAB PO SCH ×2 (08:30→21:11)
[2021-11-20 14:00] VITALS: BP 115/55
[2021-11-20] MEDS: MOXIFLOXACIN 400 MG TAB PO SCH (18:47)
[2021-11-20 19:33] VITALS: BP 105/57
[2021-11-20] MEDS: ROSUVASTATIN 10 MG TAB (CRESTOR) PO SCH (21:10)
[2021-11-20] MEDS: PREGABALIN 100 MG CAP (LYRICA) PO SCH (21:11)
[2021-11-20] MEDS: rOPINIRole 0.25 MG TAB(REQUIP) PO SCH (21:11)
[2021-11-20] MEDS: ASPIRIN 81MG ENTERIC TABLET PO SCH (21:11)
[2021-11-20] MEDS: FAMOTIDINE 20 MG TAB PO SCH (21:11)
[2021-11-21] MEDS: ACETAMINOPHEN TAB 650MG DOSE (2X325MG) PO PRN ×2 (00:04→13:12)
[2021-11-21 05:29] VITALS: BP 132/70
[2021-11-21] MEDS: COMBIVENT RESPIMAT 100-20MCG INHALER 4GM INH SCH ×4 (07:23→20:14)
[2021-11-21 07:31] LABS: CALCIUM LEVEL 8.5 MG/DL (8.8-10.2); CREATININE FOR GFR 1.64 MG/DL (0.55-1.30); GLOMERULAR FILTRATION RATE 32.4 (>39); POTASSIUM SERUM 3.9 MEQ/L (3.5-5.1)
[2021-11-21] MEDS: REMEDY PHYTOPLEX Z-GUARD PASTE 113GM TUBE (FROM STOREROOM PRODUCT) TOP SCH ×3 (09:00→21:37)
[2021-11-21] MEDS: PANTOPRAZOLE 40MG TAB (PROTONIX) PO SCH (09:08)
[2021-11-21] MEDS: INSULIN LISPRO (NovoLOG) PER UNIT SC SCH ×4 (09:08→21:00)
[2021-11-21] MEDS: HEPARIN SOD (PORCINE) 5000UNITS/ML 1ML VIAL/SYRINGE SC SCH ×2 (09:08→21:36)
[2021-11-21] MEDS: LEVEMIR (INSULIN DETEMIR) 1 UNITS/0.01ML SC SCH ×2 (09:08→21:35)
[2021-11-21] MEDS: MAGNESIUM OXIDE 400MG TAB (MAG-OX) PO SCH (09:09)
[2021-11-21] MEDS: PREGABALIN 100 MG CAP (LYRICA) PO SCH ×2 (09:09→21:35)
[2021-11-21] MEDS: guaiFENesin SYRUP 200MG 10ML UDC PO SCH ×3 (09:09→21:34)
[2021-11-21] MEDS: LACTOBACILLUS ACIDOPHILUS CAP (BACID) PO SCH ×4 (09:09→21:35)
[2021-11-21] MEDS: CARVedilol 3.125 MG TAB PO SCH ×2 (09:09→21:36)
[2021-11-21] MEDS: DULoxetine 30MG CAPSULE (CYMBALTA) PO SCH ×2 (09:09→21:35)
[2021-11-21] MEDS: allopurinoL 300 MG TAB PO SCH (09:09)
[2021-11-21] MEDS: NYSTATIN 100,000 UNITS/GM TOPICAL PWD 15 GM TOP SCH ×2 (09:10→21:37)
[2021-11-21] MEDS: MOXIFLOXACIN 400 MG TAB PO SCH (18:19)
[2021-11-21] MEDS: ROSUVASTATIN 10 MG TAB (CRESTOR) PO SCH (21:35)
[2021-11-21] MEDS: ASPIRIN 81MG ENTERIC TABLET PO SCH (21:35)
[2021-11-21] MEDS: rOPINIRole 0.25 MG TAB(REQUIP) PO SCH (21:35)
[2021-11-21] MEDS: FAMOTIDINE 20 MG TAB PO SCH (21:36)
[2021-11-21 23:40] VITALS: BP 142/68
[2021-11-22 05:43] VITALS: BP 127/58
[2021-11-22] MEDS: ACETAMINOPHEN TAB 650MG DOSE (2X325MG) PO PRN (06:22)
[2021-11-22 07:12] LABS: CALCIUM LEVEL 8.7 MG/DL (8.8-10.2); CREATININE FOR GFR 1.37 MG/DL (0.55-1.30); GLOMERULAR FILTRATION RATE 39.9 (>39); MAGNESIUM LEVEL 1.7 MG/DL (1.8-2.4); PHOSPHORUS LEVEL 2.4 MG/DL (2.5-4.9); POTASSIUM SERUM 4.5 MEQ/L (3.5-5.1)
[2021-11-22] MEDS: COMBIVENT RESPIMAT 100-20MCG INHALER 4GM INH SCH ×4 (07:13→19:38)
[2021-11-22] MEDS: PANTOPRAZOLE 40MG TAB (PROTONIX) PO SCH (08:41)
[2021-11-22] MEDS: guaiFENesin SYRUP 200MG 10ML UDC PO SCH ×3 (08:41→20:29)
[2021-11-22] MEDS: PREGABALIN 100 MG CAP (LYRICA) PO SCH ×2 (08:41→20:29)
[2021-11-22] MEDS: LEVEMIR (INSULIN DETEMIR) 1 UNITS/0.01ML SC SCH ×2 (08:42→20:31)
[2021-11-22] MEDS: INSULIN LISPRO (NovoLOG) PER UNIT SC SCH ×4 (08:42→21:00)
[2021-11-22] MEDS: HEPARIN SOD (PORCINE) 5000UNITS/ML 1ML VIAL/SYRINGE SC SCH ×2 (08:42→20:30)
[2021-11-22] MEDS: allopurinoL 300 MG TAB PO SCH (08:43)
[2021-11-22] MEDS: LACTOBACILLUS ACIDOPHILUS CAP (BACID) PO SCH ×4 (08:43→20:30)
[2021-11-22] MEDS: MAGNESIUM OXIDE 400MG TAB (MAG-OX) PO SCH (08:43)
[2021-11-22] MEDS: CARVedilol 3.125 MG TAB PO SCH ×2 (08:43→20:30)
[2021-11-22] MEDS: DULoxetine 30MG CAPSULE (CYMBALTA) PO SCH ×2 (08:43→20:29)
[2021-11-22] MEDS: NYSTATIN 100,000 UNITS/GM TOPICAL PWD 15 GM TOP SCH ×2 (08:44→20:31)
[2021-11-22] MEDS: REMEDY PHYTOPLEX Z-GUARD PASTE 113GM TUBE (FROM STOREROOM PRODUCT) TOP SCH ×3 (08:44→20:32)
[2021-11-22 14:00] VITALS: BP 134/70
[2021-11-22] MEDS: MOXIFLOXACIN 400 MG TAB PO SCH (18:02)
[2021-11-22 19:56] VITALS: BP 140/67
[2021-11-22] MEDS: ASPIRIN 81MG ENTERIC TABLET PO SCH (20:29)
[2021-11-22] MEDS: FAMOTIDINE 20 MG TAB PO SCH (20:29)
[2021-11-22] MEDS: ROSUVASTATIN 10 MG TAB (CRESTOR) PO SCH (20:29)
[2021-11-22] MEDS: rOPINIRole 0.25 MG TAB(REQUIP) PO SCH (20:30)
[2021-11-23 05:57] VITALS: BP 141/72
[2021-11-23] MEDS: INSULIN LISPRO (NovoLOG) PER UNIT SC SCH ×4 (07:19→21:00)
[2021-11-23] MEDS: COMBIVENT RESPIMAT 100-20MCG INHALER 4GM INH SCH ×3 (07:43→20:53)
[2021-11-23] MEDS: LACTOBACILLUS ACIDOPHILUS CAP (BACID) PO SCH ×4 (08:59→21:58)
[2021-11-23] MEDS: DULoxetine 30MG CAPSULE (CYMBALTA) PO SCH ×2 (09:00→21:59)
[2021-11-23] MEDS: PREGABALIN 100 MG CAP (LYRICA) PO SCH ×2 (09:00→21:58)
[2021-11-23] MEDS: CARVedilol 3.125 MG TAB PO SCH ×2 (09:00→21:59)
[2021-11-23] MEDS: PANTOPRAZOLE 40MG TAB (PROTONIX) PO SCH (09:01)
[2021-11-23] MEDS: guaiFENesin SYRUP 200MG 10ML UDC PO SCH ×3 (09:01→21:59)
[2021-11-23] MEDS: MAGNESIUM OXIDE 400MG TAB (MAG-OX) PO SCH ×2 (09:01→21:58)
[2021-11-23] MEDS: allopurinoL 300 MG TAB PO SCH (09:02)
[2021-11-23] MEDS: HEPARIN SOD (PORCINE) 5000UNITS/ML 1ML VIAL/SYRINGE SC SCH ×2 (09:02→22:00)
[2021-11-23] MEDS: NYSTATIN 100,000 UNITS/GM TOPICAL PWD 15 GM TOP SCH ×2 (09:03→22:01)
[2021-11-23] MEDS: LEVEMIR (INSULIN DETEMIR) 1 UNITS/0.01ML SC SCH ×2 (09:03→21:59)
[2021-11-23] MEDS: ACETAMINOPHEN TAB 650MG DOSE (2X325MG) PO PRN ×2 (09:04→22:09)
[2021-11-23] MEDS: REMEDY PHYTOPLEX Z-GUARD PASTE 113GM TUBE (FROM STOREROOM PRODUCT) TOP SCH ×3 (09:05→22:01)
[2021-11-23 09:17] LABS: BASO # 0.1 10^3/uL (0.0-0.2); BASO % 0.3 % (0.0-1.0); EOS # 0.3 10^3/uL (0.0-0.5); EOS % 2.1 % (0.0-3.0); HEMATOCRIT 35.1 % (36.0-47.0); HEMOGLOBIN 10.8 g/dl (12.0-15.5); LYMPH # 2.5 10^3/uL (1.5-5.0); LYMPH % 15.8 % (24.0-44.0); MEAN CORPUSCULAR HEMOGLOBIN 27.2 pg (27.0-33.0); MEAN CORPUSCULAR HGB CONC 30.8 g/dl (32.0-36.5); MEAN CORPUSCULAR VOLUME 88.4 fl (80.0-96.0); MONO % 10.7 % (2.0-8.0); NEUTROPHILS % 70.4 % (36.0-66.0); PLATELET COUNT, AUTOMATED 246 10^3/uL (150-450); RED BLOOD COUNT 3.97 10^6/uL (4.00-5.40); WHITE BLOOD COUNT 15.6 10^3/uL (4.0-10.0)
[2021-11-23 09:44] LABS: MONO # 1.7 10^3/uL (0.0-0.8)
[2021-11-23 09:45] LABS: CREATININE FOR GFR 1.48 MG/DL (0.55-1.30); GLOMERULAR FILTRATION RATE 36.5 (>39); POTASSIUM SERUM 4.4 MEQ/L (3.5-5.1)
[2021-11-23 14:00] VITALS: BP 135/63
[2021-11-23] MEDS: MOXIFLOXACIN 400 MG TAB PO SCH (18:02)
[2021-11-23 20:00] VITALS: BP 147/75
[2021-11-23] MEDS: ROSUVASTATIN 10 MG TAB (CRESTOR) PO SCH (21:58)
[2021-11-23] MEDS: rOPINIRole 0.25 MG TAB(REQUIP) PO SCH (21:58)
[2021-11-23] MEDS: ASPIRIN 81MG ENTERIC TABLET PO SCH (21:58)
[2021-11-23] MEDS: FAMOTIDINE 20 MG TAB PO SCH (21:59)
[2021-11-24 06:00] VITALS: BP 130/66
[2021-11-24] MEDS: INSULIN LISPRO (NovoLOG) PER UNIT SC SCH ×4 (06:29→20:01)
[2021-11-24] MEDS: COMBIVENT RESPIMAT 100-20MCG INHALER 4GM INH SCH ×4 (07:36→19:56)
[2021-11-24] MEDS: PANTOPRAZOLE 40MG TAB (PROTONIX) PO SCH (07:38)
[2021-11-24] MEDS: allopurinoL 300 MG TAB PO SCH (07:38)
[2021-11-24] MEDS: PREGABALIN 100 MG CAP (LYRICA) PO SCH ×2 (07:38→20:32)
[2021-11-24] MEDS: HEPARIN SOD (PORCINE) 5000UNITS/ML 1ML VIAL/SYRINGE SC SCH ×2 (07:38→20:32)
[2021-11-24] MEDS: CARVedilol 3.125 MG TAB PO SCH ×2 (07:38→20:34)
[2021-11-24] MEDS: MAGNESIUM OXIDE 400MG TAB (MAG-OX) PO SCH ×2 (07:38→20:33)
[2021-11-24] MEDS: LACTOBACILLUS ACIDOPHILUS CAP (BACID) PO SCH ×4 (07:38→20:33)
[2021-11-24] MEDS: DULoxetine 30MG CAPSULE (CYMBALTA) PO SCH ×2 (07:39→20:32)
[2021-11-24] MEDS: guaiFENesin SYRUP 200MG 10ML UDC PO SCH ×3 (07:39→20:32)
[2021-11-24] MEDS: NYSTATIN 100,000 UNITS/GM TOPICAL PWD 15 GM TOP SCH ×2 (07:40→20:35)
[2021-11-24] MEDS: LEVEMIR (INSULIN DETEMIR) 1 UNITS/0.01ML SC SCH ×2 (07:40→20:34)
[2021-11-24] MEDS: REMEDY PHYTOPLEX Z-GUARD PASTE 113GM TUBE (FROM STOREROOM PRODUCT) TOP SCH ×3 (07:44→20:35)
[2021-11-24] MEDS: ACETAMINOPHEN TAB 650MG DOSE (2X325MG) PO PRN (10:04)
[2021-11-24 14:00] VITALS: BP 110/56
[2021-11-24] MEDS: ACETAMINOPHEN 500 MG TAB PO SCH ×2 (15:48→20:33)
[2021-11-24 20:00] VITALS: BP 125/60
[2021-11-24] MEDS: rOPINIRole 0.25 MG TAB(REQUIP) PO SCH (20:33)
[2021-11-24] MEDS: ASPIRIN 81MG ENTERIC TABLET PO SCH (20:33)
[2021-11-24] MEDS: FAMOTIDINE 20 MG TAB PO SCH (20:34)
[2021-11-24] MEDS: ROSUVASTATIN 10 MG TAB (CRESTOR) PO SCH (20:34)
[2021-11-25 06:00] VITALS: BP 137/62
[2021-11-25 07:00] LABS: BASO # 0.1 10^3/uL (0.0-0.2); BASO % 0.5 % (0.0-1.0); EOS # 0.3 10^3/uL (0.0-0.5); EOS % 3.1 % (0.0-3.0); HEMATOCRIT 31.6 % (36.0-47.0); HEMOGLOBIN 9.8 g/dl (12.0-15.5); LYMPH # 1.8 10^3/uL (1.5-5.0); LYMPH % 17.7 % (24.0-44.0); MEAN CORPUSCULAR HEMOGLOBIN 26.5 pg (27.0-33.0); MEAN CORPUSCULAR VOLUME 85.4 fl (80.0-96.0); MONO # 1.2 10^3/uL (0.0-0.8); MONO % 11.9 % (2.0-8.0); NEUTROPHILS # 6.7 10^3/uL (1.5-8.5); NEUTROPHILS % 66.3 % (36.0-66.0); PLATELET COUNT, AUTOMATED 247 10^3/uL (150-450); WHITE BLOOD COUNT 10.1 10^3/uL (4.0-10.0)
[2021-11-25 07:19] LABS: CALCIUM LEVEL 8.6 MG/DL (8.8-10.2); CREATININE FOR GFR 1.4 MG/DL (0.55-1.30); GLOMERULAR FILTRATION RATE 38.9 (>39); POTASSIUM SERUM 4.4 MEQ/L (3.5-5.1)
[2021-11-25] MEDS: INSULIN LISPRO (NovoLOG) PER UNIT SC SCH ×4 (07:22→21:00)
[2021-11-25] MEDS: PREGABALIN 100 MG CAP (LYRICA) PO SCH ×2 (07:53→21:28)
[2021-11-25] MEDS: allopurinoL 300 MG TAB PO SCH (07:53)
[2021-11-25] MEDS: PANTOPRAZOLE 40MG TAB (PROTONIX) PO SCH (07:53)
[2021-11-25] MEDS: ACETAMINOPHEN 500 MG TAB PO SCH ×3 (07:53→21:29)
[2021-11-25] MEDS: guaiFENesin SYRUP 200MG 10ML UDC PO SCH ×3 (07:53→21:26)
[2021-11-25] MEDS: DULoxetine 30MG CAPSULE (CYMBALTA) PO SCH ×2 (07:53→21:29)
[2021-11-25] MEDS: CARVedilol 3.125 MG TAB PO SCH ×2 (07:53→21:28)
[2021-11-25] MEDS: HEPARIN SOD (PORCINE) 5000UNITS/ML 1ML VIAL/SYRINGE SC SCH ×2 (07:54→21:28)
[2021-11-25] MEDS: LACTOBACILLUS ACIDOPHILUS CAP (BACID) PO SCH ×4 (07:54→21:28)
[2021-11-25] MEDS: NYSTATIN 100,000 UNITS/GM TOPICAL PWD 15 GM TOP SCH ×2 (07:54→21:32)
[2021-11-25] MEDS: MAGNESIUM OXIDE 400MG TAB (MAG-OX) PO SCH ×2 (07:54→21:28)
[2021-11-25] MEDS: LEVEMIR (INSULIN DETEMIR) 1 UNITS/0.01ML SC SCH ×2 (07:54→21:27)
[2021-11-25] MEDS: REMEDY PHYTOPLEX Z-GUARD PASTE 113GM TUBE (FROM STOREROOM PRODUCT) TOP SCH ×3 (07:55→21:32)
[2021-11-25] MEDS: COMBIVENT RESPIMAT 100-20MCG INHALER 4GM INH SCH ×4 (08:01→19:50)
[2021-11-25 14:00] VITALS: BP 133/73
[2021-11-25 20:00] VITALS: BP 110/59
[2021-11-25] MEDS: FAMOTIDINE 20 MG TAB PO SCH (21:28)
[2021-11-25] MEDS: ROSUVASTATIN 10 MG TAB (CRESTOR) PO SCH (21:28)
[2021-11-25] MEDS: ASPIRIN 81MG ENTERIC TABLET PO SCH (21:29)
[2021-11-25] MEDS: rOPINIRole 0.25 MG TAB(REQUIP) PO SCH (21:31)
[2021-11-26 05:24] VITALS: BP 132/73
[2021-11-26] MEDS: PANTOPRAZOLE 40MG TAB (PROTONIX) PO SCH (07:45)
[2021-11-26] MEDS: HEPARIN SOD (PORCINE) 5000UNITS/ML 1ML VIAL/SYRINGE SC SCH ×2 (07:45→20:42)
[2021-11-26] MEDS: guaiFENesin SYRUP 200MG 10ML UDC PO SCH ×3 (07:45→20:41)
[2021-11-26] MEDS: allopurinoL 300 MG TAB PO SCH (07:45)
[2021-11-26] MEDS: INSULIN LISPRO (NovoLOG) PER UNIT SC SCH ×4 (07:45→20:41)
[2021-11-26] MEDS: LACTOBACILLUS ACIDOPHILUS CAP (BACID) PO SCH ×4 (07:46→20:42)
[2021-11-26] MEDS: MAGNESIUM OXIDE 400MG TAB (MAG-OX) PO SCH ×2 (07:46→20:44)
[2021-11-26] MEDS: DULoxetine 30MG CAPSULE (CYMBALTA) PO SCH ×2 (07:46→20:43)
[2021-11-26] MEDS: ACETAMINOPHEN 500 MG TAB PO SCH ×3 (07:46→20:43)
[2021-11-26] MEDS: CARVedilol 3.125 MG TAB PO SCH ×2 (07:46→20:43)
[2021-11-26] MEDS: LEVEMIR (INSULIN DETEMIR) 1 UNITS/0.01ML SC SCH ×2 (07:46→20:41)
[2021-11-26] MEDS: PREGABALIN 100 MG CAP (LYRICA) PO SCH ×2 (07:46→20:43)
[2021-11-26] MEDS: NYSTATIN 100,000 UNITS/GM TOPICAL PWD 15 GM TOP SCH ×2 (07:47→20:44)
[2021-11-26] MEDS: REMEDY PHYTOPLEX Z-GUARD PASTE 113GM TUBE (FROM STOREROOM PRODUCT) TOP SCH ×3 (07:47→20:44)
[2021-11-26] MEDS: COMBIVENT RESPIMAT 100-20MCG INHALER 4GM INH SCH ×4 (08:00→20:28)
[2021-11-26] MEDS ORDERED: INCR1INH INH (10:25)
[2021-11-26] MEDS ORDERED: PREG100CA PO (10:25)
[2021-11-26] MEDS ORDERED: NEXI40CA PO (10:25)
[2021-11-26] MEDS ORDERED: CRES20TA2 PO (10:25)
[2021-11-26] MEDS ORDERED: ALLO300T2 PO (10:25)
[2021-11-26] MEDS ORDERED: NITR4TASL SL (10:25)
[2021-11-26] MEDS ORDERED: INSUHUMDS SC (10:25)
[2021-11-26] MEDS ORDERED: HUMU1INJ2 SC (10:25)
[2021-11-26] MEDS ORDERED: ROPI0.253 PO (10:25)
[2021-11-26] MEDS ORDERED: MAGN400T2 PO (10:25)
[2021-11-26] MEDS ORDERED: DULO1CAP6 PO (10:25)
[2021-11-26] MEDS ORDERED: ASPI81TA26 PO (10:25)
[2021-11-26] MEDS ORDERED: VENTAER INH (10:25)
[2021-11-26] MEDS ORDERED: FAMO20TA PO (10:25)
[2021-11-26] MEDS ORDERED: cefTRIAXone SOD 1 GM in D5W MINI-BAG PLUS 50 ML IV SCH (10:35)
[2021-11-26 14:00] VITALS: BP 157/73
[2021-11-26 19:28] VITALS: BP 128/60
[2021-11-26] MEDS: ROSUVASTATIN 10 MG TAB (CRESTOR) PO SCH (20:42)
[2021-11-26] MEDS: rOPINIRole 0.25 MG TAB(REQUIP) PO SCH (20:42)
[2021-11-26] MEDS: ASPIRIN 81MG ENTERIC TABLET PO SCH (20:42)
[2021-11-26] MEDS: FAMOTIDINE 20 MG TAB PO SCH (20:43)
[2021-11-27 05:41] VITALS: BP 140/71
[2021-11-27] MEDS: INSULIN LISPRO (NovoLOG) PER UNIT SC SCH (07:28)
[2021-11-27] MEDS: LEVEMIR (INSULIN DETEMIR) 1 UNITS/0.01ML SC SCH (07:28)
[2021-11-27] MEDS: COMBIVENT RESPIMAT 100-20MCG INHALER 4GM INH SCH (07:32)
[2021-11-27] MEDS: PREGABALIN 100 MG CAP (LYRICA) PO SCH (08:08)
[2021-11-27] MEDS: HEPARIN SOD (PORCINE) 5000UNITS/ML 1ML VIAL/SYRINGE SC SCH (08:08)
[2021-11-27] MEDS: LACTOBACILLUS ACIDOPHILUS CAP (BACID) PO SCH (08:08)
[2021-11-27] MEDS: allopurinoL 300 MG TAB PO SCH (08:08)
[2021-11-27] MEDS: DULoxetine 30MG CAPSULE (CYMBALTA) PO SCH (08:09)
[2021-11-27] MEDS: ACETAMINOPHEN 500 MG TAB PO SCH (08:09)
[2021-11-27 08:10] VITALS: BP 140/71
[2021-11-27] MEDS: PANTOPRAZOLE 40MG TAB (PROTONIX) PO SCH (08:10)
[2021-11-27] MEDS: MAGNESIUM OXIDE 400MG TAB (MAG-OX) PO SCH (08:10)
[2021-11-27] MEDS: CARVedilol 3.125 MG TAB PO SCH (08:10)
[2021-11-27] MEDS: guaiFENesin SYRUP 200MG 10ML UDC PO SCH (08:10)
[2021-11-27] MEDS: REMEDY PHYTOPLEX Z-GUARD PASTE 113GM TUBE (FROM STOREROOM PRODUCT) TOP SCH (08:13)
[2021-11-27] MEDS: NYSTATIN 100,000 UNITS/GM TOPICAL PWD 15 GM TOP SCH (08:13)
== END 2021-11-27 12:00 | disposition home health service (06) | DRG 74 ==
LOC: M PM&R 15:06
PROVIDERS: ADMIT Physical Medicine & Rehabilitation; ATTEND Physical Medicine & Rehabilitation
DX: G62.0 Drug-induced polyneuropathy (principal); G72.0 Drug-induced myopathy; I13.0 Hypertensive heart and chronic kidney disease with heart failure and stage 1 through stage 4 chronic kidney disease, or unspecified chronic kidney disease; F11.20 Opioid dependence, uncomplicated; L03.116 Cellulitis of left lower limb; J96.11 Chronic respiratory failure with hypoxia; E87.2 Acidosis; J44.9 Chronic obstructive pulmonary disease, unspecified; F17.200 Nicotine dependence, unspecified, uncomplicated; I27.20 Pulmonary hypertension, unspecified; N18.30 Chronic kidney disease, stage 3 unspecified; E11.22 Type 2 diabetes mellitus with diabetic chronic kidney disease; E11.42 Type 2 diabetes mellitus with diabetic polyneuropathy; M54.50 Low back pain, unspecified; M62.81 Muscle weakness (generalized); Z74.09 Other reduced mobility; Z74.1 Need for assistance with personal care; I50.9 Heart failure, unspecified; Z99.81 Dependence on supplemental oxygen; G25.81 Restless legs syndrome; D72.829 Elevated white blood cell count, unspecified; G89.29 Other chronic pain; Z79.82 Long term (current) use of aspirin; Z79.4 Long term (current) use of insulin; Z79.899 Other long term (current) drug therapy; Z79.52 Long term (current) use of systemic steroids; Z91.048 Other nonmedicinal substance allergy status; J84.10 Pulmonary fibrosis, unspecified

== ENCOUNTER 2021-12-04 18:15 | Observation (INO) | payer MEDICAID, MEDICARE, OTHER ==
[~2021-12-04] VITALS: Ht 160 cm; Wt 66.4 kg
[~2021-12-04 18:15] MED LIST changes: -ESOM1CAP5 PO; -FAMO1TAB11 PO; -NYST1POW9 TOP; -ROSU20TA5 PO; -VITAE40CA PO
[2021-12-04] MEDS ORDERED: methylPREDNISolone 125MG 2ML VIAL IV ONE (18:35)
[2021-12-04] MEDS ORDERED: ALBUTEROL SULFATE 2.5 MG/0.5 ML INH NEB SOLN INH ONE (18:55)
[2021-12-04] MEDS ORDERED: IPRATROPIUM 0.5MG/ALBUTEROL 2.5MG INH SOL UD 3ML (DUONEB) NEB ONE (18:55)
[2021-12-04 19:35] LABS: BASO # 0.1 10^3/uL (0.0-0.2); BASO % 0.9 % (0.0-1.0); EOS # 0.3 10^3/uL (0.0-0.5); EOS % 2.2 % (0.0-3.0); HEMATOCRIT 31.2 % (36.0-47.0); HEMOGLOBIN 9.4 g/dl (12.0-15.5); LYMPH # 3.8 10^3/uL (1.5-5.0); LYMPH % 32.4 % (24.0-44.0); MEAN CORPUSCULAR HEMOGLOBIN 26.6 pg (27.0-33.0); MEAN CORPUSCULAR HGB CONC 30.1 g/dl (32.0-36.5); MEAN CORPUSCULAR VOLUME 88.1 fl (80.0-96.0); MONO % 13.6 % (2.0-8.0); NEUTROPHILS # 5.9 10^3/uL (1.5-8.5); NEUTROPHILS % 50.5 % (36.0-66.0); PLATELET COUNT, AUTOMATED 304 10^3/uL (150-450); RED BLOOD COUNT 3.54 10^6/uL (4.00-5.40); WHITE BLOOD COUNT 11.7 10^3/uL (4.0-10.0)
[2021-12-04 20:06] LABS: MONO # 1.6 10^3/uL (0.0-0.8)
[2021-12-04 20:09] LABS: CK-MB VALUE MASS 2.8 NG/ML (<3.6); MB/CK RELATIVE INDEX 7.78 (< OR =4)
[2021-12-04 20:19] LABS: ALBUMIN 2.1 GM/DL (3.2-5.2); ALT/SGPT 19 U/L (12-78); BILIRUBIN,DIRECT < 0.1 MG/DL (0.0-0.2); BILIRUBIN,TOTAL 0.2 MG/DL (0.2-1.0); BLOOD UREA NITROGEN 36 MG/DL (7-18); CALCIUM LEVEL 8.7 MG/DL (8.8-10.2); CARBON DIOXIDE LEVEL 25 MEQ/L (21-32); CHLORIDE LEVEL 108 MEQ/L (98-107); CREATININE FOR GFR 1.52 MG/DL (0.55-1.30); GLOMERULAR FILTRATION RATE 35.4 (>39); GLUCOSE, FASTING 85 MG/DL (70-100); NT-PRO BNP 18366 PG/ML (<450); POTASSIUM SERUM 5.9 MEQ/L (3.5-5.1); SODIUM LEVEL 138 MEQ/L (136-145); THYROXINE (T4) 6.9 UG/DL (4.5-12.0); TOTAL PROTEIN 6.5 GM/DL (6.4-8.2)
[2021-12-04 20:22] LABS: RSV AMPLIFICATION NEGATIVE (NEGATIVE)
[2021-12-04] MEDS ORDERED: PATIROMER SORBITEX CALCIUM 8.4 GM POWDER PACKET (VELTASSA) PO ONE (20:55)
[2021-12-04] MEDS ORDERED: FUROSEMIDE 100MG/10ML VIAL (J1940) IV ONE (20:55)
[2021-12-04] MEDS ORDERED: POLYOPD OU (21:50)
[2021-12-04] MEDS ORDERED: FAMO1TAB11 PO (21:50)
[2021-12-04] MEDS ORDERED: TORS20TA2 PO (21:50)
[2021-12-04] MEDS ORDERED: INCR1INH INH (21:50)
[2021-12-04] MEDS ORDERED: ROSU20TA5 PO (21:50)
[2021-12-04] MEDS ORDERED: ESOM1CAP5 PO (21:50)
[2021-12-04] MEDS ORDERED: VITAE40CA PO (21:50)
[2021-12-04] MEDS ORDERED: NYST1POW9 TOP (21:50)
[2021-12-04] MEDS ORDERED: ROPI0.253 PO (21:50)
[2021-12-04] MEDS ORDERED: HUMU1INJ2 SC (21:50)
[2021-12-04] MEDS ORDERED: PREG100CA PO (21:50)
[2021-12-04] MEDS ORDERED: NITR4TASL SL (21:50)
[2021-12-04] MEDS ORDERED: MAGN400T2 PO (21:50)
[2021-12-04] MEDS ORDERED: INSUHUMDS SC (21:50)
[2021-12-04] MEDS ORDERED: DULO1CAP6 PO (21:52)
[2021-12-04] MEDS ORDERED: ALLO300T2 PO (21:52)
[2021-12-04] MEDS ORDERED: CARV6.25 PO (21:52)
[2021-12-04] MEDS ORDERED: ASPI81TA26 PO (21:53)
[2021-12-04] MEDS ORDERED: VENTAER INH (21:53)
[2021-12-04] MEDS ORDERED: HYDR-4517 PO (21:54)
[2021-12-04] MEDS ORDERED: HOME MED LIST COMPLETE! XX SCH (21:55)
[2021-12-04 21:58] LABS: CK-MB VALUE MASS 2.4 NG/ML (<3.6); MB/CK RELATIVE INDEX 2.73 (< OR =4)
[2021-12-05 01:57] LABS: CALCIUM LEVEL 9.2 MG/DL (8.8-10.2); CREATININE FOR GFR 1.3 MG/DL (0.55-1.30); GLOMERULAR FILTRATION RATE 42.4 (>39); POTASSIUM SERUM 5.7 MEQ/L (3.5-5.1)
[2021-12-05] MEDS ORDERED: ALBUTEROL 90 MCG/ACT 8GM HFA INHALER INH PRN (02:30)
[2021-12-05] MEDS ORDERED: HYDROcodone/APAP LIQUID 7.5-325MG 15ML UDC (LORTAB ELIXIR) PO PRN (02:30)
[2021-12-05] MEDS ORDERED: GLUCAGON INJ 1MG VIAL SC PRN (02:45)
[2021-12-05] MEDS ORDERED: GLUCOSE 4GM CHEW TABLET PO PRN (02:45)
[2021-12-05] MEDS ORDERED: SOD POLYSTYRENE SULFONATE SUSP 15GM 60ML UD PO ONE (02:45)
[2021-12-05] MEDS ORDERED: DEXTROSE 50% 50 ML SYRINGE IV PRN (02:45)
[2021-12-05 03:34] VITALS: BP 172/84
[2021-12-05] MEDS ORDERED: HumuLIN N INSULIN (NovoLIN N) PER UNIT SC SCH (07:30)
[2021-12-05 08:01] VITALS: BP 136/63
[2021-12-05 08:28] LABS: CREATININE FOR GFR 1.37 MG/DL (0.55-1.30); GLOMERULAR FILTRATION RATE 39.9 (>39); POTASSIUM SERUM 5.3 MEQ/L (3.5-5.1)
[2021-12-05 08:40] VITALS: BP 136/63
[2021-12-05] MEDS: INSULIN LISPRO (NovoLOG) PER UNIT SC SCH ×2 (08:41→12:57)
[2021-12-05] MEDS ORDERED: VITAMIN D 1,000 INTERNATIONAL UNITS TABLET PO SCH (09:00)
[2021-12-05] MEDS ORDERED: allopurinoL 300 MG TAB PO SCH (09:00)
[2021-12-05] MEDS ORDERED: PREGABALIN 100 MG CAP (LYRICA) PO SCH (09:00)
[2021-12-05] MEDS ORDERED: TORSEMIDE 20 MG TAB PO SCH (09:00)
[2021-12-05] MEDS ORDERED: POLYVINYL ALCOHOL OPHTH SOLN 15 ML(LIQUITEARS) OU SCH (09:00)
[2021-12-05] MEDS ORDERED: HEPARIN SOD (PORCINE) 5000UNITS/ML 1ML VIAL/SYRINGE SC SCH (09:00)
[2021-12-05] MEDS ORDERED: DULoxetine 30MG CAPSULE (CYMBALTA) PO SCH (09:00)
[2021-12-05] MEDS ORDERED: PANTOPRAZOLE 40MG TAB (PROTONIX) PO SCH (09:00)
[2021-12-05] MEDS ORDERED: CARVedilol 3.125 MG TAB PO SCH (09:00)
[2021-12-05] MEDS ORDERED: NYSTATIN 100,000 UNITS/GM TOPICAL PWD 15 GM TOP PRN (09:45)
[2021-12-05] MEDS ORDERED: ALBUTEROL SULFATE 2.5 MG/0.5 ML INH NEB SOLN INH PRN (09:45)
[2021-12-05] MEDS ORDERED: NITROGLYCERIN 0.4 MG SUBL TABLET SL PRN (09:45)
[2021-12-05] MEDS ORDERED: PRED10TA2 PO (13:03)
[2021-12-05] MEDS ORDERED: TORS20TA2 PO (13:03)
[2021-12-05] MEDS ORDERED: FAMOTIDINE 20 MG TAB PO SCH (21:00)
[2021-12-05] MEDS ORDERED: ROSUVASTATIN 10 MG TAB (CRESTOR) PO SCH (21:00)
[2021-12-05] MEDS ORDERED: INSULIN LISPRO (NovoLOG) PER UNIT SC SCH (21:00)
[2021-12-05] MEDS ORDERED: rOPINIRole 0.25 MG TAB(REQUIP) PO SCH (21:00)
[2021-12-05] MEDS ORDERED: MAGNESIUM OXIDE 400MG TAB (MAG-OX) PO SCH (21:00)
[2021-12-05] MEDS ORDERED: ASPIRIN 81MG ENTERIC TABLET PO SCH (21:00)
[2021-12-06] MEDS ORDERED: VITAMIN E 400 INTERNATIONAL UNITS CAP PO SCH (09:00)
== END 2021-12-05 14:21 | disposition home or self-care (01) ==
LOC: EDBD 18:15 → M ED 18:15 → M ED INP 18:16 → ENRESERV 12-05 02:08 → M PCU 12-05 03:20
PROVIDERS: ADMIT Internal Medicine; ATTEND Internal Medicine
DX: E87.5 Hyperkalemia (principal); E11.40 Type 2 diabetes mellitus with diabetic neuropathy, unspecified; M51.36 Other intervertebral disc degeneration, lumbar region; M10.9 Gout, unspecified; F11.20 Opioid dependence, uncomplicated; F17.210 Nicotine dependence, cigarettes, uncomplicated; J96.11 Chronic respiratory failure with hypoxia; K21.9 Gastro-esophageal reflux disease without esophagitis; B37.9 Candidiasis, unspecified; G25.81 Restless legs syndrome; Z79.82 Long term (current) use of aspirin; Z79.4 Long term (current) use of insulin; Z79.899 Other long term (current) drug therapy; I27.0 Primary pulmonary hypertension; N18.30 Chronic kidney disease, stage 3 unspecified; I50.32 Chronic diastolic (congestive) heart failure; D50.9 Iron deficiency anemia, unspecified
CPT/HCPCS: 36415; 71045; 80048; 80076; 82550; 82553; 83550; 83605; 83880; 84436; 84443; 84484; 85025; 87040; 87486; 87581; 87631; 87633; 87798; 93005; 93041; 93971; 94760; 96372; 96374; 96375; 97161; 99285; G0378; J1644; J1815; J1940; J2930

== ENCOUNTER → 2021-12-04 | Outpatient (REF) | payer MEDICARE, MEDICAID ==
[~2021-12-04] MED LIST changes: +ESOM1CAP5 PO; +FAMO1TAB11 PO; +INSUHUMDS SC; +NYST1POW9 TOP; +PREG100CA PO; +ROSU20TA5 PO; +VITAE40CA PO
[2021-12-04 17:45] LABS: PERCENT SATURATION 13.3 % (13.2-45.0)
== END ==
LOC: M LAB REF 16:43
PROVIDERS: ATTEND Nurse Practitioner Family
DX: D50.9 Iron deficiency anemia, unspecified (principal)

== ENCOUNTER 2022-01-26 16:20 | Inpatient (IN) | payer MEDICARE ==
[~2022-01-26] VITALS: Ht 160 cm; Wt 66.0 kg
[~2022-01-26 16:20] MED LIST changes: +ESOM1CAP5 PO; +FAMO1TAB11 PO; +LEVO1TAB39 PO; +LEVO1TAB40 PO; -LEVO500T4 PO; -LEVO750T13 PO; +NYST1POW9 TOP; +POTA-150 PO; -POTA10TA17 PO; +ROSU20TA5 PO; +VITAE40CA PO
[2022-01-26 17:29] LABS: BASO % 0.2 % (0.0-1.0); EOS # 0.1 10^3/uL (0.0-0.5); EOS % 0.3 % (0.0-3.0); HEMOGLOBIN 10.5 g/dl (12.0-15.5); LYMPH # 1.6 10^3/uL (1.5-5.0); LYMPH % 8.1 % (24.0-44.0); MEAN CORPUSCULAR HEMOGLOBIN 24.4 pg (27.0-33.0); MEAN CORPUSCULAR HGB CONC 29.2 g/dl (32.0-36.5); MEAN CORPUSCULAR VOLUME 83.5 fl (80.0-96.0); MONO # 0.7 10^3/uL (0.0-0.8); MONO % 3.5 % (2.0-8.0); NEUTROPHILS # 16.7 10^3/uL (1.5-8.5); NEUTROPHILS % 87.5 % (36.0-66.0); PLATELET COUNT, AUTOMATED 159 10^3/uL (150-450); RED BLOOD COUNT 4.31 10^6/uL (4.00-5.40); WHITE BLOOD COUNT 19.1 10^3/uL (4.0-10.0)
[2022-01-26] MEDS ORDERED: FUROSEMIDE 40MG/4ML VIAL (J1940) IV ONE (17:35)
[2022-01-26 18:08] LABS: CK-MB VALUE MASS 2.5 NG/ML (<3.6); MB/CK RELATIVE INDEX 6.94 (< OR =4)
[2022-01-26 18:15] LABS: ALBUMIN 2.7 GM/DL (3.2-5.2); BILIRUBIN,DIRECT 0.2 MG/DL (0.0-0.2); BILIRUBIN,TOTAL 0.6 MG/DL (0.2-1.0); CALCIUM LEVEL 8.4 MG/DL (8.8-10.2); CREATININE FOR GFR 1.57 MG/DL (0.55-1.30); GLOMERULAR FILTRATION RATE 34.1 (>39); POTASSIUM SERUM 4.3 MEQ/L (3.5-5.1); TOTAL PROTEIN 6.1 GM/DL (6.4-8.2)
[2022-01-26] MEDS ORDERED: GLUCAGON INJ 1MG VIAL SC PRN (18:45)
[2022-01-26] MEDS ORDERED: GLUCOSE 4GM CHEW TABLET PO PRN (18:45)
[2022-01-26] MEDS ORDERED: LEVALBUTEROL 1.25 MG/0.5 ML CONCENTRATE NEB INH PRN (19:20)
[2022-01-26] MEDS ORDERED: POTA1TAB23 PO (19:22)
[2022-01-26] MEDS ORDERED: SILV50CR TOP (19:22)
[2022-01-26] MEDS ORDERED: AMLO1TAB25 PO (19:22)
[2022-01-26] MEDS ORDERED: TORS20TA2 PO (19:22)
[2022-01-26] MEDS ORDERED: INSURSD SC (19:33)
[2022-01-26] MEDS ORDERED: PT COMMENT (19:34)
[2022-01-26] MEDS ORDERED: LYRI200C PO (19:37)
[2022-01-26] MEDS ORDERED: DOCU100C16 PO (19:39)
[2022-01-26] MEDS ORDERED: HOME MED LIST COMPLETE! XX SCH (19:45)
[2022-01-26] MEDS ORDERED: NYSTATIN 100,000 UNITS/GM TOPICAL PWD 15 GM TOP PRN (19:55)
[2022-01-26] MEDS ORDERED: NITROGLYCERIN 0.4 MG SUBL TABLET SL PRN (19:55)
[2022-01-26] MEDS: IPRATROPIUM 0.5MG/ALBUTEROL 2.5MG INH SOL UD 3ML (DUONEB) NEB SCH (20:37)
[2022-01-26] MEDS: INSULIN LISPRO (NovoLOG) PER UNIT SC SCH (21:00)
[2022-01-26] MEDS ORDERED: FUROSEMIDE 40MG/4ML VIAL (J1940) IV SCH (21:00)
[2022-01-26] MEDS: rOPINIRole 0.25 MG TAB(REQUIP) PO SCH (21:00)
[2022-01-26] MEDS: POLYVINYL ALCOHOL OPHTH SOLN 15 ML(LIQUITEARS) OU SCH (21:00)
[2022-01-26 21:42] VITALS: BP 188/88
[2022-01-26] MEDS: DULoxetine 30MG CAPSULE (CYMBALTA) PO SCH (22:24)
[2022-01-26] MEDS: CARVedilol 6.25 MG TAB PO SCH (22:24)
[2022-01-26] MEDS: DOCUSATE SODIUM 100MG CAPSULE PO SCH (22:24)
[2022-01-26] MEDS: MAGNESIUM OXIDE 400MG TAB (MAG-OX) PO SCH (22:24)
[2022-01-26] MEDS: POTASSIUM CHLORIDE 10MEQ SR TABLET PO SCH (22:25)
[2022-01-26] MEDS: PREGABALIN 100 MG CAP (LYRICA) PO SCH (22:25)
[2022-01-26] MEDS: NORCO, ANEXSIA 5/325MG TABLET (HYDROcodone/ACETAMINOPHEN) PO PRN (22:34)
[2022-01-27] VITALS (7 sets, daily range): BP systolic 113–164; BP diastolic 61–81; O2SAT 88
[2022-01-27] MEDS: IPRATROPIUM 0.5MG/ALBUTEROL 2.5MG INH SOL UD 3ML (DUONEB) NEB SCH ×4 (02:00→19:23)
[2022-01-27] MEDS: HEPARIN SOD (PORCINE) 5000UNITS/ML 1ML VIAL/SYRINGE SQ SCH ×3 (05:33→22:28)
[2022-01-27 06:35] LABS: BASO % 0.2 % (0.0-1.0); EOS # 0.1 10^3/uL (0.0-0.5); EOS % 0.4 % (0.0-3.0); HEMATOCRIT 34.7 % (36.0-47.0); HEMOGLOBIN 10.6 g/dl (12.0-15.5); LYMPH # 3.3 10^3/uL (1.5-5.0); LYMPH % 20.1 % (24.0-44.0); MEAN CORPUSCULAR HEMOGLOBIN 24.9 pg (27.0-33.0); MEAN CORPUSCULAR HGB CONC 30.5 g/dl (32.0-36.5); MEAN CORPUSCULAR VOLUME 81.6 fl (80.0-96.0); MONO # 1.2 10^3/uL (0.0-0.8); MONO % 7.6 % (2.0-8.0); NEUTROPHILS # 11.6 10^3/uL (1.5-8.5); NEUTROPHILS % 71.3 % (36.0-66.0); PLATELET COUNT, AUTOMATED 154 10^3/uL (150-450); RED BLOOD COUNT 4.25 10^6/uL (4.00-5.40); WHITE BLOOD COUNT 16.2 10^3/uL (4.0-10.0)
[2022-01-27 07:05] LABS: CALCIUM LEVEL 8.6 MG/DL (8.8-10.2); CREATININE FOR GFR 1.43 MG/DL (0.55-1.30); MAGNESIUM LEVEL 2.2 MG/DL (1.8-2.4); POTASSIUM SERUM 4.4 MEQ/L (3.5-5.1)
[2022-01-27 07:08] LABS: CK-MB VALUE MASS 1.6 NG/ML (<3.6); MB/CK RELATIVE INDEX 6.15 (< OR =4)
[2022-01-27] MEDS: POLYVINYL ALCOHOL OPHTH SOLN 15 ML(LIQUITEARS) OU SCH ×2 (08:47→22:28)
[2022-01-27] MEDS: CARVedilol 6.25 MG TAB PO SCH ×2 (08:48→22:30)
[2022-01-27] MEDS: MAGNESIUM OXIDE 400MG TAB (MAG-OX) PO SCH ×2 (08:48→22:29)
[2022-01-27] MEDS: FAMOTIDINE 20 MG TAB PO SCH (08:48)
[2022-01-27] MEDS: DULoxetine 30MG CAPSULE (CYMBALTA) PO SCH ×2 (08:48→22:29)
[2022-01-27] MEDS: ROSUVASTATIN 10 MG TAB (CRESTOR) PO SCH (08:48)
[2022-01-27] MEDS: DOCUSATE SODIUM 100MG CAPSULE PO SCH ×2 (08:49→22:25)
[2022-01-27] MEDS: PREGABALIN 100 MG CAP (LYRICA) PO SCH ×2 (08:49→22:29)
[2022-01-27] MEDS: ASPIRIN 81MG ENTERIC TABLET PO SCH (08:49)
[2022-01-27] MEDS: POTASSIUM CHLORIDE 10MEQ SR TABLET PO SCH ×2 (08:49→22:33)
[2022-01-27] MEDS: allopurinoL 300 MG TAB PO SCH (08:49)
[2022-01-27] MEDS: INSULIN LISPRO (NovoLOG) PER UNIT SC SCH ×4 (08:57→22:25)
[2022-01-27] MEDS ORDERED: FUROSEMIDE 40MG/4ML VIAL (J1940) IV SCH (09:00)
[2022-01-27] MEDS ORDERED: HumuLIN N INSULIN (NovoLIN N) PER UNIT SC SCH (09:00)
[2022-01-27] MEDS: SILVER SULFADIAZINE 1% CR 50 GM JAR TOP SCH (10:06)
[2022-01-27] MEDS: HumuLIN N INSULIN (NovoLIN N) PER UNIT SC SCH (10:07)
[2022-01-27] MEDS: TIOTROPIUM INHALER/CAPSULE (SPIRIVA) INH SCH (11:27)
[2022-01-27] MEDS: FUROSEMIDE 40MG/4ML VIAL (J1940) IV SCH (17:13)
[2022-01-27 19:16] LABS: APPEARANCE, URINE MANUAL CLOUDY (CLEAR); COLOR, URINE MANUAL YELLOW (YELLOW)
[2022-01-27 19:19] LABS: BILIRUBIN, URINE MANUAL NEGATIVE (NEGATIVE); BLOOD URINE MANUAL POSITIVE (NEGATIVE); GLUCOSE, URINE (UA) MANUAL NEGATIVE (NEGATIVE); KETONE, URINE MANUAL NEGATIVE (NEGATIVE); LEUKOCYTE ESTERASE, URINE MAN POSITIVE (NEGATIVE); NITRITE, URINE MANUAL POSITIVE (NEGATIVE); PROTEIN, URINE MANUAL 3+ mg/dL (NEGATIVE); SPECIFIC GRAVITY,URINE MANUAL 1.015 (1.002-1.035); UROBILINOGEN, URINE MANUAL NORMAL (NORMAL)
[2022-01-27 20:24] LABS: WBC, URINE TNTC /hpf (0-3)
[2022-01-27 20:25] LABS: BACTERIA, URINE LARGE AMOUNT; MUCUS, URINE SMALL AMOUNT (NEGATIVE); SQUAMOUS EPITHELIAL CELL URINE NONE SEEN /hpf (SMALL AMT); TRANSITIONAL EPI CELLS, URINE SMALL AMOUNT /hpf
[2022-01-27 20:26] LABS: HYALINE CAST, URINE NONE SEEN /lpf (0-1)
[2022-01-27] MEDS: rOPINIRole 0.25 MG TAB(REQUIP) PO SCH (22:29)
[2022-01-28] MEDS: IPRATROPIUM 0.5MG/ALBUTEROL 2.5MG INH SOL UD 3ML (DUONEB) NEB SCH ×4 (01:04→19:17)
[2022-01-28] MEDS: NORCO, ANEXSIA 5/325MG TABLET (HYDROcodone/ACETAMINOPHEN) PO PRN (02:27)
[2022-01-28 05:34] VITALS: BP 114/65
[2022-01-28] MEDS: HEPARIN SOD (PORCINE) 5000UNITS/ML 1ML VIAL/SYRINGE SQ SCH ×3 (05:38→21:55)
[2022-01-28 06:29] LABS: HEMOGLOBIN 10.5 g/dl (12.0-15.5); MEAN CORPUSCULAR HEMOGLOBIN 24.4 pg (27.0-33.0); MEAN CORPUSCULAR VOLUME 81.4 fl (80.0-96.0); PLATELET COUNT, AUTOMATED 157 10^3/uL (150-450); WHITE BLOOD COUNT 13.5 10^3/uL (4.0-10.0)
[2022-01-28 07:20] LABS: CALCIUM LEVEL 8.5 MG/DL (8.8-10.2); CREATININE FOR GFR 1.58 MG/DL (0.55-1.30); GLOMERULAR FILTRATION RATE 33.9 (>39); POTASSIUM SERUM 3.9 MEQ/L (3.5-5.1)
[2022-01-28] MEDS: TIOTROPIUM INHALER/CAPSULE (SPIRIVA) INH SCH (07:24)
[2022-01-28] MEDS: INSULIN LISPRO (NovoLOG) PER UNIT SC SCH ×2 (07:30→13:44)
[2022-01-28] MEDS: HumuLIN N INSULIN (NovoLIN N) PER UNIT SC SCH (09:17)
[2022-01-28] MEDS: PREGABALIN 100 MG CAP (LYRICA) PO SCH ×2 (09:18→21:52)
[2022-01-28] MEDS: DOCUSATE SODIUM 100MG CAPSULE PO SCH ×2 (09:18→22:00)
[2022-01-28] MEDS: ASPIRIN 81MG ENTERIC TABLET PO SCH (09:18)
[2022-01-28] MEDS: POTASSIUM CHLORIDE 10MEQ SR TABLET PO SCH ×2 (09:19→21:53)
[2022-01-28] MEDS: ROSUVASTATIN 10 MG TAB (CRESTOR) PO SCH (09:19)
[2022-01-28] MEDS: DULoxetine 30MG CAPSULE (CYMBALTA) PO SCH ×2 (09:19→21:54)
[2022-01-28] MEDS: FAMOTIDINE 20 MG TAB PO SCH (09:19)
[2022-01-28] MEDS: MAGNESIUM OXIDE 400MG TAB (MAG-OX) PO SCH ×2 (09:19→21:54)
[2022-01-28] MEDS: allopurinoL 300 MG TAB PO SCH (09:21)
[2022-01-28] MEDS: CARVedilol 6.25 MG TAB PO SCH ×2 (09:23→21:49)
[2022-01-28] MEDS: POLYVINYL ALCOHOL OPHTH SOLN 15 ML(LIQUITEARS) OU SCH ×2 (09:23→21:55)
[2022-01-28] MEDS: FUROSEMIDE 40MG/4ML VIAL (J1940) IV SCH ×2 (09:23→18:08)
[2022-01-28] MEDS: SILVER SULFADIAZINE 1% CR 50 GM JAR TOP SCH (09:24)
[2022-01-28] MEDS ORDERED: CEPHALEXIN 250MG CAPSULE PO SCH (13:00)
[2022-01-28 14:02] VITALS: BP 116/57
[2022-01-28] MEDS: CEPHALEXIN 250MG CAPSULE PO SCH ×2 (15:16→21:52)
[2022-01-28] MEDS: DEXTROSE 50% 50 ML SYRINGE IV PRN ×2 (16:31→16:41)
[2022-01-28] MEDS ORDERED: DEXTROSE 50% 50 ML SYRINGE IV STA (16:42)
[2022-01-28] MEDS: D5W 1,000 ML IV SCH (18:07)
[2022-01-28 18:10] VITALS: BP 123/60
[2022-01-28] MEDS ORDERED: NITROFURANTOIN (MACROBID) 100 MG CAP PO SCH (21:00)
[2022-01-28] MEDS: rOPINIRole 0.25 MG TAB(REQUIP) PO SCH (21:49)
[2022-01-28 21:50] VITALS: BP 137/69
[2022-01-29] MEDS: IPRATROPIUM 0.5MG/ALBUTEROL 2.5MG INH SOL UD 3ML (DUONEB) NEB SCH ×3 (02:00→14:12)
[2022-01-29 06:00] VITALS: BP 126/61
[2022-01-29 06:18] LABS: HEMOGLOBIN 10.4 g/dl (12.0-15.5); MEAN CORPUSCULAR HEMOGLOBIN 24.3 pg (27.0-33.0); MEAN CORPUSCULAR HGB CONC 29.7 g/dl (32.0-36.5); MEAN CORPUSCULAR VOLUME 81.8 fl (80.0-96.0); PLATELET COUNT, AUTOMATED 167 10^3/uL (150-450); RED BLOOD COUNT 4.28 10^6/uL (4.00-5.40)
[2022-01-29] MEDS: CEPHALEXIN 250MG CAPSULE PO SCH ×2 (06:42→14:47)
[2022-01-29] MEDS: D5W 1,000 ML IV SCH (06:42)
[2022-01-29] MEDS: HEPARIN SOD (PORCINE) 5000UNITS/ML 1ML VIAL/SYRINGE SQ SCH ×2 (06:42→14:48)
[2022-01-29 06:52] LABS: CALCIUM LEVEL 8.6 MG/DL (8.8-10.2); CREATININE FOR GFR 1.4 MG/DL (0.55-1.30); GLOMERULAR FILTRATION RATE 38.9 (>39); MAGNESIUM LEVEL 1.9 MG/DL (1.8-2.4); POTASSIUM SERUM 4.1 MEQ/L (3.5-5.1)
[2022-01-29] MEDS: TIOTROPIUM INHALER/CAPSULE (SPIRIVA) INH SCH (07:27)
[2022-01-29] MEDS ORDERED: HumuLIN N INSULIN (NovoLIN N) PER UNIT SC SCH (07:30)
[2022-01-29] MEDS: PREGABALIN 100 MG CAP (LYRICA) PO SCH (08:36)
[2022-01-29] MEDS: FUROSEMIDE 40MG/4ML VIAL (J1940) IV SCH (08:36)
[2022-01-29] MEDS: DULoxetine 30MG CAPSULE (CYMBALTA) PO SCH (08:36)
[2022-01-29 08:37] VITALS: BP 119/60
[2022-01-29] MEDS: POTASSIUM CHLORIDE 10MEQ SR TABLET PO SCH (08:37)
[2022-01-29] MEDS: DOCUSATE SODIUM 100MG CAPSULE PO SCH (08:37)
[2022-01-29] MEDS: FAMOTIDINE 20 MG TAB PO SCH (08:37)
[2022-01-29] MEDS: MAGNESIUM OXIDE 400MG TAB (MAG-OX) PO SCH (08:37)
[2022-01-29] MEDS: ROSUVASTATIN 10 MG TAB (CRESTOR) PO SCH (08:37)
[2022-01-29] MEDS: ASPIRIN 81MG ENTERIC TABLET PO SCH (08:37)
[2022-01-29] MEDS: allopurinoL 300 MG TAB PO SCH (08:37)
[2022-01-29] MEDS: CARVedilol 6.25 MG TAB PO SCH (08:38)
[2022-01-29] MEDS: POLYVINYL ALCOHOL OPHTH SOLN 15 ML(LIQUITEARS) OU SCH (08:38)
[2022-01-29] MEDS: SILVER SULFADIAZINE 1% CR 50 GM JAR TOP SCH (08:39)
[2022-01-29] MEDS ORDERED: TORSEMIDE 20 MG TAB PO SCH (12:00)
[2022-01-29] MEDS ORDERED: INSULIN LISPRO (NovoLOG) PER UNIT SC SCH (13:00)
[2022-01-29 14:00] VITALS: BP 130/60
[2022-01-29 17:47] LABS: HEMOGLOBIN A1c 7.8 %
[2022-01-29] MEDS ORDERED: INSUNSD SC (18:20)
[2022-01-29] MEDS ORDERED: TORS20TA2 PO ×2 (18:20→18:48)
[2022-01-29] MEDS ORDERED: Cephalexin Monohydrate PO (18:21)
[2022-01-29] MEDS ORDERED: CEPH250T PO (18:24)
[2022-01-29] MEDS ORDERED: CEPH500C PO (18:48)
[2022-01-29] MEDS ORDERED: LEVEMIR (INSULIN DETEMIR) 1 UNITS/0.01ML SC SCH (21:00)
[2022-02-03] MEDS ORDERED: HYDR-4517 PO (17:37)
[2022-02-03] MEDS ORDERED: LYRI200C PO (17:37)
== END 2022-01-29 19:21 | disposition home or self-care (01) | DRG 291 ==
LOC: M ED 16:20 → EDBD 16:20 → EEVIPCON 18:21 → M ED INP 18:21 → M PCU 21:39 → M MSPAV 01-27 15:18
PROVIDERS: ADMIT Family Medicine; ATTEND Student in an Organized Health Care Education/Training Program
DX: I13.0 Hypertensive heart and chronic kidney disease with heart failure and stage 1 through stage 4 chronic kidney disease, or unspecified chronic kidney disease (principal); I50.33 Acute on chronic diastolic (congestive) heart failure; E87.2 Acidosis; N39.0 Urinary tract infection, site not specified; I27.81 Cor pulmonale (chronic); J44.9 Chronic obstructive pulmonary disease, unspecified; K21.9 Gastro-esophageal reflux disease without esophagitis; M10.9 Gout, unspecified; N18.30 Chronic kidney disease, stage 3 unspecified; E78.5 Hyperlipidemia, unspecified; Z66 Do not resuscitate; Z99.81 Dependence on supplemental oxygen; I25.10 Atherosclerotic heart disease of native coronary artery without angina pectoris; E11.22 Type 2 diabetes mellitus with diabetic chronic kidney disease; I27.20 Pulmonary hypertension, unspecified; E66.01 Morbid (severe) obesity due to excess calories; E11.621 Type 2 diabetes mellitus with foot ulcer; E11.649 Type 2 diabetes mellitus with hypoglycemia without coma; E11.65 Type 2 diabetes mellitus with hyperglycemia; L97.529 Non-pressure chronic ulcer of other part of left foot with unspecified severity; L89.151 Pressure ulcer of sacral region, stage 1; G25.81 Restless legs syndrome; G89.29 Other chronic pain; Z79.899 Other long term (current) drug therapy; Z79.82 Long term (current) use of aspirin; Z79.4 Long term (current) use of insulin

== ENCOUNTER → 2022-02-09 | Outpatient (CLI) | payer MEDICARE ==
[~2022-02-09] MED LIST changes: +ATRO1OPD OS; +CEPH250T PO; +Cephalexin Monohydrate PO; +DOCU100C16 PO; +INSURSD SC; +POTA1TAB23 PO; +PRED1SUS2 OS; +PT COMMENT; +SILV50CR TOP
== END ==
LOC: M PAL 13:50
PROVIDERS: ATTEND Nurse Practitioner Adult Health
DX: I50.30 Unspecified diastolic (congestive) heart failure (principal); J44.9 Chronic obstructive pulmonary disease, unspecified; J84.10 Pulmonary fibrosis, unspecified; N18.30 Chronic kidney disease, stage 3 unspecified; R06.02 Shortness of breath; E10.622 Type 1 diabetes mellitus with other skin ulcer; G61.9 Inflammatory polyneuropathy, unspecified; E87.5 Hyperkalemia; L97.528 Non-pressure chronic ulcer of other part of left foot with other specified severity; I27.20 Pulmonary hypertension, unspecified; E10.40 Type 1 diabetes mellitus with diabetic neuropathy, unspecified; B37.2 Candidiasis of skin and nail; E78.5 Hyperlipidemia, unspecified; K21.9 Gastro-esophageal reflux disease without esophagitis; G25.81 Restless legs syndrome; M10.9 Gout, unspecified; M51.36 Other intervertebral disc degeneration, lumbar region; M65.332 Trigger finger, left middle finger; M65.342 Trigger finger, left ring finger; R29.6 Repeated falls; Z72.0 Tobacco use; Z66 Do not resuscitate; Z91.09 Other allergy status, other than to drugs and biological substances; Z79.891 Long term (current) use of opiate analgesic; Z79.4 Long term (current) use of insulin; Z79.51 Long term (current) use of inhaled steroids; Z79.899 Other long term (current) drug therapy; Z51.5 Encounter for palliative care

== ENCOUNTER → 2022-02-11 | Outpatient (REF) | payer MEDICARE, MEDICAID ==
[~2022-02-11] MED LIST changes: -ATRO1OPD OS; -PRED1SUS2 OS
[2022-02-11 18:13] LABS: PERCENT SATURATION 8.6 % (13.2-45.0)
== END ==
LOC: M LAB REF 16:47
PROVIDERS: ATTEND Nurse Practitioner Family
DX: D50.9 Iron deficiency anemia, unspecified (principal)

== ENCOUNTER 2022-02-19 10:02 | Emergency (ER) | payer MEDICARE, MEDICAID ==
[~2022-02-19] VITALS: Ht 160 cm; Wt 65.5 kg
[2022-02-19] MEDS ORDERED: PROPARACAINE 0.5% OPHTH SOL 15ML OS ONE (10:30)
[2022-02-19 11:43] LABS: BASO # 0.1 10^3/uL (0.0-0.2); BASO % 0.3 % (0.0-1.0); EOS # 0.2 10^3/uL (0.0-0.5); HEMATOCRIT 38.1 % (36.0-47.0); HEMOGLOBIN 10.9 g/dl (12.0-15.5); LYMPH # 2.9 10^3/uL (1.5-5.0); LYMPH % 18.4 % (24.0-44.0); MEAN CORPUSCULAR HEMOGLOBIN 23.5 pg (27.0-33.0); MEAN CORPUSCULAR HGB CONC 28.6 g/dl (32.0-36.5); MEAN CORPUSCULAR VOLUME 82.3 fl (80.0-96.0); MONO # 1.3 10^3/uL (0.0-0.8); MONO % 8.3 % (2.0-8.0); NEUTROPHILS # 11.1 10^3/uL (1.5-8.5); NEUTROPHILS % 71.6 % (36.0-66.0); PLATELET COUNT, AUTOMATED 166 10^3/uL (150-450); RED BLOOD COUNT 4.63 10^6/uL (4.00-5.40); WHITE BLOOD COUNT 15.5 10^3/uL (4.0-10.0)
[2022-02-19] MEDS ORDERED: traMADol 50 MG TAB PO ONE (11:50)
[2022-02-19 12:05] LABS: ERYTHROCYTE SEDIMENTATION RATE 15 mm/hr (0-30)
[2022-02-19] MEDS ORDERED: AMPICILLIN SOD/SULBACTAM SOD 3 GM in D5W MINI-BAG PLUS 100 ML IV ONE (12:10)
[2022-02-19] MEDS ORDERED: ATROPINE SULFATE 1% OP SOLN 2 ML BTL OS STA (12:10)
[2022-02-19] MEDS ORDERED: prednisoLONE ACET 1% OPHTH SUSP 5ML OS STA (12:10)
[2022-02-19 12:29] LABS: CALCIUM LEVEL 8.7 MG/DL (8.8-10.2); CREATININE FOR GFR 1.57 MG/DL (0.55-1.30); GLOMERULAR FILTRATION RATE 34.1 (>39); POTASSIUM SERUM 4.1 MEQ/L (3.5-5.1)
[2022-02-19] MEDS ORDERED: ISOVUE-370 76% 100ML VIAL As Ordered ONE (12:34)
[2022-02-19] MEDS ORDERED: PRED1SUS2 OS (13:55)
[2022-02-19] MEDS ORDERED: AMOX875T2 PO (13:55)
[2022-02-19] MEDS ORDERED: ATRO1OPD OS (13:55)
[2022-02-19 15:14] VITALS: BP 135/94
== END 2022-02-19 15:09 | disposition home or self-care (01) ==
LOC: M ED 10:02
DX: H05.012 Cellulitis of left orbit (principal); H40.2220 Chronic angle-closure glaucoma, left eye, stage unspecified; J44.9 Chronic obstructive pulmonary disease, unspecified; N18.30 Chronic kidney disease, stage 3 unspecified; F32.A Depression, unspecified; Z86.79 Personal history of other diseases of the circulatory system; Z91.048 Other nonmedicinal substance allergy status; Z79.51 Long term (current) use of inhaled steroids; Z79.82 Long term (current) use of aspirin; Z79.4 Long term (current) use of insulin; Z79.899 Other long term (current) drug therapy
CPT/HCPCS: 70481; 80048; 85025; 85652; 96365; 99284; J0295; Q9967

== ENCOUNTER → 2022-03-18 | Outpatient (REF) | payer MEDICARE, MEDICAID ==
[~2022-03-18] MED LIST changes: +ATRO1OPD OS; +PRED1SUS2 OS
[2022-03-19 19:14] LABS: PERCENT SATURATION 4.9 % (13.2-45.0)
== END ==
LOC: M LAB REF 16:59
PROVIDERS: ATTEND Nurse Practitioner Family
DX: D50.9 Iron deficiency anemia, unspecified (principal)

== ENCOUNTER 2022-03-31 10:04 | Emergency (ER) | payer MEDICAID, MEDICARE ==
[~2022-03-31] VITALS: Ht 160 cm; Wt 68.4 kg
[2022-03-31 11:18] LABS: BASO # 0.1 10^3/uL (0.0-0.2); BASO % 0.4 % (0.0-1.0); EOS # 0.2 10^3/uL (0.0-0.5); EOS % 1.4 % (0.0-3.0); HEMATOCRIT 33.5 % (36.0-47.0); HEMOGLOBIN 9.4 g/dl (12.0-15.5); LYMPH # 5.1 10^3/uL (1.5-5.0); LYMPH % 30.6 % (24.0-44.0); MEAN CORPUSCULAR HEMOGLOBIN 22.3 pg (27.0-33.0); MEAN CORPUSCULAR HGB CONC 28.1 g/dl (32.0-36.5); MEAN CORPUSCULAR VOLUME 79.6 fl (80.0-96.0); MONO % 6.2 % (2.0-8.0); NEUTROPHILS # 10.1 10^3/uL (1.5-8.5); PLATELET COUNT, AUTOMATED 144 10^3/uL (150-450); RED BLOOD COUNT 4.21 10^6/uL (4.00-5.40); WHITE BLOOD COUNT 16.5 10^3/uL (4.0-10.0)
[2022-03-31 11:33] LABS: ALBUMIN 2.9 GM/DL (3.2-5.2); BILIRUBIN,DIRECT 0.1 MG/DL (0.0-0.2); BILIRUBIN,TOTAL 0.3 MG/DL (0.2-1.0); CALCIUM LEVEL 8.4 MG/DL (8.8-10.2); CK-MB VALUE MASS 2.9 NG/ML (<3.6); CREATININE FOR GFR 1.56 MG/DL (0.55-1.30); GLOMERULAR FILTRATION RATE 34.4 (>39); MB/CK RELATIVE INDEX 9.35 (< OR =4); POTASSIUM SERUM 4.6 MEQ/L (3.5-5.1); TOTAL PROTEIN 6.1 GM/DL (6.4-8.2)
[2022-03-31 13:00] VITALS: BP 133/69
== END 2022-03-31 13:19 | disposition home or self-care (01) ==
LOC: M ED 10:04
DX: R55 Syncope and collapse (principal); D50.9 Iron deficiency anemia, unspecified; J96.11 Chronic respiratory failure with hypoxia; R00.1 Bradycardia, unspecified; I45.10 Unspecified right bundle-branch block; I44.4 Left anterior fascicular block; I25.2 Old myocardial infarction; E78.5 Hyperlipidemia, unspecified; J44.9 Chronic obstructive pulmonary disease, unspecified; N18.30 Chronic kidney disease, stage 3 unspecified; I10 Essential (primary) hypertension; E11.9 Type 2 diabetes mellitus without complications; F17.200 Nicotine dependence, unspecified, uncomplicated; Z86.79 Personal history of other diseases of the circulatory system; Z91.048 Other nonmedicinal substance allergy status; Z79.51 Long term (current) use of inhaled steroids; Z79.4 Long term (current) use of insulin; Z79.811 Long term (current) use of aromatase inhibitors; Z79.899 Other long term (current) drug therapy

== ENCOUNTER → 2022-04-02 | Outpatient (CLI) | payer MEDICARE | LOC: M RAD 14:38 | PROVIDERS: ATTEND Nurse Practitioner Adult Health | DX: E11.622 Type 2 diabetes mellitus with other skin ulcer (principal); L97.529 Non-pressure chronic ulcer of other part of left foot with unspecified severity ==

== ENCOUNTER → 2022-04-15 | Outpatient (CLI) | payer MEDICARE, MEDICAID ==
[~2022-04-15] VITALS: Ht 160 cm; Wt 67.7 kg
[2022-04-15 14:54] VITALS: BP 121/61
== END ==
LOC: M PAL 14:11
PROVIDERS: ATTEND Nurse Practitioner Adult Health
DX: I50.30 Unspecified diastolic (congestive) heart failure (principal); J44.9 Chronic obstructive pulmonary disease, unspecified; J84.10 Pulmonary fibrosis, unspecified; N18.30 Chronic kidney disease, stage 3 unspecified; R06.02 Shortness of breath; E10.622 Type 1 diabetes mellitus with other skin ulcer; G61.9 Inflammatory polyneuropathy, unspecified; L97.528 Non-pressure chronic ulcer of other part of left foot with other specified severity; E87.5 Hyperkalemia; I27.20 Pulmonary hypertension, unspecified; E10.40 Type 1 diabetes mellitus with diabetic neuropathy, unspecified; E78.5 Hyperlipidemia, unspecified; K21.9 Gastro-esophageal reflux disease without esophagitis; G25.81 Restless legs syndrome; M10.9 Gout, unspecified; M51.36 Other intervertebral disc degeneration, lumbar region; R29.6 Repeated falls; Z72.0 Tobacco use; Z79.891 Long term (current) use of opiate analgesic; Z79.51 Long term (current) use of inhaled steroids; Z79.4 Long term (current) use of insulin; Z79.82 Long term (current) use of aspirin; Z51.5 Encounter for palliative care; Z66 Do not resuscitate

== ENCOUNTER 2022-04-16 09:40 | Outpatient (CLI) | payer MEDICARE, MEDICAID ==
[~2022-04-16] VITALS: Ht 160 cm; Wt 67.3 kg
[~2022-04-16 09:40] MED LIST changes: +ALBUTEROL SULFATE 2.5 MG/0.5 ML INH NEB SOLN INH PRN; +EPINEPHrine INJ 1 MG/ML 1ML AMP IM PRN; +IRON SUCROSE 500 MG in NS 475 ML IV ONE; +NS 1,000 ML IV SCH; +diphenhydrAMINE 50MG/ML VIAL IV PRN; +methylPREDNISolone 125MG 2ML VIAL IV PRN
[2022-04-16 09:45] VITALS: BP 144/70
[2022-04-16 11:00] VITALS: BP 142/79
[2022-04-16 14:10] VITALS: BP 152/72
== END 2022-04-16 14:15 | disposition home or self-care (01) ==
LOC: M INFU 09:40
PROVIDERS: ATTEND Internal Medicine Nephrology
DX: D50.9 Iron deficiency anemia, unspecified (principal)
CPT/HCPCS: 96365; 96366; J1756

== ENCOUNTER 2022-04-30 08:50 | Outpatient (CLI) | payer MEDICAID, MEDICARE ==
[~2022-04-30] VITALS: Ht 160 cm; Wt 68.1 kg
[2022-04-30 08:50] VITALS: BP 164/81
[~2022-04-30 08:50] MED LIST changes: -ALBUTEROL SULFATE 2.5 MG/0.5 ML INH NEB SOLN INH PRN; +ALBUTEROL SULFATE 2.5MG/0.5ML INH NEB SOLN INH PRN; -IRON SUCROSE 500 MG in NS 475 ML IV ONE; -NS 1,000 ML IV SCH
[2022-04-30] MEDS ORDERED: IRON SUCROSE 500 MG in NS 475 ML IV ONE (09:00)
[2022-04-30] MEDS ORDERED: NS 1,000 ML IV SCH (09:00)
[2022-04-30 11:00] VITALS: BP 142/76
[2022-04-30 12:15] VITALS: BP 139/92
[2022-04-30 13:50] VITALS: BP 168/89
== END 2022-04-30 13:50 | disposition home or self-care (01) ==
LOC: M INFU 08:50
PROVIDERS: ATTEND Internal Medicine Nephrology
DX: D50.9 Iron deficiency anemia, unspecified (principal); Z91.048 Other nonmedicinal substance allergy status

== ENCOUNTER 2022-05-01 15:30 | Emergency (ER) | payer MEDICARE, MEDICAID ==
[~2022-05-01] VITALS: Ht 160 cm; Wt 68.2 kg
[~2022-05-01 15:30] MED LIST changes: -ALBUTEROL SULFATE 2.5MG/0.5ML INH NEB SOLN INH PRN; -EPINEPHrine INJ 1 MG/ML 1ML AMP IM PRN; -diphenhydrAMINE 50MG/ML VIAL IV PRN; -methylPREDNISolone 125MG 2ML VIAL IV PRN
[2022-05-01 17:57] VITALS: BP 163/83
== END 2022-05-01 18:10 | disposition home or self-care (01) ==
LOC: M ED 15:30
DX: S51.811A Laceration without foreign body of right forearm, initial encounter (principal); S40.011A Contusion of right shoulder, initial encounter; S80.01XA Contusion of right knee, initial encounter; W07.XXXA Fall from chair, initial encounter; I10 Essential (primary) hypertension; E11.9 Type 2 diabetes mellitus without complications; J44.9 Chronic obstructive pulmonary disease, unspecified; N18.30 Chronic kidney disease, stage 3 unspecified; I51.9 Heart disease, unspecified; Z91.048 Other nonmedicinal substance allergy status; Z79.51 Long term (current) use of inhaled steroids; Z79.4 Long term (current) use of insulin; Z79.811 Long term (current) use of aromatase inhibitors; Z79.899 Other long term (current) drug therapy

== ENCOUNTER 2022-05-03 11:29 | Inpatient (IN) | payer MEDICARE, MEDICAID ==
[~2022-05-03] VITALS: Ht 160 cm; Wt 65.6 kg
[2022-05-03 13:58] LABS: BASO # 0.1 10^3/uL (0.0-0.2); BASO % 0.4 % (0.0-1.0); EOS # 0.2 10^3/uL (0.0-0.5); EOS % 1.4 % (0.0-3.0); HEMATOCRIT 32.2 % (36.0-47.0); HEMOGLOBIN 9.3 g/dl (12.0-15.5); LYMPH # 1.7 10^3/uL (1.5-5.0); LYMPH % 12.2 % (24.0-44.0); MEAN CORPUSCULAR HGB CONC 28.9 g/dl (32.0-36.5); MEAN CORPUSCULAR VOLUME 83.2 fl (80.0-96.0); MONO # 1.2 10^3/uL (0.0-0.8); MONO % 8.8 % (2.0-8.0); NEUTROPHILS # 10.8 10^3/uL (1.5-8.5); NEUTROPHILS % 76.6 % (36.0-66.0); PLATELET COUNT, AUTOMATED 144 10^3/uL (150-450); RED BLOOD COUNT 3.87 10^6/uL (4.00-5.40); WHITE BLOOD COUNT 14.1 10^3/uL (4.0-10.0)
[2022-05-03 14:34] LABS: RSV AMPLIFICATION NEGATIVE (NEGATIVE)
[2022-05-03 14:36] LABS: ACETAMINOPHEN LEVEL < 2.0 UG/ML (10.0-20.0)
[2022-05-03 14:37] LABS: ALKALINE PHOSPHATASE 134 U/L (46-116); ALT/SGPT 77 U/L (7.0-40); AST/SGOT 39 U/L (<34); BILIRUBIN,DIRECT 0.2 MG/DL (<0.4); BILIRUBIN,TOTAL 0.5 MG/DL (0.3-1.2); BLOOD UREA NITROGEN 38 MG/DL (9-23); CALCIUM LEVEL 8.2 MG/DL (8.3-10.6); CARBON DIOXIDE LEVEL 30 MMOL/L (20-31); CHLORIDE LEVEL 104 MMOL/L (98-107); CK-MB VALUE MASS 3.4 NG/ML (<3.6); CPK CREATINE PHOSPHOKINASE 45 U/L (34-145); CREATININE FOR GFR 1.35 MG/DL (0.55-1.30); GLOMERULAR FILTRATION RATE 40.6 (>39); GLUCOSE, FASTING 130 MG/DL (74-106); MB/CK RELATIVE INDEX 7.55 (< OR =4); POTASSIUM SERUM 4.5 MMOL/L (3.5-5.1); SALICYLATE LEVEL < 3.0 MG/DL (<30); SODIUM LEVEL 140 MMOL/L (136-145); TOTAL PROTEIN 5.9 G/DL (5.7-8.2)
[2022-05-03 14:39] LABS: THYROID STIMULATING HORMONE 1.506 uIU/ML (0.55-4.78)
[2022-05-03] MEDS ORDERED: CIPROFLOXACIN 400 MG in IV 1 EA IV ONE (15:40)
[2022-05-03] MEDS ORDERED: cefTAZidime 2 GM in D5W MINI-BAG PLUS 50 ML IV ONE (15:55)
[2022-05-03 16:42] LABS: CK-MB VALUE MASS 4.1 NG/ML (<3.6)
[2022-05-03] MEDS: MORPHINE 2 MG/ML 1ML VIAL IV PRN ×2 (18:18→21:00)
[2022-05-03] MEDS ORDERED: GLUCAGON INJ 1MG VIAL SC PRN (18:35)
[2022-05-03] MEDS ORDERED: GLUCOSE 4GM CHEW TABLET PO PRN (18:35)
[2022-05-03] MEDS ORDERED: DEXTROSE 50% 50 ML SYRINGE IV PRN (18:35)
[2022-05-03] MEDS ORDERED: ATRO1OPD OS (19:24)
[2022-05-03] MEDS ORDERED: CARV3.12 PO (19:24)
[2022-05-03] MEDS ORDERED: LYRI200C PO (19:24)
[2022-05-03] MEDS ORDERED: TORS20TA2 PO (19:24)
[2022-05-03] MEDS ORDERED: PRESCAP PO (19:24)
[2022-05-03] MEDS ORDERED: PRED1SUS30 OS (19:24)
[2022-05-03] MEDS ORDERED: HYDR-4517 PO (19:24)
[2022-05-03] MEDS ORDERED: HUMU1INJ2 SC (19:24)
[2022-05-03] MEDS ORDERED: XALA0.007 OD (19:24)
[2022-05-03] MEDS ORDERED: HOME MED LIST COMPLETE! XX SCH (19:25)
[2022-05-03] MEDS ORDERED: POLYVINYL ALCOHOL OPHTH SOLN 15ML (LIQUITEARS) OU PRN (20:45)
[2022-05-03] MEDS ORDERED: ALBUTEROL 90 MCG/ACT 8GM HFA INHALER INH PRN (20:45)
[2022-05-03] MEDS ORDERED: DOCUSATE SODIUM 100MG CAPSULE PO PRN (20:45)
[2022-05-03] MEDS ORDERED: NYSTATIN 100,000 UNITS/GM TOPICAL PWD 15GM TOP PRN (20:45)
[2022-05-03] MEDS: FUROSEMIDE 100MG/10ML VIAL (J1940) IV SCH (20:53)
[2022-05-03] MEDS ORDERED: FAMOTIDINE 20 MG TAB PO SCH (21:00)
[2022-05-03 22:00] VITALS: BP 138/60
[2022-05-03] MEDS: rOPINIRole 0.25 MG TAB(REQUIP) PO SCH (22:00)
[2022-05-03] MEDS: INSULIN LISPRO (NovoLOG) PER UNIT SC SCH (22:00)
[2022-05-03] MEDS: ANEXSIA, NORCO 7.5MG/325MG TABLET(HYDROCODONE/APAP) PO PRN (22:01)
[2022-05-03] MEDS: CARVedilol 3.125 MG TAB PO SCH (22:02)
[2022-05-03] MEDS: POTASSIUM CHLORIDE 10MEQ SR TABLET PO SCH (22:02)
[2022-05-03] MEDS: ASPIRIN 81MG ENTERIC TABLET PO SCH (22:02)
[2022-05-03] MEDS: PREGABALIN 100 MG CAP (LYRICA) PO SCH (22:03)
[2022-05-03] MEDS: DULoxetine 30MG CAPSULE (CYMBALTA) PO SCH (22:03)
[2022-05-03] MEDS: ROSUVASTATIN 10 MG TAB (CRESTOR) PO SCH (22:03)
[2022-05-03] MEDS: MAGNESIUM OXIDE 400MG TAB (MAG-OX) PO SCH (22:04)
[2022-05-03] MEDS: OCUVITE 1 TAB PO SCH (22:04)
[2022-05-03] MEDS: LATANOPROST 0.005% OPHTH SOLN 2.5 ML OD SCH (22:05)
[2022-05-03] MEDS: ATROPINE SULFATE 1% OP SOLN 2 ML BTL OS SCH (22:05)
[2022-05-04] VITALS (7 sets, daily range): BP systolic 135–162; BP diastolic 66–88
[2022-05-04] MEDS: FUROSEMIDE 100MG/10ML VIAL (J1940) IV SCH ×4 (00:34→23:07)
[2022-05-04 01:41] LABS: CK-MB VALUE MASS 3.4 NG/ML (<3.6)
[2022-05-04 01:42] LABS: MB/CK RELATIVE INDEX 13.6 (< OR =4)
[2022-05-04] MEDS ORDERED: cefTAZidime 2 GM in D5W MINI-BAG PLUS 50 ML IV SCH (04:00)
[2022-05-04 06:45] LABS: HEMATOCRIT 32.9 % (36.0-47.0); HEMOGLOBIN 9.4 g/dl (12.0-15.5); MEAN CORPUSCULAR HEMOGLOBIN 23.6 pg (27.0-33.0); MEAN CORPUSCULAR HGB CONC 28.6 g/dl (32.0-36.5); MEAN CORPUSCULAR VOLUME 82.5 fl (80.0-96.0); PLATELET COUNT, AUTOMATED 150 10^3/uL (150-450); RED BLOOD COUNT 3.99 10^6/uL (4.00-5.40); WHITE BLOOD COUNT 14.5 10^3/uL (4.0-10.0)
[2022-05-04 07:10] LABS: CALCIUM LEVEL 8.5 MG/DL (8.3-10.6); CREATININE FOR GFR 1.25 MG/DL (0.55-1.30); GLOMERULAR FILTRATION RATE 44.4 (>39); POTASSIUM SERUM 4.2 MMOL/L (3.5-5.1)
[2022-05-04 08:27] LABS: CK-MB VALUE MASS 3.3 NG/ML (<3.6)
[2022-05-04 08:29] LABS: MB/CK RELATIVE INDEX 11.37 (< OR =4)
[2022-05-04] MEDS: DULoxetine 30MG CAPSULE (CYMBALTA) PO SCH ×2 (09:07→21:30)
[2022-05-04] MEDS: MAGNESIUM OXIDE 400MG TAB (MAG-OX) PO SCH ×2 (09:08→21:31)
[2022-05-04] MEDS: POTASSIUM CHLORIDE 10MEQ SR TABLET PO SCH ×2 (09:09→21:30)
[2022-05-04] MEDS: CARVedilol 3.125 MG TAB PO SCH ×2 (09:09→21:31)
[2022-05-04] MEDS: FAMOTIDINE 20 MG TAB PO SCH (09:09)
[2022-05-04] MEDS: INSULIN LISPRO (NovoLOG) PER UNIT SC SCH ×4 (09:09→20:37)
[2022-05-04] MEDS: PREGABALIN 100 MG CAP (LYRICA) PO SCH ×2 (09:09→21:44)
[2022-05-04] MEDS: allopurinoL 300 MG TAB PO SCH (09:09)
[2022-05-04] MEDS: ATROPINE SULFATE 1% OP SOLN 2 ML BTL OS SCH ×2 (09:10→21:00)
[2022-05-04] MEDS: OCUVITE 1 TAB PO SCH ×2 (12:17→21:30)
[2022-05-04] MEDS: ERTAPENEM SODIUM 1 GM in NS MINI-BAG PLUS 50 ML IV SCH (15:44)
[2022-05-04 16:10] LABS: PERCENT SATURATION 10.8 % (13.2-45.0)
[2022-05-04 16:12] LABS: FERRITIN 347.1 NG/ML (7.3-270.7)
[2022-05-04] MEDS: LATANOPROST 0.005% OPHTH SOLN 2.5 ML OD SCH (21:00)
[2022-05-04] MEDS: ROSUVASTATIN 10 MG TAB (CRESTOR) PO SCH (21:30)
[2022-05-04] MEDS: rOPINIRole 0.25 MG TAB(REQUIP) PO SCH (21:30)
[2022-05-04] MEDS: ASPIRIN 81MG ENTERIC TABLET PO SCH (21:30)
[2022-05-04] MEDS: ANEXSIA, NORCO 7.5MG/325MG TABLET(HYDROCODONE/APAP) PO PRN (21:31)
[2022-05-04] MEDS: HEPARIN SOD (PORCINE) 5000UNITS/ML 1ML VIAL/SYRINGE SQ SCH (21:33)
[2022-05-05] VITALS: BP 141/72
[2022-05-05 04:00] VITALS: BP 109/55
[2022-05-05 05:19] LABS: HEMATOCRIT 33.4 % (36.0-47.0); HEMOGLOBIN 9.8 g/dl (12.0-15.5); MEAN CORPUSCULAR HEMOGLOBIN 24.3 pg (27.0-33.0); MEAN CORPUSCULAR HGB CONC 29.3 g/dl (32.0-36.5); MEAN CORPUSCULAR VOLUME 82.7 fl (80.0-96.0); PLATELET COUNT, AUTOMATED 141 10^3/uL (150-450); RED BLOOD COUNT 4.04 10^6/uL (4.00-5.40); WHITE BLOOD COUNT 14.2 10^3/uL (4.0-10.0)
[2022-05-05] MEDS: HEPARIN SOD (PORCINE) 5000UNITS/ML 1ML VIAL/SYRINGE SQ SCH ×3 (05:27→21:02)
[2022-05-05 05:54] LABS: CALCIUM LEVEL 8.6 MG/DL (8.3-10.6); CREATININE FOR GFR 1.22 MG/DL (0.55-1.30); GLOMERULAR FILTRATION RATE 45.6 (>39); POTASSIUM SERUM 4.6 MMOL/L (3.5-5.1)
[2022-05-05 07:34] VITALS: BP 134/71
[2022-05-05] MEDS: INSULIN LISPRO (NovoLOG) PER UNIT SC SCH ×4 (08:27→20:02)
[2022-05-05] MEDS: MAGNESIUM OXIDE 400MG TAB (MAG-OX) PO SCH ×2 (08:27→20:45)
[2022-05-05] MEDS: DULoxetine 30MG CAPSULE (CYMBALTA) PO SCH ×2 (08:27→20:45)
[2022-05-05] MEDS: ATROPINE SULFATE 1% OP SOLN 2 ML BTL OS SCH ×2 (08:27→20:46)
[2022-05-05] MEDS: PREGABALIN 100 MG CAP (LYRICA) PO SCH ×2 (08:28→20:45)
[2022-05-05] MEDS: FAMOTIDINE 20 MG TAB PO SCH (08:28)
[2022-05-05] MEDS: allopurinoL 300 MG TAB PO SCH (08:28)
[2022-05-05] MEDS: POTASSIUM CHLORIDE 10MEQ SR TABLET PO SCH ×2 (08:28→20:45)
[2022-05-05] MEDS: CARVedilol 3.125 MG TAB PO SCH ×2 (08:28→20:46)
[2022-05-05] MEDS: ANEXSIA, NORCO 7.5MG/325MG TABLET(HYDROCODONE/APAP) PO PRN (08:42)
[2022-05-05] MEDS ORDERED: ISOVUE-370 76% 100ML VIAL As Ordered ONE (11:38)
[2022-05-05] MEDS: OCUVITE 1 TAB PO SCH ×2 (12:03→20:46)
[2022-05-05] MEDS: FUROSEMIDE 100MG/10ML VIAL (J1940) IV SCH ×2 (13:22→23:22)
[2022-05-05 13:26] VITALS: BP 132/73
[2022-05-05] MEDS: ERTAPENEM SODIUM 1 GM in NS MINI-BAG PLUS 50 ML IV SCH (14:16)
[2022-05-05 16:00] VITALS: BP 131/72
[2022-05-05 20:29] VITALS: BP 136/73
[2022-05-05] MEDS: ASPIRIN 81MG ENTERIC TABLET PO SCH (20:45)
[2022-05-05] MEDS: ROSUVASTATIN 10 MG TAB (CRESTOR) PO SCH (20:45)
[2022-05-05] MEDS: rOPINIRole 0.25 MG TAB(REQUIP) PO SCH (20:45)
[2022-05-05] MEDS: LATANOPROST 0.005% OPHTH SOLN 2.5 ML OD SCH (21:02)
[2022-05-06] VITALS (7 sets, daily range): BP systolic 108–150; BP diastolic 56–85
[2022-05-06 00:54] LABS: ALBUMIN 2.8 G/DL (3.2-5.2); BILIRUBIN,DIRECT 0.2 MG/DL (<0.4); BILIRUBIN,TOTAL 0.6 MG/DL (0.3-1.2); TOTAL PROTEIN 5.9 G/DL (5.7-8.2)
[2022-05-06 05:15] LABS: HEMATOCRIT 34.7 % (36.0-47.0); MEAN CORPUSCULAR HEMOGLOBIN 23.8 pg (27.0-33.0); MEAN CORPUSCULAR HGB CONC 28.8 g/dl (32.0-36.5); MEAN CORPUSCULAR VOLUME 82.6 fl (80.0-96.0); PLATELET COUNT, AUTOMATED 150 10^3/uL (150-450); WHITE BLOOD COUNT 11.6 10^3/uL (4.0-10.0)
[2022-05-06] MEDS: HEPARIN SOD (PORCINE) 5000UNITS/ML 1ML VIAL/SYRINGE SQ SCH ×3 (05:22→21:12)
[2022-05-06 05:44] LABS: BILIRUBIN,DIRECT 0.2 MG/DL (<0.4)
[2022-05-06 05:58] LABS: ALBUMIN 2.6 G/DL (3.2-5.2); BILIRUBIN,TOTAL 0.7 MG/DL (0.3-1.2); CALCIUM LEVEL 8.9 MG/DL (8.3-10.6); CREATININE FOR GFR 1.12 MG/DL (0.55-1.30); GLOMERULAR FILTRATION RATE 50.4 (>39); POTASSIUM SERUM 4.3 MMOL/L (3.5-5.1); TOTAL PROTEIN 5.5 G/DL (5.7-8.2)
[2022-05-06] MEDS: INSULIN LISPRO (NovoLOG) PER UNIT SC SCH ×4 (08:22→20:54)
[2022-05-06] MEDS: POTASSIUM CHLORIDE 10MEQ SR TABLET PO SCH ×2 (08:27→21:10)
[2022-05-06] MEDS: PREGABALIN 100 MG CAP (LYRICA) PO SCH ×2 (08:28→20:05)
[2022-05-06] MEDS: CARVedilol 3.125 MG TAB PO SCH ×2 (08:28→21:11)
[2022-05-06] MEDS: OCUVITE 1 TAB PO SCH ×2 (08:28→21:11)
[2022-05-06] MEDS: FAMOTIDINE 20 MG TAB PO SCH (08:28)
[2022-05-06] MEDS: allopurinoL 300 MG TAB PO SCH (08:28)
[2022-05-06] MEDS: DULoxetine 30MG CAPSULE (CYMBALTA) PO SCH ×2 (08:28→21:10)
[2022-05-06] MEDS: MAGNESIUM OXIDE 400MG TAB (MAG-OX) PO SCH ×2 (08:28→21:10)
[2022-05-06] MEDS: ATROPINE SULFATE 1% OP SOLN 2 ML BTL OS SCH ×2 (08:29→21:14)
[2022-05-06] MEDS ORDERED: cefTRIAXone SOD 1 GM in D5W MINI-BAG PLUS 50 ML IV SCH (09:00)
[2022-05-06] MEDS: FUROSEMIDE 100MG/10ML VIAL (J1940) IV SCH (11:42)
[2022-05-06] MEDS ORDERED: POLYVINYL ALCOHOL OPHTH SOLN 15ML (LIQUITEARS) OU SCH (14:10)
[2022-05-06] MEDS: prednisoLONE ACET 1% OPHTH SUSP 5ML OS SCH ×2 (14:10→21:11)
[2022-05-06] MEDS ORDERED: FERRIC CARBOXYMALTOSE INJ 1,000 MG, VIAL MATE ADAPTER 1 EACH in NS 250 ML IV ONE ×2 (18:00→20:00)
[2022-05-06] MEDS ORDERED: FERRIC CARBOXYMALTOSE INJ 1,000 MG in NS 250 ML IV ONE (20:00)
[2022-05-06] MEDS: ROSUVASTATIN 10 MG TAB (CRESTOR) PO SCH (21:10)
[2022-05-06] MEDS: rOPINIRole 0.25 MG TAB(REQUIP) PO SCH (21:10)
[2022-05-06] MEDS: ASPIRIN 81MG ENTERIC TABLET PO SCH (21:10)
[2022-05-06] MEDS: POLYVINYL ALCOHOL OPHTH SOLN 15ML (LIQUITEARS) OU SCH (21:12)
[2022-05-06] MEDS: LATANOPROST 0.005% OPHTH SOLN 2.5 ML OD SCH (21:14)
[2022-05-07] MEDS: HEPARIN SOD (PORCINE) 5000UNITS/ML 1ML VIAL/SYRINGE SQ SCH ×3 (05:15→21:47)
[2022-05-07 05:41] LABS: HEMATOCRIT 32.6 % (36.0-47.0); HEMOGLOBIN 9.4 g/dl (12.0-15.5); MEAN CORPUSCULAR HEMOGLOBIN 23.8 pg (27.0-33.0); MEAN CORPUSCULAR HGB CONC 28.8 g/dl (32.0-36.5); MEAN CORPUSCULAR VOLUME 82.5 fl (80.0-96.0); PLATELET COUNT, AUTOMATED 154 10^3/uL (150-450); RED BLOOD COUNT 3.95 10^6/uL (4.00-5.40)
[2022-05-07 05:50] LABS: BILIRUBIN,DIRECT 0.3 MG/DL (<0.4)
[2022-05-07 05:51] LABS: ALBUMIN 2.5 G/DL (3.2-5.2); BILIRUBIN,TOTAL 0.6 MG/DL (0.3-1.2); CALCIUM LEVEL 8.7 MG/DL (8.3-10.6); CREATININE FOR GFR 1.27 MG/DL (0.55-1.30); GLOMERULAR FILTRATION RATE 43.6 (>39); POTASSIUM SERUM 4.4 MMOL/L (3.5-5.1); TOTAL PROTEIN 5.3 G/DL (5.7-8.2)
[2022-05-07] MEDS: cefTRIAXone SOD 1 GM in D5W MINI-BAG PLUS 50 ML IV SCH (08:06)
[2022-05-07] MEDS: INSULIN LISPRO (NovoLOG) PER UNIT SC SCH ×4 (08:07→20:19)
[2022-05-07 08:19] VITALS: BP 139/68
[2022-05-07] MEDS: FAMOTIDINE 20 MG TAB PO SCH (08:55)
[2022-05-07] MEDS: allopurinoL 300 MG TAB PO SCH (08:55)
[2022-05-07] MEDS: CARVedilol 3.125 MG TAB PO SCH ×2 (08:55→20:41)
[2022-05-07] MEDS: POTASSIUM CHLORIDE 10MEQ SR TABLET PO SCH ×2 (08:55→20:40)
[2022-05-07] MEDS: MAGNESIUM OXIDE 400MG TAB (MAG-OX) PO SCH ×2 (08:56→20:40)
[2022-05-07] MEDS: DULoxetine 30MG CAPSULE (CYMBALTA) PO SCH ×2 (08:56→20:41)
[2022-05-07] MEDS: OCUVITE 1 TAB PO SCH ×2 (08:56→20:41)
[2022-05-07] MEDS: METAMUCIL (PSYLLIUM) PACKET PO SCH ×2 (09:00→20:40)
[2022-05-07] MEDS: MIRALAX *UNIT DOSE* 17GM PACKET PO SCH ×2 (09:00→20:40)
[2022-05-07] MEDS: ATROPINE SULFATE 1% OP SOLN 2 ML BTL OS SCH ×2 (09:01→20:40)
[2022-05-07] MEDS: prednisoLONE ACET 1% OPHTH SUSP 5ML OS SCH ×2 (09:01→20:39)
[2022-05-07] MEDS: POLYVINYL ALCOHOL OPHTH SOLN 15ML (LIQUITEARS) OU SCH ×4 (09:01→20:28)
[2022-05-07] MEDS ORDERED: SENNA 8.6 MG TAB (SENOKOT) PO PRN (11:20)
[2022-05-07 12:04] VITALS: BP 136/68
[2022-05-07] MEDS: FUROSEMIDE 100MG/10ML VIAL (J1940) IV SCH ×3 (12:27→23:46)
[2022-05-07 16:00] VITALS: BP 152/73
[2022-05-07 20:27] VITALS: BP 133/70
[2022-05-07] MEDS: LATANOPROST 0.005% OPHTH SOLN 2.5 ML OD SCH (20:40)
[2022-05-07] MEDS: ASPIRIN 81MG ENTERIC TABLET PO SCH (20:40)
[2022-05-07] MEDS: ROSUVASTATIN 10 MG TAB (CRESTOR) PO SCH (20:40)
[2022-05-07] MEDS: rOPINIRole 0.25 MG TAB(REQUIP) PO SCH (20:41)
[2022-05-07] MEDS ORDERED: CEFDINIR 300 MG CAP (OMNICEF) PO SCH (21:00)
[2022-05-08 00:27] VITALS: BP 141/69
[2022-05-08 04:18] VITALS: BP 135/72
[2022-05-08] MEDS: HEPARIN SOD (PORCINE) 5000UNITS/ML 1ML VIAL/SYRINGE SQ SCH ×3 (06:13→23:15)
[2022-05-08 06:38] LABS: HEMATOCRIT 35.1 % (36.0-47.0); HEMOGLOBIN 10.1 g/dl (12.0-15.5); MEAN CORPUSCULAR HEMOGLOBIN 23.8 pg (27.0-33.0); MEAN CORPUSCULAR HGB CONC 28.8 g/dl (32.0-36.5); MEAN CORPUSCULAR VOLUME 82.6 fl (80.0-96.0); PLATELET COUNT, AUTOMATED 145 10^3/uL (150-450); RED BLOOD COUNT 4.25 10^6/uL (4.00-5.40); WHITE BLOOD COUNT 8.7 10^3/uL (4.0-10.0)
[2022-05-08 07:04] LABS: BILIRUBIN,DIRECT 0.3 MG/DL (<0.4)
[2022-05-08 07:05] LABS: ALBUMIN 2.4 G/DL (3.2-5.2); BILIRUBIN,TOTAL 0.7 MG/DL (0.3-1.2); CALCIUM LEVEL 8.5 MG/DL (8.3-10.6); CREATININE FOR GFR 1.11 MG/DL (0.55-1.30); GLOMERULAR FILTRATION RATE 50.9 (>39); POTASSIUM SERUM 3.7 MMOL/L (3.5-5.1); TOTAL PROTEIN 5.4 G/DL (5.7-8.2)
[2022-05-08 08:00] VITALS: BP 132/70
[2022-05-08] MEDS: prednisoLONE ACET 1% OPHTH SUSP 5ML OS SCH ×2 (09:00→20:19)
[2022-05-08] MEDS: METAMUCIL (PSYLLIUM) PACKET PO SCH ×2 (09:00→20:21)
[2022-05-08] MEDS: MIRALAX *UNIT DOSE* 17GM PACKET PO SCH ×2 (09:00→20:21)
[2022-05-08] MEDS: ATROPINE SULFATE 1% OP SOLN 2 ML BTL OS SCH ×2 (09:10→20:19)
[2022-05-08] MEDS: INSULIN LISPRO (NovoLOG) PER UNIT SC SCH ×4 (09:12→20:07)
[2022-05-08] MEDS: FAMOTIDINE 20 MG TAB PO SCH (09:13)
[2022-05-08] MEDS: allopurinoL 300 MG TAB PO SCH (09:13)
[2022-05-08] MEDS: OCUVITE 1 TAB PO SCH ×2 (09:14→20:21)
[2022-05-08] MEDS: POTASSIUM CHLORIDE 10MEQ SR TABLET PO SCH ×2 (09:15→20:21)
[2022-05-08] MEDS: DULoxetine 30MG CAPSULE (CYMBALTA) PO SCH ×2 (09:16→20:20)
[2022-05-08] MEDS: MAGNESIUM OXIDE 400MG TAB (MAG-OX) PO SCH ×2 (09:16→20:21)
[2022-05-08] MEDS: CARVedilol 3.125 MG TAB PO SCH ×2 (09:18→20:20)
[2022-05-08] MEDS: POLYVINYL ALCOHOL OPHTH SOLN 15ML (LIQUITEARS) OU SCH ×4 (09:19→20:19)
[2022-05-08] MEDS: cefTRIAXone SOD 1 GM in D5W MINI-BAG PLUS 50 ML IV SCH (09:20)
[2022-05-08] MEDS: ANEXSIA, NORCO 7.5MG/325MG TABLET(HYDROCODONE/APAP) PO PRN (10:18)
[2022-05-08 12:00] VITALS: BP 112/59
[2022-05-08] MEDS: FUROSEMIDE 100MG/10ML VIAL (J1940) IV SCH (12:46)
[2022-05-08 16:00] VITALS: BP 124/67
[2022-05-08] MEDS: LATANOPROST 0.005% OPHTH SOLN 2.5 ML OD SCH (20:19)
[2022-05-08] MEDS: ASPIRIN 81MG ENTERIC TABLET PO SCH (20:20)
[2022-05-08] MEDS: ROSUVASTATIN 10 MG TAB (CRESTOR) PO SCH (20:20)
[2022-05-08] MEDS: rOPINIRole 0.25 MG TAB(REQUIP) PO SCH (20:21)
[2022-05-08 20:32] VITALS: BP 122/56
[2022-05-09] VITALS (7 sets, daily range): BP systolic 131–148; BP diastolic 60–75
[2022-05-09] MEDS: FUROSEMIDE 100MG/10ML VIAL (J1940) IV SCH (00:32)
[2022-05-09] MEDS: HEPARIN SOD (PORCINE) 5000UNITS/ML 1ML VIAL/SYRINGE SQ SCH ×3 (06:33→20:36)
[2022-05-09 07:14] LABS: HEMOGLOBIN 10.5 g/dl (12.0-15.5); MEAN CORPUSCULAR HEMOGLOBIN 24.4 pg (27.0-33.0); MEAN CORPUSCULAR HGB CONC 29.2 g/dl (32.0-36.5); MEAN CORPUSCULAR VOLUME 83.5 fl (80.0-96.0); PLATELET COUNT, AUTOMATED 142 10^3/uL (150-450); RED BLOOD COUNT 4.31 10^6/uL (4.00-5.40); WHITE BLOOD COUNT 8.7 10^3/uL (4.0-10.0)
[2022-05-09 07:37] LABS: CALCIUM LEVEL 8.4 MG/DL (8.3-10.6); CREATININE FOR GFR 1.13 MG/DL (0.55-1.30); GLOMERULAR FILTRATION RATE 49.8 (>39); POTASSIUM SERUM 4.1 MMOL/L (3.5-5.1)
[2022-05-09] MEDS: prednisoLONE ACET 1% OPHTH SUSP 5ML OS SCH ×2 (08:07→20:23)
[2022-05-09] MEDS: LEVEMIR (INSULIN DETEMIR) 1 UNITS/0.01ML SC SCH (08:08)
[2022-05-09] MEDS: INSULIN LISPRO (NovoLOG) PER UNIT SC SCH ×4 (08:09→20:37)
[2022-05-09] MEDS: DULoxetine 30MG CAPSULE (CYMBALTA) PO SCH ×2 (08:09→20:20)
[2022-05-09] MEDS: FAMOTIDINE 20 MG TAB PO SCH (08:11)
[2022-05-09] MEDS: allopurinoL 300 MG TAB PO SCH (08:11)
[2022-05-09] MEDS: CARVedilol 3.125 MG TAB PO SCH ×2 (08:12→20:21)
[2022-05-09] MEDS: MAGNESIUM OXIDE 400MG TAB (MAG-OX) PO SCH ×2 (08:14→20:21)
[2022-05-09] MEDS: MIRALAX *UNIT DOSE* 17GM PACKET PO SCH ×2 (08:14→20:22)
[2022-05-09] MEDS: OCUVITE 1 TAB PO SCH ×2 (08:14→20:21)
[2022-05-09] MEDS: POTASSIUM CHLORIDE 10MEQ SR TABLET PO SCH ×2 (08:14→20:20)
[2022-05-09] MEDS: cefTRIAXone SOD 1 GM in D5W MINI-BAG PLUS 50 ML IV SCH (08:15)
[2022-05-09] MEDS: POLYVINYL ALCOHOL OPHTH SOLN 15ML (LIQUITEARS) OU SCH ×4 (08:15→20:23)
[2022-05-09] MEDS: METAMUCIL (PSYLLIUM) PACKET PO SCH ×2 (08:15→20:21)
[2022-05-09] MEDS: ATROPINE SULFATE 1% OP SOLN 2 ML BTL OS SCH ×2 (08:16→20:23)
[2022-05-09] MEDS: LACTOBACILLUS ACIDOPHILUS CAP (BACID) PO SCH ×2 (18:13→20:20)
[2022-05-09] MEDS: ASPIRIN 81MG ENTERIC TABLET PO SCH (20:20)
[2022-05-09] MEDS: rOPINIRole 0.25 MG TAB(REQUIP) PO SCH (20:20)
[2022-05-09] MEDS: ROSUVASTATIN 10 MG TAB (CRESTOR) PO SCH (20:21)
[2022-05-09] MEDS: LATANOPROST 0.005% OPHTH SOLN 2.5 ML OD SCH (20:22)
[2022-05-10] VITALS: BP 110/58
[2022-05-10 04:00] VITALS: BP 132/70
[2022-05-10] MEDS: HEPARIN SOD (PORCINE) 5000UNITS/ML 1ML VIAL/SYRINGE SQ SCH ×3 (05:22→21:36)
[2022-05-10 05:46] LABS: HEMATOCRIT 34.6 % (36.0-47.0); HEMOGLOBIN 10.1 g/dl (12.0-15.5); MEAN CORPUSCULAR HEMOGLOBIN 24.4 pg (27.0-33.0); MEAN CORPUSCULAR HGB CONC 29.2 g/dl (32.0-36.5); MEAN CORPUSCULAR VOLUME 83.6 fl (80.0-96.0); PLATELET COUNT, AUTOMATED 140 10^3/uL (150-450); RED BLOOD COUNT 4.14 10^6/uL (4.00-5.40); WHITE BLOOD COUNT 9.6 10^3/uL (4.0-10.0)
[2022-05-10 06:15] LABS: CALCIUM LEVEL 8.2 MG/DL (8.3-10.6); CREATININE FOR GFR 1.16 MG/DL (0.55-1.30); GLOMERULAR FILTRATION RATE 48.4 (>39); POTASSIUM SERUM 4.2 MMOL/L (3.5-5.1)
[2022-05-10 08:02] VITALS: BP 153/72
[2022-05-10] MEDS: POTASSIUM CHLORIDE 10MEQ SR TABLET PO SCH ×2 (08:19→21:35)
[2022-05-10] MEDS: DULoxetine 30MG CAPSULE (CYMBALTA) PO SCH ×2 (08:20→21:34)
[2022-05-10] MEDS: allopurinoL 300 MG TAB PO SCH (08:20)
[2022-05-10] MEDS: MAGNESIUM OXIDE 400MG TAB (MAG-OX) PO SCH ×2 (08:20→21:35)
[2022-05-10] MEDS: TORSEMIDE 20 MG TAB PO SCH (08:20)
[2022-05-10] MEDS: CARVedilol 3.125 MG TAB PO SCH ×2 (08:20→21:36)
[2022-05-10] MEDS: CEFDINIR 300 MG CAP (OMNICEF) PO SCH ×2 (08:20→21:35)
[2022-05-10] MEDS: FAMOTIDINE 20 MG TAB PO SCH (08:20)
[2022-05-10] MEDS: LACTOBACILLUS ACIDOPHILUS CAP (BACID) PO SCH ×4 (08:20→21:35)
[2022-05-10] MEDS: LEVEMIR (INSULIN DETEMIR) 1 UNITS/0.01ML SC SCH (08:21)
[2022-05-10] MEDS: OCUVITE 1 TAB PO SCH ×2 (08:21→21:35)
[2022-05-10] MEDS: INSULIN LISPRO (NovoLOG) PER UNIT SC SCH ×4 (08:22→21:00)
[2022-05-10] MEDS: POLYVINYL ALCOHOL OPHTH SOLN 15ML (LIQUITEARS) OU SCH ×4 (08:22→21:36)
[2022-05-10] MEDS: ATROPINE SULFATE 1% OP SOLN 2 ML BTL OS SCH ×2 (08:22→21:37)
[2022-05-10] MEDS: prednisoLONE ACET 1% OPHTH SUSP 5ML OS SCH ×2 (08:23→21:36)
[2022-05-10] MEDS: LIDOCAINE 5% (LIDODERM) PATCH TD SCH (08:24)
[2022-05-10] MEDS: MIRALAX *UNIT DOSE* 17GM PACKET PO SCH ×2 (08:33→21:00)
[2022-05-10] MEDS: METAMUCIL (PSYLLIUM) PACKET PO SCH ×2 (08:33→21:00)
[2022-05-10 12:28] VITALS: BP 108/55
[2022-05-10 15:21] VITALS: BP 126/68
[2022-05-10 19:47] VITALS: BP 151/77
[2022-05-10] MEDS: ASPIRIN 81MG ENTERIC TABLET PO SCH (21:34)
[2022-05-10] MEDS: ROSUVASTATIN 10 MG TAB (CRESTOR) PO SCH (21:34)
[2022-05-10] MEDS: rOPINIRole 0.25 MG TAB(REQUIP) PO SCH (21:34)
[2022-05-10] MEDS: LATANOPROST 0.005% OPHTH SOLN 2.5 ML OD SCH (21:37)
[2022-05-11 00:03] VITALS: BP 124/69
[2022-05-11 04:04] VITALS: BP 139/73
[2022-05-11] MEDS: HEPARIN SOD (PORCINE) 5000UNITS/ML 1ML VIAL/SYRINGE SQ SCH ×3 (06:22→21:05)
[2022-05-11] MEDS: INSULIN LISPRO (NovoLOG) PER UNIT SC SCH ×4 (08:22→21:00)
[2022-05-11] MEDS: LEVEMIR (INSULIN DETEMIR) 1 UNITS/0.01ML SC SCH (08:22)
[2022-05-11] MEDS: DULoxetine 30MG CAPSULE (CYMBALTA) PO SCH ×2 (08:23→21:07)
[2022-05-11] MEDS: CARVedilol 3.125 MG TAB PO SCH ×2 (08:23→21:06)
[2022-05-11] MEDS: allopurinoL 300 MG TAB PO SCH (08:23)
[2022-05-11] MEDS: LACTOBACILLUS ACIDOPHILUS CAP (BACID) PO SCH ×4 (08:23→21:06)
[2022-05-11] MEDS: FAMOTIDINE 20 MG TAB PO SCH (08:23)
[2022-05-11 08:27] VITALS: BP 137/76
[2022-05-11] MEDS: TIOTROPIUM INHALER/CAPSULE (SPIRIVA) INH SCH (08:50)
[2022-05-11] MEDS: METAMUCIL (PSYLLIUM) PACKET PO SCH ×2 (09:00→21:19)
[2022-05-11] MEDS: MIRALAX *UNIT DOSE* 17GM PACKET PO SCH ×2 (09:00→21:00)
[2022-05-11] MEDS: OCUVITE 1 TAB PO SCH ×2 (09:22→21:18)
[2022-05-11] MEDS: prednisoLONE ACET 1% OPHTH SUSP 5ML OS SCH ×2 (09:23→21:10)
[2022-05-11] MEDS: MAGNESIUM OXIDE 400MG TAB (MAG-OX) PO SCH ×2 (09:23→21:07)
[2022-05-11] MEDS: LIDOCAINE 5% (LIDODERM) PATCH TD SCH (09:23)
[2022-05-11] MEDS: POTASSIUM CHLORIDE 10MEQ SR TABLET PO SCH ×2 (09:23→21:05)
[2022-05-11] MEDS: TORSEMIDE 20 MG TAB PO SCH (09:23)
[2022-05-11] MEDS: ATROPINE SULFATE 1% OP SOLN 2 ML BTL OS SCH ×2 (09:24→21:10)
[2022-05-11] MEDS: POLYVINYL ALCOHOL OPHTH SOLN 15ML (LIQUITEARS) OU SCH ×4 (09:24→21:09)
[2022-05-11] MEDS: CEFDINIR 300 MG CAP (OMNICEF) PO SCH ×2 (09:26→21:06)
[2022-05-11 11:45] VITALS: BP 128/67
[2022-05-11] MEDS: ACETAMINOPHEN 500 MG TAB PO PRN (13:24)
[2022-05-11 16:10] VITALS: BP 107/55
[2022-05-11 20:14] VITALS: BP 127/70
[2022-05-11] MEDS: ASPIRIN 81MG ENTERIC TABLET PO SCH (21:06)
[2022-05-11] MEDS: ROSUVASTATIN 10 MG TAB (CRESTOR) PO SCH (21:07)
[2022-05-11] MEDS: LATANOPROST 0.005% OPHTH SOLN 2.5 ML OD SCH (21:09)
[2022-05-11] MEDS: rOPINIRole 0.25 MG TAB(REQUIP) PO SCH (21:18)
[2022-05-12] VITALS: BP 130/69
[2022-05-12 04:29] VITALS: BP 133/67
[2022-05-12] MEDS: HEPARIN SOD (PORCINE) 5000UNITS/ML 1ML VIAL/SYRINGE SQ SCH ×3 (06:00→20:32)
[2022-05-12] MEDS: INSULIN LISPRO (NovoLOG) PER UNIT SC SCH ×4 (07:30→20:31)
[2022-05-12 07:44] VITALS: BP 137/66
[2022-05-12] MEDS: ACETAMINOPHEN 500 MG TAB PO PRN (07:49)
[2022-05-12] MEDS: LACTOBACILLUS ACIDOPHILUS CAP (BACID) PO SCH ×4 (07:49→20:29)
[2022-05-12 08:00] VITALS: BP 137/66
[2022-05-12] MEDS: FAMOTIDINE 20 MG TAB PO SCH (08:41)
[2022-05-12] MEDS: LEVEMIR (INSULIN DETEMIR) 1 UNITS/0.01ML SC SCH (08:41)
[2022-05-12] MEDS: DULoxetine 30MG CAPSULE (CYMBALTA) PO SCH ×2 (08:41→20:30)
[2022-05-12] MEDS: allopurinoL 300 MG TAB PO SCH (08:41)
[2022-05-12] MEDS: OCUVITE 1 TAB PO SCH ×2 (08:41→20:29)
[2022-05-12] MEDS: METAMUCIL (PSYLLIUM) PACKET PO SCH ×2 (08:42→20:29)
[2022-05-12] MEDS: TORSEMIDE 20 MG TAB PO SCH (08:42)
[2022-05-12] MEDS: CARVedilol 3.125 MG TAB PO SCH ×2 (08:42→20:31)
[2022-05-12] MEDS: MAGNESIUM OXIDE 400MG TAB (MAG-OX) PO SCH ×2 (08:42→20:30)
[2022-05-12] MEDS: POTASSIUM CHLORIDE 10MEQ SR TABLET PO SCH ×2 (08:42→20:30)
[2022-05-12] MEDS: LIDOCAINE 5% (LIDODERM) PATCH TD SCH (08:43)
[2022-05-12] MEDS: POLYVINYL ALCOHOL OPHTH SOLN 15ML (LIQUITEARS) OU SCH ×4 (08:43→20:33)
[2022-05-12] MEDS: prednisoLONE ACET 1% OPHTH SUSP 5ML OS SCH ×2 (08:44→20:33)
[2022-05-12] MEDS: MIRALAX *UNIT DOSE* 17GM PACKET PO SCH ×2 (08:44→20:31)
[2022-05-12] MEDS: ATROPINE SULFATE 1% OP SOLN 2 ML BTL OS SCH ×2 (08:44→20:33)
[2022-05-12] MEDS: TIOTROPIUM INHALER/CAPSULE (SPIRIVA) INH SCH (09:49)
[2022-05-12] MEDS: PREGABALIN 100 MG CAP (LYRICA) PO SCH ×2 (14:41→20:30)
[2022-05-12 20:00] VITALS: BP 120/56
[2022-05-12] MEDS: ASPIRIN 81MG ENTERIC TABLET PO SCH (20:29)
[2022-05-12] MEDS: rOPINIRole 0.25 MG TAB(REQUIP) PO SCH (20:29)
[2022-05-12] MEDS: ROSUVASTATIN 10 MG TAB (CRESTOR) PO SCH (20:30)
[2022-05-12] MEDS: LATANOPROST 0.005% OPHTH SOLN 2.5 ML OD SCH (20:33)
[2022-05-13] MEDS: HEPARIN SOD (PORCINE) 5000UNITS/ML 1ML VIAL/SYRINGE SQ SCH (06:09)
[2022-05-13] MEDS: TIOTROPIUM INHALER/CAPSULE (SPIRIVA) INH SCH (07:00)
[2022-05-13] MEDS: INSULIN LISPRO (NovoLOG) PER UNIT SC SCH ×3 (07:30→12:04)
[2022-05-13 08:00] VITALS: BP 119/59
[2022-05-13] MEDS: LEVEMIR (INSULIN DETEMIR) 1 UNITS/0.01ML SC SCH (08:26)
[2022-05-13] MEDS: MAGNESIUM OXIDE 400MG TAB (MAG-OX) PO SCH (08:27)
[2022-05-13] MEDS: TORSEMIDE 20 MG TAB PO SCH (08:27)
[2022-05-13] MEDS: POTASSIUM CHLORIDE 10MEQ SR TABLET PO SCH (08:27)
[2022-05-13] MEDS: DULoxetine 30MG CAPSULE (CYMBALTA) PO SCH (08:27)
[2022-05-13] MEDS: PREGABALIN 100 MG CAP (LYRICA) PO SCH (08:27)
[2022-05-13 08:28] VITALS: BP 119/59
[2022-05-13] MEDS: allopurinoL 300 MG TAB PO SCH (08:28)
[2022-05-13] MEDS: FAMOTIDINE 20 MG TAB PO SCH (08:28)
[2022-05-13] MEDS: LACTOBACILLUS ACIDOPHILUS CAP (BACID) PO SCH ×2 (08:28→12:05)
[2022-05-13] MEDS: CARVedilol 3.125 MG TAB PO SCH (08:28)
[2022-05-13] MEDS: OCUVITE 1 TAB PO SCH (08:28)
[2022-05-13] MEDS: MIRALAX *UNIT DOSE* 17GM PACKET PO SCH (08:29)
[2022-05-13] MEDS: LIDOCAINE 5% (LIDODERM) PATCH TD SCH (08:29)
[2022-05-13] MEDS: METAMUCIL (PSYLLIUM) PACKET PO SCH (08:29)
[2022-05-13] MEDS: POLYVINYL ALCOHOL OPHTH SOLN 15ML (LIQUITEARS) OU SCH ×2 (08:30→12:05)
[2022-05-13] MEDS: prednisoLONE ACET 1% OPHTH SUSP 5ML OS SCH (08:30)
[2022-05-13] MEDS: ATROPINE SULFATE 1% OP SOLN 2 ML BTL OS SCH (08:30)
[2022-05-13] MEDS ORDERED: NORCO, ANEXSIA 5/325MG TABLET (HYDROcodone/ACETAMINOPHEN) PO PRN (09:40)
[2022-05-13] MEDS ORDERED: HYDR-4517 PO (09:42)
== END 2022-05-13 13:39 | disposition home health service (06) | DRG 689 ==
LOC: M ED 11:29 → M ED INP 18:32 → ENRESERV 05-04 12:55 → M PCU 05-04 14:10
PROVIDERS: ADMIT Family Medicine; ATTEND Internal Medicine Nephrology
DX: N39.0 Urinary tract infection, site not specified (principal); I50.33 Acute on chronic diastolic (congestive) heart failure; G93.41 Metabolic encephalopathy; I13.0 Hypertensive heart and chronic kidney disease with heart failure and stage 1 through stage 4 chronic kidney disease, or unspecified chronic kidney disease; L97.909 Non-pressure chronic ulcer of unspecified part of unspecified lower leg with unspecified severity; F11.20 Opioid dependence, uncomplicated; J96.11 Chronic respiratory failure with hypoxia; Q21.0 Ventricular septal defect; R29.6 Repeated falls; E11.22 Type 2 diabetes mellitus with diabetic chronic kidney disease; E11.621 Type 2 diabetes mellitus with foot ulcer; E11.51 Type 2 diabetes mellitus with diabetic peripheral angiopathy without gangrene; J44.9 Chronic obstructive pulmonary disease, unspecified; N18.31 Chronic kidney disease, stage 3a; I27.20 Pulmonary hypertension, unspecified; F32.A Depression, unspecified; E11.42 Type 2 diabetes mellitus with diabetic polyneuropathy; I27.81 Cor pulmonale (chronic); D63.1 Anemia in chronic kidney disease; K21.9 Gastro-esophageal reflux disease without esophagitis; E78.5 Hyperlipidemia, unspecified; L97.529 Non-pressure chronic ulcer of other part of left foot with unspecified severity; G89.29 Other chronic pain; Z66 Do not resuscitate; M19.90 Unspecified osteoarthritis, unspecified site; M10.9 Gout, unspecified; R74.01 Elevation of levels of liver transaminase levels; Z99.81 Dependence on supplemental oxygen; R10.84 Generalized abdominal pain; R33.9 Retention of urine, unspecified; J84.10 Pulmonary fibrosis, unspecified; I25.10 Atherosclerotic heart disease of native coronary artery without angina pectoris; Z72.0 Tobacco use; B37.2 Candidiasis of skin and nail; B96.20 Unspecified Escherichia coli [E. coli] as the cause of diseases classified elsewhere; D50.9 Iron deficiency anemia, unspecified; G25.81 Restless legs syndrome; Z79.899 Other long term (current) drug therapy; Z79.82 Long term (current) use of aspirin

== ENCOUNTER 2022-05-25 21:16 | Inpatient (IN) | payer MEDICARE, MEDICAID ==
[~2022-05-25] VITALS: Ht 160 cm; Wt 66.1 kg
[~2022-05-25 21:16] MED LIST changes: +CARV3.12 PO; +PRED1SUS30 OS; +PRESCAP PO; +XALA0.007 OD
[2022-05-25 21:52] LABS: BASO # 0.1 10^3/uL (0.0-0.2); BASO % 0.3 % (0.0-1.0); EOS % 0.1 % (0.0-3.0); HEMATOCRIT 45.9 % (36.0-47.0); HEMOGLOBIN 13.3 g/dl (12.0-15.5); LYMPH # 1.7 10^3/uL (1.5-5.0); LYMPH % 6.5 % (24.0-44.0); MEAN CORPUSCULAR HEMOGLOBIN 25.6 pg (27.0-33.0); MEAN CORPUSCULAR VOLUME 88.4 fl (80.0-96.0); MONO # 1.2 10^3/uL (0.0-0.8); MONO % 4.6 % (2.0-8.0); NEUTROPHILS # 22.1 10^3/uL (1.5-8.5); NEUTROPHILS % 87.8 % (36.0-66.0); PLATELET COUNT, AUTOMATED 159 10^3/uL (150-450); RED BLOOD COUNT 5.19 10^6/uL (4.00-5.40); WHITE BLOOD COUNT 25.2 10^3/uL (4.0-10.0)
[2022-05-25 22:01] LABS: INR 1.1; PARTIAL THROMBOPLASTIN TIME 32.5 SECONDS (24.8-34.2); PROTHROMBIN TIME 14.4 SECONDS (12.5-14.5)
[2022-05-25 22:41] LABS: CALCIUM LEVEL 8.4 MG/DL (8.3-10.6); CREATININE FOR GFR 1.8 MG/DL (0.55-1.30); GLOMERULAR FILTRATION RATE 29.1 (>39); POTASSIUM SERUM 6.9 MMOL/L (3.5-5.1)
[2022-05-25] MEDS ORDERED: MORPHINE 4 MG/ML 1ML VIAL IV ONE (22:45)
[2022-05-25] MEDS ORDERED: ONDANSETRON 4MG 2ML VIAL IV ONE (22:45)
[2022-05-25] MEDS ORDERED: HumuLIN R (REGULAR) INSULIN (NovoLIN R) **100U/ML** PER UNIT IV ONE (23:05)
[2022-05-25] MEDS ORDERED: DEXTROSE 50% 50ML SYRINGE IV ONE (23:05)
[2022-05-25] MEDS ORDERED: SODIUM BICARBONATE 8.4% INJ 50ML SYRINGE IV ONE (23:05)
[2022-05-25] MEDS ORDERED: CALCIUM GLUCONATE 1,000MG/10ML VIAL (100MG/ML) (J0610) IV ONE (23:05)
[2022-05-25] MEDS ORDERED: NS 2,100 ML in IV 1 EA IV ONE (23:05)
[2022-05-25] MEDS ORDERED: NOREPINEPHRINE BITARTRATE 16 MG in D5W 484 ML IV SCH (23:35)
[2022-05-25] MEDS ORDERED: NOREPINEPHRINE 4MG IN D5 250ML 4 MG in IV 1 EA IV SCH ×2 (23:55)
[2022-05-25 23:56] LABS: CK-MB VALUE MASS 2.4 NG/ML (<3.6)
[2022-05-25 23:58] LABS: CALCIUM LEVEL 8.4 MG/DL (8.3-10.6); CREATININE FOR GFR 1.9 MG/DL (0.55-1.30); GLOMERULAR FILTRATION RATE 27.4 (>39); POTASSIUM SERUM 5.9 MMOL/L (3.5-5.1)
[2022-05-25 23:59] LABS: MB/CK RELATIVE INDEX 4.89 (< OR =4)
[2022-05-26] VITALS (29 sets, daily range): BP systolic 89–120; BP diastolic 50–67
[2022-05-26] MEDS ORDERED: CEFEPIME HCL 1 GM in D5W MINI-BAG PLUS 50 ML IV ONE ×2
[2022-05-26] MEDS ORDERED: VANCOMYCIN HCL 1,750 MG in IV FLUID PLACE HOLDER 1 EA IV ONE ×2
[2022-05-26] MEDS ORDERED: UNRESOLVED CLARIFICATION ENTRY XX STA (00:06)
[2022-05-26] MEDS ORDERED: ALBUTEROL SULFATE 2.5MG/0.5ML INH NEB SOLN NEB PRN (01:55)
[2022-05-26] MEDS ORDERED: NS 1,000 ML IV SCH ×2 (01:55→04:00)
[2022-05-26] MEDS ORDERED: HYDROMORPHONE HCL 0.5 MG/ 0.5 ML SYRINGE (J1170 PER 1) IV PRN (01:55)
[2022-05-26] MEDS: NOREPINEPHRINE 4MG IN D5 250ML 4 MG in IV 1 EA IV SCH ×4 (01:55→20:04)
[2022-05-26] MEDS ORDERED: DEXTROSE 50% 50ML SYRINGE IV PRN (01:55)
[2022-05-26] MEDS ORDERED: GLUCAGON INJ 1MG VIAL SC PRN (01:55)
[2022-05-26] MEDS ORDERED: GLUCOSE 4GM CHEW TABLET PO PRN (01:55)
[2022-05-26 02:32] LABS: CK-MB VALUE MASS 4.5 NG/ML (<3.6)
[2022-05-26] MEDS: IPRATROPIUM 0.5MG/ALBUTEROL 2.5MG INH SOL UD 3ML (DUONEB) NEB SCH ×4 (02:33→19:19)
[2022-05-26 02:36] LABS: MB/CK RELATIVE INDEX 6.25 (< OR =4)
[2022-05-26] MEDS ORDERED: VANCOMYCIN HCL 750 MG, VIAL MATE ADAPTER 1 EACH in D5W 250 ML IV ONE ×6 (03:00)
[2022-05-26] MEDS ORDERED: NS 500 ML IV ONE (05:55)
[2022-05-26] MEDS: INSULIN LISPRO (NovoLOG) PER UNIT SC SCH ×3 (06:00→17:53)
[2022-05-26] MEDS ORDERED: HumuLIN R (REGULAR) INSULIN (NovoLIN R) **100U/ML** PER UNIT IV STA (06:18)
[2022-05-26] MEDS ORDERED: FUROSEMIDE 40MG/4ML VIAL As Ordered ONE (06:24)
[2022-05-26] MEDS ORDERED: PRED10TA2 PO (06:49)
[2022-05-26] MEDS ORDERED: HYDR-3719 PO (06:49)
[2022-05-26] MEDS ORDERED: ALBU2.5V10 INH (06:49)
[2022-05-26] MEDS ORDERED: FUROSEMIDE 40 MG TAB PO ONE (07:00)
[2022-05-26] MEDS ORDERED: FUROSEMIDE 40MG/4ML VIAL IV ONE (07:00)
[2022-05-26] MEDS: HEPARIN DRIP 25,000 UNITS in IV 1 EA IV SCH (07:40)
[2022-05-26 07:53] LABS: INR 1.22; PARTIAL THROMBOPLASTIN TIME 36.5 SECONDS (24.8-34.2); PROTHROMBIN TIME 15.7 SECONDS (12.5-14.5)
[2022-05-26 08:02] LABS: ALBUMIN 2.4 G/DL (3.2-5.2); BILIRUBIN,TOTAL 0.6 MG/DL (0.3-1.2); CALCIUM LEVEL 7.6 MG/DL (8.3-10.6); CREATININE FOR GFR 1.84 MG/DL (0.55-1.30); GLOMERULAR FILTRATION RATE 28.4 (>39); POTASSIUM SERUM 5.2 MMOL/L (3.5-5.1); TOTAL PROTEIN 5.3 G/DL (5.7-8.2)
[2022-05-26 08:29] LABS: ABG BASE EXCESS -1.4 (-2.0-2.0); ABG HCO3 24.4 MEQ/L (22.0-26.0); ABG O2 SATURATION 93.5 % (95.0-99.0); ABG PARTIAL PRESSURE CO2 45.3 mmHg (35.0-45.0); ABG PARTIAL PRESSURE O2 73.6 mmHg (75.0-100.0); ABG STANDARD HCO3 23.2 MEQ/L (22.0-26.0); ABG TOTAL CO2 25.8 MEQ/L (23.0-31.0); ABG pH (ARTERIAL) 7.349 UNITS (7.350-7.450)
[2022-05-26 08:30] LABS: BASO # 0.1 10^3/uL (0.0-0.2); BASO % 0.4 % (0.0-1.0); EOS # 0.1 10^3/uL (0.0-0.5); EOS % 0.3 % (0.0-3.0); HEMATOCRIT 42.2 % (36.0-47.0); HEMOGLOBIN 12.3 g/dl (12.0-15.5); LYMPH # 2.2 10^3/uL (1.5-5.0); LYMPH % 12.2 % (24.0-44.0); MEAN CORPUSCULAR HEMOGLOBIN 25.8 pg (27.0-33.0); MEAN CORPUSCULAR HGB CONC 29.1 g/dl (32.0-36.5); MEAN CORPUSCULAR VOLUME 88.7 fl (80.0-96.0); MONO # 1.2 10^3/uL (0.0-0.8); MONO % 6.8 % (2.0-8.0); NEUTROPHILS # 14.4 10^3/uL (1.5-8.5); NEUTROPHILS % 79.8 % (36.0-66.0); PLATELET COUNT, AUTOMATED 125 10^3/uL (150-450); RED BLOOD COUNT 4.76 10^6/uL (4.00-5.40)
[2022-05-26 08:55] LABS: CK-MB VALUE MASS 6.3 NG/ML (<3.6)
[2022-05-26 08:59] LABS: MB/CK RELATIVE INDEX 8.63 (< OR =4)
[2022-05-26] MEDS ORDERED: HEPARIN SOD (PORCINE) 5000UNITS/ML 1ML VIAL/SYRINGE SC SCH (09:00)
[2022-05-26] MEDS ORDERED: FUROSEMIDE 100MG/10ML VIAL IV ONE (09:55)
[2022-05-26] MEDS ORDERED: ASPIRIN 81MG CHEW TABLET PO ONE (09:55)
[2022-05-26] MEDS ORDERED: MED REC COMMENT (11:48)
[2022-05-26] MEDS ORDERED: HOME MED LIST COMPLETE! XX SCH ×2 (11:50→22:05)
[2022-05-26] MEDS ORDERED: KCL 20MEQ IN 100ML SWI (KRUN) 20 MEQ in IV 1 EA IV ONE ×2 (13:15)
[2022-05-26] MEDS: CEFEPIME HCL 1 GM in D5W 50 ML IV SCH (15:20)
[2022-05-26] MEDS ORDERED: INSURSDRX SC (21:59)
[2022-05-26] MEDS ORDERED: NITR0.4S14 SL (22:04)
[2022-05-26] MEDS ORDERED: MELA10CA6 PO (22:04)
[2022-05-26] MEDS ORDERED: DULO1CAP6 PO (22:04)
[2022-05-26] MEDS ORDERED: FAMO20TA PO (22:04)
[2022-05-26] MEDS ORDERED: MAGN400T2 PO (22:04)
[2022-05-26] MEDS ORDERED: ROPI0.5T3 PO (22:04)
[2022-05-27] VITALS (27 sets, daily range): BP systolic 106–169; BP diastolic 56–90; O2SAT 93–98
[2022-05-27] MEDS: NYSTATIN 100,000 UNITS/GM TOPICAL PWD 15GM TOP SCH ×3 (01:03→20:46)
[2022-05-27] MEDS: CEFEPIME HCL 1 GM in D5W 50 ML IV SCH ×2 (01:03→13:25)
[2022-05-27] MEDS: INSULIN LISPRO (NovoLOG) PER UNIT SC SCH ×4 (01:08→17:46)
[2022-05-27] MEDS: IPRATROPIUM 0.5MG/ALBUTEROL 2.5MG INH SOL UD 3ML (DUONEB) NEB SCH ×4 (02:49→19:52)
[2022-05-27 05:38] LABS: ABG BASE EXCESS 2.2 (-2.0-2.0); ABG HCO3 26.9 MEQ/L (22.0-26.0); ABG O2 SATURATION 95.7 % (95.0-99.0); ABG PARTIAL PRESSURE CO2 42.3 mmHg (35.0-45.0); ABG PARTIAL PRESSURE O2 79.2 mmHg (75.0-100.0); ABG STANDARD HCO3 26.4 MEQ/L (22.0-26.0); ABG TOTAL CO2 28.2 MEQ/L (23.0-31.0); ABG pH (ARTERIAL) 7.422 UNITS (7.350-7.450)
[2022-05-27] MEDS: HEPARIN DRIP 25,000 UNITS in IV 1 EA IV SCH (05:45)
[2022-05-27 05:52] LABS: BASO # 0.1 10^3/uL (0.0-0.2); BASO % 0.4 % (0.0-1.0); EOS # 0.4 10^3/uL (0.0-0.5); EOS % 2.3 % (0.0-3.0); HEMATOCRIT 39.2 % (36.0-47.0); HEMOGLOBIN 11.5 g/dl (12.0-15.5); LYMPH # 2.1 10^3/uL (1.5-5.0); LYMPH % 11.4 % (24.0-44.0); MEAN CORPUSCULAR HEMOGLOBIN 25.7 pg (27.0-33.0); MEAN CORPUSCULAR HGB CONC 29.3 g/dl (32.0-36.5); MEAN CORPUSCULAR VOLUME 87.7 fl (80.0-96.0); MONO # 1.2 10^3/uL (0.0-0.8); MONO % 6.3 % (2.0-8.0); NEUTROPHILS # 14.5 10^3/uL (1.5-8.5); NEUTROPHILS % 79.1 % (36.0-66.0); PLATELET COUNT, AUTOMATED 104 10^3/uL (150-450); RED BLOOD COUNT 4.47 10^6/uL (4.00-5.40); WHITE BLOOD COUNT 18.4 10^3/uL (4.0-10.0)
[2022-05-27 06:33] LABS: MAGNESIUM LEVEL 1.9 MG/DL (1.8-2.4)
[2022-05-27 06:35] LABS: ALBUMIN 2.2 G/DL (3.2-5.2); BILIRUBIN,TOTAL 0.5 MG/DL (0.3-1.2); CALCIUM LEVEL 8.3 MG/DL (8.3-10.6); CK-MB VALUE MASS 1.8 NG/ML (<3.6); CREATININE FOR GFR 1.67 MG/DL (0.55-1.30); GLOMERULAR FILTRATION RATE 31.8 (>39); MB/CK RELATIVE INDEX 5.14 (< OR =4); PHOSPHORUS LEVEL 3.1 MG/DL (2.4-5.1); POTASSIUM SERUM 4.6 MMOL/L (3.5-5.1); TOTAL PROTEIN 5.1 G/DL (5.7-8.2)
[2022-05-27] MEDS ORDERED: NS 1,000 ML IV SCH (08:50)
[2022-05-27] MEDS: PANTOPRAZOLE 40MG VIAL IV SCH (09:15)
[2022-05-27] MEDS: methylPREDNISolone 40MG 1ML VIAL IV SCH ×2 (09:15→17:46)
[2022-05-28] VITALS (22 sets, daily range): BP systolic 157–187; BP diastolic 84–99; O2SAT 94
[2022-05-28] MEDS: CEFEPIME HCL 1 GM in D5W 50 ML IV SCH (00:50)
[2022-05-28] MEDS: IPRATROPIUM 0.5MG/ALBUTEROL 2.5MG INH SOL UD 3ML (DUONEB) NEB SCH ×4 (01:31→19:26)
[2022-05-28] MEDS: methylPREDNISolone 40MG 1ML VIAL IV SCH ×3 (04:43→17:16)
[2022-05-28] MEDS: HEPARIN DRIP 25,000 UNITS in IV 1 EA IV SCH (04:48)
[2022-05-28 05:01] LABS: BASO % 0.1 % (0.0-1.0); HEMOGLOBIN 11.7 g/dl (12.0-15.5); LYMPH # 1.2 10^3/uL (1.5-5.0); MEAN CORPUSCULAR VOLUME 86.7 fl (80.0-96.0); MONO # 0.6 10^3/uL (0.0-0.8); NEUTROPHILS # 13.5 10^3/uL (1.5-8.5); NEUTROPHILS % 87.3 % (36.0-66.0); PLATELET COUNT, AUTOMATED 101 10^3/uL (150-450); WHITE BLOOD COUNT 15.5 10^3/uL (4.0-10.0)
[2022-05-28 05:29] LABS: MAGNESIUM LEVEL 2.1 MG/DL (1.8-2.4)
[2022-05-28 05:32] LABS: ALBUMIN 2.5 G/DL (3.2-5.2); BILIRUBIN,TOTAL 0.5 MG/DL (0.3-1.2); CALCIUM LEVEL 9.1 MG/DL (8.3-10.6); CREATININE FOR GFR 1.35 MG/DL (0.55-1.30); GLOMERULAR FILTRATION RATE 40.6 (>39); POTASSIUM SERUM 4.9 MMOL/L (3.5-5.1); TOTAL PROTEIN 5.9 G/DL (5.7-8.2)
[2022-05-28 05:39] LABS: ABG BASE EXCESS 0.3 (-2.0-2.0); ABG HCO3 25.4 MEQ/L (22.0-26.0); ABG PARTIAL PRESSURE CO2 42.9 mmHg (35.0-45.0); ABG STANDARD HCO3 24.7 MEQ/L (22.0-26.0); ABG TOTAL CO2 26.8 MEQ/L (23.0-31.0); ABG pH (ARTERIAL) 7.391 UNITS (7.350-7.450)
[2022-05-28 05:40] LABS: ABG O2 SATURATION 92.5 % (95.0-99.0); ABG PARTIAL PRESSURE O2 65.6 mmHg (75.0-100.0)
[2022-05-28] MEDS: INSULIN LISPRO (NovoLOG) PER UNIT SC SCH ×4 (06:30→17:15)
[2022-05-28] MEDS ORDERED: POLYVINYL ALCOHOL OPHTH SOLN 15ML (LIQUITEARS) OU PRN (07:35)
[2022-05-28] MEDS ORDERED: ISOVUE-370 76% 100ML VIAL As Ordered ONE (09:10)
[2022-05-28] MEDS: PANTOPRAZOLE 40MG VIAL IV SCH (09:11)
[2022-05-28] MEDS: prednisoLONE ACET 1% OPHTH SUSP 5ML OS SCH ×2 (09:11→20:06)
[2022-05-28] MEDS: NYSTATIN 100,000 UNITS/GM TOPICAL PWD 15GM TOP SCH ×2 (09:12→20:05)
[2022-05-28] MEDS: ASPIRIN 81MG ENTERIC TABLET PO SCH (09:12)
[2022-05-28] MEDS ORDERED: VARIBAR PUDDING 40% w/v 230ML TUBE As Ordered ONE (11:30)
[2022-05-28] MEDS ORDERED: BARIUM SULFATE 700 MG TABLET (E-Z-DISK) As Ordered ONE (11:30)
[2022-05-28] MEDS ORDERED: E-Z-PAQUE 96% w/w SUSP 176GM BTL As Ordered ONE (11:30)
[2022-05-28] MEDS ORDERED: VARIBAR NECTAR 40% w/v 240ML SUSP BTL As Ordered ONE (11:30)
[2022-05-28] MEDS ORDERED: CLOPIDOGREL 300 MG TAB (PLAVIX) PO ONE (12:45)
[2022-05-28] MEDS: CEFEPIME HCL 2 GM in D5W MINI-BAG PLUS 50 ML IV SCH (13:26)
[2022-05-28] MEDS ORDERED: CARVedilol 3.125 MG TAB PO ONE (13:35)
[2022-05-28] MEDS: TORSEMIDE 20 MG TAB PO SCH (13:58)
[2022-05-28] MEDS: CARVedilol 3.125 MG TAB PO SCH (20:05)
[2022-05-28] MEDS: LATANOPROST 0.005% OPHTH SOLN 2.5 ML OD SCH (20:05)
[2022-05-28] MEDS ORDERED: INSULIN LISPRO (NovoLOG) PER UNIT SC SCH (21:00)
[2022-05-28] MEDS ORDERED: ATORVASTATIN 20 MG TAB PO SCH (21:00)
[2022-05-28] MEDS: HYDROMORPHONE HCL 0.5 MG/ 0.5 ML SYRINGE (J1170 PER 1) IV PRN (21:19)
[2022-05-29] VITALS (16 sets, daily range): BP systolic 128–190; BP diastolic 67–99; O2SAT 96
[2022-05-29] MEDS: IPRATROPIUM 0.5MG/ALBUTEROL 2.5MG INH SOL UD 3ML (DUONEB) NEB SCH ×4 (01:06→20:00)
[2022-05-29] MEDS: CEFEPIME HCL 2 GM in D5W MINI-BAG PLUS 50 ML IV SCH ×2 (02:28→13:24)
[2022-05-29] MEDS: methylPREDNISolone 40MG 1ML VIAL IV SCH (02:29)
[2022-05-29] MEDS ORDERED: hydrALAZINE 20MG/ML 1ML VIAL IV PRN (07:15)
[2022-05-29] MEDS ORDERED: HumuLIN N INSULIN (NovoLIN N) PER UNIT SC SCH (07:30)
[2022-05-29 08:08] LABS: HEMATOCRIT 39.4 % (36.0-47.0); MEAN CORPUSCULAR HEMOGLOBIN 25.8 pg (27.0-33.0); MEAN CORPUSCULAR HGB CONC 30.5 g/dl (32.0-36.5); MEAN CORPUSCULAR VOLUME 84.5 fl (80.0-96.0); RED BLOOD COUNT 4.66 10^6/uL (4.00-5.40)
[2022-05-29 08:33] LABS: CALCIUM LEVEL 8.5 MG/DL (8.3-10.6); CREATININE FOR GFR 1.01 MG/DL (0.55-1.30); GLOMERULAR FILTRATION RATE 56.7 (>39); POTASSIUM SERUM 4.2 MMOL/L (3.5-5.1)
[2022-05-29 08:34] LABS: PLATELET COUNT, AUTOMATED 97 10^3/uL (150-450)
[2022-05-29] MEDS: INSULIN LISPRO (NovoLOG) PER UNIT SC SCH ×2 (08:37→13:23)
[2022-05-29] MEDS: PANTOPRAZOLE 40MG VIAL IV SCH (08:38)
[2022-05-29] MEDS: TORSEMIDE 20 MG TAB PO SCH (08:38)
[2022-05-29] MEDS: ASPIRIN 81MG ENTERIC TABLET PO SCH (08:38)
[2022-05-29] MEDS: HEPARIN SOD (PORCINE) 5000UNITS/ML 1ML VIAL/SYRINGE SQ SCH ×2 (08:38→13:22)
[2022-05-29] MEDS: NYSTATIN 100,000 UNITS/GM TOPICAL PWD 15GM TOP SCH ×2 (08:39→20:16)
[2022-05-29] MEDS: prednisoLONE ACET 1% OPHTH SUSP 5ML OS SCH (08:39)
[2022-05-29] MEDS: CARVedilol 3.125 MG TAB PO SCH (08:40)
[2022-05-29] MEDS ORDERED: amLODIPine 5 MG TAB PO SCH (09:00)
[2022-05-29] MEDS ORDERED: CLOPIDOGREL 75 MG TAB PO SCH (09:00)
[2022-05-29] MEDS ORDERED: MEROPENEM INJ 2 GM in NS 100 ML IV SCH (12:10)
[2022-05-29] MEDS ORDERED: methylPREDNISolone 40MG 1ML VIAL IV SCH (14:00)
[2022-05-29] MEDS: HYDROMORPHONE HCL 0.5 MG/ 0.5 ML SYRINGE (J1170 PER 1) IV PRN ×3 (15:08→22:40)
[2022-05-29] MEDS ORDERED: ACETAMINOPHEN 650MG SUPP PR PRN (16:05)
[2022-05-29] MEDS ORDERED: LORazepam 1 MG TAB PO PRN (16:05)
[2022-05-29] MEDS ORDERED: SCOPOLAMINE 1MG TRANSDERMAL PATCH TOP PRN (16:05)
[2022-05-29] MEDS ORDERED: MORPHINE 10MG/0.5ML ORAL CONCENTRATE SOLUTION U/D SL PRN (16:05)
[2022-05-29] MEDS ORDERED: ONDANSETRON 4MG 2ML VIAL IV PRN (16:05)
[2022-05-29] MEDS ORDERED: rOPINIRole 0.25 MG TAB(REQUIP) PO SCH (18:00)
[2022-05-29] MEDS: LATANOPROST 0.005% OPHTH SOLN 2.5 ML OD SCH (20:15)
[2022-05-29] MEDS: PREGABALIN 100 MG CAP (LYRICA) PO SCH (20:15)
[2022-05-29] MEDS: FAMOTIDINE 20 MG TAB PO SCH (20:15)
[2022-05-30] MEDS: IPRATROPIUM 0.5MG/ALBUTEROL 2.5MG INH SOL UD 3ML (DUONEB) NEB SCH ×2 (01:28→07:29)
[2022-05-30] MEDS: HYDROMORPHONE HCL 0.5 MG/ 0.5 ML SYRINGE (J1170 PER 1) IV PRN ×3 (02:10→10:14)
[2022-05-30] MEDS: FAMOTIDINE 20 MG TAB PO SCH (08:40)
[2022-05-30] MEDS: PREGABALIN 100 MG CAP (LYRICA) PO SCH (08:40)
[2022-05-30] MEDS: NYSTATIN 100,000 UNITS/GM TOPICAL PWD 15GM TOP SCH (08:40)
[2022-05-30] MEDS ORDERED: HYOS125TA PO (10:51)
[2022-05-30] MEDS ORDERED: MORP1SOL5 PO (10:51)
[2022-06-01] MEDS ORDERED: LYRI200C PO (15:47)
[2022-06-01] MEDS ORDERED: HYDR-3719 PO (15:47)
== END 2022-05-30 12:19 | disposition left against medical advice (07) | DRG 871 ==
LOC: M ED 21:16 → M ED INP 05-26 01:52 → EEVIPCON 05-26 01:52 → ENRESERV 05-26 08:11 → M ICU 05-26 09:06
PROVIDERS: ADMIT Internal Medicine Critical Care Medicine; ATTEND Internal Medicine
DX: A41.9 Sepsis, unspecified organism (principal); R65.21 Severe sepsis with septic shock; J96.21 Acute and chronic respiratory failure with hypoxia; I21.4 Non-ST elevation (NSTEMI) myocardial infarction; N39.0 Urinary tract infection, site not specified; N17.9 Acute kidney failure, unspecified; I31.39 Other pericardial effusion (noninflammatory); J44.9 Chronic obstructive pulmonary disease, unspecified; E11.22 Type 2 diabetes mellitus with diabetic chronic kidney disease; I27.81 Cor pulmonale (chronic); M54.9 Dorsalgia, unspecified; E87.5 Hyperkalemia; R29.6 Repeated falls; E78.00 Pure hypercholesterolemia, unspecified; G25.81 Restless legs syndrome; Z66 Do not resuscitate; M10.9 Gout, unspecified; R79.89 Other specified abnormal findings of blood chemistry; I27.20 Pulmonary hypertension, unspecified; R55 Syncope and collapse; R94.5 Abnormal results of liver function studies; J20.9 Acute bronchitis, unspecified; Z51.5 Encounter for palliative care; Z79.899 Other long term (current) drug therapy; Z79.82 Long term (current) use of aspirin; Z79.4 Long term (current) use of insulin; Z87.891 Personal history of nicotine dependence